=== PATIENT | male | born 1970 | race Caucasian/White ===

== ENCOUNTER 2017-12-20 15:08 | Emergency (ER) | payer OTHER, SELFPAY ==
[2017-12-20 15:09] VITALS: BP 147/68; PULSE 96; RESP 12; TEMP 36.8; O2SAT 95; BMI 27.4
--- NOTE | 2017-12-20 15:25 | ED.VISSUMM ---
- ER Visit Summary Date of Service: 12/20/17 Chief Complaint: I am too drunk History of Present Illness: The patient is a 47 M who was brought to the emergency room by friends. He is staying with these friends. He admits to drinking for many years. His beverage of choice is vodka. He is unable to tell me how much he drank other than I drank a lot. Patient had to be aroused several times during the history and physical because he would doze off. He has absolutely no complaints. History is limited secondary to acute intoxication. Physical Examination: Vital signs are remarkable and elevated blood pressure 147/68. He is not alert, but he is oriented. He has a strabismus. Pupils equal round reactive. Extra muscles are intact. Sclerae anicteric. Mucosa is moist. Nares patent without discharge. Neck is supple. Heart is regular without murmur, gallop or rub. S1 and S2 are normal. Lungs are clear to auscultation with good movement of air bilaterally. Abdomen is soft nontender with bowel sounds present. There is no hepatosplenomegaly. There are no bruises noted on the torso or extremities. There is no evidence of inguinal hernia. Motor is 5/5. Sensations intact. DTRs are 1-2+ symmetric with no clonus. Test Results: This is unremarkable. Platelet count is on 23,000. BMP is unremarkable. INR is normal. Alcohol is 362. Emergency Department Course and Treatment: IV was established she was made n.p.o. and placed on a monitor. Will obtain an alcohol level and in light of the fact that he drinks on a regular basis will obtain electronic panel to rule out hyponatremia, CBC to rule out anemia, thrombocytopenia and PT/INR to assess liver function. Treatment Plan: Since patient's POA is his mother and she was transferred to another facility he will be observed until he is sober and able to leave under his own power. Disposition: Discharge with significant other to [facility] where they are presently staying Impression: 1. Decreased level of consciousness secondary to acute alcohol intoxication 2. Thrombocytopenia This note was generated with [employer]ation software. It may contain incorrect words, spelling, and punctuation that were not noted in review of the chart prior to signing ED Disposition - Plan for ED Patient: Disposition: Home or Assisted Living Chief Complaint: ETOH Intox Instructions: ED Alcohol Intoxication Referrals: Dagoberto Mari MD [Primary Care Provider] - As Needed
--- NOTE | 2017-12-20 15:28 | ED.DCSUM_ITS ---
- ER Visit Summary Date of Service: 12/20/17 Chief Complaint: I am too drunk History of Present Illness: The patient is a 47 M who was brought to the emergency room by friends. He is staying with these friends. He admits to drinking for many years. His beverage of choice is vodka. He is unable to tell me how much he drank other than I drank a lot. Patient had to be aroused several times during the history and physical because he would doze off. He has absolutely no complaints. History is limited secondary to acute intoxication. Physical Examination: Vital signs are remarkable and elevated blood pressure 147 /68. He is not alert, but he is oriented. He has a strabismus. Pupils equal round reactive. Extra muscles are intact. Sclerae anicteric. Mucosa is moist. Nares patent without discharge. Neck is supple. Heart is regular without murmur, gallop or rub. S1 and S2 are normal. Lungs are clear to auscultation with good movement of air bilaterally. Abdomen is soft nontender with bowel sounds present. There is no hepatosplenomegaly. There are no bruises noted on the torso or extremities. There is no evidence of inguinal hernia. Motor is 5/5. Sensations intact. DTRs are 1-2+ symmetric with no clonus. Test Results: This is unremarkable. Platelet count is on 23,000. BMP is unremarkable. INR is normal. Alcohol is 362. Emergency Department Course and Treatment: IV was established she was made n.p.o. and placed on a monitor. Will obtain an alcohol level and in light of the fact that he drinks on a regular basis will obtain electronic panel to rule out hyponatremia, CBC to rule out anemia, thrombocytopenia and PT/INR to assess liver function. Treatment Plan: Since patient's POA is his mother and she was transferred to another facility he will be observed until he is sober and able to leave under his own power. Disposition: Discharge with significant other to [facility] where they are presently staying Impression: 1. Decreased level of consciousness secondary to acute alcohol intoxication 2. Thrombocytopenia This note was generated with [employer] software. It may contain incorrect words, spelling, and punctuation that were not noted in review of the chart prior to signing ED Disposition - Plan for ED Patient: Disposition: Home or Assisted Living Chief Complaint: ETOH Intox Instructions: ED Alcohol Intoxication Referrals: Dagoberto Mari MD [Primary Care Provider] - As Needed
[2017-12-20 15:43] LABS: Hematocrit 44.5 % (40-54); Hemoglobin 15.4 g/dl (13.0-16.5); Mean Corp Hgb Conc 34.6 g/gl (32-36); Mean Corpuscular Hgb 32.2 pg (27.0-32.0); Mean Corpuscular Volume 92.9 fL (80-94); Mean Platelet Vol. 9.4 fl (6.2-12.0); Platelet Count 123 K/mm3 (150-450); RBC Distribution Width CV 14.3 % (11.6-14.6); RBC Distribution Width SD 47.2 fl (35.1-43.9); Red Blood Count 4.79 M/mm3 (4.6-6.2); White Blood Count 4.7 K/mm3 (4.4-11.0)
[2017-12-20 15:50] LABS: Scan Indicated on CBC? Y/N NO
[2017-12-20 15:56] LABS: International Normalized Ratio 0.9; Prothrombin Time (Protime)PT. 12.5 SECONDS (11.7-14.9)
[2017-12-20 15:57] LABS: ALB/GLOB Ratio 1.1 RATIO (0.9-2.4); AST(SGOT) 17 U/L (15-37); Alanine Aminotransfer ALT/SGPT 18 U/L (16-61); Albumin, Serum 3.8 g/dL (3.2-5.0); Alkaline Phosphatase 94 U/L (45-117); Anion Gap 5 (5-15); BUN 15 mg/dL (7-18); BUN/Creat Ratio 17.5 RATIO (10-20); Chloride 109 mmol/L (98-107); Creatinine, Serum 0.86 mg/dL (0.70-1.30); EST Glomerular Filtration Rate 101 mL/min (>60); Est Glom Filt Rate - Afr Amer 122 mL/min (>60); Estimated Creatinine Clearance 108.46 ml/min; Globulin 3.5 g/dL (2.2-4.2); Glucose 90 mg/dL (74-106); Potassium 3.8 mmol/L (3.5-5.1); Protein, Total 7.3 g/dL (6.4-8.2); Sodium Level 145 mmol/L (136-145)
[2017-12-20 17:08] VITALS: PULSE 87; RESP 14; O2SAT 96
--- NOTE | 2017-12-20 18:30 | ED.RN ---
Pt called out asking for nurse, states he wants to leave and that we cant legally keep in here. Pt states he is going to call the commissary steward and report us for keeping him against his will. pt aware he is not pinked slipped. Advised we need to observe him until his alcohol level is low enough for him to safely go home. Dr. Seay aware
[2017-12-20 20:13] VITALS: RESP 14
[2017-12-20 21:34] VITALS: BP 132/102; PULSE 84; RESP 18; O2SAT 98
== END 2017-12-20 21:35 | disposition home or self-care (01) ==
PROVIDERS: Emergency Provider Emergency Medicine; Family Provider Family Medicine; PCP Family Medicine
DX: F10.129 Alcohol abuse with intoxication, unspecified (principal); R40.0 Somnolence; D69.6 Thrombocytopenia, unspecified; E66.9 Obesity, unspecified; Y90.8 Blood alcohol level of 240 mg/100 ml or more
CPT/HCPCS: 80053; 80320; 85027; 85610; 99284; A4216; G0480

== ENCOUNTER 2017-12-22 09:31 | Emergency (ER) | payer OTHER, SELFPAY ==
[2017-12-22 09:32] VITALS: BP 134/87; PULSE 86; PULSE 89; RESP 14; RESP 15; TEMP 36.9; O2SAT 92; O2SAT 93; BMI 29.0
[2017-12-22 11:07] VITALS: BP 136/85; PULSE 101; RESP 15; O2SAT 91
[2017-12-22 12:14] VITALS: BP 137/85; PULSE 122; RESP 14; O2SAT 95
--- NOTE | 2017-12-22 13:04 | ED.RN ---
PT AMBULATING IN ED, GAIT STEADY, COHERENT. REQUESTING TO GO HOME. DR BATISTA AWARE AND STS THAT IF PT CAN FIND A DC RIDE, PT CAN GO HOME. THIS NURSE CALLED SILVIO (GIRLFRIEND) AND DAVIE (STEP-DAD), AND BOTH PARTIES HAVE REFUSED TO OBTAIN PT FOR DC RIDE. BOTH HAVE EXPRESSED CONCERN THAT HE NEEDS HELP AND NEEDS TO SPEAK TO CRISIS COUNSELOR OR HE WILL LOSE HIS JOB DESPITE THAT THE PT DENIES NEED TO SPEAK TO CRISIS, SUICIDAL IDEATION, HOMICIDAL IDEATION, OR WANT TO SOBER UP. FAMILY ALSO STATED THAT PT DID NOT EXPRESS WANTING TO GET CLEAN. DR BATISTA AWARE OF THIS.
[2017-12-22 14:09] VITALS: BP 158/102; PULSE 104; RESP 16; O2SAT 94
--- NOTE | 2017-12-22 14:46 | ED.RN ---
LATE ENTRY, AT 1410 THIS NURSE CALL PT'S GIRLFRIEND SILVIO AT [phone]. PT HAS BEEN TALKING INTERMITTENTLY SINCE.
--- NOTE | 2017-12-22 14:54 | ED.DCSUM_ITS ---
- ER Visit Summary Date of Service: 12/22/17 Chief Complaint: Alcohol intoxication History of Present Illness: The patient is a 47 M who presents with acute alcohol intoxication. He was seen a couple of days ago for similar reasons. Apparently someone from where he is staying called EMS because he was acutely intoxicated this morning. The patient admits to heavy alcohol use. He currently has no complaints. He denies any recent illness. No fall or injury. I spoke to EMS. He was not belligerent. He was not suicidal. She states he is uncertain why he was brought but believes it was just sober up. Physical Examination: Afebrile vitals are unremarkable Moist because membranes Heart regular rate and rhythm Lungs are clear Abdomen soft Patient is easily arousable he does have slurred speech and appeared clinically intoxicated there are no focal or lateralizing neurological deficits Test Results: Not indicated Emergency Department Course and Treatment: Patient had screening 2 days ago for alcohol-related abnormality such as anemia, coagulopathy, hyponatremia. I do not believe there is an indication for any repeat lab testing at this time. He has no complaints. He was observed until clinically sober. He called a couple of family members. They would not pick him up. Apparently they wanted him to go to rehab. We explained that we cannot send somebody to rehab unless they themselves want this. The patient just wants to leave. He was able to get a hold of his girlfriend who he states will come pick him up. Has been reevaluated multiple times. At the time of most recent evaluation he has clear speech and is able to ambulate without difficulty and make phone calls for rides. Again he has no complaints. Patient was discharged. Treatment Plan: [] Disposition: Discharge Impression: Acute alcohol intoxication. This note was generated with [employer] dictation software. It may contain incorrect words, spelling, and punctuation that were not noted in review of the chart prior to signing ED Disposition - Plan for ED Patient: Chief Complaint: ETOH Intox Referrals: Dagoberto Mari MD [Primary Care Provider] -
--- NOTE | 2017-12-22 14:54 | ED.DEP ---
ED Disposition - Plan for ED Patient: Chief Complaint: ETOH Intox Instructions: ED Alcohol Intoxication Referrals: Dagoberto Mari MD [Primary Care Provider] -
--- NOTE | 2017-12-22 14:56 | ED.RN ---
THIS NURSE SPOKE WITH PT'S GIRLFRIEND, SILVIO, AND SILVIO WILL BE HERE AROUND [address] BATISTA AWARE OF SAME.
[2017-12-22 15:33] VITALS: BP 165/99; PULSE 103; RESP 16; O2SAT 95
--- NOTE | 2017-12-26 13:21 | ED.RN ---
Work note given for 12/22/17.
== END 2017-12-22 15:34 | disposition home or self-care (01) ==
PROVIDERS: Emergency Provider Emergency Medicine; Family Provider Family Medicine; PCP Family Medicine
DX: F10.129 Alcohol abuse with intoxication, unspecified (principal); I10 Essential (primary) hypertension; Z79.899 Other long term (current) drug therapy
CPT/HCPCS: 99283

== ENCOUNTER 2018-03-15 01:29 | Emergency (ER) | payer OTHER, SELFPAY ==
[2018-03-15] VITALS (11 sets, daily range): BP systolic 128–174; BP diastolic 72–92; PULSE 75–107; RESP 16–24; TEMP 36.8; O2SAT 95–100; BMI 29.5
--- NOTE | 2018-03-15 01:41 | EKG12_ITS ---
Test Reason : OVERDOSE/ETOH Blood Pressure : / mmHG Vent. Rate : 098 BPM Atrial Rate : 098 BPM P-R Int : 160 ms QRS Dur : 086 ms QT Int : 360 ms P-R-T Axes : 043 -07 028 degrees QTc Int : 459 ms Normal sinus rhythm Normal ECG Confirmed by DUONG LAKE, AVRIL ([id number]), editor farm journal ROSANNE SALAZAR ([id number]) on 03/17/2018 1:06:32 PM Referred By: KAREL Confirmed By:AVRIL WATTERS MD
--- NOTE | 2018-03-15 01:45 | ED.DCSUM_ITS ---
- ER Visit Summary Date of Service: 03/15/18 Chief Complaint: [Overdose] History of Present Illness: The patient is a 47 M [who presents the emergency department after overdosing on his girlfriend's medications. He is a daily drinker he drinks heavily. Tonight he took 9 2 mg Klonopin hoping that he would not wake up. He was pink slipped by police as he did tell his girlfriend that he would slice her throat and then his and also told her that he was going up by a gun so he could blow his brains out. When asked why he took this medication he states that he was not too happy with his . He denies any medical problems.] Physical Examination: [] Blood pressure 138/92 heart rate 104 respiratory rate 23 pulse ox 95% on room air Somnolent male in no acute distress Conjunctivae injected bilaterally with drooping eyelids bilaterally that are symmetric Slow slurred speech Regular tachycardic rhythm no murmurs Clear to auscultation bilaterally no respiratory distress Abdomen soft and nontender normal bowel sounds no masses Patient speech and actions are delayed slurred and ataxic but there are no focal deficits he is alert and oriented ?3 Test Results: [] Emergency Department Course and Treatment: [Patient was given 2 L of fluid. He was placed on a clinical research monitor. EKG was obtained. He took these medicines about 10 PM. Activated charcoal then was not indicated. Workup for overdose was pursued. Suicide precautions were maintained. Patient was evaluated by mental health. [place] slip was maintained by police as they stated he threatened to get a gun and shoot himself and also had threatened to kill himself and his girlfriend. Formal disposition is pending] Treatment Plan: [] Disposition: [Pending] Impression: [Suicidal ideation, intentional overdose] This note was generated with [employer] dictation software. It may contain incorrect words, spelling, and punctuation that were not noted in review of the chart prior to signing ED Disposition - Plan for ED Patient: Disposition: Home or Assisted Living Chief Complaint: ETOH Intox Referrals: Dagoberto Mari MD [Primary Care Provider] -
[2018-03-15] MEDS: 0.9% Normal Saline 1,000 ML 999 ML IV ×2 (01:53→02:51)
[2018-03-15 02:04] LABS: Absolute Neutrophil Count 2.9 X10^3/uL (2.0-7.7); Basophil# 0.02 X10^3/uL; Basophil% 0.3 % (0-1); Eosinophil# 0.08 X10^3/uL; Eosinophils% 1.3 % (0-5); Hematocrit 41.4 % (40-54); Lymphocyte % 39.4 % (19-41); Mean Corp Hgb Conc 36.2 g/gl (32-36); Mean Corpuscular Hgb 33.3 pg (27.0-32.0); Mean Corpuscular Volume 91.8 fL (80-94); Mean Platelet Vol. 9.3 fl (6.2-12.0); Monocyte# 0.64 X10^3/uL; Monocyte% 10.5 % (0-10); Neutrophil # 2.93 X10^3/uL (2.7-7.7); Neutrophil % 48.2 % (47-70); POSITIVE COUNT NO; POSITIVE DIFFERENTIAL NO; POSITIVE MORPHOLOGY NO; Platelet Count 181 K/mm3 (150-450); RBC Distribution Width CV 13.7 % (11.6-14.6); RBC Distribution Width SD 45.1 fl (35.1-43.9); Red Blood Count 4.51 M/mm3 (4.6-6.2); White Blood Count 6.1 K/mm3 (4.4-11.0)
[2018-03-15 02:23] LABS: Anion Gap 6 (5-15); BUN 22 mg/dL (7-18); BUN/Creat Ratio 21.2 RATIO (10-20); Calcium,Total 7.5 mg/dL (8.5-10.1); Chloride 103 mmol/L (98-107); Creatinine, Serum 1.04 mg/dL (0.70-1.30); EST Glomerular Filtration Rate 81 mL/min (>60); Est Glom Filt Rate - Afr Amer 98 mL/min (>60); Estimated Creatinine Clearance 89.69 ml/min; Glucose 112 mg/dL (74-106); Potassium 4.1 mmol/L (3.5-5.1); Sodium Level 139 mmol/L (136-145); Thyroid Stim Hormone (TSH) 1.81 uIU/mL (0.358-3.74)
[2018-03-15 03:33] LABS: Acetaminophen (Tylenol) Level < 10.0 ug/mL (10.0-30.0); Salicylate < 1.7 mg/dL (2.8-20.0)
[2018-03-15 03:57] LABS: Color, Urine Yellow (Yellow); Glucose, Dipstick Normal (Normal); Ketone-Dipstick 5 mg/dl (Negative); Leukocyte Esterase-Dipstick Negative /ul (Negative); Nitrite-Dipstick Negative (Negative); Occult Blood-Urine 50 /ul (Negative); Protein-Dipstick 30 mg/dl (Negative); Specific Gravity, Urine 1.025 (1.002-1.030); Urine Bilirubin Dipstick Negative (Negative); Urine Clarity Sl. Cloudy (Clear); Urine Urobilinogen Normal (Normal); White Blood Cells 0 SEEN /hpf (0-5)
[2018-03-15 04:17] LABS: Amphetamine Urine VISTA NEGATIVE (<1000 ng/mL); Barbiturate Urine VISTA NEGATIVE (< 200 ng/mL); Benzodiazepine Urine VISTA NEGATIVE (< 200 ng/mL); Cocaine Urine VISTA NEGATIVE (< 300 ng/mL); Ecstacy Urine VISTA POSITIVE (< 500 ng/mL); Methadone Urine VISTA NEGATIVE (< 300 ng/mL); PCP Urine VISTA NEGATIVE (< 25 ng/mL); THC Urine VISTA NEGATIVE (< 50 ng/mL); Vista UDS pH Range 6
[2018-03-15 04:20] LABS: Bacteria 1+ /hpf (None Seen); Mucous, Urine 1+ /hpf (<or=2+); Squamous Epithelial Cells - UA 0-5 SEEN /hpf (0-5)
[2018-03-15 04:21] LABS: Red Blood Cells-Urine 0-5 SEEN /hpf (0-5)
--- NOTE | 2018-03-15 06:21 | ED.RN ---
called crisis to see this pt, rosaline is summer sessions director
--- NOTE | 2018-03-15 06:54 | NURSING ---
CHEYENNE, CRISIS, HERE
--- NOTE | 2018-03-15 08:24 | ED.RN ---
Sasha Holden, Mother, is POA phone [phone] or [phone]
--- NOTE | 2018-03-15 10:09 | NURSING ---
LORENA KAT, CALLED WITH AN UPDATE. SHE HAS FAXED EVERYTHING TO [facility] AND WAITING TO HEAR BACK FROM THEM.
--- NOTE | 2018-03-15 11:11 | ED.RN ---
pt POA mother and removed pt's money from his wallet to secure it.
== END 2018-03-15 12:24 | disposition home or self-care (01) ==
PROVIDERS: Emergency Provider Emergency Medicine; Family Provider Family Medicine; PCP Family Medicine
DX: R45.851 Suicidal ideations (principal); F10.10 Alcohol abuse, uncomplicated; T42.4X2A Poisoning by benzodiazepines, intentional self-harm, initial encounter; Z79.899 Other long term (current) drug therapy; Y92.009 Unspecified place in unspecified non-institutional (private) residence as the place of occurrence of the external cause
CPT/HCPCS: 80048; 80307; 80320; 80329; 81001; 84443; 85025; 93005; 96360; 99284; J7030; A4216; G0480

== ENCOUNTER 2018-03-23 18:53 | Emergency (ER) | payer OTHER, SELFPAY ==
[2018-03-23 18:55] VITALS: BP 127/90; PULSE 98; RESP 16; TEMP 37.3; O2SAT 95; BMI 28.7
[2018-03-23 19:30] LABS: Absolute Lymphocyte Count 1.67 X10^3/ul (0.83-4.51); Absolute Neutrophil Count 2.2 X10^3/uL (2.0-7.7); Basophil# 0.03 X10^3/uL; Basophil% 0.7 % (0-1); Eosinophil# 0.06 X10^3/uL; Eosinophils% 1.3 % (0-5); Hematocrit 43.9 % (40-54); Lymphocyte # 1.67 X10^3/ul (4.0); Lymphocyte % 36.3 % (19-41); Mean Corp Hgb Conc 34.2 g/gl (32-36); Mean Corpuscular Hgb 32.3 pg (27.0-32.0); Mean Corpuscular Volume 94.4 fL (80-94); Mean Platelet Vol. 8.7 fl (6.2-12.0); Monocyte# 0.66 X10^3/uL; Monocyte% 14.3 % (0-10); Neutrophil # 2.17 X10^3/uL (2.7-7.7); Neutrophil % 47.2 % (47-70); Platelet Count 222 K/mm3 (150-450); RBC Distribution Width CV 14.4 % (11.6-14.6); RBC Distribution Width SD 49.1 fl (35.1-43.9); Red Blood Count 4.65 M/mm3 (4.6-6.2); White Blood Count 4.6 K/mm3 (4.4-11.0)
[2018-03-23 19:33] LABS: POSITIVE COUNT NO; POSITIVE DIFFERENTIAL NO; POSITIVE MORPHOLOGY NO
[2018-03-23 19:43] LABS: Anion Gap 6 (5-15); BUN 13 mg/dL (7-18); BUN/Creat Ratio 14.7 RATIO (10-20); Chloride 105 mmol/L (98-107); Creatinine, Serum 0.88 mg/dL (0.70-1.30); EST Glomerular Filtration Rate 98 mL/min (>60); Est Glom Filt Rate - Afr Amer 118 mL/min (>60); Glucose 83 mg/dL (74-106); Potassium 3.7 mmol/L (3.5-5.1); Sodium Level 141 mmol/L (136-145)
--- NOTE | 2018-03-23 19:55 | RAD_ITS ---
STUDY: X-RAY - LEFT FOOT CLINICAL: Male, 47 years old. Injury to the great toe. TECHNIQUE: 3 view(s) of the foot. COMPARISON: None. FINDINGS: Normal talus, calcaneus, and tarsal bones. Normal visualized subtalar, talonavicular, calcaneocuboid, tarsal and tarsometatarsal articulations. Normal metatarsi. Normal metatarsophalangeal joint of the great toe. Normal tibial and fibular sesamoid bones. Normal phalanges of the great toe. Normal second through fifth metatarsophalangeal joints. Mild arthrosis of the interphalangeal joints of the lesser toes. Normal phalanges of the lesser toes. The soft tissue structures are unremarkable. RAD/Foot min 3 Views IMPRESSION: Without degenerative changes of the forefoot. There is no acute fracture or dislocation. Electronically Signed: Michele Bond DO at 20:07 EDT Tel [phone], Service support ,
[2018-03-23 20:11] VITALS: RESP 18
[2018-03-23 20:13] LABS: Amphetamine Urine VISTA NEGATIVE (<1000 ng/mL); Barbiturate Urine VISTA POSITIVE (< 200 ng/mL); Benzodiazepine Urine VISTA POSITIVE (< 200 ng/mL); Cocaine Urine VISTA NEGATIVE (< 300 ng/mL); Ecstacy Urine VISTA NEGATIVE (< 500 ng/mL); Methadone Urine VISTA NEGATIVE (< 300 ng/mL); PCP Urine VISTA NEGATIVE (< 25 ng/mL); THC Urine VISTA NEGATIVE (< 50 ng/mL); Vista UDS pH Range 6
[2018-03-23 20:43] LABS: Acetaminophen (Tylenol) Level < 2.0 ug/mL (10.0-30.0); Salicylate < 1.7 mg/dL (2.8-20.0)
[2018-03-23 21:00] VITALS: RESP 16
[2018-03-23 22:04] VITALS: RESP 17
[2018-03-23 23:00] VITALS: RESP 18
[2018-03-23 23:42] VITALS: BP 136/76; PULSE 89; RESP 18; O2SAT 97
--- NOTE | 2018-03-23 23:42 | ED.DCSUM_ITS ---
- ER Visit Summary Date of Service: 03/23/18 Chief Complaint: Depression History of Present Illness: The patient is a 47 M presenting for evaluation secondary depression. Patient has an underlying history of depression and suicide attempts and actually was just recently released from a facility. Patient apparently last night took 9 Klonopin stating that he knew that it potentially could hurt him but he just wanted to sleep. Patient was drinking alcohol today and cut his arm. Patient states that he was trying to hurt himself but denies that he is being suicidal. Review of systems otherwise negative. Physical Examination: Vital signs within normal limits. Physical exam is notable for examination left upper extremity which shows some superficial abrasions in the left lower extremity which shows avulsion of the great toenail without any evidence of laceration to the nailbed. Patient has a flat affect and poor insight but denies being suicidal or homicidal Test Results: Screening workup was found to be unremarkable including x-ray of the foot Emergency Department Course and Treatment: Patient presented for evaluation secondary to suicidal type gestures. Patient's workup showed positive toxicology ethanol screens. His x-ray of the foot was negative. Patient was evaluated by crisis, who had a discussion with myself as well and while the patient has impulsivity and poor insight I do not believe that he is currently a risk to himself. Patient will be given a acute follow-up appointment in the outpatient setting. Disposition: Discharge Impression: 1. Depression 2. Left great toenail avulsion This note was generated with [employer] dictation software. It may contain incorrect words, spelling, and punctuation that were not noted in review of the chart prior to signing ED Disposition - Plan for ED Patient: Disposition: Home or Assisted Living Chief Complaint: Suicidal Diagnosis: Toenail avulsion, Depression Instructions: ED Depression Referrals: Dagoberto Mari MD [Primary Care Provider] - Additional Instructions: Followup with Crisis as scheduled
== END 2018-03-23 23:45 | disposition home or self-care (01) ==
PROVIDERS: Emergency Provider Emergency Medicine; Family Provider Family Medicine; PCP Family Medicine
DX: F32.9 Major depressive disorder, single episode, unspecified (principal); S91.202A Unspecified open wound of left great toe with damage to nail, initial encounter; Z79.899 Other long term (current) drug therapy; X58.XXXA Exposure to other specified factors, initial encounter; Y93.9 Activity, unspecified; Y92.9 Unspecified place or not applicable; Y99.9 Unspecified external cause status
CPT/HCPCS: 73630; 80048; 80307; 80320; 80329; 85025; 99285; G0480

== ENCOUNTER 2018-05-01 15:39 | Inpatient (IN) | payer MEDICAID, SELFPAY ==
[2018-05-01] VITALS (10 sets, daily range): BP systolic 131–160; BP diastolic 73–97; PULSE 114–156; RESP 15–24; TEMP 36.7; O2SAT 93–99; BMI 28.7; BMI 28.3
--- NOTE | 2018-05-01 16:01 | ED.DCSUM_ITS ---
- ER Visit Summary Date of Service: 05/01/18 Chief Complaint: Jaundice History of Present Illness: The patient is a [address] Dagoberto Mari in [facility]. He reports that he has been binge drinking for 1 month. He is a poor informant. When asked the amount he drinks he reports I do not know how much-a ton. When asked what he drinks he reports I drink everything. He states his last drink was at 4 AM and at that point he had vodka and orange juice. Patient reports that he has jaundice that began approximate 1 week ago and has been gradually increasing. He complains of subjective fever and chills. He has epigastric abdominal pain that is 7 out of 10 in severity. He has had nausea with multiple episodes of emesis. No blood in his emesis. He has diffuse myalgias and generalized weakness. Reports he has not eaten anything for approximately 5 days. Physical Examination: Vitals: 98.1, 139/73, 156, 22, 95% room air which is not hypoxic. General: Well-nourished and well-developed. Head: Normocephalic atraumatic. Neck: Supple, no lymphadenopathy. No JVD. Nontender. Cardiovascular: Regular rate and rhythm. No murmurs. Respiratory: No respiratory distress. Clear to auscultation bilaterally. Abdominal: Soft, moderate epigastric tenderness to palpation, nondistended, normal bowel sounds. No guarding, rebound, or peritoneal signs. Back: Nontender. Extremities: Nontender, no edema. Skin: Jaundiced. Neurologic: Alert and oriented ?3. Cranial nerves II through XII are intact. Normal strength and sensation. Psych: Depressed affect. Test Results: CBC is normal. Blood alcohol level is 0. Chem-7 is remarkable for a sodium 124, chloride of 86, glucose 135, calcium 7.9, creatinine 1.44. LFTs are marked for total bili of 12.1 and direct bili of 8.47. Alk phos of 604. ALT is 360, AST is 141. Lipase is normal. Emergency Department Course and Treatment: Patient had an IV placed. He was given Zofran and Ativan IV. He was given Librium p.o. he was given 2 L of normal saline. Treatment Plan: I left a message for [facility] the patient is clearly in alcohol withdrawal. He will be discussed with the hospitalist and admitted for further evaluation and treatment. Disposition: Admitted in serious condition. Impression: 1. Jaundice. 2. Alcohol withdrawal. 3. Elevated LFTs. 4. Hyponatremia. 5. Acute renal insufficiency. 6. Critical care time 30 minutes. This note was generated with [employer] software. It may contain incorrect words, spelling, and punctuation that were not noted in review of the chart prior to signing ED Disposition - Plan for ED Patient: Chief Complaint: Substance Abuse Referrals: Dagoberto Mari MD [Primary Care Provider] -
[2018-05-01] MEDS: 0.9% Normal Saline 1,000 ML 1000 ML IV ×2 (16:23→17:19)
[2018-05-01] MEDS: Ondansetron 4 MG/2 ML Vial IV (16:26)
[2018-05-01] MEDS: LORazepam 2 MG/ML Syringe IV (16:26)
[2018-05-01 16:39] LABS: Absolute Lymphocyte Count 1.43 X10^3/ul (0.83-4.51); Absolute Neutrophil Count 5.2 X10^3/uL (2.0-7.7); Basophil# 0.02 X10^3/uL; Basophil% 0.3 % (0-1); Hematocrit 40.2 % (40-54); Hemoglobin 13.8 g/dl (13.0-16.5); Lymphocyte # 1.43 X10^3/ul (4.0); Lymphocyte % 19.3 % (19-41); Mean Corp Hgb Conc 34.3 g/gl (32-36); Mean Corpuscular Hgb 33.7 pg (27.0-32.0); Mean Platelet Vol. 10.9 fl (6.2-12.0); Monocyte# 0.73 X10^3/uL; Monocyte% 9.9 % (0-10); Neutrophil # 5.19 X10^3/uL (2.7-7.7); Neutrophil % 70.1 % (47-70); Platelet Count 150 K/mm3 (150-450); RBC Distribution Width CV 16.7 % (11.6-14.6); RBC Distribution Width SD 57.8 fl (35.1-43.9); White Blood Count 7.4 K/mm3 (4.4-11.0)
[2018-05-01 16:42] LABS: POSITIVE COUNT NO; POSITIVE DIFFERENTIAL NO; POSITIVE MORPHOLOGY NO
[2018-05-01] MEDS: chlordiazePOXIDE 25 MG Capsule 50 MG PO (17:18)
--- NOTE | 2018-05-01 17:33 | ED.RN ---
AFTER FAMILY LEFT THE ROOM PT BEGAN TO ACCUSE STAFF OF TOUCHING HIS PENIS. DR AND STAFF INFORMED. TWO STAFF WILL ENTER PATIENTS ROOM AT ALL TIMES. ETHERNET NETWORK ARCHITECT MADE AWARE OF ISSUE AND INFORMED OF PLAN OF CARE. Chely BLUM RN
[2018-05-01 17:45] LABS: Alcohol, Blood (Medical)-Serum < 3.0 mg/dL
[2018-05-01 18:34] LABS: Albumin, Serum 2.4 g/dL (3.2-5.0); BUN 12 mg/dL (7-18); BUN/Creat Ratio 8.3 RATIO (10-20); Calcium,Total 7.9 mg/dL (8.5-10.1); Creatinine, Serum 1.44 mg/dL (0.70-1.30); EST Glomerular Filtration Rate 55 mL/min (>60); Est Glom Filt Rate - Afr Amer 67 mL/min (>60); Estimated Creatinine Clearance 64.07 ml/min; Globulin 3.4 g/dL (2.2-4.2); Glucose 135 mg/dL (74-106); Protein, Total 5.8 g/dL (6.4-8.2)
[2018-05-01 18:35] LABS: AST(SGOT) 360 U/L (15-37); Lipase 197 U/L (73-393)
[2018-05-01 18:36] LABS: Alanine Aminotransfer ALT/SGPT 141 U/L (16-61); Alkaline Phosphatase 604 U/L (45-117); Anion Gap 15 (5-15); Bilirubin, Direct 8.47 mg/dL (0.00-0.30); Chloride 86 mmol/L (98-107); Potassium 3.9 mmol/L (3.5-5.1); Sodium Level 124 mmol/L (136-145)
[2018-05-01 20:51] LABS: Amphetamine Urine VISTA NEGATIVE (<1000 ng/mL); Barbiturate Urine VISTA NEGATIVE (< 200 ng/mL); Benzodiazepine Urine VISTA NEGATIVE (< 200 ng/mL); Cocaine Urine VISTA NEGATIVE (< 300 ng/mL); Ecstacy Urine VISTA POSITIVE (< 500 ng/mL); Methadone Urine VISTA NEGATIVE (< 300 ng/mL); PCP Urine VISTA NEGATIVE (< 25 ng/mL); THC Urine VISTA NEGATIVE (< 50 ng/mL); Vista UDS pH Range 6
--- NOTE | 2018-05-01 21:01 | PCM.HP.STD ---
Problem List (1) ETOH abuse Status: Acute (2) Methamphetamine abuse Status: Acute (3) Transaminitis Status: Acute (4) DONTA (acute kidney injury) Status: Acute (5) Hyponatremia Status: Acute History of Present Illness Date of Admission: 05/01/18 Chief Complaint: EtOH withdrawal The patient is a 48 year old male w/ h/o EtOH abuse admitted for EtOH withdrawal. He has multiple admission for EtOH withdrawals. He also has been through multiple rehabs. He has been in rehab for the past few months and almost immediately when he finished rehab he went back to drinking. He wound spend most of his day drinking. He would drink several fifth a day. However, in the past 2 days, he has been having intractable n/v. Nothing made it better or worse. He also has persistent diarrhea. He does not want to stop drinking but the severity of his symptoms made him unable to drink so he went to the ED for workup. Past Medical History Allergies amoxicillin Adverse Reaction (Verified 05/01/18 20:01) Upset Stomach Home Medications: Ambulatory Orders Medication Instructions Recorded Fluvoxamine Maleate [Luvox Cr] 100 mg PO BID 10/16/15 Trazodone HCl 300 mg PO QHS PRN 10/16/15 Gabapentin [Neurontin] 300 mg PO TID 05/01/18 Smoking Status: Current some day smoker Tobacco Use: Cigarettes, Chew Alcohol: Heavy Drugs: - - Meth - *Family History Maternal History Items: No pertinent history Review of Systems Constitutional: Denies: Chills, Fever, Weight Change HEENT: Denies: Head Aches, Sinus Congestion, Sinus Drainage Cardiovascular: Denies: Chest Pain, Palpitations Respiratory: Denies: Cough, Shortness of breath at rest, Sputum production Gastrointestinal: Reports: Abdominal Pain, Diarrhea, Nausea, Vomiting Genitourinary: Denies: Dysuria Musculoskeletal: Denies: Joint Pain, Joint Tenderness Skin: Denies: Rash, Wounds Neurological: Denies: Numbness, Tingling, Focal weakness Psychiatric: Denies: Anxiety, Depression, Homicidal Ideations, Suicidal Ideations Hematologic/ Lymphatic: Denies: Easy Bruising, Easy Bleeding VTE Information - Inpt Only VTE Present on Admission: No VTE Mechan Device Prophylaxis: SCD's VTE Pharm Prophylaxis ordered?: Yes Patient Problems: Active and Suspected Problems ETOH abuse (Acute) Methamphetamine abuse (Acute) Transaminitis (Acute) DONTA (acute kidney injury) (Acute) Hyponatremia (Acute) - Physical Exam General: Alert, Oriented x3, Cooperative HEENT: Atraumatic, PERRLA, EOMI, Normocephalic Neck: Supple, No JVD, Negative Carotid Bruits Lungs: Clear to auscultation, Normal air movement Cardiovascular: Regular rate, No murmurs Abdomen: Bowel Sounds Present, Soft, Non Tender Extremities: No edema, Capillary Refill Less than 3 Seconds Skin: No rashes, No breakdown Musculoskeletal: No Tenderness to Palpation of Joints or Extremities Neurological: Cranial nerves II-XII grossly intact Psych/Mental Status: Normal Affect, Appropriate Vital Signs Temp Pulse Resp BP Pulse Ox 98.1 F 124 H 18 140/95 H 93 05/01/18 15:40 05/01/18 20:09 05/01/18 20:09 05/01/18 20:09 05/01/18 20:09 Oxygen Delivery Method Room Air Laboratory Tests Past 24 Hrs 05/01/18 20:00 Urine Opiates Screen NEGATIVE Urine Methadone Screen NEGATIVE Ur Barbiturates Screen NEGATIVE Ur Phencyclidine Scrn NEGATIVE Ur Amphetamines Screen NEGATIVE U Methamphetamin-MDMA POSITIVE H U Benzodiazepines Scrn NEGATIVE Urine Cocaine Screen NEGATIVE U Cannabinoids Screen NEGATIVE Ur Drug Screen Comment Assessment/Plan All Active Problems ETOH abuse (Acute) Methamphetamine abuse (Acute) Transaminitis (Acute) DONTA (acute kidney injury) (Acute) Hyponatremia (Acute) 48 year old male w/ h/o EtOH abuse admitted for EtOH withdrawal. 1) EtOH withdrawal: Will start CIWA protocol. C/w MVI. Monitor for DTs. Supportive care. 2) Polysubstance drug abuse: Utox positive for methamphetamine. Supportive care. 3) DONTA: Likely azotemia. Hydration. Supportive care. 4) Hyponatremia: Likely hypovolemia hyponatremia. Hydration. Monitor the rate of rise. 5) EtOH hepatitis: Serial labs. Will get hepatitis panel. Supportive care.
[2018-05-01] MEDS: 0.9% Normal Saline 1,000 ML 125 ML IV (22:43)
[2018-05-01] MEDS: Heparin Injection (Vial) 5,000 UNIT/ML VIAL 5000 UNIT SC (22:55)
[2018-05-01] MEDS: traZODone 50 MG Tablet PO (22:55)
[2018-05-01] MEDS: Mirtazapine 15 MG Tablet PO (22:55)
[2018-05-01] MEDS: busPIRone 5 MG Tablet 10 MG PO (23:04)
--- NOTE | 2018-05-01 23:49 | NURSING ---
MATT DONNELLY'S NUMBER- [phone]; CELL [phone] PER ED NURSE
[2018-05-02] VITALS (23 sets, daily range): BP systolic 128–163; BP diastolic 78–98; PULSE 93–136; RESP 16–29; TEMP 36.7–37.6; O2SAT 93–99
[2018-05-02] MEDS: traZODone 100 MG Tablet 300 MG PO ×2 (00:10→21:58)
[2018-05-02] MEDS: Gabapentin 300 MG Capsule PO ×4 (00:11→18:16)
[2018-05-02 00:22] LABS: Anion Gap 12 (5-15); BUN 11 mg/dL (7-18); BUN/Creat Ratio 8.3 RATIO (10-20); Calcium,Total 7.6 mg/dL (8.5-10.1); Chloride 93 mmol/L (98-107); Creatinine, Serum 1.33 mg/dL (0.70-1.30); EST Glomerular Filtration Rate 61 mL/min (>60); Est Glom Filt Rate - Afr Amer 74 mL/min (>60); Estimated Creatinine Clearance 69.37 ml/min; Glucose 108 mg/dL (74-106); Potassium 3.8 mmol/L (3.5-5.1); Sodium Level 129 mmol/L (136-145)
[2018-05-02] MEDS: diazePAM 5 MG Tablet PO ×4 (01:50→21:55)
[2018-05-02 05:01] LABS: Absolute Lymphocyte Count 1.56 X10^3/ul (0.83-4.51); Absolute Neutrophil Count 3.8 X10^3/uL (2.0-7.7); Basophil# 0.02 X10^3/uL; Basophil% 0.4 % (0-1); Eosinophil# 0.03 X10^3/uL; Eosinophils% 0.5 % (0-5); Hematocrit 35.4 % (40-54); Hemoglobin 11.1 g/dl (13.0-16.5); Lymphocyte # 1.56 X10^3/ul (4.0); Lymphocyte % 27.4 % (19-41); Mean Corp Hgb Conc 31.4 g/gl (32-36); Mean Corpuscular Hgb 31.5 pg (27.0-32.0); Mean Corpuscular Volume 100.6 fL (80-94); Mean Platelet Vol. 10.3 fl (6.2-12.0); Monocyte# 0.27 X10^3/uL; Monocyte% 4.7 % (0-10); Neutrophil # 3.79 X10^3/uL (2.7-7.7); Neutrophil % 66.6 % (47-70); Platelet Count 112 K/mm3 (150-450); RBC Distribution Width CV 17.3 % (11.6-14.6); RBC Distribution Width SD 62.6 fl (35.1-43.9); Red Blood Count 3.52 M/mm3 (4.6-6.2); White Blood Count 5.7 K/mm3 (4.4-11.0)
[2018-05-02 05:05] LABS: POSITIVE COUNT NO; POSITIVE DIFFERENTIAL NO; POSITIVE MORPHOLOGY NO
[2018-05-02] MEDS: Heparin Injection (Vial) 5,000 UNIT/ML VIAL 5000 UNIT SC ×3 (05:57→21:53)
[2018-05-02] MEDS: 0.9% Normal Saline 1,000 ML 125 ML IV ×2 (05:58→13:40)
[2018-05-02 06:55] LABS: ALB/GLOB Ratio 0.8 RATIO (0.9-2.4); AST(SGOT) 426 U/L (15-37); Alanine Aminotransfer ALT/SGPT 140 U/L (16-61); Albumin, Serum 2.1 g/dL (3.2-5.0); Alkaline Phosphatase 502 U/L (45-117); Anion Gap 11 (5-15); BUN 9 mg/dL (7-18); Calcium,Total 7.5 mg/dL (8.5-10.1); Chloride 97 mmol/L (98-107); Creatinine, Serum 1.29 mg/dL (0.70-1.30); EST Glomerular Filtration Rate 63 mL/min (>60); Est Glom Filt Rate - Afr Amer 76 mL/min (>60); Estimated Creatinine Clearance 71.52 ml/min; Globulin 2.7 g/dL (2.2-4.2); Glucose 108 mg/dL (74-106); Potassium 3.5 mmol/L (3.5-5.1); Protein, Total 4.8 g/dL (6.4-8.2); Sodium Level 134 mmol/L (136-145)
--- NOTE | 2018-05-02 06:58 | CON.PCM_ITS ---
Problem List (1) Jaundice due to hepatitis Status: Acute (2) ETOH abuse Status: Acute (3) Methamphetamine abuse Status: Acute (4) Transaminitis Status: Acute (5) DONTA (acute kidney injury) Status: Acute (6) Hyponatremia Status: Acute Reason for Consult Date of Consultation: 05/02/18 Reason for Consultation: Alcohol withdrawal History of Present Illness: The patient is a 48 year old M, with past medical history listed below, who presented to [facility] on 05/01/2018 secondary to alcohol withdrawal. Patient is a very poor historian, but reports that he drinks anything I can get a hold of. Patient states that he can drink wine, moonshine and vodka generally. Patient has been through withdrawal previously, but has never felt this bad. Patient does report a history of fever and chills subjectively, but is unclear if this is related to alcohol cessation. Patient has been reporting nausea and multiple episodes of emesis. Patient denies any hematemesis, coffee-ground emesis or melena. Patient has had diffuse myalgias and generalized weakness. Patient estimates that he has not eaten in the past 5 days. On presentation to the emergency room, patient was tachycardic at 156 bpm, but saturating well on room air. No fever was noted. Patient was significantly hyponatremic, hypochloremic with an elevated creatinine at 1.44. Total bilirubin was 12.1 with a direct bilirubin of 8.47. Patient was given Zofran, Ativan, Librium and 2 L of normal saline. Patient was then admitted to the intensive care unit for further monitoring of alcohol withdrawal. Patient is not able to provide a reliable review of systems at this time. Past Medical History Allergies amoxicillin Adverse Reaction (Verified 05/01/18 20:01) Upset Stomach Home Medications: Ambulatory Orders Medication Instructions Recorded Fluvoxamine Maleate [Luvox Cr] 100 mg PO BID 10/16/15 Trazodone HCl 300 mg PO QHS PRN 10/16/15 Gabapentin [Neurontin] 300 mg PO TID 05/01/18 Smoking Status: Current some day smoker Tobacco Use: Cigarettes, Chew Alcohol: Heavy Drugs: - - Meth - *Family History Maternal History Items: No pertinent history Review of Systems Unable to obtain accurate/complete ROS d/t: Poor historian, active withdrawal Patient Problems: Active and Suspected Problems ETOH abuse (Acute) Methamphetamine abuse (Acute) Transaminitis (Acute) DONTA (acute kidney injury) (Acute) Hyponatremia (Acute) Jaundice due to hepatitis (Acute) - Physical Exam General: Alert, Cooperative, - - Anxious with no clear answers. Appears older than stated age. Jaundice. HEENT: Atraumatic, PERRLA, EOMI, Normocephalic, - - Scleral injection with icterus Oral: No Gingival or Mucosal Lesions/ Ulcerations, Dry Mucosa Neck: Supple, No JVD, No Nodes, Trachea Midline Lungs: No rhonchi, No wheeze, No rales, Diminished, - - Fair effort. Symmetric expansion. Cardiovascular: Normal S1, Normal S2, No murmurs, No rub noted, No Gallop, Tachycardic Abdomen: Bowel Sounds Present, Soft, Tender - Right upper quadrant without rebound regarding. Extremities: No clubbing, No cyanosis, Capillary Refill Less than 3 Seconds, Edema - Trace Skin: No rashes, No breakdown Musculoskeletal: No Tenderness to Palpation of Joints or Extremities Lymphatic: No Cervical, Supraclavicular, or Inguinal Adenopathy Neurological: Cranial nerves II-XII grossly intact, Neuro grossly intact, - - Some tremor noted. Strength intact. Sensation intact. Spontaneous movement of all extremities. Psych/Mental Status: Anxious, Impulsive, Restless Vital Signs Temp Pulse Resp BP Pulse Ox 36.7 C 107 H 22 H 137/88 H 98 05/02/18 05:55 05/02/18 06:00 05/02/18 06:00 05/02/18 06:00 05/02/18 06:00 Oxygen Delivery Method Room Air Weight: 88.2 kg Body Mass Index (BMI) 28.3 Intake and Output for Last 24 Hours 04/30/18 05/01/18 05/02/18 23:59 23:59 23:59 Intake Total 533 / 533 Output Total 600 / 600 Balance -67 / -67 Laboratory Tests 05/01/18 05/01/18 05/01/18 16:16 16:16 16:16 WBC 7.4 RBC 4.10 L Hgb 13.8 Hct 40.2 MCV 98.0 H MCH 33.7 H MCHC 34.3 RDW 16.7 H RDW Differential 57.8 H Plt Count 150 MPV 10.9 Immature Gran % (Auto) 0.400 Neut % (Auto) 70.1 H Lymph % (Auto) 19.3 [place] % (Auto) 9.9 Eos % (Auto) 0.0 Baso % (Auto) 0.3 Absolute Neuts (auto) 5.2 Absolute Lymphs (auto) 1.43 Total Counted Not Reportable Sodium 124 L Potassium 3.9 Chloride 86 L Carbon Dioxide 23.0 Anion Gap 15 BUN 12 Creatinine 1.44 H Estim Creat Clear Calc 64.07 Est GFR (MDRD) Af Amer 67 Est GFR (MDRD) Non-Af 55 L BUN/Creatinine Ratio 8.3 L Glucose 135 H Calcium 7.9 L Total Bilirubin 12.10 H Direct Bilirubin 8.47 H AST 360 H ALT 141 H Alkaline Phosphatase 604 H Total Protein 5.8 L Albumin 2.4 L Globulin 3.4 Albumin/Globulin Ratio Lipase 197 Urine Opiates Screen Urine Methadone Screen Ur Barbiturates Screen Ur Phencyclidine Scrn Ur Amphetamines Screen U Methamphetamin-MDMA U Benzodiazepines Scrn Urine Cocaine Screen U Cannabinoids Screen Ur Drug Screen Comment Ethyl Alcohol < 3.0 05/01/18 05/01/18 05/02/18 20:00 20:00 04:50 WBC 5.7 RBC 3.52 L Hgb 11.1 L Hct 35.4 L MCV 100.6 H MCH 31.5 MCHC 31.4 L RDW 17.3 H RDW Differential 62.6 H Plt Count 112 L MPV 10.3 Immature Gran % (Auto) 0.400 Neut % (Auto) 66.6 Lymph % (Auto) 27.4 [place] % (Auto) 4.7 Eos % (Auto) 0.5 Baso % (Auto) 0.4 Absolute Neuts (auto) 3.8 Absolute Lymphs (auto) 1.56 Total Counted Not Reportable Sodium 129 L Potassium 3.8 Chloride 93 L Carbon Dioxide 24.0 Anion Gap 12 BUN 11 Creatinine 1.33 H Estim Creat Clear Calc 69.37 Est GFR (MDRD) Af Amer 74 Est GFR (MDRD) Non-Af 61 BUN/Creatinine Ratio 8.3 L Glucose 108 H Calcium 7.6 L Total Bilirubin Direct Bilirubin AST ALT Alkaline Phosphatase Total Protein Albumin Globulin Albumin/Globulin Ratio Lipase Urine Opiates Screen NEGATIVE Urine Methadone Screen NEGATIVE Ur Barbiturates Screen NEGATIVE Ur Phencyclidine Scrn NEGATIVE Ur Amphetamines Screen NEGATIVE U Methamphetamin-MDMA POSITIVE H U Benzodiazepines Scrn NEGATIVE Urine Cocaine Screen NEGATIVE U Cannabinoids Screen NEGATIVE Ur Drug Screen Comment Ethyl Alcohol 05/02/18 04:50 WBC RBC Hgb Hct MCV MCH MCHC RDW RDW Differential Plt Count MPV Immature Gran % (Auto) Neut % (Auto) Lymph % (Auto) [place] % (Auto) Eos % (Auto) Baso % (Auto) Absolute Neuts (auto) Absolute Lymphs (auto) Total Counted Sodium 134 L Potassium 3.5 Chloride 97 L Carbon Dioxide 26.0 Anion Gap 11 BUN 9 Creatinine 1.29 Estim Creat Clear Calc 71.52 Est GFR (MDRD) Af Amer 76 Est GFR (MDRD) Non-Af 63 BUN/Creatinine Ratio 7.0 L Glucose 108 H Calcium 7.5 L Total Bilirubin 11.20 H Direct Bilirubin AST 426 H ALT 140 H Alkaline Phosphatase 502 H Total Protein 4.8 L Albumin 2.1 L Globulin 2.7 Albumin/Globulin Ratio 0.8 L Lipase Urine Opiates Screen Urine Methadone Screen Ur Barbiturates Screen Ur Phencyclidine Scrn Ur Amphetamines Screen U Methamphetamin-MDMA U Benzodiazepines Scrn Urine Cocaine Screen U Cannabinoids Screen Ur Drug Screen Comment Ethyl Alcohol Assessment/Plan Active and Suspected Problems ETOH abuse (Acute) Methamphetamine abuse (Acute) Transaminitis (Acute) DONTA (acute kidney injury) (Acute) Hyponatremia (Acute) Jaundice due to hepatitis (Acute) RECOMMENDATIONS: 1. Continue CIWA protocol, monitor for DTs 2. Aggressive fluid rehydration 3. Monitor for refeeding syndrome 4. Monitor LFTs daily, await hepatitis panel 5. Obtain coagulation studies IMPRESSIONS: 1. Alcohol withdrawal Patient is a very poor historian and unable to provide much information at this time. Patient readily admits to drinking significant amounts, but is unclear if he has ever had seizures or other complications related to alcohol withdrawal in the past. Patient is positive for methamphetamines on tox screen , but really denies this. Patient is currently on the CIWA protocol. Will monitor for 24 hours in the intensive care unit to see if patient's status worsens to the point that he requires Precedex or intubation with propofol. Patient's alcohol level was negative on presentation. Will have to follow for refeeding syndrome. 2. Probable alcoholic hepatitis Patient does report to significant drinking. Patient does report moonshine, so toxicity with methanol or alcoholic hepatitis has to be considered. We will continue with supportive care. Patient's albumin is reduced, but this may be secondary to poor nutritional status. Hepatitis panel is currently pending. Will obtain coagulation studies. 3. Hypovolemic hyponatremia/acute kidney injury Patient is receiving appropriate rehydration. Continue to monitor. Anticipate normalization of sodium, chloride and renal function. Probable prerenal etiology. No indication for renal replacement therapy at this time. 4. Poor historian/methamphetamine use Complicates care, management, recovery and prognosis. Will attempt to touch base with family members at [facility] for additional information. Code Visit Inpatient E&M: 08733 Init Hosp L3
[2018-05-02] MEDS: Thiamine Hydrochloride 100 MG Tablet PO ×2 (08:28→18:17)
[2018-05-02] MEDS: fluvoxaMINE Maleate 50 MG Tablet 100 MG PO ×2 (08:30→21:54)
[2018-05-02] MEDS: Folic Acid 1 MG Tablet PO (08:31)
[2018-05-02] MEDS: Multivitamins,Ther W-Minerals Tablet 1 TABLET PO (08:31)
[2018-05-02 08:37] LABS: International Normalized Ratio 1.2
[2018-05-02 08:38] LABS: Partial Thromboplast Time 36.3 Seconds (24.1-36.2)
--- NOTE | 2018-05-02 14:46 | CASEMGMT ---
SW to follow up with patient on Friday. Linda [employer]
--- NOTE | 2018-05-02 16:34 | PCM.PN.HOSP ---
Patient Problems: Active and Suspected Problems ETOH abuse (Acute) Methamphetamine abuse (Acute) Transaminitis (Acute) DONTA (acute kidney injury) (Acute) Hyponatremia (Acute) Jaundice due to hepatitis (Acute) Subjective: Patient was seen and examined. He complains of generalized body aches. No acute events overnight. Denies any nausea or vomiting or fever or chills. Vitals/I&O's: Vital Signs Temp Pulse Resp BP Pulse Ox 98.1 F 110 H 22 H 137/78 H 95 05/02/18 14:00 05/02/18 14:00 05/02/18 14:00 05/02/18 14:00 05/02/18 10:00 Oxygen Delivery Method Room Air Weight: 88.2 kg Body Mass Index (BMI) 28.3 Intake and Output for Last 24 Hours 04/30/18 05/01/18 05/02/18 23:59 23:59 23:59 Intake Total 533 / 533 Output Total 600 / 600 Balance -67 / -67 General: Alert, Oriented x3, Cooperative, - - a HEENT: Atraumatic, PERRLA, EOMI, Normocephalic, - - Jaundiced Oral: Moist Mucosa Neck: Supple Lungs: Clear to auscultation, Normal air movement Cardiovascular: Regular rate, Regular Rhythm, Normal S1, Normal S2, No murmurs Abdomen: Bowel Sounds Present, Soft, Non Tender, Non-Distended Extremities: No edema Skin: No rashes, No breakdown Musculoskeletal: No Tenderness to Palpation of Joints or Extremities Lymphatic: No Cervical, Supraclavicular, or Inguinal Adenopathy Neurological: Cranial nerves II-XII grossly intact, Neuro grossly intact Psych/Mental Status: Normal Affect, Appropriate Laboratory Results 05/01/18 20:00: Urine Opiates Screen NEGATIVE, Urine Methadone Screen NEGATIVE, Ur Barbiturates Screen NEGATIVE, Ur Phencyclidine Scrn NEGATIVE, Ur Amphetamines Screen NEGATIVE, U Methamphetamin-MDMA POSITIVE H, U Benzodiazepines Scrn NEGATIVE, Urine Cocaine Screen NEGATIVE, U Cannabinoids Screen NEGATIVE, Ur Drug Screen Comment 05/01/18 20:00: Sodium 129 L, Potassium 3.8, Chloride 93 L, Carbon Dioxide 24.0, Anion Gap 12, BUN 11, Creatinine 1.33 H, Estim Creat Clear Calc 69.37, Est GFR (MDRD) Af Amer 74, Est GFR (MDRD) Non-Af 61, BUN/Creatinine Ratio 8.3 L, Glucose 108 H, Calcium 7.6 L 05/02/18 04:50: WBC 5.7, RBC 3.52 L, Hgb 11.1 L, Hct 35.4 L, MCV 100.6 H, MCH 31.5, MCHC 31.4 L, RDW 17.3 H, RDW Differential 62.6 H, Plt Count 112 L, MPV 10.3, Immature Gran % (Auto) 0.400, Neut % (Auto) 66.6, Lymph % (Auto) 27.4, [place] % (Auto) 4.7, Eos % (Auto) 0.5, Baso % (Auto) 0.4, Absolute Neuts (auto) 3.8, Absolute Lymphs (auto) 1.56, Total Counted Not Reportable 05/02/18 04:50: Sodium 134 L, Potassium 3.5, Chloride 97 L, Carbon Dioxide 26.0, Anion Gap 11, BUN 9, Creatinine 1.29, Estim Creat Clear Calc 71.52, Est GFR (MDRD) Af Amer 76, Est GFR (MDRD) Non-Af 63, BUN/Creatinine Ratio 7.0 L, Glucose 108 H, Calcium 7.5 L, Total Bilirubin 11.20 H, AST 426 H, ALT 140 H, Alkaline Phosphatase 502 H, Total Protein 4.8 L, Albumin 2.1 L, Globulin 2.7, Albumin/Globulin Ratio 0.8 L 05/02/18 06:30: Hepatitis A IgM Ab Pending, Hepatitis A Ab Total Pending, Hep Bs Antigen Pending, Hep B Core Total Ab Pending, Hep B Core IgM Ab Pending 05/02/18 08:15: PT 15.0 H, INR 1.2, APTT 36.3 H Current Medications Diazepam (Valium) 10 mg PO Q6H [facility] PRN Reason: Taper Stop: 05/06/18 20:14 Last Admin: 05/02/18 13:46 Dose: 10 mg Diazepam (Valium) 5 mg PO DAILY PRN PRN PRN Reason: Agitation Dicyclomine HCl (Bentyl) 20 mg PO Q6H PRN PRN PRN Reason: abdominal discomfort Fluvoxamine Maleate (Luvox) 100 mg PO BID [facility] Last Admin: 05/02/18 08:30 Dose: 100 mg Folic Acid (Folic Acid) 1 mg PO DAILY@0800 [facility] Stop: 05/04/18 08:01 Last Admin: 05/02/18 08:31 Dose: 1 mg Gabapentin (Neurontin) 300 mg PO TIDCM [facility] Last Admin: 05/02/18 08:29 Dose: 300 mg Heparin Sodium (Porcine) (Heparin Na) 5,000 unit SC Q8 [facility] Last Admin: 05/02/18 13:46 Dose: 5,000 unit Hydroxyzine Pamoate (Vistaril Pamoate Capsule) 50 mg PO Q6H PRN PRN PRN Reason: Mild Anxiety (score 1/3) Sodium Chloride () 1,000 mls @ 125 mls/hr IV .Q8H [facility] Last Admin: 05/02/18 13:40 Dose: 125 mls/hr Lorazepam (Ativan) 2 mg IV Q2H PRN PRN; Protocol PRN Reason: CIWA score > 8 but <15 Lorazepam (Ativan) 2 mg IV UD PRN; Protocol PRN Reason: CIWA score >/=15. Lorazepam (Ativan) 2 mg IV X1 PRN PRN Reason: Seizure Lorazepam (Ativan) 2 mg PO Q2H PRN PRN; Protocol PRN Reason: CIWA score > 8 but <15 Lorazepam (Ativan) 2 mg PO UD PRN; Protocol PRN Reason: CIWA score >/=15. Methocarbamol (Methocarbamol) 750 mg PO Q6H PRN PRN PRN Reason: Muscle Aches Mirtazapine (Remeron) 15 mg PO QHS [facility] Last Admin: 05/01/18 22:55 Dose: 15 mg Multivitamins/Minerals ([facility]) [facility] Admin: 05/02/18 08:31 Dose: 1 tablet Nutritional Formula (Lactose Free) (Ensure Enlive) 120 ml PO 4X/DAY [facility] Last Admin: 05/02/18 13:42 Dose: 120 ml Ondansetron HCl (Zofran Odt) 4 mg PO Q6H PRN PRN PRN Reason: NAUSEA [facility]) [facility] Stop: 05/04/18 17:01 Last Admin: 05/02/18 08:28 Dose: 100 mg Thiamine [facility]itamin B1) [facility] Trazodone HCl (Desyrel) 300 mg PO QHS [facility] Last Admin: 05/02/18 00:10 Dose: 250 mg Medical Necessity - Tobacco Use Smoking Status: Current some day smoker Tobacco Use: Cigarettes, Chew Assessment/Plan All Active Problems ETOH abuse (Acute) Methamphetamine abuse (Acute) Transaminitis (Acute) DONTA (acute kidney injury) (Acute) Hyponatremia (Acute) Jaundice due to hepatitis (Acute) 48-year-old male with past medical history of alcohol dependency comes in with complaints of alcohol withdrawal. 1. Acute alcohol withdrawal, CIWA scores are better, admitting alcohol level is 152, being managed on alcohol withdrawal protocol, thiamine, folic acid, multivitamin 2. Elevated liver enzymes, concerning for alcoholic hepatitis, discriminant factor is 38, will start on prednisone 40mg po daily, will monitor 3. Hyponatremia, hypovolemia, slowly improving, Na is 134, will continue on IVF, will continue to monitor. 4. DONTA on CKD, slowly improving, creatinine today is 1.29 from 1.44 5. Depression, on trazodone 6. DVT PPx- On Heparin SC Code Visit Inpatient E&M: 16633 Init Hosp L3
--- NOTE | 2018-05-02 16:37 | US_ITS ---
STUDY: ABDOMINAL ULTRASOUND - RIGHT UPPER QUADRANT REASON FOR VISIT: Male, 48 years old. Elevated liver enzymes. Jaundice following binge drinking. TECHNIQUE: Ultrasound evaluation of the right upper quadrant was performed with real-time and static peterson-scale imaging. TECHNICAL QUALITY: Adequate. COMPARISON: None. FINDINGS: Liver: The liver is enlarged and measures 19.9 cm. There is increased echogenicity consistent with fatty infiltration. The bile ducts are within normal limits. There is hepatic color flow. The direction of portal flow is hepatopetal. There is no demonstrated mass lesion. Gallbladder: There is a contracted gallbladder. The gallbladder wall measures 4.7 mm. There is a negative sonographic Jarquin's sign. There is no pericholecystic fluid. There are no gallstones. Common Bile Duct (C.B.D.): The common bile duct measures 3.5 mm. Pancreas: Normal size of the head, body and tail of the pancreas. There is increased echogenicity of the pancreas. There is no demonstrated pancreatic mass or cyst. Right Kidney: Normal size of the right kidney. The right kidney measures 10.6 cm x 5.6 x 5.9 cm. Normal renal cortex. The right cortex measures 1.2 cm. There is no demonstrated renal mass or cyst. There is no right hydronephrosis. US/Liver IMPRESSION: Hepatomegaly and fatty infiltration of the liver Contracted gallbladder with thickened wall. Electronically Signed: Perry Mckeon MD at 13:57 EDT Tel [phone], Service support ,
[2018-05-02 17:57] LABS: GGTP 5103 U/L (15-85)
[2018-05-02] MEDS: predniSONE 20 MG Tablet 40 MG PO (18:16)
[2018-05-02] MEDS: Dicyclomine 10 MG Capsule 20 MG PO (21:55)
[2018-05-02] MEDS: Mirtazapine 15 MG Tablet PO ×2 (21:56)
[2018-05-02] MEDS: 0.9% Normal Saline 1,000 ML 100 ML IV (22:33)
[2018-05-03] VITALS (15 sets, daily range): BP systolic 131–154; BP diastolic 74–91; PULSE 68–101; RESP 13–23; TEMP 36.6–37.2; O2SAT 92–98
[2018-05-03] MEDS: diazePAM 5 MG Tablet PO ×4 (01:51→20:34)
[2018-05-03] MEDS: 0.9% NaCl Peripheral Flush Adult/Peds IV (04:57)
[2018-05-03 05:13] LABS: Absolute Lymphocyte Count 0.67 X10^3/ul (0.83-4.51); Absolute Neutrophil Count 5.5 X10^3/uL (2.0-7.7); Basophil# 0.01 X10^3/uL; Basophil% 0.2 % (0-1); Hematocrit 34.3 % (40-54); Hemoglobin 10.8 g/dl (13.0-16.5); Lymphocyte # 0.67 X10^3/ul (4.0); Lymphocyte % 10.3 % (19-41); Mean Corp Hgb Conc 31.5 g/gl (32-36); Mean Corpuscular Hgb 31.9 pg (27.0-32.0); Mean Corpuscular Volume 101.2 fL (80-94); Mean Platelet Vol. 10.9 fl (6.2-12.0); Monocyte# 0.27 X10^3/uL; Monocyte% 4.2 % (0-10); Neutrophil # 5.51 X10^3/uL (2.7-7.7); Neutrophil % 84.7 % (47-70); POSITIVE COUNT NO; POSITIVE DIFFERENTIAL NO; POSITIVE MORPHOLOGY NO; Platelet Count 111 K/mm3 (150-450); RBC Distribution Width CV 17.4 % (11.6-14.6); RBC Distribution Width SD 64.4 fl (35.1-43.9); Red Blood Count 3.39 M/mm3 (4.6-6.2); White Blood Count 6.5 K/mm3 (4.4-11.0)
[2018-05-03] MEDS: Heparin Injection (Vial) 5,000 UNIT/ML VIAL 5000 UNIT SC ×3 (06:30→22:06)
--- NOTE | 2018-05-03 06:39 | PCM.PN.INT ---
Subjective: Patient did well overnight. No acute issues were reported. Patient has received minimal Ativan therapy. Patient tolerating room air without complications. Patient denies any bleeding complications such as coffee ground emesis, melena or hematochezia. General: Alert, Oriented x3, Cooperative, No apparent distress, - - Jaundice appears improved HEENT: Atraumatic, PERRLA, EOMI, Normocephalic, - - Significant scleral injection Oral: Moist Mucosa, No Gingival or Mucosal Lesions/ Ulcerations Neck: Supple, No JVD, No Nodes, Trachea Midline Lungs: No rhonchi, No wheeze, No rales, Diminished, - - Symmetric expansion. Poor effort. Cardiovascular: Normal S1, Normal S2, No murmurs, No rub noted, No Gallop, Tachycardic Abdomen: Bowel Sounds Present, Soft, Distended - Slightly, Tender - Right upper quadrant without guarding or rebound Extremities: No clubbing, No cyanosis, Capillary Refill Less than 3 Seconds, Edema Skin: - - No significant change compared to previous Musculoskeletal: No Tenderness to Palpation of Joints or Extremities Lymphatic: No Cervical, Supraclavicular, or Inguinal Adenopathy Neurological: Cranial nerves II-XII grossly intact, Neuro grossly intact, Motor Exam 5/5 strength throughout Psych/Mental Status: Alert and oriented to time, place, person, mood and affect Vital Signs Temp Pulse Resp BP Pulse Ox 36.7 C 86 23 H 142/84 H 93 05/03/18 04:00 05/03/18 04:00 05/03/18 04:00 05/03/18 04:00 05/03/18 04:00 Oxygen Delivery Method Room Air Weight: 88.2 kg Body Mass Index (BMI) 28.3 Intake and Output for Last 24 Hours 05/01/18 05/02/18 05/03/18 23:59 23:59 23:59 Intake Total 3169 / 3169 1016 / 1016 Output Total 1550 / 1550 3150 / 3150 Balance 1619 / 1619 -2134 / -2134 Labs (Last 48 Hours) 05/01/18 05/01/18 05/02/18 20:00 20:00 04:50 WBC 5.7 RBC 3.52 L Hgb 11.1 L Hct 35.4 L MCV 100.6 H MCH 31.5 MCHC 31.4 L RDW 17.3 H RDW Differential 62.6 H Plt Count 112 L MPV 10.3 Immature Gran % (Auto) 0.400 Neut % (Auto) 66.6 Lymph % (Auto) 27.4 [place] % (Auto) 4.7 Eos % (Auto) 0.5 Baso % (Auto) 0.4 Absolute Neuts (auto) 3.8 Absolute Lymphs (auto) 1.56 Total Counted Not Reportable PT INR APTT Sodium 129 L Potassium 3.8 Chloride 93 L Carbon Dioxide 24.0 Anion Gap 12 BUN 11 Creatinine 1.33 H Estim Creat Clear Calc 69.37 Est GFR (MDRD) Af Amer 74 Est GFR (MDRD) Non-Af 61 BUN/Creatinine Ratio 8.3 L Glucose 108 H Calcium 7.6 L Phosphorus Magnesium Total Bilirubin GGT AST ALT Alkaline Phosphatase Ammonia Total Protein Albumin Globulin Albumin/Globulin Ratio Urine Opiates Screen NEGATIVE Urine Methadone Screen NEGATIVE Ur Barbiturates Screen NEGATIVE Ur Phencyclidine Scrn NEGATIVE Ur Amphetamines Screen NEGATIVE U Methamphetamin-MDMA POSITIVE H U Benzodiazepines Scrn NEGATIVE Urine Cocaine Screen NEGATIVE U Cannabinoids Screen NEGATIVE Ur Drug Screen Comment Hepatitis A IgM Ab Hepatitis A Ab Total Hep Bs Antigen Hep B Core Total Ab Hep B Core IgM Ab 05/02/18 05/02/18 05/02/18 04:50 04:50 06:30 WBC RBC Hgb Hct MCV MCH MCHC RDW RDW Differential Plt Count MPV Immature Gran % (Auto) Neut % (Auto) Lymph % (Auto) [place] % (Auto) Eos % (Auto) Baso % (Auto) Absolute Neuts (auto) Absolute Lymphs (auto) Total Counted PT INR APTT Sodium 134 L Potassium 3.5 Chloride 97 L Carbon Dioxide 26.0 Anion Gap 11 BUN 9 Creatinine 1.29 Estim Creat Clear Calc 71.52 Est GFR (MDRD) Af Amer 76 Est GFR (MDRD) Non-Af 63 BUN/Creatinine Ratio 7.0 L Glucose 108 H Calcium 7.5 L Phosphorus Magnesium Total Bilirubin 11.20 H GGT 5103 H AST 426 H ALT 140 H Alkaline Phosphatase 502 H Ammonia Total Protein 4.8 L Albumin 2.1 L Globulin 2.7 Albumin/Globulin Ratio 0.8 L Urine Opiates Screen Urine Methadone Screen Ur Barbiturates Screen Ur Phencyclidine Scrn Ur Amphetamines Screen U Methamphetamin-MDMA U Benzodiazepines Scrn Urine Cocaine Screen U Cannabinoids Screen Ur Drug Screen Comment Hepatitis A IgM Ab Pending Hepatitis A Ab Total Pending Hep Bs Antigen Pending Hep B Core Total Ab Pending Hep B Core IgM Ab Pending 05/02/18 05/02/18 05/03/18 08:15 17:50 05:00 WBC 6.5 RBC 3.39 L Hgb 10.8 L Hct 34.3 L MCV 101.2 H MCH 31.9 MCHC 31.5 L RDW 17.4 H RDW Differential 64.4 H Plt Count 111 L MPV 10.9 Immature Gran % (Auto) 0.600 Neut % (Auto) 84.7 H Lymph % (Auto) 10.3 L [place] % (Auto) 4.2 Eos % (Auto) 0.0 Baso % (Auto) 0.2 Absolute Neuts (auto) 5.5 Absolute Lymphs (auto) 0.67 L Total Counted Not Reportable PT 15.0 H INR 1.2 APTT 36.3 H Sodium Potassium Chloride Carbon Dioxide Anion Gap BUN Creatinine Estim Creat Clear Calc Est GFR (MDRD) Af Amer Est GFR (MDRD) Non-Af BUN/Creatinine Ratio Glucose Calcium Phosphorus Magnesium Total Bilirubin GGT AST ALT Alkaline Phosphatase Ammonia 76.0 H Total Protein Albumin Globulin Albumin/Globulin Ratio Urine Opiates Screen Urine Methadone Screen Ur Barbiturates Screen Ur Phencyclidine Scrn Ur Amphetamines Screen U Methamphetamin-MDMA U Benzodiazepines Scrn Urine Cocaine Screen U Cannabinoids Screen Ur Drug Screen Comment Hepatitis A IgM Ab Hepatitis A Ab Total Hep Bs Antigen Hep B Core Total Ab Hep B Core IgM Ab 05/03/18 05:00 WBC RBC Hgb Hct MCV MCH MCHC RDW RDW Differential Plt Count MPV Immature Gran % (Auto) Neut % (Auto) Lymph % (Auto) [place] % (Auto) Eos % (Auto) Baso % (Auto) Absolute Neuts (auto) Absolute Lymphs (auto) Total Counted PT INR APTT Sodium Pending Potassium Pending Chloride Pending Carbon Dioxide Pending Anion Gap Pending BUN Pending Creatinine Pending Estim Creat Clear Calc Est GFR (MDRD) Af Amer Pending Est GFR (MDRD) Non-Af Pending BUN/Creatinine Ratio Pending Glucose Pending Calcium Pending Phosphorus Pending Magnesium Pending Total Bilirubin Pending GGT AST Pending ALT Pending Alkaline Phosphatase Pending Ammonia Total Protein Pending Albumin Pending Globulin Albumin/Globulin Ratio Urine Opiates Screen Urine Methadone Screen Ur Barbiturates Screen Ur Phencyclidine Scrn Ur Amphetamines Screen U Methamphetamin-MDMA U Benzodiazepines Scrn Urine Cocaine Screen U Cannabinoids Screen Ur Drug Screen Comment Hepatitis A IgM Ab Hepatitis A Ab Total Hep Bs Antigen Hep B Core Total Ab Hep B Core IgM Ab Medical Necessity - Tobacco Use Smoking Status: Current some day smoker Tobacco Use: Cigarettes, Chew Assessment/Plan All Active Problems ETOH abuse (Acute) Methamphetamine abuse (Acute) Transaminitis (Acute) DONTA (acute kidney injury) (Acute) Hyponatremia (Acute) Jaundice due to hepatitis (Acute) RECOMMENDATIONS: 1. Continue CIWA protocol, monitor for DTs 2. Aggressive fluid rehydration 3. Monitor for refeeding syndrome, electrolyte repletion as indicated 4. Monitor LFTs daily, await hepatitis panel 5. Hemodynamically stable on room air. Will sign off from a critical care perspective IMPRESSIONS: 1. Alcohol withdrawal Patient is a very poor historian and unable to provide much information at this time. Patient readily admits to drinking significant amounts, but is unclear if he has ever had seizures or other complications related to alcohol withdrawal in the past. Patient is positive for methamphetamines on tox screen, but really denies this. Patient is currently on the CIWA protocol. Patient with minimal Ativan requirements overnight. Continues to protect his airway. Patient's ammonia is elevated, but he is alert and oriented, so lactulose is likely not indicated. 2. Probable alcoholic hepatitis Patient does report to significant drinking. Patient does report moonshine, so toxicity with methanol or alcoholic hepatitis has to be considered. Patient does have significant scleral injection and this may indicate an acute viral hepatitis. This testing is currently pending. We will continue with supportive care. Patient's albumin is reduced, but this may be secondary to poor nutritional status. 3. Hypovolemic hyponatremia/acute kidney injury Patient is receiving appropriate rehydration. Continue to monitor. Anticipate normalization of sodium, chloride and renal function. Probable prerenal etiology. No indication for renal replacement therapy at this time. 4. Poor historian/methamphetamine use Complicates care, management, recovery and prognosis. Will attempt to touch base with family members at [facility] for additional information. Code Visit Inpatient E&M: 10096 Subs Hosp L2
[2018-05-03] MEDS: Folic Acid 1 MG Tablet PO (07:41)
[2018-05-03] MEDS: predniSONE 20 MG Tablet 40 MG PO (07:42)
[2018-05-03] MEDS: Thiamine Hydrochloride 100 MG Tablet PO ×2 (07:42→17:00)
[2018-05-03] MEDS: Multivitamins,Ther W-Minerals Tablet 1 TABLET PO (07:42)
[2018-05-03] MEDS: Gabapentin 300 MG Capsule PO ×3 (07:42→16:59)
[2018-05-03] MEDS: fluvoxaMINE Maleate 50 MG Tablet 100 MG PO ×2 (07:43→22:06)
[2018-05-03 08:00] LABS: ALB/GLOB Ratio 0.7 RATIO (0.9-2.4); AST(SGOT) 342 U/L (15-37); Alanine Aminotransfer ALT/SGPT 123 U/L (16-61); Albumin, Serum 2.1 g/dL (3.2-5.0); Alkaline Phosphatase 534 U/L (45-117); Anion Gap 9 (5-15); BUN 6 mg/dL (7-18); BUN/Creat Ratio 5.9 RATIO (10-20); Calcium,Total 7.4 mg/dL (8.5-10.1); Chloride 101 mmol/L (98-107); Creatinine, Serum 1.01 mg/dL (0.70-1.30); EST Glomerular Filtration Rate 83 mL/min (>60); Est Glom Filt Rate - Afr Amer 101 mL/min (>60); Estimated Creatinine Clearance 91.35 ml/min; Globulin 2.9 g/dL (2.2-4.2); Glucose 146 mg/dL (74-106); Magnesium 2.1 mg/dL (1.6-2.6); Phosphorus 1.6 mg/dL (2.5-4.9); Potassium 3.4 mmol/L (3.5-5.1); Sodium Level 138 mmol/L (136-145)
--- NOTE | 2018-05-03 08:30 | PCM.PN.HOSP ---
Patient Problems: Active and Suspected Problems ETOH abuse (Acute) Methamphetamine abuse (Acute) Transaminitis (Acute) DONTA (acute kidney injury) (Acute) Hyponatremia (Acute) Jaundice due to hepatitis (Acute) Subjective: Patient was seen and examined. No acute events overnight. Has remained stable. Objective: Physical exam: General: Alert, Oriented x3, Cooperative, ill-looking HEENT: Atraumatic, PERRLA, EOMI, Normocephalic, - - Jaundiced Oral: Moist Mucosa Neck: Supple Lungs: Clear to auscultation, Normal air movement Cardiovascular: Regular rate, Regular Rhythm, Normal S1, Normal S2, No murmurs Abdomen: Bowel Sounds Present, Soft, Non Tender, Non-Distended Extremities: No edema Skin: No rashes, No breakdown Musculoskeletal: No Tenderness to Palpation of Joints or Extremities Lymphatic: No Cervical, Supraclavicular, or Inguinal Adenopathy Neurological: Cranial nerves II-XII grossly intact, Neuro grossly intact Psych/Mental Status: Normal Affect, Appropriate Vitals/I&O's: Vital Signs Temp Pulse Resp BP Pulse Ox 98.5 F 85 23 H 131/75 H 92 05/03/18 07:35 05/03/18 07:35 05/03/18 07:35 05/03/18 07:35 05/03/18 07:35 Oxygen Delivery Method Room Air Weight: 89.3 kg Body Mass Index (BMI) 28.3 Intake and Output for Last 24 Hours 05/01/18 05/02/18 05/03/18 23:59 23:59 23:59 Intake Total 3169 / 3169 1723 / 1723 Output Total 1550 / 1550 4250 / 4250 Balance 1619 / 1619 -2527 / -2527 Laboratory Results 05/02/18 04:50: GGT 5103 H 05/02/18 08:15: PT 15.0 H, INR 1.2, APTT 36.3 H 05/02/18 17:50: Ammonia 76.0 H 05/03/18 05:00: WBC 6.5, RBC 3.39 L, Hgb 10.8 L, Hct 34.3 L, MCV 101.2 H, MCH 31.9, MCHC 31.5 L, RDW 17.4 H, RDW Differential 64.4 H, Plt Count 111 L, MPV 10.9, Immature Gran % (Auto) 0.600, Neut % (Auto) 84.7 H, Lymph % (Auto) 10.3 L, Bureau % (Auto) 4.2, Eos % (Auto) 0.0, Baso % (Auto) 0.2, Absolute Neuts (auto) 5.5, Absolute Lymphs (auto) 0.67 L, Total Counted Not Reportable 05/03/18 05:00: Sodium 138, Potassium 3.4 L, Chloride 101, Carbon Dioxide 28.0, Anion Gap 9, BUN 6 L, Creatinine 1.01, Estim Creat Clear Calc 91.35, Est GFR (MDRD) Af Amer 101, Est GFR (MDRD) Non-Af 83, BUN/Creatinine Ratio 5.9 L, Glucose 146 H, Calcium 7.4 L, Phosphorus 1.6 L, Magnesium 2.1, Total Bilirubin 12.70 H, AST 342 H, ALT 123 H, Alkaline Phosphatase 534 H, Total Protein 5.0 L, Albumin 2.1 L, Globulin 2.9, Albumin/Globulin Ratio 0.7 L Current Medications Diazepam (Valium) 5 mg PO Q6H [facility] PRN Reason: Taper Stop: 05/06/18 20:14 Last Admin: 05/03/18 07:53 Dose: 5 mg Diazepam (Valium) 5 mg PO DAILY PRN PRN PRN Reason: Agitation Dicyclomine HCl (Bentyl) 20 mg PO Q6H PRN PRN PRN Reason: abdominal discomfort Last Admin: 05/02/18 21:55 Dose: 20 mg Fluvoxamine Maleate (Luvox) 100 mg PO BID [facility] Last Admin: 05/03/18 07:43 Dose: 100 mg Folic Acid (Folic Acid) 1 mg PO DAILY@0800 [facility] Stop: 05/04/18 08:01 Last Admin: 05/03/18 07:41 Dose: 1 mg Gabapentin (Neurontin) 300 mg PO TIDCM [facility] Last Admin: 05/03/18 07:42 Dose: 300 mg Heparin Sodium (Porcine) (Heparin Na) 5,000 unit SC Q8 [facility] Last Admin: 05/03/18 06:30 Dose: 5,000 unit Hydroxyzine Pamoate (Vistaril Pamoate Capsule) 50 mg PO Q6H PRN PRN PRN Reason: Mild Anxiety (score 1/3) Sodium Chloride () 1,000 mls @ 100 mls/hr IV .Q10H [facility] Last Admin: 05/02/18 22:33 Dose: 100 mls/hr Lactulose (Chronulac, Cephulac) 20 gm PO BID [facility] Lorazepam (Ativan) 2 mg IV Q2H PRN PRN; Protocol PRN Reason: CIWA score > 8 but <15 Lorazepam (Ativan) 2 mg IV UD PRN; Protocol PRN Reason: CIWA score >/=15. Lorazepam (Ativan) 2 mg IV X1 PRN PRN Reason: Seizure Lorazepam (Ativan) 2 mg PO Q2H PRN PRN; Protocol PRN Reason: CIWA score > 8 but <15 Lorazepam (Ativan) 2 mg PO UD PRN; Protocol PRN Reason: CIWA score >/=15. Methocarbamol (Methocarbamol) 750 mg PO Q6H PRN PRN PRN Reason: Muscle Aches [facility] Last Admin: 05/02/18 22:06 Dose: Not Given Multivitamins/Minerals ([facility]ivitamin With Minerals) [facility] Last Admin: 05/03/18 07:42 Dose: 1 tablet Nutritional Formula (Lactose Free) (Ensure Enlive) 120 ml PO 4X/DAY [facility] Last Admin: 05/02/18 21:55 Dose: 120 ml Ondansetron HCl (Zofran Odt) 4 mg PO Q6H PRN PRN PRN Reason: NAUSEA Prednisone () 40 mg PO DAILY@0800 [facility] Last Admin: 05/03/18 07:42 Dose: 40 mg Thiamine HCl ([facility]itamin B1) [facility] Stop: 05/04/18 17:01 Last Admin: 05/03/18 07:42 Dose: 100 mg Thiamine HCl (Vitamin B1) [facility] Trazodone [facility] ([facility]yrel) [facility] Last Admin: 05/02/18 21:58 Dose: 300 mg Medical Necessity - Tobacco Use Smoking Status: Current some day smoker Tobacco Use: Cigarettes, Chew Assessment/Plan All Active Problems ETOH abuse (Acute) Methamphetamine abuse (Acute) Transaminitis (Acute) DONTA (acute kidney injury) (Acute) Hyponatremia (Acute) Jaundice due to hepatitis (Acute) 48-year-old male with past medical history of alcohol dependency comes in with complains of alcohol withdrawal. 1. Acute alcohol withdrawal, slowly improving, admitting alcohol level is 152, on alcohol withdrawal protocol, continue on thiamine, folic acid, multivitamin. 2. Elevated liver enzymes, concerning for alcoholic hepatitis, discriminant factor is 38, started on prednisone 40mg po daily, will continue to monitor. 3. Hyponatremia, hypovolemia, secondary to dehydration, resolved. 4. DONTA on CKD, resolved, will continue to trend blood work. 5. Depression, on trazodone 6. DVT PPx- On Heparin SC Code Visit Inpatient E&M: 79173 Subs Hosp L2
[2018-05-03] MEDS: 0.9% Normal Saline 1,000 ML 100 ML IV (11:20)
[2018-05-03] MEDS: Lactulose 20 GM/30 ML UDC PO ×2 (11:21→22:05)
--- NOTE | 2018-05-03 12:05 | NURSING ---
to MS [phone] per , element burner in attendance
[2018-05-03 12:06] LABS: HEPATITIS B SURFACE AG Negative (Negative); Hepatitis A AB, Total Positive (Negative); Hepatitis A IgM Antibody Negative (Negative); Hepatitis B Core AB IgM Negative (Negative); Hepatitis B Core Ab Total Negative (Negative); Hepatitis C Ab 0.1 s/co ratio (0.0-0.9)
[2018-05-03] MEDS: Na Biphos/Potassium Phosphate PACKET 1 PACKET PO ×3 (13:28→22:07)
[2018-05-03 13:32] LABS: Hep B Surface Antibodies Non Reactive (.)
[2018-05-03] MEDS: 0.9% Normal Saline 1,000 ML 75 ML IV (17:03)
[2018-05-03] MEDS: hydrOXYzine PAM 25 MG Capsule 50 MG PO (22:05)
[2018-05-03] MEDS: Pantoprazole Sodium 40 MG Tablet PO (22:05)
[2018-05-04] VITALS (16 sets, daily range): BP systolic 131–143; BP diastolic 76–90; PULSE 89–108; RESP 16–18; TEMP 36.8–38; O2SAT 94–96
--- NOTE | 2018-05-04 01:03 | NURSING ---
IV to left AC dc'd d/t constantly alarming because of positional location. Restarted IV in left hand.
[2018-05-04] MEDS: diazePAM 5 MG Tablet PO ×4 (01:27→21:30)
[2018-05-04] MEDS: traZODone 100 MG Tablet 300 MG PO (01:27)
[2018-05-04] MEDS: Heparin Injection (Vial) 5,000 UNIT/ML VIAL 5000 UNIT SC ×3 (05:16→21:31)
[2018-05-04 06:21] LABS: ALB/GLOB Ratio 0.7 RATIO (0.9-2.4); AST(SGOT) 246 U/L (15-37); Alanine Aminotransfer ALT/SGPT 115 U/L (16-61); Alkaline Phosphatase 555 U/L (45-117); Anion Gap 9 (5-15); BUN 8 mg/dL (7-18); BUN/Creat Ratio 8.4 RATIO (10-20); Calcium,Total 7.7 mg/dL (8.5-10.1); Chloride 99 mmol/L (98-107); Creatinine, Serum 0.95 mg/dL (0.70-1.30); EST Glomerular Filtration Rate 90 mL/min (>60); Est Glom Filt Rate - Afr Amer 109 mL/min (>60); Estimated Creatinine Clearance 97.12 ml/min; Globulin 2.9 g/dL (2.2-4.2); Glucose 82 mg/dL (74-106); Phosphorus 1.4 mg/dL (2.5-4.9); Potassium 3.5 mmol/L (3.5-5.1); Protein, Total 4.9 g/dL (6.4-8.2); Sodium Level 137 mmol/L (136-145)
[2018-05-04 06:31] LABS: Hematocrit 33.8 % (40-54); Hemoglobin 10.8 g/dl (13.0-16.5); Mean Corpuscular Hgb 32.8 pg (27.0-32.0); Mean Corpuscular Volume 102.7 fL (80-94); Mean Platelet Vol. 9.9 fl (6.2-12.0); Platelet Count 113 K/mm3 (150-450); RBC Distribution Width SD 64.5 fl (35.1-43.9); Red Blood Count 3.29 M/mm3 (4.6-6.2); White Blood Count 12.9 K/mm3 (4.4-11.0)
[2018-05-04 06:54] LABS: Differential Indicated MANUAL DIFF; POSITIVE COUNT YES; POSITIVE DIFFERENTIAL NO; POSITIVE MORPHOLOGY YES
[2018-05-04 07:19] LABS: Lymphocyte 22 % (19-41); Metamyelocyte 2 % (0-1); Monocyte 6 % (0-10); Neutrophil-Segmented 70 % (47-70); Total Cells Counted 100 (MANUAL DIFF)
[2018-05-04 07:20] LABS: Absolute Lymphocyte Count 2.84 X10^3/ul (0.83-4.51); Lymphocyte # 2.84 X10^3/ul (4.0); Neutrophil # 9.03 X10^3/uL (2.7-7.7); Platelet Estimate ADEQUATE (ADEQ); Red Cell Morphology NORM C+C NORMAL (NORM C&C)
[2018-05-04] MEDS: Folic Acid 1 MG Tablet PO (10:28)
[2018-05-04] MEDS: Gabapentin 300 MG Capsule PO ×3 (10:29→16:50)
[2018-05-04] MEDS: Multivitamins,Ther W-Minerals Tablet 1 TABLET PO (10:29)
[2018-05-04] MEDS: Thiamine Hydrochloride 100 MG Tablet PO ×2 (10:30→16:50)
[2018-05-04] MEDS: predniSONE 20 MG Tablet 40 MG PO (10:30)
[2018-05-04] MEDS: Pantoprazole Sodium 40 MG Tablet PO (10:31)
[2018-05-04] MEDS: Na Biphos/Potassium Phosphate PACKET 1 PACKET PO (10:31)
[2018-05-04] MEDS: Lactulose 20 GM/30 ML UDC PO ×2 (10:31→21:31)
[2018-05-04] MEDS: fluvoxaMINE Maleate 50 MG Tablet 100 MG PO ×2 (10:31→21:31)
[2018-05-04 14:02] LABS: Pathologist Review Reviewed
--- NOTE | 2018-05-04 15:13 | CASEMGMT ---
Social Work Note SW attempted to meet with pt as pt is listed as Self-Pay and is at [facility] for ETOH withdrawal. Pt soundly sleeping and SW attempted twice to wake pt without success. SW provided pt with HCAP application, [facility], [facility], [facility] clinic, prescription assistance, Medicaid Application, and counseling resources. Per PFS notes, pt doesn't qualify for Medicaid. Per H+P, pt has history of being in multiple rehabs for alcohol/drug use. SW available should needs arise. Lynn Orellana [employer] EDUCATION [employer] PROFESSIONAL, [employer]VEST WORKER
[2018-05-04] MEDS: Mirtazapine 15 MG Tablet PO (21:31)
--- NOTE | 2018-05-04 23:02 | NURSING ---
Fany RN, pt's nurse, had to leave the floor with another pt to go to CT scan. Checked with this pt to see if he wanted his Trazodone yet. He states he is watching TV and doesn't want it yet & will let us know. Visitor present in room.
[2018-05-05] VITALS (15 sets, daily range): BP systolic 117–143; BP diastolic 66–93; PULSE 85–109; RESP 16–18; TEMP 36.6–37.5; O2SAT 93–97
[2018-05-05] MEDS: traZODone 100 MG Tablet 300 MG PO (01:31)
--- NOTE | 2018-05-05 01:32 | NURSING ---
Patient requesting trazodone now.
[2018-05-05] MEDS: Heparin Injection (Vial) 5,000 UNIT/ML VIAL 5000 UNIT SC ×3 (06:08→22:11)
[2018-05-05 06:44] LABS: Phosphorus 1.8 mg/dL (2.5-4.9)
[2018-05-05 07:03] LABS: Hematocrit 35.9 % (40-54); Hemoglobin 11.1 g/dl (13.0-16.5); Mean Corp Hgb Conc 30.9 g/gl (32-36); Mean Corpuscular Hgb 31.6 pg (27.0-32.0); Mean Corpuscular Volume 102.3 fL (80-94); Mean Platelet Vol. 10.2 fl (6.2-12.0); Platelet Count 128 K/mm3 (150-450); RBC Distribution Width CV 18.9 % (11.6-14.6); RBC Distribution Width SD 69.8 fl (35.1-43.9); Red Blood Count 3.51 M/mm3 (4.6-6.2); White Blood Count 13.3 K/mm3 (4.4-11.0)
[2018-05-05 07:06] LABS: Differential Indicated MANUAL DIFF; POSITIVE COUNT YES; POSITIVE DIFFERENTIAL NO; POSITIVE MORPHOLOGY YES
[2018-05-05 07:31] LABS: Absolute Nucleated RBC Count 0.73 10^3/uL (0-5); NRBC Flagged by Analyzer 5.5 % (0-5)
[2018-05-05 07:34] LABS: Anisocytosis 1+; Hypochromasia 1+; Lymphocyte 23 % (19-41); Metamyelocyte 1 % (0-1); Microcytosis 1+; Monocyte 10 % (0-10); Myelocyte 3 (0-0); Neutrophil-Band 3 % (0-5); Neutrophil-Segmented 60 % (47-70); Polychromasia 1+; Total Cells Counted 100 (MANUAL DIFF)
[2018-05-05 07:35] LABS: Platelet Estimate SLT DEC (ADEQ)
[2018-05-05 07:36] LABS: Absolute Neutrophil Count 8.4 X10^3/uL (2.0-7.7)
[2018-05-05 07:37] LABS: Absolute Lymphocyte Count 3.06 X10^3/ul (0.83-4.51)
[2018-05-05] MEDS: Gabapentin 300 MG Capsule PO ×3 (08:48→17:55)
[2018-05-05] MEDS: predniSONE 20 MG Tablet 40 MG PO (08:48)
[2018-05-05] MEDS: Multivitamins,Ther W-Minerals Tablet 1 TABLET PO (08:49)
[2018-05-05] MEDS: Thiamine Hydrochloride 100 MG Tablet PO (08:50)
[2018-05-05] MEDS: diazePAM 5 MG Tablet PO ×2 (08:53→20:35)
[2018-05-05] MEDS: Methocarbamol 750 MG Tablet PO ×2 (08:55→18:00)
[2018-05-05] MEDS: fluvoxaMINE Maleate 50 MG Tablet 100 MG PO ×2 (11:11→22:11)
[2018-05-05] MEDS: Lactulose 20 GM/30 ML UDC PO ×2 (11:11→22:11)
[2018-05-05] MEDS: Pantoprazole Sodium 40 MG Tablet PO (11:12)
--- NOTE | 2018-05-05 11:12 | PCM.PN.HOSP ---
Patient Problems: Active and Suspected Problems ETOH abuse (Acute) Methamphetamine abuse (Acute) Transaminitis (Acute) DONTA (acute kidney injury) (Acute) Hyponatremia (Acute) Jaundice due to hepatitis (Acute) Subjective: Still feels anxious and shaky with some nausea Vitals/I&O's: Vital Signs Temp Pulse Resp BP Pulse Ox 99.1 F 108 H 18 132/72 H 93 05/05/18 08:43 05/05/18 08:43 05/05/18 08:43 05/05/18 08:43 05/05/18 08:43 Oxygen Delivery Method Room Air Weight: 196 lb 5 oz Body Mass Index (BMI) 28.3 Intake and Output for Last 24 Hours 05/03/18 05/04/18 05/05/18 23:59 23:59 23:59 Intake Total 3956 / 3956 2963 / 2963 400 / 400 Output Total 4250 / 4250 Balance -294 / -294 2963 / 2963 400 / 400 General: Alert, Cooperative, - - tremulous HEENT: Atraumatic, EOMI, Normocephalic, - - scleral icterus Oral: Dry Mucosa Neck: Supple, No JVD Lungs: Clear to auscultation, Normal air movement, No rhonchi, No wheeze, No rales Cardiovascular: Regular rate, Regular Rhythm, Normal S1, Normal S2, No murmurs Abdomen: Soft, Non Tender, Non-Distended, No Hepato-splenomegaly Skin: - - Jaundiced Neurological: Neuro grossly intact, Sensory exam intact to light touch and pain Psych/Mental Status: Normal Affect, Appropriate Laboratory Results 05/04/18 05:42: Diff Path Review Reviewed 05/05/18 06:04: WBC 13.3 H, RBC 3.51 L, Hgb 11.1 L, Hct 35.9 L, MCV 102.3 H, MCH 31.6, MCHC 30.9 L, RDW 18.9 H, RDW Differential 69.8 H, Plt Count 128 L, MPV 10.2, Neut % (Auto) Not Reportable, Absolute Neuts (auto) 8.4 H, Absolute Lymphs (auto) 3.06, Total Counted 100, Neutrophils % (Manual) 60, Band Neutrophils % 3, Lymphocytes % (Manual) 23, Monocytes % (Manual) 10, Metamyelocytes % 1, Myelocytes % 3 H, Nucleated RBC % 5.5 H, Diff Path Review May foll, Platelet Estimate SLT DEC, Polychromasia 1+, Hypochromasia 1+, Anisocytosis 1+, Microcytosis 1+, Absolute Retic 0.73 05/05/18 06:04: Ammonia 114.0 H 05/05/18 06:04: Phosphorus 1.8 L Current Medications Diazepam (Valium) 5 mg PO Q12H [facility] PRN Reason: Taper Stop: 05/06/18 20:14 Last Admin: 05/05/18 08:53 Dose: 5 mg Diazepam (Valium) 5 mg PO DAILY PRN PRN PRN Reason: Agitation Dicyclomine HCl (Bentyl) 20 mg PO Q6H PRN PRN PRN Reason: abdominal discomfort Last Admin: 05/02/18 21:55 Dose: 20 mg Fluvoxamine Maleate (Luvox) 100 mg PO BID [facility] Last Admin: 05/05/18 11:11 Dose: 100 mg Gabapentin (Neurontin) 300 mg PO TIDCM [facility] Last Admin: 05/05/18 11:12 Dose: 300 mg Heparin Sodium (Porcine) (Heparin Na) 5,000 unit SC Q8 [facility] Last Admin: 05/05/18 06:08 Dose: 5,000 unit Hydroxyzine Pamoate (Vistaril Pamoate Capsule) 50 mg PO Q6H PRN PRN PRN Reason: Mild Anxiety (score 1/3) Last Admin: 05/03/18 22:05 Dose: 50 mg Lactulose (Chronulac, Cephulac) 20 gm PO BID [facility] Last Admin: 05/05/18 11:11 Dose: 20 gm Lorazepam (Ativan) 2 mg IV Q2H PRN PRN; Protocol PRN Reason: CIWA score > 8 but <15 Lorazepam (Ativan) 2 mg IV UD PRN; Protocol PRN Reason: CIWA score >/=15. Lorazepam (Ativan) 2 mg IV X1 PRN PRN Reason: Seizure Lorazepam (Ativan) 2 mg PO Q2H PRN PRN; Protocol PRN Reason: CIWA score > 8 but <15 Lorazepam (Ativan) 2 mg PO UD PRN; Protocol PRN Reason: CIWA score >/=15. Methocarbamol (Methocarbamol) 750 mg PO Q6H PRN PRN PRN Reason: Muscle Aches Last Admin: 05/05/18 08:55 Dose: 750 mg Mirtazapine (Remeron) 15 mg PO QHS [facility] Last Admin: 05/04/18 21:31 Dose: 15 mg Multivitamins/Minerals ([facility]) [facility] Last Admin: 05/05/18 08:49 Dose: 1 tablet Nutritional Formula (Lactose Free) (Ensure Enlive) 120 ml PO 4X/DAY [facility] Last Admin: 05/05/18 11:11 Dose: 120 ml Ondansetron HCl (Zofran Odt) 4 mg PO Q6H PRN PRN PRN Reason: NAUSEA Pantoprazole Sodium (Protonix) 40 mg PO DAILY [facility] Last Admin: 05/05/18 11:12 Dose: 40 mg Prednisone () 40 mg PO DAILY@0800 [facility] Last Admin: 05/05/18 08:48 Dose: 40 mg Thiamine HCl (Vitamin B1) [facility] Last Admin: 05/05/18 08:50 Dose: 100 mg Trazodone HCl (Desyrel) 300 mg PO QHS [facility] Last Admin: 05/05/18 01:31 Dose: 300 mg Medical Necessity - Tobacco Use Smoking Status: Current some day smoker Tobacco Use: Cigarettes, Chew Assessment/Plan All Active Problems ETOH abuse (Acute) Methamphetamine abuse (Acute) Transaminitis (Acute) DONTA (acute kidney injury) (Acute) Hyponatremia (Acute) Jaundice due to hepatitis (Acute) 1. Acute alcohol withdrawal/Leukocytosis - CMP pending today with replace phos depending on Na and K levels - His discriminant factor was 38 for his alcoholic hepatits, will trend - C/w his prednisone, leukocytosis related to the steroids - c/w thiamine, folic acid - valium scheduled and PRN, may need to add librium - has gone to rehab previously without success - Ammonia is rising, will stop trending unless he is encephalopathic 2. Depression - on trazodone, may need further medications if he continues to drink DVT: Heparin Diet: regular Code Visit Inpatient E&M: 93569 Subs Hosp L2
--- NOTE | 2018-05-05 11:18 | PN_ITS ---
Patient Problems: Active and Suspected Problems ETOH abuse (Acute) Methamphetamine abuse (Acute) Transaminitis (Acute) DONTA (acute kidney injury) (Acute) Hyponatremia (Acute) Jaundice due to hepatitis (Acute) Subjective: Still feels anxious and shaky with some nausea Vitals/I&O's: Vital Signs Temp Pulse Resp BP Pulse Ox 99.1 F 108 H 18 132/72 H 93 05/05/18 08:43 05/05/18 08:43 05/05/18 08:43 05/05/18 08:43 05/05/18 08:43 Oxygen Delivery Method Room Air Weight: 196 lb 5 oz Body Mass Index (BMI) 28.3 Intake and Output for Last 24 Hours 05/03/18 05/04/18 05/05/18 23:59 23:59 23:59 Intake Total 3956 / 3956 2963 / 2963 400 / 400 Output Total 4250 / 4250 Balance -294 / -294 2963 / 2963 400 / 400 General: Alert, Cooperative, - - tremulous HEENT: Atraumatic, EOMI, Normocephalic, - - scleral icterus Oral: Dry Mucosa Neck: Supple, No JVD Lungs: Clear to auscultation, Normal air movement, No rhonchi, No wheeze, No rales Cardiovascular: Regular rate, Regular Rhythm, Normal S1, Normal S2, No murmurs Abdomen: Soft, Non Tender, Non-Distended, No Hepato-splenomegaly Skin: - - Jaundiced Neurological: Neuro grossly intact, Sensory exam intact to light touch and pain Psych/Mental Status: Normal Affect, Appropriate Laboratory Results 05/04/18 05:42: Diff Path Review Reviewed 05/05/18 06:04: WBC 13.3 H, RBC 3.51 L, Hgb 11.1 L, Hct 35.9 L, MCV 102.3 H, MCH 31.6, MCHC 30.9 L, RDW 18.9 H, RDW Differential 69.8 H, Plt Count 128 L, MPV 10.2, Neut % (Auto) Not Reportable, Absolute Neuts (auto) 8.4 H, Absolute Lymphs (auto) 3.06, Total Counted 100, Neutrophils % (Manual) 60, Band Neutrophils % 3, Lymphocytes % (Manual) 23, Monocytes % (Manual) 10, Metamyelocytes % 1, Myelocytes % 3 H, Nucleated RBC % 5.5 H, Diff Path Review May foll, Platelet Estimate SLT DEC, Polychromasia 1+, Hypochromasia 1+, Anisocytosis 1+, Microcytosis 1+, Absolute Retic 0.73 05/05/18 06:04: Ammonia 114.0 H 05/05/18 06:04: Phosphorus 1.8 L Current Medications Diazepam (Valium) 5 mg PO Q12H [facility] PRN Reason: Taper Stop: 05/06/18 20:14 Last Admin: 05/05/18 08:53 Dose: 5 mg Diazepam (Valium) 5 mg PO DAILY PRN PRN PRN Reason: Agitation Dicyclomine HCl (Bentyl) 20 mg PO Q6H PRN PRN PRN Reason: abdominal discomfort Last Admin: 05/02/18 21:55 Dose: 20 mg Fluvoxamine Maleate (Luvox) 100 mg PO BID [facility] Last Admin: 05/05/18 11:11 Dose: 100 mg Gabapentin (Neurontin) 300 mg PO TIDCM [facility] Last Admin: 05/05/18 11:12 Dose: 300 mg Heparin Sodium (Porcine) (Heparin Na) 5,000 unit SC Q8 [facility] Last Admin: 05/05/18 06:08 Dose: 5,000 unit Hydroxyzine Pamoate (Vistaril Pamoate Capsule) 50 mg PO Q6H PRN PRN PRN Reason: Mild Anxiety (score 1/3) Last Admin: 05/03/18 22:05 Dose: 50 mg Lactulose (Chronulac, Cephulac) 20 gm PO BID [facility] Last Admin: 05/05/18 11:11 Dose: 20 gm Lorazepam (Ativan) 2 mg IV Q2H PRN PRN; Protocol PRN Reason: CIWA score > 8 but <15 Lorazepam (Ativan) 2 mg IV UD PRN; Protocol PRN Reason: CIWA score >/=15. Lorazepam (Ativan) 2 mg IV X1 PRN PRN Reason: Seizure Lorazepam (Ativan) 2 mg PO Q2H PRN PRN; Protocol PRN Reason: CIWA score > 8 but <15 Lorazepam (Ativan) 2 mg PO UD PRN; Protocol PRN Reason: CIWA score >/=15. Methocarbamol (Methocarbamol) 750 mg PO Q6H PRN PRN PRN Reason: Muscle Aches Last Admin: 05/05/18 08:55 Dose: 750 mg Mirtazapine (Remeron) 15 mg PO QHS [facility] Last Admin: 05/04/18 21:31 Dose: 15 mg Multivitamins/Minerals ([facility]amin [facility]) [facility] Last Admin: 05/05/18 08:49 Dose: 1 tablet Nutritional Formula (Lactose Free) (Ensure Enlive) 120 ml PO 4X/DAY [facility] Last Admin: 05/05/18 11:11 Dose: 120 ml Ondansetron HCl (Zofran Odt) 4 mg PO Q6H PRN PRN PRN Reason: NAUSEA Pantoprazole Sodium (Protonix) 40 mg PO DAILY [facility] Last Admin: 05/05/18 11:12 Dose: 40 mg Prednisone () 40 mg PO DAILY@0800 [facility] Last Admin: 05/05/18 08:48 Dose: 40 mg Thiamine HCl ([facility]itamin B1) [facility] Last Admin: 05/05/18 08:50 Dose: 100 mg Trazodone HCl (Desyrel) 300 mg PO QHS [facility] Last Admin: 05/05/18 01:31 Dose: 300 mg Medical Necessity - Tobacco Use Smoking Status: Current some day smoker Tobacco Use: Cigarettes, Chew Assessment/Plan All Active Problems ETOH abuse (Acute) Methamphetamine abuse (Acute) Transaminitis (Acute) DONTA (acute kidney injury) (Acute) Hyponatremia (Acute) Jaundice due to hepatitis (Acute) 1. Acute alcohol withdrawal/Leukocytosis - CMP pending today with replace phos depending on Na and K levels - His discriminant factor was 38 for his alcoholic hepatits, will trend - C/w his prednisone, leukocytosis related to the steroids - c/w thiamine, folic acid - valium scheduled and PRN, may need to add librium - has gone to rehab previously without success - Ammonia is rising, will stop trending unless he is encephalopathic 2. Depression - on trazodone, may need further medications if he continues to drink DVT: Heparin Diet: regular Code Visit Inpatient E&M: 94383 Subs Hosp L2
--- NOTE | 2018-05-05 12:27 | CASEMGMT ---
Social Work Assessment Referral Date: 05/05/2018 Date of Assessment: 05/05/2018 Reason for consult: Self Pay, Substance Abuse Hx Informant: SW Personal Status SW met with pt to complete initial assessment. SW introduced self and role at [facility]. Pt is alert and orientated x4. Pt states that he lives alone and was previously independent with ADLs. Pt states that his step-father and step-mother and girlfriend are good supports for him. Pt states that he currently doesn't have any insurance as he lost his job about a month ago due to alcohol use and lack of attendance at work. Pt states he hasn't ever filled out a Medicaid application before but was willing to take application. Pt states that his step mom should be in today and should be able to help him fill out Medicaid Application. SW educated pt on [employer] application and his step mother should be able to assist pt with filling out HCAP application too. Pt states understanding. Pt states that his plan is to return home at discharge. Substance Abuse Hx: Pt states that he first started drinking alcohol when he was a little kid. Pt states that he will drink constantly and that his last time drinking was Friday morning before coming into [facility]. Pt states that he has been in and out of rehab facilities with the most recent being a month ago at [facility] [place]. Pt states that his family would like him to get back into rehab. Pt states that it would probably be a good idea in regards to getting back into rehab. Pt states that he doesn't want to go back to [facility] [place] but is willing to take list of rehab facilities in [place]. SW provided pt with list of rehab facilities in [place] and information on [facility]. SW provided pt with list of rehab facilities in [place]. SW provided support to pt and utilized active listening skills during conversation with pt. Plan: Pt to discharge home when medically cleared. Pt was provided self pay resources (see previous social work note), counseling services and rehab facility resources. Lynn Orellana REPEATER OPERATOR, HAND CANDY DIPPER
[2018-05-05 12:38] LABS: ALB/GLOB Ratio 0.6 RATIO (0.9-2.4); AST(SGOT) 243 U/L (15-37); Alanine Aminotransfer ALT/SGPT 125 U/L (16-61); Albumin, Serum 2.1 g/dL (3.2-5.0); Alkaline Phosphatase 614 U/L (45-117); Anion Gap 14 (5-15); BUN 10 mg/dL (7-18); Calcium,Total 8.2 mg/dL (8.5-10.1); Chloride 94 mmol/L (98-107); EST Glomerular Filtration Rate 84 mL/min (>60); Est Glom Filt Rate - Afr Amer 102 mL/min (>60); Estimated Creatinine Clearance 92.26 ml/min; Globulin 3.3 g/dL (2.2-4.2); Glucose 88 mg/dL (74-106); Potassium 3.6 mmol/L (3.5-5.1); Protein, Total 5.4 g/dL (6.4-8.2); Sodium Level 135 mmol/L (136-145)
[2018-05-05] MEDS: hydrOXYzine PAM 25 MG Capsule 50 MG PO (13:36)
--- NOTE | 2018-05-05 14:38 | CHAPLAIN ---
Type of Pastoral Visit _x__ Initial Visit ___ Follow-up Visit ___ On-call Visit ___ General Patient Visit ___ Spiritual Assessment ___ Family Conference ___ Bereavement ___ Rapid Response ___ Code Blue ___ Other (describe below) Pastoral Care Referral From _x__ Patient ___ Family ___ Nurse ___ Physician ___ Clarity Developer ___ Electrical Calibrator ___ Other (describe below) Sacrament/Intervention _x__ Active listening ___ Anointing ___ Confucianist ___ Bereavement ___ Communion ___ Radha exploration ___ ___ Life review _x__ Prayer ___ Reconciliation ___ Sacrament of Sick _x__ Supportive presence ___ Wedding ___ Other (describe below) Pastoral Comments entered room where RN, mother, and mother's aide were also in room; pt said that I am a little groggy; mother asked if she needed to leave the room and this veterinary physiologist responded no; pt was forth right in saying I was on a one month binge and came here on Friday and I have had an alcohol issue since early twenties; pt offered opportunity to talk and receive spiritual support; pt said that would be fine but maybe better later; mother asked for time to speak to son since she was limited an availability to see him; offered to return later
[2018-05-05] MEDS: Mirtazapine 15 MG Tablet PO (22:11)
[2018-05-06] VITALS (15 sets, daily range): BP systolic 116–142; BP diastolic 67–84; PULSE 89–109; RESP 16–18; TEMP 36.7–37.3; O2SAT 95–98
[2018-05-06] MEDS: traZODone 100 MG Tablet 300 MG PO (00:13)
[2018-05-06] MEDS: Heparin Injection (Vial) 5,000 UNIT/ML VIAL 5000 UNIT SC ×3 (05:16→22:06)
[2018-05-06 06:52] LABS: ALB/GLOB Ratio 0.6 RATIO (0.9-2.4); AST(SGOT) 238 U/L (15-37); Alanine Aminotransfer ALT/SGPT 139 U/L (16-61); Albumin, Serum 2.2 g/dL (3.2-5.0); Alkaline Phosphatase 655 U/L (45-117); Anion Gap 13 (5-15); BUN 12 mg/dL (7-18); BUN/Creat Ratio 11.1 RATIO (10-20); Calcium,Total 8.2 mg/dL (8.5-10.1); Chloride 94 mmol/L (98-107); Creatinine, Serum 1.08 mg/dL (0.70-1.30); EST Glomerular Filtration Rate 77 mL/min (>60); Est Glom Filt Rate - Afr Amer 93 mL/min (>60); Estimated Creatinine Clearance 85.43 ml/min; Globulin 3.5 g/dL (2.2-4.2); Glucose 107 mg/dL (74-106); Potassium 3.2 mmol/L (3.5-5.1); Protein, Total 5.7 g/dL (6.4-8.2); Sodium Level 133 mmol/L (136-145)
[2018-05-06] MEDS: predniSONE 20 MG Tablet 40 MG PO (08:16)
[2018-05-06] MEDS: Gabapentin 300 MG Capsule PO ×3 (08:16→17:22)
[2018-05-06] MEDS: Multivitamins,Ther W-Minerals Tablet 1 TABLET PO (08:16)
[2018-05-06] MEDS: Methocarbamol 750 MG Tablet PO (08:16)
[2018-05-06] MEDS: Thiamine Hydrochloride 100 MG Tablet PO (08:17)
[2018-05-06] MEDS: fluvoxaMINE Maleate 50 MG Tablet 100 MG PO ×2 (10:55→22:07)
[2018-05-06] MEDS: Lactulose 20 GM/30 ML UDC PO (10:55)
[2018-05-06] MEDS: Pantoprazole Sodium 40 MG Tablet PO (10:58)
[2018-05-06] MEDS: cloNIDine HCl 0.1 MG Tablet 0.2 MG PO (13:08)
[2018-05-06] MEDS: chlordiazePOXIDE 25 MG Capsule 50 MG PO ×2 (13:11→22:06)
--- NOTE | 2018-05-06 17:10 | CHAPLAIN ---
Type of Pastoral Visit ___ Initial Visit _x__ Follow-up Visit ___ On-call Visit ___ General Patient Visit ___ Spiritual Assessment ___ Family Conference ___ Bereavement ___ Rapid Response ___ Code Blue ___ Other (describe below) Pastoral Care Referral From _x__ Patient ___ Family ___ Nurse ___ Physician ___ Roof Slater ___ Patient Portal Concierge ___ Other (describe below) Sacrament/Intervention _x__ Active listening ___ Anointing ___ Protestant ___ Bereavement ___ Communion _x__ Rahda exploration ___ _x__ Life review _x__ Prayer ___ Reconciliation ___ Sacrament of Sick _x__ Supportive presence ___ Wedding ___ Other (describe below) Pastoral Comments patient says he is feeling some better today; pt says he is very concerned about his health now that he learned about liver damage; pt says he has had alcohol issues since teens but always thought I could handle it; pt reports having had sobriety periods and has had in-patient treatment and AA experience; pt says that he would prefer a Spiritism focus rehab but even then is unsure about effectiveness or willingness; pt speaks of shame and disappointment in self; pt admits to inability to cope well during recent job loss and previously the of his father; pt says he has restorationist background in Buddhist and [employer] churches but has not attended hinduism for many years; pt says that he believes God is with him but he does not feel close to God; pt welcomes prayer and asks for help to stay sober; at end of conversation pt reveals that he has OCD and asks about a previous meeting today with the notary and how he poked a hole in the paper; pt continued to ask if everything is good with him and states that I did not hurt her and she said I didn't hurt her; this field sales manager responded that everything is good with you as far as I know; this field sales manager went to talk with SW about this case; SW has seen pt and will return to see him tomorrow; SW states that she can look into a Spiritism rehab possibility and that will probably also do an evaluation tomorrow
[2018-05-06] MEDS: Na Biphos/Potassium Phosphate PACKET 1 PACKET PO ×2 (17:20→22:07)
--- NOTE | 2018-05-06 17:32 | PCM.PN.HOSP ---
Patient Problems: Active and Suspected Problems ETOH abuse (Acute) Methamphetamine abuse (Acute) Transaminitis (Acute) DONTA (acute kidney injury) (Acute) Hyponatremia (Acute) Jaundice due to hepatitis (Acute) Subjective: f/u for acute alcoholic hepatitis Patient seen and examined Feels unwell. States he feels sick Vitals/I&O's: Vital Signs Temp Pulse Resp BP Pulse Ox 98.1 F 94 18 136/80 H 98 05/06/18 14:08 05/06/18 16:38 05/06/18 14:08 05/06/18 14:08 05/06/18 14:06 Oxygen Delivery Method Room Air Weight: 89.046 kg Body Mass Index (BMI) 28.3 Intake and Output for Last 24 Hours 05/04/18 05/05/18 05/06/18 23:59 23:59 23:59 Intake Total 2963 / 2963 2250 / 2250 1400 / 1400 Output Total 1000 / 1000 1100 / 1100 Balance 2963 / 2963 1250 / 1250 300 / 300 General: Oriented x3, Cooperative, Lethargic, - - acutely and chronically ill looking, jaundice 3+++ HEENT: Atraumatic, - - jaundice Oral: Moist Mucosa Neck: Supple Abdomen: Obese, - - MWR Skin: - - jaundice Neurological: Cranial nerves II-XII grossly intact, Neuro grossly intact Psych/Mental Status: Depressed, Alert and oriented to time, place, person, mood and affect Laboratory Results 05/06/18 06:08: Sodium 133 L, Potassium 3.2 L, Chloride 94 L, Carbon Dioxide 26.0, Anion Gap 13, BUN 12, Creatinine 1.08, Estim Creat Clear Calc 85.43, Est GFR (MDRD) Af Amer 93, Est GFR (MDRD) Non-Af 77, BUN/Creatinine Ratio 11.1, Glucose 107 H, Calcium 8.2 L, Total Bilirubin 11.00 H, AST 238 H, ALT 139 H, Alkaline Phosphatase 655 H, Total Protein 5.7 L, Albumin 2.2 L, Globulin 3.5, Albumin/Globulin Ratio 0.6 L Current Medications Chlordiazepoxide (Librium) 50 mg PO TID [facility] Last Admin: 05/06/18 13:11 Dose: 50 mg Diazepam (Valium) 5 mg PO Q24H [facility] PRN Reason: Taper Stop: 05/06/18 20:14 Last Admin: 05/05/18 20:35 Dose: 5 mg Dicyclomine HCl (Bentyl) 20 mg PO Q6H PRN PRN PRN Reason: abdominal discomfort Last Admin: 05/02/18 21:55 Dose: 20 mg Fluvoxamine Maleate (Luvox) 100 mg PO BID [facility] Last Admin: 05/06/18 10:55 Dose: 100 mg Gabapentin (Neurontin) 300 mg PO TIDCM [facility] Last Admin: 05/06/18 17:22 Dose: 300 mg Heparin Sodium (Porcine) (Heparin Na) 5,000 unit SC Q8 [facility] Last Admin: 05/06/18 13:09 Dose: 5,000 unit Thiamine HCl 200 mg/ Sodium (Chloride) 52 mls @ 200 mls/hr IV DAILY [facility] Stop: 05/11/18 10:16 Lorazepam (Ativan) 2 mg IV Q2H PRN PRN; Protocol PRN Reason: CIWA score > 8 but <15 Lorazepam (Ativan) 2 mg IV UD PRN; Protocol PRN Reason: CIWA score >/=15. Lorazepam (Ativan) 2 mg IV X1 PRN PRN Reason: Seizure Lorazepam (Ativan) 2 mg PO Q2H PRN PRN; Protocol PRN Reason: CIWA score > 8 but <15 Lorazepam (Ativan) 2 mg PO UD PRN; Protocol PRN Reason: CIWA score >/=15. Mirtazapine (Remeron) 30 mg PO QHS [facility] Multivitamins/Minerals (Multivitamin With Minerals) [facility] Last Admin: 05/06/18 08:16 Dose: 1 tablet Nutritional Formula (Lactose Free) (Ensure Enlive) 120 ml PO 4X/DAY [facility] Last Admin: 05/06/18 17:26 Dose: 120 ml Ondansetron HCl (Zofran Odt) 4 mg PO Q6H PRN PRN PRN Reason: NAUSEA Potassium Chloride (K-Dur) 40 meq PO DAILYCM [facility] Stop: 05/08/18 08:01 Last Admin: 05/06/18 14:05 Dose: 40 meq Potassium Phos/Sodium Phos (Neutra-Phos Packet) 1 packet PO TID [facility] Stop: 05/08/18 06:01 Last Admin: 05/06/18 17:20 Dose: 1 packet Prednisolone Sodium Phosphate (Prelone Oral Solution (15 Mg/Ml)) 40 mg PO DAILY@0800 [facility] Trazodone HCl (Desyrel) 300 mg PO QHS [facility] Last Admin: 05/06/18 00:13 Dose: 300 mg Medical Necessity - Tobacco Use Smoking Status: Current some day smoker Tobacco Use: Cigarettes, Chew Assessment/Plan All Active Problems ETOH abuse (Acute) Methamphetamine abuse (Acute) Transaminitis (Acute) DONTA (acute kidney injury) (Acute) Hyponatremia (Acute) Jaundice due to hepatitis (Acute) 1. Acute alcoholic hepatitis in a patient who continues to drink. On prednisone. Will change to prednisolone Continue other supportive care 2. Alcohol withdrawal. On CIWA protocol. Stable 3. HTN. has tachycardia as well. may be secondary to alcohol excess or to withdrawal. Will start on Clonidine 4. Depression. Likely reason for continued etoh abuse. Will need to look into this further 5. Hypokalemia. Secondary to alcohol abuse. Will replete 6. Hypophosphatemia. Will replete as well. 7. Alcohol abuse. Will start on high dose thiamine to stave off Wernicke's encephalopathy in this patient who is definitely at risk Code Visit Inpatient E&M: 61875 Subs Hosp L3
--- NOTE | 2018-05-06 17:39 | PN_ITS ---
Patient Problems: Active and Suspected Problems ETOH abuse (Acute) Methamphetamine abuse (Acute) Transaminitis (Acute) DONTA (acute kidney injury) (Acute) Hyponatremia (Acute) Jaundice due to hepatitis (Acute) Subjective: f/u for acute alcoholic hepatitis Patient seen and examined Feels unwell. States he feels sick Vitals/I&O's: Vital Signs Temp Pulse Resp BP Pulse Ox 98.1 F 94 18 136/80 H 98 05/06/18 14:08 05/06/18 16:38 05/06/18 14:08 05/06/18 14:08 05/06/18 14:06 Oxygen Delivery Method Room Air Weight: 89.046 kg Body Mass Index (BMI) 28.3 Intake and Output for Last 24 Hours 05/04/18 05/05/18 05/06/18 23:59 23:59 23:59 Intake Total 2963 / 2963 2250 / 2250 1400 / 1400 Output Total 1000 / 1000 1100 / 1100 Balance 2963 / 2963 1250 / 1250 300 / 300 General: Oriented x3, Cooperative, Lethargic, - - acutely and chronically ill looking, jaundice 3+++ HEENT: Atraumatic, - - jaundice Oral: Moist Mucosa Neck: Supple Abdomen: Obese, - - MWR Skin: - - jaundice Neurological: Cranial nerves II-XII grossly intact, Neuro grossly intact Psych/Mental Status: Depressed, Alert and oriented to time, place, person, mood and affect Laboratory Results 05/06/18 06:08: Sodium 133 L, Potassium 3.2 L, Chloride 94 L, Carbon Dioxide 26.0, Anion Gap 13, BUN 12, Creatinine 1.08, Estim Creat Clear Calc 85.43, Est GFR (MDRD) Af Amer 93, Est GFR (MDRD) Non-Af 77, BUN/Creatinine Ratio 11.1, Glucose 107 H, Calcium 8.2 L, Total Bilirubin 11.00 H, AST 238 H, ALT 139 H, Alkaline Phosphatase 655 H, Total Protein 5.7 L, Albumin 2.2 L, Globulin 3.5, Albumin/Globulin Ratio 0.6 L Current Medications Chlordiazepoxide (Librium) 50 mg PO TID [facility] Last Admin: 05/06/18 13:11 Dose: 50 mg Diazepam (Valium) 5 mg PO Q24H [facility] PRN Reason: Taper Stop: 05/06/18 20:14 Last Admin: 05/05/18 20:35 Dose: 5 mg Dicyclomine HCl (Bentyl) 20 mg PO Q6H PRN PRN PRN Reason: abdominal discomfort Last Admin: 05/02/18 21:55 Dose: 20 mg Fluvoxamine Maleate (Luvox) 100 mg PO BID [facility] Last Admin: 05/06/18 10:55 Dose: 100 mg Gabapentin (Neurontin) 300 mg PO TIDCM [facility] Last Admin: 05/06/18 17:22 Dose: 300 mg Heparin Sodium (Porcine) (Heparin Na) 5,000 unit SC Q8 [facility] Last Admin: 05/06/18 13:09 Dose: 5,000 unit Thiamine HCl 200 mg/ Sodium (Chloride) 52 mls @ 200 mls/hr IV DAILY [facility] Stop: 05/11/18 10:16 Lorazepam (Ativan) 2 mg IV Q2H PRN PRN; Protocol PRN Reason: CIWA score > 8 but <15 Lorazepam (Ativan) 2 mg IV UD PRN; Protocol PRN Reason: CIWA score >/=15. Lorazepam (Ativan) 2 mg IV X1 PRN PRN Reason: Seizure Lorazepam (Ativan) 2 mg PO Q2H PRN PRN; Protocol PRN Reason: CIWA score > 8 but <15 Lorazepam (Ativan) 2 mg PO UD PRN; Protocol PRN Reason: CIWA score >/=15. Mirtazapine (Remeron) 30 mg PO QHS [facility] Multivitamins/Minerals (Multivitamin With Minerals) [facility] Last Admin: 05/06/18 08:16 Dose: 1 tablet Nutritional Formula (Lactose Free) (Ensure Enlive) 120 ml PO 4X/DAY [facility] Last Admin: 05/06/18 17:26 Dose: 120 ml Ondansetron HCl (Zofran Odt) 4 mg PO Q6H PRN PRN PRN Reason: NAUSEA Potassium Chloride (K-Dur) 40 meq PO DAILYCM [facility] Stop: 05/08/18 08:01 Last Admin: 05/06/18 14:05 Dose: 40 meq Potassium Phos/Sodium Phos (Neutra-Phos Packet) 1 packet PO TID [facility] Stop: 05/08/18 06:01 Last Admin: 05/06/18 17:20 Dose: 1 packet Prednisolone Sodium Phosphate (Prelone Oral Solution (15 Mg/Ml)) 40 mg PO DAILY @0800 [facility] Trazodone HCl (Desyrel) 300 mg PO QHS [facility] Last Admin: 05/06/18 00:13 Dose: 300 mg Medical Necessity - Tobacco Use Smoking Status: Current some day smoker Tobacco Use: Cigarettes, Chew Assessment/Plan All Active Problems ETOH abuse (Acute) Methamphetamine abuse (Acute) Transaminitis (Acute) DONTA (acute kidney injury) (Acute) Hyponatremia (Acute) Jaundice due to hepatitis (Acute) 1. Acute alcoholic hepatitis in a patient who continues to drink. On prednisone. Will change to prednisolone Continue other supportive care 2. Alcohol withdrawal. On CIWA protocol. Stable 3. HTN. has tachycardia as well. may be secondary to alcohol excess or to withdrawal. Will start on Clonidine 4. Depression. Likely reason for continued etoh abuse. Will need to look into this further 5. Hypokalemia. Secondary to alcohol abuse. Will replete 6. Hypophosphatemia. Will replete as well. 7. Alcohol abuse. Will start on high dose thiamine to stave off Wernicke's encephalopathy in this patient who is definitely at risk Code Visit Inpatient E&M: 13663 Subs Hosp L3
[2018-05-06] MEDS: Mirtazapine 30 MG Tablet PO (22:11)
[2018-05-06] MEDS: LORazepam 1 MG Tablet 2 MG PO (22:19)
[2018-05-07] VITALS (11 sets, daily range): BP systolic 117–122; BP diastolic 68–76; PULSE 86–99; RESP 16–18; TEMP 36.6–37.1; O2SAT 92–100
[2018-05-07] MEDS: traZODone 100 MG Tablet 300 MG PO (00:04)
[2018-05-07] MEDS: Heparin Injection (Vial) 5,000 UNIT/ML VIAL 5000 UNIT SC ×3 (06:02→21:01)
[2018-05-07] MEDS: chlordiazePOXIDE 25 MG Capsule 50 MG PO ×3 (06:02→21:00)
[2018-05-07] MEDS: Na Biphos/Potassium Phosphate PACKET 1 PACKET PO ×3 (06:02→21:01)
[2018-05-07] MEDS: Multivitamins,Ther W-Minerals Tablet 1 TABLET PO (10:37)
[2018-05-07] MEDS: Gabapentin 300 MG Capsule PO ×3 (10:37→18:13)
[2018-05-07] MEDS: fluvoxaMINE Maleate 50 MG Tablet 100 MG PO ×2 (10:38→21:01)
--- NOTE | 2018-05-07 13:36 | CHAPLAIN ---
Type of Pastoral Visit ___ Initial Visit _x__ Follow-up Visit ___ On-call Visit ___ General Patient Visit ___ Spiritual Assessment ___ Family Conference ___ Bereavement ___ Rapid Response ___ Code Blue ___ Other (describe below) Pastoral Care Referral From _x__ Patient ___ Family ___ Nurse ___ Physician ___ Passenger Car Inspector ___ Customer Account Administrator ___ Other (describe below) Sacrament/Intervention _x__ Active listening ___ Anointing ___ Pentecostal ___ Bereavement ___ Communion ___ Radha exploration ___ ___ Life review ___ Prayer ___ Reconciliation ___ Sacrament of Sick ___ Supportive presence ___ Wedding ___ Other (describe below) Pastoral Comments returned to patient to give him information about a [facility]; he had requested this information; [employer] member was leaving room when I entered; pt was asking [employer] employee if she had seen anything and referring to his hospital gown; pt was appropriately covered; [employer] employee assured pt that she had not seen anything; pt asked me if [employer] employee told me that she has not seen anything; this biztalk architect assured pt that he was fully covered and that indeed [employer] employee had answered that she did not see anything; pt seemed satisfied with the answer; gave pt the information and asked how pt was doing today; pt said that he was having some anxiety; brief discussion between us about what pt does for peace and calm; pt said that he likes watching sports; two of us talked about what was on [employer]
[2018-05-07 14:13] LABS: Pathologist Review Reviewed
--- NOTE | 2018-05-07 16:03 | PCM.PN.HOSP ---
Patient Problems: Active and Suspected Problems ETOH abuse (Acute) Methamphetamine abuse (Acute) Transaminitis (Acute) DONTA (acute kidney injury) (Acute) Hyponatremia (Acute) Jaundice due to hepatitis (Acute) Subjective: f/u for alcoholic hepatitis patient seen and examined Displaying some personality changes, some cognitive impairment Vitals/I&O's: Vital Signs Temp Pulse Resp BP Pulse Ox 98.1 F 92 18 117/68 93 05/07/18 10:00 05/07/18 14:00 05/07/18 10:00 05/07/18 10:00 05/07/18 10:00 Oxygen Delivery Method Room Air Weight: 89.046 kg Body Mass Index (BMI) 28.3 Intake and Output for Last 24 Hours 05/05/18 05/06/18 05/07/18 23:59 23:59 23:59 Intake Total 2250 / 2250 2850 / 2850 120 / 120 Output Total 1000 / 1000 1650 / 1650 Balance 1250 / 1250 1200 / 1200 120 / 120 General: Lethargic, - - ill looking and depressed looking as well HEENT: Atraumatic Oral: Moist Mucosa Neck: Supple Lungs: Clear to auscultation, Normal air movement Cardiovascular: Regular rate Abdomen: - - tenderness in the epigastrium Skin: No rashes Psych/Mental Status: Delusions, Flat Affect, Depressed, Irrational Behavior Laboratory Results 05/05/18 06:04: Diff Path Review Reviewed Current Medications Chlordiazepoxide (Librium) 50 mg PO TID [facility] Last Admin: 05/07/18 15:42 Dose: 50 mg Dicyclomine HCl (Bentyl) 20 mg PO Q6H PRN PRN PRN Reason: abdominal discomfort Last Admin: 05/02/18 21:55 Dose: 20 mg Fluvoxamine Maleate (Luvox) 100 mg PO BID [facility] Last Admin: 05/07/18 10:38 Dose: 100 mg Gabapentin (Neurontin) 300 mg PO TIDCM [facility] Last Admin: 05/07/18 13:00 Dose: 300 mg Heparin Sodium (Porcine) (Heparin Na) 5,000 unit SC Q8 [facility] Last Admin: 05/07/18 15:42 Dose: 5,000 unit Thiamine HCl 200 mg/ Sodium (Chloride) 52 mls @ 200 mls/hr IV DAILY [facility] Stop: 05/11/18 10:16 Last Admin: 05/07/18 12:20 Dose: 200 mls/hr Lorazepam (Ativan) 2 mg IV Q2H PRN PRN; Protocol PRN Reason: CIWA score > 8 but <15 Lorazepam (Ativan) 2 mg IV UD PRN; Protocol PRN Reason: CIWA score >/=15. Lorazepam (Ativan) 2 mg IV X1 PRN PRN Reason: Seizure Lorazepam (Ativan) 2 mg PO Q2H PRN PRN; Protocol PRN Reason: CIWA score > 8 but <15 Last Admin: 05/06/18 22:19 Dose: 2 mg Lorazepam (Ativan) 2 mg PO UD PRN; Protocol PRN Reason: CIWA score >/=15. Mirtazapine (Remeron) 30 mg PO QHS [facility] Last Admin: 05/06/18 22:11 Dose: 30 mg Multivitamins/Minerals (Multivitamin With Minerals) [facility] Last Admin: 05/07/18 10:37 Dose: 1 tablet Nutritional Formula (Lactose Free) (Ensure Enlive) 120 ml PO 4X/DAY [facility] Last Admin: 05/07/18 15:42 Dose: Not Given Ondansetron HCl (Zofran Odt) 4 mg PO Q6H PRN PRN PRN Reason: NAUSEA Potassium Chloride (K-Dur) 40 meq [facility] Stop: 05/08/18 08:01 Last Admin: 05/07/18 10:36 Dose: 40 meq Potassium Phos/Sodium Phos (Neutra-Phos Packet) 1 packet PO TID [facility] Stop: 05/08/18 06:01 Last Admin: 05/07/18 15:42 Dose: 1 packet Prednisolone Sodium Phosphate (Prelone Oral Solution (15 Mg/Ml)) 40 mg PO DAILY@0800 [facility] Last Admin: 05/07/18 10:37 Dose: 40 mg Trazodone HCl (Desyrel) 300 mg PO QHS [facility] Last Admin: 05/07/18 00:04 Dose: 300 mg Medical Necessity - Tobacco Use Smoking Status: Current some day smoker Tobacco Use: Cigarettes, Chew Assessment/Plan All Active Problems ETOH abuse (Acute) Methamphetamine abuse (Acute) Transaminitis (Acute) DONTA (acute kidney injury) (Acute) Hyponatremia (Acute) Jaundice due to hepatitis (Acute) 1. Acute alcoholic hepatitis in a patient who continues to drink. Was on prednisone and then changed to prednisolone Continue other supportive care 2. Alcohol withdrawal. On CIWA protocol. Stable 3. HTN. Better controlled on Clonidine 4. Depression. Likely reason for continued etoh abuse. Will need to look into this further 5. Hypokalemia. Secondary to alcohol abuse. Will replete 6. Hypophosphatemia. Will replete as well. 7. Alcohol abuse. 8. Possible early Wernicke's encephalopathy. Already on IV thiamine Code Visit Inpatient E&M: 59659 Subs Hosp L2
--- NOTE | 2018-05-07 16:15 | PN_ITS ---
Patient Problems: Active and Suspected Problems ETOH abuse (Acute) Methamphetamine abuse (Acute) Transaminitis (Acute) DONTA (acute kidney injury) (Acute) Hyponatremia (Acute) Jaundice due to hepatitis (Acute) Subjective: f/u for alcoholic hepatitis patient seen and examined Displaying some personality changes, some cognitive impairment Vitals/I&O's: Vital Signs Temp Pulse Resp BP Pulse Ox 98.1 F 92 18 117/68 93 05/07/18 10:00 05/07/18 14:00 05/07/18 10:00 05/07/18 10:00 05/07/18 10:00 Oxygen Delivery Method Room Air Weight: 89.046 kg Body Mass Index (BMI) 28.3 Intake and Output for Last 24 Hours 05/05/18 05/06/18 05/07/18 23:59 23:59 23:59 Intake Total 2250 / 2250 2850 / 2850 120 / 120 Output Total 1000 / 1000 1650 / 1650 Balance 1250 / 1250 1200 / 1200 120 / 120 General: Lethargic, - - ill looking and depressed looking as well HEENT: Atraumatic Oral: Moist Mucosa Neck: Supple Lungs: Clear to auscultation, Normal air movement Cardiovascular: Regular rate Abdomen: - - tenderness in the epigastrium Skin: No rashes Psych/Mental Status: Delusions, Flat Affect, Depressed, Irrational Behavior Laboratory Results 05/05/18 06:04: Diff Path Review Reviewed Current Medications Chlordiazepoxide (Librium) 50 mg PO TID [facility] Last Admin: 05/07/18 15:42 Dose: 50 mg Dicyclomine HCl (Bentyl) 20 mg PO Q6H PRN PRN PRN Reason: abdominal discomfort Last Admin: 05/02/18 21:55 Dose: 20 mg Fluvoxamine Maleate (Luvox) 100 mg PO BID [facility] Last Admin: 05/07/18 10:38 Dose: 100 mg Gabapentin (Neurontin) 300 mg PO TIDCM [facility] Last Admin: 05/07/18 13:00 Dose: 300 mg Heparin Sodium (Porcine) (Heparin Na) 5,000 unit SC Q8 [facility] Last Admin: 05/07/18 15:42 Dose: 5,000 unit Thiamine HCl 200 mg/ Sodium (Chloride) 52 mls @ 200 mls/hr IV DAILY [facility] Stop: 05/11/18 10:16 Last Admin: 05/07/18 12:20 Dose: 200 mls/hr Lorazepam (Ativan) 2 mg IV Q2H PRN PRN; Protocol PRN Reason: CIWA score > 8 but <15 Lorazepam (Ativan) 2 mg IV UD PRN; Protocol PRN Reason: CIWA score >/=15. Lorazepam (Ativan) 2 mg IV X1 PRN PRN Reason: Seizure Lorazepam (Ativan) 2 mg PO Q2H PRN PRN; Protocol PRN Reason: CIWA score > 8 but <15 Last Admin: 05/06/18 22:19 Dose: 2 mg Lorazepam (Ativan) 2 mg PO UD PRN; Protocol PRN Reason: CIWA score >/=15. Mirtazapine (Remeron) 30 mg PO QHS [facility] Last Admin: 05/06/18 22:11 Dose: 30 mg Multivitamins/Minerals ([facility]ivitamin With Minerals) [facility] Last Admin: 05/07/18 10:37 Dose: 1 tablet Nutritional Formula (Lactose Free) (Ensure Enlive) 120 ml PO 4X/DAY [facility] Last Admin: 05/07/18 15:42 Dose: Not Given Ondansetron HCl (Zofran Odt) 4 mg PO Q6H PRN PRN PRN Reason: NAUSEA Potassium Chloride (K-Dur) [facility] Stop: 05/08/18 08:01 Last Admin: 05/07/18 10:36 Dose: 40 meq Potassium Phos/Sodium Phos (Neutra-Phos Packet) 1 packet PO TID [facility] Stop: 05/08/18 06:01 Last Admin: 05/07/18 15:42 Dose: 1 packet Prednisolone Sodium Phosphate (Prelone Oral Solution (15 Mg/Ml)) 40 mg PO DAILY @0800 [facility] Last Admin: 05/07/18 10:37 Dose: 40 mg Trazodone HCl (Desyrel) 300 mg PO QHS [facility] Last Admin: 05/07/18 00:04 Dose: 300 mg Medical Necessity - Tobacco Use Smoking Status: Current some day smoker Tobacco Use: Cigarettes, Chew Assessment/Plan All Active Problems ETOH abuse (Acute) Methamphetamine abuse (Acute) Transaminitis (Acute) DONTA (acute kidney injury) (Acute) Hyponatremia (Acute) Jaundice due to hepatitis (Acute) 1. Acute alcoholic hepatitis in a patient who continues to drink. Was on prednisone and then changed to prednisolone Continue other supportive care 2. Alcohol withdrawal. On CIWA protocol. Stable 3. HTN. Better controlled on Clonidine 4. Depression. Likely reason for continued etoh abuse. Will need to look into this further 5. Hypokalemia. Secondary to alcohol abuse. Will replete 6. Hypophosphatemia. Will replete as well. 7. Alcohol abuse. 8. Possible early Wernicke's encephalopathy. Already on IV thiamine Code Visit Inpatient E&M: 79909 Subs Hosp L2
--- NOTE | 2018-05-07 16:25 | CASEMGMT ---
Social Work Met with pt in room and introduced self to pt. Inquired about Medicaid application and pt states his step mother took it home to complete. SW explained Medicaid process and that results are not immediate as application is processed. SW asked pt about d/c plan. Pt states he would like to go to rehab. SW explained to pt that he does not have insurance at this time and placement will be difficult due to this. Inquired about ability to private pay and pt states he does not have resources for this. Pt stating that if he cannot go to rehab he will go home. He lives in an apartment with his girlfriend. SW placed call to [facility] ([phone]) They do accept uninsured but will need to call this SW back to discuss. Phone call to [facility] but they do not take uninsured. SW will await return call from [facility]. AL Escalera
[2018-05-07] MEDS: Mirtazapine 30 MG Tablet PO (21:07)
[2018-05-08] VITALS (8 sets, daily range): BP systolic 117–126; BP diastolic 74; PULSE 74–101; RESP 16–18; TEMP 36.3–36.7; O2SAT 94–97
[2018-05-08] MEDS: traZODone 100 MG Tablet 300 MG PO (03:24)
[2018-05-08] MEDS: Na Biphos/Potassium Phosphate PACKET 1 PACKET PO (06:15)
[2018-05-08] MEDS: chlordiazePOXIDE 25 MG Capsule 50 MG PO ×3 (06:15→20:56)
[2018-05-08] MEDS: Heparin Injection (Vial) 5,000 UNIT/ML VIAL 5000 UNIT SC (06:15)
[2018-05-08] MEDS: Multivitamins,Ther W-Minerals Tablet 1 TABLET PO (10:26)
[2018-05-08] MEDS: fluvoxaMINE Maleate 50 MG Tablet 100 MG PO ×2 (10:27→20:57)
--- NOTE | 2018-05-08 10:55 | CASEMGMT ---
Addendum entered by Lynn Orellana 05/08/18 16:34: Leann at [facility] number [phone] ext. [phone]. Original Note: Social Work Note SW spoke with Leann at [facility]. Per Leann they are able to accept pt without insurance but they need pt to apply for Medicaid and to provide Medicaid card and if pt doesn't apply for Medicaid or doesn't get approved, cost would be 100% self-pay. SW placed a call to [facility], they accept pt without insurance but doesn't have residential program. SW looked up multiple rehab facilities and some accept Medicaid, commercial insurance only, clients have to be certain [facility], and at this time pt still doesn't have insurance. SW back to update pt on this. Per previous notes, pt's step mom Sasha took Medicaid application home and is completing application. Pt wanted this worker to talk to this step mom. SW spoke with step mom Sasha. Sasha confirms that she is working on Medicaid application and hopes to get it submitted either today or Friday. SW informed Sasha that once she completes application to submit it to [employer] and they will begin to process application. SW explained that most times the process takes some time and Sasha may have to submit additional paperwork. SW explained that this worker can continue to look for places that will accept pt that are uninsured but most likely it will be private pay for facilities until pt gets Medicaid approved. Sasha states understanding. Sasha has concerns for pt's safety. Sasha states that she thinks if pt goes home then pt is going to go back to drinking and pt needs to continue to get help for behavior health. GONZALEZ provided emotional support to Mitzi and explained through [facility] and if pt is agreeable then referral can be made. Sasha states understanding and thanked this SW. GONZALEZ spoke to pt about Behavior health. Pt agreeable to consult. GONZALEZ placed a call to and spoke with Tobin. Tobin states that he is familiar with pt and will be over to talk to pt. Plan: Pt to discharge home when medically cleared and follow up with rehab resources. Lynn Orellana SPOOLING MACHINE OPERATOR, [employer]
--- NOTE | 2018-05-08 12:26 | BH.NOTE ---
BH: Inpatient Note - Notes Behavioral Health Inpatient Note: 05/08/18 12:26 Referral to [facility] due to depression and substance abuse. Met with pt alone in his room. Alert and oriented. Cooperative. Denies any suicidal ideations, plan, or intent. Hx of numerous detox and residential admissions for alcohol dependence. Within the past two months completed substance abuse treatment at [facility] and [facility]. Pt reports that he relapsed as soon as I left both places. Reports that due to alcohol use he did not show for his job and ended up getting terminated. Binge drinking on a daily basis. Reports depression, anxiety, and guilt associated with use and his behaviors. Hx of OCD which he reports was managed effectively through mediations however recently stopped taking due to alcohol use. He could not recall the medications however believes it was Prozac. Informed pt's nurse and social work here at [facility] regarding past medications and suggested that we reach out to [facility] and PCP to clarify outpatient medications. He was followed by psychiatry at [facility] by Dr. Kenyon. Nursing staff had noted some obsessive and intrusive thoughts that he was accidently harming staff. Verbally contracts for safety stating I'm safe to go home if that is plan. Reports support through GF and step-mother which he reports are protective factors. Future-oriented. Requesting to be sent to substance abuse residential program however there are insurance obstacles. Pt was given resources to local MH and SA providers and encouraged to follow through. Spoke with GONZALEZ and suggested that she call [facility] to determine if they would be able to arrange residential treatment for pt w/o insurance who lives in the [facility]. Also recommended consult with [facility] for options and linkage with [facility] for psychiatry. [facility] GONZALEZ has already contacted [facility] regarding outpatient counseling and substance abuse IOP which is another option for pt upon discharge.
--- NOTE | 2018-05-08 17:02 | PCM.PN.HOSP ---
Patient Problems: Active and Suspected Problems ETOH abuse (Acute) Methamphetamine abuse (Acute) Transaminitis (Acute) DONTA (acute kidney injury) (Acute) Hyponatremia (Acute) Jaundice due to hepatitis (Acute) Subjective: f/u for acute alcoholic hepatitis Patient seen and examined Still feels weak. Appetite fair Vitals/I&O's: Vital Signs Temp Pulse Resp BP Pulse Ox 97.4 F L 100 18 120/74 94 05/08/18 13:50 05/08/18 13:50 05/08/18 13:50 05/08/18 13:50 05/08/18 13:50 Oxygen Delivery Method Room Air Weight: 89.046 kg Body Mass Index (BMI) 28.3 Intake and Output for Last 24 Hours 05/06/18 05/07/18 05/08/18 23:59 23:59 23:59 Intake Total 2850 / 2850 120 / 120 Output Total 1650 / 1650 Balance 1200 / 1200 120 / 120 General: Alert, Oriented x3, Cooperative, Lethargic HEENT: Atraumatic Oral: Moist Mucosa Neck: Supple Lungs: Clear to auscultation Skin: - - jaundice Neurological: Cranial nerves II-XII grossly intact Psych/Mental Status: Flat Affect, Depressed Current Medications Chlordiazepoxide (Librium) 50 mg PO TID [facility] Last Admin: 05/08/18 13:06 Dose: 50 mg Cyanocobalamin (Vitamin B12) 1,000 mcg PO DAILY@0800 [facility] Enoxaparin Sodium (Lovenox) 40 mg SC DAILY [facility] Fluvoxamine Maleate (Luvox) 100 mg PO BID [facility] Last Admin: 05/08/18 10:27 Dose: 100 mg Lorazepam (Ativan) 2 mg IV Q2H PRN PRN; Protocol PRN Reason: CIWA score > 8 but <15 Lorazepam (Ativan) 2 mg IV UD PRN; Protocol PRN Reason: CIWA score >/=15. Lorazepam (Ativan) 2 mg IV X1 PRN PRN Reason: Seizure Lorazepam (Ativan) 2 mg PO Q2H PRN PRN; Protocol PRN Reason: CIWA score > 8 but <15 Last Admin: 05/06/18 22:19 Dose: 2 mg Lorazepam (Ativan) 2 mg PO UD PRN; Protocol PRN Reason: CIWA score >/=15. Mirtazapine (Remeron) 30 mg PO QHS [facility] Last Admin: 05/07/18 21:07 Dose: 30 mg Multivitamins/Minerals (Multivitamin With Minerals) 1 tablet PO DAILYCM [facility] Last Admin: 05/08/18 10:26 Dose: 1 tablet Nutritional Formula (Lactose Free) (Ensure Enlive) 120 ml PO 4X/DAY [facility] Last Admin: 05/08/18 13:04 Dose: 120 ml Ondansetron HCl (Zofran Odt) 4 mg PO Q6H PRN PRN PRN Reason: NAUSEA Prednisolone Sodium Phosphate (Prelone Oral Solution (15 Mg/Ml)) 40 mg PO DAILY@0800 [facility] Last Admin: 05/08/18 10:26 Dose: 40 mg Trazodone HCl (Desyrel) 300 mg PO QHS [facility] Last Admin: 05/08/18 03:24 Dose: 300 mg Medical Necessity - Tobacco Use Smoking Status: Current some day smoker Tobacco Use: Cigarettes, Chew Assessment/Plan All Active Problems ETOH abuse (Acute) Methamphetamine abuse (Acute) Transaminitis (Acute) DONTA (acute kidney injury) (Acute) Hyponatremia (Acute) Jaundice due to hepatitis (Acute) 1. Acute alcoholic hepatitis in a patient who continues to drink. Was on prednisone and then changed to prednisolone Continue other supportive care 2. Alcohol withdrawal. On CIWA protocol. Stable 3. HTN. Better controlled on Clonidine 4. Depression. Likely reason for continued etoh abuse. Behavioral health consulted 5. Hypokalemia. Secondary to alcohol abuse. Repleted 6. Hypophosphatemia. Continue to replete. 7. Alcohol abuse. 8. Possible early Wernicke's encephalopathy. Already on IV thiamine Code Visit Inpatient E&M: 33748 Subs Hosp L2
--- NOTE | 2018-05-08 17:06 | PN_ITS ---
Patient Problems: Active and Suspected Problems ETOH abuse (Acute) Methamphetamine abuse (Acute) Transaminitis (Acute) DONTA (acute kidney injury) (Acute) Hyponatremia (Acute) Jaundice due to hepatitis (Acute) Subjective: f/u for acute alcoholic hepatitis Patient seen and examined Still feels weak. Appetite fair Vitals/I&O's: Vital Signs Temp Pulse Resp BP Pulse Ox 97.4 F L 100 18 120/74 94 05/08/18 13:50 05/08/18 13:50 05/08/18 13:50 05/08/18 13:50 05/08/18 13:50 Oxygen Delivery Method Room Air Weight: 89.046 kg Body Mass Index (BMI) 28.3 Intake and Output for Last 24 Hours 05/06/18 05/07/18 05/08/18 23:59 23:59 23:59 Intake Total 2850 / 2850 120 / 120 Output Total 1650 / 1650 Balance 1200 / 1200 120 / 120 General: Alert, Oriented x3, Cooperative, Lethargic HEENT: Atraumatic Oral: Moist Mucosa Neck: Supple Lungs: Clear to auscultation Skin: - - jaundice Neurological: Cranial nerves II-XII grossly intact Psych/Mental Status: Flat Affect, Depressed Current Medications Chlordiazepoxide (Librium) 50 mg PO TID [facility] Last Admin: 05/08/18 13:06 Dose: 50 mg Cyanocobalamin (Vitamin B12) 1,000 mcg PO DAILY@0800 [facility] Enoxaparin Sodium (Lovenox) 40 mg SC DAILY [facility] Fluvoxamine Maleate (Luvox) 100 mg PO BID [facility] Last Admin: 05/08/18 10:27 Dose: 100 mg Lorazepam (Ativan) 2 mg IV Q2H PRN PRN; Protocol PRN Reason: CIWA score > 8 but <15 Lorazepam (Ativan) 2 mg IV UD PRN; Protocol PRN Reason: CIWA score >/=15. Lorazepam (Ativan) 2 mg IV X1 PRN PRN Reason: Seizure Lorazepam (Ativan) 2 mg PO Q2H PRN PRN; Protocol PRN Reason: CIWA score > 8 but <15 Last Admin: 05/06/18 22:19 Dose: 2 mg Lorazepam (Ativan) 2 mg PO UD PRN; Protocol PRN Reason: CIWA score >/=15. Mirtazapine (Remeron) 30 mg PO QHS [facility] Last Admin: 05/07/18 21:07 Dose: 30 mg Multivitamins/Minerals (Multivitamin With Minerals) 1 tablet PO DAILYCM [facility] Last Admin: 05/08/18 10:26 Dose: 1 tablet Nutritional Formula (Lactose Free) (Ensure Enlive) 120 ml PO 4X/DAY [facility] Last Admin: 05/08/18 13:04 Dose: 120 ml Ondansetron HCl (Zofran Odt) 4 mg PO Q6H PRN PRN PRN Reason: NAUSEA Prednisolone Sodium Phosphate (Prelone Oral Solution (15 Mg/Ml)) 40 mg PO DAILY @0800 [facility] Last Admin: 05/08/18 10:26 Dose: 40 mg Trazodone HCl (Desyrel) 300 mg PO QHS [facility] Last Admin: 05/08/18 03:24 Dose: 300 mg Medical Necessity - Tobacco Use Smoking Status: Current some day smoker Tobacco Use: Cigarettes, Chew Assessment/Plan All Active Problems ETOH abuse (Acute) Methamphetamine abuse (Acute) Transaminitis (Acute) DONTA (acute kidney injury) (Acute) Hyponatremia (Acute) Jaundice due to hepatitis (Acute) 1. Acute alcoholic hepatitis in a patient who continues to drink. Was on prednisone and then changed to prednisolone Continue other supportive care 2. Alcohol withdrawal. On CIWA protocol. Stable 3. HTN. Better controlled on Clonidine 4. Depression. Likely reason for continued etoh abuse. Behavioral health consulted 5. Hypokalemia. Secondary to alcohol abuse. Repleted 6. Hypophosphatemia. Continue to replete. 7. Alcohol abuse. 8. Possible early Wernicke's encephalopathy. Already on IV thiamine Code Visit Inpatient E&M: 95322 Subs Hosp L2
[2018-05-08] MEDS: Mirtazapine 30 MG Tablet PO (20:57)
[2018-05-09] VITALS (12 sets, daily range): BP systolic 112–131; BP diastolic 64–73; PULSE 78–122; RESP 14–16; TEMP 36.9–37.3; O2SAT 94–96
[2018-05-09] MEDS: traZODone 100 MG Tablet 300 MG PO (00:20)
[2018-05-09] MEDS: chlordiazePOXIDE 25 MG Capsule 50 MG PO ×3 (05:39→22:39)
[2018-05-09] MEDS: Multivitamins,Ther W-Minerals Tablet 1 TABLET PO (08:31)
[2018-05-09] MEDS: Cyanocobalamin 500 MCG Tablet 1000 MCG PO (08:31)
[2018-05-09] MEDS: Enoxaparin 40 MG/0.4 ML Syringe SC (09:08)
[2018-05-09] MEDS: fluvoxaMINE Maleate 50 MG Tablet 100 MG PO ×2 (09:09→22:34)
--- NOTE | 2018-05-09 19:08 | PN_ITS ---
Patient Problems: Active and Suspected Problems ETOH abuse (Acute) Methamphetamine abuse (Acute) Transaminitis (Acute) DONTA (acute kidney injury) (Acute) Hyponatremia (Acute) Jaundice due to hepatitis (Acute) Subjective: f/u for alcoholic hepatitis Vitals/I&O's: Vital Signs Temp Pulse Resp BP Pulse Ox 98.4 F 122 H 16 116/64 94 05/09/18 13:51 05/09/18 16:41 05/09/18 13:51 05/09/18 13:51 05/09/18 13:51 Oxygen Delivery Method Room Air Weight: 89.046 kg Body Mass Index (BMI) 28.3 Intake and Output for Last 24 Hours 05/07/18 05/08/18 05/09/18 23:59 23:59 23:59 Intake Total 120 / 120 Balance 120 / 120 General: Alert, Oriented x3, Cooperative HEENT: Atraumatic Oral: Moist Mucosa Neck: Supple Lungs: Clear to auscultation Skin: - - jaundice Neurological: Cranial nerves II-XII grossly intact, Neuro grossly intact Psych/Mental Status: Flat Affect, Depressed Current Medications Chlordiazepoxide (Librium) 50 mg PO TID [facility] Last Admin: 05/09/18 13:55 Dose: 50 mg Cyanocobalamin (Vitamin B12) 1,000 mcg PO DAILY@0800 [facility] Last Admin: 05/09/18 08:31 Dose: 1,000 mcg Enoxaparin Sodium (Lovenox) 40 mg SC DAILY [facility] Last Admin: 05/09/18 09:08 Dose: 40 mg Fluvoxamine Maleate (Luvox) 100 mg PO BID [facility] Last Admin: 05/09/18 09:09 Dose: 100 mg Lorazepam (Ativan) 2 mg IV Q2H PRN PRN; Protocol PRN Reason: CIWA score > 8 but <15 Lorazepam (Ativan) 2 mg IV UD PRN; Protocol PRN Reason: CIWA score >/=15. Lorazepam (Ativan) 2 mg IV X1 PRN PRN Reason: Seizure Lorazepam (Ativan) 2 mg PO Q2H PRN PRN; Protocol PRN Reason: CIWA score > 8 but <15 Last Admin: 05/06/18 22:19 Dose: 2 mg Lorazepam (Ativan) 2 mg PO UD PRN; Protocol PRN Reason: CIWA score >/=15. Mirtazapine (Remeron) 30 mg PO QHS [facility] Last Admin: 05/08/18 20:57 Dose: 30 mg Multivitamins/Minerals ([facility]) [facility] Last Admin: 05/09/18 08:31 Dose: 1 tablet Nutritional Formula (Lactose Free) (Ensure Enlive) 120 ml PO 4X/DAY [facility] Last Admin: 05/09/18 17:42 Dose: 120 ml Ondansetron HCl (Zofran Odt) 4 mg PO Q6H PRN PRN PRN Reason: NAUSEA Prednisolone Sodium Phosphate (Prelone Oral Solution (15 Mg/Ml)) 40 mg PO DAILY @0800 [facility] Last Admin: 05/09/18 08:31 Dose: 40 mg Thiamine HCl ([facility]itamin B1) [facility] Trazodone HCl (Desyrel) 300 mg PO QHS [facility] Last Admin: 05/09/18 00:20 Dose: 300 mg Medical Necessity - Tobacco Use Smoking Status: Current some day smoker Tobacco Use: Cigarettes, Chew Assessment/Plan All Active Problems ETOH abuse (Acute) Methamphetamine abuse (Acute) Transaminitis (Acute) DONTA (acute kidney injury) (Acute) Hyponatremia (Acute) Jaundice due to hepatitis (Acute) 1. Acute alcoholic hepatitis in a patient who continues to drink. Was on prednisone and then changed to prednisolone Continue other supportive care 2. Alcohol withdrawal. On CIWA protocol. Stable 3. HTN. Better controlled on Clonidine 4. Depression. Likely reason for continued etoh abuse. Behavioral health consulted 5. Hypokalemia. Secondary to alcohol abuse. Repleted 6. Hypophosphatemia. Continue to replete. 7. Alcohol abuse. 8. Possible early Wernicke's encephalopathy. Already on IV thiamine Code Visit Inpatient E&M: 98389 Subs Hosp L2
[2018-05-09] MEDS: Mirtazapine 30 MG Tablet PO (22:34)
[2018-05-10] VITALS (8 sets, daily range): BP systolic 113–129; BP diastolic 69–75; PULSE 82–97; RESP 14–16; TEMP 36.4–37.1; O2SAT 94–97
[2018-05-10] MEDS: traZODone 100 MG Tablet 300 MG PO (00:08)
[2018-05-10] MEDS: chlordiazePOXIDE 25 MG Capsule 50 MG PO (05:24)
[2018-05-10 06:59] LABS: Hematocrit 31.5 % (40-54); Hemoglobin 9.7 g/dl (13.0-16.5); Mean Corp Hgb Conc 30.8 g/gl (32-36); Mean Corpuscular Hgb 33.2 pg (27.0-32.0); Mean Corpuscular Volume 107.9 fL (80-94); Platelet Count 318 K/mm3 (150-450); RBC Distribution Width CV 21.2 % (11.6-14.6); RBC Distribution Width SD 82.6 fl (35.1-43.9); Red Blood Count 2.92 M/mm3 (4.6-6.2); White Blood Count 12.3 K/mm3 (4.4-11.0)
[2018-05-10 07:00] LABS: Differential Indicated MANUAL DIFF; POSITIVE COUNT YES; POSITIVE DIFFERENTIAL NO; POSITIVE MORPHOLOGY YES
[2018-05-10 07:04] LABS: ALB/GLOB Ratio 0.6 RATIO (0.9-2.4); AST(SGOT) 164 U/L (15-37); Alanine Aminotransfer ALT/SGPT 173 U/L (16-61); Albumin, Serum 2.3 g/dL (3.2-5.0); Alkaline Phosphatase 494 U/L (45-117); Anion Gap 8 (5-15); BUN 16 mg/dL (7-18); BUN/Creat Ratio 17.5 RATIO (10-20); Calcium,Total 8.1 mg/dL (8.5-10.1); Chloride 100 mmol/L (98-107); Creatinine, Serum 0.91 mg/dL (0.70-1.30); EST Glomerular Filtration Rate 94 mL/min (>60); Est Glom Filt Rate - Afr Amer 113 mL/min (>60); Estimated Creatinine Clearance 101.39 ml/min; Globulin 3.6 g/dL (2.2-4.2); Glucose 80 mg/dL (74-106); Potassium 3.6 mmol/L (3.5-5.1); Protein, Total 5.9 g/dL (6.4-8.2); Sodium Level 135 mmol/L (136-145)
[2018-05-10 07:34] LABS: Anisocytosis 1+; Basophil 1 % (0-1); Hypochromasia 1+; Lymphocyte 36 % (19-41); Metamyelocyte 4 % (0-1); Microcytosis 1+; Monocyte 3 % (0-10); Neutrophil-Band 3 % (0-5); Neutrophil-Segmented 53 % (47-70); Platelet Estimate ADEQUATE (ADEQ); Platelet Morphology LARGE; Polychromasia 1+; Total Cells Counted 100 (MANUAL DIFF)
[2018-05-10 07:36] LABS: Absolute Lymphocyte Count 4.43 X10^3/ul (0.83-4.51); Absolute Neutrophil Count 6.9 X10^3/uL (2.0-7.7); Absolute Nucleated RBC Count 0.21 10^3/uL (0-5); NRBC Flagged by Analyzer 1.7 % (0-5)
[2018-05-10] MEDS: Thiamine Hydrochloride 100 MG Tablet 500 MG PO (08:08)
[2018-05-10] MEDS: Cyanocobalamin 500 MCG Tablet 1000 MCG PO (08:08)
[2018-05-10] MEDS: Multivitamins,Ther W-Minerals Tablet 1 TABLET PO (08:09)
[2018-05-10 09:46] LABS: Phosphorus 3.8 mg/dL (2.5-4.9)
[2018-05-10] MEDS: Enoxaparin 40 MG/0.4 ML Syringe SC (10:09)
[2018-05-10] MEDS: fluvoxaMINE Maleate 50 MG Tablet 100 MG PO ×2 (10:09→22:46)
[2018-05-10] MEDS: chlordiazePOXIDE 25 MG Capsule PO ×2 (14:26→22:45)
--- NOTE | 2018-05-10 15:58 | PCM.PN.HOSP ---
Patient Problems: Active and Suspected Problems ETOH abuse (Acute) Methamphetamine abuse (Acute) Transaminitis (Acute) DONTA (acute kidney injury) (Acute) Hyponatremia (Acute) Jaundice due to hepatitis (Acute) Subjective: f/u for alcoholic hepatitis Patient seen and examined Still complains of weakness. Informed him thta this will take some time to improve Patient encouraged generally Vitals/I&O's: Vital Signs Temp Pulse Resp BP Pulse Ox 98.7 F 97 16 115/72 96 05/10/18 14:19 05/10/18 14:19 05/10/18 14:19 05/10/18 14:05/10/18 14:19 Oxygen Delivery Method Room Air Weight: 89.046 kg Body Mass Index (BMI) 28.3 General: Alert, Oriented x3, Cooperative, Lethargic, - HEENT: - - less jaundice Oral: Moist Mucosa Neck: Supple Lungs: Clear to auscultation Abdomen: Obese Extremities: - - MWR Skin: - - less jaundice Neurological: Cranial nerves II-XII grossly intact, Neuro grossly intact Psych/Mental Status: Flat Affect, Depressed, Irrational Behavior Laboratory Results 05/10/18 05:50: WBC 12.3 H, RBC 2.92 L, Hgb 9.7 L, Hct 31.5 L, MCV 107.9 H, MCH 33.2 H, MCHC 30.8 L, RDW 21.2 H, RDW Differential 82.6 H, Plt Count 318, MPV 10.0, Neut % (Auto) Not Reportable, Absolute Neuts (auto) 6.9, Absolute Lymphs (auto) 4.43, Total Counted 100, Neutrophils % (Manual) 53, Band Neutrophils % 3, Lymphocytes % (Manual) 36, Monocytes % (Manual) 3, Basophils % (Manual) 1, Metamyelocytes % 4 H, Nucleated RBC % 1.7, Diff Path Review May foll, Platelet Estimate ADEQUATE, Plt Morphology Comment LARGE, Polychromasia 1+, Hypochromasia 1+, Anisocytosis 1+, Microcytosis 1+, Absolute Retic 0.21 05/10/18 05:50: Sodium 135 L, Potassium 3.6, Chloride 100, Carbon Dioxide 27.0, Anion Gap 8, BUN 16, Creatinine 0.91, Estim Creat Clear Calc 101.39, Est GFR (MDRD) Af Amer 113, Est GFR (MDRD) Non-Af 94, BUN/Creatinine Ratio 17.5, Glucose 80, Calcium 8.1 L, Total Bilirubin 4.90 H, AST 164 H, ALT 173 H, Alkaline Phosphatase 494 H, Total Protein 5.9 L, Albumin 2.3 L, Globulin 3.6, Albumin/Globulin Ratio 0.6 L 05/10/18 05:50: Phosphorus 3.8 Current Medications Chlordiazepoxide (Librium) 25 mg PO TID [facility] Last Admin: 05/10/18 14:26 Dose: 25 mg Cyanocobalamin (Vitamin B12) 1,000 mcg PO DAILY@0800 [facility] Last Admin: 05/10/18 08:08 Dose: 1,000 mcg Enoxaparin Sodium (Lovenox) 40 mg SC DAILY [facility] Last Admin: 05/10/18 10:09 Dose: 40 mg Fluvoxamine Maleate (Luvox) 100 mg PO BID [facility] Last Admin: 05/10/18 10:09 Dose: 100 mg Mirtazapine (Remeron) 30 mg PO QHS [facility] Last Admin: 05/09/18 22:34 Dose: 30 mg Multivitamins/Minerals ([facility]ivitamin With Minerals) [facility] Last Admin: 05/10/18 08:09 Dose: 1 tablet Nutritional Formula (Lactose Free) (Ensure Enlive) 120 ml PO 4X/DAY [facility] Last Admin: 05/10/18 14:26 Dose: 120 ml Ondansetron HCl (Zofran Odt) 4 mg PO Q6H PRN PRN PRN Reason: NAUSEA Prednisolone Sodium Phosphate (Prelone Oral Solution (15 Mg/Ml)) 40 mg PO DAILY@0800 [facility] Last Admin: 05/10/18 08:09 Dose: 40 mg Thiamine HCl ([facility]itamin B1) [facility] Last Admin: 05/10/18 08:08 Dose: 500 mg Trazodone HCl (Desyrel) 300 mg PO QHS [facility] Last Admin: 05/10/18 00:08 Dose: 300 mg Medical Necessity - Tobacco Use Smoking Status: Current some day smoker Tobacco Use: Cigarettes, Chew Assessment/Plan All Active Problems ETOH abuse (Acute) Methamphetamine abuse (Acute) Transaminitis (Acute) DONTA (acute kidney injury) (Acute) Hyponatremia (Acute) Jaundice due to hepatitis (Acute) 1. Acute alcoholic hepatitis in a patient who continues to drink. Was on prednisone and then changed to prednisolone. LFTs especially bilirubin improving Continue other supportive care 2. Alcohol withdrawal. On CIWA protocol. Stable 3. HTN. Better controlled on Clonidine 4. Depression. Likely reason for continued etoh abuse. Behavioral health consulted. Patient on antidepressants 5. Hypokalemia. Secondary to alcohol abuse. Repleted 6. Hypophosphatemia. Continue to replete. 7. Alcohol abuse. Today again I continued to encourage abstinence 8. Possible early Wernicke's encephalopathy. IV thiamine changed to oral Code Visit Inpatient E&M: 90230 Subs Hosp L2
--- NOTE | 2018-05-10 16:03 | PN_ITS ---
Patient Problems: Active and Suspected Problems ETOH abuse (Acute) Methamphetamine abuse (Acute) Transaminitis (Acute) DONTA (acute kidney injury) (Acute) Hyponatremia (Acute) Jaundice due to hepatitis (Acute) Subjective: f/u for alcoholic hepatitis Patient seen and examined Still complains of weakness. Informed him thta this will take some time to improve Patient encouraged generally Vitals/I&O's: Vital Signs Temp Pulse Resp BP Pulse Ox 98.7 F 97 16 115/72 96 05/10/18 14:19 05/10/18 14:19 05/10/18 14:19 05/10/18 14:05/10/18 14:19 Oxygen Delivery Method Room Air Weight: 89.046 kg Body Mass Index (BMI) 28.3 General: Alert, Oriented x3, Cooperative, Lethargic, - HEENT: - - less jaundice Oral: Moist Mucosa Neck: Supple Lungs: Clear to auscultation Abdomen: Obese Extremities: - - MWR Skin: - - less jaundice Neurological: Cranial nerves II-XII grossly intact, Neuro grossly intact Psych/Mental Status: Flat Affect, Depressed, Irrational Behavior Laboratory Results 05/10/18 05:50: WBC 12.3 H, RBC 2.92 L, Hgb 9.7 L, Hct 31.5 L, MCV 107.9 H, MCH 33.2 H, MCHC 30.8 L, RDW 21.2 H, RDW Differential 82.6 H, Plt Count 318, MPV 10.0, Neut % (Auto) Not Reportable, Absolute Neuts (auto) 6.9, Absolute Lymphs ( auto) 4.43, Total Counted 100, Neutrophils % (Manual) 53, Band Neutrophils % 3, Lymphocytes % (Manual) 36, Monocytes % (Manual) 3, Basophils % (Manual) 1, Metamyelocytes % 4 H, Nucleated RBC % 1.7, Diff Path Review May foll, Platelet Estimate ADEQUATE, Plt Morphology Comment LARGE, Polychromasia 1+, Hypochromasia 1+, Anisocytosis 1+, Microcytosis 1+, Absolute Retic 0.21 05/10/18 05:50: Sodium 135 L, Potassium 3.6, Chloride 100, Carbon Dioxide 27.0, Anion Gap 8, BUN 16, Creatinine 0.91, Estim Creat Clear Calc 101.39, Est GFR ( MDRD) Af Amer 113, Est GFR (MDRD) Non-Af 94, BUN/Creatinine Ratio 17.5, Glucose 80, Calcium 8.1 L, Total Bilirubin 4.90 H, AST 164 H, ALT 173 H, Alkaline Phosphatase 494 H, Total Protein 5.9 L, Albumin 2.3 L, Globulin 3.6, Albumin/ Globulin Ratio 0.6 L 05/10/18 05:50: Phosphorus 3.8 Current Medications Chlordiazepoxide (Librium) 25 mg PO TID [facility] Last Admin: 05/10/18 14:26 Dose: 25 mg Cyanocobalamin (Vitamin B12) 1,000 mcg PO DAILY@0800 [facility] Last Admin: 05/10/18 08:08 Dose: 1,000 mcg Enoxaparin Sodium (Lovenox) 40 mg SC DAILY [facility] Last Admin: 05/10/18 10:09 Dose: 40 mg Fluvoxamine Maleate (Luvox) 100 mg PO BID [facility] Last Admin: 05/10/18 10:09 Dose: 100 mg Mirtazapine (Remeron) 30 mg PO QHS [facility] Last Admin: 05/09/18 22:34 Dose: 30 mg Multivitamins/Minerals (Multivitamin With Minerals) [facility] Last Admin: 05/10/18 08:09 Dose: 1 tablet Nutritional Formula (Lactose Free) (Ensure Enlive) 120 ml PO 4X/DAY [facility] Last Admin: 05/10/18 14:26 Dose: 120 ml Ondansetron HCl (Zofran Odt) 4 mg PO Q6H PRN PRN PRN Reason: NAUSEA Prednisolone Sodium Phosphate (Prelone Oral Solution (15 Mg/Ml)) 40 mg PO DAILY @0800 [facility] Last Admin: 05/10/18 08:09 Dose: 40 mg Thiamine HCl (Vitamin B1) [facility] Last Admin: 05/10/18 08:08 Dose: 500 mg Trazodone HCl (Desyrel) 300 mg PO QHS [facility] Last Admin: 05/10/18 00:08 Dose: 300 mg Medical Necessity - Tobacco Use Smoking Status: Current some day smoker Tobacco Use: Cigarettes, Chew Assessment/Plan All Active Problems ETOH abuse (Acute) Methamphetamine abuse (Acute) Transaminitis (Acute) DONTA (acute kidney injury) (Acute) Hyponatremia (Acute) Jaundice due to hepatitis (Acute) 1. Acute alcoholic hepatitis in a patient who continues to drink. Was on prednisone and then changed to prednisolone. LFTs especially bilirubin improving Continue other supportive care 2. Alcohol withdrawal. On CIWA protocol. Stable 3. HTN. Better controlled on Clonidine 4. Depression. Likely reason for continued etoh abuse. Behavioral health consulted. Patient on antidepressants 5. Hypokalemia. Secondary to alcohol abuse. Repleted 6. Hypophosphatemia. Continue to replete. 7. Alcohol abuse. Today again I continued to encourage abstinence 8. Possible early Wernicke's encephalopathy. IV thiamine changed to oral Code Visit Inpatient E&M: 94998 Subs Hosp L2
[2018-05-10] MEDS: Propranolol LA 60 MG Capsule PO (18:25)
[2018-05-10] MEDS: Mirtazapine 30 MG Tablet PO (22:45)
[2018-05-11] MEDS: traZODone 100 MG Tablet 300 MG PO (00:12)
[2018-05-11 02:39] VITALS: BP 99/55; PULSE 90; RESP 16; TEMP 36.8; O2SAT 94
[2018-05-11] MEDS: Ibuprofen 400 MG Tablet PO (02:45)
[2018-05-11 03:48] VITALS: PULSE 87
[2018-05-11] MEDS: chlordiazePOXIDE 25 MG Capsule PO ×2 (06:00→14:35)
[2018-05-11 07:33] VITALS: PULSE 77
[2018-05-11 08:16] VITALS: BP 115/69; PULSE 79; RESP 16; TEMP 37.1; O2SAT 94
[2018-05-11] MEDS: Multivitamins,Ther W-Minerals Tablet 1 TABLET PO (08:19)
[2018-05-11] MEDS: Cyanocobalamin 500 MCG Tablet 1000 MCG PO (08:19)
[2018-05-11] MEDS: fluvoxaMINE Maleate 50 MG Tablet 100 MG PO (08:19)
[2018-05-11] MEDS: Thiamine Hydrochloride 100 MG Tablet 500 MG PO (08:19)
[2018-05-11] MEDS: Enoxaparin 40 MG/0.4 ML Syringe SC (08:20)
[2018-05-11] MEDS: Propranolol LA 60 MG Capsule PO (08:21)
--- NOTE | 2018-05-11 11:25 | CASEMGMT ---
Social Work Note Pt is being discharged today. GONZALEZ spoke with Physician and informed Physician that pt will need to follow up with rehab for Mental Health and substance abuse at discharge. GONZALEZ explained that pt currently doesn't have insurance and should wait to get insurance before going to rehab. GONZALEZ explained to physician that pt's step mom should have completed Medicaid Application. Pt's PCP is Dagoberto Mari. GONZALEZ spoke with Rhiannon Skinner who states that a referral to [facility] may be beneficial for pt. GONZALEZ placed a call to Juvenal at [facility] and referral was made. Juvenal states that she will have to review referral to determine if she is able to accept pt. Plan: Pt to discharge home Lynn Orellana PSYCHOLOGY PROFESSOR, [employer]
[2018-05-11 13:00] VITALS: PULSE 86
--- NOTE | 2018-05-11 14:06 | DCINST_ITS ---
- Discharge Diagnoses Current Active Problems: Current Active and Chronic Problems ETOH abuse (Acute) Methamphetamine abuse (Acute) Acute alcoholic hepatitis DONTA (acute kidney injury) (Acute) Hyponatremia (Acute) You will use the following diet at home:: No restrictions, Regular Your food should be the consistency of: Regular Your liquids should be the consistency of: Regular/Thin Discharge Activity: Return to Normal Activity, No Restrictions Allergies/Adverse Reactions: Allergies amoxicillin Adverse Reaction (Verified 05/01/18 20:01) Upset Stomach Medications to take at Discharge Fluvoxamine Maleate [Luvox Cr] 100 mg PO BID 10/16/15 Trazodone HCl 300 mg PO QHS PRN 10/16/15 Lisinopril 20 mg PO DAILY 05/03/18 Cyanocobalamin [Vitamin B12] 1,000 mcg PO DAILY@0800 30 Days #30 tab 05/11/18 Mirtazapine [Remeron] 30 mg PO QHS 30 Days #30 tab 05/11/18 Multivitamins,Ther W-Minerals [Multivitamin With Minerals] 1 tab PO DAILYCM 30 Days #30 tab 05/11/18 Thiamine Hydrochloride [Vitamin B1] 500 mg PO DAILYCM 30 Days #30 tab 05/11/18 prednisoLONE soln (15 mg/mL) [Prelone Oral Solution] 40 mg PO DAILY@0800 #14 ml 05/11/18 The following prescriptions were given: Cyanocobalamin [Vitamin B12] 1,000 mcg PO DAILY@0800 30 Days #30 tab Mirtazapine [Remeron] 30 mg PO QHS 30 Days #30 tab Multivitamins,Ther W-Minerals [Multivitamin With Minerals] 1 tab PO DAILYCM 30 Days #30 tab prednisoLONE soln (15 mg/mL) [Prelone Oral Solution] 40 mg PO DAILY@0800 #14 ml Thiamine Hydrochloride [Vitamin B1] 500 mg PO DAILYCM 30 Days #30 tab Primary Care Physician: Dagoberto Mari MD [Primary Care Provider] - Test Results: Test results from this visit will be discussed in further detail at your follow- up appointment, if applicable. Proposed Discharge Date: 05/11/18
--- NOTE | 2018-05-11 14:06 | PCM.DC.SUM ---
Discharge Date and Diagnosis - Problem List Patient Problems: Active and Suspected Problems ETOH abuse (Acute) Methamphetamine abuse (Acute) Transaminitis (Acute) DONTA (acute kidney injury) (Acute) Hyponatremia (Acute) Jaundice due to hepatitis (Acute) Depression (Acute) Date of Admission: 05/01/18 Date of Discharge: 05/11/18 - Primary Discharge Diagnosis Active and Suspected Problems ETOH abuse (Acute) Methamphetamine abuse (Acute) Transaminitis (Acute) DONTA (acute kidney injury) (Acute) Hyponatremia (Acute) Jaundice due to hepatitis (Acute) - Secondary Discharge Diagnosis Hypertension Depression Hospital Course and Treatment Operations: None Procedures: None Summary of Care Provided: The patient is a 48 year old M with h/o alcohol abuse and frequent and recurrent admissions for complications related to the same. Admitted on account of severe alcoholic hepatitis from continued alcohol abuse. Patient was managed conservatively and treated with steroids as well and has also undergone counselling and other emotional and spiritual support. Would have preferred inpatient rehab for alcohol abuse but patient has no insurance and so unable to be admitted anywhere. Medicaid is being applied for however at this time. For now have been given resources for outpatient counselling and support. Encouraged on abstinence. Today patient is stable for discharge home Thiamine for treatment of possible early Wernicke's encephalopathy Patient will also be going home on steroids for alcoholic hepatitis[] Discharge Activity: Return to Normal Activity, No Restrictions Home Medications: Medications to take at Discharge Fluvoxamine Maleate [Luvox Cr] 100 mg PO BID 10/16/15 Trazodone HCl 300 mg PO QHS PRN 10/16/15 Lisinopril 20 mg PO DAILY 05/03/18 Cyanocobalamin [Vitamin B12] 1,000 mcg PO DAILY@0800 30 Days #30 tab 05/11/18 Mirtazapine [Remeron] 30 mg PO QHS 30 Days #30 tab 05/11/18 Multivitamins,Ther W-Minerals [Multivitamin With Minerals] 1 tab PO DAILYCM 30 Days #30 tab 05/11/18 Thiamine Hydrochloride [Vitamin B1] 500 mg PO DAILYCM 30 Days #30 tab 05/11/18 prednisoLONE soln (15 mg/mL) [Prelone Oral Solution] 40 mg PO DAILY@0800 #14 ml 05/11/18 Following Prescrptions Were Given to Patient: Cyanocobalamin [Vitamin B12] 1,000 mcg PO DAILY@0800 30 Days #30 tab Mirtazapine [Remeron] 30 mg PO QHS 30 Days #30 tab Multivitamins,Ther W-Minerals [Multivitamin With Minerals] 1 tab PO DAILYCM 30 Days #30 tab prednisoLONE soln (15 mg/mL) [Prelone Oral Solution] 40 mg PO DAILY@0800 #14 ml Thiamine Hydrochloride [Vitamin B1] 500 mg PO DAILYCM 30 Days #30 tab Primary Care Physician: Dagoberto Mari MD [Primary Care Provider] - Medical Necessity - Tobacco Use Smoking Status: Current some day smoker Tobacco Use: Cigarettes, Chew Meaningful Use Info Meaningful Use Diagnoses (Choose all that apply): None applicable Code Visit Inpatient E&M: 45962 Disch Hosp
[2018-05-11 14:15] VITALS: BP 115/69; PULSE 88; RESP 18; TEMP 36.8; O2SAT 95
--- NOTE | 2018-05-11 14:32 | PCA ---
Made discharge appointments for patient for primary care
[2018-05-11 14:45] LABS: Pathologist Review Reviewed
--- NOTE | 2018-05-12 09:51 | CCN.REFER ---
PATIENT DOES NOT QUALIFY FOR [facility] AT THIS TIME. PATIENT DOES NOT HAVE THE PAST MEDICAL HISTORY FOR US TO WORK ON WITH HIM.
--- NOTE | 2018-05-29 15:19 | CASEMGMT ---
Addendum entered by Lynn Orellana 05/29/18 16:23: SW was able to talk to pt's step mom Sasha and informed her that the only number this worker has is the number online for [facility]. Sasha states that that is the number she has as well. Sasha thanked this SW for calling her back. Original Note: Social Work Note SW received messages from pt's step mom Sasha in regards to finding treatment for pt. SW attempted to call Sasha but didn't get an answer so a message was left. SW received another message from Sasha asking if this worker had additional number for [facility] in [place] as she has called and text facility but has been unable to get in contact with them. SW attempted to call Sasha back but Sasha was unable to speak to this worker at this time. Lynn Orellana IMPLEMENTATION LEAD, HOME HEALTH CARE PROVIDER
== END 2018-05-11 16:05 | disposition home or self-care (01) | DRG 433 ==
LOC: ED 20:19 → ICU 20:40 → MS3 05-03 12:23
PROVIDERS: Family Medicine; Internal Medicine; Internal Medicine Critical Care Medicine; Admitting Provider Internal Medicine; Emergency Provider Emergency Medicine; Family Provider Family Medicine; PCP Family Medicine; Visit Provider Internal Medicine
DX: K70.10 Alcoholic hepatitis without ascites (principal); N17.9 Acute kidney failure, unspecified; F10.239 Alcohol dependence with withdrawal, unspecified; E87.1 Hypo-osmolality and hyponatremia; F15.10 Other stimulant abuse, uncomplicated; F32.9 Major depressive disorder, single episode, unspecified; I10 Essential (primary) hypertension; F17.210 Nicotine dependence, cigarettes, uncomplicated; E83.39 Other disorders of phosphorus metabolism
CPT/HCPCS: 36415; 76705; 80048; 80053; 80076; 80307; 80320; 82140; 82977; 83690; 83735; 84100; 85025; 85610; 85730; 86704; 86705; 86706; 86708; 86709; 86803; 87340; 97116; 97162; 97165; 97530; 99283; 99406; J7030; J7040; A4216; G0480; J2405; J3490

== ENCOUNTER 2018-06-21 22:55 | Inpatient (IN) | payer MEDICAID, SELFPAY ==
[2018-06-21 22:57] VITALS: BP 159/85; PULSE 136; RESP 18; TEMP 36.9; O2SAT 99; BMI 29.7
--- NOTE | 2018-06-21 23:13 | ED.VISSUMM ---
- ER Visit Summary Date of Service: 06/21/18 Chief Complaint: Alcohol withdrawal symptoms History of Present Illness: The patient is a 48 M history of alcohol abuse, anemia and OCD. Patient states that he is trying to detox himself at home he has not had any alcohol for 3 days and is going through withdrawal symptoms. States he had nausea and vomiting. No diarrhea. No melena. No hematemesis. Mild epigastric and right upper quadrant abdominal pain. No fever. He has had similar symptoms like this before but is gone through withdrawal. States he was actually admitted to [facility] 1 month ago and he believes here at [facility] also for complications of alcoholism. His only prior abdominal surgery was for prior hernia repair. Physical Examination: Middle-aged male. Vital signs are stable he is tachycardic at 136. Afebrile. Pulse ox 99% on room air no signs of hypoxia. H EENT exam unremarkable. Palindromic is members. Neck nontender no lymphadenopathy. Lungs clear to auscultation bilaterally. Heart tachycardic rate about 130 no murmur. Abdomen is soft. Mild epigastric and right upper quadrant tenderness. No rebound. No guarding. No rigidity. Nondistended. Right lower quadrant unremarkable. No signs of obstruction. Positive bowel sounds. Moving all 4 extremities. He has bilateral hand tremors. No edema. Back nontender. Neurologically is awake and alert with no focal motor deficits. Test Results: White count of 5. Hemoglobin is now 14 was previously 9. Platelet count of 142,000. Electrolytes show sodium of 129. Anion gap is 16. Creatinine of 1.7 previously was 0.9. Liver enzymes are all elevated but better than what they were before. Lipase is normal. Emergency Department Course and Treatment: Patient will be treated with a liter of normal saline, Zofran for nausea and Ativan for his withdrawal symptoms. Patient is doing well repeat exam after his IV occasions and fluids. I discussed with both he and his significant other treatment options and they both preferred that he be admitted for his withdrawal symptoms. Treatment Plan: I spoke to the hospitalist and she will be coming down to evaluate the patient for admission. Disposition: [] Impression: Acute alcohol withdrawal. History of alcoholism Chronically elevated liver enzymes Mild hyponatremia This note was generated with Watch[employer]ox[employer] software. It may contain incorrect words, spelling, and punctuation that were not noted in review of the chart prior to signing ED Disposition - Plan for ED Patient: Chief Complaint: Substance Abuse Referrals: Dagoberto Mari MD [Primary Care Provider] -
--- NOTE | 2018-06-21 23:16 | ED.DCSUM_ITS ---
- ER Visit Summary Date of Service: 06/21/18 Chief Complaint: Alcohol withdrawal symptoms History of Present Illness: The patient is a 48 M history of alcohol abuse, anemia and OCD. Patient states that he is trying to detox himself at home he has not had any alcohol for 3 days and is going through withdrawal symptoms. States he had nausea and vomiting. No diarrhea. No melena. No hematemesis. Mild epigastric and right upper quadrant abdominal pain. No fever. He has had similar symptoms like this before but is gone through withdrawal. States [facility] and he believes here at [facility] also for complications of alcoholism. His only prior abdominal surgery was for prior hernia repair. Physical Examination: Middle-aged male. Vital signs are stable he is tachycardic at 136. Afebrile. Pulse ox 99% on room air no signs of hypoxia. H EENT exam unremarkable. Palindromic is members. Neck nontender no lymphadenopathy. Lungs clear to auscultation bilaterally. Heart tachycardic rate about 130 no murmur. Abdomen is soft. Mild epigastric and right upper quadrant tenderness. No rebound. No guarding. No rigidity. Nondistended. Right lower quadrant unremarkable. No signs of obstruction. Positive bowel sounds. Moving all 4 extremities. He has bilateral hand tremors. No edema. Back nontender. Neurologically is awake and alert with no focal motor deficits. Test Results: White count of 5. Hemoglobin is now 14 was previously 9. Platelet count of 142,000. Electrolytes show sodium of 129. Anion gap is 16. Creatinine of 1.7 previously was 0.9. Liver enzymes are all elevated but better than what they were before. Lipase is normal. Emergency Department Course and Treatment: Patient will be treated with a liter of normal saline, Zofran for nausea and Ativan for his withdrawal symptoms. Patient is doing well repeat exam after his IV occasions and fluids. I discussed with both he and his significant other treatment options and they both preferred that he be admitted for his withdrawal symptoms. Treatment Plan: I spoke to the hospitalist and she will be coming down to evaluate the patient for admission. Disposition: [] Impression: Acute alcohol withdrawal. History of alcoholism Chronically elevated liver enzymes Mild hyponatremia This note was generated with [employer]olan[employer] software. It may contain incorrect words, spelling, and punctuation that were not noted in review of the chart prior to signing ED Disposition - Plan for ED Patient: Chief Complaint: Substance Abuse Referrals: Daogberto Mari MD [Primary Care Provider] -
[2018-06-21] MEDS: 0.9% Normal Saline 1,000 ML 1000 ML IV (23:22)
[2018-06-21] MEDS: Ondansetron 4 MG/2 ML Vial IV (23:22)
[2018-06-21] MEDS: LORazepam 2 MG/ML Syringe 1 MG IV (23:24)
[2018-06-21 23:25] VITALS: BP 157/90; PULSE 116; RESP 20; O2SAT 93
[2018-06-21 23:42] LABS: Absolute Lymphocyte Count 1.19 X10^3/ul (0.83-4.51); Absolute Neutrophil Count 3.8 X10^3/uL (2.0-7.7); Basophil# 0.01 X10^3/uL; Basophil% 0.2 % (0-1); Hemoglobin 14.7 g/dl (13.0-16.5); Lymphocyte # 1.19 X10^3/ul (4.0); Lymphocyte % 20.6 % (19-41); Mean Corp Hgb Conc 34.2 g/gl (32-36); Mean Corpuscular Hgb 33.9 pg (27.0-32.0); Mean Corpuscular Volume 99.3 fL (80-94); Mean Platelet Vol. 10.8 fl (6.2-12.0); Monocyte# 0.78 X10^3/uL; Monocyte% 13.5 % (0-10); Neutrophil # 3.79 X10^3/uL (2.7-7.7); Neutrophil % 65.5 % (47-70); Platelet Count 142 K/mm3 (150-450); RBC Distribution Width CV 14.4 % (11.6-14.6); RBC Distribution Width SD 51.7 fl (35.1-43.9); Red Blood Count 4.33 M/mm3 (4.6-6.2); White Blood Count 5.8 K/mm3 (4.4-11.0)
[2018-06-21 23:54] LABS: POSITIVE COUNT NO; POSITIVE DIFFERENTIAL NO; POSITIVE MORPHOLOGY NO
[2018-06-21 23:55] LABS: AST(SGOT) 219 U/L (15-37); Alanine Aminotransfer ALT/SGPT 168 U/L (16-61); Albumin, Serum 3.4 g/dL (3.2-5.0); Alkaline Phosphatase 329 U/L (45-117); Anion Gap 16 (5-15); BUN 13 mg/dL (7-18); BUN/Creat Ratio 7.6 RATIO (10-20); Bilirubin, Direct 2.94 mg/dL (0.00-0.30); Calcium,Total 8.4 mg/dL (8.5-10.1); Chloride 93 mmol/L (98-107); Creatinine, Serum 1.71 mg/dL (0.70-1.30); EST Glomerular Filtration Rate 45 mL/min (>60); Est Glom Filt Rate - Afr Amer 55 mL/min (>60); Estimated Creatinine Clearance 55.66 ml/min; Globulin 3.9 g/dL (2.2-4.2); Glucose 239 mg/dL (74-106); Lipase 108 U/L (73-393); Potassium 3.9 mmol/L (3.5-5.1); Protein, Total 7.3 g/dL (6.4-8.2); Sodium Level 129 mmol/L (136-145)
[2018-06-22] VITALS (18 sets, daily range): BP systolic 113–149; BP diastolic 73–96; PULSE 71–116; RESP 16–22; TEMP 36.3–37; O2SAT 93–96; BMI 30.3
--- NOTE | 2018-06-22 00:58 | PCM.HP.STD ---
Problem List (1) ETOH abuse Status: Acute (2) Transaminitis Status: Acute (3) DONTA (acute kidney injury) Status: Acute (4) Hyponatremia Status: Acute (5) Methamphetamine abuse Status: Chronic (6) Depression Status: Chronic Qualifiers: Depression Type: unspecified Qualified Code(s): F32.9 - Major depressive disorder, single episode, unspecified (7) HTN (hypertension) Status: Chronic Qualifiers: Hypertension type: essential hypertension Qualified Code(s): I10 - Essential (primary) hypertension (8) Tobacco use Status: Chronic History of Present Illness Date of Admission: 06/22/18 Chief Complaint: Acute EtOH Withdrawal The patient is a 48 y/o M w/ PMHx: HTN, EtOH Abuse with serial ED presentations and noted admission for withdrawal, Tobacco use history, Methamphetamine use, Anxiety and Depression w/ prior suicidal ideation visits noted who presents to the [facility] ED on 06/22/18 w/ no EtOH intake x 3 days noted acute EtOH withdrawal, worsening over the last 24 hours, following last EtOH intake nearing 3 days prior with onset of nausea, tremors, agitation, tactile disturbances. Patient interested in attaining sober status. Patient and girlfriend noted he felt unable to complete safe alcohol withdrawal regimen offered per ED at home. She notes that she is a recovering alcoholic and they have been living separately secondary to his ongoing EtOH use. In the ED work-up included T 98.4, HR 136-->108, BP 159/85-->144/96, RR 19, 96% on RA, CBC w/ WBC 5.8, Hgb 14.7, Plts 142 without marked shift, CMP Na 129, Chl 93, CO2 20, AG 16, BUN/Cr 13/1.71, glucose 239, T bili 4, D bili 2.94, AST/ALT 219/168, Alk phos 329, lipase 108. In the ED patient administered NS, zofran, ativan with improvement. Past Medical History Past Medical History (Chronic Problems): Chronic Problems HTN (hypertension) (Chronic) Tobacco use (Chronic) Depression (Chronic) Methamphetamine abuse (Chronic) Allergies amoxicillin Adverse Reaction (Verified 06/21/18 22:56) Upset Stomach Home Medications: Ambulatory Orders Medication Instructions Recorded Fluvoxamine Maleate 100 mg PO BID 30 Days #60 tab 09/17/18 Gabapentin [Neurontin] 300 mg PO TIDCM 30 Days #90 cap 05/11/18 Trazodone HCl 300 mg PO QHS PRN 30 Days #60 tab 05/11/18 Amlodipine [Norvasc] 5 mg PO DAILY 06/21/18 Thiamine HCl [Vitamin B-1] 100 mg PO DAILY 06/21/18 Surgical History: - - T+A, umbilical hernia repair. Psychiatric History: Anxiety, Depression, Prior suicide attempt Lives: Alone - His girlfriend recently moved out secondary to his ongoing EtOH abuse. Smoking Status: Current every day smoker Tobacco Use: Cigarettes Alcohol: Heavy Drugs: Marijuana, - - Methamphetamine on prior UDS, denies currently upon admission. - *Family History Maternal History Items: - - Patient denies any marked maternal family history including HD, DM, CA. Paternal History Items: Hypertension Review of Systems Constitutional: Reports: Anorexia, Malaise, Weakness, Fatigue. Denies: Chills, Fever, Weight Change HEENT: Reports: Head Aches. Denies: Sinus Congestion, Sinus Drainage Cardiovascular: Denies: Chest Pain, Palpitations Respiratory: Denies: Cough, Shortness of breath at rest, Sputum production Gastrointestinal: Reports: Abdominal Pain, Nausea, Vomiting Genitourinary: Denies: Dysuria Musculoskeletal: Reports: Joint Pain. Denies: Joint Tenderness Skin: Denies: Rash, Wounds Neurological: Reports: Tremor. Denies: Focal weakness, Numbness, Tingling Psychiatric: Reports: Anxiety, Depression. Denies: Homicidal Ideations, Suicidal Ideations Hematologic/ Lymphatic: Denies: Easy Bruising, Easy Bleeding VTE Information - Inpt Only VTE Present on Admission: No VTE Mechan Device Prophylaxis: SCD's VTE Pharm Prophylaxis ordered?: Yes Subjective: Seated upright in the ED bed, fatigued appearing, tremors. Objective: Physical Examination: General: awake, alert, oriented x 3 and cooperative, seated upright in the ED bed, ongoing withdrawal symptoms, obvious tremors, fatigued appearing. Skin: normal color, turgor, no icterus, cyanosis. HEENT: AT/NC, EOMI, marked scleral injection BL, PERRLA, severely dry MM, no carotid bruits or JVD noted. Lungs: CTA bilaterally, moderate effort, mild decrease BL bases, no rales, ronchi or wheezing. Heart: Tachycardic with regular rhythm; no gallop, rub audible. Abdomen: soft, NTTP, moderately distended, hyperactive BS, + HM. Extremities: no cyanosis, clubbing, or edema. Neurological: patient awake, alert, oriented x 3; cognitive function intact; pupils equally reactive to light and accomodation; cranial nerves II-XII grossly normal, moving all 4 extremities, no focal deficits, strength severely globally decreased secondary to acute presentation, tremors present. Psychiatric: affect appears mildly agitated, no acute evidence of depressive or anxiety feelings. - Physical Exam Vital Signs Temp Pulse Resp BP Pulse Ox 98.4 F 108 H 19 H 144/96 H 96 06/21/18 22:57 06/22/18 00:10 06/22/18 00:10 06/22/18 00:10 06/22/18 00:10 Oxygen Delivery Method Room Air Weight: 213 lb 4.05 oz Body Mass Index (BMI) 29.7 Laboratory Tests Past 24 Hrs 06/21/18 06/21/18 23:24 23:24 WBC 5.8 RBC 4.33 L Hgb 14.7 Hct 43.0 MCV 99.3 H MCH 33.9 H MCHC 34.2 RDW 14.4 RDW Differential 51.7 H Plt Count 142 L MPV 10.8 Immature Gran % (Auto) 0.200 Neut % (Auto) 65.5 Lymph % (Auto) 20.6 [place] % (Auto) 13.5 H Eos % (Auto) 0.0 Baso % (Auto) 0.2 Absolute Neuts (auto) 3.8 Absolute Lymphs (auto) 1.19 Total Counted Not Reportable Sodium 129 L Potassium 3.9 Chloride 93 L Carbon Dioxide 20.0 L Anion Gap 16 H BUN 13 Creatinine 1.71 H Estim Creat Clear Calc 55.66 Est GFR (MDRD) Af Amer 55 L Est GFR (MDRD) Non-Af 45 L BUN/Creatinine Ratio 7.6 L Glucose 239 H Calcium 8.4 L Total Bilirubin 4.00 H Direct Bilirubin 2.94 H AST 219 H ALT 168 H Alkaline Phosphatase 329 H Total Protein 7.3 Albumin 3.4 Globulin 3.9 Lipase 108 Assessment/Plan All Active Problems ETOH abuse (Acute) Transaminitis (Acute) DONTA (acute kidney injury) (Acute) Hyponatremia (Acute) Jaundice due to hepatitis (Acute) The patient is a 48 y/o M w/ PMHx: HTN, EtOH Abuse with serial ED presentations and noted admission for withdrawal, Tobacco use history, Methamphetamine use, Anxiety and Depression w/ prior suicidal ideation visits noted who presents to the [facility] ED on 06/22/18 w/ no EtOH intake x 3 days noted acute EtOH withdrawal, worsening over the last 24 hours, following last EtOH intake nearing 3 days prior. (1) Acute EtOH Withdrawal: Will admit to [facility] on telemetry, initiate and continue on tapering course of librium, may need ICU transition if not tolerated as noted ICU requirements in the past, as needed Seroquel, Catapres, Bentyl, Vistaril, IV fluids, IV antiemetics, Tylenol as needed for pain. Once patient clinically improved and completion of taper nearing will request [facility] assistance for transition to next level of rehabilitation care. Mag, phos pending. Maintain on CIWA protocol. (2) Acute kidney injury: Secondary to acute presentation #1, poor intake and GI losses. Admission BUN/Cr 13/1.71, prior baseline creatinine noted to be 0.9-1. Will hydrate, hold nephrotoxic medications and repeat chemistry in AM. (3) Hyponatremia, Hypovolemic: Secondary to acute presentation w/ dehydration/GI losses, EtOH abuse, trend CMP, continue hydration. (4) Transaminitis, Acute, Suspected: Recent admission 04/2018 with Bilirubin and AST/ALT elevated worse, hepatitis panel at that time obtained, hepatitis A Ab total positive otherwise panel negative. (5) Polysubstance Abuse, Chronic: Prior noted history of methamphetamine usage, UDS requested in addition to EtOH level. (6) Tobacco Abuse History: Quit 01/2018, encourage continued cessation. (7) Hypertension: Continue home norvasc regimen, PRN hydralazine. (8) Anxiety and Depression: Continue home psychiatric regimen, CM consulted. (9) DVT Prophylaxis: SCDs, heparin. Code Visit Inpatient E&M: 06673 Init Hosp L3
[2018-06-22 02:33] LABS: Alcohol, Blood (Medical)-Serum < 3.0 mg/dL
[2018-06-22] MEDS: 0.9% Normal Saline 1,000 ML 999 ML IV (02:55)
[2018-06-22 03:01] LABS: Bedside Glucose 123 mg/dL (70-110)
[2018-06-22 03:04] LABS: Magnesium 1.8 mg/dL (1.6-2.6); Phosphorus 1.1 mg/dL (2.5-4.9)
[2018-06-22] MEDS: Dicyclomine 10 MG Capsule 20 MG PO (03:33)
[2018-06-22] MEDS: Methocarbamol 750 MG Tablet PO (03:33)
[2018-06-22] MEDS: LORazepam 2 MG/ML Syringe IV ×2 (03:34→06:15)
[2018-06-22] MEDS: 0.9% Normal Saline 1,000 ML 150 ML IV ×3 (04:02→19:56)
[2018-06-22] MEDS: 0.9% NaCl Peripheral Flush Adult/Peds IV ×3 (04:18→06:16)
[2018-06-22 05:37] LABS: Amphetamine Urine VISTA NEGATIVE (<1000 ng/mL); Barbiturate Urine VISTA NEGATIVE (< 200 ng/mL); Benzodiazepine Urine VISTA POSITIVE (< 200 ng/mL); Cocaine Urine VISTA NEGATIVE (< 300 ng/mL); Ecstacy Urine VISTA POSITIVE (< 500 ng/mL); Methadone Urine VISTA NEGATIVE (< 300 ng/mL); PCP Urine VISTA NEGATIVE (< 25 ng/mL); THC Urine VISTA NEGATIVE (< 50 ng/mL); Vista UDS pH Range 6
[2018-06-22] MEDS: Ondansetron 4 MG/2 ML Vial IV (06:15)
[2018-06-22 06:36] LABS: Absolute Lymphocyte Count 1.48 X10^3/ul (0.83-4.51); Absolute Neutrophil Count 2.6 X10^3/uL (2.0-7.7); Basophil# 0.01 X10^3/uL; Basophil% 0.2 % (0-1); Hematocrit 39.2 % (40-54); Hemoglobin 12.9 g/dl (13.0-16.5); Lymphocyte # 1.48 X10^3/ul (4.0); Lymphocyte % 30.8 % (19-41); Mean Corp Hgb Conc 32.9 g/gl (32-36); Mean Corpuscular Hgb 33.2 pg (27.0-32.0); Mean Platelet Vol. 10.8 fl (6.2-12.0); Monocyte# 0.74 X10^3/uL; Monocyte% 15.4 % (0-10); Neutrophil # 2.55 X10^3/uL (2.7-7.7); Neutrophil % 53.2 % (47-70); Platelet Count 112 K/mm3 (150-450); RBC Distribution Width CV 14.2 % (11.6-14.6); RBC Distribution Width SD 52.1 fl (35.1-43.9); Red Blood Count 3.88 M/mm3 (4.6-6.2); White Blood Count 4.8 K/mm3 (4.4-11.0)
[2018-06-22 06:40] LABS: POSITIVE COUNT NO; POSITIVE DIFFERENTIAL NO; POSITIVE MORPHOLOGY NO
[2018-06-22 06:53] LABS: ALB/GLOB Ratio 0.9 RATIO (0.9-2.4); AST(SGOT) 172 U/L (15-37); Alanine Aminotransfer ALT/SGPT 136 U/L (16-61); Albumin, Serum 2.9 g/dL (3.2-5.0); Alkaline Phosphatase 273 U/L (45-117); BUN 9 mg/dL (7-18); BUN/Creat Ratio 7.4 RATIO (10-20); Calcium,Total 7.5 mg/dL (8.5-10.1); Chloride 99 mmol/L (98-107); Creatinine, Serum 1.22 mg/dL (0.70-1.30); EST Glomerular Filtration Rate 67 mL/min (>60); Est Glom Filt Rate - Afr Amer 81 mL/min (>60); Estimated Creatinine Clearance 75.63 ml/min; Globulin 3.3 g/dL (2.2-4.2); Glucose 169 mg/dL (74-106); Potassium 3.7 mmol/L (3.5-5.1); Protein, Total 6.2 g/dL (6.4-8.2); Sodium Level 132 mmol/L (136-145)
[2018-06-22 06:54] LABS: Anion Gap 10 (5-15)
[2018-06-22] MEDS: Folic Acid 1 MG Tablet PO (07:53)
[2018-06-22] MEDS: Thiamine Hydrochloride 100 MG Tablet PO (07:53)
[2018-06-22] MEDS: chlordiazePOXIDE 25 MG Capsule PO ×3 (07:53→18:21)
[2018-06-22] MEDS: Multivitamins,Therapeutic Tablet 1 TABLET PO (07:53)
[2018-06-22] MEDS: Gabapentin 300 MG Capsule PO ×3 (07:53→16:38)
[2018-06-22] MEDS: amLODIPine 5 MG Tablet PO (10:01)
[2018-06-22] MEDS: Heparin Injection (Vial) 5,000 UNIT/ML VIAL 5000 UNIT SC ×2 (10:01→22:12)
[2018-06-22] MEDS: hydrOXYzine PAM 25 MG Capsule 50 MG PO (10:08)
--- NOTE | 2018-06-22 10:27 | PCM.PN.HOSP ---
Patient Problems: Active and Suspected Problems Alcohol withdrawal (Acute) Subjective: Feeling better but still tremulous at this time. Vitals/I&O's: Vital Signs Temp Pulse Resp BP Pulse Ox 36.5 C L 116 H 16 128/83 H 96 06/22/18 09:59 06/22/18 09:59 06/22/18 09:59 06/22/18 09:59 06/22/18 09:59 Oxygen Delivery Method Room Air Weight: 95.8 kg Body Mass Index (BMI) 30.3 Intake and Output for Last 24 Hours 06/20/18 06/21/18 06/22/18 23:59 23:59 23:59 Intake Total 1602 / 1602 Output Total 750 / 750 Balance 852 / 852 General: Alert, No apparent distress, - - Slightly groggy HEENT: Atraumatic, Normocephalic Oral: Moist Mucosa, No Gingival or Mucosal Lesions/ Ulcerations Neck: No Nodes, Thyroid Normal Size and Texture Lungs: Clear to auscultation, Normal air movement, No rhonchi, No wheeze Cardiovascular: Regular rate, Regular Rhythm, Normal S1, Normal S2, No murmurs Abdomen: Bowel Sounds Present, Soft, Non Tender, Non-Distended Extremities: No edema, No Calf Tenderness Skin: No rashes, No breakdown Psych/Mental Status: Normal Affect, Appropriate Laboratory Results 06/21/18 23:24: WBC 5.8, RBC 4.33 L, Hgb 14.7, Hct 43.0, MCV 99.3 H, MCH 33.9 H, MCHC 34.2, RDW 14.4, RDW Differential 51.7 H, Plt Count 142 L, MPV 10.8, Immature Gran % (Auto) 0.200, Neut % (Auto) 65.5, Lymph % (Auto) 20.6, [place] % (Auto) 13.5 H, Eos % (Auto) 0.0, Baso % (Auto) 0.2, Absolute Neuts (auto) 3.8, Absolute Lymphs (auto) 1.19, Total Counted Not Reportable 06/21/18 23:24: Sodium 129 L, Potassium 3.9, Chloride 93 L, Carbon Dioxide 20.0 L, Anion Gap 16 H, BUN 13, Creatinine 1.71 H, Estim Creat Clear Calc 55.66, Est GFR (MDRD) Af Amer 55 L, Est GFR (MDRD) Non-Af 45 L, BUN/Creatinine Ratio 7.6 L, Glucose 239 H, Calcium 8.4 L, Total Bilirubin 4.00 H, Direct Bilirubin 2.94 H, AST 219 H, ALT 168 H, Alkaline Phosphatase 329 H, Total Protein 7.3, Albumin 3.4, Globulin 3.9, Lipase 108 06/21/18 23:24: Phosphorus 1.1 L*, Magnesium 1.8 06/21/18 23:24: Ethyl Alcohol < 3.0 06/22/18 02:43: POC Glucose 123 H 06/22/18 05:10: Urine Opiates Screen NEGATIVE, Urine Methadone Screen NEGATIVE, Ur Barbiturates Screen NEGATIVE, Ur Phencyclidine Scrn NEGATIVE, Ur Amphetamines Screen NEGATIVE, U Methamphetamin-MDMA POSITIVE H, U Benzodiazepines Scrn POSITIVE H, Urine Cocaine Screen NEGATIVE, U Cannabinoids Screen NEGATIVE, Ur Drug Screen Comment 06/22/18 06:05: WBC 4.8, RBC 3.88 L, Hgb 12.9 L, Hct 39.2 L, MCV 101.0 H, MCH 33.2 H, MCHC 32.9, RDW 14.2, RDW Differential 52.1 H, Plt Count 112 L, MPV 10.8, Immature Gran % (Auto) 0.400, Neut % (Auto) 53.2, Lymph % (Auto) 30.8, [place] % (Auto) 15.4 H, Eos % (Auto) 0.0, Baso % (Auto) 0.2, Absolute Neuts (auto) 2.6, Absolute Lymphs (auto) 1.48, Total Counted Not Reportable 06/22/18 06:05: Sodium 132 L, Potassium 3.7, Chloride 99, Carbon Dioxide 23.0, Anion Gap 10, BUN 9, Creatinine 1.22, Estim Creat Clear Calc 75.63, Est GFR (MDRD) Af Amer 81, Est GFR (MDRD) Non-Af 67, BUN/Creatinine Ratio 7.4 L, Glucose 169 H, Calcium 7.5 L, Total Bilirubin 3.10 H, AST 172 H, ALT 136 H, Alkaline Phosphatase 273 H, Total Protein 6.2 L, Albumin 2.9 L, Globulin 3.3, Albumin/Globulin Ratio 0.9 Current Medications Acetaminophen (Tylenol) 500 mg PO Q4H PRN PRN PRN Reason: Temp > 100.4 F Al Hydroxide/Mg Hydroxide (Mylanta Ii) 30 ml PO Q6H PRN PRN PRN Reason: Gastric burning Amlodipine Besylate (Norvasc) 5 mg PO DAILY [facility] Last Admin: 06/22/18 10:01 Dose: 5 mg Bisacodyl (Dulcolax) 10 mg RECTAL DAILY PRN PRN PRN Reason: Constipation Chlordiazepoxide (Librium) 50 mg PO Q6H [facility]; Taper Stop: 06/25/18 03:29 Last Admin: 06/22/18 07:53 Dose: 50 mg Dicyclomine HCl (Bentyl) 20 mg PO Q6H PRN PRN PRN Reason: abdominal discomfort Last Admin: 06/22/18 03:33 Dose: 20 mg Fluvoxamine Maleate (Luvox) 100 mg PO BID [facility] Last Admin: 06/22/18 07:53 Dose: 1 mg Gabapentin (Neurontin) 300 mg PO TIDCM [facility] Last Admin: 06/22/18 07:53 Dose: 300 mg Heparin Sodium (Porcine) (Heparin Na) 5,000 unit SC Q12 [facility] Last Admin: 06/22/18 10:01 Dose: 5,000 unit Hydralazine HCl (Apresoline Iv) 10 mg IV Q4H PRN PRN PRN Reason: SBP > 160 Hydroxyzine Pamoate (Vistaril Pamoate Capsule) 50 mg PO Q6H PRN PRN PRN Reason: Mild Anxiety (score 1/3) Last Admin: 06/22/18 10:08 Dose: 50 mg Sodium Chloride () 1,000 mls @ 150 mls/hr IV .[id number] [facility] Last Admin: 06/22/18 04:02 Dose: 150 mls/hr Sodium Chloride () 250 mls @ 15 mls/hr IV .[id number] PRN PRN Reason: SALINE FLUSH Ibuprofen (Motrin) 600 mg PO Q8H PRN PRN PRN Reason: Mild-Moderate Pain (1-5/10) Loperamide HCl (Imodium) 2 - 4 mg PO UD PRN PRN Reason: LOOSE STOOLS Lorazepam (Ativan) 2 mg PO Q2H PRN PRN; Protocol PRN Reason: CIWA score > 8 but <15 Lorazepam (Ativan) 2 mg IV Q2H PRN PRN; Protocol PRN Reason: CIWA score > 8 but <15 Last Admin: 06/22/18 06:15 Dose: 2 mg Lorazepam (Ativan) 2 mg IV X1 PRN PRN Reason: Seizure Lorazepam (Ativan) 2 mg PO UD PRN; Protocol PRN Reason: CIWA score >/=15. Lorazepam (Ativan) 2 mg IV UD PRN; Protocol PRN Reason: CIWA score >/=15. Magnesium Hydroxide (Milk Of Magnesia) 30 ml PO DAILY PRN PRN PRN Reason: Constipation Methocarbamol (Methocarbamol) 750 mg PO Q6H PRN PRN PRN Reason: Muscle Aches Last Admin: 06/22/18 03:33 Dose: 750 mg Multivitamins ([facility]ivitamin) [facility] Last Admin: 06/22/18 07:53 Dose: 1 tablet Ondansetron HCl (Zofran) 4 mg IV Q8H PRN PRN PRN Reason: NAUSEA Last Admin: 06/22/18 06:15 Dose: 4 mg Promethazine HCl (Phenergan) 12.5 mg IV Q6H PRN PRN PRN Reason: NAUSEA/VOMITING Quetiapine Fumarate (Seroquel) 25 mg PO Q6H PRN PRN PRN Reason: agitation, anxiety Senna (Senokot) 1 tablet PO QHS PRN PRN Reason: Constipation Sodium Chloride () 5 - 30 ml IV UD PRN PRN Reason: SALINE FLUSH Last Admin: 06/22/18 06:16 Dose: 10 ml Thiamine HCl (Vitamin B1) [facility] Last Admin: 06/22/18 07:53 Dose: 100 mg Trazodone HCl (Desyrel) 300 mg PO QHS PRN PRN Medical Necessity - Tobacco Use Smoking Status: Former smoker Tobacco Use: Non-smoker Assessment/Plan All Active Problems Alcohol withdrawal (Acute) ETOH abuse (Acute) Transaminitis (Acute) DONTA (acute kidney injury) (Acute) Hyponatremia (Acute) Jaundice due to hepatitis (Acute) 1. Acute alcohol withdrawal Patient attempted to quit cold turkey and as outpatient but after about 3 days patient just became worse. Subjectively, patient is feeling better at this time. Patient is on Librium taper plus as needed Ativan. Continue with thiamine and folate was in the hospital. With transition that over to a multivitamin as outpatient. Try to address patient's issues in regards to him relapsing. 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 Discussed with patient that that accessibility is always can be an issue even if he does move but having support networks in place will certainly help whether that would be through an organization such as Alcoholics Anonymous or family. Patient expressing that he did not appreciate Alcoholics Anonymous as it really was not effective for him but try to emphasize the need for support if this that or some other way. 2. DVT prophylaxis with heparin Code Visit Inpatient E&M: 61971 Subs Hosp L2
--- NOTE | 2018-06-22 10:31 | PN_ITS ---
Patient Problems: Active and Suspected Problems Alcohol withdrawal (Acute) Subjective: Feeling better but still tremulous at this time. Vitals/I&O's: Vital Signs Temp Pulse Resp BP Pulse Ox 36.5 C L 116 H 16 128/83 H 96 06/22/18 09:59 06/22/18 09:59 06/22/18 09:59 06/22/18 09:59 06/22/18 09:59 Oxygen Delivery Method Room Air Weight: 95.8 kg Body Mass Index (BMI) 30.3 Intake and Output for Last 24 Hours 06/20/18 06/21/18 06/22/18 23:59 23:59 23:59 Intake Total 1602 / 1602 Output Total 750 / 750 Balance 852 / 852 General: Alert, No apparent distress, - - Slightly groggy HEENT: Atraumatic, Normocephalic Oral: Moist Mucosa, No Gingival or Mucosal Lesions/ Ulcerations Neck: No Nodes, Thyroid Normal Size and Texture Lungs: Clear to auscultation, Normal air movement, No rhonchi, No wheeze Cardiovascular: Regular rate, Regular Rhythm, Normal S1, Normal S2, No murmurs Abdomen: Bowel Sounds Present, Soft, Non Tender, Non-Distended Extremities: No edema, No Calf Tenderness Skin: No rashes, No breakdown Psych/Mental Status: Normal Affect, Appropriate Laboratory Results 06/21/18 23:24: WBC 5.8, RBC 4.33 L, Hgb 14.7, Hct 43.0, MCV 99.3 H, MCH 33.9 H, MCHC 34.2, RDW 14.4, RDW Differential 51.7 H, Plt Count 142 L, MPV 10.8, Immature Gran % (Auto) 0.200, Neut % (Auto) 65.5, Lymph % (Auto) 20.6, [place] % (Auto) 13.5 H, Eos % (Auto) 0.0, Baso % (Auto) 0.2, Absolute Neuts (auto) 3.8, Absolute Lymphs (auto) 1.19, Total Counted Not Reportable 06/21/18 23:24: Sodium 129 L, Potassium 3.9, Chloride 93 L, Carbon Dioxide 20.0 L, Anion Gap 16 H, BUN 13, Creatinine 1.71 H, Estim Creat Clear Calc 55.66, Est GFR (MDRD) Af Amer 55 L, Est GFR (MDRD) Non-Af 45 L, BUN/Creatinine Ratio 7.6 L, Glucose 239 H, Calcium 8.4 L, Total Bilirubin 4.00 H, Direct Bilirubin 2.94 H, AST 219 H, ALT 168 H, Alkaline Phosphatase 329 H, Total Protein 7.3, Albumin 3.4, Globulin 3.9, Lipase 108 06/21/18 23:24: Phosphorus 1.1 L*, Magnesium 1.8 06/21/18 23:24: Ethyl Alcohol < 3.0 06/22/18 02:43: POC Glucose 123 H 06/22/18 05:10: Urine Opiates Screen NEGATIVE, Urine Methadone Screen NEGATIVE, Ur Barbiturates Screen NEGATIVE, Ur Phencyclidine Scrn NEGATIVE, Ur Amphetamines Screen NEGATIVE, U Methamphetamin-MDMA POSITIVE H, U Benzodiazepines Scrn POSITIVE H, Urine Cocaine Screen NEGATIVE, U Cannabinoids Screen NEGATIVE, Ur Drug Screen Comment 06/22/18 06:05: WBC 4.8, RBC 3.88 L, Hgb 12.9 L, Hct 39.2 L, MCV 101.0 H, MCH 33.2 H, MCHC 32.9, RDW 14.2, RDW Differential 52.1 H, Plt Count 112 L, MPV 10.8, Immature Gran % (Auto) 0.400, Neut % (Auto) 53.2, Lymph % (Auto) 30.8, [place] % (Auto) 15.4 H, Eos % (Auto) 0.0, Baso % (Auto) 0.2, Absolute Neuts (auto) 2.6, Absolute Lymphs (auto) 1.48, Total Counted Not Reportable 06/22/18 06:05: Sodium 132 L, Potassium 3.7, Chloride 99, Carbon Dioxide 23.0, Anion Gap 10, BUN 9, Creatinine 1.22, Estim Creat Clear Calc 75.63, Est GFR (MDRD) Af Amer 81, Est GFR (MDRD) Non-Af 67, BUN/Creatinine Ratio 7.4 L, Glucose 169 H, Calcium 7.5 L, Total Bilirubin 3.10 H, AST 172 H, ALT 136 H, Alkaline Phosphatase 273 H, Total Protein 6.2 L, Albumin 2.9 L, Globulin 3.3, Albumin/Globulin Ratio 0.9 Current Medications Acetaminophen (Tylenol) 500 mg PO Q4H PRN PRN PRN Reason: Temp > 100.4 F Al Hydroxide/Mg Hydroxide (Mylanta Ii) 30 ml PO Q6H PRN PRN PRN Reason: Gastric burning Amlodipine Besylate (Norvasc) 5 mg PO DAILY [facility] Last Admin: 06/22/18 10:01 Dose: 5 mg Bisacodyl (Dulcolax) 10 mg RECTAL DAILY PRN PRN PRN Reason: Constipation Chlordiazepoxide (Librium) 50 mg PO Q6H [facility]; Taper Stop: 06/25/18 03:29 Last Admin: 06/22/18 07:53 Dose: 50 mg Dicyclomine HCl (Bentyl) 20 mg PO Q6H PRN PRN PRN Reason: abdominal discomfort Last Admin: 06/22/18 03:33 Dose: 20 mg Fluvoxamine Maleate (Luvox) 100 mg PO BID [facility] Last Admin: 06/22/18 07:53 Dose: 1 mg Gabapentin (Neurontin) 300 mg PO TIDCM [facility] Last Admin: 06/22/18 07:53 Dose: 300 mg Heparin Sodium (Porcine) (Heparin Na) 5,000 unit SC Q12 [facility] Last Admin: 06/22/18 10:01 Dose: 5,000 unit Hydralazine HCl (Apresoline Iv) 10 mg IV Q4H PRN PRN PRN Reason: SBP > 160 Hydroxyzine Pamoate (Vistaril Pamoate Capsule) 50 mg PO Q6H PRN PRN PRN Reason: Mild Anxiety (score 1/3) Last Admin: 06/22/18 10:08 Dose: 50 mg Sodium Chloride () 1,000 mls @ 150 mls/hr IV .Q6H40M [facility] Last Admin: 06/22/18 04:02 Dose: 150 mls/hr Sodium Chloride () 250 mls @ 15 mls/hr IV .[id number] PRN PRN Reason: SALINE FLUSH Ibuprofen (Motrin) 600 mg PO Q8H PRN PRN PRN Reason: Mild-Moderate Pain (1-5/10) Loperamide HCl (Imodium) 2 - 4 mg PO UD PRN PRN Reason: LOOSE STOOLS Lorazepam (Ativan) 2 mg PO Q2H PRN PRN; Protocol PRN Reason: CIWA score > 8 but <15 Lorazepam (Ativan) 2 mg IV Q2H PRN PRN; Protocol PRN Reason: CIWA score > 8 but <15 Last Admin: 06/22/18 06:15 Dose: 2 mg Lorazepam (Ativan) 2 mg IV X1 PRN PRN Reason: Seizure Lorazepam (Ativan) 2 mg PO UD PRN; Protocol PRN Reason: CIWA score >/=15. Lorazepam (Ativan) 2 mg IV UD PRN; Protocol PRN Reason: CIWA score >/=15. Magnesium Hydroxide (Milk Of Magnesia) 30 ml PO DAILY PRN PRN PRN Reason: Constipation Methocarbamol (Methocarbamol) 750 mg PO Q6H PRN PRN PRN Reason: Muscle Aches Last Admin: 06/22/18 03:33 Dose: 750 mg Multivitamins ([facility]ivitamin) [facility] Last Admin: 06/22/18 07:53 Dose: 1 tablet Ondansetron HCl (Zofran) 4 mg IV Q8H PRN PRN PRN Reason: NAUSEA Last Admin: 06/22/18 06:15 Dose: 4 mg Promethazine HCl (Phenergan) 12.5 mg IV Q6H PRN PRN PRN Reason: NAUSEA/VOMITING Quetiapine Fumarate (Seroquel) 25 mg PO Q6H PRN PRN PRN Reason: agitation, anxiety Senna (Senokot) 1 tablet PO QHS PRN PRN Reason: Constipation Sodium Chloride () 5 - 30 ml IV UD PRN PRN Reason: SALINE FLUSH Last Admin: 06/22/18 06:16 Dose: 10 ml Thiamine HCl (Vitamin B1) [facility] Last Admin: 06/22/18 07:53 Dose: 100 mg Trazodone HCl (Desyrel) 300 mg PO QHS PRN PRN Medical Necessity - Tobacco Use Smoking Status: Former smoker Tobacco Use: Non-smoker Assessment/Plan All Active Problems Alcohol withdrawal (Acute) ETOH abuse (Acute) Transaminitis (Acute) DONTA (acute kidney injury) (Acute) Hyponatremia (Acute) Jaundice due to hepatitis (Acute) 1. Acute alcohol withdrawal * Patient attempted to quit cold turkey and as outpatient but after about 3 days patient just became worse. * Subjectively, patient is feeling better at this time. Patient is on Librium taper plus as needed Ativan. * Continue with thiamine and folate was in the hospital. With transition that over to a multivitamin as outpatient. * Try to address patient's issues in regards to him relapsing. 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 Discussed with patient that that accessibility is always can be an issue even if he does move but having support networks in place will certainly help whether that would be through an organization such as Alcoholics Anonymous or family. Patient expressing that he did not appreciate Alcoholics Anonymous as it really was not effective for him but try to emphasize the need for support if this that or some other way. 2. DVT prophylaxis with heparin Code Visit Inpatient E&M: 10206 Subs Hosp L2
--- NOTE | 2018-06-22 12:12 | CASEMGMT ---
Addendum entered by Lynn Orellana 06/22/18 13:17: Roxanne Kaur from [place] spoke with this worker. Per Roxanne Kaur she provided pt with inpatient, outpatient, alcohol anonymous resources. Roxanne Kaur states LAURA will continue to work with pt and assist with discharge plans. Original Note: Social Work Note SW placed a call to Roxanne Kaur with [facility]. Per Roxanne, Rai met with pt and pt is interested in inpatient rehab at discharge. Rai provided pt with resources and [facility] was going to check with pt later today to review options for pt. Roxanne Kaur states she will update this worker when she is able to. Lynn Orellana GATEHOUSE ATTENDANT, SOA ENGINEER
[2018-06-22] MEDS: fluvoxaMINE Maleate 50 MG Tablet 100 MG PO ×2 (12:53→22:12)
--- NOTE | 2018-06-22 15:13 | NURSING ---
Received call from Sasha Holden, pt's HCPOA which is on file. Ms. Holden has questions regarding pt's plan for discharge. Nurse calls Roxanne Kaur at [phone] since she provided options of inpatient, outpatient, and alcohol anonymous and provided contact number for Ms. Holden . Roxanne Kaur agrees to call HCPOA even though pt. is not enrolled in the [facility] program.
[2018-06-22] MEDS: LORazepam 1 MG Tablet 2 MG PO ×2 (16:37→22:39)
[2018-06-22] MEDS: Acetaminophen 500 MG Tablet PO (16:38)
[2018-06-23] VITALS (11 sets, daily range): BP systolic 122–133; BP diastolic 63–86; PULSE 79–101; RESP 16–18; TEMP 36.6–36.9; O2SAT 96–98
[2018-06-23] MEDS: 0.9% Normal Saline 1,000 ML 150 ML IV ×4 (02:34→23:30)
[2018-06-23] MEDS: chlordiazePOXIDE 25 MG Capsule PO ×3 (02:35→19:40)
[2018-06-23] MEDS: Multivitamins,Therapeutic Tablet 1 TABLET PO (08:18)
[2018-06-23] MEDS: Gabapentin 300 MG Capsule PO ×3 (08:18→17:17)
[2018-06-23] MEDS: Thiamine Hydrochloride 100 MG Tablet PO (08:18)
[2018-06-23] MEDS: Folic Acid 1 MG Tablet PO (08:18)
[2018-06-23 08:32] LABS: Anion Gap 6 (5-15); BUN 5 mg/dL (7-18); Calcium,Total 7.6 mg/dL (8.5-10.1); Chloride 108 mmol/L (98-107); Creatinine, Serum 0.84 mg/dL (0.70-1.30); EST Glomerular Filtration Rate 103 mL/min (>60); Est Glom Filt Rate - Afr Amer 125 mL/min (>60); Estimated Creatinine Clearance 109.84 ml/min; Glucose 76 mg/dL (74-106); Potassium 3.9 mmol/L (3.5-5.1); Sodium Level 141 mmol/L (136-145)
--- NOTE | 2018-06-23 08:41 | PN_ITS ---
Patient Problems: Active and Suspected Problems Alcohol withdrawal (Acute) Subjective: Feeling better. No hallucinations. Less tremulousness. Vitals/I&O's: Vital Signs Temp Pulse Resp BP Pulse Ox 36.8 C 79 18 122/63 H 96 06/23/18 02:00 06/23/18 04:31 06/23/18 02:00 06/23/18 02:00 06/23/18 02:00 Oxygen Delivery Method Room Air Weight: 95.8 kg Body Mass Index (BMI) 30.3 Intake and Output for Last 24 Hours 06/21/18 06/22/18 06/23/18 23:59 23:59 23:59 Intake Total 5785 / 5785 2175 / 2175 Output Total 750 / 750 Balance 5035 / 5035 2175 / 2175 General: Alert, No apparent distress, - - Groggy. Afebrile. HEENT: Atraumatic, Normocephalic Oral: Moist Mucosa, No Gingival or Mucosal Lesions/ Ulcerations Neck: No Nodes, Thyroid Normal Size and Texture Lungs: Clear to auscultation, Normal air movement, No rhonchi, No wheeze Cardiovascular: Regular rate, Regular Rhythm, Normal S1, Normal S2, No murmurs Abdomen: Bowel Sounds Present, Soft, Non Tender, Non-Distended, No Hepato- splenomegaly Extremities: No edema, No Calf Tenderness Laboratory Results 06/23/18 07:36: Sodium 141, Potassium 3.9, Chloride 108 H, Carbon Dioxide 27.0, Anion Gap 6, BUN 5 L, Creatinine 0.84, Estim Creat Clear Calc 109.84, Est GFR (MDRD) Af Amer 125, Est GFR (MDRD) Non-Af 103, BUN/Creatinine Ratio 6.0 L, Glucose 76, Calcium 7.6 L, Phosphorus 2.0 L Current Medications Acetaminophen (Tylenol) 500 mg PO Q4H PRN PRN PRN Reason: Temp > 100.4 F Last Admin: 06/22/18 16:38 Dose: 500 mg Al Hydroxide/Mg Hydroxide (Mylanta Ii) 30 ml PO Q6H PRN PRN PRN Reason: Gastric burning Amlodipine Besylate (Norvasc) 5 mg PO DAILY [facility] Last Admin: 06/22/18 10:01 Dose: 5 mg Bisacodyl (Dulcolax) 10 mg RECTAL DAILY PRN PRN PRN Reason: Constipation Chlordiazepoxide (Librium) 50 mg PO Q8H [facility]; Taper Stop: 06/25/18 03:29 Last Admin: 06/23/18 02:35 Dose: 50 mg Dicyclomine HCl (Bentyl) 20 mg PO Q6H PRN PRN PRN Reason: abdominal discomfort Last Admin: 06/22/18 03:33 Dose: 20 mg Fluvoxamine Maleate (Luvox) 100 mg PO BID [facility] Last Admin: 06/22/18 22:12 Dose: 100 mg Folic Acid (Folic Acid) 1 mg PO DAILYCM [facility] Last Admin: 06/23/18 08:18 Dose: 1 mg Gabapentin (Neurontin) 300 mg PO TIDCM [facility] Last Admin: 06/23/18 08:18 Dose: 300 mg Heparin Sodium (Porcine) (Heparin Na) 5,000 unit SC Q12 [facility] Last Admin: 06/22/18 22:12 Dose: 5,000 unit Hydralazine HCl (Apresoline Iv) 10 mg IV Q4H PRN PRN PRN Reason: SBP > 160 Hydroxyzine Pamoate (Vistaril Pamoate Capsule) 50 mg PO Q6H PRN PRN PRN Reason: Mild Anxiety (score 1/3) Last Admin: 06/22/18 10:08 Dose: 50 mg Sodium Chloride () 1,000 mls @ 150 mls/hr IV .Q6H40M [facility] Last Admin: 06/23/18 02:34 Dose: 150 mls/hr Sodium Chloride () 250 mls @ 15 mls/hr IV .[id number] PRN PRN Reason: SALINE FLUSH Ibuprofen (Motrin) 600 mg PO Q8H PRN PRN PRN Reason: Mild-Moderate Pain (1-5/10) Loperamide HCl (Imodium) 2 - 4 mg PO UD PRN PRN Reason: LOOSE STOOLS Lorazepam (Ativan) 2 mg PO Q2H PRN PRN; Protocol PRN Reason: CIWA score > 8 but <15 Last Admin: 06/22/18 22:39 Dose: 2 mg Lorazepam (Ativan) 2 mg IV Q2H PRN PRN; Protocol PRN Reason: CIWA score > 8 but <15 Last Admin: 06/22/18 06:15 Dose: 2 mg Lorazepam (Ativan) 2 mg IV X1 PRN PRN Reason: Seizure Lorazepam (Ativan) 2 mg PO UD PRN; Protocol PRN Reason: CIWA score >/=15. Lorazepam (Ativan) 2 mg IV UD PRN; Protocol PRN Reason: CIWA score >/=15. Magnesium Hydroxide (Milk Of Magnesia) 30 ml PO DAILY PRN PRN PRN Reason: Constipation Methocarbamol (Methocarbamol) 750 mg PO Q6H PRN PRN PRN Reason: Muscle Aches Last Admin: 06/22/18 03:33 Dose: 750 mg [facility]) [facility] Last Admin: 06/23/18 08:18 Dose: 1 tablet Ondansetron HCl (Zofran) 4 mg IV Q8H PRN PRN PRN Reason: NAUSEA Last Admin: 06/22/18 06:15 Dose: 4 mg Promethazine HCl (Phenergan) 12.5 mg IV Q6H PRN PRN PRN Reason: NAUSEA/VOMITING Quetiapine Fumarate (Seroquel) 25 mg PO Q6H PRN PRN PRN Reason: agitation, anxiety Senna (Senokot) 1 tablet PO QHS PRN PRN Reason: Constipation Sodium Chloride () 5 - 30 ml IV UD PRN PRN Reason: SALINE FLUSH Last Admin: 06/22/18 06:16 Dose: 10 ml Thiamine HCl ([facility]itamin B1) [facility] Last Admin: 06/23/18 08:18 Dose: 100 mg Trazodone HCl (Desyrel) 300 mg PO QHS PRN PRN Medical Necessity - Tobacco Use Smoking Status: Former smoker Tobacco Use: Non-smoker Assessment/Plan All Active Problems Alcohol withdrawal (Acute) ETOH abuse (Acute) Transaminitis (Acute) DONTA (acute kidney injury) (Acute) Hyponatremia (Acute) Jaundice due to hepatitis (Acute) 1. Acute alcohol withdrawal * Patient attempted to quit cold turkey and as outpatient but after about 3 days patient just became worse. * Subjectively, patient is feeling better at this time. Patient is on Librium taper plus as needed Ativan. * Continue with thiamine and folate was in the hospital. With transition that over to a multivitamin as outpatient. * Try to address patient's issues in regards to him relapsing. 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 Discussed with patient that that accessibility is always can be an issue even if he does move but having support networks in place will certainly help whether that would be through an organization such as Alcoholics Anonymous or family. Patient expressing that he did not appreciate Alcoholics Anonymous as it really was not effective for him but try to emphasize the need for support if this that or some other way. * Dissipate discharge in next 24-48 hours. 2. Hypophosphatemia * Replace. 3. DVT prophylaxis with heparin Code Visit Inpatient E&M: 36562 Subs Hosp L2
[2018-06-23] MEDS: Na Biphos/Potassium Phosphate PACKET 1 PACKET PO ×3 (10:31→17:17)
[2018-06-23] MEDS: Heparin Injection (Vial) 5,000 UNIT/ML VIAL 5000 UNIT SC ×2 (10:31→21:58)
[2018-06-23] MEDS: amLODIPine 5 MG Tablet PO (10:31)
[2018-06-23] MEDS: fluvoxaMINE Maleate 50 MG Tablet 100 MG PO ×2 (10:32→21:58)
--- NOTE | 2018-06-23 11:27 | NURSING ---
PT IN ROOM RESTING HINDU VISITORS IN ROOM SEEING PT AND TRYING TO ASSIST WITH INPATIENT REHAB WITH MEDICATION ADMINISTRATION. PER STEP MOM PT HAS BEEN IN SEVERAL INPATIENT REHABS. PT HAS BEEN LIVING ON HIS OWN AND IS UNABLE TO FUNCTION. HE IS NON COMPLIANT WITH HIS MEDICATION ROUTINE. SHE ALSO STATES THAT PT OCD NEEDS ADDRESSING THAT HE TAKES MEDS BUT THEY ARE NOT WORKING. WOULD LIKE CASE MANAGEMENT TO LOOK INTO ASSIST WITH INPATIENT REHAB WHERE HE WILL TAKE HIS MEDICATIONS PRESCRIBED.
--- NOTE | 2018-06-23 15:12 | CASEMGMT ---
Social Work Note Pt's Throw Out Clerk met with this worker in the hallway. Pt's Throw Out Clerk states that she spent much time with pt today trying to help pt get into inpatient rehab at discharge. Pt's Throw Out Clerk states pt has called [facility] and they have a bed on hold for pt once he discharges. Pt's Throw Out Clerk states that pt will need transportation to [facility] at discharge and she may be able to provide transportation or pt's step mom Sasha would be able to provide transportation. SW met with pt. SW introduced self and role at [facility]. Pt is alert and orientated x4. Pt confirms that he has called [facility] and they will have a bed on hold for him when he discharges. Pt informed this worker that [facility] is a nine month program. Pt states that that is the longest he has been at a program. SW offered support to pt and explained that it might be what the pt needs right now to become sober and stay sober. Pt states understanding. Plan: Pt has arranged for himself to go to [facility] at discharge for inpatient rehab Lynn Orellana NEWSPAPER REPORTER, THEATER TECHNICIAN
[2018-06-23] MEDS: Ibuprofen 600 MG Tablet PO (21:57)
[2018-06-24] VITALS (11 sets, daily range): BP systolic 120–138; BP diastolic 77–88; PULSE 70–93; RESP 16–20; TEMP 36.3–37.1; O2SAT 96–99
[2018-06-24] MEDS: traZODone 100 MG Tablet 300 MG PO (00:57)
[2018-06-24] MEDS: chlordiazePOXIDE 25 MG Capsule PO ×2 (04:21→16:07)
[2018-06-24] MEDS: 0.9% NaCl Peripheral Flush Adult/Peds IV (06:05)
[2018-06-24] MEDS: 0.9% Normal Saline 1,000 ML 150 ML IV ×3 (06:05→20:49)
[2018-06-24 07:06] LABS: Anion Gap 8 (5-15); BUN 6 mg/dL (7-18); BUN/Creat Ratio 7.4 RATIO (10-20); Calcium,Total 8.1 mg/dL (8.5-10.1); Chloride 109 mmol/L (98-107); Creatinine, Serum 0.82 mg/dL (0.70-1.30); EST Glomerular Filtration Rate 107 mL/min (>60); Est Glom Filt Rate - Afr Amer 129 mL/min (>60); Estimated Creatinine Clearance 112.52 ml/min; Glucose 87 mg/dL (74-106); Phosphorus 3.1 mg/dL (2.5-4.9); Potassium 3.8 mmol/L (3.5-5.1); Sodium Level 143 mmol/L (136-145)
[2018-06-24] MEDS: Folic Acid 1 MG Tablet PO (08:16)
[2018-06-24] MEDS: Gabapentin 300 MG Capsule PO ×3 (08:16→16:07)
[2018-06-24] MEDS: Multivitamins,Therapeutic Tablet 1 TABLET PO (08:16)
[2018-06-24] MEDS: QUEtiapine 25 MG Tablet PO (08:16)
[2018-06-24] MEDS: Thiamine Hydrochloride 100 MG Tablet PO (08:17)
--- NOTE | 2018-06-24 08:54 | PCM.PN.HOSP ---
Patient Problems: Active and Suspected Problems Alcohol withdrawal (Acute) Subjective: Still tremulous. Anxious. No hallucinations. Vitals/I&O's: Vital Signs Temp Pulse Resp BP Pulse Ox 36.6 C 70 20 H 127/83 H 96 06/24/18 06:08 06/24/18 07:31 06/24/18 06:08 06/24/18 06:08 06/24/18 06:08 Oxygen Delivery Method Room Air Weight: 95.8 kg Body Mass Index (BMI) 30.3 Intake and Output for Last 24 Hours 06/22/18 06/23/18 06/24/18 23:59 23:59 23:59 Intake Total 5785 / 5785 7055 / 7055 893 / 893 Output Total 750 / 750 Balance 5035 / 5035 7055 / 7055 893 / 893 General: Alert, No apparent distress, - - slightly groggy. HEENT: Atraumatic, Normocephalic Oral: Moist Mucosa, No Gingival or Mucosal Lesions/ Ulcerations Neck: No Nodes, Thyroid Normal Size and Texture Lungs: Clear to auscultation, Normal air movement, No rhonchi, No wheeze, No rales Cardiovascular: Regular rate, Regular Rhythm, Normal S1, Normal S2, No murmurs Abdomen: Bowel Sounds Present, Soft, Non Tender, Non-Distended, No Hepato-splenomegaly Extremities: No edema, No Calf Tenderness Skin: No rashes, No breakdown Psych/Mental Status: Normal Affect, Appropriate Laboratory Results 06/24/18 06:28: Sodium 143, Potassium 3.8, Chloride 109 H, Carbon Dioxide 26.0, Anion Gap 8, BUN 6 L, Creatinine 0.82, Estim Creat Clear Calc 112.52, Est GFR (MDRD) Af Amer 129, Est GFR (MDRD) Non-Af 107, BUN/Creatinine Ratio 7.4 L, Glucose 87, Calcium 8.1 L, Phosphorus 3.1 Current Medications Acetaminophen (Tylenol) 500 mg PO Q4H PRN PRN PRN Reason: Temp > 100.4 F Last Admin: 06/22/18 16:38 Dose: 500 mg Al Hydroxide/Mg Hydroxide (Mylanta Ii) 30 ml PO Q6H PRN PRN PRN Reason: Gastric burning Amlodipine Besylate (Norvasc) 5 mg PO DAILY [facility] Last Admin: 06/23/18 10:31 Dose: 5 mg Bisacodyl (Dulcolax) 10 mg RECTAL DAILY PRN PRN PRN Reason: Constipation Chlordiazepoxide (Librium) 25 mg PO Q12H [facility]; Taper Stop: 06/25/18 03:29 Last Admin: 06/24/18 04:21 Dose: 25 mg Dicyclomine HCl (Bentyl) 20 mg PO Q6H PRN PRN PRN Reason: abdominal discomfort Last Admin: 06/22/18 03:33 Dose: 20 mg Fluvoxamine Maleate (Luvox) 100 mg PO BID [facility] Last Admin: 06/23/18 21:58 Dose: 100 mg Folic Acid (Folic Acid) 1 mg PO DAILYCM [facility] Last Admin: 06/24/18 08:16 Dose: 1 mg Gabapentin (Neurontin) 300 mg PO TIDCM [facility] Last Admin: 06/24/18 08:16 Dose: 300 mg Heparin Sodium (Porcine) (Heparin Na) 5,000 unit SC Q12 [facility] Last Admin: 06/23/18 21:58 Dose: 5,000 unit Hydralazine HCl (Apresoline Iv) 10 mg IV Q4H PRN PRN PRN Reason: SBP > 160 Hydroxyzine Pamoate (Vistaril Pamoate Capsule) 50 mg PO Q6H PRN PRN PRN Reason: Mild Anxiety (score 1/3) Last Admin: 06/22/18 10:08 Dose: 50 mg Sodium Chloride () 1,000 mls @ 150 mls/hr IV .Q6H40M [facility] Last Admin: 06/24/18 06:05 Dose: 150 mls/hr Sodium Chloride () 250 mls @ 15 mls/hr IV .[id number] PRN PRN Reason: SALINE FLUSH Ibuprofen (Motrin) 600 mg PO Q8H PRN PRN PRN Reason: Mild-Moderate Pain (1-5/10) Last Admin: 06/23/18 21:57 Dose: 600 mg Loperamide HCl (Imodium) 2 - 4 mg PO UD PRN PRN Reason: LOOSE STOOLS Lorazepam (Ativan) 2 mg PO Q2H PRN PRN; Protocol PRN Reason: CIWA score > 8 but <15 Last Admin: 06/22/18 22:39 Dose: 2 mg Lorazepam (Ativan) 2 mg IV Q2H PRN PRN; Protocol PRN Reason: CIWA score > 8 but <15 Last Admin: 06/22/18 06:15 Dose: 2 mg Lorazepam (Ativan) 2 mg IV X1 PRN PRN Reason: Seizure Lorazepam (Ativan) 2 mg PO UD PRN; Protocol PRN Reason: CIWA score >/=15. Lorazepam (Ativan) 2 mg IV UD PRN; Protocol PRN Reason: CIWA score >/=15. Magnesium Hydroxide (Milk Of Magnesia) 30 ml PO DAILY PRN PRN PRN Reason: Constipation Methocarbamol (Methocarbamol) 750 mg PO Q6H PRN PRN PRN Reason: Muscle Aches Last Admin: 06/22/18 03:33 Dose: 750 mg [facility]ivit[facility] ([facility]ivitamin) [facility] Last Admin: 06/24/18 08:16 Dose: 1 tablet Ondansetron HCl (Zofran) 4 mg IV Q8H PRN PRN PRN Reason: NAUSEA Last Admin: 06/22/18 06:15 Dose: 4 mg Promethazine HCl (Phenergan) 12.5 mg IV Q6H PRN PRN PRN Reason: NAUSEA/VOMITING Quetiapine Fumarate (Seroquel) 25 mg PO Q6H PRN PRN PRN Reason: agitation, anxiety Last Admin: 06/24/18 08:16 Dose: 25 mg Senna (Senokot) 1 tablet PO QHS PRN PRN Reason: Constipation Sodium Chloride () 5 - 30 ml IV UD PRN PRN Reason: SALINE FLUSH Last Admin: 06/24/18 06:05 Dose: 10 ml Thiamine HCl (Vitamin B1) [facility] Last Admin: 06/24/18 08:17 Dose: 100 mg Trazodone HCl (Desyrel) 300 mg PO QHS PRN PRN Last Admin: 06/24/18 00:57 Dose: 300 mg Medical Necessity - Tobacco Use Smoking Status: Former smoker Tobacco Use: Non-smoker Assessment/Plan All Active Problems Alcohol withdrawal (Acute) ETOH abuse (Acute) Transaminitis (Acute) DONTA (acute kidney injury) (Acute) Hyponatremia (Acute) Jaundice due to hepatitis (Acute) 1. Acute alcohol withdrawal improving, though still tremulous and anxious. Patient attempted to quit cold turkey and as outpatient but after about 3 days patient just became worse. Subjectively, patient is feeling better at this time. Patient is on Librium taper plus as needed Ativan. Continue with thiamine and folate was in the hospital. With transition that over to a multivitamin as outpatient. Try to address patient's issues in regards to him relapsing. 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 Discussed with patient that that accessibility is always can be an issue even if he does move but having support networks in place will certainly help whether that would be through an organization such as Alcoholics Anonymous or family. Patient expressing that he did not appreciate Alcoholics Anonymous as it really was not effective for him but try to emphasize the need for support if this that or some other way. Dissipate discharge 06/25 2. Hypophosphatemia resolved 3. DVT prophylaxis with heparin Code Visit Inpatient E&M: 60164 Subs Hosp L2
[2018-06-24] MEDS: Heparin Injection (Vial) 5,000 UNIT/ML VIAL 5000 UNIT SC ×2 (10:14→21:41)
[2018-06-24] MEDS: amLODIPine 5 MG Tablet PO (10:14)
--- NOTE | 2018-06-24 12:04 | CASEMGMT ---
Addendum entered by Palmira Beck 06/25/18 08:42: SW spoke w/pt, let pt know that we do not have POA/LW on file, and asked him to bring them in should he be in the hospital again. Pt states understanding. SMILEY Tavares, CARPET FINISHING SUPERVISOR Original Note: Pt reported to RN that copy of POA was on chart, pt reported did not have living will. SW checked e-chart and paper chart, there is no copy of POA form. SW attempted to speak w/pt, he is sleeping soundly. SW will attempt to speak w/pt again regarding POA. SMILEY Tavares, CARPET FINISHING SUPERVISOR
[2018-06-24] MEDS: fluvoxaMINE Maleate 50 MG Tablet 100 MG PO ×2 (13:11→21:40)
--- NOTE | 2018-06-24 15:30 | CHAPLAIN ---
Type of Pastoral Visit _x__ Initial Visit ___ Follow-up Visit ___ On-call Visit ___ General Patient Visit ___ Spiritual Assessment ___ Family Conference ___ Bereavement ___ Rapid Response ___ Code Blue ___ Other (describe below) Pastoral Care Referral From _x__ Patient ___ Family ___ Nurse ___ Physician ___ Resourcing Consultant ___ Hammer Runner ___ Other (describe below) Sacrament/Intervention _x__ Active listening ___ Anointing ___ Restorationist ___ Bereavement ___ Communion _x__ Radha exploration ___ ___ Life review _x__ Prayer ___ Reconciliation ___ Sacrament of Sick _x__ Supportive presence ___ Wedding ___ Other (describe below) Pastoral Comments patient recognized this health insurance sales agent from previous admission; pt was willing to give update on his condition and his plan for the next step in recovery; pt expresses hope in his rehab assignment but admits to some anxiety as well; pt welcomes prayer and presence
[2018-06-25 00:02] VITALS: PULSE 87
[2018-06-25] MEDS: Ibuprofen 600 MG Tablet PO (01:56)
[2018-06-25] MEDS: traZODone 100 MG Tablet 300 MG PO (01:56)
[2018-06-25] MEDS: 0.9% Normal Saline 1,000 ML 150 ML IV (03:39)
[2018-06-25 06:43] VITALS: BP 128/78; PULSE 77; RESP 18; TEMP 37.1; O2SAT 98
--- NOTE | 2018-06-25 06:58 | NURSING ---
pt's tele monitor was removed pt is refusing to wear it and kept unhooking the leads
--- NOTE | 2018-06-25 08:13 | PCM.DC ---
You will use the following diet at home:: No restrictions Your food should be the consistency of: Regular Allergies/Adverse Reactions: Allergies amoxicillin Adverse Reaction (Verified 06/21/18 22:56) Upset Stomach Medications to take at Discharge Fluvoxamine Maleate 100 mg PO BID 30 Days #60 tab 05/11/18 Gabapentin [Neurontin] 300 mg PO TIDCM 30 Days #90 cap 05/11/18 Trazodone HCl 300 mg PO QHS PRN 30 Days #60 tab 05/11/18 Amlodipine [Norvasc] 5 mg PO DAILY 06/21/18 Thiamine HCl [Vitamin B-1] 100 mg PO DAILY 06/21/18 Primary Care Physician: Dagoberto Mari MD [Primary Care Provider] - Within 1 Week Test Results: Test results from this visit will be discussed in further detail at your follow-up appointment, if applicable. Proposed Discharge Date: 06/25/18
--- NOTE | 2018-06-25 08:21 | DCINST_ITS ---
You will use the following diet at home:: No restrictions Your food should be the consistency of: Regular Allergies/Adverse Reactions: Allergies amoxicillin Adverse Reaction (Verified 06/21/18 22:56) Upset Stomach Medications to take at Discharge Fluvoxamine Maleate 100 mg PO BID 30 Days #60 tab 05/11/18 Gabapentin [Neurontin] 300 mg PO TIDCM 30 Days #90 cap 05/11/18 Trazodone HCl 300 mg PO QHS PRN 30 Days #60 tab 05/11/18 Amlodipine [Norvasc] 5 mg PO DAILY 06/21/18 Thiamine HCl [Vitamin B-1] 100 mg PO DAILY 06/21/18 Primary Care Physician: Dagoberto Mari MD [Primary Care Provider] - Within 1 Week Test Results: Test results from this visit will be discussed in further detail at your follow- up appointment, if applicable. Proposed Discharge Date: 06/25/18
--- NOTE | 2018-06-25 08:22 | PCM.DC.SUM ---
Discharge Date and Diagnosis - Problem List Patient Problems: Active and Suspected Problems Alcohol withdrawal (Acute) Date of Admission: 06/22/18 Date of Discharge: 06/25/18 - Secondary Discharge Diagnosis Chronic Problems HTN (hypertension) (Chronic) Tobacco use (Chronic) Depression (Chronic) Methamphetamine abuse (Chronic) Hospital Course and Treatment Operations: None Procedures: None Summary of Care Provided: The patient is a 48 year old M presents with alcohol withdrawal. Patient had quit drinking 3 days prior but start expressing nausea, tremors, agitation and tactile disturbances. Patient was admitted and started on Librium for alcohol withdrawal. In addition, patient was on thiamine and folate. Patient's course was uncomplicated but did take the patient few days till he was feeling much better. Today the patient has received his last dose of Librium and I will be discharged home. Patient has long-term addiction program that he is going to be enrolled in. [] Patient Problems: Active and Suspected Problems Alcohol withdrawal (Acute) - Physical Exam General: Alert, Cooperative, No apparent distress HEENT: Atraumatic, Normocephalic Psych/Mental Status: Normal Affect, Appropriate Vital Signs Temp Pulse Resp BP Pulse Ox 37.1 C 77 18 128/78 H 98 06/25/18 06:43 06/25/18 06:43 06/25/18 06:43 06/25/18 06:43 06/25/18 06:43 Oxygen Delivery Method Room Air Weight: 95.8 kg Body Mass Index (BMI) 30.3 Intake and Output for Last 24 Hours 06/23/18 06/24/18 06/25/18 23:59 23:59 23:59 Intake Total 7055 / 7055 893 / 893 2942 / 2942 Balance 7055 / 7055 893 / 893 2942 / 2942 Discharge Diet: No Restrictions Home Medications: Medications to take at Discharge Fluvoxamine Maleate 100 mg PO BID 30 Days #60 tab 05/11/18 Gabapentin [Neurontin] 300 mg PO TIDCM 30 Days #90 cap 05/11/18 Trazodone HCl 300 mg PO QHS PRN 30 Days #60 tab 05/11/18 Amlodipine [Norvasc] 5 mg PO DAILY 06/21/18 Thiamine HCl [Vitamin B-1] 100 mg PO DAILY 06/21/18 Primary Care Physician: Dagoberto Mari MD [Primary Care Provider] - Within 1 Week Disposition: Home Minutes spent on discharge:: 28 Patient Condition:: Good Medical Necessity - Tobacco Use Smoking Status: Former smoker Tobacco Use: Non-smoker Meaningful Use Info Meaningful Use Diagnoses (Choose all that apply): None applicable Code Visit Inpatient E&M: 98989 Disch Hosp
[2018-06-25] MEDS: Folic Acid 1 MG Tablet PO (09:43)
[2018-06-25] MEDS: fluvoxaMINE Maleate 50 MG Tablet 100 MG PO (09:43)
[2018-06-25] MEDS: Multivitamins,Therapeutic Tablet 1 TABLET PO (09:43)
[2018-06-25] MEDS: Gabapentin 300 MG Capsule PO (09:43)
[2018-06-25] MEDS: Thiamine Hydrochloride 100 MG Tablet PO (09:43)
[2018-06-25] MEDS: amLODIPine 5 MG Tablet PO (09:43)
[2018-06-25 09:45] VITALS: BP 139/88; PULSE 83; RESP 18; TEMP 36.4
[2018-06-25] MEDS: LORazepam 1 MG Tablet 2 MG PO (09:52)
== END 2018-06-25 10:56 | disposition home or self-care (01) | DRG 775 ==
LOC: ED 23:26 → MS2 06-22 01:12
PROVIDERS: Admitting Provider Family Medicine; Emergency Provider Emergency Medicine; Family Provider Family Medicine; PCP Family Medicine
DX: F10.239 Alcohol dependence with withdrawal, unspecified (principal); N17.9 Acute kidney failure, unspecified; E87.1 Hypo-osmolality and hyponatremia; F15.10 Other stimulant abuse, uncomplicated; I10 Essential (primary) hypertension; F17.210 Nicotine dependence, cigarettes, uncomplicated; E86.0 Dehydration; Y90.0 Blood alcohol level of less than 20 mg/100 ml; F32.9 Major depressive disorder, single episode, unspecified; E83.39 Other disorders of phosphorus metabolism
CPT/HCPCS: 36415; 80048; 80053; 80076; 80307; 80320; 82962; 83690; 83735; 84100; 85025; 99282; J7030; J7040; J7050; A4216; G0480; J2405

== ENCOUNTER → 2019-05-20 | Outpatient (CLI) | payer MEDICAID, SELFPAY ==
[2018-06-22 02:16] VITALS: BMI 30.3
[2019-05-20 17:38] LABS: Absolute Lymphocyte Count 1.81 X10^3/uL (0.83-4.51); Absolute Neutrophil Count 2.3 X10^3/uL (2.0-7.7); Basophil# 0.03 X10^3/uL; Basophil% 0.6 % (0-1); Eosinophil# 0.08 X10^3/uL; Eosinophils% 1.7 % (0-5); Hematocrit 47.8 % (40-54); Hemoglobin 16.4 g/dL (13.0-16.5); Lymphocyte # 1.81 X10^3/ul (4.0); Lymphocyte % 39.1 % (19-41); Mean Corp Hgb Conc 34.3 g/dL (32-36); Mean Corpuscular Hgb 31.5 pg (27.0-32.0); Mean Corpuscular Volume 91.7 fL (80-94); Monocyte# 0.38 X10^3/uL; Monocyte% 8.2 % (0-10); NRBC Flagged by Analyzer 0 % (0-5); Neutrophil # 2.31 X10^3/uL (2.7-7.7); Platelet Count 206 K/mm3 (150-450); RBC Distribution Width CV 13.2 % (11.6-14.6); RBC Distribution Width SD 44.3 fl (35.1-43.9); Red Blood Count 5.21 M/mm3 (4.6-6.2); White Blood Count 4.6 K/mm3 (4.4-11.0)
[2019-05-20 17:57] LABS: ALB/GLOB Ratio 1.2 RATIO (0.9-2.4); AST(SGOT) 17 U/L (15-37); Alanine Aminotransfer ALT/SGPT 24 U/L (16-61); Alkaline Phosphatase 91 U/L (45-117); Anion Gap 7 (5-15); BUN 16 mg/dL (7-18); BUN/Creat Ratio 12.5 RATIO (10-20); Calcium,Total 8.9 mg/dL (8.5-10.1); Chloride 108 mmol/L (98-107); Cholesterol 137 mg/dL (200); Creatinine, Serum 1.28 mg/dL (0.70-1.30); EST Glomerular Filtration Rate 63 mL/min (>60); Est Glom Filt Rate - Afr Amer 77 mL/min (>60); Globulin 3.2 g/dL (2.2-4.2); Glucose 95 mg/dL (74-106); High Density Lipoprotein 81 mg/dL; PSA,Total- Diagnostic 0.21 ng/mL (0.0-4.0); Potassium 4.2 mmol/L (3.5-5.1); Protein, Total 7.2 g/dL (6.4-8.2); Sodium Level 141 mmol/L (136-145); Thyroid Stim Hormone (TSH) 3.13 uIU/mL (0.358-3.74); Triglycerides 42 mg/dL; Very Low Density Lipoprotein 8 mg/dL (5-40)
== END | disposition home or self-care (01) ==
LOC: MFPLAB 15:17
PROVIDERS: Family Provider Family Medicine; PCP Family Medicine; Referring Provider Family Medicine; Visit Provider Family Medicine
DX: Z00.00 Encounter for general adult medical examination without abnormal findings (principal); F10.21 Alcohol dependence, in remission
CPT/HCPCS: 36415; 80053; 80061; 84153; 84443; 85025

== ENCOUNTER → 2021-06-26 11:50 | Outpatient (CLI) | payer OTHER, SELFPAY ==
[2021-06-26 17:01] LABS: Bacteria 0 SEEN /hpf (None Seen); Mucous, Urine 0 SEEN /hpf (<or=2+); Red Blood Cells-Urine 0 SEEN /hpf (0-5); Squamous Epithelial Cells - UA 0 SEEN /hpf (0-5); White Blood Cells 0 SEEN /hpf (0-5)
[2021-06-26 17:25] LABS: Color, Urine Yellow (Yellow); Glucose, Dipstick Normal (Normal); Ketone-Dipstick Negative (Negative); Leukocyte Esterase-Dipstick Negative /ul (Negative); Nitrite-Dipstick Negative (Negative); Occult Blood-Urine Negative /ul (Negative); Protein-Dipstick Negative (Negative); Specific Gravity, Urine 1.015 (1.002-1.030); Urine Bilirubin Dipstick Negative (Negative); Urine Clarity Clear (Clear); Urine Urobilinogen Normal (Normal)
[2021-06-26 22:30] LABS: Chlamydia Trachomatis by PCR Negative (Negative); Neisserai gonorrhoeae by PCR Negative (Negative); Probe Check PASS; Sample Adequacy Control PASS; Specimen Processing Control PASS
[2021-06-27 08:53] LABS: HIV - WCH Non-Reactive (Nonreactive); Syphilis Antibodies Non-reactive
== END ==
PROVIDERS: PCP Family Medicine; Referring Provider Family Medicine; Visit Provider Family Medicine
DX: N36.8 Other specified disorders of urethra (principal)
CPT/HCPCS: 36415; 81001; 86703; 86780; 87086; 87491; 87591

== ENCOUNTER → 2021-07-02 16:55 | Outpatient (CLI) | payer OTHER, SELFPAY ==
[2021-07-02 17:01] LABS: Bacteria 0 SEEN /hpf (None Seen); Mucous, Urine 0 SEEN /hpf (<or=2+); Red Blood Cells-Urine 0 SEEN /hpf (0-5); Squamous Epithelial Cells - UA 0 SEEN /hpf (0-5); White Blood Cells 0 SEEN /hpf (0-5)
[2021-07-02 17:47] LABS: Color, Urine Yellow (Yellow); Glucose, Dipstick Normal (Normal); Ketone-Dipstick Negative (Negative); Leukocyte Esterase-Dipstick Negative /ul (Negative); Nitrite-Dipstick Negative (Negative); Occult Blood-Urine Negative /ul (Negative); Protein-Dipstick Negative (Negative); Urine Bilirubin Dipstick Negative (Negative); Urine Clarity Clear (Clear); Urine Urobilinogen Normal (Normal)
== END ==
PROVIDERS: PCP Family Medicine; Visit Provider Family Medicine
DX: I10 Essential (primary) hypertension (principal)
CPT/HCPCS: 81001; 87086

== ENCOUNTER 2021-10-07 01:17 | Emergency (ER) | payer BC, SELFPAY ==
[2021-10-07 01:18] VITALS: BP 158/93; PULSE 91; RESP 22; TEMP 36.5; O2SAT 97; BMI 33.1
--- NOTE | 2021-10-07 01:28 | RAD_ITS ---
EXAM: XR Right Elbow Complete, 3 or More Views CLINICAL INDICATION: 51 years old, Male; trauma TECHNIQUE: Frontal, lateral and oblique views of the right elbow. This report was created using [employer] report generation technology. COMPARISON: None. FINDINGS: Bones/joints: Unremarkable. There is no displacement of the anterior or posterior fat pads. No acute fracture. No subluxation. Normal alignment. Preservation of the joint space. No destructive or sclerotic lesions. Soft tissues: Unremarkable. No soft tissue swelling or gas. No radiopaque foreign body. RAD/Elbow min 3 Views IMPRESSION: Negative right elbow. Electronically Signed: Anatoly Johnston MD at 2:47 EST ,
--- NOTE | 2021-10-07 01:29 | EDS_ITS ---
HPI History of Present Illness Chief Complaint: Upper Extremity Injury Informant: patient Narrative Narrative: Patient slipped on a wet area in a restaurant and fell directly on his right elbow. He has pain in the right elbow and nowhere else. A little more sore with motion and better with rest. He never hit his head. He has no numbness tingling weakness. No loss of consciousness. He is not on anticoagulants. [facility] Medical History Hypertension Home Medications fluvoxamine 100 mg PO BID 30 Days #60 tab 05/11/18 [Rx Last Taken Unknown] gabapentin 300 mg PO TIDCM 30 Days #90 cap 05/11/18 [Rx Last Taken Unknown] trazodone 300 mg PO QHS PRN 30 Days #60 tab 05/11/18 [Rx Last Taken Unknown] amlodipine 5 mg PO DAILY 06/21/18 [History Last Taken Unknown] thiamine HCl (vitamin B1) [Vitamin B-1] 100 mg PO DAILY 06/21/18 [History Last Taken Unknown] Allergy/AdvReac Type Severity Reaction Status Date / Time amoxicillin AdvReac Upset Verified 10/07/21 01:20 Stomach Surgical History no surgical history Social History Smoking Status: Current some day smoker tobacco type: cigarettes ROS ROS ED Cardiovascular Cardiovascular: Denies chest pain or palpitations Respiratory/Chest Respiratory/Chest: Denies dyspnea Gastrointestinal Gastrointestinal: Denies abdominal pain, nausea or vomiting Genitourinary Genitourinary ED: Denies hematuria Musculoskeletal Musculoskeletal: Reports other Details: Right elbow pain as in history of present illness. ; Denies back pain or neck pain Integumentary Denies abscess, Abrasions or rash Neurologic Neurologic: Denies headache(s), paresthesias or weakness Hematologic/Lymphatic Hematologic/Lymphatic: Denies easy bleeding or easy bruising EXAM Physical Exam Const Vital Signs: 10/07/21 01:18 Temperature 97.7 F L Temperature Source Temporal Pulse Rate 91 Respiratory Rate 22 H Blood Pressure 158/93 H Blood Pressure Mean 114 Pulse Ox 97 Oxygen Delivery Method Room Air Positive well nourished and well developed General Appearance ED: well developed and NAD HEENT normocephalic and atraumatic Chest Wall inspection of chest normal Resp normal respiratory effort Back/Spine no CVA tenderness Cervical Spine: Negative for cervical spine tenderness Thoracic Spine / Upper Back: Negative for thoracic spinal tenderness Lumbar Spine / Lower Back: Negative for lumbar spinal tenderness Extremity normal to inspection Extremity Narrative: No deformity. Range of motion was not initially assessed. He has diffuse tenderness around the elbow but none more proximally or up in the humerus or shoulder area. He has no forearm or wrist or hand tenderness. Neuro no focal motor deficits and no sensory deficits noted Sensorium / Orientation: alert Psych mental status grossly normal Skin Lesions: no lesions Rashes: no rashes Trauma: no lacerations or abrasions MDM MDM MDM Narrative Medical decision making narrative: Three-view x-ray of elbow looked at by me and read by radiology shows no sign of fracture. I recommend ice rest nonsteroidals for pain. I would like to avoid a sling as the sling may cause more stiffness and pain than improvement with no fracture seen. Discharge Plan Triage Chief Complaint: Upper Extremity Injury ED Provider: Saw Chase Dx/Rx/DC Orders Clinical Impression: Fall from slipping, Contusion of right elbow Instructions: ED Contusion, Elbow Prescriptions: No Action gabapentin 300 MG capsule 300 mg PO TIDCM 30 Days Qty: 90 RF: 3 trazodone 150 MG tablet 300 mg PO QHS PRN (Reason: Sleep) 30 Days Qty: 60 RF: 0 fluvoxamine 100 MG tablet 100 mg PO BID 30 Days Qty: 60 RF: 4 thiamine HCl (vitamin B1) [Vitamin B-1] 100 MG tablet 100 mg PO DAILY RF: 0 amlodipine 5 MG tablet 5 mg PO DAILY RF: 0 Primary Care Provider: Dagoberto Mari Referrals: Dagoberto Mari MD [Primary Care Provider] - 3-5 Days if not improving Activity Restrictions/Additional Instructions: Ice rest and [id number] medicine for discomfort. Disposition Disposition: Home, Self Care
[2021-10-07 02:57] VITALS: BP 118/78; PULSE 87; RESP 16; O2SAT 97
== END 2021-10-07 02:59 | disposition home or self-care (01) ==
PROVIDERS: Emergency Provider Emergency Medicine; PCP Family Medicine; Visit Provider Emergency Medicine
DX: S50.01XA Contusion of right elbow, initial encounter (principal); W01.0XXA Fall on same level from slipping, tripping and stumbling without subsequent striking against object, initial encounter; I10 Essential (primary) hypertension; Y92.511 Restaurant or cafe as the place of occurrence of the external cause; F17.210 Nicotine dependence, cigarettes, uncomplicated; Z79.899 Other long term (current) drug therapy
CPT/HCPCS: 73080; 99282; J7030

== ENCOUNTER 2021-12-01 10:30 | Inpatient (IN) | payer OTHER, SELFPAY ==
[2021-12-01] VITALS (22 sets, daily range): BP systolic 114–164; BP diastolic 69–101; PULSE 74–125; RESP 16–30; TEMP 36.3–37.8; O2SAT 91–98; BMI 32.3; BMI 32.5
--- NOTE | 2021-12-01 10:41 | EKG12_ITS ---
Test Reason : Blood Pressure : / mmHG Vent. Rate : 124 BPM Atrial Rate : 124 BPM P-R Int : 136 ms QRS Dur : 086 ms QT Int : 318 ms P-R-T Axes : 046 006 037 degrees QTc Int : 456 ms Sinus tachycardia Otherwise normal ECG Confirmed by DUONG LAKE, AVRIL ([id number]), deputy editor in chief ANATOLIY TREADWELL ([id number]) on 12/05/2021 11:14:00 AM Referred By: PL Confirmed By:AVRIL WATTERS MD
--- NOTE | 2021-12-01 10:43 | EX.ED.DYSGE1 ---
HPI History of Present Illness Chief Complaint: Substance Abuse Informant: patient Narrative Narrative: Patient presents by EMS requesting detox and feeling as though he is in alcohol withdrawal. Patient states he drinks about 1/5 of 80 proof vodka a day. If he does not drink he gets shakes and muscle aches and nausea and vomiting. He states he has been vomiting not uncommonly but it is increased over the last 2 to 3 days. However, he was able to keep drinking until he is yesterday. He is not sure what time he had his last drink but it was sometime yesterday. He may have vomited a small amount of blood once a few days ago but that has not continued. No blood in the stool. He is not having abdominal pain or chest pain. He does feel shaky and has myalgias. He has never had a seizure with withdrawal. He went through detox but it has been a long time ago. He is not sure when. He denies history of cirrhosis but has been told he has a fatty liver. Patient has OCD and sleep difficulties. He denies high blood pressure heart disease diabetes or pulmonary disease. Only surgery is a hernia [facility] Medical History Anxiety Hypertension Smoker Home Medications fluvoxamine 100 mg PO BID 30 Days #60 tab 05/11/18 [Rx Last Taken Unknown] gabapentin 300 mg PO TIDCM 30 Days #90 cap 05/11/18 [Rx Last Taken Unknown] trazodone 300 mg PO QHS PRN 30 Days #60 tab 05/11/18 [Rx Last Taken Unknown] Allergy/AdvReac Type Severity Reaction Status Date / Time amoxicillin AdvReac Upset Verified 12/01/21 10:33 Stomach Social History Smoking Status: Current some day smoker tobacco type: cigarettes ROS ROS ED Constitutional Constitutional ED: Reports chills; Denies fever(s) Eyes Eyes: Denies blurry vision ENT ENT ED: Denies rhinorrhea or sore throat Cardiovascular Cardiovascular: Denies chest pain or palpitations Respiratory/Chest Respiratory/Chest: Denies cough or dyspnea Gastrointestinal Gastrointestinal: Reports nausea and vomiting; Denies abdominal pain or diarrhea Genitourinary Genitourinary ED: Denies dysuria Musculoskeletal Musculoskeletal: Reports myalgias Integumentary Denies rash Neurologic Neurologic: Denies paresthesias or weakness Psychiatric Psychiatric: Reports anxiety Endocrine Endocrinology: Denies polydipsia or polyuria Allergic/Immunologic Allergic/Immunologic ED: Denies urticaria EXAM Physical Exam Const Vital Signs: 12/01/21 10:31 12/01/21 10:34 12/01/21 11:44 Temperature 97.3 F L 97.3 F L Temperature Source Temporal Temporal Pulse Rate 125 H 125 H 112 H Respiratory Rate 16 18 21 H Blood Pressure 154/101 H 164/97 H 158/91 H Blood Pressure Mean 118 119 113 Blood Pressure Source Monitor Blood Pressure Position Blood Pressure Location Pulse Ox 96 98 94 Oxygen Delivery Method Room Air Room Air Room Air 12/01/21 12:00 Temperature Temperature Source Pulse Rate 116 H Respiratory Rate 22 H Blood Pressure 151/99 H Blood Pressure Mean 116 Blood Pressure Source Monitor Blood Pressure Position Semi-Fowlers Blood Pressure Location Right Arm Pulse Ox 95 Oxygen Delivery Method Room Air Positive well nourished and well developed Constitutional Narrative: Patient is somewhat tremulous. However he is awake and alert. General Appearance ED: well developed; Negative for cyanotic or diaphoretic HEENT Reports dry mucous membranes HEENT Narrative: Mildly dry mucous membranes. Mouth ED: Yes dry mucous membranes Mouth: dry mucous membranes Eyes Eyes Narrative: Mildly injected conjunctiva. I do not see icterus. General Eye ED: Negative for scleral icterus Neck no JVD Resp normal respiratory effort and clear to auscultation bilaterally Effort and Inspection: Negative for pain with movement Auscultation: Negative for rales, rhonchi or wheezes Cardio regular rhythm; Negative for regular rate Rate: tachycardic GI normal to inspection, nondistended, normoactive bowel sounds and non-tender Palpation: soft Back/Spine no CVA tenderness Extremity normal to inspection General Extremety ED: Negative for edema or tenderness General Extremity: Negative for edema Neuro oriented x3 Neuro Narrative: No indication of hallucinations. He is cooperative. No focal deficit. Sensorium / Orientation: alert Psych Psych Narrative: Patient is mildly anxious Mood & Affect: anxious Skin no rashes or lesions noted General Skin Exam: Negative for jaundice MDM MDM MDM Narrative Medical decision making narrative: Patient's labs show relatively normal CBC. INR is normal. Liver function test are elevated but they are markedly reduced from some of his past ones. His electrolytes shows mild elevation in the creatinine. His anion gap is high. Bicarb is actually preserved. Sodium is just slightly low. Lactate was very high at 7.3. Alcohol level was 88 still. Acetone was negative. Patient was given Ativan that helped him. He is less tremulous and his heart rate is down. However we have noticed now that he was evidently talking to a family member who is . This does show signs of hallucinations and delirium tremens. With his high lactate, likely alcoholic ketoacidosis, DTs, he is put in the ICU. I discussed the case with the hospitalist who came down and saw the patient. He noted the hallucination and we both agree this patient would be best in the ICU so he can be watched closer. Further treatment with medications including possibility of phenobarbital Precedex will be managed upstairs. Lab Data Attestation: I reviewed the patient's lab results. Labs: Laboratory Results - last 24 hr 12/01/21 12/01/21 12/01/21 10:57 10:57 10:57 WBC 9.0 RBC 4.90 Hgb 16.4 Hct 45.7 MCV 93.3 MCH 33.5 H MCHC 35.9 RDW Std Deviation 51.8 H RDW Coeff of [place] 14.9 H Plt Count 111 L MPV 9.7 Immature Gran % (Auto) 0.400 Neut % (Auto) 76.9 H Lymph % (Auto) 10.2 L [place] % (Auto) 9.5 Eos % (Auto) 2.7 Baso % (Auto) 0.3 Absolute Neuts (auto) 7.0 Absolute Lymphs (auto) 0.92 Nucleated RBC % 0 PT 12.7 INR 1.0 Sodium 132 L Potassium 4.1 Chloride 93 L Carbon Dioxide 22.0 Anion Gap 17 H BUN 21 H Creatinine 1.39 H Estim Creat Clear Calc 64.19 Est GFR (MDRD) Af Amer 69 Est GFR (MDRD) Non-Af 57 L BUN/Creatinine Ratio 15.1 Glucose 164 H Lactic Acid Calcium 8.8 Phosphorus Magnesium Total Bilirubin 1.10 H AST 177 H ALT 122 H Alkaline Phosphatase 103 Total Protein 8.0 Albumin 4.2 Globulin 3.8 Albumin/Globulin Ratio 1.1 Lipase Ethyl Alcohol Acetone Level 12/01/21 12/01/21 12/01/21 10:57 10:57 10:57 WBC RBC Hgb Hct MCV MCH MCHC RDW Std Deviation RDW Coeff of [place] Plt Count MPV Immature Gran % (Auto) Neut % (Auto) Lymph % (Auto) [place] % (Auto) Eos % (Auto) Baso % (Auto) Absolute Neuts (auto) Absolute Lymphs (auto) Nucleated RBC % PT INR Sodium Potassium Chloride Carbon Dioxide Anion Gap BUN Creatinine Estim Creat Clear Calc Est GFR (MDRD) Af Amer Est GFR (MDRD) Non-Af BUN/Creatinine Ratio Glucose Lactic Acid 7.3 H* Calcium Phosphorus Magnesium Total Bilirubin AST ALT Alkaline Phosphatase Total Protein Albumin Globulin Albumin/Globulin Ratio Lipase Ethyl Alcohol 88.0 Acetone Level NEGATIVE 12/01/21 10:57 WBC RBC Hgb Hct MCV MCH MCHC RDW Std Deviation RDW Coeff of [place] Plt Count MPV Immature Gran % (Auto) Neut % (Auto) Lymph % (Auto) [place] % (Auto) Eos % (Auto) Baso % (Auto) Absolute Neuts (auto) Absolute Lymphs (auto) Nucleated RBC % PT INR Sodium Potassium Chloride Carbon Dioxide Anion Gap BUN Creatinine Estim Creat Clear Calc Est GFR (MDRD) Af Amer Est GFR (MDRD) Non-Af BUN/Creatinine Ratio Glucose Lactic Acid Calcium Phosphorus 3.6 Magnesium 1.9 Total Bilirubin AST ALT Alkaline Phosphatase Total Protein Albumin Globulin Albumin/Globulin Ratio Lipase 216 Ethyl Alcohol Acetone Level EKG Initial EKG: Comments: EKG done for tachycardia and alcohol withdrawal and read by me shows sinus rhythm with a tachycardic rate at 124. No ventricular ectopy. There is baseline variation but no evidence of acute ST elevation or depression. CA interval, QRS duration and QTc are normal. Critical Care Time Critical care time (excluding procedures): 30-74 minutes, Discussing w/Patient &/or Family/Pocket Machine Operator, Discussing w/Consultants, Arranging Admission or Transfer, Performing Direct Patient Care at Bedside and - (35 minutes. Revisits, repeat medications, discussion with consultants. See MDM.) Discharge Plan Dx/Rx/DC Orders Clinical Impression: Delirium tremens, ETOH abuse, Alcohol withdrawal, Desire for detoxification, Acidosis, lactic Disposition Disposition: [facility] Discharge Date/Time: 12/01/21 12:47
[2021-12-01] MEDS: LORazepam 2 MG/ML Syringe IV ×3 (10:51→16:35)
[2021-12-01] MEDS: 0.9% Normal Saline 1,000 ML 1000 ML IV (10:51)
[2021-12-01] MEDS: Ondansetron 4 MG/2 ML Vial IV (10:51)
[2021-12-01 11:14] LABS: Absolute Lymphocyte Count 0.92 X10^3/uL (0.83-4.51); Basophil# 0.03 X10^3/uL; Basophil% 0.3 % (0-1); Eosinophil# 0.24 X10^3/uL; Eosinophils% 2.7 % (0-5); Hematocrit 45.7 % (40-54); Hemoglobin 16.4 g/dL (13.0-16.5); Lymphocyte # 0.92 X10^3/ul (0.83-4.51); Lymphocyte % 10.2 % (19-41); Mean Corp Hgb Conc 35.9 g/dL (32-36); Mean Corpuscular Hgb 33.5 pg (27.0-32.0); Mean Corpuscular Volume 93.3 fL (80-94); Mean Platelet Vol. 9.7 fl (6.2-12.0); Monocyte# 0.86 X10^3/uL; Monocyte% 9.5 % (0-10); NRBC Flagged by Analyzer 0 % (0-5); Neutrophil # 6.95 X10^3/uL (2.7-7.7); Neutrophil % 76.9 % (47-70); Platelet Count 111 K/mm3 (150-450); RBC Distribution Width CV 14.9 % (11.6-14.6); RBC Distribution Width SD 51.8 fl (35.1-43.9)
[2021-12-01 11:18] LABS: Prothrombin Time (Protime)PT. 12.7 SECONDS (11.7-14.9)
[2021-12-01 11:25] LABS: ALB/GLOB Ratio 1.1 RATIO (0.9-2.4); AST(SGOT) 177 U/L (15-37); Alanine Aminotransfer ALT/SGPT 122 U/L (16-61); Albumin, Serum 4.2 g/dL (3.2-5.0); Alkaline Phosphatase 103 U/L (45-117); Anion Gap 17 (5-15); BUN 21 mg/dL (7-18); BUN/Creat Ratio 15.1 RATIO (10-20); Calcium,Total 8.8 mg/dL (8.5-10.1); Chloride 93 mmol/L (98-107); Creatinine, Serum 1.39 mg/dL (0.70-1.30); EST Glomerular Filtration Rate 57 mL/min (>60); Est Glom Filt Rate - Afr Amer 69 mL/min (>60); Estimated Creatinine Clearance 64.19 ml/min; Globulin 3.8 g/dL (2.2-4.2); Glucose 164 mg/dL (74-106); Potassium 4.1 mmol/L (3.5-5.1); Sodium Level 132 mmol/L (136-145)
[2021-12-01 11:37] LABS: Lactic Acid 7.3 mmol/L (0.4-1.9)
--- NOTE | 2021-12-01 11:44 | ED.RN ---
Let Dr. Chase know that pt notes ativan is working and that he is wondering when he would get more of that. Dr. Chase is aware of pt's question.
[2021-12-01] MEDS: LORazepam 2 MG/ML Syringe 1 MG IV (11:57)
--- NOTE | 2021-12-01 12:27 | PCM.HP.STD ---
HPI - General General Date of Admission: 12/01/21 Date of Service: 12/01/21 Chief Complaint: Acute alcohol withdrawal syndrome, nausea vomiting and delusional thoughts for 6 days HPI Narrative ALTHEA TIERNEY, is a 51 M with history of chronic alcohol use and previous admission in June 2018 for acute alcohol withdrawal syndrome was brought to ED by EMS as patient has been vomiting, shaking feeling weak for about 6 days. History taken from patient and her girlfriend present in the room. Patient having alcohol withdrawal symptoms for last 6 days with nausea vomiting, tremors and hallucinations. Few days ago patient had intrusive thoughts and he talks to his dad who has in 2005. Patient denies suicidal ideation/attempt or homicidal ideation. He denies any previous history of alcohol withdrawal seizure. Patient also smokes 2 to 3 cigarettes/day last smoking was 2 to 3 weeks ago. He also vomited a small amount of blood only 1 time, a few days ago but not consistent or continuous. It was not associated with any blood clots. No hematochezia or melena. He was told that he has a fatty liver. He was never admitted for upper GI/variceal bleed or ascites Patient has anxiety problem with OCD and sleeping difficulties. Denies coronary artery disease, chronic pulmonary disease, stroke or PAD. No history of diabetes. In the ER, patient was found hypertensive and tachycardic, heart rate 120s, blood pressure 164/97. Patient not able to sufficient oral intake either food or water and is very dehydrated. Patient further admitted in ICU [facility] Medical History Hypertension Home Medications fluvoxamine 100 mg PO BID 30 Days #60 tab 05/11/18 [Rx Last Taken Unknown] gabapentin 300 mg PO TIDCM 30 Days #90 cap 05/11/18 [Rx Last Taken Unknown] trazodone 300 mg PO QHS PRN 30 Days #60 tab 05/11/18 [Rx Last Taken Unknown] Allergy/AdvReac Type Severity Reaction Status Date / Time amoxicillin AdvReac Upset Verified 12/01/21 10:33 Stomach Social History Smoking Status: Current some day smoker tobacco type: cigarettes ROS ROS Narrative ROS obtained from patient and her girlfriend family at the bedside. Patient is shaking Constitutional: Reports fatigue and weakness HEENT: Dehydrated. Reports systems reviewed and no addt'l complaints, except as documented Respiratory/Chest: Denies chest pain, shortness of breath at rest or with exertion Gastrointestinal: As mentioned in HPI. Genitourinary: Denies burning urination or new urinary tract symptoms Musculoskeletal: Diffuse aches and pains. Muscle aches Neurologic: Denies seizure-like activity. Psychiatric: Hallucinations, intrusive thoughts, possible delusional thoughts skin: Dry skin Endocrinology: Reports systems reviewed and no addt'l complaints, except as documented Hematologic/Lymphatic: Reports systems reviewed and no addt'l complaints, except as documented Rest 14 ROS are negative except as mentioned in HPI Vital Signs Vital Signs Vital Signs: 12/01/21 10:31 12/01/21 10:34 12/01/21 11:44 Temperature 97.3 F L 97.3 F L Temperature Source Temporal Temporal Pulse Rate 125 H 125 H 112 H Respiratory Rate 16 18 21 H Blood Pressure 154/101 H 164/97 H 158/91 H Blood Pressure Mean 118 119 113 Blood Pressure Source Monitor Blood Pressure Position Blood Pressure Location Pulse Ox 96 98 94 Oxygen Delivery Method Room Air Room Air Room Air 12/01/21 12:00 Temperature Temperature Source Pulse Rate 116 H Respiratory Rate 22 H Blood Pressure 151/99 H Blood Pressure Mean 116 Blood Pressure Source Monitor Blood Pressure Position Semi-Fowlers Blood Pressure Location Right Arm Pulse Ox 95 Oxygen Delivery Method Room Air Weight Weight: 225 lb Body Mass Index (BMI) 32.3 Physical Exam Narrative General: Awake, intermittent confusion, lethargy. Oriented to time place and person. HEENT: Atraumatic, PERRLA, EOMI, Normocephalic Oral: Oral mucosa dry. No Gingival or Mucosal Lesions/ Ulcerations Neck: Supple, No JVD, Negative Carotid Bruits Lungs: Air entry diminished in bilateral lung bases. No crepitation/rhonchi Cardiovascular: Sinus tachycardia, Normal S1, Normal S2, No murmurs Abdomen: Mild tenderness over right upper quadrant. Liver not enlarged. Liver dullness starts at right sixth intercostal space mid axillary line. bowel Sounds Present, Soft, nondistended : No renal angle tenderness. No suprapubic tenderness. Extremities: No edema, Capillary Refill Less than 3 Seconds Skin: Flushed skin over the face. Dry skin. Musculoskeletal: No Tenderness to Palpation of Joints or Extremities Neurological: Cranial nerves II-XII grossly intact, DTR 2+/4 and Symmetrical Psych/Mental Status: Confused, hard time in recall and recollection/mild amnesia. Hallucinations, intrusive thoughts, disorganized behavior Results Lab / Micro Data Result Diagrams: 12/01/21 10:57 12/01/21 10:57 Labs: Laboratory Results - last 24 hr 12/01/21 10:57: WBC 9.0, RBC 4.90, Hgb 16.4, Hct 45.7, MCV 93.3, MCH 33.5 H, MCHC 35.9, RDW Std Deviation 51.8 H, RDW Coeff of Guicho 14.9 H, Plt Count 111 L, MPV 9.7, Immature Gran % (Auto) 0.400, Neut % (Auto) 76.9 H, Lymph % (Auto) 10.2 L, [place] % (Auto) 9.5, Eos % (Auto) 2.7, Baso % (Auto) 0.3, Absolute Neuts (auto) 7.0, Absolute Lymphs (auto) 0.92, Nucleated RBC % 0 12/01/21 10:57: PT 12.7, INR 1.0 12/01/21 10:57: Sodium 132 L, Potassium 4.1, Chloride 93 L, Carbon Dioxide 22.0, Anion Gap 17 H, BUN 21 H, Creatinine 1.39 H, Estim Creat Clear Calc 64.19, Est GFR (MDRD) Af Amer 69, Est GFR (MDRD) Non-Af 57 L, BUN/Creatinine Ratio 15.1, Glucose 164 H, Calcium 8.8, Total Bilirubin 1.10 H, AST 177 H, ALT 122 H, Alkaline Phosphatase 103, Total Protein 8.0, Albumin 4.2, Globulin 3.8, Albumin/Globulin Ratio 1.1 12/01/21 10:57: Ethyl Alcohol 88.0 12/01/21 10:57: Lactic Acid 7.3 H* 12/01/21 10:57: Acetone Level NEGATIVE Assessment & Plan Assessment/Plan (1) Alcohol withdrawal delirium, acute, hyperactive: PLAN: 1. Severe acute alcohol withdrawal syndrome with psychotic symptoms and delirium: Patient having intrusive thoughts, hallucinations, tachycardia, hypertension, tremors, nausea and vomiting and severe dehydration. Serum alcohol level 88. Patient is being admitted in ICU. IV fluid normal saline 1 L given in ED. Started on D5 half NS. Antiemetic as needed for symptomatic management. Started on Precedex drip. Ativan IV as needed for CIWA score to control symptoms. Consult 180 on next working day, probably on Friday. Request consult cigarette making machine hopper feeder. Patient also on gabapentin, hydroxyzine, Imodium, Bentyl for symptomatic management. On thiamine folic acid. Seizure precaution. One-time hematemesis, upper GI bleed. Monitor CBC 2. Hyponatremia, hypochloremia, increased high anion gap metabolic acidosis lactic acidosis: Started on D5 NS +20 M EQ IV KCl at 50 mill per hour. Monitor intake and output. Serum magnesium and phosphorus normal. Lactic acidosis 7.3. Hyperglycemia glucose 164. Patient does not have history of diabetes mellitus. Serum acetone negative. Lipase normal. 3. History of chronic alcohol use and dependence with multiple relapses: Patient was last admitted in 2017 but he still drinks. 4. Acute on chronic alcoholic hepatitis: Patient transaminases has been elevated since April 2018. AST 177, ALT 122, total bilirubin 1.1, A/G ratio 1.1. 5. Intermittent chronic smoking: Patient smoked 3 weeks ago. On nicotine patch. Patient denies other substance use including cocaine, opioids, Bath salt or other street drugs. U tox ordered. Patient has history of methamphetamine in the past. 6. Possible UTI/cystitis: UA and urine culture ordered: Patient is states he had stinging sensation in the urine unclear about burning micturition/dysuria. It is dark color due to dehydration. After urine is collected we will start empirically on IV ceftriaxone. No fever VTE prophylaxis, moderate risk. Patient has mild hematosis one-time 3 4 days ago therefore pharmacological prophylaxis contraindicated. Bilateral SCDs Living will/advanced directive/end of life care: Patient does not have living will or advanced directive. His girlfriend is next to kin who has been for last 4 years. After discussion of benefits/risks procedures involved with full code, DNR CC arrest and DNR CC, the patient and her girlfriend opted for full code Patient does want artificial life support including intubation, tube feed, ventilator and/chest compression, central venous catheter, vasopressor and DC shock if needed Total time spent in [id number] encounter in discussion of advanced directive 16 minutes. Charges/Coding Visit Charges Inpatient E&M: 12357 Init Hosp L3 Procedures Hospitalists Procedures: 40562 Advncd Care Plan 30 Min
[2021-12-01] MEDS: Dext 5%-0.45% NS 1,000 ML 200 ML IV (12:28)
--- NOTE | 2021-12-01 12:43 | CM.ED ---
Social Work Mary present in hospital. This social welfare administrator updated Mary, treatment navigator on patient admission to [facility]. Mary to follow up with patient on discharge planning. Osmar APPIAH, JOSE GUADALUPES
--- NOTE | 2021-12-01 12:47 | ED.RN ---
Report given to Jaylin in ICU. ok for floor.
[2021-12-01 12:52] LABS: Lipase 216 U/L (73-393); Magnesium 1.9 mg/dL (1.6-2.6); Phosphorus 3.6 mg/dL (2.5-4.9)
--- NOTE | 2021-12-01 14:00 | CASEMGMT ---
Social Work Consult: Self-Pay Referral source: RN GRADY Met with patient in room. Introduced self and older adult social work specialist role. Patient agreeable to speak with this older adult social work specialist. This older adult social work specialist approached topic of self-pay status. Patient states to have quite job three weeks ago and to now not have insurance or any form of income. Patient states to have some savings. Patient with questions about medicaid application process. This older adult social work specialist able to answer patient questions. This older adult social work specialist does not have medicaid application on hand and will follow up with patient later on completing application. Patient identifies step mother, Sasha Navin as main person to contact in regards to patient case and plan of care. Patient things that Sasha would be willing to be patient authorized hobbies and crafts sales representative for patient medicaid application. Patient agreeable to medical team speaking with Sasha. Patient aware that unable to have visitors or phone calls due to RAMP. Active support and listening provided. Social work to continue to follow. Osmar Chaudhry MSW, SMILEY
[2021-12-01 14:18] LABS: Bacteria 0 SEEN /hpf (None Seen); Mucous, Urine 0 SEEN /hpf (<or=2+); Red Blood Cells-Urine 0 SEEN /hpf (0-5)
[2021-12-01 14:27] LABS: Color, Urine Yellow (Yellow); Glucose, Dipstick Normal (Normal); Leukocyte Esterase-Dipstick 25 /ul (Negative); Nitrite-Dipstick Negative (Negative); Occult Blood-Urine Negative /ul (Negative); Protein-Dipstick 100 mg/dl (Negative); Specific Gravity, Urine 1.025 (1.002-1.030); Urine Bilirubin Dipstick Negative (Negative); Urine Clarity Clear (Clear); Urine Urobilinogen 1 mg/dl (Normal)
[2021-12-01 14:39] LABS: Amphetamine Urine VISTA NEGATIVE (<1000 ng/mL); Barbiturate Urine VISTA NEGATIVE (< 200 ng/mL); Benzodiazepine Urine VISTA NEGATIVE (< 200 ng/mL); Cocaine Urine VISTA NEGATIVE (< 300 ng/mL); Ecstacy Urine VISTA POSITIVE (< 500 ng/mL); Methadone Urine VISTA NEGATIVE (< 300 ng/mL); PCP Urine VISTA NEGATIVE (< 25 ng/mL); THC Urine VISTA NEGATIVE (< 50 ng/mL); Vista UDS pH Range 5
[2021-12-01 14:41] LABS: Ketone-Dipstick 150 mg/dl (Negative)
[2021-12-01 15:06] LABS: Reflex Lactate? Y
[2021-12-01 15:07] LABS: Amorphous Sediment 2+; White Blood Cells 0-5 SEEN /hpf (0-5)
[2021-12-01 15:08] LABS: Squamous Epithelial Cells - UA 0-5 SEEN /hpf (0-5)
--- NOTE | 2021-12-01 15:15 | CASEMGMT ---
Social Work Telephone call from patient step mother, Sasha Holden. Sasha with multiple concerns about patient being okay. Sasha reports that patient has gone through 7 rehabs and just cant get better. This social service agency director engaging in conversation with Sasha about addiction process and recovery. Sasha states that patient recently moved out from living with Sasha for the past 30 [address] has own [address]. Sasha request to be updated on patient care and plan. This social service agency director communicating that patient did identify Sasha as primary support person but can not guarantee that Sasha will received updates on plan of care but that message will be provided to team. Active support and listening provided. Osmar Chaudhry MSW, JASPREET-S
[2021-12-01] MEDS: Gabapentin 300 MG Capsule PO (16:34)
--- NOTE | 2021-12-01 18:07 | CASEMGMT ---
Social Work This professor of social work back to patient room to assist patient in completing [employer]OU[employer] application. Patient now sleeping and did not wake up upon this professor of social work entering the room and saying patient name. Social Work to continue to follow. Osmar APPIAH, SMILEY
[2021-12-01] MEDS: LORazepam 1 MG Tablet 2 MG PO (21:19)
[2021-12-01] MEDS: 0.9% Saline Lock 10 ML Syringe IV (23:04)
[2021-12-02] VITALS (28 sets, daily range): BP systolic 114–148; BP diastolic 73–97; PULSE 65–89; RESP 17–27; TEMP 36.3–36.6; O2SAT 91–99
[2021-12-02] MEDS: LORazepam 1 MG Tablet 2 MG PO ×5 (01:34→21:50)
[2021-12-02 04:21] LABS: Absolute Lymphocyte Count 0.77 X10^3/uL (0.83-4.51); Absolute Neutrophil Count 3.3 X10^3/uL (2.0-7.7); Basophil# 0.01 X10^3/uL; Basophil% 0.2 % (0-1); Eosinophil# 0.03 X10^3/uL; Eosinophils% 0.7 % (0-5); Hematocrit 36.1 % (40-54); Hemoglobin 12.8 g/dL (13.0-16.5); Lymphocyte # 0.77 X10^3/ul (0.83-4.51); Lymphocyte % 17.2 % (19-41); Mean Corp Hgb Conc 35.5 g/dL (32-36); Mean Corpuscular Hgb 33.7 pg (27.0-32.0); Mean Platelet Vol. 10.2 fl (6.2-12.0); Monocyte# 0.33 X10^3/uL; Monocyte% 7.4 % (0-10); NRBC Flagged by Analyzer 0 % (0-5); Neutrophil # 3.31 X10^3/uL (2.7-7.7); Neutrophil % 74.1 % (47-70); POSITIVE COUNT YES; Platelet Count 69 K/mm3 (150-450); RBC Distribution Width CV 14.6 % (11.6-14.6); RBC Distribution Width SD 50.6 fl (35.1-43.9); White Blood Count 4.5 K/mm3 (4.4-11.0)
[2021-12-02 04:22] LABS: Differential Indicated SCAN CRITERIA MET
[2021-12-02 05:02] LABS: AST(SGOT) 91 U/L (15-37); Alanine Aminotransfer ALT/SGPT 75 U/L (16-61); Albumin, Serum 2.9 g/dL (3.2-5.0); Alkaline Phosphatase 69 U/L (45-117); Anion Gap 3 (5-15); BUN 12 mg/dL (7-18); BUN/Creat Ratio 15.6 RATIO (10-20); Calcium,Total 7.8 mg/dL (8.5-10.1); Chloride 105 mmol/L (98-107); Creatinine, Serum 0.77 mg/dL (0.70-1.30); EST Glomerular Filtration Rate 113 mL/min (>60); Est Glom Filt Rate - Afr Amer 136 mL/min (>60); Estimated Creatinine Clearance 115.87 ml/min; Globulin 2.8 g/dL (2.2-4.2); Glucose 148 mg/dL (74-106); Potassium 3.6 mmol/L (3.5-5.1); Protein, Total 5.7 g/dL (6.4-8.2); Sodium Level 136 mmol/L (136-145)
[2021-12-02 05:08] LABS: Differential Comment SCANNED; Platelet Estimate SLT DEC (ADEQ)
[2021-12-02] MEDS: TITRATION PARAMETER CHANGE 1 EACH IV (05:15)
--- NOTE | 2021-12-02 05:35 | NURSING ---
12/02/21- During 399 CIWA assessment patient requested Ativan mid way through assessment. This nurse explained to him that his CIWA score would determine his need for Ativan. After completing his CIWA assessment it was determined that the patient did not score high enough for Ativan. See CIWA charting. After explaining this to patient he stated, then my answer is yes to all your questions then. This nurse then explained and reinforced the reason for the CIWA assessment and scoring and information on Ativan with respect to adverse effects. Explanation was given about frequent assessment of need for Ativan and current Precedex gtt therapy. Will continue to monitor for withdraw symptoms and medicate appropriately.
--- NOTE | 2021-12-02 05:48 | CON.PCM.CC_ITS ---
Assessment & Plan Assessment/Plan (1) Alcohol withdrawal: PLAN: RECOMMENDATIONS: 1. Continue Precedex for symptom control of delirium tremens. 2. Aggressive electrolyte repletion as needed. 3. Continue thiamine and folic acid. 4. Continue as needed Ativan for breakthrough symptoms. 5. Continue supplemental IV fluid hydration until diet can be advanced. 6. Encourage incentive spirometer use and mobilize patient as tolerated. IMPRESSIONS: 1. Acute alcohol withdrawal The patient's last alcohol ingestion was approximately 2 to 3 days ago. He will be continued on Precedex along with as needed Ativan for symptom control of his delirium tremens. Plan to continue thiamine and folic acid repletion. Supplemental IV fluids will be continued, until the patient's diet can be advanced. Continue aggressive electrolyte repletion, as needed. 2. Anemia/thrombocytopenia The patient has chronic anemia and thrombocytopenia. His interval worsening in his counts is secondary to dilution in the setting of volume resuscitation due to intravascular volume depletion. There are no overt signs of blood loss. No indication for transfusion at this time. Continue to monitor clinically. 3. Chronic tobacco dependency/obesity Complicates care, management, recovery and prognosis. I personally spent 3 minutes discussing the deleterious effects of continued tobacco use with the patient, including modalities which could utilize to achieve a smoke-free lifestyle. Nicotine replacement therapy can be utilized while the patient is admitted to the hospital. This note was generated with [employer] dictation software. It may contain incorrect words, spelling, and punctuation that were not noted in checking the note before signing. HPI Consult Data Date of Consult: 12/02/21 HPI Narrative Reason for Consultation: Acute alcohol withdrawal HPI Narrative: The patient is a 51-year-old male, with a history as outlined below, who presented to the emergency department via EMS on December 01 over concerns for acute alcohol withdrawal. The patient had noted some nausea, decreased p.o. intake and vomiting of several days duration. The patient reported that he typically drinks between 1/5 and a liter of vodka per day. His last drink was apparently 2 to 3 days ago. He has no history of prior alcohol withdrawal seizures. He does have a longstanding tobacco abuse history and continues to smoke 0.25 packs of cigarettes per day. Prior liver ultrasound from 2018 demonstrated hepatomegaly with fatty infiltration of the liver. On presentation to the emergency department, the patient was noted to be tachycardic but was otherwise hemodynamically stable on room air. Initial laboratory evaluation revealed no evidence of a leukocytosis. The patient was thrombocytopenic with a platelet count of 111,000. Chemistry profile was notable for a sodium of 132, chloride of 93, anion gap of 17, BUN of 21 and creatinine of 1.39. Initial lactate was elevated at 7.3. Total bili was increased at 1.1 with an AST of 177 and ALT of 122. Lipase was within normal limits. Alcohol level was noted to be 88. Acetone level was negative. The patient was ultimately placed on a Precedex infusion for symptom control of his delirium tremens and received supplemental IV fluid hydration. He was transferred to the medical intensive care unit for further management. [facility] Medical History Anxiety Hypertension Smoker Home Medications fluvoxamine 100 mg PO BID 30 Days #60 tab 05/11/18 [Rx Last Taken Unknown] gabapentin 300 mg PO TIDCM 30 Days #90 cap 05/11/18 [Rx Last Taken Unknown] trazodone 300 mg PO QHS PRN 30 Days #60 tab 05/11/18 [Rx Last Taken Unknown] Allergy/AdvReac Type Severity Reaction Status Date / Time amoxicillin AdvReac Upset Verified 12/01/21 10:33 Stomach Social History Smoking Status: Current some day smoker tobacco type: cigarettes ROS Constitutional Constitutional: Reports fatigue and weakness Eyes Eyes: Denies blurry vision or change in vision ENT HEENT: Denies dizziness, dysphagia, epistaxis or headache(s) Cardiovascular Cardiovascular: Denies chest pain, dizziness or dyspnea Respiratory/Chest Respiratory/Chest: Denies cough, dyspnea or hemoptysis Gastrointestinal Gastrointestinal: Reports nausea and vomiting Genitourinary Genitourinary: Denies difficulty urinating or dysuria Musculoskeletal Musculoskeletal: Denies arthralgias or back pain Integumentary Integumentary: Denies lesions, rash or skin ulcer Neurologic Neurologic: Denies abnormal gait or abnormal speech Psychiatric Psychiatric: Denies anxiety or depression Endocrine Endocrinology: Reports fatigue Hematologic/Lymphatic Hematologic/Lymphatic: Denies easy bleeding or easy bruising Physical Exam Const alert and no apparent distress General Appearance: cooperative Nutritional Appearance: obese HEENT normocephalic and head/scalp atraumatic Eyes PERRL and EOMs intact bilaterally Neck supple General: trachea midline Chest inspection of chest normal Resp Auscultation: diminished lung sounds; Negative for rales, rhonchi or wheezes Cardio regular rate and regular rhythm GI normal to inspection, nondistended, normoactive bowel sounds Extremity no clubbing, cyanosis or edema Skin no rashes or lesions noted Neuro CN's II-XII intact bilaterally and no focal motor deficits Psych Mood & Affect: flat affect Lab / Micro Data Result Diagrams: 12/02/21 03:50 12/02/21 03:50 Labs: Laboratory Results - last 24 hr 12/01/21 10:57: WBC 9.0, RBC 4.90, Hgb 16.4, Hct 45.7, MCV 93.3, MCH 33.5 H, MCHC 35.9, RDW Std Deviation 51.8 H, RDW Coeff of Guicho 14.9 H, Plt Count 111 L, MPV 9.7, Immature Gran % (Auto) 0.400, Neut % (Auto) 76.9 H, Lymph % (Auto) 10.2 L, [place] % (Auto) 9.5, Eos % (Auto) 2.7, Baso % (Auto) 0.3, Absolute Neuts (auto) 7.0, Absolute Lymphs (auto) 0.92, Nucleated RBC % 0 12/01/21 10:57: PT 12.7, INR 1.0 12/01/21 10:57: Sodium 132 L, Potassium 4.1, Chloride 93 L, Carbon Dioxide 22.0, Anion Gap 17 H, BUN 21 H, Creatinine 1.39 H, Estim Creat Clear Calc 64.19, Est GFR (MDRD) Af Amer 69, Est GFR (MDRD) Non-Af 57 L, BUN/Creatinine Ratio 15.1, Glucose 164 H, Calcium 8.8, Total Bilirubin 1.10 H, AST 177 H, ALT 122 H, Alkaline Phosphatase 103, Total Protein 8.0, Albumin 4.2, Globulin 3.8, Albumin/Globulin Ratio 1.1 12/01/21 10:57: Ethyl Alcohol 88.0 12/01/21 10:57: Lactic Acid 7.3 H* 12/01/21 10:57: Acetone Level NEGATIVE 12/01/21 10:57: Phosphorus 3.6, Magnesium 1.9, Lipase 216 12/01/21 13:10: Urine Opiates Screen NEGATIVE, Urine Methadone Screen NEGATIVE, Ur Barbiturates Screen NEGATIVE, Ur Phencyclidine Scrn NEGATIVE, Ur Amphetamines Screen NEGATIVE, MDMA (Ecstasy) Screen POSITIVE H, U Benzodiazepines Scrn NEGATIVE, Urine Cocaine Screen NEGATIVE, U Cannabinoids Screen NEGATIVE, Ur Drug Screen Comment 12/01/21 13:10: Urine Color Yellow, Urine Clarity Clear, Urine pH 5.0, Ur Specific Corder 1.025, Urine Protein 100 H, Urine Glucose (UA) Normal, Urine Ketones 150 A*, Urine Occult Blood Negative, Urine Nitrite Negative, Urine Bilirubin Negative, Urine Urobilinogen 1 H, Ur Leukocyte Esterase 25 H, Urine RBC 0 SEEN, Urine WBC 0-5 SEEN, Ur Squamous Epith Cells 0-5 SEEN, Amorphous Sediment 2+, Urine Bacteria 0 SEEN, Urine Mucus 0 SEEN 12/01/21 15:15: Lactic Acid 1.0 12/02/21 03:50: WBC 4.5, RBC 3.80 L, Hgb 12.8 L, Hct 36.1 L, MCV 95.0 H, MCH 33.7 H, MCHC 35.5, RDW Std Deviation 50.6 H, RDW Coeff of Guicho 14.6, Plt Count 69 L, MPV 10.2, Immature Gran % (Auto) 0.400, Neut % (Auto) 74.1 H, Lymph % (Auto) 17.2 L, [place] % (Auto) 7.4, Eos % (Auto) 0.7, Baso % (Auto) 0.2, Absolute Neuts (auto) 3.3, Absolute Lymphs (auto) 0.77 L, Nucleated RBC % 0, Differential Comment SCANNED, Platelet Estimate SLT 12/02/21 03:50: Sodium 136, Potassium 3.6, Chloride 105, Carbon Dioxide 28.0, Anion Gap 3 L, BUN 12, Creatinine 0.77, Estim Creat Clear Calc 115.87, Est GFR (MDRD) Af Amer 136, Est GFR (MDRD) Non-Af 113, BUN/Creatinine Ratio 15.6, Glucose 148 H, Calcium 7.8 L, Total Bilirubin 1.00, AST 91 H, ALT 75 H, Alkaline Phosphatase 69, Total Protein 5.7 L, Albumin 2.9 L, Globulin 2.8, Albumin/Globulin Ratio 1.0 Charges/Coding Visit Charges Inpatient E&M: 32730 Init Hosp L3 Behavior Interventions Behavior Intervention: 11219 Smoking Cessation 3-10 min
--- NOTE | 2021-12-02 05:55 | EKG12_ITS ---
Test Reason : AM EKG Blood Pressure : / mmHG Vent. Rate : 069 BPM Atrial Rate : 069 BPM P-R Int : 178 ms QRS Dur : 100 ms QT Int : 436 ms P-R-T Axes : 047 013 015 degrees QTc Int : 467 ms Poor data quality, interpretation may be adversely affected Normal sinus rhythm Normal ECG When compared with ECG of 01-DEC-2021 10:51, MANUAL COMPARISON REQUIRED, DATA IS UNCONFIRMED Confirmed by ANDRE LAKE, HARJINDER ([id number]), city editor ELVI MORA ([id number]) on 12/07/2021 1:31:21 PM Referred By: YANNA Confirmed By:JC POWELL MD
--- NOTE | 2021-12-02 07:09 | PCM.PN.HOSP ---
Subjective Subjective Follow-up for severe alcohol withdrawal syndrome on Precedex drip Patient still anxious, tremulous and shaking. Overnight the tachycardia and hypertension has resolved. Patient is still needs 2 people assistance to move from bed to commode, poor balance and incoordination. The urine is clear. Patient had loose liquid brown bowel movement. Objective Data Objective Data Vital Signs: Vital Signs Temp Pulse Resp BP Pulse Ox 97.7 F L 65 17 127/86 H 99 12/02/21 04:00 12/02/21 06:00 12/02/21 06:00 12/02/21 06:00 12/02/21 06:00 Oxygen Flow Rate (L/min) 2 Oxygen Delivery Method Nasal Cannula Weight: 235 lb 0.204 oz Body Mass Index (BMI) 32.5 Intake & Output: Intake and Output for Last 24 Hours 11/30/21 12/01/21 12/02/21 23:59 23:59 23:59 Intake Total 3385.51 / 4198.31 2919.55 / 2919.55 Output Total 400 / 975 575 / 575 Balance 2985.51 / 3223.31 2344.55 / 2344.55 Lab / Micro Data Result Diagrams: 12/02/21 03:50 12/02/21 03:50 Labs: Laboratory Results - last 24 hr 12/01/21 10:57: WBC 9.0, RBC 4.90, Hgb 16.4, Hct 45.7, MCV 93.3, MCH 33.5 H, MCHC 35.9, RDW Std Deviation 51.8 H, RDW Coeff of [place]icho 14.9 H, Plt Count 111 L, MPV 9.7, Immature Gran % (Auto) 0.400, Neut % (Auto) 76.9 H, Lymph % (Auto) 10.2 L, [place] % (Auto) 9.5, Eos % (Auto) 2.7, Baso % (Auto) 0.3, Absolute Neuts (auto) 7.0, Absolute Lymphs (auto) 0.92, Nucleated RBC % 0 12/01/21 10:57: PT 12.7, INR 1.0 12/01/21 10:57: Sodium 132 L, Potassium 4.1, Chloride 93 L, Carbon Dioxide 22.0, Anion Gap 17 H, BUN 21 H, Creatinine 1.39 H, Estim Creat Clear Calc 64.19, Est GFR (MDRD) Af Amer 69, Est GFR (MDRD) Non-Af 57 L, BUN/Creatinine Ratio 15.1, Glucose 164 H, Calcium 8.8, Total Bilirubin 1.10 H, AST 177 H, ALT 122 H, Alkaline Phosphatase 103, Total Protein 8.0, Albumin 4.2, Globulin 3.8, Albumin/Globulin Ratio 1.1 12/01/21 10:57: Ethyl Alcohol 88.0 12/01/21 10:57: Lactic Acid 7.3 H* 12/01/21 10:57: Acetone Level NEGATIVE 12/01/21 10:57: Phosphorus 3.6, Magnesium 1.9, Lipase 216 12/01/21 13:10: Urine Opiates Screen NEGATIVE, Urine Methadone Screen NEGATIVE, Ur Barbiturates Screen NEGATIVE, Ur Phencyclidine Scrn NEGATIVE, Ur Amphetamines Screen NEGATIVE, MDMA (Ecstasy) Screen POSITIVE H, U Benzodiazepines Scrn NEGATIVE, Urine Cocaine Screen NEGATIVE, U Cannabinoids Screen NEGATIVE, Ur Drug Screen Comment 12/01/21 13:10: Urine Color Yellow, Urine Clarity Clear, Urine pH 5.0, Ur Specific [place] 1.025, Urine Protein 100 H, Urine Glucose (UA) Normal, Urine Ketones 150 A*, Urine Occult Blood Negative, Urine Nitrite Negative, Urine Bilirubin Negative, Urine Urobilinogen 1 H, Ur Leukocyte Esterase 25 H, Urine RBC 0 SEEN, Urine WBC 0-5 SEEN, Ur Squamous Epith Cells 0-5 SEEN, Amorphous Sediment 2+, Urine Bacteria 0 SEEN, Urine Mucus 0 SEEN 12/01/21 15:15: Lactic Acid 1.0 12/02/21 03:50: WBC 4.5, RBC 3.80 L, Hgb 12.8 L, Hct 36.1 L, MCV 95.0 H, MCH 33.7 H, MCHC 35.5, RDW Std Deviation 50.6 H, RDW Coeff of [place]icho 14.6, Plt Count 69 L, MPV 10.2, Immature Gran % (Auto) 0.400, Neut % (Auto) 74.1 H, Lymph % (Auto) 17.2 L, [place] % (Auto) 7.4, Eos % (Auto) 0.7, Baso % (Auto) 0.2, Absolute Neuts (auto) 3.3, Absolute Lymphs (auto) 0.77 L, Nucleated RBC % 0, Differential Comment SCANNED, Platelet Estimate SLT 12/02/21 03:50: Sodium 136, Potassium 3.6, Chloride 105, Carbon Dioxide 28.0, Anion Gap 3 L, BUN 12, Creatinine 0.77, Estim Creat Clear Calc 115.87, Est GFR (MDRD) Af Amer 136, Est GFR (MDRD) Non-Af 113, BUN/Creatinine Ratio 15.6, Glucose 148 H, Calcium 7.8 L, Total Bilirubin 1.00, AST 91 H, ALT 75 H, Alkaline Phosphatase 69, Total Protein 5.7 L, Albumin 2.9 L, Globulin 2.8, Albumin/Globulin Ratio 1.0 Physical Exam Narrative General: Awake, alert oriented x3. Generalized flushing of the skin HEENT: Atraumatic, PERRLA, EOMI, Normocephalic Oral: Oral mucosa still dry. No Gingival or Mucosal Lesions/ Ulcerations Neck: Supple, No JVD, Negative Carotid Bruits Lungs: Air entry diminished in bilateral lung bases. No crepitation/rhonchi Cardiovascular: Sinus rhythm, Normal S1, Normal S2, No murmurs Abdomen: Mild tenderness over right upper quadrant. Liver not enlarged. Liver dullness starts at right sixth intercostal space mid axillary line. bowel Sounds Present, Soft, nondistended : No renal angle tenderness. No suprapubic tenderness. Extremities: No edema, Capillary Refill Less than 3 Seconds Skin: Flushed skin over the face. Dry skin. Musculoskeletal: No Tenderness to Palpation of Joints or Extremities Neurological: No seizure. Cranial nerves II-XII grossly intact, DTR 2+/4 and Symmetrical Psych/Mental Status: Intermittent hallucinations, flat affect Assessment & Plan Assessment/Plan (1) Alcohol withdrawal delirium, acute, hyperactive: PLAN: 1. Severe acute alcohol withdrawal syndrome with psychotic symptoms and delirium: Patient having intrusive thoughts, hallucinations, tachycardia, hypertension, tremors, nausea and vomiting and severe dehydration. Serum alcohol level 88. Patient is being admitted in ICU. IV fluid normal saline 1 L given in ED. Started on D5 half NS. Antiemetic as needed for symptomatic management. Started on Precedex drip. Ativan IV as needed for CIWA score to control symptoms. Consult 180 on Friday. Patient also on gabapentin, hydroxyzine, Imodium, Bentyl for symptomatic management. On thiamine folic acid. Seizure precaution. One-time hematemesis, upper GI bleed. Monitor CBC 12/02: Tachycardia hypotension has resolved. Blood pressure 136/22. Patient still dehydrated, severely tremulous, gait incoordination and shaking.CIWA score 9.Continue D5 half normal saline with With 20 mEq IV KCl. Patient still needs ICU care on Precedex drip. Anemia of chronic disease probably from a chronic alcohol use and thrombocytopenia: H&H dropped from from 16.4-12.8 gram percent, mainly due to vigorous IV fluid resuscitation. Platelet count decreased from 111-169K. Patient has chronic alcohol induced thrombocytopenia and in the past since 2017 his platelet has been around 1 20,000 intermittently. Monitor CBC daily. Discussed with nursing staff. Transit Bus Operator consult reviewed and appreciated. 2. Hyponatremia, hypochloremia, increased high anion gap metabolic acidosis lactic acidosis: Started on D5 NS +20 M EQ IV KCl at 50 mill per hour. Monitor intake and output. Serum magnesium and phosphorus normal. Lactic acidosis 7.3. Hyperglycemia glucose 164. Patient does not have history of diabetes mellitus. Serum acetone negative. Lipase normal. 12/02: Mild hypokalemia and hypophosphatemia: Potassium phosphate is getting replaced. Monitor BMP, magnesium and phosphorus. Aggressive electrolytes replacement. 3. History of chronic alcohol use and dependence with multiple relapses: Patient was last admitted in 2018 but he still drinks. 4. Acute on chronic alcoholic hepatitis: Patient transaminases has been elevated since April 2018. AST 177, ALT 122, total bilirubin 1.1, A/G ratio 1.1. 12/02: ALT and AST improving. Right upper quadrant sonogram tomorrow a.m. as per the he had fatty liver in the past which is more central alcoholic hepatitis. 5. Intermittent chronic smoking: Patient smoked 3 weeks ago. On nicotine patch. Patient denies other substance use including cocaine, opioids, Bath salt or other street drugs. U tox ordered. Patient has history of methamphetamine in the past. 6. Possible UTI/cystitis: UA and urine culture ordered: Patient is states he had stinging sensation in the urine unclear about burning micturition/dysuria. It is dark color due to dehydration. After urine is collected we will start empirically on IV ceftriaxone. No fever VTE prophylaxis, moderate risk. Patient has mild hematosis one-time 3 4 days ago therefore pharmacological prophylaxis contraindicated. Bilateral SCDs Total time of the visit including total time spent in counseling or coordination of care, (more than 50% of the total time, spent in obtaining medical information from nurses and other ancillary care providers,explaining to the patient about labs, imaging, diagnosis and management), discussion with intensive, review of labs and imaging is 40 minutes. Living will/advanced directive/end of life care: Patient does not have living will or advanced directive. His girlfriend is next to kin who has been for last 4 years. After discussion of benefits/risks procedures involved with full code, DNR CC arrest and DNR CC, the patient and her girlfriend opted for full code Patient does want artificial life support including intubation, tube feed, ventilator and/chest compression, central venous catheter, vasopressor and DC shock if needed Charges/Coding Visit Charges Inpatient E&M: 04069 Subs Hosp L3
[2021-12-02 07:29] LABS: Magnesium 1.8 mg/dL (1.6-2.6); Phosphorus 1.9 mg/dL (2.5-4.9)
[2021-12-02] MEDS: CHLORHEXIDINE GLUC 2% CLOTH 1 EACH TOWELETTE TOPICAL (07:39)
[2021-12-02] MEDS: hydrOXYzine PAM 25 MG Capsule PO ×2 (07:39→19:24)
[2021-12-02] MEDS: Thiamine Hydrochloride 100 MG Tablet PO (07:39)
[2021-12-02] MEDS: Folic Acid 1 MG Tablet PO (07:39)
[2021-12-02] MEDS: Gabapentin 300 MG Capsule PO ×3 (07:39→15:37)
[2021-12-02] MEDS: Potassium Chloride Oral Tablet 20 MEQ 40 MEQ PO (08:04)
[2021-12-02] MEDS: Loperamide 2 MG Capsule PO ×3 (11:32→21:49)
[2021-12-02] MEDS: Dicyclomine 10 MG Capsule 20 MG PO (19:23)
[2021-12-02] MEDS: 0.9% Saline Lock 10 ML Syringe IV (21:49)
[2021-12-02] MEDS: Acetaminophen 325 MG Tablet 650 MG PO (21:49)
[2021-12-03] VITALS (17 sets, daily range): BP systolic 115–156; BP diastolic 71–107; PULSE 67–125; RESP 17–26; TEMP 36.1–37.2; O2SAT 93–99
[2021-12-03] MEDS: hydrOXYzine PAM 25 MG Capsule PO ×3 (00:16→18:12)
[2021-12-03 03:49] LABS: Absolute Lymphocyte Count 1.14 X10^3/uL (0.83-4.51); Absolute Neutrophil Count 3.2 X10^3/uL (2.0-7.7); Basophil# 0.02 X10^3/uL; Basophil% 0.4 % (0-1); Eosinophil# 0.09 X10^3/uL; Eosinophils% 1.9 % (0-5); Hematocrit 41.3 % (40-54); Hemoglobin 14.6 g/dL (13.0-16.5); Lymphocyte # 1.14 X10^3/ul (0.83-4.51); Lymphocyte % 23.6 % (19-41); Mean Corp Hgb Conc 35.4 g/dL (32-36); Mean Corpuscular Hgb 33.7 pg (27.0-32.0); Mean Corpuscular Volume 95.4 fL (80-94); Mean Platelet Vol. 10.4 fl (6.2-12.0); Monocyte# 0.38 X10^3/uL; Monocyte% 7.9 % (0-10); NRBC Flagged by Analyzer 0 % (0-5); Neutrophil # 3.17 X10^3/uL (2.7-7.7); Neutrophil % 65.4 % (47-70); POSITIVE COUNT YES; Platelet Count 70 K/mm3 (150-450); RBC Distribution Width CV 14.6 % (11.6-14.6); RBC Distribution Width SD 50.6 fl (35.1-43.9); Red Blood Count 4.33 M/mm3 (4.6-6.2); White Blood Count 4.8 K/mm3 (4.4-11.0)
[2021-12-03 04:04] LABS: ALB/GLOB Ratio 0.9 RATIO (0.9-2.4); AST(SGOT) 113 U/L (15-37); Alanine Aminotransfer ALT/SGPT 91 U/L (16-61); Albumin, Serum 3.2 g/dL (3.2-5.0); Alkaline Phosphatase 92 U/L (45-117); Anion Gap 5 (5-15); BUN 6 mg/dL (7-18); BUN/Creat Ratio 7.5 RATIO (10-20); Calcium,Total 8.6 mg/dL (8.5-10.1); Chloride 105 mmol/L (98-107); EST Glomerular Filtration Rate 108 mL/min (>60); Est Glom Filt Rate - Afr Amer 130 mL/min (>60); Estimated Creatinine Clearance 111.53 ml/min; Globulin 3.4 g/dL (2.2-4.2); Glucose 112 mg/dL (74-106); Magnesium 1.7 mg/dL (1.6-2.6); Phosphorus 3.6 mg/dL (2.5-4.9); Potassium 4.2 mmol/L (3.5-5.1); Protein, Total 6.6 g/dL (6.4-8.2); Sodium Level 137 mmol/L (136-145)
[2021-12-03] MEDS: LORazepam 1 MG Tablet 2 MG PO ×2 (04:21→14:15)
[2021-12-03] MEDS: Dicyclomine 10 MG Capsule 20 MG PO (04:21)
--- NOTE | 2021-12-03 05:55 | US_ITS ---
STUDY: ABDOMINAL ULTRASOUND - RIGHT UPPER QUADRANT REASON FOR VISIT: Male, 51 years old Acute acute on chronic alcoholic hepatitis TECHNIQUE: Ultrasound evaluation of the right upper quadrant was performed with real-time and static peterson-scale imaging. TECHNICAL QUALITY: Adequate. COMPARISON: Comparison is made with prior examination dated 05/04/2018. FINDINGS: Liver: The liver is enlarged and measures 18.6 cm. There is increased echogenicity consistent with fatty infiltration. The bile ducts are within normal limits. There is hepatic color flow. The direction of portal flow is hepatopetal. There is no demonstrated mass lesion. Gallbladder: Normal distended gallbladder. The gallbladder wall measures 2 mm. There is a negative sonographic Jarquin''s sign. There is no pericholecystic fluid. There are no gallstones. Common Bile Duct (C.B.D.): The common bile duct measures 6 mm. Pancreas: Normal size of the head, body and tail of the pancreas. There is normal echogenicity of the pancreas. There is no demonstrated pancreatic mass or cyst. Right Kidney: Normal size of the right kidney. The right kidney measures 10.4 cm x 6.5 cm x 5.7 cm. Normal renal cortex. The right cortex measures 1.8 cm. There is no demonstrated renal mass or cyst. There is no right hydronephrosis. US/Abdomen Limited IMPRESSION: Mild hepatomegaly and fatty infiltration of the liver. Electronically Signed: Perry Mckeon MD at 10:00 EDT ,
[2021-12-03] MEDS: Phenobarbital 32.4 MG Tablet 64.8 MG PO ×5 (06:16→21:34)
--- NOTE | 2021-12-03 06:40 | PN.CC_ITS ---
Assessment & Plan Assessment/Plan (1) Alcohol withdrawal: PLAN: RECOMMENDATIONS: 1. Continue Precedex for symptom control of delirium tremens. 2. Aggressive electrolyte repletion as needed. 3. Continue thiamine and folic acid to complete 3 days. 4. Continue as needed Ativan for breakthrough symptoms. Add phenobarbital 5. Possibly discontinue IV fluids later today 6. Encourage incentive spirometer use and mobilize patient as tolerated. IMPRESSIONS: 1. Acute alcohol withdrawal The patient's last alcohol ingestion was approximately 2 to 3 days prior to admission. The patient will be continued on Precedex along with as needed Ativan for symptom control of his delirium tremens. We will add phenobarb to help with discontinuation of Precedex. Plan to continue thiamine and folic acid repletion. Possible discontinuation of IV fluids later today. Continue aggressive electrolyte repletion, as needed. 2. Anemia/thrombocytopenia The patient has chronic anemia and thrombocytopenia. His interval worsening in his counts is secondary to dilution in the setting of volume resuscitation due to intravascular volume depletion. There are no overt signs of blood loss. No indication for transfusion at this time. Continue to monitor clinically. 3. Chronic tobacco dependency/obesity Complicates care, management, recovery and prognosis. Okay to use israel gerard replacement therapy. Subjective Subjective Patient did okay overnight. No acute issues were reported. Patient did receive 2 doses of Ativan in addition to the Precedex secondary to high CIWA scores. Patient believes his symptoms are controlled at this time. Patient has had some loose bowel movements. Patient is reporting some abdominal discomfort, but does not grimace with deep palpation on exam. Objective Data Objective Data Vital Signs: Vital Signs Temp Pulse Resp BP Pulse Ox 36.8 C 67 20 H 138/93 H 95 12/03/21 04:00 12/03/21 06:00 12/03/21 06:00 12/03/21 06:00 12/03/21 06:00 Oxygen Flow Rate (L/min) 2 Oxygen Delivery Method Room Air Weight: 106.8 kg Body Mass Index (BMI) 32.5 Intake & Output: Intake and Output for Last 24 Hours 12/01/21 12/02/21 12/03/21 23:59 23:59 23:59 Intake Total 3385.51 / 4198.31 7617.86 / 7769.76 326.55 / 326.55 Output Total 400 / 975 2975 / 3475 1700 / 1700 Balance 2985.51 / 3223.31 4642.86 / 4294.76 -1373.45 / -1373.45 Lab / Micro Data Result Diagrams: 12/03/21 03:35 12/03/21 03:35 Labs: Laboratory Results - last 24 hr 12/02/21 03:50: Phosphorus 1.9 L, Magnesium 1.8 12/03/21 03:35: Sodium 137, Potassium 4.2, Chloride 105, Carbon Dioxide 27.0, Anion Gap 5, BUN 6 L, Creatinine 0.80, Estim Creat Clear Calc 111.53, Est GFR (MDRD) Af Amer 130, Est GFR (MDRD) Non-Af 108, BUN/Creatinine Ratio 7.5 L, Glucose 112 H, Calcium 8.6, Magnesium 1.7, Total Bilirubin 0.60, AST 113 H, ALT 91 H, Alkaline Phosphatase 92, Total Protein 6.6, Albumin 3.2, Globulin 3.4, Albumin/Globulin Ratio 0.9 12/03/21 03:35: WBC 4.8, RBC 4.33 L, Hgb 14.6, Hct 41.3, MCV 95.4 H, MCH 33.7 H, MCHC 35.4, RDW Std Deviation 50.6 H, RDW Coeff of Guicho 14.6, Plt Count 70 L, MPV 10.4, Immature Gran % (Auto) 0.800, Neut % (Auto) 65.4, Lymph % (Auto) 23.6, [place] % (Auto) 7.9, Eos % (Auto) 1.9, Baso % (Auto) 0.4, Absolute Neuts (auto) 3.2, Absolute Lymphs (auto) 1.14, Nucleated RBC % 0 12/03/21 03:35: Phosphorus 3.6 Micro: Microbiology 12/01/21 13:10 Urine, Clean Catch Urine Culture - Preliminary Culture exhibits no growth. Physical Exam Const alert and no apparent distress General Appearance: cooperative Nutritional Appearance: obese HEENT normocephalic and head/scalp atraumatic Eyes PERRL and EOMs intact bilaterally Neck supple General: trachea midline Chest inspection of chest normal Chest: symmetrical chest wall rise; Negative for crepitus Resp Auscultation: diminished lung sounds bilateral lower; Negative for rales, rhonchi or wheezes Cardio regular rate and regular rhythm GI soft to palpation and non-tender Inspection: central obesity Palpation: Negative for guarding or rigid Percussion: fluid wave Extremity no clubbing, cyanosis or edema Skin no rashes or lesions noted Neuro CN's II-XII intact bilaterally and no focal motor deficits Psych Mood & Affect: flat affect Charges/Coding Visit Charges Inpatient E&M: 43593 Subs Hosp L3
--- NOTE | 2021-12-03 07:51 | PN.HOSP_ITS ---
Subjective Subjective Follow-up on acute alcohol withdrawal: Patient was seen and examined. He remains in ICU on Precedex drip. Precedex drip being weaned off. No acute events overnight. He complains of feeling bloated. He has had multiple bowel movement. His most recent CIWA score is 2. Any dizziness or palpitations or tremors or auditory or visual hallucinations Objective Data Objective Data Vital Signs: Vital Signs Temp Pulse Resp BP Pulse Ox 98.2 F 69 24 H 134/91 H 96 12/03/21 04:00 12/03/21 07:00 12/03/21 07:00 12/03/21 07:00 12/03/21 07:00 Oxygen Flow Rate (L/min) 2 Oxygen Delivery Method Room Air Weight: 106.8 kg Body Mass Index (BMI) 32.5 Intake & Output: Intake and Output for Last 24 Hours 12/01/21 12/02/21 12/03/21 23:59 23:59 23:59 Intake Total 3385.51 / 4198.31 7617.86 / 7769.76 339.95 / 339.95 Output Total 400 / 975 2975 / 3475 1700 / 1700 Balance 2985.51 / 3223.31 4642.86 / 4294.76 -1360.05 / -1360.05 Lab / Micro Data Result Diagrams: 12/03/21 03:35 12/03/21 03:35 Labs: Laboratory Results - last 24 hr 12/03/21 03:35: Sodium 137, Potassium 4.2, Chloride 105, Carbon Dioxide 27.0, Anion Gap 5, BUN 6 L, Creatinine 0.80, Estim Creat Clear Calc 111.53, Est GFR (MDRD) Af Amer 130, Est GFR (MDRD) Non-Af 108, BUN/Creatinine Ratio 7.5 L, Glucose 112 H, Calcium 8.6, Magnesium 1.7, Total Bilirubin 0.60, AST 113 H, ALT 91 H, Alkaline Phosphatase 92, Total Protein 6.6, Albumin 3.2, Globulin 3.4, Albumin/Globulin Ratio 0.9 12/03/21 03:35: WBC 4.8, RBC 4.33 L, Hgb 14.6, Hct 41.3, MCV 95.4 H, MCH 33.7 H, MCHC 35.4, RDW Std Deviation 50.6 H, RDW Coeff of Guicho 14.6, Plt Count 70 L, MPV 10.4, Immature Gran % (Auto) 0.800, Neut % (Auto) 65.4, Lymph % (Auto) 23.6, [place] % (Auto) 7.9, Eos % (Auto) 1.9, Baso % (Auto) 0.4, Absolute Neuts (auto) 3.2, Absolute Lymphs (auto) 1.14, Nucleated RBC % 0 12/03/21 03:35: Phosphorus 3.6 Micro: Microbiology 12/01/21 13:10 Urine, Clean Catch Urine Culture - Preliminary Culture exhibits no growth. Physical Exam Narrative Physical exam: General: Alert, Oriented x3, Cooperative, No apparent distress, Well developed HEENT: Atraumatic Oral: Moist Mucosa Neck: Supple Lungs: Clear to auscultation Cardiovascular: HS I+II, regular, no murmurs Abdomen: Distended abdomen, bowel Sounds Present, Soft, Non Tender Extremities: No edema Assessment & Plan Assessment/Plan (1) Alcohol withdrawal delirium, acute, hyperactive: PLAN: 1. Acute severe acute alcohol withdrawal syndrome/DTs, appears to be improving History of chronic alcohol abuse Continues to be on Precedex drip; being weaned off Started on phenobarb taper Continue with alcohol withdrawal protocol 2. Hypomagnesemia, magnesium is 1.7, replaced, recheck in a.m. 3. Hyponatremia/high anion gap metabolic acidosis, resolved 4. Elevated LFTs, history of fatty liver, liver ultrasound pending 5. Nicotine dependence, on replacement 6. DVT PPx-early ambulation recommended Charges/Coding Visit Charges Inpatient E&M: 37312 Subs Hosp L2
[2021-12-03] MEDS: Folic Acid 1 MG Tablet PO (10:05)
[2021-12-03] MEDS: Thiamine Hydrochloride 100 MG Tablet PO (10:05)
[2021-12-03] MEDS: Gabapentin 300 MG Capsule PO ×3 (10:05→16:37)
[2021-12-03] MEDS: Potassium Chloride Oral Tablet 20 MEQ 40 MEQ PO (10:06)
[2021-12-03] MEDS: 0.9% Saline Lock 10 ML Syringe IV (19:53)
[2021-12-03] MEDS: LORazepam 2 MG/ML Syringe IV (19:53)
[2021-12-04] MEDS: traZODone 100 MG Tablet 300 MG PO ×2 (00:18→23:59)
[2021-12-04 02:34] VITALS: BP 160/102; PULSE 113; RESP 16; TEMP 36.6; O2SAT 98
[2021-12-04] MEDS: Phenobarbital 32.4 MG Tablet 64.8 MG PO ×6 (02:37→22:31)
[2021-12-04] MEDS: hydrOXYzine PAM 25 MG Capsule PO ×2 (02:37→22:34)
[2021-12-04 06:02] LABS: Absolute Lymphocyte Count 1.63 X10^3/uL (0.83-4.51); Absolute Neutrophil Count 3.2 X10^3/uL (2.0-7.7); Basophil# 0.04 X10^3/uL; Basophil% 0.7 % (0-1); Eosinophil# 0.08 X10^3/uL; Eosinophils% 1.4 % (0-5); Hematocrit 41.5 % (40-54); Hemoglobin 14.7 g/dL (13.0-16.5); Lymphocyte # 1.63 X10^3/ul (0.83-4.51); Lymphocyte % 29.2 % (19-41); Mean Corp Hgb Conc 35.4 g/dL (32-36); Mean Corpuscular Hgb 33.9 pg (27.0-32.0); Mean Corpuscular Volume 95.8 fL (80-94); Mean Platelet Vol. 10.4 fl (6.2-12.0); Monocyte# 0.54 X10^3/uL; Monocyte% 9.7 % (0-10); NRBC Flagged by Analyzer 0 % (0-5); Neutrophil # 3.24 X10^3/uL (2.7-7.7); Neutrophil % 57.9 % (47-70); POSITIVE COUNT YES; Platelet Count 87 K/mm3 (150-450); RBC Distribution Width CV 14.2 % (11.6-14.6); RBC Distribution Width SD 50.2 fl (35.1-43.9); Red Blood Count 4.33 M/mm3 (4.6-6.2); White Blood Count 5.6 K/mm3 (4.4-11.0)
[2021-12-04 06:16] VITALS: BP 129/90; PULSE 99; RESP 16; TEMP 37.2; O2SAT 95
[2021-12-04 06:35] LABS: ALB/GLOB Ratio 0.9 RATIO (0.9-2.4); AST(SGOT) 136 U/L (15-37); Alanine Aminotransfer ALT/SGPT 113 U/L (16-61); Albumin, Serum 3.1 g/dL (3.2-5.0); Alkaline Phosphatase 97 U/L (45-117); Anion Gap 5 (5-15); BUN 16 mg/dL (7-18); BUN/Creat Ratio 19.8 RATIO (10-20); Calcium,Total 8.9 mg/dL (8.5-10.1); Chloride 104 mmol/L (98-107); Creatinine, Serum 0.81 mg/dL (0.70-1.30); EST Glomerular Filtration Rate 106 mL/min (>60); Est Glom Filt Rate - Afr Amer 128 mL/min (>60); Estimated Creatinine Clearance 110.15 ml/min; Globulin 3.6 g/dL (2.2-4.2); Glucose 100 mg/dL (74-106); Potassium 3.7 mmol/L (3.5-5.1); Protein, Total 6.7 g/dL (6.4-8.2); Sodium Level 136 mmol/L (136-145)
[2021-12-04 07:20] VITALS: O2SAT 92
--- NOTE | 2021-12-04 08:23 | PCM.PN.INT ---
Assessment & Plan Assessment/Plan (1) Alcohol withdrawal: PLAN: RECOMMENDATIONS: 1. Continue phenobarbital for symptom control of delirium tremens. 2. Aggressive electrolyte repletion as needed. 3. Likely okay to discontinue thiamine and folate supplementation 4. Continue as needed Ativan for breakthrough symptoms. 5. Hemodynamically stable on room air. Will sign off from a critical care perspective IMPRESSIONS: 1. Acute alcohol withdrawal The patient's last alcohol ingestion was approximately 2 to 3 days prior to admission. Patient has responded well to phenobarbital. Okay to discontinue thiamine and folate from my perspective. Continue aggressive electrolyte repletion, as needed. Patient symptoms well controlled on phenobarb. Patient remains hemodynamically stable on room air. Will sign off from a critical care perspective 2. Anemia/thrombocytopenia The patient has chronic anemia and thrombocytopenia. His interval worsening in his counts is secondary to dilution in the setting of volume resuscitation due to intravascular volume depletion. There are no overt signs of blood loss. No indication for transfusion at this time. Continue to monitor clinically. 3. Chronic tobacco dependency/obesity Complicates care, management, recovery and prognosis. Okay to use nicotine replacement therapy. Subjective Subjective Patient did okay overnight. Patient did respond well to phenobarbital and was able to be taken off of Precedex drip. Patient subsequently transported to the floor and did well overnight. Patient is reporting vague abdominal pain this morning, but feels it is somewhat improved compared to yesterday. Objective Data Objective Data Vital Signs: Vital Signs Temp Pulse Resp BP Pulse Ox 37.2 C 99 16 129/90 H 95 12/04/21 06:16 12/04/21 06:16 12/04/21 06:16 12/04/21 06:16 12/04/21 06:16 Oxygen Flow Rate (L/min) 2 Oxygen Delivery Method Room Air Weight: 105 kg Body Mass Index (BMI) 32.5 Intake & Output: Intake and Output for Last 24 Hours 12/02/21 12/03/21 12/04/21 23:59 23:59 23:59 Intake Total 7617.86 / 7769.76 3401.52 / 3401.52 200 / 200 Output Total 2975 / 3475 2600 / 2600 Balance 4642.86 / 4294.76 801.52 / 801.52 200 / 200 Lab / Micro Data Result Diagrams: 12/04/21 05:47 12/04/21 05:47 Labs: Laboratory Results - last 24 hr 12/04/21 05:47: Sodium 136, Potassium 3.7, Chloride 104, Carbon Dioxide 27.0, Anion Gap 5, BUN 16, Creatinine 0.81, Estim Creat Clear Calc 110.15, Est GFR (MDRD) Af Amer 128, Est GFR (MDRD) Non-Af 106, BUN/Creatinine Ratio 19.8, Glucose 100, Calcium 8.9, Total Bilirubin 0.50, AST 136 H, ALT 113 H, Alkaline Phosphatase 97, Total Protein 6.7, Albumin 3.1 L, Globulin 3.6, Albumin/Globulin Ratio 0.9 12/04/21 05:47: WBC 5.6, RBC 4.33 L, Hgb 14.7, Hct 41.5, MCV 95.8 H, MCH 33.9 H, MCHC 35.4, RDW Std Deviation 50.2 H, RDW Coeff of Guicho 14.2, Plt Count 87 L, MPV 10.4, Immature Gran % (Auto) 1.100 H, Neut % (Auto) 57.9, Lymph % (Auto) 29.2, [place] % (Auto) 9.7, Eos % (Auto) 1.4, Baso % (Auto) 0.7, Absolute Neuts (auto) 3.2, Absolute Lymphs (auto) 1.63, Nucleated RBC % 0 Micro: Microbiology 12/01/21 13:10 Urine, Clean Catch Urine Culture - Preliminary Culture exhibits no growth. Radiography Diagnostic Testing: Radiology Impression Abdomen Ultrasound 12/03/21 05:55 IMPRESSION: Mild hepatomegaly and fatty infiltration of the liver. Electronically Signed: Perry Mckeon MD at 10:00 EDT , Physical Exam Const alert and no apparent distress General Appearance: cooperative Nutritional Appearance: obese HEENT normocephalic and head/scalp atraumatic Eyes PERRL and EOMs intact bilaterally Neck supple General: trachea midline Chest inspection of chest normal Chest: symmetrical chest wall rise; Negative for crepitus Resp Auscultation: diminished lung sounds bilateral lower; Negative for rales, rhonchi or wheezes Cardio regular rate and regular rhythm GI soft to palpation and non-tender Inspection: central obesity Palpation: Negative for guarding or rigid Extremity no clubbing, cyanosis or edema Skin no rashes or lesions noted Neuro CN's II-XII intact bilaterally and no focal motor deficits Psych Mood & Affect: flat affect Charges/Coding Visit Charges Inpatient E&M: 78780 Subs Hosp L2
[2021-12-04] MEDS: Folic Acid 1 MG Tablet PO (09:35)
[2021-12-04] MEDS: Thiamine Hydrochloride 100 MG Tablet PO (09:35)
[2021-12-04] MEDS: Potassium Chloride Oral Tablet 20 MEQ 40 MEQ PO (09:35)
[2021-12-04] MEDS: Gabapentin 300 MG Capsule PO ×3 (09:35→17:12)
[2021-12-04 09:40] VITALS: BP 128/84; PULSE 94; RESP 16; TEMP 36.9; O2SAT 96
--- NOTE | 2021-12-04 10:30 | CASEMGMT ---
Social Work Note GONZALEZ Hernandez, Addiction Therapist, that pt is self-pay. Lynn Orellana FACILITIES CLERK, AUTOMOBILE GLASS TECHNICIAN
--- NOTE | 2021-12-04 10:44 | ADDICTION ---
This telegraphic typewriter operator chief met with PT to conduct ASAM, MSE, AUDIT assessments and to plan for d/c. PT A+Ox4 and participated actively. All assessments completed and placed in PT's chart. This worker filled out a self-pay funding request and faxed to the [facility]. PT plans to meet with individual counselor for an assessment at [facility] for follow-up counseling services. PT did not indicate a need for transportation post d/c from [facility].
--- NOTE | 2021-12-04 13:51 | PCM.PN.HOSP ---
Subjective Subjective Follow-up on acute alcohol withdrawal: Patient was seen and examined. He denied any new complaint. His CIWA score today was 4. Off Precedex, transferred out of ICU yesterday Objective Data Objective Data Vital Signs: Vital Signs Temp Pulse Resp BP Pulse Ox 98.5 F 94 16 128/84 H 96 12/04/21 09:40 12/04/21 09:40 12/04/21 09:40 12/04/21 09:40 12/04/21 09:40 Oxygen Flow Rate (L/min) 2 Oxygen Delivery Method Room Air Weight: 105 kg Body Mass Index (BMI) 32.5 Intake & Output: Intake and Output for Last 24 Hours 12/02/21 12/03/21 12/04/21 23:59 23:59 23:59 Intake Total 7617.86 / 7769.76 3401.52 / 3401.52 200 / 200 Output Total 2975 / 3475 2600 / 2600 Balance 4642.86 / 4294.76 801.52 / 801.52 200 / 200 Lab / Micro Data Result Diagrams: 12/04/21 05:47 12/04/21 05:47 Labs: Laboratory Results - last 24 hr 12/04/21 05:47: Sodium 136, Potassium 3.7, Chloride 104, Carbon Dioxide 27.0, Anion Gap 5, BUN 16, Creatinine 0.81, Estim Creat Clear Calc 110.15, Est GFR (MDRD) Af Amer 128, Est GFR (MDRD) Non-Af 106, BUN/Creatinine Ratio 19.8, Glucose 100, Calcium 8.9, Total Bilirubin 0.50, AST 136 H, ALT 113 H, Alkaline Phosphatase 97, Total Protein 6.7, Albumin 3.1 L, Globulin 3.6, Albumin/Globulin Ratio 0.9 12/04/21 05:47: WBC 5.6, RBC 4.33 L, Hgb 14.7, Hct 41.5, MCV 95.8 H, MCH 33.9 H, MCHC 35.4, RDW Std Deviation 50.2 H, RDW Coeff of [place] 14.2, Plt Count 87 L, MPV 10.4, Immature Gran % (Auto) 1.100 H, Neut % (Auto) 57.9, Lymph % (Auto) 29.2, [place] % (Auto) 9.7, Eos % (Auto) 1.4, Baso % (Auto) 0.7, Absolute Neuts (auto) 3.2, Absolute Lymphs (auto) 1.63, Nucleated RBC % 0 Micro: Microbiology 12/01/21 13:10 Urine, Clean Catch Urine Culture - Final Culture exhibits no growth. Physical Exam Narrative Physical exam: General: Alert, Oriented x3, Cooperative, No apparent distress, Well developed HEENT: Atraumatic Oral: Moist Mucosa Neck: Supple Lungs: Clear to auscultation Cardiovascular: HS I+II, regular, no murmurs Abdomen: Distended abdomen, bowel Sounds Present, Soft, Non Tender Extremities: No edema Assessment & Plan Assessment/Plan (1) Alcohol withdrawal delirium, acute, hyperactive: PLAN: 1. Acute severe acute alcohol withdrawal syndrome/DTs, improved History of chronic alcohol abuse. Continue on phenobarb taper Continue with alcohol withdrawal protocol Addiction social work consulted 2. Hypomagnesemia, replaced 3. Hyponatremia/high anion gap metabolic acidosis, resolved 4. Elevated LFTs, history of fatty liver, liver ultrasound pending 5. Nicotine dependence, on replacement 6. DVT PPx-early ambulation recommended Charges/Coding Visit Charges Inpatient E&M: 70194 Subs Hosp L2
[2021-12-04 17:15] VITALS: BP 149/96; PULSE 118; RESP 18; TEMP 36.3; O2SAT 98
[2021-12-04 22:28] VITALS: BP 169/104; PULSE 105; RESP 16; TEMP 36.8; O2SAT 97
[2021-12-04] MEDS: Ibuprofen 400 MG Tablet PO (23:59)
[2021-12-05 02:37] VITALS: BP 136/73; PULSE 90; RESP 16; TEMP 36.6; O2SAT 95
[2021-12-05] MEDS: Phenobarbital 32.4 MG Tablet 64.8 MG PO ×3 (02:40→10:08)
[2021-12-05 06:01] LABS: Absolute Lymphocyte Count 1.89 X10^3/uL (0.83-4.51); Absolute Neutrophil Count 3.6 X10^3/uL (2.0-7.7); Basophil# 0.05 X10^3/uL; Basophil% 0.8 % (0-1); Eosinophil# 0.11 X10^3/uL; Eosinophils% 1.7 % (0-5); Hematocrit 40.8 % (40-54); Lymphocyte # 1.89 X10^3/ul (0.83-4.51); Mean Corp Hgb Conc 34.3 g/dL (32-36); Mean Corpuscular Volume 96.2 fL (80-94); Monocyte# 0.78 X10^3/uL; NRBC Flagged by Analyzer 0 % (0-5); Neutrophil # 3.58 X10^3/uL (2.7-7.7); Platelet Count 112 K/mm3 (150-450); RBC Distribution Width CV 14.5 % (11.6-14.6); Red Blood Count 4.24 M/mm3 (4.6-6.2); White Blood Count 6.5 K/mm3 (4.4-11.0)
[2021-12-05 06:18] VITALS: BP 115/72; PULSE 90; RESP 16; TEMP 36.6; O2SAT 96
[2021-12-05 06:23] LABS: ALB/GLOB Ratio 0.9 RATIO (0.9-2.4); AST(SGOT) 122 U/L (15-37); Alanine Aminotransfer ALT/SGPT 128 U/L (16-61); Albumin, Serum 3.2 g/dL (3.2-5.0); Alkaline Phosphatase 95 U/L (45-117); Anion Gap 5 (5-15); BUN 18 mg/dL (7-18); BUN/Creat Ratio 19.4 RATIO (10-20); Calcium,Total 8.3 mg/dL (8.5-10.1); Chloride 100 mmol/L (98-107); Creatinine, Serum 0.93 mg/dL (0.70-1.30); EST Glomerular Filtration Rate 91 mL/min (>60); Est Glom Filt Rate - Afr Amer 110 mL/min (>60); Estimated Creatinine Clearance 95.94 ml/min; Globulin 3.5 g/dL (2.2-4.2); Glucose 96 mg/dL (74-106); Magnesium 2.2 mg/dL (1.6-2.6); Potassium 3.7 mmol/L (3.5-5.1); Protein, Total 6.7 g/dL (6.4-8.2); Sodium Level 134 mmol/L (136-145)
--- NOTE | 2021-12-05 09:55 | DCINST_ITS ---
Discharge Instructions Diet Discharge Diet: Low fat / Low cholesterol and 2000 mg Sodium Diet Activity Discharge Activity: Return to Normal Activity Follow Up Care Test Results: Test results from this visit will be discussed in further detail at your follow-up appointment, if applicable. Discharge Plan Admission Admit Date/Time: 12/01/21 12:20 Primary Reason for Your Visit: Acute alcohol withdrawal Attending Provider: Arlin Felder Primary Care Provider: Dagoberto Mari Consulting Providers: Jc Alvarado ; Onesimo Erickson ; Ankita Patterson ENVIRONMENTAL PERMITTING SPECIALIST Instructions Additional Instructions / Restrictions: You are strongly advised to avoid alcohol or use of any illicit drug. Avoid smoking. Follow-up with your outpatient rehab program as scheduled. Discharge Orders/Prescriptions Prescriptions: Continued gabapentin 300 MG capsule 300 mg PO TIDCM 30 Days Qty: 90 RF: 3 trazodone 150 MG tablet 300 mg PO QHS PRN (Reason: Sleep) 30 Days Qty: 60 RF: 0 fluvoxamine 100 MG tablet 100 mg PO BID 30 Days Qty: 60 RF: 4 Referrals / Follow Up: Dagoberto Mari MD [Primary Care Provider] - Disposition Disposition (needs filled in before D/C Order can be placed): Home, Self Care
[2021-12-05] MEDS: Thiamine Hydrochloride 100 MG Tablet PO (10:08)
[2021-12-05] MEDS: Folic Acid 1 MG Tablet PO (10:08)
[2021-12-05] MEDS: Gabapentin 300 MG Capsule PO ×2 (10:08→12:20)
[2021-12-05 10:10] VITALS: BP 137/92; PULSE 112; RESP 18; TEMP 36.4; O2SAT 100
--- NOTE | 2021-12-05 10:15 | DS.PCM_ITS ---
Providers Date of Admission: 12/01/21 Date of Discharge: 12/05/21 Primary Care Physician: Dr. Dagoberto Mari MD Consultations 12/01/21 13:04 Consult: Collections Agent / Pulmonary Medicine Routine Consulting Provider: Pulmonary Medicine nimesh [place] Reason for Consult: Acute alcohol withdrawal syndrome EMERGENT Consult: No MD Notified: Yes Date Notified: 12/01/21 Time Notified: 13:04 Method of Notification: Text Reason For Visit: ACUTE ALCOHOL WITHDRAWAL SYNDROME Diagnosis Discharge Diagnosis (1) Alcohol withdrawal delirium, acute, hyperactive: Status: Resolved Code(s): F10.231 - Alcohol dependence with withdrawal delirium (2) Hypomagnesemia: Status: Resolved Code(s): E83.42 - Hypomagnesemia (3) ETOH abuse: Status: Chronic Code(s): F10.10 - Alcohol abuse, uncomplicated (4) Transaminitis: Status: Chronic Code(s): R74.0 - Nonspecific elevation of levels of transaminase and lactic acid dehydrogenase [LDH] (5) Hyponatremia: Status: Chronic Code(s): E87.1 - Hypo-osmolality and hyponatremia (6) Delirium tremens: Status: Resolved Code(s): F10.231 - Alcohol dependence with withdrawal delirium Medications at Discharge Home Medications fluvoxamine 100 mg PO BID 30 Days #60 tab 05/11/18 gabapentin 300 mg PO TIDCM 30 Days #90 cap 05/11/18 trazodone 300 mg PO QHS PRN 30 Days #60 tab 05/11/18 Hospital Course Operations None Procedures None Summary of Care Provided Minutes Spent on Discharge: 35 Hospital Course: 51-year-old male with past medical history of chronic alcohol abuse, who comes in with alcohol withdrawal symptoms of vomiting, shaking, fee ling weak ongoing for 6 days. Patient had also been hallucinating and was talking to his dad who was . In the ED, patient was found to be hypertensive, tachycardic. He was found to be going through delirium tremens. He was admitted to ICU and started on Precedex drip. Patient continued to improve, will start on phenobarb overlap. Precedex drip was weaned off. Patient was transferred to [facility] floor. He was seen by addiction medicine child protective services social worker. Outpatient follow-up recommended. On the day of discharge, patient was seen and examined. No acute events overnight. Physical Exam Narrative Physical exam: General: Alert, Oriented x3, Cooperative, No apparent distress, Well developed HEENT: Atraumatic Oral: Moist Mucosa Neck: Supple Lungs: Clear to auscultation Cardiovascular: HS I+II, regular, no murmurs Abdomen: Distended abdomen, bowel Sounds Present, Soft, Non Tender Extremities: No edema Weight / BMI Weight Weight: 106.3 kg Body Mass Index (BMI) 32.5 ABG / Lab / Microbiology Data Result Diagrams: 12/05/21 05:05 12/05/21 05:05 Laboratory: Laboratory Results - last 24 hr 12/05/21 05:05: WBC 6.5, RBC 4.24 L, Hgb 14.0, Hct 40.8, MCV 96.2 H, MCH 33.0 H, MCHC 34.3, RDW Std Deviation 51.0 H, RDW Coeff of [place] 14.5, Plt Count 112 L, MPV 10.0, Immature Gran % (Auto) 1.500 H, Neut % (Auto) 55.0, Lymph % (Auto) 29.0, [place] % (Auto) 12.0 H, Eos % (Auto) 1.7, Baso % (Auto) 0.8, Absolute Neuts (auto) 3.6, Absolute Lymphs (auto) 1.89, Nucleated RBC % 0 12/05/21 05:05: Sodium 134 L, Potassium 3.7, Chloride 100, Carbon Dioxide 29.0, Anion Gap 5, BUN 18, Creatinine 0.93, Estim Creat Clear Calc 95.94, Est GFR (MDRD) Af Amer 110, Est GFR (MDRD) Non-Af 91, BUN/Creatinine Ratio 19.4, Glucose 96, Calcium 8.3 L, Magnesium 2.2, Total Bilirubin 0.50, AST 122 H, ALT 128 H, Alkaline Phosphatase 95, Total Protein 6.7, Albumin 3.2, Globulin 3.5, Albumin/Globulin Ratio 0.9 Microbiology: Microbiology 12/01/21 13:10 Urine, Clean Catch Urine Culture - Final Culture exhibits no growth. D/C Instructions Discharge Diet: Low fat / Low cholesterol and 2000 mg Sodium Diet Meaningful Use Info Meaningful Use Diagnoses (Choose all that apply): None applicable Discharge Plan Admission Admit Date/Time: 12/01/21 12:20 Primary Reason for Your Visit: Acute alcohol withdrawal Attending Provider: Arlin Felder Primary Care Provider: Dagoberto Mari Consulting Providers: Jc Alvarado ; Onesimo Erickson ; Ankita Patterson FIELD UNDERWRITER Instructions Additional Instructions / Restrictions: You are strongly advised to avoid alcohol or use of any illicit drug. Avoid smoking. Follow-up with your outpatient rehab program as scheduled. Discharge Orders/Prescriptions Prescriptions: Continued gabapentin 300 MG capsule 300 mg PO TIDCM 30 Days Qty: 90 RF: 3 trazodone 150 MG tablet 300 mg PO QHS PRN (Reason: Sleep) 30 Days Qty: 60 RF: 0 fluvoxamine 100 MG tablet 100 mg PO BID 30 Days Qty: 60 RF: 4 Referrals / Follow Up: Dagoberto Mari MD [Primary Care Provider] - Disposition Disposition (needs filled in before D/C Order can be placed): Home, Self Care Charges/Coding Visit Charges Inpatient E&M: 18969 Disch Hosp
--- NOTE | 2021-12-05 10:49 | CASEMGMT ---
Addendum entered by Haydee Mejía 12/05/21 11:09: Social Work SW called back in to patient's room and pt requesting that Medicaid application not be processed due to personal reasons. SW explained that if pt qualifies for Medicaid, it will assist with bill for hospitalization. Pt states he will pay privately for hospital bill and continues to request application be stopped. Request for application to be rescinded faxed to [employer]. AL Escalera Original Note: Social Work SW met with pt and assisted in completing Medicaid application. Application faxed to [employer] and pt made aware that [employer] would be requesting followup documentation, Pt must follow steps laid out by [employer] in time frame requested or [employer] will close pt case. Pt expresses understanding and willingness to complete process. AL Escalera
[2021-12-05 11:28] VITALS: O2SAT 98
== END 2021-12-05 12:32 | disposition home or self-care (01) | DRG 897 ==
LOC: ED 12:22 → ICU 12:32 → MS3 12-03 13:06
PROVIDERS: Admitting Provider Internal Medicine; Emergency Provider Emergency Medicine; PCP Family Medicine; Visit Provider Internal Medicine
DX: F10.231 Alcohol dependence with withdrawal delirium (principal); E87.2 Acidosis; E87.1 Hypo-osmolality and hyponatremia; D69.6 Thrombocytopenia, unspecified; D63.8 Anemia in other chronic diseases classified elsewhere; E86.9 Volume depletion, unspecified; K70.10 Alcoholic hepatitis without ascites; I10 Essential (primary) hypertension; F17.210 Nicotine dependence, cigarettes, uncomplicated; K76.0 Fatty (change of) liver, not elsewhere classified; F41.9 Anxiety disorder, unspecified; E66.9 Obesity, unspecified; F42.9 Obsessive-compulsive disorder, unspecified; R74.01 Elevation of levels of liver transaminase levels; Z79.899 Other long term (current) drug therapy; Y90.4 Blood alcohol level of 80-99 mg/100 ml; Z68.33 Body mass index [BMI] 33.0-33.9, adult
CPT/HCPCS: 36415; 76705; 80053; 80307; 81001; 82009; 82077; 83605; 83690; 83735; 84100; 85025; 85610; 87086; 93005; 97161; 97166; 97530; 99251; 99285; J7030; J7050; A4216; G0463; J2405; J7799

== ENCOUNTER 2022-02-08 02:55 | Emergency (ER) | payer OTHER, SELFPAY ==
[2022-02-08 02:56] VITALS: BP 154/102; PULSE 109; RESP 18; TEMP 36.3; O2SAT 96; BMI 29.7
[2022-02-08 03:04] VITALS: PULSE 100
--- NOTE | 2022-02-08 03:41 | EDS_ITS ---
HPI History of Present Illness Chief Complaint: ETOH Intox Informant: patient and EMS Onset/Context/Timing Onset: Today Narrative Narrative: Patient is an alcoholic who has been drinking vodka heavily tonight, EMS states that called EMS because he had a decreased level of consciousness. Upon EMS arrival, patient was awake and alert, appearing intoxicated, he vomited once. He did not appear to aspirate, the patient denies feeling like he aspirated, nor is he having any trouble breathing and states that he feels fine, no longer feels nauseated. He admits to drinking lots of alcohol and doing no other substances/drugs. [facility] Medical History Anxiety Depression ETOH abuse HTN (hypertension) Jaundice due to hepatitis Methamphetamine abuse Smoker Home Medications fluvoxamine 100 mg tablet 100 mg PO BID 30 days #60 tabs 05/11/18 [Rx Last Taken Unknown] gabapentin 300 mg capsule 300 mg PO TIDCM 30 days #90 caps 05/11/18 [Rx Last Taken Unknown] trazodone 150 mg tablet 300 mg PO QHS PRN Sleep 30 days #60 tabs 05/11/18 [Rx Last Taken Unknown] Allergy/AdvReac Type Severity Reaction Status Date / Time amoxicillin AdvReac Upset Verified 02/08/22 03:02 Stomach Social History Smoking Status: Current some day smoker tobacco type: cigarettes ROS ROS ED Constitutional Constitutional ED: Denies chills or fever(s) Eyes Eyes: Denies change in vision or diplopia ENT ENT ED: Denies rhinorrhea or sore throat Cardiovascular Cardiovascular: Denies chest pain or palpitations Respiratory/Chest Respiratory/Chest: Denies cough or dyspnea Gastrointestinal Gastrointestinal: Reports vomiting; Denies abdominal pain, diarrhea or nausea Genitourinary Genitourinary ED: Denies dysuria or hematuria Musculoskeletal Musculoskeletal: Denies back pain or neck pain Integumentary Denies abscess or rash Neurologic Neurologic: Denies headache(s), paresthesias or weakness Psychiatric Psychiatric: Denies anxiety or suicidal thoughts EXAM Physical Exam Const Vital Signs: 02/08/22 02:56 02/08/22 03:04 Temperature 97.4 F L Temperature Source Temporal Pulse Rate 109 H 100 Respiratory Rate 18 Blood Pressure 154/102 H Blood Pressure Mean 119 Pulse Ox 96 Oxygen Delivery Method Room Air Positive well nourished and well developed Constitutional Narrative: Grossly intoxicated, slurring his speech, keenly alert General Appearance ED: well developed and NAD HEENT Reports moist mucous membranes normocephalic and atraumatic Eyes PERRL and EOMs intact bilaterally General Eye ED: Negative for scleral icterus Neck full ROM and supple Resp normal respiratory effort and clear to auscultation bilaterally Cardio regular rate, regular rhythm and no murmurs Rate: tachycardic GI non-tender and non-distended Auscultation: normoactive bowel sounds Palpation: soft Back/Spine no CVA tenderness General Back: other FROM Extremity normal to inspection General Extremety ED: Negative for edema, pulses abnormal or tenderness General Extremity: Negative for edema or pulses abnormal Neuro oriented x3, CN's II-XII intact bilaterally and no sensory deficits noted Neuro Narrative: Grossly intoxicated. GCS 15. Sensorium / Orientation: awake and alert Speech: speech abnormal Details: Positive for slurred; Negative for expressive aphasia or receptive aphasia Motor Exam: strength 5/5 throughout Skin no rashes or lesions noted and no wounds General Skin Exam: Negative for jaundice MDM MDM MDM Narrative Medical decision making narrative: Patient had a history of hyponatremia and other electrolyte disorders so I ran chemistries, they are unremarkable. He was given a liter of IV fluid and Zofran given the events prior to arrival. Patient kept getting out of bed and coming out of his room into the hallway multiple times, he was redirectable. He urinated. He is intoxicated but stable. His saturations remain 96-97% on room air, his tachycardia improved with IV fluids, and his lungs are clear. No suspicion at this time for aspiration, he will be discharged whenever he is able to secure a sober ride home. Until then he will be observed here. Lab Data Attestation: I reviewed the patient's lab results. Labs: Laboratory Results - last 24 hr 02/08/22 03:55 Sodium 143 Potassium 3.6 Chloride 108 H Carbon Dioxide 25.0 Anion Gap 10 BUN 13 Creatinine 0.90 Estim Creat Clear Calc 99.14 Est GFR (MDRD) Af Amer 114 Est GFR (MDRD) Non-Af 94 BUN/Creatinine Ratio 14.5 Glucose 100 Calcium 8.1 L Discharge Plan Triage Chief Complaint: ETOH Intox ED Provider: Yoni Galvan Dx/Rx/DC Orders Clinical Impression: Alcohol intoxication Instructions: ED Alcohol Intoxication Prescriptions: No Action gabapentin 300 MG capsule 300 mg PO TIDCM 30 Days Qty: 90 3RF trazodone 150 MG tablet 300 mg PO QHS PRN (Reason: Sleep) 30 Days Qty: 60 0RF fluvoxamine 100 MG tablet 100 mg PO BID 30 Days Qty: 60 4RF Primary Care Provider: Dagoberto Mari Referrals: Dagoberto Mari MD [Primary Care Provider] - As Needed Disposition Disposition: Home, Self Care
[2022-02-08] MEDS: 0.9% Normal Saline 1,000 ML 999 ML IV (03:59)
[2022-02-08] MEDS: Ondansetron 4 MG/2 ML Vial IV (03:59)
[2022-02-08 04:29] LABS: Anion Gap 10 (5-15); BUN 13 mg/dL (7-18); BUN/Creat Ratio 14.5 RATIO (10-20); Calcium,Total 8.1 mg/dL (8.5-10.1); Chloride 108 mmol/L (98-107); EST Glomerular Filtration Rate 94 mL/min (>60); Est Glom Filt Rate - Afr Amer 114 mL/min (>60); Estimated Creatinine Clearance 99.14 ml/min; Glucose 100 mg/dL (74-106); Potassium 3.6 mmol/L (3.5-5.1); Sodium Level 143 mmol/L (136-145)
--- NOTE | 2022-02-08 05:39 | ED.RN ---
CALLED [facility] (SO) & LEFT MESSAGE TO SEE IF ABLE TO COME AND [employer] PATIENT
--- NOTE | 2022-02-08 06:58 | ED.RN ---
PT TOOK OUT HIS OWN IV. PATIENT WALKING AROUND THE ROOM WITH BLOOD DRIPPING ALL OVER THE FLOOR AND ALL OVER PATIENT. PT GIVEN WIPES TO CLEAN SELF UP. EVS CALLED TO MOP FLOOR. UNABLE TO GET A HOLD OF PATIENTS SIGNIFICANT OTHER. PT CALLED [facility]. PER DR SPENCER PATIENT IS OK TO GO HOME IN A [facility]. PT AMBULATED SELF OUT TO [facility] WITH STEADY GAIT. PT DID NOT WANT TO WAIT FOR DISCHARGE PAPERWORK.
== END 2022-02-08 07:00 | disposition home or self-care (01) ==
PROVIDERS: Emergency Provider Emergency Medicine; PCP Family Medicine; Visit Provider Emergency Medicine
DX: F10.129 Alcohol abuse with intoxication, unspecified (principal); F17.210 Nicotine dependence, cigarettes, uncomplicated
CPT/HCPCS: 80048; 96361; 96374; 99284; J7030; A4216; J2405

== ENCOUNTER 2022-02-11 05:21 | Inpatient (IN) | payer OTHER, MEDICAID, SELFPAY ==
[2022-02-11] VITALS (12 sets, daily range): BP systolic 120–182; BP diastolic 63–105; PULSE 83–132; RESP 14–22; TEMP 35.9–36.8; O2SAT 92–98; BMI 32.5; BMI 29.2
--- NOTE | 2022-02-11 05:41 | EKG12_ITS ---
Test Reason : DYSRHYTHMIA Blood Pressure : / mmHG Vent. Rate : 126 BPM Atrial Rate : 126 BPM P-R Int : 136 ms QRS Dur : 090 ms QT Int : 324 ms P-R-T Axes : 047 006 037 degrees QTc Int : 469 ms Sinus tachycardia Low voltage QRS (Limb Leads) Poor R wave progression Confirmed by DUONG LAKE, AVRIL ([id number]), editor farm journal ELVI MORA ([id number]) on 02/12/2022 8:59:23 AM Referred By: KAITLYNN Confirmed By:AVRIL WATTERS MD
--- NOTE | 2022-02-11 05:42 | EDS_ITS ---
HPI History of Present Illness Chief Complaint: Substance Abuse Informant: patient and spouse/S.O. Narrative Narrative: Patient is a 51-year-old male with history of alcohol abuse presenting for detox. Patient quit drinking alcohol cold yesterday. He has a history of DTs and was actually hospitalized 12/01 through 12/05 for DTs. He states he is feeling about the same right now. He states his last drink was yesterday. He is drinking at least a liter of 80 proof vodka a day. He states he quit because he just feels that his body is breaking down. Over the past week he has had decreased oral intake, nausea, vomiting, epigastric pain, central chest pain and generalized malaise. He notes he has been bruising more frequently.Patient was seen in our ER 3 days ago where he was intoxicated and fell into a wall.Because of his history of hyponatremia BNP was obtained at that time which was normal at 143. Patient discharged home as he was hemodynamically stable. Patient states he started drinking again about a month ago. PFSH PFSH Medical History Anxiety Depression ETOH abuse HTN (hypertension) Jaundice due to hepatitis Methamphetamine abuse Smoker Home Medications fluvoxamine 100 mg tablet 100 mg PO BID 30 days #60 tabs 05/11/18 [Rx Last Taken Unknown] gabapentin 300 mg capsule 300 mg PO TIDCM 30 days #90 caps 05/11/18 [Rx Last Taken Unknown] trazodone 150 mg tablet 300 mg PO QHS PRN Sleep 30 days #60 tabs 05/11/18 [Rx Last Taken Unknown] Allergy/AdvReac Type Severity Reaction Status Date / Time amoxicillin AdvReac Upset Verified 02/11/22 05:25 Stomach Social History Smoking Status: Current some day smoker tobacco type: cigarettes ROS ROS ED Constitutional Constitutional ED: Denies chills, fever(s) or sweats Eyes Eyes: Denies change in vision ENT ENT ED: Denies ear pain or sore throat Cardiovascular Cardiovascular: Reports chest pain; Denies palpitations Respiratory/Chest Respiratory/Chest: Denies cough Gastrointestinal Gastrointestinal: Reports abdominal pain, nausea and vomiting; Denies diarrhea or melena Musculoskeletal Musculoskeletal: Denies arthralgias or myalgias Integumentary Denies Abrasions Neurologic Neurologic: Denies headache(s) Psychiatric Psychiatric: Denies anxiety Hematologic/Lymphatic Hematologic/Lymphatic: Reports easy bruising EXAM Physical Exam Const Vital Signs: 02/11/22 05:22 02/11/22 05:35 02/11/22 06:32 Temperature 97.5 F L 97.5 F L Temperature Source Temporal Oral Pulse Rate 132 H 129 H 113 H Respiratory Rate 18 18 Blood Pressure 182/99 H 182/99 H Blood Pressure Mean 126 126 Blood Pressure Source Monitor Blood Pressure Position Semi-Fowlers Blood Pressure Location Right Arm Pulse Ox 96 96 Oxygen Delivery Method Room Air Room Air Positive well nourished and well developed General Appearance ED: well developed and NAD HEENT Reports TM's clear and moist mucous membranes atraumatic Tympanic Membrane ED: Yes TM's clear Eyes PERRL and EOMs intact bilaterally Neck supple and no JVD Chest Wall inspection of chest normal and palpation of chest normal Resp normal respiratory effort and clear to auscultation bilaterally Cardio regular rate and no murmurs Rate: tachycardic GI soft to palpation, non-tender, non-distended and no masses Back/Spine no CVA tenderness Extremity Extremity Narrative: Normal gait General Extremety ED: Negative for edema or tenderness General Extremity: Negative for edema Neuro oriented x3 and no sensory deficits noted Neuro Narrative: Mild tremor on exam Motor Exam: strength 5/5 throughout Psych mental status grossly normal Skin Skin Narrative: Scattered ecchymosis of the lower extremities, right arm from recent IV and ecchymosis of the right shoulder associated with his recent fall General Skin Exam: Negative for jaundice MDM MDM MDM Narrative Medical decision making narrative: Evaluate for request of alcohol detox. Patient does have a history of DTs. Upon arrival he is hypertensive, tachycardic and mildly tremulous. He is given IV Ativan, IV Zofran and fluids. As he has been having nausea vomiting and chest pains I did add on lipase, troponin and EKG to the normal addiction m edicine/alcohol withdrawal orders. Patient require admission for alcohol detox suspect he has an early DTs. Patient's vital signs and symptoms improved with IV Ativan. Alcohol level is 5. His bicarb is 15 and anion gap is 20. Suspect patient has a component of alcoholic ketoacidosis. Ketones are 150. Patient will be admitted for further electrolyte management and for alcohol detox. Case is discussed with hospitalist. Lab Data Labs: Laboratory Results - last 24 hr 02/11/22 02/11/22 02/11/22 05:50 05:50 05:50 WBC 7.1 RBC 4.49 L Hgb 15.0 Hct 43.1 MCV 96.0 H MCH 33.4 H MCHC 34.8 RDW Std Deviation 49.7 H RDW Coeff of [place] 14.5 Plt Count 112 L MPV 8.7 Immature Gran % (Auto) 0.600 Neut % (Auto) 81.9 H Lymph % (Auto) 9.0 L [place] % (Auto) 8.2 Eos % (Auto) 0.0 Baso % (Auto) 0.3 Absolute Neuts (auto) 5.8 Absolute Lymphs (auto) 0.64 L Nucleated RBC % 0 PT 13.1 INR 1.0 Sodium 131 L Potassium 4.3 Chloride 96 L Carbon Dioxide 15.0 L Anion Gap 20 H BUN 14 Creatinine 1.01 Estim Creat Clear Calc 85.56 Est GFR (MDRD) Af Amer 99 Est GFR (MDRD) Non-Af 82 BUN/Creatinine Ratio 13.9 Glucose 142 H Calcium 8.6 Total Bilirubin 0.90 AST 157 H ALT 118 H Alkaline Phosphatase 91 Troponin I High Sens 6 Total Protein 7.6 Albumin 4.2 Globulin 3.4 Albumin/Globulin Ratio 1.2 Lipase 190 Urine Color Urine Clarity Urine pH Ur Specific [place] Urine Protein Urine Glucose (UA) Urine Ketones Urine Occult Blood Urine Nitrite Urine Bilirubin Urine Urobilinogen Ur Leukocyte Esterase Urine RBC Urine WBC Ur Squamous Epith Cells Urine Bacteria Hyaline Casts Urine Mucus Urine Opiates Screen Urine Methadone Screen Ur Barbiturates Screen Ur Phencyclidine Scrn Ur Amphetamines Screen MDMA (Ecstasy) Screen U Benzodiazepines Scrn Urine Cocaine Screen U Cannabinoids Screen Ur Drug Screen Comment Ethyl Alcohol 02/11/22 02/11/22 02/11/22 05:50 06:30 06:30 WBC RBC Hgb Hct MCV MCH MCHC RDW Std Deviation RDW Coeff of [place] Plt Count MPV Immature Gran % (Auto) Neut % (Auto) Lymph % (Auto) [place] % (Auto) Eos % (Auto) Baso % (Auto) Absolute Neuts (auto) Absolute Lymphs (auto) Nucleated RBC % PT INR Sodium Potassium Chloride Carbon Dioxide Anion Gap BUN Creatinine Estim Creat Clear Calc Est GFR (MDRD) Af Amer Est GFR (MDRD) Non-Af BUN/Creatinine Ratio Glucose Calcium Total Bilirubin AST ALT Alkaline Phosphatase Troponin I High Sens Total Protein Albumin Globulin Albumin/Globulin Ratio Lipase Urine Color Yellow Urine Clarity Clear Urine pH 5.0 Ur Specific [place] 1.030 Urine Protein 30 H Urine Glucose (UA) Normal Urine Ketones 150 A* Urine Occult Blood Negative Urine Nitrite Negative Urine Bilirubin Negative Urine Urobilinogen Normal Ur Leukocyte Esterase Negative Urine RBC 0 SEEN Urine WBC 0 SEEN Ur Squamous Epith Cells 0-5 SEEN Urine Bacteria RARE Hyaline Casts 0-5 SEEN Urine Mucus RARE Urine Opiates Screen NEGATIVE Urine Methadone Screen NEGATIVE Ur Barbiturates Screen NEGATIVE Ur Phencyclidine Scrn NEGATIVE Ur Amphetamines Screen NEGATIVE MDMA (Ecstasy) Screen POSITIVE H U Benzodiazepines Scrn NEGATIVE Urine Cocaine Screen NEGATIVE U Cannabinoids Screen NEGATIVE Ur Drug Screen Comment Ethyl Alcohol 5.0 Rhythm Strip Rhythm Strip: Sinus Tach Rate: 126 Ectopy: None EKG Initial EKG: Attestation: I personally reviewed and interpreted this EKG as follows: Interpretation: Sinus Tachycardia Comments: Sinus tachycardia rate of 126 Normal axis Normal intervals Normal ST segments Discharge Plan Dx/Rx/DC Orders Clinical Impression: Alcoholic ketoacidosis, Alcohol withdrawal Disposition Disposition: Acute Care [facility]
[2022-02-11] MEDS: LORazepam 2 MG/ML Syringe 1 MG IV ×2 (05:58→08:04)
[2022-02-11] MEDS: Ondansetron 4 MG/2 ML Vial IV (05:58)
[2022-02-11 06:00] LABS: Absolute Lymphocyte Count 0.64 X10^3/uL (0.83-4.51); Absolute Neutrophil Count 5.8 X10^3/uL (2.0-7.7); Basophil# 0.02 X10^3/uL; Basophil% 0.3 % (0-1); Hematocrit 43.1 % (40-54); Lymphocyte # 0.64 X10^3/ul (0.83-4.51); Mean Corp Hgb Conc 34.8 g/dL (32-36); Mean Corpuscular Hgb 33.4 pg (27.0-32.0); Mean Platelet Vol. 8.7 fl (6.2-12.0); Monocyte# 0.58 X10^3/uL; Monocyte% 8.2 % (0-10); NRBC Flagged by Analyzer 0 % (0-5); Neutrophil # 5.81 X10^3/uL (2.7-7.7); Neutrophil % 81.9 % (47-70); Platelet Count 112 K/mm3 (150-450); RBC Distribution Width CV 14.5 % (11.6-14.6); RBC Distribution Width SD 49.7 fl (35.1-43.9); Red Blood Count 4.49 M/mm3 (4.6-6.2); White Blood Count 7.1 K/mm3 (4.4-11.0)
[2022-02-11] MEDS: 0.9% Normal Saline 1,000 ML 150 ML IV (06:02)
[2022-02-11 06:08] LABS: Prothrombin Time (Protime)PT. 13.1 SECONDS (11.7-14.9)
[2022-02-11 06:19] LABS: ALB/GLOB Ratio 1.2 RATIO (0.9-2.4); AST(SGOT) 157 U/L (15-37); Alanine Aminotransfer ALT/SGPT 118 U/L (16-61); Albumin, Serum 4.2 g/dL (3.2-5.0); Alkaline Phosphatase 91 U/L (45-117); Anion Gap 20 (5-15); BUN 14 mg/dL (7-18); BUN/Creat Ratio 13.9 RATIO (10-20); Calcium,Total 8.6 mg/dL (8.5-10.1); Chloride 96 mmol/L (98-107); Creatinine, Serum 1.01 mg/dL (0.70-1.30); EST Glomerular Filtration Rate 82 mL/min (>60); Est Glom Filt Rate - Afr Amer 99 mL/min (>60); Estimated Creatinine Clearance 85.56 ml/min; Globulin 3.4 g/dL (2.2-4.2); Glucose 142 mg/dL (74-106); Lipase 190 U/L (73-393); Potassium 4.3 mmol/L (3.5-5.1); Protein, Total 7.6 g/dL (6.4-8.2); Sodium Level 131 mmol/L (136-145); Troponin-I HS 6 pg/mL (3.0-78.0)
[2022-02-11 06:43] LABS: Red Blood Cells-Urine 0 SEEN /hpf (0-5); White Blood Cells 0 SEEN /hpf (0-5)
[2022-02-11 06:48] LABS: Color, Urine Yellow (Yellow); Glucose, Dipstick Normal (Normal); Leukocyte Esterase-Dipstick Negative /ul (Negative); Nitrite-Dipstick Negative (Negative); Occult Blood-Urine Negative /ul (Negative); Protein-Dipstick 30 mg/dl (Negative); Urine Bilirubin Dipstick Negative (Negative); Urine Clarity Clear (Clear); Urine Urobilinogen Normal (Normal)
[2022-02-11 06:54] LABS: Ketone-Dipstick 150 mg/dl (Negative)
[2022-02-11 06:55] LABS: Bacteria RARE /hpf (None Seen); Hyaline Cast 0-5 SEEN /lpf (0-5); Mucous, Urine RARE /hpf (<or=2+); Squamous Epithelial Cells - UA 0-5 SEEN /hpf (0-5)
[2022-02-11 07:07] LABS: Amphetamine Urine VISTA NEGATIVE (<1000 ng/mL); Barbiturate Urine VISTA NEGATIVE (< 200 ng/mL); Benzodiazepine Urine VISTA NEGATIVE (< 200 ng/mL); Cocaine Urine VISTA NEGATIVE (< 300 ng/mL); Ecstacy Urine VISTA POSITIVE (< 500 ng/mL); Methadone Urine VISTA NEGATIVE (< 300 ng/mL); PCP Urine VISTA NEGATIVE (< 25 ng/mL); THC Urine VISTA NEGATIVE (< 50 ng/mL); Vista UDS pH Range 5
--- NOTE | 2022-02-11 07:26 | PCM.HP.STD ---
HPI - General General Date of Admission: 02/11/22 Date of Service: 02/11/22 Chief Complaint: Tremors, nausea, vomiting, hallucinations- 2 days HPI Narrative ALTHEA TIERNEY, is a 51 M who presents with above ongoing for almost 2 days. Patient has a history of chronic alcohol abuse with history of DTs in the last admission in November 2021 requiring ICU stay and Precedex. Patient stated that he was doing well until a month ago when he drank beer. He has since been drinking about a liter of vodka a day. Patient's stated that he stopped drinking alcohol about a day and half ago. He admits to nausea and vomiting and epigastric discomfort as well as central chest discomfort and generalized pain. He has been having unsteady gait and has been falling and bruising more often. His admitting blood pressure was 182/99, heart rate was 132, respiratory rate was 18, temperature 97.5 F, SPO2 is 96%. His admitting blood work showed a BC count of 7.1, Hb 5.0, platelet count 112, INR is 1.0, sodium 131, potassium 4.3, chloride 96, bicarbonate 15, anion gap 20, BUN 14, creatinine 1.01, glucose 142, AST 157, ALT 118, ALP 91. UA had ketones. Urine tox was unremarkable except for being positive for ecstasy. His serum alcohol level was 5.0. [facility] Medical History Anxiety Depression ETOH abuse History of foot fracture HTN (hypertension) Jaundice due to hepatitis Methamphetamine abuse Smoker Home Medications fluvoxamine 100 mg tablet 100 mg PO BID 30 days #60 tabs 05/11/18 [Rx Last Taken Unknown] gabapentin 300 mg capsule 300 mg PO TIDCM 30 days #90 caps 05/11/18 [Rx Last Taken Unknown] trazodone 150 mg tablet 300 mg PO QHS PRN Sleep 30 days #60 tabs 05/11/18 [Rx Last Taken Unknown] Allergy/AdvReac Type Severity Reaction Status Date / Time amoxicillin AdvReac Upset Verified 02/11/22 05:25 Stomach Family History (Updated 02/11/22 @ 12:[address] Arlin Felder MD) Mother No problems noted. Father CAD (coronary artery disease) Heart disease Myocardial infarction Surgical History (Updated 02/11/22 @ 12:[address] Arlin Felder MD) S/P herniorrhaphy Social History (Updated 02/11/22 @ 12:[address] Arlin Felder MD) household members: significant other housing: apartment Smoking Status: Current every day smoker alcohol intake: current substance use type: does not use ROS ROS Narrative Constitutional: Denies: Anorexia, Chills, Fever, Night Sweats, Weight Change Eyes: Denies: Blurred vision, Cataracts, Conjunctivae Inflammation, Pain, Redness, Vision Change HEENT: Denies: Difficulty Hearing, Difficulty Swallowing, Head Aches, Hearing Changes, Sinus Congestion, Sinus Drainage Cardiovascular: Denies: Chest Pain, Orthopnea, Palpitations Respiratory: Denies: Cough, Shortness of breath at rest, Sputum production Gastrointestinal: Denies: Abdominal Pain, Nausea, Vomiting Genitourinary: Denies: Dysuria Musculoskeletal: Denies: Joint Pain, Joint stiffness, Joint swelling, Joint Tenderness Skin: Denies: Rash, Wounds Neurological: Denies: Numbness, Tingling, Focal weakness Vital Signs Vital Signs Vital Signs: 02/11/22 05:22 02/11/22 05:35 02/11/22 06:32 Temperature 97.5 F L 97.5 F L Temperature Source Temporal Oral Pulse Rate 132 H 129 H 113 H Respiratory Rate 18 18 Blood Pressure 182/99 H 182/99 H Blood Pressure Mean 126 126 Blood Pressure Source Monitor Blood Pressure Position Semi-Fowlers Blood Pressure Location Right Arm Pulse Ox 96 96 Oxygen Delivery Method Room Air Room Air Weight Weight: 99.79 kg Body Mass Index (BMI) 32.5 Physical Exam Narrative Physical exam: General: Alert, Oriented x3, appears shaky, tremolous, appears restless HEENT: Atraumatic, erythema of conjunctiva Oral: Moist Mucosa Neck: Supple Lungs:Diminished to auscultation Cardiovascular: HS I+II, regular, no murmurs Abdomen: Bowel Sounds Present, Soft, Non Tender Extremities: No edema Skin: Bruises all over the legs Neurological: Alert, oriented x3, visible shakes, Psych/Mental Status: Appropriate Results Lab / Micro Data Result Diagrams: 02/11/22 05:50 02/11/22 12:45 Labs: Laboratory Results - last 24 hr 02/11/22 05:50: WBC 7.1, RBC 4.49 L, Hgb 15.0, Hct 43.1, MCV 96.0 H, MCH 33.4 H, MCHC 34.8, RDW Std Deviation 49.7 H, RDW Coeff of [place] 14.5, Plt Count 112 L, MPV 8.7, Immature Gran % (Auto) 0.600, Neut % (Auto) 81.9 H, Lymph % (Auto) 9.0 L, Ross % (Auto) 8.2, Eos % (Auto) 0.0, Baso % (Auto) 0.3, Absolute Neuts (auto) 5.8, Absolute Lymphs (auto) 0.64 L, Nucleated RBC % 0 02/11/22 05:50: PT 13.1, INR 1.0 02/11/22 05:50: Sodium 131 L, Potassium 4.3, Chloride 96 L, Carbon Dioxide 15.0 L, Anion Gap 20 H, BUN 14, Creatinine 1.01, Estim Creat Clear Calc 85.56, Est GFR (MDRD) Af Amer 99, Est GFR (MDRD) Non-Af 82, BUN/Creatinine Ratio 13.9, Glucose 142 H, Calcium 8.6, Total Bilirubin 0.90, AST 157 H, ALT 118 H, Alkaline Phosphatase 91, Troponin I High Sens 6, Total Protein 7.6, Albumin 4.2, Globulin 3.4, Albumin/Globulin Ratio 1.2, Lipase 190 02/11/22 05:50: Ethyl Alcohol 5.0 02/11/22 06:30: Urine Opiates Screen NEGATIVE, Urine Methadone Screen NEGATIVE, Ur Barbiturates Screen NEGATIVE, Ur Phencyclidine Scrn NEGATIVE, Ur Amphetamines Screen NEGATIVE, MDMA (Ecstasy) Screen POSITIVE H, U Benzodiazepines Scrn NEGATIVE, Urine Cocaine Screen NEGATIVE, U Cannabinoids Screen NEGATIVE, Ur Drug Screen Comment 02/11/22 06:30: Urine Color Yellow, Urine Clarity Clear, Urine pH 5.0, Ur Specific [place] 1.030, Urine Protein 30 H, Urine Glucose (UA) Normal, Urine Ketones 150 A*, Urine Occult Blood Negative, Urine Nitrite Negative, Urine Bilirubin Negative, Urine Urobilinogen Normal, Ur Leukocyte Esterase Negative, Urine RBC 0 SEEN, Urine WBC 0 SEEN, Ur Squamous Epith Cells 0-5 SEEN, Urine Bacteria RARE, Hyaline Casts 0-5 SEEN, Urine Mucus RARE Rhythm Strip Rhythm Strip: Sinus Tach Rate: 126 Ectopy: None Assessment & Plan Assessment/Plan (1) Alcohol withdrawal: (2) Accelerated hypertension: (3) Alcohol intoxication: (4) Alcoholic ketoacidosis: PLAN: Plan 1. Severe alcohol withdrawal, in the patient with history of chronic alcohol abuse with history of DTs Will admit to PCU, monitor on alcohol withdrawal protocol with phenobarb 2. Acute alcohol/starvation ketoacidosis, with anion gap, Started on D5 water, will trend BMP q4h 3. Accelerated hypertension, likely secondary to #1 We will put on hydralazine as needed 4. Hyponatremia, likely related to alcohol, will trend 5. Nicotine dependence, on replacement 6. Anxiety/depression, continue on fluvoxamine and trazodone 7. DVT PPx- Heparin SC Charges/Coding Visit Charges Inpatient E&M: 43507 Init Hosp L3
[2022-02-11] MEDS: Dext 5%-0.45% NS 1,000 ML 250 ML IV ×2 (08:04→12:32)
[2022-02-11] MEDS: 0.9% Normal Saline 1,000 ML 999 ML IV (08:04)
[2022-02-11 08:39] LABS: Magnesium 2.1 mg/dL (1.6-2.6)
[2022-02-11] MEDS: Gabapentin 300 MG Capsule PO ×3 (09:39→17:20)
[2022-02-11] MEDS: Folic Acid 1 MG Tablet PO (09:39)
[2022-02-11] MEDS: Heparin Injection (Vial) 5,000 UNIT/ML VIAL 5000 UNIT SC ×2 (09:39→21:41)
[2022-02-11] MEDS: Phenobarbital 32.4 MG Tablet 64.8 MG PO ×4 (09:39→21:41)
[2022-02-11 09:46] LABS: Anion Gap 13 (5-15); BUN 14 mg/dL (7-18); BUN/Creat Ratio 14.4 RATIO (10-20); Chloride 99 mmol/L (98-107); Creatinine, Serum 0.97 mg/dL (0.70-1.30); EST Glomerular Filtration Rate 86 mL/min (>60); Est Glom Filt Rate - Afr Amer 104 mL/min (>60); Estimated Creatinine Clearance 91.98 ml/min; Glucose 143 mg/dL (74-106); Potassium 4.2 mmol/L (3.5-5.1); Sodium Level 134 mmol/L (136-145)
[2022-02-11] MEDS: Dicyclomine 10 MG Capsule 20 MG PO (10:07)
[2022-02-11] MEDS: hydrOXYzine PAM 25 MG Capsule 50 MG PO ×3 (10:08→21:41)
[2022-02-11] MEDS: LORazepam 2 MG/ML Syringe IV (10:15)
[2022-02-11] MEDS: Thiamine Hydrochloride 100 MG Tablet PO (12:33)
[2022-02-11 13:17] LABS: Anion Gap 8 (5-15); BUN 13 mg/dL (7-18); BUN/Creat Ratio 11.8 RATIO (10-20); Calcium,Total 8.6 mg/dL (8.5-10.1); Chloride 101 mmol/L (98-107); EST Glomerular Filtration Rate 75 mL/min (>60); Est Glom Filt Rate - Afr Amer 90 mL/min (>60); Estimated Creatinine Clearance 81.11 ml/min; Glucose 245 mg/dL (74-106); Potassium 3.7 mmol/L (3.5-5.1); Sodium Level 134 mmol/L (136-145)
[2022-02-11] MEDS: fluvoxaMINE Maleate 50 MG Tablet 100 MG PO ×2 (14:09→21:40)
[2022-02-11] MEDS: traZODone 100 MG Tablet 300 MG PO (21:40)
[2022-02-11] MEDS: 0.9% Saline Lock 10 ML Syringe IV (21:41)
[2022-02-12] VITALS (7 sets, daily range): BP systolic 130–158; BP diastolic 76–89; PULSE 77–89; RESP 16–18; TEMP 36.4–36.7; O2SAT 95–98
[2022-02-12] MEDS: Phenobarbital 32.4 MG Tablet 64.8 MG PO ×6 (01:45→21:16)
[2022-02-12] MEDS: hydrOXYzine PAM 25 MG Capsule 50 MG PO ×2 (05:34→21:16)
[2022-02-12 06:41] LABS: Absolute Lymphocyte Count 0.74 X10^3/uL (0.83-4.51); Absolute Neutrophil Count 1.4 X10^3/uL (2.0-7.7); Basophil# 0.02 X10^3/uL; Basophil% 0.8 % (0-1); Eosinophil# 0.03 X10^3/uL; Eosinophils% 1.2 % (0-5); Hemoglobin 13.8 g/dL (13.0-16.5); Lymphocyte # 0.74 X10^3/ul (0.83-4.51); Lymphocyte % 29.8 % (19-41); Mean Corp Hgb Conc 35.4 g/dL (32-36); Mean Corpuscular Hgb 34.2 pg (27.0-32.0); Mean Corpuscular Volume 96.8 fL (80-94); Mean Platelet Vol. 9.8 fl (6.2-12.0); Monocyte# 0.29 X10^3/uL; Monocyte% 11.7 % (0-10); NRBC Flagged by Analyzer 0 % (0-5); Neutrophil # 1.38 X10^3/uL (2.7-7.7); Neutrophil % 55.7 % (47-70); POSITIVE COUNT YES; Platelet Count 86 K/mm3 (150-450); RBC Distribution Width CV 14.7 % (11.6-14.6); RBC Distribution Width SD 51.8 fl (35.1-43.9); Red Blood Count 4.03 M/mm3 (4.6-6.2); White Blood Count 2.5 K/mm3 (4.4-11.0)
[2022-02-12 07:08] LABS: ALB/GLOB Ratio 1.1 RATIO (0.9-2.4); AST(SGOT) 132 U/L (15-37); Alanine Aminotransfer ALT/SGPT 100 U/L (16-61); Albumin, Serum 3.3 g/dL (3.2-5.0); Alkaline Phosphatase 82 U/L (45-117); Anion Gap 7 (5-15); BUN 12 mg/dL (7-18); BUN/Creat Ratio 15.9 RATIO (10-20); Calcium,Total 8.5 mg/dL (8.5-10.1); Chloride 101 mmol/L (98-107); Creatinine, Serum 0.75 mg/dL (0.70-1.30); EST Glomerular Filtration Rate 115 mL/min (>60); Est Glom Filt Rate - Afr Amer 139 mL/min (>60); Estimated Creatinine Clearance 118.96 ml/min; Glucose 95 mg/dL (74-106); Potassium 3.6 mmol/L (3.5-5.1); Protein, Total 6.3 g/dL (6.4-8.2); Sodium Level 138 mmol/L (136-145)
[2022-02-12] MEDS: fluvoxaMINE Maleate 50 MG Tablet 100 MG PO ×2 (08:36→21:16)
[2022-02-12] MEDS: Gabapentin 300 MG Capsule PO ×3 (08:36→17:14)
[2022-02-12] MEDS: Folic Acid 1 MG Tablet PO (08:36)
[2022-02-12] MEDS: Thiamine Hydrochloride 100 MG Tablet PO (08:36)
[2022-02-12] MEDS: Na Biphos/Potassium Phosphate PACKET 1 PACKET PO ×4 (08:37→21:16)
[2022-02-12] MEDS: Heparin Injection (Vial) 5,000 UNIT/ML VIAL 5000 UNIT SC ×2 (08:37→21:16)
--- NOTE | 2022-02-12 13:09 | PN.HOSP_ITS ---
Subjective Subjective Follow-up on acute alcohol withdrawal: Patient was seen and examined. He feels improved. No acute events overnight. Objective Data Objective Data Vital Signs: Vital Signs Temp Pulse Resp BP Pulse Ox 98.0 F 79 18 144/89 H 98 02/12/22 08:40 02/12/22 08:40 02/12/22 08:40 02/12/22 08:40 02/12/22 08:40 Oxygen Delivery Method Room Air Weight: 92.5 kg Body Mass Index (BMI) 29.2 Intake & Output: Intake and Output for Last 24 Hours 02/10/22 02/11/22 02/12/22 23:59 23:59 23:59 Intake Total 3737.5 / 3737.5 Balance 3737.5 / 3737.5 Lab / Micro Data Result Diagrams: 02/12/22 05:45 02/12/22 05:45 Labs: Laboratory Results - last 24 hr 02/11/22 12:45: Sodium 134 L, Potassium 3.7, Chloride 101, Carbon Dioxide 25.0, Anion Gap 8, BUN 13, Creatinine 1.10, Estim Creat Clear Calc 81.11, Est GFR (MD RD) Af Amer 90, Est GFR (MDRD) Non-Af 75, BUN/Creatinine Ratio 11.8, Glucose 245 H, Calcium 8.6 02/12/22 05:45: WBC 2.5 L, RBC 4.03 L, Hgb 13.8, Hct 39.0 L, MCV 96.8 H, MCH 34.2 H, MCHC 35.4, RDW Std Deviation 51.8 H, RDW Coeff of [place] 14.7 H, Plt Count 86 L, MPV 9.8, Immature Gran % (Auto) 0.800, Neut % (Auto) 55.7, Lymph % (Auto) 29.8, [place] % (Auto) 11.7 H, Eos % (Auto) 1.2, Baso % (Auto) 0.8, Absolute Neuts (auto) 1.4 L, Absolute Lymphs (auto) 0.74 L, Nucleated RBC % 0 02/12/22 05:45: Sodium 138, Potassium 3.6, Chloride 101, Carbon Dioxide 30.0, Anion Gap 7, BUN 12, Creatinine 0.75, Estim Creat Clear Calc 118.96, Est GFR (MDRD) Af Amer 139, Est GFR (MDRD) Non-Af 115, BUN/Creatinine Ratio 15.9, Glucose 95, Calcium 8.5, Phosphorus 2.0 L, Magnesium 2.0, Total Bilirubin 1.00, AST 132 H, ALT 100 H, Alkaline Phosphatase 82, Total Protein 6.3 L, Albumin 3.3, Globulin 3.0, Albumin/Globulin Ratio 1.1 Rhythm Strip Rhythm Strip: Sinus Tach Rate: 126 Ectopy: None Physical Exam Narrative Physical exam: General: Alert, Oriented x3, calm, not pale HEENT: Atraumatic, erythema of conjunctiva Oral: Moist Mucosa Neck: Supple Lungs:Diminished to auscultation Cardiovascular: HS I+II, regular, no murmurs Abdomen: Bowel Sounds Present, Soft, Non Tender Extremities: No edema Skin: Bruises all over the legs Neurological: Alert, oriented x3, improved tremors Psych/Mental Status: Appropriate Assessment & Plan Assessment/Plan (1) Alcohol withdrawal: (2) Accelerated hypertension: (3) Alcohol intoxication: (4) Alcoholic ketoacidosis: PLAN: Plan 1. Severe alcohol withdrawal, in the patient with history of chronic alcohol abuse with history of DTs Patient appears improved, CIWA score is 1 Continue on a phenobarbital withdrawal protocol 2. Acute alcohol/starvation ketoacidosis, with anion gap, resolved Anion gap has been closed, off D5NS 3. Accelerated hypertension, blood pressure is better controlled Will start patient on amlodipine 5 mg daily as well as continue hydralazine as needed 4. Hyponatremia, likely related to alcohol, will trend 5. Nicotine dependence, on replacement 6. Anxiety/depression, continue on fluvoxamine and trazodone 7. DVT PPx- Heparin SC Charges/Coding Visit Charges Inpatient E&M: 26796 Subs Hosp L2
--- NOTE | 2022-02-12 14:00 | ADDICTION ---
This fiction writer met with PT to conduct ASAM, MSE, AUDIT assessments and to plan for d/c. PT A+Ox4 and participated actively. All assessments completed and placed in PT's chart. PT plans to f/u with [facility] for follow-up outpatient treatment services. PT did not indicate a need for transportation post d/c from [facility].
[2022-02-12] MEDS: Mag Hydrox/Al Hydrox/Simeth 30 ML UDC PO (14:59)
[2022-02-12] MEDS: amLODIPine 5 MG Tablet PO (16:10)
[2022-02-13] MEDS: Phenobarbital 32.4 MG Tablet 64.8 MG PO ×6 (01:39→23:44)
[2022-02-13 03:13] VITALS: BP 137/87; PULSE 71; RESP 16; TEMP 36.6; O2SAT 97
[2022-02-13 07:09] LABS: Absolute Lymphocyte Count 0.97 X10^3/uL (0.83-4.51); Absolute Neutrophil Count 1.6 X10^3/uL (2.0-7.7); Basophil# 0.03 X10^3/uL; Eosinophil# 0.08 X10^3/uL; Eosinophils% 2.7 % (0-5); Hematocrit 40.5 % (40-54); Hemoglobin 14.1 g/dL (13.0-16.5); Lymphocyte # 0.97 X10^3/ul (0.83-4.51); Lymphocyte % 33.1 % (19-41); Mean Corp Hgb Conc 34.8 g/dL (32-36); Mean Corpuscular Hgb 33.5 pg (27.0-32.0); Mean Corpuscular Volume 96.2 fL (80-94); Mean Platelet Vol. 10.5 fl (6.2-12.0); Monocyte# 0.23 X10^3/uL; Monocyte% 7.8 % (0-10); NRBC Flagged by Analyzer 0 % (0-5); Neutrophil % 54.7 % (47-70); POSITIVE COUNT YES; Platelet Count 92 K/mm3 (150-450); RBC Distribution Width CV 15.1 % (11.6-14.6); RBC Distribution Width SD 52.2 fl (35.1-43.9); Red Blood Count 4.21 M/mm3 (4.6-6.2); White Blood Count 2.9 K/mm3 (4.4-11.0)
[2022-02-13 07:40] LABS: AST(SGOT) 275 U/L (15-37); Alanine Aminotransfer ALT/SGPT 182 U/L (16-61); Albumin, Serum 3.3 g/dL (3.2-5.0); Alkaline Phosphatase 101 U/L (45-117); Anion Gap 6 (5-15); BUN 8 mg/dL (7-18); BUN/Creat Ratio 12.2 RATIO (10-20); Calcium,Total 8.9 mg/dL (8.5-10.1); Chloride 102 mmol/L (98-107); Creatinine, Serum 0.66 mg/dL (0.70-1.30); EST Glomerular Filtration Rate 135 mL/min (>60); Est Glom Filt Rate - Afr Amer 164 mL/min (>60); Estimated Creatinine Clearance 135.19 ml/min; Globulin 3.4 g/dL (2.2-4.2); Glucose 112 mg/dL (74-106); Potassium 3.6 mmol/L (3.5-5.1); Protein, Total 6.7 g/dL (6.4-8.2); Sodium Level 137 mmol/L (136-145)
[2022-02-13 09:55] VITALS: BP 132/78; PULSE 86; RESP 16; TEMP 37.1; O2SAT 98
[2022-02-13] MEDS: hydrOXYzine PAM 25 MG Capsule 50 MG PO (10:01)
[2022-02-13] MEDS: Thiamine Hydrochloride 100 MG Tablet PO (10:01)
[2022-02-13] MEDS: Folic Acid 1 MG Tablet PO (10:01)
[2022-02-13] MEDS: fluvoxaMINE Maleate 50 MG Tablet 100 MG PO ×2 (10:01→21:57)
[2022-02-13] MEDS: Gabapentin 300 MG Capsule PO ×3 (10:01→17:00)
[2022-02-13] MEDS: amLODIPine 5 MG Tablet PO (10:02)
[2022-02-13] MEDS: Heparin Injection (Vial) 5,000 UNIT/ML VIAL 5000 UNIT SC ×2 (10:02→21:55)
[2022-02-13 12:48] LABS: Bacteria 0 SEEN /hpf (None Seen); Mucous, Urine 0 SEEN /hpf (<or=2+); Red Blood Cells-Urine 0 SEEN /hpf (0-5); Squamous Epithelial Cells - UA 0 SEEN /hpf (0-5); White Blood Cells 0 SEEN /hpf (0-5)
[2022-02-13 12:53] LABS: Color, Urine Yellow (Yellow); Glucose, Dipstick Normal (Normal); Ketone-Dipstick Negative (Negative); Leukocyte Esterase-Dipstick Negative /ul (Negative); Nitrite-Dipstick Negative (Negative); Occult Blood-Urine Negative /ul (Negative); Protein-Dipstick Negative (Negative); Urine Bilirubin Dipstick Negative (Negative); Urine Clarity Clear (Clear); Urine Urobilinogen Normal (Normal)
[2022-02-13] MEDS: Ibuprofen 600 MG Tablet PO (13:47)
--- NOTE | 2022-02-13 14:45 | PCM.PN.HOSP ---
Subjective Subjective Follow-up on acute alcohol withdrawal: Patient was seen and examined.?No acute events overnight. He complains of lower abdominal discomfort. Dysuria or fever or chills. Objective Data Objective Data Vital Signs: Vital Signs Temp Pulse Resp BP Pulse Ox 98.8 F 86 16 132/78 H 98 02/13/22 09:55 02/13/22 09:55 02/13/22 09:55 02/13/22 09:55 02/13/22 09:55 Oxygen Delivery Method Room Air Weight: 92.5 kg Body Mass Index (BMI) 29.2 Intake & Output: Intake and Output for Last 24 Hours 02/11/22 02/12/22 02/13/22 23:59 23:59 23:59 Intake Total 3737.5 / 3737.5 840 / 840 720 / 720 Balance 3737.5 / 3737.5 840 / 840 720 / 720 Lab / Micro Data Result Diagrams: 02/13/22 06:25 02/13/22 06:25 Labs: Laboratory Results - last 24 hr 02/13/22 06:25: WBC 2.9 L, RBC 4.21 L, Hgb 14.1, Hct 40.5, MCV 96.2 H, MCH 33.5 H, MCHC 34.8, RDW Std Deviation 52.2 H, RDW Coeff of [place]ich[place] 15.1 H, Plt Count 92 L, MPV 10.5, Immature Gran % (Auto) 0.700, Neut % (Auto) 54.7, Lymph % (Auto) 33.1, [place] % (Auto) 7.8, Eos % (Auto) 2.7, Baso % (Auto) 1.0, Absolute Neuts (auto) 1.6 L, Absolute Lymphs (auto) 0.97, Nucleated RBC % 0 02/13/22 06:25: Sodium 137, Potassium 3.6, Chloride 102, Carbon Dioxide 29.0, Anion Gap 6, BUN 8, Creatinine 0.66 L, Estim Creat Clear Calc 135.19, Est GFR (MDRD) Af Amer 164, Est GFR (MDRD) Non-Af 135, BUN/Creatinine Ratio 12.2, Glucose 112 H, Calcium 8.9, Total Bilirubin 0.60, AST 275 H, ALT 182 H, Alkaline Phosphatase 101, Total Protein 6.7, Albumin 3.3, Globulin 3.4, Albumin/Globulin Ratio 1.0 02/13/22 12:32: Urine Color Yellow, Urine Clarity Clear, Urine pH 8.0, Ur Specific [place] 1.010, Urine Protein Negative, Urine Glucose (UA) Normal, Urine Ketones Negative, Urine Occult Blood Negative, Urine Nitrite Negative, Urine Bilirubin Negative, Urine Urobilinogen Normal, Ur Leukocyte Esterase Negative, Urine RBC 0 SEEN, Urine WBC 0 SEEN, Ur Squamous Epith Cells 0 SEEN, Urine Bacteria 0 SEEN, Urine Mucus 0 SEEN Rhythm Strip Rhythm Strip: Sinus Tach Rate: 126 Ectopy: None Physical Exam Narrative Physical exam: General: Alert, Oriented x3, calm, not pale HEENT: Atraumatic, erythema of conjunctiva Oral: Moist Mucosa Neck: Supple Lungs:Diminished to auscultation Cardiovascular: HS I+II, regular, no murmurs Abdomen: Bowel Sounds Present, Soft, Non Tender Extremities: No edema Skin: Bruises all over the legs Neurological: Alert, oriented x3, improved tremors Psych/Mental Status: Appropriate Assessment & Plan Assessment/Plan (1) Alcohol withdrawal: (2) Accelerated hypertension: (3) Alcohol intoxication: (4) Alcoholic ketoacidosis: PLAN: Plan 1. Severe alcohol withdrawal, in the patient with history of chronic alcohol abuse with history of DTs Patient appears improved, CIWA score is 1 Continue on a phenobarbital withdrawal protocol 2. Acute alcohol/starvation ketoacidosis, with anion gap, resolved Anion gap has been closed, off D5NS 3. Accelerated hypertension, controlled Continue on amlodipine 5 mg daily as well as continue hydralazine as needed 4. Hyponatremia, likely related to alcohol, resolved 5. Nicotine dependence, on replacement 6. Anxiety/depression, continue on fluvoxamine and trazodone 7. DVT PPx- Heparin SC Charges/Coding Visit Charges Inpatient E&M: 29544 Subs Hosp L2
--- NOTE | 2022-02-13 15:40 | CASEMGMT ---
Addendum entered by Haydee Mejía 02/13/22 16:25: SW spoke with Jessica in [employer]. Pt signed forms for [employer] and Medicaid and it was discussed in detail with pt. Medicaid application has been submitted to [employer]. SW met with pt and explained what documents were signed. SW spoke at length with pt about Medicaid and how it works. At this time pt states understanding and is agreeable to continuing the Medicaid process. AL Escalera Original Note: Social Work Pt approached SW requesting a copy of the documents he signed with [employer]. Pt asking if he signed up for Medicaid and states he does not want to do this. SW placed call to [employer] and left voicemail regarding pt concerns. Pt reassured that pt would be updated when GONZALEZ hears back from [employer]. AL Escalera
[2022-02-13 16:58] VITALS: BP 141/91; PULSE 83; RESP 18; TEMP 36.7; O2SAT 97
[2022-02-13 21:45] VITALS: BP 144/88; PULSE 80; RESP 18; TEMP 36.3; O2SAT 96
[2022-02-14] MEDS: Ibuprofen 600 MG Tablet PO (02:29)
[2022-02-14] MEDS: traZODone 100 MG Tablet 300 MG PO (02:44)
[2022-02-14 03:31] VITALS: BP 130/93; PULSE 63; RESP 18; TEMP 35.7; O2SAT 98
[2022-02-14 04:22] VITALS: BP 130/93; PULSE 63; RESP 18; TEMP 35.7; O2SAT 98
[2022-02-14] MEDS: Phenobarbital 32.4 MG Tablet 64.8 MG PO ×2 (05:41→11:14)
--- NOTE | 2022-02-14 07:41 | DCINST_ITS ---
Discharge Instructions Diet Discharge Diet: 2000 mg Sodium Diet Activity Discharge Activity: Return to Normal Activity Weight Bearing Status: Weight bearing as tolerated Follow Up Care Test Results: Test results from this visit will be discussed in further detail at your follow- up appointment, if applicable. Discharge Plan Admission Admit Date/Time: 02/11/22 07:22 Primary Reason for Your Visit: Severe alcohol withdrawal Attending Provider: Arlin Felder Primary Care Provider: Dagoberto Mari Instructions Additional Instructions / Restrictions: Take note of change to your medications. Follow-up with your outpatient plan as planned Discharge Orders/Prescriptions Prescriptions: New amlodipine 5 mg Tablet 5 mg PO DAILY 30 Days Qty: 30 0RF Continued gabapentin 300 MG capsule 300 mg PO TIDCM 30 Days Qty: 90 3RF trazodone 150 MG tablet 300 mg PO QHS PRN (Reason: Sleep) 30 Days Qty: 60 0RF fluvoxamine 100 MG tablet 100 mg PO BID 30 Days Qty: 60 4RF Referrals / Follow Up: Dagoberto Mari MD [Primary Care Provider] - Within 1 Week Disposition Disposition (needs filled in before D/C Order can be placed): Home, Self Care
--- NOTE | 2022-02-14 08:24 | DS.PCM_ITS ---
Providers Date of Admission: 02/11/22 Date of Discharge: 02/14/22 Primary Care Physician: Dr. Dagoberto Mari MD Reason For Visit: SEVERE ALCOHOL WITHDRAWAL Diagnosis Discharge Diagnosis (1) Alcohol withdrawal: Status: Acute Code(s): F10.239 - Alcohol dependence with withdrawal, unspecified (2) Accelerated hypertension: Status: Acute Code(s): I10 - Essential (primary) hypertension (3) Alcohol intoxication: Status: Acute Code(s): F10.929 - Alcohol use, unspecified with intoxication, unspecified (4) Alcoholic ketoacidosis: Status: Acute Code(s): E87.2 - Acidosis Medications at Discharge Home Medications fluvoxamine 100 mg tablet 100 mg PO BID 30 days #60 tabs 05/11/18 gabapentin 300 mg capsule 300 mg PO TIDCM 30 days #90 caps 05/11/18 trazodone 150 mg tablet 300 mg PO QHS PRN Sleep 30 days #60 tabs 05/11/18 amlodipine 5 mg tablet 5 mg PO DAILY 30 days #30 tabs 02/14/22 Hospital Course Operations None Procedures 2-D Echocardiogram Summary of Care Provided Minutes Spent on Discharge: 35 Hospital Course: 51-year-old male with past medical history of chronic alcohol abuse with history of DTs, hypertension who comes in requesting for medical stabilization. Patient admits to drinking a liter of vodka a day. He has stopped drinking a day and half before admission. He comes in with severe alcohol withdrawal with nausea and vomiting epigastric discomfort, generalized pain, tremors. His blood pressure on admission was 182/99. He was found to have alcoh olic/starvation ketoacidosis. He was admitted to the PCU and monitored on the phenobarbital withdrawal protocol as well as IV fluids. Patient did well. His anion gap was closed. He was started on medication for high blood pressure. His blood pressure is well controlled at time of discharge. Patient was seen by the structural steel worker helper and will follow up with [facility] for outpatient treatment services. Patient was prescribed amlodipine at discharge. He knows to follow-up with his primary care doctor within a week. Physical Exam Narrative Physical exam: General: Alert, Oriented x3, calm, not pale HEENT: Atraumatic, erythema of conjunctiva Oral: Moist Mucosa Neck: Supple Lungs:Diminished to auscultation Cardiovascular: HS I+II, regular, no murmurs Abdomen: Bowel Sounds Present, Soft, Non Tender Extremities: No edema Skin: Bruises all over the legs Neurological: Alert, oriented x3, improved tremors Psych/Mental Status: Appropriate Weight / BMI Weight Weight: 92.5 kg Body Mass Index (BMI) 29.2 ABG / Lab / Microbiology Data Result Diagrams: 02/13/22 06:25 02/13/22 06:25 Laboratory: Laboratory Results - last 24 hr 02/13/22 12:32: Urine Color Yellow, Urine Clarity Clear, Urine pH 8.0, Ur Specific [place] 1.010, Urine Protein Negative, Urine Glucose (UA) Normal, Urine Ketones Negative, Urine Occult Blood Negative, Urine Nitrite Negative, Urine Bilirubin Negative, Urine Urobilinogen Normal, Ur Leukocyte Esterase Negative, Urine RBC 0 SEEN, Urine WBC 0 SEEN, Ur Squamous Epith Cells 0 SEEN, Urine Bacteria 0 SEEN, Urine Mucus 0 SEEN D/C Instructions Discharge Diet: 2000 mg Sodium Diet Weight Bearing Status: Weight bearing as tolerated Meaningful Use Info Meaningful Use Diagnoses (Choose all that apply): None applicable Discharge Plan Admission Admit Date/Time: 02/11/22 07:22 Primary Reason for Your Visit: Severe alcohol withdrawal Attending Provider: Arlin Felder Primary Care Provider: Dagoberto Mari Instructions Additional Instructions / Restrictions: Take note of change to your medications. Follow-up with your outpatient plan as planned Discharge Orders/Prescriptions Prescriptions: New amlodipine 5 mg Tablet 5 mg PO DAILY 30 Days Qty: 30 0RF Continued gabapentin 300 MG capsule 300 mg PO TIDCM 30 Days Qty: 90 3RF trazodone 150 MG tablet 300 mg PO QHS PRN (Reason: Sleep) 30 Days Qty: 60 0RF fluvoxamine 100 MG tablet 100 mg PO BID 30 Days Qty: 60 4RF Referrals / Follow Up: Dagoberto Mari MD [Primary Care Provider] - Within 1 Week Disposition Disposition (needs filled in before D/C Order can be placed): Home, Self Care Charges/Coding Visit Charges Inpatient E&M: 02623 Disch Hosp
[2022-02-14] MEDS: Folic Acid 1 MG Tablet PO (08:51)
[2022-02-14] MEDS: Gabapentin 300 MG Capsule PO ×2 (08:51→11:14)
[2022-02-14] MEDS: Thiamine Hydrochloride 100 MG Tablet PO (08:51)
[2022-02-14] MEDS: fluvoxaMINE Maleate 50 MG Tablet 100 MG PO (08:52)
[2022-02-14 10:10] VITALS: BP 139/85; PULSE 86; RESP 16; TEMP 36.5; O2SAT 98
[2022-02-14] MEDS: Heparin Injection (Vial) 5,000 UNIT/ML VIAL 5000 UNIT SC (10:11)
[2022-02-14] MEDS: amLODIPine 5 MG Tablet PO (10:11)
--- NOTE | 2022-02-14 11:27 | CHAPLAIN ---
Type of Pastoral Visit _x__ Initial Visit ___ Follow-up Visit ___ On-call Visit ___ General Patient Visit ___ Spiritual Assessment ___ Family Conference ___ Bereavement ___ Rapid Response ___ Code Blue ___ Other (describe below) Pastoral Care Referral From _x__ Patient ___ Family ___ Nurse ___ Physician ___ Chicken Cutter ___ Bag Machine Operator Helper ___ Other (describe below) Sacrament/Intervention _x__ Active listening ___ Anointing ___ Scientologist ___ Bereavement ___ Communion ___ Radha exploration ___ ___ Life review ___ Prayer ___ Reconciliation ___ Sacrament of Sick ___ Supportive presence ___ Wedding ___ Other (describe below) Pastoral Comments door to patient room open and pt is sitting on bed; greeted patient and introduced role of director software development; offer of presence and support; pt is welcoming and states he is doing much better now; pt is expecting a ride soon to go home; pt goal is to get some more sleep and is hopeful for better days ahead; patient states he is not in need of anything at this time
--- NOTE | 2022-02-14 13:54 | CASEMGMT ---
Patient called in to [facility] and indicated he lost the outpatient information that Chai the disaster or damage control specialist gave him. After reviewing Chai's notes SW called patient back and gave him information on [facility] in [place]. Linda VOGEL
== END 2022-02-14 11:48 | disposition home or self-care (01) | DRG 897 ==
LOC: ED 07:12 → PCU 07:38
PROVIDERS: Admitting Provider Internal Medicine; Emergency Provider Emergency Medicine; PCP Family Medicine; Visit Provider Internal Medicine
DX: F10.231 Alcohol dependence with withdrawal delirium (principal); E87.2 Acidosis; I10 Essential (primary) hypertension; I16.0 Hypertensive urgency; F41.9 Anxiety disorder, unspecified; F17.210 Nicotine dependence, cigarettes, uncomplicated; S80.11XA Contusion of right lower leg, initial encounter; S80.12XA Contusion of left lower leg, initial encounter; S40.011A Contusion of right shoulder, initial encounter; W19.XXXA Unspecified fall, initial encounter; Z79.899 Other long term (current) drug therapy; F32.A Depression, unspecified
CPT/HCPCS: 36415; 80048; 80053; 80307; 81001; 82077; 83690; 83735; 84100; 84484; 85025; 85610; 87086; 93005; 97802; 99284; 99406; J7030; A4216; J2405; J3490; J7799

== ENCOUNTER 2022-03-13 00:18 | Emergency (ER) | payer MEDICAID, SELFPAY ==
--- NOTE | 2022-03-14 01:11 | EDS_ITS ---
HPI History of Present Illness Informant: patient Narrative Narrative: Patient presents complaining of bilateral conjunctivitis. This is been going on for about a week. He did have a URI with some nasal congestion or cough initially but those symptoms are gone. He was seen by somebody and placed on tobramycin drops starting about 4 days ago. He states it slightly improved but still has a lot of discharge. Its not painful. He has no fevers chills. He has no loss of vision. Of note he was also placed on azithromycin for his URI symptoms but those antibiotics are done. He has not developed any facial rash at any time. No trauma. No welding exposure. No new medications other than as above. No history of major ocular issues. He does have a history of some psychiatric illness as well as alcoholism. This chart is done in its entirety a day or more after the patient's visit. This is due to an extended computerized downtime that included computer, Internet, phones, radiology system and transient inability to obtain medications. There may be details that are missed due to the delayed documentation. There was also no ability to research old information that we may have on the patient. Also, this is done with [employer] software that may have errors. Minimizing these errors are attempted, but all may not be able to be found and corrected. PFSH PFS Medical History Anxiety Depression ETOH abuse History of foot fracture HTN (hypertension) Jaundice due to hepatitis Methamphetamine abuse Smoker Home Medications fluvoxamine 100 mg tablet 100 mg PO BID 30 days #60 tabs 05/11/18 [Rx Last Taken Unknown] gabapentin 300 mg capsule 300 mg PO TIDCM 30 days #90 caps 05/11/18 [Rx Last Taken Unknown] trazodone 150 mg tablet 300 mg PO QHS PRN Sleep 30 days #60 tabs 05/11/18 [Rx Last Taken Unknown] amlodipine 5 mg tablet 5 mg PO DAILY 30 days #30 tabs 02/14/22 [Rx Last Taken Unknown] Allergy/AdvReac Type Severity Reaction Status Date / Time amoxicillin AdvReac Upset Verified 02/11/22 05:25 Stomach Family History Mother No problems noted. Father CAD (coronary artery disease) Heart disease Myocardial infarction Surgical History S/P herniorrhaphy Social History household members: significant other housing: apartment Smoking Status: Current every day smoker alcohol intake: current substance use type: does not use ROS ROS ED Constitutional Constitutional ED: Denies fever(s), subjective or sweats Eyes Eyes: Reports other Details: Bilateral discharge and matting. ; Denies blurry vision, change in vision or diplopia ENT ENT ED: Reports rhinorrhea, sore throat and other Details: Rhinorrhea and sore throat improving. They are essentially gone at this time but started slightly before the eye symptoms. Cardiovascular Cardiovascular: Denies chest pain or palpitations Respiratory/Chest Respiratory/Chest: Reports cough and other Details: Patient had some cough symptoms but those are also gone now. ; Denies dyspnea, dyspnea on exertion or sputum Gastrointestinal Gastrointestinal: Denies nausea or vomiting Musculoskeletal Musculoskeletal: Denies arthralgias or myalgias Integumentary Denies Abrasions or rash Neurologic Neurologic: Denies headache(s) Endocrine Endocrinology: Denies polydipsia or polyuria Hematologic/Lymphatic Hematologic/Lymphatic: Denies lymphadenopathy Allergic/Immunologic Allergic/Immunologic ED: Denies urticaria EXAM Physical Exam Const Positive well nourished and well developed General Appearance ED: well developed and NAD; Negative for pallor HEENT Reports moist mucous membranes HEENT Narrative: No facial swelling. No rash. No sinus tenderness. No nasal discharge. Negative Krishnamurthy sign Eyes PERRL and EOMs intact bilaterally Eyes Narrative: Excellent range of motion. No lid swelling. But there is some bilateral discharge and mild injection of the conjunctive a. The discharge is whitish. No hyphema. No hypopyon. No photophobia. No limitation of range of motion. General Eye ED: Negative for pale conjunctiva or scleral icterus Neck no lymphadenopathy Resp normal respiratory effort Cardio regular rate and regular rhythm Neuro Sensorium / Orientation: alert Psych mental status grossly normal Skin no rashes or lesions noted General Skin Exam: Negative for jaundice or pallor Lesions: No lesion noted Rashes: No rashes noted Trauma: Negative for abrasion MDM MDM MDM Narrative Medical decision making narrative: Patient does have symptoms of conjunctivitis. This may all be viral as he had a URI that is now better. It is on both eyes equally. No sign of lid swelling. No pain with motion of the eyes. No sign of orbital cellulitis. He may just not be responding to tobramycin. We will change his prescription and have him follow-up with ophthalmology(Dr. Knowles). We discussed reasons to return including any loss or decrease in vision, pain with motion, headaches, vomiting, photophobia or other concerns. Discharge Plan Triage ED Provider: Saw Chase Dx/Rx/DC Orders Clinical Impression: Bilateral conjunctivitis Prescriptions: No Action gabapentin 300 MG capsule 300 mg PO TIDCM 30 Days Qty: 90 3RF trazodone 150 MG tablet 300 mg PO QHS PRN (Reason: Sleep) 30 Days Qty: 60 0RF fluvoxamine 100 MG tablet 100 mg PO BID 30 Days Qty: 60 4RF amlodipine 5 mg Tablet 5 mg PO DAILY 30 Days Qty: 30 0RF Primary Care Provider: Dagoberto Mari Disposition Disposition: Home, Self Care Discharge Date/Time: 03/13/22 08:04
== END 2022-03-13 08:04 | disposition home or self-care (01) ==
LOC: ED 05:42
PROVIDERS: Emergency Provider Emergency Medicine; PCP Family Medicine; Visit Provider Emergency Medicine
DX: H10.9 Unspecified conjunctivitis (principal); I10 Essential (primary) hypertension; F17.200 Nicotine dependence, unspecified, uncomplicated; F32.A Depression, unspecified; F41.9 Anxiety disorder, unspecified; Z79.899 Other long term (current) drug therapy
CPT/HCPCS: 99283

== ENCOUNTER 2022-05-22 13:39 | Inpatient (IN) | payer BC, SELFPAY ==
[2022-05-22] VITALS (16 sets, daily range): BP systolic 122–163; BP diastolic 67–93; PULSE 91–120; RESP 15–32; TEMP 36.4–37; O2SAT 87–97; BMI 27.5; BMI 27.1
--- NOTE | 2022-05-22 13:59 | EDS_ITS ---
HPI History of Present Illness Chief Complaint: ETOH Intox Informant: patient Onset/Context/Timing Onset: Today Timing: Continuous Quality: Aching Location: Generalized Worsened by: Nothing Relieved by: Nothing Associated Symptoms Associated Symptoms: Positive for palpatations; Negative for vomiting*, diarr hea*, fever*, rash*, seizure, tremor, change in mental status, suicidal ideation or homicidal ideation Narrative Narrative: Patient presents requesting detox from alcohol. Patient states he drinks 1/5 of alcohol per day. Patient states that he was through detox here couple months ago. Patient states he started drinking again recently due to increased stressors in his life. Patient states his last drink was approximately 5 hours ago. Patient admits to general myalgias. Patient also admits to some palpitations. Patient denies any fevers or chills. Patient does admit to a sore throat. PFSH PFSH Medical History Anxiety Depression ETOH abuse History of foot fracture HTN (hypertension) Jaundice due to hepatitis Methamphetamine abuse Smoker Home Medications fluvoxamine 100 mg tablet 100 mg PO BID 30 days #60 tabs 05/11/18 [Rx Last Taken Unknown] gabapentin 300 mg capsule 300 mg PO TIDCM 30 days #90 caps 05/11/18 [Rx Last Taken Unknown] trazodone 150 mg tablet 300 mg PO QHS PRN Sleep 30 days #60 tabs 05/11/18 [Rx Last Taken Unknown] amlodipine 5 mg tablet 5 mg PO DAILY 30 days #30 tabs 02/14/22 [Rx Last Taken Unknown] Allergy/AdvReac Type Severity Reaction Status Date / Time amoxicillin AdvReac Upset Verified 05/22/22 13:43 Stomach Family History Mother No problems noted. Father CAD (coronary artery disease) Heart disease Myocardial infarction Surgical History S/P herniorrhaphy Social History household members: significant other housing: apartment Smoking Status: Current every day smoker tobacco type: cigarettes alcohol intake: current substance use type: does not use ROS ROS ED Constitutional Constitutional ED: Denies chills or fever(s) Eyes Eyes: Denies blurry vision or change in vision ENT ENT ED: Reports sore throat; Denies rhinorrhea Cardiovascular Cardiovascular: Reports palpitations; Denies chest pain Respiratory/Chest Respiratory/Chest: Reports cough; Denies dyspnea Gastrointestinal Gastrointestinal: Denies nausea or vomiting Genitourinary Genitourinary ED: Reports hematuria; Denies dysuria Musculoskeletal Musculoskeletal: Reports myalgias; Denies back pain or neck pain Integumentary Denies abscess or rash Neurologic Neurologic: Denies headache(s) or weakness Allergic/Immunologic Allergic/Immunologic ED: Denies mouth swelling or urticaria EXAM Physical Exam Const Vital Signs: 05/22/22 13:40 Temperature 97.5 F L Temperature Source Temporal Pulse Rate 120 H Respiratory Rate 32 H Blood Pressure 158/93 H Blood Pressure Mean 114 Pulse Ox 96 Oxygen Delivery Method Room Air Positive well nourished and well developed General Appearance ED: well developed and NAD HEENT Reports moist mucous membranes Neck supple and no JVD Resp normal respiratory effort and clear to auscultation bilaterally Cardio regular rhythm Rate: tachycardic Neuro oriented x3, CN's II-XII intact bilaterally and no sensory deficits noted [place] Coma Scale: document GCS findings Spontaneous Obeys Commands Oriented 15 Sensorium / Orientation: alert Speech: speech normal Motor Exam: strength 5/5 throughout Psych mental status grossly normal Mood & Affect: anxious MDM MDM MDM Narrative Medical decision making narrative: Basic labs were obtained. Patient was given a dose of phenobarbital here. Case was discussed with the hospitalist. He will admit the patient for d etoxification. Patient understood and was agreeable with the plan. All questions were answered. Discharge Plan Triage Chief Complaint: ETOH Intox ED Provider: Dagoberto Restrepo Dx/Rx/DC Orders Clinical Impression: Alcohol withdrawal, Desire for detoxification Prescriptions: No Action gabapentin 300 MG capsule 300 mg PO TIDCM 30 Days Qty: 90 3RF trazodone 150 MG tablet 300 mg PO QHS PRN (Reason: Sleep) 30 Days Qty: 60 0RF fluvoxamine 100 MG tablet 100 mg PO BID 30 Days Qty: 60 4RF amlodipine 5 mg Tablet 5 mg PO DAILY 30 Days Qty: 30 0RF Primary Care Provider: Dagoberto Mari Referrals: Dagoberto Mari MD [Primary Care Provider] - Disposition Disposition: [facility]
[2022-05-22] MEDS: Phenobarbital 32.4 MG Tablet 97.2 MG PO (14:26)
--- NOTE | 2022-05-22 14:29 | CM.ED ---
GONZALEZ Note Referral Source: Case Find Referral Reason: EMILIANO ROTH met with patient and his girlfriend in ED room #6. Patient gave verbal consent to speak to him in the presence of his girlfriend. Patient voiced he last used alcohol 4-5 hours ago. He reports coming to the ED for alcohol withdrawal. Patient reports drinking 1/5 th a day. GONZALEZ reviewed rules of the [facility] program and patienb verbalized understanding. GONZALEZ called [facility] and updated her that patient is in the ED for admission to [facility] program. Plan: EMILIANO GOLD
--- NOTE | 2022-05-22 14:32 | HP.PCM.HOS_ITS ---
HPI - General General Date of Service: 05/22/22 Chief Complaint: Alcohol withdrawal HPI Narrative ALTHEA TIERNEY, is a 52 M who presents seeking alcohol withdrawal. Patient was noted simmered for alcohol withdrawal but then started drinking again. He drinks 1/5 of Nabil Beam daily. His last drink was about 5 hours ago and since then he is diaphoretic and tremulous. He feels very unwell and just has diffuse myalgias. [facility] Medical History Anxiety Depression ETOH abuse History of foot fracture HTN (hypertension) Jaundice due to hepatitis Methamphetamine abuse Smoker Home Medications fluvoxamine 100 mg tablet 100 mg PO BID 30 days #60 tabs 05/11/18 [Rx Last Taken Unknown] gabapentin 300 mg capsule 300 mg PO TIDCM 30 days #90 caps 05/11/18 [Rx Last Taken Unknown] trazodone 150 mg tablet 300 mg PO QHS PRN Sleep 30 days #60 tabs 05/11/18 [Rx Last Taken Unknown] amlodipine 5 mg tablet 5 mg PO DAILY 30 days #30 tabs 02/14/22 [Rx Last Taken Unknown] Allergy/AdvReac Type Severity Reaction Status Date / Time amoxicillin AdvReac Upset Verified 05/22/22 13:43 Stomach Family History Mother No problems noted. Father CAD (coronary artery disease) Heart disease Myocardial infarction Surgical History S/P herniorrhaphy Social History household members: significant other housing: apartment Smoking Status: Current every day smoker tobacco type: cigarettes alcohol intake: current substance use type: does not use ROS ROS Narrative All review of systems were negative except as mentioned above in the history of present illness and the other review of systems. Vital Signs Vital Signs Vital Signs: 05/22/22 13:40 Temperature 36.4 C L Temperature Source Temporal Pulse Rate 120 H Respiratory Rate 32 H Blood Pressure 158/93 H Blood Pressure Mean 114 Pulse Ox 96 Oxygen Delivery Method Room Air Weight Weight: 87 kg Body Mass Index (BMI) 27.5 Physical Exam Const alert Constitutional Narrative: Diaphoretic. Appears ill. Tremulous. HEENT normocephalic, head/scalp atraumatic, hearing grossly normal bilaterally and moist oral mucous membranes Eyes PERRL Resp normal respiratory effort, no retractions, no use of accessory muscles and clear to auscultation bilaterally Cardio regular rate, regular rhythm, S1 normal heart sound and S2 normal heart sound GI normal to inspection, nondistended, normoactive bowel sounds, soft to palpation, non-tender and non-distended Extremity normal to inspection Assessment & Plan Assessment/Plan (1) Alcohol withdrawal: PLAN: Acute alcohol withdrawal Last drink was on the Patient peers very unwell. Concern for worsening status including delirium tremens or potential withdrawal seizure. Initiate phenobarbital taper. If patient does decline, then would consider Precedex drip and ICU transfer. Explained the patient and his significant other, who is at bedside, that this is not a passive process, however, we will get him through his acute alcohol withdrawal but it be important for him to follow-up and engage with therapy upon discharge. Patient segment other states that she is undergoing therapy, I did not ask but I presume for alcohol issue was associating is in her treatment being similar. PLAN: Plan VTE prophylaxis: Low risk at this time. Discussed with the patient's significant other at bedside. Charges/Coding Visit Charges Inpatient E&M: 23177 Init Hosp L2
[2022-05-22] MEDS: 0.9% Normal Saline 1,000 ML 1000 ML IV (14:33)
[2022-05-22 14:38] LABS: Absolute Lymphocyte Count 2.17 X10^3/uL (0.83-4.51); Absolute Neutrophil Count 7.5 X10^3/uL (2.0-7.7); Basophil# 0.05 X10^3/uL; Basophil% 0.5 % (0-1); Hematocrit 50.9 % (40-54); Lymphocyte # 2.17 X10^3/ul (0.83-4.51); Lymphocyte % 20.6 % (19-41); Mean Corp Hgb Conc 35.8 g/dL (32-36); Mean Corpuscular Hgb 33.7 pg (27.0-32.0); Mean Corpuscular Volume 94.3 fL (80-94); Mean Platelet Vol. 9.6 fl (6.2-12.0); Monocyte# 0.77 X10^3/uL; Monocyte% 7.3 % (0-10); NRBC Flagged by Analyzer 0 % (0-5); Neutrophil % 71.2 % (47-70); Platelet Count 167 K/mm3 (150-450); RBC Distribution Width CV 14.2 % (11.6-14.6); RBC Distribution Width SD 49.1 fl (35.1-43.9); White Blood Count 10.5 K/mm3 (4.4-11.0)
[2022-05-22 14:53] LABS: ALB/GLOB Ratio 1.1 RATIO (0.9-2.4); AST(SGOT) 90 U/L (15-37); Alanine Aminotransfer ALT/SGPT 48 U/L (16-61); Alkaline Phosphatase 86 U/L (45-117); Anion Gap 20 (5-15); BUN 20 mg/dL (7-18); BUN/Creat Ratio 20.1 RATIO (10-20); Calcium,Total 8.6 mg/dL (8.5-10.1); Chloride 99 mmol/L (98-107); Creatinine, Serum 0.99 mg/dL (0.70-1.30); EST Glomerular Filtration Rate 84 mL/min (>60); Est Glom Filt Rate - Afr Amer 101 mL/min (>60); Globulin 3.7 g/dL (2.2-4.2); Glucose 101 mg/dL (74-106); Lipase 279 U/L (73-393); Potassium 4.2 mmol/L (3.5-5.1); Protein, Total 7.7 g/dL (6.4-8.2); Sodium Level 139 mmol/L (136-145)
[2022-05-22 15:06] LABS: Hemoglobin 18.2 g/dL (13.0-16.5)
[2022-05-22] MEDS: Ibuprofen 600 MG Tablet PO (15:44)
[2022-05-22] MEDS: hydrOXYzine PAM 25 MG Capsule 50 MG PO ×2 (15:44→21:31)
--- NOTE | 2022-05-22 15:45 | ED.RN ---
LAB CALLED CRITICAL OF ETOH OF 306. THIS RN CALLED PCU AND SPOKE WITH DARREL RELAYING INFORMATION
[2022-05-22] MEDS: Acetaminophen 500 MG Tablet PO ×2 (17:12→21:32)
[2022-05-22] MEDS: Gabapentin 300 MG Capsule PO (17:12)
[2022-05-22] MEDS: LORazepam 2 MG/ML Syringe IV (17:12)
--- NOTE | 2022-05-22 18:28 | NURSING ---
1800-report called MIROSLAVA Russell for ICU transfer
[2022-05-22] MEDS: 0.9% Normal Saline 1,000 ML 150 ML IV (19:38)
[2022-05-22] MEDS: 0.9% Saline Lock 10 ML Syringe IV (19:38)
[2022-05-22] MEDS: TITRATION PARAMETER CHANGE 1 EACH IV (19:45)
--- NOTE | 2022-05-22 19:51 | CON.PCM.CC_ITS ---
Assessment & Plan Assessment/Plan (1) Alcohol withdrawal: PLAN: Patient is on the [facility] CIWA protocol. Assessments are every 1 hour while patient is comfortable. Increase meds and shorten observations periods if he becomes agitated again. To start, use the CIWA scale q 15-60 min. assessments, and give additional medication when the CIWA score is 8 and above. Smaller doses, more frequently help prevent oversedation. Patient is on a phenobarb protocol, and is currently (8:39PM) comfortable and lightly sleeping, (Last dose ativan IV at 5 PM 2 mg) with HR 97 and SpO2 94% on room air. Precedex at 0.6 mcg drip just started running. May increase to max of 1.4 mcg. PRN Acute control of severe breakthrough withdrawal and agitation: give additional ativan (1-2 mg IV), valium (2-7 mg IV) or versed (3-8 mg IV) every 10-15 min. only until acute symptoms are controlled, then decrease to every 1-4 hours reass essments and med administration as clinically appropriate. If frequent IV benzos are needed for control in addition to the above, a benzodiazepine drip of your choice may be started in addition to the 2 meds above, and are titratable for smoother detox. -continue gabapentin po if it is safe (sedation and swallowing) for patient to take PO. (2) Acute alcohol intoxication delirium with moderate or severe use disorder: PLAN: as above (3) Desire for detoxification: PLAN: as above agree with need for mandatory counseling and follow up. (4) Methamphetamine abuse: PLAN: detox as above. (5) Transaminitis: PLAN: supportive care, avoid hepatotoxins (tylenol) (6) DONTA (acute kidney injury): PLAN: NS at 125/hr IV, decrease as BUN normalizes. (7) Tobacco use: PLAN: nicotine replacement therapy (patches) 21 mg daily, off at night. PLAN: Plan Thank you for consulting pulmonary critical care on your pleasant patient, please call if further input is needed, I will round on him again in the morning Critical care time spent with patient at bedside, review of documentation, lab results, radiology and other test results, discussion with colleagues and ancillary staff, clinical management of patient, and updating family if applicable, was 35 minutes. Critical care code today: 00259. HPI Consult Data Date of Consult: 05/22/22 HPI Narrative Reason for Consultation: EtOH withdrawal HPI Narrative: ALTHEA TIERNEY, is a 52 M who presents for elective EtOH detoxification. EtOH level is >350, similar to past presentations in 2018 and 2016. He is in ICU due to PO phenobarbital regimen being unable to control his tachycardia and tremors, therefore transferred for IV drips and respiratory support as needed. LFTs are abnormal. He also has a history of methamphetamine abuse. [facility] Medical History Anxiety Depression ETOH abuse History of foot fracture HTN (hypertension) Jaundice due to hepatitis Methamphetamine abuse Smoker Home Medications fluvoxamine 100 mg tablet 100 mg PO BID 30 days #60 tabs 05/11/18 [Rx Last Taken Unknown] trazodone 150 mg tablet 300 mg PO QHS PRN Sleep 30 days #60 tabs 05/11/18 [Rx Last Taken 3 Days Ago ~05/19/22] buspirone 15 mg tablet 15 mg PO TID 05/22/22 [History Last Taken Unknown] gabapentin 300 mg capsule 300 mg PO DAILY 05/22/22 [History Last Taken Unknown] ibuprofen 200 mg tablet 800 mg PO QHS PRN Pain 05/22/22 [History Last Taken 1 Day Ago ~05/21/22] naproxen sodium 220 mg tablet (Aleve) 440 mg PO DAILY 05/22/22 [History Last Taken 05/22/22] Allergy/AdvReac Type Severity Reaction Status Date / Time amoxicillin AdvReac Upset Verified 05/22/22 13:43 Stomach Family History Mother No problems noted. Father CAD (coronary artery disease) Heart disease Myocardial infarction Surgical History S/P herniorrhaphy Social History household members: significant other housing: apartment Smoking Status: Current every day smoker tobacco type: cigarettes alcohol intake: current substance use type: does not use Physical Exam Narrative Well-developed nourished man who is sleeping comfortably, supine, breathing comfortably with heart rate 97 and SPO2 94% on room air. He is on Precedex drip 0.6 mcg, received 97 mg of phenobarbital p.o. and 2 mg of Ativan IV at 5 PM. I did not wake the patient for an exam, so the exam is limited at this time. HEENT: Mucous membranes moist Chest: Unlabored respirations, no cough, no audible wheeze in the room, good and symmetrical expansion Heart: Normal sinus rhythm on the monitor at 97 Abdomen: Nondistended nonobese Extremities: No clubbing cyanosis or edema Neuro, no tremor at this time, no evidence of twitching or seizures. Limited exam in order to allow patient to sleep and detox. Medical Records Data Attestation: I reviewed the patient's medical records Lab / Micro Data Result Diagrams: 05/22/22 13:50 05/22/22 13:50 Labs: Laboratory Results - last 24 hr 05/22/22 13:50: WBC 10.5, RBC 5.40, Hgb 18.2 H*, Hct 50.9, MCV 94.3 H, MCH 33.7 H, MCHC 35.8, RDW Std Deviation 49.1 H, RDW Coeff of [place] 14.2, Plt Count 167, MPV 9.6, Immature Gran % (Auto) 0.400, Neut % (Auto) 71.2 H, Lymph % (Auto) 20.6, [place] % (Auto) 7.3, Eos % (Auto) 0.0, Baso % (Auto) 0.5, Absolute Neuts ( auto) 7.5, Absolute Lymphs (auto) 2.17, Nucleated RBC % 0, Diff Path Review December05/22/22 13:50: Sodium 139, Potassium 4.2, Chloride 99, Carbon Dioxide 20.0 L, Anion Gap 20 H, BUN 20 H, Creatinine 0.99, Estim Creat Clear Calc 89.10, Est GFR (MDRD) Af Amer 101, Est GFR (MDRD) Non-Af 84, BUN/Creatinine Ratio 20.1 H, Glucose 101, Calcium 8.6, Total Bilirubin 0.80, AST 90 H, ALT 48, Alkaline Phosphatase 86, Total Protein 7.7, Albumin 4.0, Globulin 3.7, Albumin/Globulin Ratio 1.1, Lipase 279 05/22/22 13:50: Ethyl Alcohol 306.0 H*
[2022-05-22] MEDS: fluvoxaMINE Maleate 50 MG Tablet 100 MG PO (21:25)
[2022-05-22] MEDS: busPIRone 15 MG TABLET PO (21:31)
[2022-05-22] MEDS: Phenobarbital 32.4 MG Tablet 64.8 MG PO (21:32)
[2022-05-23] VITALS (20 sets, daily range): BP systolic 114–143; BP diastolic 68–87; PULSE 70–107; RESP 16–22; TEMP 36.6–36.9; O2SAT 94–98
[2022-05-23] MEDS: Ibuprofen 600 MG Tablet PO ×2 (00:51→20:20)
[2022-05-23] MEDS: Gabapentin 300 MG Capsule PO ×2 (00:52→17:10)
[2022-05-23] MEDS: Phenobarbital 32.4 MG Tablet 64.8 MG PO ×6 (01:25→20:18)
[2022-05-23] MEDS: Dexmedetomidine 1,000 mcg in 0.9% NS 240 mL 15.5 MCG CONT INF (01:27)
[2022-05-23] MEDS: 0.9% Normal Saline 1,000 ML 150 ML IV (02:06)
[2022-05-23] MEDS: LORazepam 2 MG/ML Syringe IV (02:11)
[2022-05-23 03:36] LABS: Absolute Lymphocyte Count 1.12 X10^3/uL (0.83-4.51); Absolute Neutrophil Count 4.7 X10^3/uL (2.0-7.7); Basophil# 0.02 X10^3/uL; Basophil% 0.3 % (0-1); Eosinophil# 0.01 X10^3/uL; Eosinophils% 0.2 % (0-5); Hematocrit 38.6 % (40-54); Hemoglobin 13.4 g/dL (13.0-16.5); Lymphocyte # 1.12 X10^3/ul (0.83-4.51); Lymphocyte % 17.5 % (19-41); Mean Corp Hgb Conc 34.7 g/dL (32-36); Mean Corpuscular Hgb 33.2 pg (27.0-32.0); Mean Corpuscular Volume 95.5 fL (80-94); Mean Platelet Vol. 9.6 fl (6.2-12.0); Monocyte# 0.55 X10^3/uL; Monocyte% 8.6 % (0-10); NRBC Flagged by Analyzer 0 % (0-5); Neutrophil # 4.69 X10^3/uL (2.7-7.7); Neutrophil % 73.1 % (47-70); Platelet Count 104 K/mm3 (150-450); RBC Distribution Width CV 13.8 % (11.6-14.6); RBC Distribution Width SD 48.8 fl (35.1-43.9); Red Blood Count 4.04 M/mm3 (4.6-6.2); White Blood Count 6.4 K/mm3 (4.4-11.0)
[2022-05-23 03:49] LABS: Anion Gap 7 (5-15); BUN 17 mg/dL (7-18); BUN/Creat Ratio 17.1 RATIO (10-20); Chloride 101 mmol/L (98-107); EST Glomerular Filtration Rate 84 mL/min (>60); Est Glom Filt Rate - Afr Amer 101 mL/min (>60); Estimated Creatinine Clearance 88.21 ml/min; Glucose 111 mg/dL (74-106); Potassium 3.9 mmol/L (3.5-5.1); Sodium Level 138 mmol/L (136-145)
[2022-05-23] MEDS: TITRATION PARAMETER CHANGE 1 EACH IV (05:00)
[2022-05-23] MEDS: Enoxaparin 40 MG/0.4 ML Syringe SC (05:39)
[2022-05-23] MEDS: hydrOXYzine PAM 25 MG Capsule 50 MG PO (05:39)
[2022-05-23] MEDS: busPIRone 15 MG TABLET PO ×3 (05:39→20:21)
[2022-05-23] MEDS: Acetaminophen 500 MG Tablet PO ×2 (05:39→17:10)
[2022-05-23] MEDS: amLODIPine 5 MG Tablet PO (09:38)
[2022-05-23] MEDS: fluvoxaMINE Maleate 50 MG Tablet 100 MG PO ×2 (09:38→20:20)
[2022-05-23] MEDS: Folic Acid 1 MG Tablet PO (09:38)
[2022-05-23] MEDS: Thiamine Hydrochloride 100 MG Tablet PO (09:38)
--- NOTE | 2022-05-23 11:36 | PCM.PN.INT ---
Assessment & Plan Assessment/Plan (1) Alcohol withdrawal: PLAN: Tolerating CIWA well, good level of sedation and control of DT's this AM Safe for transfer to the floor. ICU team will sign off for now. (2) Acute alcohol intoxication delirium with moderate or severe use disorder: PLAN: as above (3) Desire for detoxification: PLAN: as above agree with need for mandatory counseling and follow up. (4) Methamphetamine abuse: PLAN: detox as above. (5) Transaminitis: PLAN: supportive care, avoid hepatotoxins (tylenol) (6) DONTA (acute kidney injury): PLAN: Resume PO intake as tolerated (7) Tobacco use: PLAN: nicotine replacement therapy (patches) 21 mg daily, off at night. PLAN: Plan Management per primary team. Please call if additional CCM input is needed. Clinical visit time: 35 minutes, [id number]. Subjective Subjective Patient is sedated and comfortable on AM interdisciplinary rounds. He has no complaints. No delerium. Ready to transfer to floor. ICU will sign off. Objective Data Objective Data Vital Signs: Vital Signs Temp Pulse Resp BP Pulse Ox O2 Del Method O2 Flow Rate 36.6 C 96 18 136/69 H 96 Room Air 2 05/23/22 08:00 05/23/22 11:00 05/23/22 11:00 05/23/22 11:00 05/23/22 11:00 05/23/22 11:00 05/23/22 08:00 Oxygen Flow Rate (L/min) 2 Oxygen Delivery Method Room Air Weight: 90.7 kg Body Mass Index (BMI) 27.1 Intake & Output: Intake and Output for Last 24 Hours 05/21/22 05/22/22 05/23/22 23:59 23:59 23:59 Intake Total 1047.16 / 2757.16 4015.26 / 4015.26 Output Total 850 / 850 Balance 1047.16 / 2757.16 3165.26 / 3165.26 Lab / Micro Data Result Diagrams: 05/23/22 03:20 05/23/22 03:20 Labs: Laboratory Results - last 24 hr 05/22/22 13:50: WBC 10.5, RBC 5.40, Hgb 18.2 H*, Hct 50.9, MCV 94.3 H, MCH 33.7 H, MCHC 35.8, RDW Std Deviation 49.1 H, RDW Coeff of Guicho 14.2, Plt Count 167, MPV 9.6, Immature Gran % (Auto) 0.400, Neut % (Auto) 71.2 H, Lymph % (Auto) 20.6, [place] % (Auto) 7.3, Eos % (Auto) 0.0, Baso % (Auto) 0.5, Absolute Neuts (auto) 7.5, Absolute Lymphs (auto) 2.17, Nucleated RBC % 0, Diff Path Review December foll 05/22/22 13:50: Sodium 139, Potassium 4.2, Chloride 99, Carbon Dioxide 20.0 L, Anion Gap 20 H, BUN 20 H, Creatinine 0.99, Estim Creat Clear Calc 89.10, Est GFR (MDRD) Af Amer 101, Est GFR (MDRD) Non-Af 84, BUN/Creatinine Ratio 20.1 H, Glucose 101, Calcium 8.6, Total Bilirubin 0.80, AST 90 H, ALT 48, Alkaline Phosphatase 86, Total Protein 7.7, Albumin 4.0, Globulin 3.7, Albumin/Globulin Ratio 1.1, Lipase 279 05/22/22 13:50: Ethyl Alcohol 306.0 H* 05/23/22 03:20: WBC 6.4, RBC 4.04 L, Hgb 13.4, Hct 38.6 L, MCV 95.5 H, MCH 33.2 H, MCHC 34.7, RDW Std Deviation 48.8 H, RDW Coeff of Guicho 13.8, Plt Count 104 L, MPV 9.6, Immature Gran % (Auto) 0.300, Neut % (Auto) 73.1 H, Lymph % (Auto) 17.5 L, [place] % (Auto) 8.6, Eos % (Auto) 0.2, Baso % (Auto) 0.3, Absolute Neuts (auto) 4.7, Absolute Lymphs (auto) 1.12, Nucleated RBC % 0 05/23/22 03:20: Sodium 138, Potassium 3.9, Chloride 101, Carbon Dioxide 30.0, Anion Gap 7, BUN 17, Creatinine 1.00, Estim Creat Clear Calc 88.21, Est GFR (MDRD) Af Amer 101, Est GFR (MDRD) Non-Af 84, BUN/Creatinine Ratio 17.1, Glucose 111 H, Calcium 8.0 L
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
[2022-05-23] MEDS: LORazepam 2 MG/ML Syringe 1 MG IV (12:53)
[2022-05-23 13:27] LABS: Pathologist Review Reviewed
[2022-05-23 13:56] LABS: Bacteria 0 SEEN /hpf (None Seen); Mucous, Urine 0 SEEN /hpf (<or=2+)
[2022-05-23 14:02] LABS: Color, Urine Yellow (Yellow); Glucose, Dipstick 250 mg/dl (Normal); Ketone-Dipstick 50 mg/dl (Negative); Leukocyte Esterase-Dipstick Negative /ul (Negative); Nitrite-Dipstick Negative (Negative); Occult Blood-Urine 10 /ul (Negative); Protein-Dipstick 15 mg/dl (Negative); Specific Gravity, Urine 1.015 (1.002-1.030); Urine Bilirubin Dipstick Negative (Negative); Urine Clarity Sl. Cloudy (Clear); Urine Urobilinogen Normal (Normal)
[2022-05-23 14:08] LABS: Red Blood Cells-Urine 0-5 SEEN /hpf (0-5); Squamous Epithelial Cells - UA 0-5 SEEN /hpf (0-5); White Blood Cells 0-5 SEEN /hpf (0-5)
[2022-05-23 14:10] LABS: Amphetamine Urine VISTA NEGATIVE (<1000 ng/mL); Barbiturate Urine VISTA POSITIVE (< 200 ng/mL); Benzodiazepine Urine VISTA NEGATIVE (< 200 ng/mL); Cocaine Urine VISTA NEGATIVE (< 300 ng/mL); Ecstacy Urine VISTA NEGATIVE (< 500 ng/mL); Methadone Urine VISTA NEGATIVE (< 300 ng/mL); PCP Urine VISTA NEGATIVE (< 25 ng/mL); THC Urine VISTA NEGATIVE (< 50 ng/mL); Vista UDS pH Range 5
--- NOTE | 2022-05-23 15:42 | PN.HOSP_ITS ---
Subjective Subjective Patient was seen and examined today, he appeared somnolent this morning, his Precedex was stopped and he became slightly agitated later on in the morning but improved after Ativan administration. I feel the patient is stable to be transferred to [place] [id number] for further care. Objective Data Objective Data Vital Signs: Vital Signs Temp Pulse Resp BP Pulse Ox O2 Del Method O2 Flow Rate 98.1 F 97 18 133/80 H 97 Room Air 2 05/23/22 15:00 05/23/22 15:00 05/23/22 15:00 05/23/22 15:00 05/23/22 15:00 05/23/22 15:00 05/23/22 08:00 Oxygen Flow Rate (L/min) 2 Oxygen Delivery Method Room Air Weight: 90.7 kg Body Mass Index (BMI) 27.1 Intake & Output: Intake and Output for Last 24 Hours 05/21/22 05/22/22 05/23/22 23:59 23:59 23:59 Intake Total 1047.16 / 2757.16 4615.26 / 4615.26 Output Total 850 / 850 Balance 1047.16 / 2757.16 3765.26 / 3765.26 Lab / Micro Data Result Diagrams: 05/23/22 03:20 05/23/22 03:20 Labs: Laboratory Results - last 24 hr 05/22/22 13:50: Diff Path Review Reviewed 05/22/22 13:50: Ethyl Alcohol 306.0 H* 05/23/22 03:20: WBC 6.4, RBC 4.04 L, Hgb 13.4, Hct 38.6 L, MCV 95.5 H, MCH 33.2 H, MCHC 34.7, RDW Std Deviation 48.8 H, RDW Coeff of [place] 13.8, Plt Count 104 L, MPV 9.6, Immature Gran % (Auto) 0.300, Neut % (Auto) 73.1 H, Lymph % (Auto) 17.5 L, [place] % (Auto) 8.6, Eos % (Auto) 0.2, Baso % (Auto) 0.3, Absolute Neuts (auto) 4.7, Absolute Lymphs (auto) 1.12, Nucleated RBC % 0 05/23/22 03:20: Sodium 138, Potassium 3.9, Chloride 101, Carbon Dioxide 30.0, Anion Gap 7, BUN 17, Creatinine 1.00, Estim Creat Clear Calc 88.21, Est GFR (MDRD) Af Amer 101, Est GFR (MDRD) Non-Af 84, BUN/Creatinine Ratio 17.1, Glucose 111 H, Calcium 8.0 L 05/23/22 13:45: Urine Color Yellow, Urine Clarity Sl. Cloudy, Urine pH 6.0, Ur Specific [place] 1.015, Urine Protein 15 H, Urine Glucose (UA) 250 H, Urine Ketones 50 H, Urine Occult Blood 10 H, Urine Nitrite Negative, Urine Bilirubin Negative, Urine Urobilinogen Normal, Ur Leukocyte Esterase Negative, Urine RBC 0-5 SEEN, Urine WBC 0-5 SEEN, Ur Squamous Epith Cells 0-5 SEEN, Urine Bacteria 0 SEEN, Urine Mucus 0 SEEN 05/23/22 13:45: Urine Opiates Screen NEGATIVE, Urine Methadone Screen NEGATIVE, Ur Barbiturates Screen POSITIVE H, Ur Phencyclidine Scrn NEGATIVE, Ur Amphetamines Screen NEGATIVE, MDMA (Ecstasy) Screen NEGATIVE, U Benzodiazepines Scrn NEGATIVE, Urine Cocaine Screen NEGATIVE, U Cannabinoids Screen NEGATIVE, Ur Drug Screen Comment Physical Exam Const alert, oriented x3 and no apparent distress Constitutional Narrative: Patient appears her stated age, he appears mildly somnolent at the time of my examination General Appearance: cooperative and well developed Orientation / Consciousness: awake, oriented to person, oriented to place and oriented to time HEENT normocephalic, head/scalp atraumatic and moist oral mucous membranes Eyes PERRL, EOMs intact bilaterally and conjunctivae normal Neck supple, no JVD, thyroid normal and no carotid bruits General: trachea midline Resp normal respiratory effort, no retractions, no use of accessory muscles and clear to auscultation bilaterally Auscultation: Negative for rales, rhonchi or wheezes Cardio regular rate, regular rhythm, S1 normal heart sound, S2 normal heart sound, no murmurs, no rub and no gallops GI normal to inspection, nondistended, normoactive bowel sounds, soft to palpation, non-tender and non-distended Extremity no clubbing, cyanosis or edema Skin no rashes or lesions noted General Skin Exam: no breakdown Neuro oriented x3, CN's II-XII intact bilaterally, moves all extremities, no focal motor deficits and no sensory deficits noted Sensorium / Orientation: awake and alert Speech: speech normal Psych affect normal Assessment & Plan Assessment/Plan (1) Acute alcohol intoxication delirium with moderate or severe use disorder: PLAN: Plan 1. Acute alcohol withdrawal with mild DTs-patient is stable at this time for tr ansfer to [facility], CIWA scores will be monitored, patient will be kept on oral phenobarbital per withdrawal protocol. Patient will be seen by addiction social media specialist #2 chronic alcoholism-complicates care, management, recovery, and prognosis #3 history of polysubstance abuse-complicates care, management, recovery, and prognosis #4 chronic depression-patient is currently on antidepressants here in the hospital Charges/Coding Visit Charges Inpatient E&M: 79948 Subs Hosp L2
[2022-05-23] MEDS: 0.9% Saline Lock 10 ML Syringe IV (20:17)
[2022-05-23] MEDS: LORazepam 1 MG Tablet 2 MG PO (20:19)
[2022-05-24 01:09] VITALS: BP 153/89; PULSE 108; RESP 18; TEMP 36.4; O2SAT 96
[2022-05-24] MEDS: Phenobarbital 32.4 MG Tablet 64.8 MG PO ×3 (01:11→09:31)
[2022-05-24] MEDS: LORazepam 1 MG Tablet 2 MG PO ×2 (01:13→09:44)
[2022-05-24] MEDS: traZODone 100 MG Tablet PO (01:13)
[2022-05-24] MEDS: busPIRone 15 MG TABLET PO (05:50)
[2022-05-24 05:52] VITALS: BP 131/89; PULSE 89; RESP 16; TEMP 36.3; O2SAT 98
[2022-05-24 09:27] VITALS: BP 167/96; PULSE 120; RESP 18; TEMP 37.1; O2SAT 97
[2022-05-24] MEDS: amLODIPine 5 MG Tablet PO (09:30)
[2022-05-24] MEDS: Folic Acid 1 MG Tablet PO (09:31)
[2022-05-24] MEDS: Thiamine Hydrochloride 100 MG Tablet PO (09:31)
[2022-05-24] MEDS: fluvoxaMINE Maleate 50 MG Tablet 100 MG PO (09:32)
[2022-05-24 09:45] VITALS: PULSE 120
--- NOTE | 2022-05-24 10:46 | NURSING ---
pt wanting to leave. pt signed ama papers. on floor and aware that pt leaving ama
--- NOTE | 2022-05-24 11:07 | ADDICTION ---
This worker met with pt to complete ASAM, MSE, AUDIT, DUTIT assessments. Pt participated in assessments, however he refused DC planning.
--- NOTE | 2022-05-24 11:09 | PCM.DC ---
Discharge Instructions Diet Discharge Diet: No restrictions Activity Discharge Activity: Return to Normal Activity Weight Bearing Status: Full weight bearing Follow Up Care Test Results: Test results from this visit will be discussed in further detail at your follow-up appointment, if applicable. Discharge Plan Admission Admit Date/Time: 05/22/22 14:28 Primary Reason for Your Visit: alcohol detox Attending Provider: Esvin Pinzon Primary Care Provider: Dagoberto Mari Consulting Providers: Dagoberto Garirson ; Jc Alvarado ; Onesimo Erickson ; Dariusz Jamison ; Travis Chan ; Ankita Patterson RADIATION PROTECTION ENGINEER Discharge Orders/Prescriptions Prescriptions: New amlodipine 5 mg Tablet 5 mg PO DAILY Qty: 30 0RF phenobarbital 32.4 mg tablet 32.4 mg PO TID Qty: 12 0RF Rx Instructions: do not drink alcohol while taking this medication Continued trazodone 150 MG tablet 300 mg PO QHS PRN (Reason: Sleep) 30 Days Qty: 60 0RF fluvoxamine 100 MG tablet 100 mg PO BID 30 Days Qty: 60 4RF naproxen sodium [Aleve] 220 mg Tablet 440 mg PO DAILY ibuprofen 200 mg Tablet 800 mg PO QHS PRN (Reason: Pain) buspirone 15 mg tablet 15 mg PO TID Label Comments: TAKE 1 TABLET BY MOUTH THREE TIMES DAILY gabapentin 300 MG capsule 300 mg PO QHS Referrals / Follow Up: Dagoberto Mari MD [Primary Care Provider] - Within 2 Weeks Disposition Disposition (needs filled in before D/C Order can be placed): Home, Self Care
--- NOTE | 2022-05-24 11:18 | DS.PCM_ITS ---
Providers Date of Admission: 05/22/22 Date of Discharge: 05/24/22 Primary Care Physician: Dr. Dagoberto Mari MD Consultations 05/22/22 18:33 Consult: Fruit Cutter / Pulmonary Medicine Routine Consulting Provider: [facility] Reason for Consult: alcohol withdrawal with severe agitation EMERGENT Consult: No MD Notified: Yes Date Notified: 05/22/22 Time Notified: 18:30 Method of Notification: Verbal Reason For Visit: ALCOHOL WITHDRAWAL Diagnosis Discharge Diagnosis (1) Acute alcohol intoxication delirium with moderate or severe use disorder: Status: Acute Code(s): F10.221 - Alcohol dependence with intoxication delirium Plan 1. Acute alcohol withdrawal with mild DTs-patient is stable at this time for transfer to [facility], CIWA scores will be monitored, patient will be kept on oral phenobarbital per withdrawal protocol. Patient will be seen by addiction social services assistant #2 chronic alcoholism-complicates care, management, recovery, and prognosis #3 history of polysubstance abuse-complicates care, management, recovery, and prognosis #4 chronic depression-patient is currently on antidepressants here in the hospital #5 essential hypertension Medications at Discharge Home Medications fluvoxamine 100 mg tablet 100 mg PO BID 30 days #60 tabs 05/11/18 trazodone 150 mg tablet 300 mg PO QHS PRN Sleep 30 days #60 tabs 05/11/18 buspirone 15 mg tablet 15 mg PO TID 05/22/22 gabapentin 300 mg capsule 300 mg PO QHS sleep 05/22/22 ibuprofen 200 mg tablet 800 mg PO QHS PRN Pain 05/22/22 naproxen sodium 220 mg tablet (Aleve) 440 mg PO DAILY 05/22/22 amlodipine 5 mg tablet 5 mg PO DAILY #30 tabs 05/24/22 phenobarbital 32.4 mg tablet 32.4 mg PO TID #12 tabs 05/24/22 Hospital Course Operations None Procedures None Summary of Care Provided Minutes Spent on Discharge: 32 Hospital Course: This 52-year-old white male was seen in the emergency room at [facility] requesting services for alcohol detox. Patient had been admitted to this facility many times for similar complaints. Labs obtained at the time of admission noted the patient have an elevated alcohol level, he was initially admitted to a [facility] floor for detox services using the alcohol detox order set, despite administration of phenobarbital however, patient became more agitated and diaphoretic with elevated blood pressure. He was transferred into the ICU overnight and placed on a Precedex drip, this was weaned off the patient the next day without incident. Patient was transferred back out to [place] [address] and seen in consultation by addiction social services assistant, patient refused any follow-up care and voiced his intent to sign out AMA. On 05/24/2022, patient was seen and examined: On examination he appeared alert and in no distress. Vital signs as documented. Skin warm and dry and without overt rashes. Neck without JVD, neck was supple, trachea midline, thyroid was normal. Lungs clear bilaterally, normal air movement was noted. Heart exam notable for regular rhythm, normal sounds and absence of murmurs, rubs or gallops. Abdomen unremarkable and without evidence of organomegaly, masses, or abdominal aortic enlargement. Bowel sounds are present, abdomen is not distended. Extremities nonedematous, no cyanosis was noted, no clubbing was noted. Neuro: Cranial nerves II through XII are grossly intact, no focal motor deficits were noted, sensation to light touch and pinprick intact, motor exam 5/5 throughout. Psych: Patient is alert and oriented x3, he does not appear anxious or depressed, he does not appear agitated. On 05/24/2022, patient was discharged AGAINST MEDICAL ADVICE, this examiner made the decision to call in to his pharmacy a prescription for phenobarbital for continued alcohol withdrawal, patient was urged to follow-up as an outpatient with detox services but again in talking with addiction social services assistant, patient refused any follow-up care. Weight / BMI Weight Weight: 90.7 kg Body Mass Index (BMI) 27.1 ABG / Lab / Microbiology Data Result Diagrams: 05/23/22 03:20 05/23/22 03:20 Laboratory: Laboratory Results - last 24 hr 05/22/22 13:50: Diff Path Review Reviewed 05/23/22 13:45: Urine Color Yellow, Urine Clarity Sl. Cloudy, Urine pH 6.0, Ur Specific [place] 1.015, Urine Protein 15 H, Urine Glucose (UA) 250 H, Urine Ketones 50 H, Urine Occult Blood 10 H, Urine Nitrite Negative, Urine Bilirubin Negative, Urine Urobilinogen Normal, Ur Leukocyte Esterase Negative, Urine RBC 0-5 SEEN, Urine WBC 0-5 SEEN, Ur Squamous Epith Cells 0-5 SEEN, Urine Bacteria 0 SEEN, Urine Mucus 0 SEEN 05/23/22 13:45: Urine Opiates Screen NEGATIVE, Urine Methadone Screen NEGATIVE, Ur Barbiturates Screen POSITIVE H, Ur Phencyclidine Scrn NEGATIVE, Ur Amphetamines Screen NEGATIVE, MDMA (Ecstasy) Screen NEGATIVE, U Benzodiazepines Scrn NEGATIVE, Urine Cocaine Screen NEGATIVE, U Cannabinoids Screen NEGATIVE, Ur Drug Screen Comment D/C Instructions Discharge Diet: No restrictions Weight Bearing Status: Full weight bearing Meaningful Use Info Meaningful Use Diagnoses (Choose all that apply): None applicable Discharge Plan Admission Admit Date/Time: 05/22/22 14:28 Primary Reason for Your Visit: alcohol detox Attending Provider: Esvin Pinzon Primary Care Provider: Dagoberto Mari Consulting Providers: Dagoberto Garrison ; Jc Alvarado ; Onesimo Erickson ; Dariusz Jamison ; Travis Chan ; Ankita Patterson ECHOCARDIOGRAPH TECHNICIAN Discharge Orders/Prescriptions Prescriptions: New amlodipine 5 mg Tablet 5 mg PO DAILY Qty: 30 0RF phenobarbital 32.4 mg tablet 32.4 mg PO TID Qty: 12 0RF Rx Instructions: do not drink alcohol while taking this medication Continued trazodone 150 MG tablet 300 mg PO QHS PRN (Reason: Sleep) 30 Days Qty: 60 0RF fluvoxamine 100 MG tablet 100 mg PO BID 30 Days Qty: 60 4RF naproxen sodium [Aleve] 220 mg Tablet 440 mg PO DAILY ibuprofen 200 mg Tablet 800 mg PO QHS PRN (Reason: Pain) buspirone 15 mg tablet 15 mg PO TID Label Comments: TAKE 1 TABLET BY MOUTH THREE TIMES DAILY gabapentin 300 MG capsule 300 mg PO QHS Referrals / Follow Up: Dagoberto Mari MD [Primary Care Provider] - Within 2 Weeks Disposition Disposition (needs filled in before D/C Order can be placed): Against Medical Advice Charges/Coding Visit Charges Inpatient E&M: 01070 Disch Hosp
== END 2022-05-24 13:35 | disposition left against medical advice (07) | DRG 894 ==
LOC: ED 14:11 → PCU 14:48 → ICU 18:34 → MS3 05-23 17:05
PROVIDERS: Internal Medicine; Emergency Provider Emergency Medicine; PCP Family Medicine; Visit Provider Internal Medicine
DX: F10.221 Alcohol dependence with intoxication delirium (principal); F15.10 Other stimulant abuse, uncomplicated; F10.231 Alcohol dependence with withdrawal delirium; I10 Essential (primary) hypertension; F17.210 Nicotine dependence, cigarettes, uncomplicated; F41.9 Anxiety disorder, unspecified; Z79.899 Other long term (current) drug therapy; Y90.8 Blood alcohol level of 240 mg/100 ml or more
CPT/HCPCS: 80048; 80053; 80307; 81001; 82077; 83690; 85025; 99285; 99406; J7030; J7050; A4216

== ENCOUNTER 2022-07-20 23:12 | Emergency (ER) | payer BC, SELFPAY ==
--- NOTE | 2022-07-20 23:37 | ED.RN ---
PT REFUSED TO BE SEEN AND ANNA Gonzalez CALLED PT'S S.O. TO PICK PT UP.
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
== END 2022-07-20 23:45 | disposition left against medical advice (07) ==
LOC: ED 23:57
PROVIDERS: PCP Family Medicine
DX: Z53.21 Procedure and treatment not carried out due to patient leaving prior to being seen by health care provider (principal)

== ENCOUNTER 2022-08-04 20:02 | Inpatient (IN) | payer SELFPAY ==
[2022-08-04 20:03] VITALS: BP 150/90; PULSE 99; RESP 22; TEMP 36.9; O2SAT 96; BMI 27.1
--- NOTE | 2022-08-04 20:21 | EKG12_ITS ---
Test Reason : ETOH Blood Pressure : / mmHG Vent. Rate : 083 BPM Atrial Rate : 083 BPM P-R Int : 132 ms QRS Dur : 094 ms QT Int : 378 ms P-R-T Axes : 022 -33 027 degrees QTc Int : 444 ms Normal sinus rhythm Left axis deviation Abnormal ECG Confirmed by DUONG LAKE, AVRIL ([id number]), copy editor ELVI MORA ([id number]) on 08/07/2022 11:02:39 AM Referred By: Confirmed By:AVRIL WATTERS MD
[2022-08-04] MEDS: LORazepam 2 MG/ML Syringe IV (20:33)
[2022-08-04] MEDS: 0.9% Normal Saline 1,000 ML 1000 ML IV (20:33)
[2022-08-04 20:35] LABS: Absolute Lymphocyte Count 1.41 X10^3/uL (0.83-4.51); Absolute Neutrophil Count 3.6 X10^3/uL (2.0-7.7); Basophil# 0.05 X10^3/uL; Basophil% 0.9 % (0-1); Eosinophil# 0.02 X10^3/uL; Eosinophils% 0.4 % (0-5); Hematocrit 45.6 % (40-54); Hemoglobin 16.4 g/dL (13.0-16.5); Lymphocyte # 1.41 X10^3/ul (0.83-4.51); Lymphocyte % 24.8 % (19-41); Mean Corpuscular Hgb 33.1 pg (27.0-32.0); Mean Corpuscular Volume 91.9 fL (80-94); Mean Platelet Vol. 8.9 fl (6.2-12.0); Monocyte# 0.56 X10^3/uL; Monocyte% 9.8 % (0-10); NRBC Flagged by Analyzer 0 % (0-5); Neutrophil # 3.62 X10^3/uL (2.7-7.7); Neutrophil % 63.6 % (47-70); Platelet Count 126 K/mm3 (150-450); RBC Distribution Width CV 13.1 % (11.6-14.6); Red Blood Count 4.96 M/mm3 (4.6-6.2); White Blood Count 5.7 K/mm3 (4.4-11.0)
[2022-08-04 20:47] LABS: AST(SGOT) 198 U/L (15-37); Alanine Aminotransfer ALT/SGPT 123 U/L (16-61); Alkaline Phosphatase 110 U/L (45-117); Anion Gap 11 (5-15); BUN 12 mg/dL (7-18); BUN/Creat Ratio 12.7 RATIO (10-20); Calcium,Total 8.3 mg/dL (8.5-10.1); Chloride 100 mmol/L (98-107); Creatinine, Serum 0.95 mg/dL (0.70-1.30); EST Glomerular Filtration Rate 88 mL/min (>60); Est Glom Filt Rate - Afr Amer 107 mL/min (>60); Estimated Creatinine Clearance 92.85 ml/min; Globulin 3.9 g/dL (2.2-4.2); Glucose 98 mg/dL (74-106); Potassium 3.7 mmol/L (3.5-5.1); Protein, Total 7.9 g/dL (6.4-8.2); Sodium Level 138 mmol/L (136-145)
[2022-08-04 20:57] LABS: International Normalized Ratio 0.9; Prothrombin Time (Protime)PT. 11.9 SECONDS (11.7-14.9)
--- NOTE | 2022-08-04 21:01 | HP.PCM.HOS_ITS ---
HPI - General General Date of Admission: 08/04/22 Date of Service: 08/04/22 Chief Complaint: Desire for detoxification HPI Narrative ALTHEA TIERNEY, is a 52 M with a significant history of anxiety, depression, tobacco abuse and ethanol abuse who presents to the emergency department with alcohol detoxification. Patient reports that he has been drinking since age 17. He drinks 1/5 of whiskey per day. He reported last time he drank was a night before presentation but he is unsure about it. Indeed he is unsure whether he drank alcohol on the day of presentation or not. She reports some tremulousness on day of presentation that was aborted with Ativan at the emergency department. [facility] Medical History (Updated 08/04/22 @ 22:01 by Beckie Reynolds) DONTA (acute kidney injury) Anxiety Depression Desire for detoxification ETOH abuse History of foot fracture HTN (hypertension) Jaundice due to hepatitis Methamphetamine abuse OCD (obsessive compulsive disorder) Smoker Tobacco use Transaminitis Home Medications trazodone 150 mg tablet 300 mg PO QHS PRN Sleep 30 days #60 tabs 05/11/18 [Rx Last Taken 3 Days Ago ~05/19/22] buspirone 15 mg tablet 15 mg PO TID depression 05/22/22 [History Last Taken Unknown] gabapentin 300 mg capsule 300 mg PO QHS sleep 05/22/22 [History Last Taken Unknown] fluvoxamine 100 mg tablet 150 mg PO BID OCD 08/04/22 [History Last Taken Unknown] Allergy/AdvReac Type Severity Reaction Status Date / Time amoxicillin AdvReac Upset Verified 08/04/22 21:52 Stomach Family History Mother No problems noted. Father CAD (coronary artery disease) Heart disease Myocardial infarction Surgical History S/P herniorrhaphy Social History household members: significant other housing: apartment Smoking Status: Current every day smoker tobacco type: cigarettes alcohol intake: current substance use type: does not use ROS ROS Narrative Pertinent positives and pertinent negatives as noted in HPI. All other systems were reviewed and are negative Vital Signs Vital Signs Vital Signs: 08/04/22 20:03 Temperature 98.5 F Temperature Source Temporal Pulse Rate 99 Respiratory Rate 22 H Blood Pressure 150/90 H Blood Pressure Mean 110 Pulse Ox 96 Oxygen Delivery Method Room Air Weight Weight: 86 kg Body Mass Index (BMI) 27.1 Physical Exam Narrative Physical exam: General: Well-nourished, well-developed. Head: Normocephalic, atraumatic, no tenderness Eyes: Vision is grossly intact. EOMI ENT, no trauma, moist mucous membranes, no rhinorrhea. Poor dentition. Neck: Nontender, No thyromegaly. CVS: Regular rate and rhythm. S1-S2 present. No murmur, gallop or rub. Respiratory : clear to auscultation bilaterally, chest wall nontender, no wheezing Abdomen: Soft, nontender, nondistended, normal bowel sounds, no masses : Deferred Back: Nontender, no CVA tenderness Extremities: Nontender full range of motion, no trauma Skin: Normal color, no trauma, abrasions Neuro: Alert, oriented, cranial nerves II through XII grossly intact. Psychiatry: Normal mood. Normal affect. Not depressed. Not anxious. Results Lab / Micro Data Result Diagrams: 08/04/22 20:27 08/04/22 20:27 Labs: Laboratory Results - last 24 hr 08/04/22 20:27: WBC 5.7, RBC 4.96, Hgb 16.4, Hct 45.6, MCV 91.9, MCH 33.1 H, MCHC 36.0, RDW Std Deviation 43.0, RDW Coeff of [place] 13.1, Plt Count 126 L, MPV 8.9, Immature Gran % (Auto) 0.500, Neut % (Auto) 63.6, Lymph % (Auto) 24.8, [place] % (Auto) 9.8, Eos % (Auto) 0.4, Baso % (Auto) 0.9, Absolute Neuts (auto) 3.6, Absolute Lymphs (auto) 1.41, Nucleated RBC % 0 08/04/22 20:: PT 11.9, INR 0.9 08/04/22 20:: Sodium 138, Potassium 3.7, Chloride 100, Carbon Dioxide 27.0, Anion Gap 11, BUN 12, Creatinine 0.95, Estim Creat Clear Calc 92.85, Est GFR (MDRD) Af Amer 107, Est GFR (MDRD) Non-Af 88, BUN/Creatinine Ratio 12.7, Glucose 98, Calcium 8.3 L, Total Bilirubin 0.70, AST 198 H, ALT 123 H, Alkaline Phos phatase 110, Total Protein 7.9, Albumin 4.0, Globulin 3.9, Albumin/Globulin Ratio 1.0 Assessment & Plan Assessment/Plan (1) Desire for detoxification: (2) Elevated blood pressure reading: PLAN: Plan Alcohol dependence and desire for detoxification Patient will be started on phenobarbital and other adjunctive medications: Gabapentin as needed; dicyclomine as needed; Vistaril as needed; Imodium as needed; Zofran as needed; scheduled thiamine; and schedule folic acid. Home trazodone continued Monitor CIWA score Records reviewed the patient was at hospital on 05/22/2022 and discharged on 05/24/2022. On that admission patient was initially admitted to [facility] but transferred to the intensive care unit for Precedex. Tobacco abuse Counseled Nicotine patch declined. Elevated blood pressure the diagnosis of hypertension Likely secondary to alcoholism. Trend blood pressures. Elevated liver enzymes AST on presentation was 198. ALT on presentation was 123 Chronic. Like secondary to alcoholism. DVT prophylaxis Low risk Encourage to ambulate Charges/Coding Visit Charges Inpatient E&M: 09985 Init Hosp L2
[2022-08-04 21:27] VITALS: BP 133/90; PULSE 98; RESP 18; TEMP 36.6; O2SAT 99
--- NOTE | 2022-08-04 21:35 | EX.ED.DYSGE1 ---
HPI History of Present Illness Chief Complaint: ETOH Intox Informant: patient Narrative Narrative: Patient presents requesting alcohol detox. He states he last drank a couple hours ago. He drinks quite heavily. He drinks approximately fifth of whiskey a day. This is 80 proof. If he does not drink he gets shakes. He has had seizures before. His last admission was back the end of April. He states occasionally he vomits but he is not doing any significant vomiting now. No blood in vomitus. No blood or black stool. He denies fevers or chills. He denies any injury but does state he falls not uncommonly. He is not having headache. [facility] Medical History DONTA (acute kidney injury) Anxiety Depression Desire for detoxification ETOH abuse History of foot fracture HTN (hypertension) Jaundice due to hepatitis Methamphetamine abuse Smoker Tobacco use Transaminitis Home Medications trazodone 150 mg tablet 300 mg PO QHS PRN Sleep 30 days #60 tabs 05/11/18 [Rx Last Taken 3 Days Ago ~05/19/22] buspirone 15 mg tablet 15 mg PO TID 05/22/22 [History Last Taken Unknown] gabapentin 300 mg capsule 300 mg PO QHS sleep 05/22/22 [History Last Taken Unknown] fluvoxamine 100 mg tablet 150 mg PO BID 08/04/22 [History Last Taken Unknown] Allergy/AdvReac Type Severity Reaction Status Date / Time amoxicillin AdvReac Upset Verified 05/22/22 13:43 Stomach Family History Mother No problems noted. Father CAD (coronary artery disease) Heart disease Myocardial infarction Surgical History S/P herniorrhaphy Social History household members: significant other housing: apartment Smoking Status: Current every day smoker tobacco type: cigarettes alcohol intake: current substance use type: does not use ROS ROS ED Constitutional Constitutional ED: Denies chills or fever(s) ENT ENT ED: Denies rhinorrhea or sore throat Cardiovascular Cardiovascular: Denies chest pain or palpitations Respiratory/Chest Respiratory/Chest: Denies cough or dyspnea Gastrointestinal Gastrointestinal: Reports vomiting and other Details: Patient states is not uncommon for him to vomit during the day or in the morning. But this is chronic and unchanged ; Denies abdominal pain, diarrhea, melena or nausea Genitourinary Genitourinary ED: Denies hematuria Musculoskeletal Musculoskeletal: Denies myalgias Integumentary Denies rash Neurologic Neurologic: Denies headache(s) Psychiatric Psychiatric: Reports anxiety; Denies suicidal ideation Endocrine Endocrinology: Denies polyuria Hematologic/Lymphatic Hematologic/Lymphatic: Denies anemia Allergic/Immunologic Allergic/Immunologic ED: Denies urticaria EXAM Physical Exam Const Vital Signs: 08/04/22 20:03 Temperature 98.5 F Temperature Source Temporal Pulse Rate 99 Respiratory Rate 22 H Blood Pressure 150/90 H Blood Pressure Mean 110 Pulse Ox 96 Oxygen Delivery Method Room Air Positive well nourished and well developed General Appearance ED: well developed and NAD; Negative for cyanotic or diaphoretic HEENT Reports moist mucous membranes Eyes General Eye ED: Negative for scleral icterus Neck no lymphadenopathy Chest Wall Chest Narrative: There is 1 small area contusion toward his left upper chest below the clavicle. But no bony tenderness. No subcu air. Resp normal respiratory effort and clear to auscultation bilaterally Cardio regular rate, regular rhythm and no murmurs GI normal to inspection, nondistended, normoactive bowel sounds and non-distended Back/Spine no CVA tenderness Extremity Extremity Narrative: Few small contusions. General Extremety ED: Negative for edema or tenderness General Extremity: Negative for edema Neuro oriented x3 Neuro Narrative: When I went in the room patient was just wearing a blanket. He he does look intoxicated. At first I was concerned that he might be confused. But he is able to tell me his medications and these match the med list. He knows he is in [facility] emergency department. He knows the year the month. He states he was not sure of the date but guessed it was the nin. He knew Sb Debbiejose was the president and all his answers very easily. No sign of acute delirium. Although I think he is at risk for this. Sensorium / Orientation: alert Psych mental status grossly normal Skin no rashes or lesions noted Skin Narrative: Few small contusions MDM MDM MDM Narrative Medical decision making narrative: Blood work showed normal CBC. He had minimally low platelets is likely due to chronic alcohol use. INR was normal. Electrolytes were normal. Liver function test showed mild elevations of AST and ALT consistent with his alcohol use. I did give the patient some fluids. I gave him some Ativan. I discussed case with hospitalist. It sounds like this patient got ill when he was last admitted and was even on a Precedex drip. But at this point he is alert and oriented x3. He will go to the floor to start. Certainly if he worsens, his level of care may need to be increased. Lab Data Attestation: I reviewed the patient's lab results. Labs: Laboratory Results - last 24 hr 08/04/22 08/04/22 08/04/22 20:27 20:27 20:27 WBC 5.7 RBC 4.96 Hgb 16.4 Hct 45.6 MCV 91.9 MCH 33.1 H MCHC 36.0 RDW Std Deviation 43.0 RDW Coeff of [place] 13.1 Plt Count 126 L MPV 8.9 Immature Gran % (Auto) 0.500 Neut % (Auto) 63.6 Lymph % (Auto) 24.8 [place] % (Auto) 9.8 Eos % (Auto) 0.4 Baso % (Auto) 0.9 Absolute Neuts (auto) 3.6 Absolute Lymphs (auto) 1.41 Nucleated RBC % 0 PT 11.9 INR 0.9 Sodium 138 Potassium 3.7 Chloride 100 Carbon Dioxide 27.0 Anion Gap 11 BUN 12 Creatinine 0.95 Estim Creat Clear Calc 92.85 Est GFR (MDRD) Af Amer 107 Est GFR (MDRD) Non-Af 88 BUN/Creatinine Ratio 12.7 Glucose 98 Calcium 8.3 L Total Bilirubin 0.70 AST 198 H ALT 123 H Alkaline Phosphatase 110 Total Protein 7.9 Albumin 4.0 Globulin 3.9 Albumin/Globulin Ratio 1.0 Discharge Plan Triage Chief Complaint: ETOH Intox ED Provider: Saw Chase Dx/Rx/DC Orders Clinical Impression: Alcohol withdrawal, Alcohol abuse, Admitted to alcohol detoxification center Primary Care Provider: Dagoberto Mari Disposition Disposition: Acute Care Hospital [facility]
[2022-08-04 21:50] VITALS: BP 142/83; PULSE 100; RESP 16; TEMP 36.5; O2SAT 100
[2022-08-04 21:55] VITALS: BMI 26.8
[2022-08-04] MEDS: busPIRone 15 MG TABLET PO (22:32)
[2022-08-04] MEDS: fluvoxaMINE Maleate 50 MG Tablet 150 MG PO (22:32)
[2022-08-04] MEDS: Gabapentin 300 MG Capsule PO (22:33)
[2022-08-04] MEDS: Phenobarbital 32.4 MG Tablet PO (22:33)
[2022-08-04 22:40] VITALS: PULSE 116; RESP 18; O2SAT 98
[2022-08-05] MEDS: 0.9% Saline Lock 10 ML Syringe IV (00:23)
[2022-08-05] MEDS: traZODone 100 MG Tablet 300 MG PO ×2 (00:23→23:11)
[2022-08-05] MEDS: hydrOXYzine PAM 25 MG Capsule 50 MG PO ×4 (00:23→22:06)
[2022-08-05 01:27] VITALS: BP 142/78; PULSE 125; RESP 18; TEMP 36.5; O2SAT 92
[2022-08-05] MEDS: Phenobarbital 32.4 MG Tablet PO ×6 (01:31→21:58)
[2022-08-05 06:03] VITALS: BP 126/57; PULSE 106; RESP 18; TEMP 36.9; O2SAT 96
[2022-08-05] MEDS: busPIRone 15 MG TABLET PO ×3 (06:07→21:59)
[2022-08-05 08:26] VITALS: BP 132/72; PULSE 102; RESP 16; TEMP 36.8; O2SAT 94
[2022-08-05] MEDS: Gabapentin 300 MG Capsule PO ×2 (08:40→21:59)
[2022-08-05] MEDS: Ensure Plus High Protein 120 ML LIQUID PO ×3 (08:40→17:55)
[2022-08-05] MEDS: Thiamine Hydrochloride 100 MG Tablet PO (08:41)
[2022-08-05] MEDS: Folic Acid 1 MG Tablet PO (08:41)
[2022-08-05] MEDS: fluvoxaMINE Maleate 50 MG Tablet 150 MG PO ×2 (10:13→21:59)
[2022-08-05] MEDS: Loperamide 2 MG Capsule PO (10:20)
--- NOTE | 2022-08-05 10:54 | CASEMGMT ---
Social Work SW informed by Donna Lovell, Stain Dipper, that pt believes pt has no medical insurance and needs Medicaid adelina. Pt is listed on bed roster to have [employer] insurance. SW attempted to verify info with patient financial services but there was no answer. SW took medicaid application to pt. Informed to fill out to the best of pt ability and return application to nurse when finished. SW to fax application to [employer] when pt returns form. Pt declined other licensed social worker needs/resources. AL Motley
--- NOTE | 2022-08-05 11:52 | ADDICTION ---
This flex o writer operator met with PT to conduct ASAM, MSE, AUDIT, DUDIT assessments and to plan for d/c. PT A+Ox4 and participated actively. All assessments completed and placed in PT's chart. PT plans to f/u with residential treatment services, however he currently does not have any insurance. This worker asked a child welfare caseworker to help patient fill out his medicaid form due to his shakiness from withdrawal. PT did not indicate a need for transportation post d/c from [facility].
[2022-08-05 14:04] VITALS: BP 125/57; PULSE 85; RESP 16; TEMP 36.9; O2SAT 98
--- NOTE | 2022-08-05 15:05 | PN.HOSP_ITS ---
Subjective Subjective Patient seen and examined. He asked for IVF. He denied any fever, chills, cough, chest pain, palpitations, dizziness, nausea, vomiting or diarrhea. He is still tremulous in his UEs. REview of systems is otherwise negative. Objective Data Objective Data Vital Signs: Vital Signs Temp Pulse Resp BP Pulse Ox O2 Del Method O2 Flow Rate 98.4 F 85 16 125/57 H 98 Room Air 2 08/05/22 14:04 08/05/22 14:04 08/05/22 14:04 08/05/22 14:04 08/05/22 14:04 08/05/22 14:04 08/04/22 21:50 Oxygen Flow Rate (L/min) 2 Oxygen Delivery Method Room Air Weight: 187 lb 2.759 oz Body Mass Index (BMI) 26.8 Intake & Output: Intake and Output for Last 24 Hours 08/03/22 08/04/22 08/05/22 23:59 23:59 23:59 Intake Total 1000 / 1800 1600 / 1600 Balance 1000 / 1800 1600 / 1600 Lab / Micro Data Result Diagrams: 08/04/22 20:27 08/04/22 20:27 Labs: Laboratory Results - last 24 hr 08/04/22 20:27: WBC 5.7, RBC 4.96, Hgb 16.4, Hct 45.6, MCV 91.9, MCH 33.1 H, MCHC 36.0, RDW Std Deviation 43.0, RDW Coeff of [place] 13.1, Plt Count 126 L, MPV 8.9, Immature Gran % (Auto) 0.500, Neut % (Auto) 63.6, Lymph % (Auto) 24.8, [place] % (Auto) 9.8, Eos % (Auto) 0.4, Baso % (Auto) 0.9, Absolute Neuts (auto) 3.6, Absolute Lymphs (auto) 1.41, Nucleated RBC % 0 08/04/22 20:27: PT 11.9, INR 0.9 08/04/22 20:27: Sodium 138, Potassium 3.7, Chloride 100, Carbon Dioxide 27.0, Anion Gap 11, BUN 12, Creatinine 0.95, Estim Creat Clear Calc 92.85, Est GFR (MDRD) Af Amer 107, Est GFR (MDRD) Non-Af 88, BUN/Creatinine Ratio 12.7, Glucose 98, Calcium 8.3 L, Total Bilirubin 0.70, AST 198 H, ALT 123 H, Alkaline Phosphatase 110, Total Protein 7.9, Albumin 4.0, Globulin 3.9, Albumin/Globulin Ratio 1.0 08/04/22 20:27: Ethyl Alcohol 352.0 H* Physical Exam Const alert and oriented x3 Constitutional Narrative: anxious HEENT head/scalp atraumatic, moist oral mucous membranes and oropharynx normal Head and Scalp: normocephalic Mouth: oral and palatal mucosa normal Eyes PERRL, EOMs intact bilaterally and conjunctivae normal Neck no lymphadenopathy and supple Resp normal respiratory effort, no retractions, no use of accessory muscles and clear to auscultation bilaterally Cardio regular rate, regular rhythm, S1 normal heart sound, S2 normal heart sound and no murmurs GI normal to inspection, nondistended, normoactive bowel sounds, soft to palpation, non-tender and non-distended Extremity normal to inspection, full ROM and no clubbing, cyanosis or edema Neuro oriented x3, CN's II-XII intact bilaterally, moves all extremities and no focal motor deficits Neuro Narrative: tremors of UEs. Sensorium / Orientation: awake and alert Motor Exam: strength 5/5 throughout Psych Psych Narrative: anxious Assessment & Plan Assessment/Plan (1) Alcohol withdrawal: PLAN: Plan #Acute alcohol withdrawal * on alcohol withdrawal with phenobarbital * monitor CIWA score * on supportive meds for symptomatic relief * on thiamine, folic acid and multivites * #Elevated blood pressure * likely due to alcohol abuse * BP has improved * #Elevated liver enzymes * likely due to chronic alcohol abuse * will trend #Thrombocytopenia * platelets are 126. Likely due to alcohol abuse * chronic. Will trend * DVT prophylaxis: low risk. Encourage to ambulate Charges/Coding Visit Charges Inpatient E&M: 54979 Subs Hosp L3
[2022-08-05 17:49] VITALS: BP 152/75; PULSE 104; RESP 16; TEMP 36.6; O2SAT 95
[2022-08-05 22:16] VITALS: BP 137/80; PULSE 84; RESP 18; TEMP 37.1; O2SAT 98
[2022-08-06] MEDS: Phenobarbital 32.4 MG Tablet PO ×6 (02:07→23:53)
[2022-08-06 03:14] VITALS: BP 123/63; PULSE 92; RESP 16; TEMP 37.3; O2SAT 97
[2022-08-06] MEDS: busPIRone 15 MG TABLET PO ×3 (05:45→23:54)
[2022-08-06 06:11] LABS: Absolute Lymphocyte Count 1.22 X10^3/uL (0.83-4.51); Absolute Neutrophil Count 3.3 X10^3/uL (2.0-7.7); Basophil# 0.02 X10^3/uL; Basophil% 0.4 % (0-1); Eosinophil# 0.06 X10^3/uL; Eosinophils% 1.2 % (0-5); Hematocrit 40.9 % (40-54); Hemoglobin 14.6 g/dL (13.0-16.5); Lymphocyte # 1.22 X10^3/ul (0.83-4.51); Lymphocyte % 23.5 % (19-41); Mean Corp Hgb Conc 35.7 g/dL (32-36); Mean Corpuscular Hgb 32.9 pg (27.0-32.0); Mean Corpuscular Volume 92.1 fL (80-94); Monocyte# 0.52 X10^3/uL; NRBC Flagged by Analyzer 0 % (0-5); Neutrophil # 3.34 X10^3/uL (2.7-7.7); Neutrophil % 64.1 % (47-70); Platelet Count 104 K/mm3 (150-450); RBC Distribution Width CV 13.1 % (11.6-14.6); RBC Distribution Width SD 42.4 fl (35.1-43.9); Red Blood Count 4.44 M/mm3 (4.6-6.2); White Blood Count 5.2 K/mm3 (4.4-11.0)
[2022-08-06 06:35] LABS: Anion Gap 5 (5-15); BUN 11 mg/dL (7-18); BUN/Creat Ratio 10.8 RATIO (10-20); Calcium,Total 8.9 mg/dL (8.5-10.1); Chloride 101 mmol/L (98-107); Creatinine, Serum 1.02 mg/dL (0.70-1.30); EST Glomerular Filtration Rate 81 mL/min (>60); Est Glom Filt Rate - Afr Amer 98 mL/min (>60); Estimated Creatinine Clearance 86.48 ml/min; Glucose 89 mg/dL (74-106); Potassium 3.8 mmol/L (3.5-5.1); Sodium Level 137 mmol/L (136-145)
[2022-08-06 07:47] VITALS: BP 130/80; PULSE 85; RESP 16; TEMP 36.9; O2SAT 97
[2022-08-06] MEDS: hydrOXYzine PAM 25 MG Capsule 50 MG PO ×2 (07:53→18:26)
[2022-08-06] MEDS: Thiamine Hydrochloride 100 MG Tablet PO (07:53)
[2022-08-06] MEDS: Gabapentin 300 MG Capsule PO ×2 (07:53→23:53)
[2022-08-06] MEDS: Folic Acid 1 MG Tablet PO (07:54)
[2022-08-06] MEDS: Ensure Plus High Protein 120 ML LIQUID PO ×2 (07:54→11:22)
[2022-08-06] MEDS: fluvoxaMINE Maleate 50 MG Tablet 150 MG PO ×2 (09:17→23:54)
[2022-08-06] MEDS: Acetaminophen 325 MG Tablet 650 MG PO (11:26)
--- NOTE | 2022-08-06 13:46 | PN.HOSP_ITS ---
Subjective Subjective Patient seen and examined. He still complained of tremors and requested ativan. He had no other complaints and review of systems was otherwise negative. He has remained hemodynamically stable. Objective Data Objective Data Vital Signs: Vital Signs Temp Pulse Resp BP Pulse Ox O2 Del Method O2 Flow Rate 98.5 F 85 16 130/80 H 97 Room Air 2 08/06/22 07:47 08/06/22 07:47 08/06/22 07:47 08/06/22 07:47 08/06/22 07:47 08/06/22 07:47 08/04/22 21:50 Oxygen Flow Rate (L/min) 2 Oxygen Delivery Method Room Air Weight: 187 lb 2.759 oz Body Mass Index (BMI) 26.8 Intake & Output: Intake and Output for Last 24 Hours 08/04/22 08/05/22 08/06/22 23:59 23:59 23:59 Intake Total 1000 / 1800 2200 / 2200 Balance 1000 / 1800 2200 / 2200 Lab / Micro Data Result Diagrams: 08/06/22 05:40 08/06/22 05:40 Labs: Laboratory Results - last 24 hr 08/06/22 05:40: WBC 5.2, RBC 4.44 L, Hgb 14.6, Hct 40.9, MCV 92.1, MCH 32.9 H, MCHC 35.7, RDW Std Deviation 42.4, RDW Coeff of [place]ich[place] 13.1, Plt Count 104 L, MPV 10.0, Immature Gran % (Auto) 0.800, Neut % (Auto) 64.1, Lymph % (Auto) 23.5, [place] % (Auto) 10.0, Eos % (Auto) 1.2, Baso % (Auto) 0.4, Absolute Neuts (auto) 3.3, Absolute Lymphs (auto) 1.22, Nucleated RBC % 0 08/06/22 05:40: Sodium 137, Potassium 3.8, Chloride 101, Carbon Dioxide 31.0, Anion Gap 5, BUN 11, Creatinine 1.02, Estim Creat Clear Calc 86.48, Est GFR (MDRD) Af Amer 98, Est GFR (MDRD) Non-Af 81, BUN/Creatinine Ratio 10.8, Glucose 89, Calcium 8.9 Physical Exam Const alert and oriented x3 Constitutional Narrative: still anxious looking HEENT head/scalp atraumatic, moist oral mucous membranes and oropharynx normal Head and Scalp: normocephalic Mouth: oral and palatal mucosa normal Eyes PERRL, EOMs intact bilaterally and conjunctivae normal Neck no lymphadenopathy and supple Resp normal respiratory effort, no retractions, no use of accessory muscles and clear to auscultation bilaterally Cardio regular rate, regular rhythm, S1 normal heart sound, S2 normal heart sound and no murmurs GI normal to inspection, nondistended, normoactive bowel sounds, soft to palpation, non-tender and non-distended Extremity normal to inspection, full ROM and no clubbing, cyanosis or edema Neuro oriented x3, CN's II-XII intact bilaterally, moves all extremities and no focal motor deficits Neuro Narrative: tremors of UEs. Sensorium / Orientation: awake and alert Motor Exam: strength 5/5 throughout Psych Psych Narrative: anxious Assessment & Plan Assessment/Plan (1) Alcohol withdrawal: PLAN: Plan #Acute alcohol withdrawal * on alcohol withdrawal with phenobarbital * monitor CIWA score * on supportive meds for symptomatic relief * on thiamine, folic acid and multivites * added on ativan prn per CIWA * #Elevated blood pressure * likely due to alcohol abuse * BP has improved * #Elevated liver enzymes * likely due to chronic alcohol abuse * will trend #Thrombocytopenia * platelets are down to 104 today. Chronic. Likely due to chronic alcohol abuse. Trending downwards. * chronic. Will trend * DVT prophylaxis: low risk. Encourage to ambulate Charges/Coding Visit Charges Inpatient E&M: 34148 Subs Hosp L2
[2022-08-06 13:49] VITALS: BP 138/86; PULSE 104; RESP 18; TEMP 36.6; O2SAT 97
[2022-08-06] MEDS: traZODone 100 MG Tablet 300 MG PO (23:54)
[2022-08-07] MEDS: Acetaminophen 325 MG Tablet 650 MG PO ×2 (00:05→15:34)
[2022-08-07 01:00] VITALS: BP 131/86; PULSE 88; RESP 18; TEMP 36.8; O2SAT 98
[2022-08-07] MEDS: busPIRone 15 MG TABLET PO ×3 (05:22→23:04)
[2022-08-07] MEDS: Phenobarbital 32.4 MG Tablet PO ×4 (05:22→23:04)
[2022-08-07 05:39] VITALS: BP 133/89; PULSE 88; RESP 16; TEMP 36.9; O2SAT 98
[2022-08-07 06:32] LABS: Absolute Lymphocyte Count 1.34 X10^3/uL (0.83-4.51); Absolute Neutrophil Count 3.5 X10^3/uL (2.0-7.7); Basophil# 0.02 X10^3/uL; Basophil% 0.4 % (0-1); Eosinophil# 0.08 X10^3/uL; Eosinophils% 1.5 % (0-5); Hematocrit 39.3 % (40-54); Hemoglobin 13.8 g/dL (13.0-16.5); Lymphocyte # 1.34 X10^3/ul (0.83-4.51); Lymphocyte % 24.5 % (19-41); Mean Corp Hgb Conc 35.1 g/dL (32-36); Mean Corpuscular Hgb 32.8 pg (27.0-32.0); Mean Corpuscular Volume 93.3 fL (80-94); Mean Platelet Vol. 10.4 fl (6.2-12.0); Monocyte# 0.51 X10^3/uL; Monocyte% 9.3 % (0-10); NRBC Flagged by Analyzer 0 % (0-5); Neutrophil # 3.46 X10^3/uL (2.7-7.7); Platelet Count 101 K/mm3 (150-450); RBC Distribution Width CV 13.4 % (11.6-14.6); RBC Distribution Width SD 43.9 fl (35.1-43.9); Red Blood Count 4.21 M/mm3 (4.6-6.2); White Blood Count 5.5 K/mm3 (4.4-11.0)
[2022-08-07 06:53] LABS: Anion Gap 4 (5-15); BUN 11 mg/dL (7-18); Calcium,Total 8.8 mg/dL (8.5-10.1); Chloride 101 mmol/L (98-107); Creatinine, Serum 0.92 mg/dL (0.70-1.30); EST Glomerular Filtration Rate 92 mL/min (>60); Est Glom Filt Rate - Afr Amer 111 mL/min (>60); Estimated Creatinine Clearance 95.88 ml/min; Glucose 89 mg/dL (74-106); Potassium 4.1 mmol/L (3.5-5.1); Sodium Level 136 mmol/L (136-145)
[2022-08-07 09:24] VITALS: BP 140/91; PULSE 109; RESP 18; TEMP 36.3; O2SAT 98
[2022-08-07] MEDS: Folic Acid 1 MG Tablet PO (09:29)
[2022-08-07] MEDS: Thiamine Hydrochloride 100 MG Tablet PO (09:29)
[2022-08-07] MEDS: hydrOXYzine PAM 25 MG Capsule 50 MG PO ×2 (09:29→13:56)
[2022-08-07] MEDS: Senna/Docusate Sodium 1 Tablet 2 TABLET PO (09:30)
[2022-08-07] MEDS: fluvoxaMINE Maleate 50 MG Tablet 150 MG PO ×2 (09:30→23:04)
--- NOTE | 2022-08-07 10:39 | PN.HOSP_ITS ---
Subjective Subjective Patient seen and examined. He complains of tremors; he says he is having inner tremors. He says he wants to stay one more day. Review of systems is otherwise negative. Objective Data Objective Data Vital Signs: Vital Signs Temp Pulse Resp BP Pulse Ox O2 Del Method O2 Flow Rate 97.4 F L 109 H 18 140/91 H 98 Room Air 2 08/07/22 09:24 08/07/22 09:24 08/07/22 09:24 08/07/22 09:24 08/07/22 09:24 08/07/22 09:24 08/04/22 21:50 Oxygen Flow Rate (L/min) 2 Oxygen Delivery Method Room Air Weight: 187 lb 2.759 oz Body Mass Index (BMI) 26.8 Intake & Output: Intake and Output for Last 24 Hours 08/05/22 08/06/22 08/07/22 23:59 23:59 23:59 Intake Total 2200 / 2200 1150 / 1150 Balance 2200 / 2200 1150 / 1150 Lab / Micro Data Result Diagrams: 08/07/22 06:00 08/07/22 06:00 Labs: Laboratory Results - last 24 hr 08/07/22 06:00: WBC 5.5, RBC 4.21 L, Hgb 13.8, Hct 39.3 L, MCV 93.3, MCH 32.8 H, MCHC 35.1, RDW Std Deviation 43.9, RDW Coeff of [place]ich[place] 13.4, Plt Count 101 L, MPV 10.4, Immature Gran % (Auto) 1.300 H, Neut % (Auto) 63.0, Lymph % (Auto) 24.5, [place] % (Auto) 9.3, Eos % (Auto) 1.5, Baso % (Auto) 0.4, Absolute Neuts (auto) 3.5, Absolute Lymphs (auto) 1.34, Nucleated RBC % 0 08/07/22 06:00: Sodium 136, Potassium 4.1, Chloride 101, Carbon Dioxide 31.0, Anion Gap 4 L, BUN 11, Creatinine 0.92, Estim Creat Clear Calc 95.88, Est GFR (MDRD) Af Amer 111, Est GFR (MDRD) Non-Af 92, BUN/Creatinine Ratio 12.0, Glucose 89, Calcium 8.8 Physical Exam Const alert and oriented x3 HEENT head/scalp atraumatic, moist oral mucous membranes and oropharynx normal Head and Scalp: normocephalic Mouth: oral and palatal mucosa normal Eyes PERRL, EOMs intact bilaterally and conjunctivae normal Neck no lymphadenopathy and supple Resp normal respiratory effort, no retractions, no use of accessory muscles and clear to auscultation bilaterally Cardio regular rate, regular rhythm, S1 normal heart sound, S2 normal heart sound and no murmurs GI normal to inspection, nondistended, normoactive bowel sounds, soft to palpation, non-tender and non-distended Extremity normal to inspection, full ROM and no clubbing, cyanosis or edema Neuro oriented x3, CN's II-XII intact bilaterally, moves all extremities and no focal motor deficits Neuro Narrative: tremors of UEs. Sensorium / Orientation: awake and alert Motor Exam: strength 5/5 throughout Psych Psych Narrative: flat affect Assessment & Plan Assessment/Plan (1) Alcohol withdrawal: PLAN: Plan #Acute alcohol withdrawal * on alcohol withdrawal with phenobarbital * monitor CIWA score * on supportive meds for symptomatic relief * on thiamine, folic acid and multivites * added on ativan prn per CIWA * #Elevated blood pressure * likely due to alcohol abuse * BP has improved * #Elevated liver enzymes * likely due to chronic alcohol abuse * will trend #Thrombocytopenia * platelets are down to 101 today. Chronic. Likely due to chronic alcohol abuse. Trending downwards. * chronic. Will trend * DVT prophylaxis: low risk. Encourage to ambulate Disposition: wants to stay one more day Charges/Coding Visit Charges Inpatient E&M: 92290 Subs Hosp L2
--- NOTE | 2022-08-07 15:29 | CASEMGMT ---
Social work SW was updated by [facility] instrumentation specialist, that GRADY Gallo, from [facility] came to assist pt with Medicaid application and will return the form to [facility]. AL Motley
[2022-08-07 15:30] VITALS: BP 136/91; PULSE 91; RESP 18; TEMP 37.1; O2SAT 96
[2022-08-07] MEDS: Ondansetron 8 MG Tablet PO (15:34)
[2022-08-07] MEDS: Dicyclomine 10 MG Capsule 20 MG PO (15:34)
[2022-08-07] MEDS: Gabapentin 300 MG Capsule PO ×2 (15:35→23:04)
[2022-08-07 21:30] VITALS: BP 135/87; PULSE 82; RESP 18; TEMP 36.8; O2SAT 98
[2022-08-08] MEDS: Acetaminophen 325 MG Tablet 650 MG PO ×2 (00:21→08:29)
[2022-08-08] MEDS: traZODone 100 MG Tablet 300 MG PO (00:21)
[2022-08-08] MEDS: hydrOXYzine PAM 25 MG Capsule 50 MG PO ×2 (00:36→08:26)
[2022-08-08] MEDS: Phenobarbital 32.4 MG Tablet PO ×2 (06:04→11:09)
[2022-08-08] MEDS: busPIRone 15 MG TABLET PO (06:04)
[2022-08-08 07:24] LABS: Absolute Lymphocyte Count 1.63 X10^3/uL (0.83-4.51); Absolute Neutrophil Count 3.7 X10^3/uL (2.0-7.7); Basophil# 0.04 X10^3/uL; Basophil% 0.7 % (0-1); Eosinophil# 0.06 X10^3/uL; Hemoglobin 14.3 g/dL (13.0-16.5); Lymphocyte # 1.63 X10^3/ul (0.83-4.51); Lymphocyte % 26.9 % (19-41); Mean Corp Hgb Conc 35.8 g/dL (32-36); Mean Corpuscular Hgb 33.7 pg (27.0-32.0); Mean Corpuscular Volume 94.3 fL (80-94); Mean Platelet Vol. 10.8 fl (6.2-12.0); Monocyte# 0.56 X10^3/uL; Monocyte% 9.3 % (0-10); NRBC Flagged by Analyzer 0 % (0-5); Neutrophil # 3.67 X10^3/uL (2.7-7.7); Neutrophil % 60.6 % (47-70); POSITIVE COUNT YES; Platelet Count 139 K/mm3 (150-450); RBC Distribution Width SD 45.6 fl (35.1-43.9); Red Blood Count 4.24 M/mm3 (4.6-6.2); White Blood Count 6.1 K/mm3 (4.4-11.0)
[2022-08-08 07:25] LABS: Differential Indicated SCAN CRITERIA MET
[2022-08-08 07:41] LABS: Anion Gap 6 (5-15); BUN 15 mg/dL (7-18); Calcium,Total 8.8 mg/dL (8.5-10.1); Chloride 103 mmol/L (98-107); Creatinine, Serum 1.07 mg/dL (0.70-1.30); EST Glomerular Filtration Rate 77 mL/min (>60); Est Glom Filt Rate - Afr Amer 93 mL/min (>60); Estimated Creatinine Clearance 82.44 ml/min; Glucose 100 mg/dL (74-106); Potassium 4.1 mmol/L (3.5-5.1); Sodium Level 135 mmol/L (136-145)
[2022-08-08 08:02] LABS: Platelet Estimate SLT DEC (ADEQ)
[2022-08-08] MEDS: Folic Acid 1 MG Tablet PO (08:27)
[2022-08-08] MEDS: Thiamine Hydrochloride 100 MG Tablet PO (08:27)
[2022-08-08 08:33] VITALS: BP 141/78; RESP 17; TEMP 36.7; O2SAT 93
--- NOTE | 2022-08-08 09:48 | DCINST_ITS ---
Discharge Instructions Diet Discharge Diet: Low fat / Low cholesterol Activity Discharge Activity: Return to Normal Activity Weight Bearing Status: Weight bearing as tolerated Dressing / Incision Call your doctor if you observe: Fever of 101 or Higher, Shortness of breath, Dizziness, Swelling in the ankles and Increased palpitations (irregular heartbeat) Follow Up Care Test Results: Test results from this visit will be discussed in further detail at your follow- up appointment, if applicable. Discharge Plan Admission Admit Date/Time: 08/04/22 20:57 Primary Reason for Your Visit: Acute alcohol withdrawal Attending Provider: Nicolette Ames Primary Care Provider: Dagoberto Mari Consulting Providers: Giovani Baker Instructions Patient Instructions: Alcohol Withdrawal: What to Expect Discharge Orders/Prescriptions Prescriptions: Continued trazodone 150 MG tablet 300 mg PO QHS PRN (Reason: Sleep) 30 Days Qty: 60 0RF buspirone 15 mg tablet 15 mg PO TID Label Comments: TAKE 1 TABLET BY MOUTH THREE TIMES DAILY gabapentin 300 MG capsule 300 mg PO QHS fluvoxamine 100 MG tablet 150 mg PO BID Referrals / Follow Up: Dagoberto Mari MD [Primary Care Provider] - Within 2 Weeks Disposition Disposition (needs filled in before D/C Order can be placed): Home, Self Care
--- NOTE | 2022-08-08 09:49 | DS.PCM_ITS ---
Providers Date of Admission: 08/04/22 Date of Discharge: 08/08/22 Primary Care Physician: Dr. Dagoberto Mari MD Reason For Visit: DESIRE FOR ALCOHOL DETOXIFICATION Diagnosis Discharge Diagnosis (1) Alcohol withdrawal: Status: Acute Code(s): F10.939 - Alcohol use, unspecified with withdrawal, unspecified Plan #Acute alcohol withdrawal * on alcohol withdrawal with phenobarbital * monitor CIWA score * on supportive meds for symptomatic relief * on thiamine, folic acid and multivites * added on ativan prn per CIWA * #Elevated blood pressure * likely due to alcohol abuse * BP has improved * #Elevated liver enzymes * likely due to chronic alcohol abuse * will trend #Thrombocytopenia * platelets are down to 101 today. Chronic. Likely due to chronic alcohol abuse. Trending downwards. * chronic. Will trend * DVT prophylaxis: low risk. Encourage to ambulate Disposition: wants to stay one more day Medications at Discharge Home Medications trazodone 150 mg tablet 300 mg PO QHS PRN Sleep 30 days #60 tabs 05/11/18 buspirone 15 mg tablet 15 mg PO TID depression 05/22/22 gabapentin 300 mg capsule 300 mg PO QHS sleep 05/22/22 fluvoxamine 100 mg tablet 150 mg PO BID OCD 08/04/22 Hospital Course Operations None Procedures None Summary of Care Provided Minutes Spent on Discharge: 50 Hospital Course: Patient is a 52-year-old male with past medical history as outlined was admitted through the ED on 08/04/2022 for acute alcohol withdrawal. Patient drank 1/5 of whiskey per day and he had been drinking since the age of 17. He drank the night before admission but was not sure exactly how much he drank. He also complained of some tremors which was likely due to alcohol withdrawal. He was admitted and managed for acute alcohol withdrawal. He was started on alcohol withdrawal protocol with phenobarbital. Liver enzymes were elevated and this was thought to be due to chronic alcohol abuse. Patient tolerated the detox process and after 3 days he requested 1 more day because he was having tremors inside. Patient therefore completed a 4-day detox process and did well. He was discharged home on 08/08/2022 and is to follow-up with outpatient rehab services with potential for in patient rehabilitation. Patient was seen and examined prior to discharge. He had no active complaints and had an uneventful night. Systems otherwise negative. Labs and vitals reviewed. Home medication reviewed and reconciled. Physical Exam Const alert, oriented x3 and no apparent distress General Appearance: cooperative and comfortable Orientation / Consciousness: awake Exam Limitations: no limitations HEENT normocephalic, head/scalp atraumatic, hearing grossly normal bilaterally, moist oral mucous membranes and oropharynx normal Mouth: oral and palatal mucosa normal Eyes PERRL, EOMs intact bilaterally and conjunctivae normal Neck no lymphadenopathy and supple Resp normal respiratory effort, no retractions, no use of accessory muscles and clear to auscultation bilaterally Cardio regular rate, regular rhythm, S1 normal heart sound, S2 normal heart sound and no murmurs GI normal to inspection, nondistended, normoactive bowel sounds, soft to palpation, non-tender and non-distended Extremity normal to inspection, full ROM and no clubbing, cyanosis or edema Skin no rashes or lesions noted Neuro oriented x3, CN's II-XII intact bilaterally, moves all extremities and no focal motor deficits Sensorium / Orientation: awake and alert Motor Exam: strength 5/5 throughout Psych Psych Narrative: flat affect Weight / BMI Weight Weight: 187 lb 2.759 oz Body Mass Index (BMI) 26.8 ABG / Lab / Microbiology Data Result Diagrams: 08/08/22 06:10 08/08/22 06:10 Laboratory: Laboratory Results - last 24 hr 08/08/22 06:10: WBC 6.1, RBC 4.24 L, Hgb 14.3, Hct 40.0, MCV 94.3 H, MCH 33.7 H, MCHC 35.8, RDW Std Deviation 45.6 H, RDW Coeff of [place]icho 14.0, Plt Count 139 L, MPV 10.8, Immature Gran % (Auto) 1.500 H, Neut % (Auto) 60.6, Lymph % (Auto) 26.9, Meigs % (Auto) 9.3, Eos % (Auto) 1.0, Baso % (Auto) 0.7, Absolute Neuts (auto) 3.7, Absolute Lymphs (auto) 1.63, Nucleated RBC % 0, Platelet Estimate SLT DEC 08/08/22 06:10: Sodium 135 L, Potassium 4.1, Chloride 103, Carbon Dioxide 26.0, Anion Gap 6, BUN 15, Creatinine 1.07, Estim Creat Clear Calc 82.44, Est GFR (MDRD) Af Amer 93, Est GFR (MDRD) Non-Af 77, BUN/Creatinine Ratio 14.0, Glucose 100, Calcium 8.8 D/C Instructions Discharge Diet: Low fat / Low cholesterol Discharge Activity: Return to Normal Activity Weight Bearing Status: Weight bearing as tolerated Call your doctor if you observe: Fever of 101 or Higher, Shortness of breath, Dizziness, Swelling in the ankles and Increased palpitations (irregular heartbeat) Meaningful Use Info Meaningful Use Diagnoses (Choose all that apply): None applicable Discharge Plan Admission Admit Date/Time: 08/04/22 20:57 Primary Reason for Your Visit: Acute alcohol withdrawal Attending Provider: Nicolette Ames Primary Care Provider: Dagoberto Mari Consulting Providers: Giovani Baker Instructions Forms: Work / School Excuse Patient Instructions: Alcohol Withdrawal: What to Expect Discharge Orders/Prescriptions Prescriptions: Continued trazodone 150 MG tablet 300 mg PO QHS PRN (Reason: Sleep) 30 Days Qty: 60 0RF buspirone 15 mg tablet 15 mg PO TID Label Comments: TAKE 1 TABLET BY MOUTH THREE TIMES DAILY gabapentin 300 MG capsule 300 mg PO QHS fluvoxamine 100 MG tablet 150 mg PO BID Referrals / Follow Up: Dagoberto Mari MD [Primary Care Provider] - 08/09/22 3:00 pm (phone call apt) Disposition Disposition (needs filled in before D/C Order can be placed): Home, Self Care Charges/Coding Visit Charges Inpatient E&M: 28375 Disch Hosp
[2022-08-08] MEDS: fluvoxaMINE Maleate 50 MG Tablet 150 MG PO (10:02)
[2022-08-08] MEDS: 0.9% Saline Lock 10 ML Syringe IV (10:04)
[2022-08-08 11:20] VITALS: BP 136/84; PULSE 103; TEMP 36.9; O2SAT 99
[2022-08-08] MEDS: Ondansetron 8 MG Tablet PO (12:39)
== END 2022-08-08 13:03 | disposition home or self-care (01) | DRG 897 ==
LOC: ED 20:24 → MS3 21:27
PROVIDERS: Admitting Provider Hospitalist; Emergency Provider Emergency Medicine; PCP Family Medicine; Visit Provider Student in an Organized Health Care Education/Training Program
DX: F10.239 Alcohol dependence with withdrawal, unspecified (principal); D69.6 Thrombocytopenia, unspecified; F17.210 Nicotine dependence, cigarettes, uncomplicated; R74.8 Abnormal levels of other serum enzymes; R03.0 Elevated blood-pressure reading, without diagnosis of hypertension; Y90.9 Presence of alcohol in blood, level not specified
CPT/HCPCS: 36415; 80048; 80053; 82077; 85025; 85610; 93005; 97802; 99285; J7030; A4216

== ENCOUNTER 2022-08-11 19:10 | Inpatient (IN) | payer SELFPAY ==
[2022-08-11 19:12] VITALS: BP 152/91; PULSE 119; RESP 20; TEMP 36.7; O2SAT 98; BMI 27.5
--- NOTE | 2022-08-11 19:26 | EX.ED.DYSGE1 ---
HPI History of Present Illness Chief Complaint: ETOH Intox Informant: patient Narrative Narrative: 52-year-old male presenting requesting detox from alcohol. Patient states he drinks approximately a liter of whiskey per day. He was recently in detox and left the hospital on . Girlfriend states he has been drinking since leaving the hospital. Denies any trauma. She called EMS today because he wants to go through detox again. Denies drug use. Patient states he feels shaky. His last drink was 1 hour ago. Prior similar symptoms: Yes Recent Illness/Hospitalization: Yes PFSH PFSH Medical History DONTA (acute kidney injury) Anxiety Depression Desire for detoxification ETOH abuse History of foot fracture HTN (hypertension) Jaundice due to hepatitis Methamphetamine abuse OCD (obsessive compulsive disorder) Smoker Tobacco use Transaminitis Home Medications trazodone 150 mg tablet 300 mg PO QHS PRN Sleep 30 days #60 tabs 05/11/18 [Rx Last Taken 3 Days Ago ~05/19/22] buspirone 15 mg tablet 15 mg PO TID depression 05/22/22 [History Last Taken Unknown] gabapentin 300 mg capsule 300 mg PO QHS sleep 05/22/22 [History Last Taken Unknown] fluvoxamine 100 mg tablet 150 mg PO BID OCD 08/04/22 [History Last Taken Unknown] Allergy/AdvReac Type Severity Reaction Status Date / Time amoxicillin AdvReac Upset Verified 08/11/22 19:16 Stomach Family History Mother No problems noted. Father CAD (coronary artery disease) Heart disease Myocardial infarction Surgical History S/P herniorrhaphy Social History household members: significant other housing: apartment Smoking Status: Current every day smoker tobacco type: cigarettes alcohol intake: current substance use type: does not use ROS ROS ED Constitutional Constitutional ED: Denies fever(s) Eyes Eyes: Denies change in vision ENT ENT ED: Denies rhinorrhea or sore throat Cardiovascular Cardiovascular: Denies chest pain or palpitations Respiratory/Chest Respiratory/Chest: Denies cough or dyspnea Gastrointestinal Gastrointestinal: Reports nausea; Denies abdominal pain, diarrhea or vomiting Genitourinary Genitourinary ED: Denies dysuria Musculoskeletal Musculoskeletal: Denies myalgias Integumentary Denies rash Neurologic Neurologic: Denies headache(s) Psychiatric Psychiatric: Denies suicidal thoughts EXAM Physical Exam Const Vital Signs: 08/11/22 19:12 Temperature 98.0 F Temperature Source Oral Pulse Rate 119 H Respiratory Rate 20 H Blood Pressure 152/91 H Blood Pressure Mean 111 Pulse Ox 98 Oxygen Delivery Method Room Air Positive well nourished and well developed General Appearance ED: well developed HEENT Reports normocephalic and head/scalp atraumatic Eyes PERRL and EOMs intact bilaterally Neck supple General: Negative for tenderness Chest Wall inspection of chest normal Resp normal respiratory effort and clear to auscultation bilaterally Cardio regular rhythm Rate: tachycardic GI non-tender and non-distended Palpation: soft; Negative for guarding or rebound tenderness present no CVA tenderness Extremity normal to inspection Neuro oriented x3 Neuro Narrative: Intoxicated, cooperative Sensorium / Orientation: alert Psych mental status grossly normal MDM MDM Lab Data Attestation: I reviewed the patient's lab results. Lab results narrative: Patient was given IV fluids, Ativan. CMP was obtained. Alcohol is pending. Discussed with hospitalist for admission. Labs: Laboratory Results - last 24 hr 08/11/22 19:30 Sodium 138 Potassium 4.0 Chloride 100 Carbon Dioxide 24.0 Anion Gap 14 BUN 18 Creatinine 1.15 Estim Creat Clear Calc 76.70 Est GFR (MDRD) Af Amer 85 Est GFR (MDRD) Non-Af 71 BUN/Creatinine Ratio 15.7 Glucose 75 Calcium 8.5 Total Bilirubin 0.40 AST 162 H ALT 170 H Alkaline Phosphatase 118 H Total Protein 8.1 Albumin 3.9 Globulin 4.2 Albumin/Globulin Ratio 0.9 Discharge Plan Triage Chief Complaint: ETOH Intox ED Provider: Adeline Alvarez Dx/Rx/DC Orders Clinical Impression: Admitted to alcohol detoxification center, Alcohol abuse Prescriptions: No Action trazodone 150 MG tablet 300 mg PO QHS PRN (Reason: Sleep) 30 Days Qty: 60 0RF buspirone 15 mg tablet 15 mg PO TID Label Comments: TAKE 1 TABLET BY MOUTH THREE TIMES DAILY gabapentin 300 MG capsule 300 mg PO QHS fluvoxamine 100 MG tablet 150 mg PO BID Primary Care Provider: Dagoberto Mari Referrals: Dagoberto Mari MD [Primary Care Provider] - Disposition Disposition: Acute Care Hospital [facility]
[2022-08-11] MEDS: 0.9% Normal Saline 1,000 ML 1000 ML IV (19:33)
[2022-08-11 19:54] LABS: ALB/GLOB Ratio 0.9 RATIO (0.9-2.4); AST(SGOT) 162 U/L (15-37); Alanine Aminotransfer ALT/SGPT 170 U/L (16-61); Albumin, Serum 3.9 g/dL (3.2-5.0); Alkaline Phosphatase 118 U/L (45-117); Anion Gap 14 (5-15); BUN 18 mg/dL (7-18); BUN/Creat Ratio 15.7 RATIO (10-20); Calcium,Total 8.5 mg/dL (8.5-10.1); Chloride 100 mmol/L (98-107); Creatinine, Serum 1.15 mg/dL (0.70-1.30); EST Glomerular Filtration Rate 71 mL/min (>60); Est Glom Filt Rate - Afr Amer 85 mL/min (>60); Globulin 4.2 g/dL (2.2-4.2); Glucose 75 mg/dL (74-106); Protein, Total 8.1 g/dL (6.4-8.2); Sodium Level 138 mmol/L (136-145)
--- NOTE | 2022-08-11 20:07 | HP.PCM.HOS_ITS ---
HPI - General General Date of Admission: 08/11/22 Date of Service: 08/11/22 Chief Complaint: Desire for alcohol detoxification HPI Narrative ALTHEA TIERNEY, is a 52 M with a significant history of anxiety, depression, tobacco abuse and ethanol abuse who presents to the emergency department with? alcohol detoxification. He has been drinking since age 17.? He drinks about a liter of whiskey per day. Last time he drank was about an hour before presentation. He was given Ativan at the emergency department to abort tremors. [facility] Medical History DONTA (acute kidney injury) Anxiety Depression Desire for detoxification ETOH abuse History of foot fracture HTN (hypertension) Jaundice due to hepatitis Methamphetamine abuse OCD (obsessive compulsive disorder) Smoker Tobacco use Transaminitis Home Medications trazodone 150 mg tablet 300 mg PO QHS PRN Sleep 30 days #60 tabs 05/11/18 [Rx Last Taken 3 Days Ago ~05/19/22] buspirone 15 mg tablet 15 mg PO TID depression 05/22/22 [History Last Taken Unknown] gabapentin 300 mg capsule 300 mg PO QHS sleep 05/22/22 [History Last Taken Unknown] fluvoxamine 100 mg tablet 150 mg PO BID OCD 08/04/22 [History Last Taken Unknown] Allergy/AdvReac Type Severity Reaction Status Date / Time amoxicillin AdvReac Upset Verified 08/11/22 19:16 Stomach Family History Mother No problems noted. Father CAD (coronary artery disease) Heart disease Myocardial infarction Surgical History S/P herniorrhaphy Social History (Updated 08/12/22 @ 00:[address] Giovani Baker MD) household members: significant other housing: apartment Smoking Status: Current some day smoker alcohol intake: current substance use type: does not use ROS ROS Narrative Pertinent positives and pertinent negatives as noted in HPI. All other systems were reviewed and are negative Vital Signs Vital Signs Vital Signs: 08/11/22 19:12 Temperature 98.0 F Temperature Source Oral Pulse Rate 119 H Respiratory Rate 20 H Blood Pressure 152/91 H Blood Pressure Mean 111 Pulse Ox 98 Oxygen Delivery Method Room Air Weight Weight: 86.999 kg Body Mass Index (BMI) 27.5 Physical Exam Narrative Physical exam: General: Well-nourished, well-developed. Head: Normocephalic, atraumatic, no tenderness Eyes: Vision is grossly intact. EOMI ENT, no trauma, moist mucous membranes, no rhinorrhea Neck: Nontender, No thyromegaly. CVS: Regular rate and rhythm. S1-S2 present. No murmur, gallop or rub. Respiratory : clear to auscultation bilaterally, chest wall nontender, no wheezing Abdomen: Soft, nontender, nondistended, normal bowel sounds, no masses : Deferred Back: Nontender, no CVA tenderness, no midline spinal tenderness, deformities, step-offs Extremities: Nontender full range of motion, no trauma Skin: Normal color, no trauma, abrasions Neuro: Alert, oriented, cranial nerves II through XII grossly intact. Psychiatry: Normal mood. Normal affect. Not depressed. Not anxious. Results Lab / Micro Data Result Diagrams: 08/11/22 19:30 Labs: Laboratory Results - last 24 hr 08/11/22 19:30: Sodium 138, Potassium 4.0, Chloride 100, Carbon Dioxide 24.0, Anion Gap 14, BUN 18, Creatinine 1.15, Estim Creat Clear Calc 76.70, Est GFR (MDRD) Af Amer 85, Est GFR (MDRD) Non-Af 71, BUN/Creatinine Ratio 15.7, Glucose 75, Calcium 8.5, Total Bilirubin 0.40, AST 162 H, ALT 170 H, Alkaline Phosphatase 118 H, Total Protein 8.1, Albumin 3.9, Globulin 4.2, Albumin/ Globulin Ratio 0.9 Assessment & Plan Assessment/Plan (1) Alcohol withdrawal: (2) Elevated blood pressure reading: PLAN: Plan Alcohol dependence and desire for detoxification Alcohol level on presentation 287. Urine barbiturates positive. Patient be started on phenobarbital and other adjunctive medications: Gabapentin as needed; dicyclomine as needed; Vistaril as needed; Imodium as needed; t razodone as needed; Zofran as needed; scheduled thiamine; and schedule folic acid. Monitor CIWA score Tobacco abuse Counseled Elevated blood pressure the diagnosis of hypertension Likely secondary to? alcoholism.? Trend blood pressures. Elevated liver enzymes AST on presentation was 162.? ALT on presentation was 170 Chronic.? Like secondary to alcoholism DVT prophylaxis Low risk Encourage to ambulate Charges/Coding Visit Charges Inpatient E&M: 34208 Init Hosp L2
[2022-08-11 20:42] VITALS: PULSE 97; RESP 18; TEMP 36.8; O2SAT 97
[2022-08-11] MEDS: LORazepam 2 MG/ML Syringe 1 MG IV (20:52)
[2022-08-11 20:55] LABS: Vista UDS pH Range 6
[2022-08-11 21:10] LABS: Amphetamine Urine VISTA NEGATIVE (<1000 ng/mL); Barbiturate Urine VISTA POSITIVE (< 200 ng/mL); Benzodiazepine Urine VISTA NEGATIVE (< 200 ng/mL); Cocaine Urine VISTA NEGATIVE (< 300 ng/mL); Ecstacy Urine VISTA NEGATIVE (< 500 ng/mL); Methadone Urine VISTA NEGATIVE (< 300 ng/mL); PCP Urine VISTA NEGATIVE (< 25 ng/mL); THC Urine VISTA NEGATIVE (< 50 ng/mL)
[2022-08-11 23:06] VITALS: PULSE 65; RESP 16; TEMP 37; O2SAT 96
[2022-08-11 23:21] VITALS: BP 150/74; PULSE 104; RESP 24; TEMP 36.9; O2SAT 96
[2022-08-12] VITALS (9 sets, daily range): BP systolic 130–154; BP diastolic 70–99; PULSE 90–131; RESP 18–22; TEMP 36.4–37; O2SAT 93–98; BMI 28.5
[2022-08-12] MEDS: Phenobarbital 32.4 MG Tablet 97.2 MG PO ×3 (01:08→08:33)
[2022-08-12] MEDS: Acetaminophen 325 MG Tablet 650 MG PO (01:08)
--- NOTE | 2022-08-12 01:14 | ED.RN ---
Pt wont stay in his room, patient keeps wandering in the hallways. pt has been redirected back to his room multiple times. Pt refuses to stay on campus monitor.
[2022-08-12] MEDS: LORazepam 2 MG/ML Syringe IV (01:48)
--- NOTE | 2022-08-12 01:55 | ED.RN ---
Pt continuing to come out of room and trying to roam hallways. This RN reorienting pt multiple times. Pt stating he is seeing bugs in his room and on his feet. Dr. Baker told this RN to give 2mg Ativan IVP for pt symptoms. Verbal order read back the same.
[2022-08-12] MEDS: Gabapentin 300 MG Capsule PO (09:06)
[2022-08-12] MEDS: Folic Acid 1 MG Tablet PO (09:09)
[2022-08-12] MEDS: Thiamine Hydrochloride 100 MG Tablet PO (09:09)
[2022-08-12] MEDS: LORazepam 1 MG Tablet 2 MG PO ×2 (09:30→12:39)
[2022-08-12] MEDS: Acetaminophen 500 MG Tablet 1000 MG PO (10:26)
[2022-08-12] MEDS: Phenobarbital 32.4 MG Tablet 64.8 MG PO ×4 (12:31→23:55)
--- NOTE | 2022-08-12 18:16 | PN.HOSP_ITS ---
Subjective Subjective Patient seen this morning. States he was discharged from here and was unable to get a residential treatment started drinking right away as he was alone at home in his apartment. Complaining of diffuse body pain and worried about his anxiety. Is already on BuSpar and fluvoxamine for OCD at home. Asking persistently about Ativan scheduled and why we detoxed with phenobarb. I explained why but he was persistent about Ativan being utilized on a regular basis as he states it works better. I again explained that were not going to use scheduled Ativan but we will use it as needed for acute symptoms. I did e xplain he has other medications available as well. Objective Data Objective Data Vital Signs: Vital Signs Temp Pulse Resp BP Pulse Ox O2 Del Method 98.0 F 90 18 142/99 H 97 Room Air 08/12/22 17:37 08/12/22 17:37 08/12/22 17:37 08/12/22 17:37 08/12/22 17:37 08/12/22 17:37 Oxygen Delivery Method Room Air Weight: 90.265 kg Body Mass Index (BMI) 28.5 Intake & Output: Intake and Output for Last 24 Hours 08/10/22 08/11/22 08/12/22 23:59 23:59 23:59 Intake Total 1000 / 1000 Balance 1000 / 1000 Lab / Micro Data Result Diagrams: 08/11/22 19:30 Labs: Laboratory Results - last 24 hr 08/11/22 19:30: Sodium 138, Potassium 4.0, Chloride 100, Carbon Dioxide 24.0, Anion Gap 14, BUN 18, Creatinine 1.15, Estim Creat Clear Calc 76.70, Est GFR (MDRD) Af Amer 85, Est GFR (MDRD) Non-Af 71, BUN/Creatinine Ratio 15.7, Glucose 75, Calcium 8.5, Total Bilirubin 0.40, AST 162 H, ALT 170 H, Alkaline Phosphatase 118 H, Total Protein 8.1, Albumin 3.9, Globulin 4.2, Albumin/Globulin Ratio 0.9 08/11/22 19:30: Ethyl Alcohol 287.0 08/11/22 20:39: Urine Opiates Screen NEGATIVE, Urine Methadone Screen NEGATIVE, Ur Barbiturates Screen POSITIVE H, Ur Phencyclidine Scrn NEGATIVE, Ur Amphetamines Screen NEGATIVE, MDMA (Ecstasy) Screen NEGATIVE, U Benzodiazepines Scrn NEGATIVE, Urine Cocaine Screen NEGATIVE, U Cannabinoids Screen NEGATIVE, Ur Drug Screen Comment Physical Exam Const alert, oriented x3, no apparent distress and well nourished Constitutional Narrative: Middle-aged white male sitting up in bed, nursing at bedside, patient has no signs of acute tremor and no signs of severe withdrawal at this time HEENT head/scalp atraumatic, moist oral mucous membranes and oropharynx normal HEENT Narrative: Dentition is fair for age, Mallampati is 2, no thrush Resp normal respiratory effort, no retractions, no use of accessory muscles and clear to auscultation bilaterally Resp Narrative: Diffusely diminished but clear Cardio regular rhythm, S1 normal heart sound, S2 normal heart sound, no murmurs, no rub, no gallops and no clicks Cardio Narrative: Mild tachycardia GI normal to inspection, nondistended, normoactive bowel sounds, soft to palpation and non-tender Extremity no clubbing, cyanosis or edema Extremity Narrative: Left pedal pulses Skin Skin Narrative: Rash noted on dorsum of bilateral feet with some excoriation Neuro oriented x3, moves all extremities and no focal motor deficits Speech: speech normal Psych affect normal Assessment & Plan Assessment/Plan (1) Rash: (2) Alcoholic hepatitis: (3) Alcohol withdrawal: (4) Alcohol abuse: (5) Admitted to alcohol detoxification center: PLAN: Plan Acute alcohol withdrawal -Continue phenobarbital taper -Thiamine and folate -CIWA with as needed Ativan -Continue supportive medications -Strongly recommend discharge to residential treatment if possible -180 consultation pending Acute alcoholic up hepatitis -Transaminitis related to alcohol use -Expected trend down with detox -Repeat C MP in a.m. Bilateral foot rash -Pruritic in nature -Start steroids -Patient denies any known allergens or contacts -Continue to monitor -No signs of infection Elevated blood pressure -Likely related to detox -We will continue to trend blood pressures and monitor for needs of antihypertensives at discharge Tobacco abuse -Recommend cessation -Nicotine patch if needed Depression/OCD -Continue home medications DVT prophylaxis -Low risk -Encourage ambulation Charges/Coding Visit Charges Inpatient E&M: 22191 Subs Hosp L2
--- NOTE | 2022-08-12 19:25 | NURSING ---
Under Emergency Charting
--- NOTE | 2022-08-12 19:56 | NURSING ---
During assessment, patient kept dozing off. After he got the phenobarb he requested Ativan.
[2022-08-13 02:38] VITALS: BP 129/80; PULSE 91; RESP 18; TEMP 36.7; O2SAT 97
[2022-08-13] MEDS: Acetaminophen 500 MG Tablet 1000 MG PO ×3 (03:02→17:17)
[2022-08-13] MEDS: Phenobarbital 32.4 MG Tablet 64.8 MG PO ×5 (03:59→20:11)
[2022-08-13] MEDS: hydrOXYzine PAM 25 MG Capsule 50 MG PO ×3 (04:44→17:16)
[2022-08-13 06:58] LABS: AST(SGOT) 69 U/L (15-37); Alanine Aminotransfer ALT/SGPT 94 U/L (16-61); Albumin, Serum 3.2 g/dL (3.2-5.0); Alkaline Phosphatase 87 U/L (45-117); Bilirubin, Direct 0.28 mg/dL (0.00-0.30); Globulin 3.4 g/dL (2.2-4.2); Protein, Total 6.6 g/dL (6.4-8.2)
[2022-08-13] MEDS: Thiamine Hydrochloride 100 MG Tablet PO (08:27)
[2022-08-13] MEDS: Folic Acid 1 MG Tablet PO (08:27)
[2022-08-13 08:40] VITALS: BP 147/88; PULSE 87; RESP 18; TEMP 36.6; O2SAT 98
[2022-08-13 09:28] VITALS: O2SAT 95
[2022-08-13] MEDS: tiZANidine HCl 2 MG Tablet PO (10:05)
--- NOTE | 2022-08-13 10:54 | ADDICTION ---
Addiction therapist met with patient. Pt reported that he has no interest in recovery unless he is forced. I asked pt why he was here, he reports that his gf Tameka made him come to the ER. Pt reported that he started drinking directly after his assessment at [facility] on 08/08. Patient reported that he drove himself to buy 3 gallons of liquor. Pt did not answer many of TW assessment questions, he was hyper focused on the nurses coming in more often, getting his keys from his girlfriend, and getting Ativan for his body aches. TW will contact his gf to locate his keys.
[2022-08-13] MEDS: Gabapentin 300 MG Capsule PO (11:17)
[2022-08-13 12:31] VITALS: BP 137/84; PULSE 95; RESP 18; TEMP 37.1; O2SAT 98
[2022-08-13] MEDS: LORazepam 1 MG Tablet 2 MG PO (12:32)
--- NOTE | 2022-08-13 15:47 | PCM.PN.HOSP ---
Subjective Subjective Patient continued along with body aches and wants Ativan for treatment. CIWA protocol is in place and he does not meet criteria for Ativan use at this time. I explained we continued as needed medications and phenobarbital. He did meet with addiction today and per discussion with his significant other there have been some psychiatric concerns at home with homicidal ideation as well as the patient reported to his girlfriend that he has been hearing voices. With this ongoing we will have crisis see him when he is medically stable prior to discharge. Objective Data Objective Data Vital Signs: Vital Signs Temp Pulse Resp BP Pulse Ox O2 Del Method 98.7 F 95 18 137/84 H 98 Room Air 08/13/22 12:31 08/13/22 12:31 08/13/22 12:31 08/13/22 12:31 08/13/22 12:31 08/13/22 12:31 Oxygen Delivery Method Room Air Weight: 90.265 kg Body Mass Index (BMI) 28.5 Intake & Output: Intake and Output for Last 24 Hours 08/11/22 08/12/22 08/13/22 23:59 23:59 23:59 Intake Total 1000 / 1000 1200 / 1200 Balance 1000 / 1000 1200 / 1200 Lab / Micro Data Result Diagrams: 08/11/22 19:30 Labs: Laboratory Results - last 24 hr 08/13/22 05:45: Total Bilirubin 0.80, Direct Bilirubin 0.28, AST 69 H, ALT 94 H, Alkaline Phosphatase 87, Total Protein 6.6, Albumin 3.2, Globulin 3.4 Physical Exam Const alert, oriented x3, no apparent distress and well nourished Constitutional Narrative: Middle-aged white male sitting up in bed, nursing at bedside, patient has no signs of acute tremor and no signs of severe withdrawal at this time HEENT head/scalp atraumatic, moist oral mucous membranes and oropharynx normal Resp normal respiratory effort, no retractions, no use of accessory muscles and clear to auscultation bilaterally Resp Narrative: Diffusely diminished but clear Cardio regular rate, regular rhythm, S1 normal heart sound, S2 normal heart sound, no murmurs, no rub, no gallops and no clicks GI normal to inspection, nondistended, normoactive bowel sounds, soft to palpation and non-tender Extremity no clubbing, cyanosis or edema Extremity Narrative: Left pedal pulses Neuro oriented x3, moves all extremities and no focal motor deficits Speech: speech normal Psych affect normal Assessment & Plan Assessment/Plan (1) Rash: (2) Alcoholic hepatitis: (3) Alcohol withdrawal: (4) Alcohol abuse: (5) Admitted to alcohol detoxification center: PLAN: Plan Acute alcohol withdrawal -Continue phenobarbital taper -Thiamine and folate -CIWA with as needed Ativan -Continue supportive medications -Strongly recommend discharge to residential treatment if possible -180 following -Will need psychiatric evaluation prior to discharge Acute alcoholic up hepatitis -Transaminitis related to alcohol use -Trending down -Repeat C MP in a.m. Bilateral foot rash -Pruritic in nature -Improving -Continue topical steroids -Patient denies any known allergens or contacts -Continue to monitor -No signs of infection Elevated blood pressure -Improving but still remains elevated at 137/84 today -Likely related to detox -We will continue to trend blood pressures and monitor for needs of antihypertensives at discharge Tobacco abuse -Recommend cessation -Nicotine patch if needed Depression/OCD -Continue home medications DVT prophylaxis -Low risk -Encourage ambulation Charges/Coding Visit Charges Inpatient E&M: 25468 Subs Hosp L2
[2022-08-13 17:20] VITALS: BP 135/84; PULSE 90; RESP 18; TEMP 36.9; O2SAT 98
--- NOTE | 2022-08-13 18:56 | NURSING ---
MIRIAN Holden called and wanted to let this nurse knows that pt has money , a good solid savings and that he should not play victim with no insurance or such. Nurse notifies MIRIAN that is not a nursing concern she needs to talk to case management on those affairs regarding payment and services he need to and can pay for.
[2022-08-13 20:00] VITALS: BP 127/80; PULSE 98; RESP 14; TEMP 36.9; O2SAT 97
[2022-08-13] MEDS: Hydrocortisone 2.5% Crm 1 APPLIC TOPICAL (20:11)
[2022-08-14] MEDS: Phenobarbital 32.4 MG Tablet 64.8 MG PO ×6 (00:38→21:57)
[2022-08-14] MEDS: traZODone 100 MG Tablet PO (00:38)
[2022-08-14] MEDS: Gabapentin 300 MG Capsule PO ×3 (00:39→16:37)
[2022-08-14] MEDS: 0.9% Saline Lock 10 ML Syringe IV ×2 (00:46→04:49)
[2022-08-14 04:33] VITALS: BP 126/87; PULSE 89; RESP 14; TEMP 36.9; O2SAT 99
[2022-08-14] MEDS: Acetaminophen 500 MG Tablet 1000 MG PO ×2 (04:48→15:41)
[2022-08-14] MEDS: hydrOXYzine PAM 25 MG Capsule 50 MG PO ×2 (04:48→12:22)
--- NOTE | 2022-08-14 07:24 | NURSING ---
Emergency documentation
[2022-08-14 07:43] VITALS: BP 147/86; PULSE 109; RESP 18; TEMP 37.6; O2SAT 97
[2022-08-14] MEDS: LORazepam 1 MG Tablet 2 MG PO (07:55)
[2022-08-14] MEDS: Thiamine Hydrochloride 100 MG Tablet PO (07:56)
[2022-08-14] MEDS: Folic Acid 1 MG Tablet PO (07:56)
[2022-08-14 09:02] VITALS: O2SAT 95
--- NOTE | 2022-08-14 09:58 | PCM.PN.HOSP ---
Subjective Subjective Resting comfortably on my evaluation. He does have a CIWA score of 11 this morning Objective Data Objective Data Vital Signs: Vital Signs Temp Pulse Resp BP Pulse Ox O2 Del Method 99.6 F H 109 H 18 147/86 H 95 Room Air 08/14/22 07:43 08/14/22 07:43 08/14/22 07:43 08/14/22 07:43 08/14/22 09:02 08/14/22 09:02 Oxygen Delivery Method Room Air Weight: 199 lb Body Mass Index (BMI) 28.5 Intake & Output: Intake and Output for Last 24 Hours 08/13/22 08/14/22 08/15/22 03:59 03:59 03:59 Intake Total 1999 Balance 1999 Lab / Micro Data Result Diagrams: 08/11/22 19:30 Physical Exam Narrative General: Alert, Oriented x3, Cooperative, No apparent distress HEENT: Atraumatic, PERRLA, EOMI, Normocephalic Oral: Moist Mucosa Neck: Supple, No JVD Lungs: Clear to auscultation, Normal air movement, No rhonchi, No wheeze, No rales Cardiovascular: Regular rate, Regular Rhythm, Normal S1, Normal S2, No murmurs Abdomen: Soft, Non Tender, Non-Distended, No Hepato-splenomegaly Extremities: No edema, Capillary Refill Less than 3 Seconds Skin: No rashes, No breakdown Musculoskeletal: No Tenderness to Palpation of Joints or Extremities Neurological: Cranial nerves II-XII grossly intact, Motor Exam 5/5 strength throughout, Sensory exam intact to light touch and pain Psych/Mental Status: Anxious, Appropriate Assessment & Plan Assessment/Plan (1) Rash: (2) Alcoholic hepatitis: (3) Alcohol withdrawal: (4) Alcohol abuse: (5) Admitted to alcohol detoxification center: PLAN: Plan 1. Acute alcohol withdrawal with alcoholic hepatitis/tobacco abuse/depression/OCD ? Continue with his alcohol withdrawal protocol, he is started day 3 of the taper in terms of number of doses he has received ? We will have crisis evaluate him for psychiatric illness that was recorded by his girlfriend, he is currently medically cleared for this evaluation ? Appreciate 180's assistance ? Transaminitis are trending down and was related to alcohol use ? Discussed tobacco cessation, nicotine patch if necessary ? Will continue with his home mental health medications 2. Bilateral foot rash?resolved DVT: Ambulation Charges/Coding Visit Charges Inpatient E&M: 44067 Subs Hosp L2
--- NOTE | 2022-08-14 11:19 | CASEMGMT ---
Social Work SW notified by that pt will need Crisis Evaluation. GONZALEZ informed Dr pt needs to be medically clear. confirmed pt is and will include this in progress note for today. GONZALEZ faxed clinicals to request crisis eval for pt today. Crisis to call [facility] floor to set up time for evaluation. AL Motley
[2022-08-14] MEDS: busPIRone 15 MG TABLET 10 MG PO ×2 (12:22→21:58)
--- NOTE | 2022-08-14 13:35 | NURSING ---
spoke with Crisis Center regarding when Crisis will be in to see pt, as pt out to nurses station and asking if i am going home today or tomorrow because I would really like to leave today. Crisis states she will be in shortly to see pt.
--- NOTE | 2022-08-14 14:20 | NURSING ---
Lora from Crisis here, updated and she is in now in room currently seeing the pt.
--- NOTE | 2022-08-14 15:28 | NURSING ---
Both Dr. mcdowell and [facility] specialist aware of per Crisis pt does not qualify for inpatient psych needs
[2022-08-14 15:33] VITALS: BP 134/83; PULSE 107; RESP 18; TEMP 36.7; O2SAT 99
[2022-08-14] MEDS: Hydrocortisone 2.5% Crm 1 APPLIC TOPICAL (15:36)
--- NOTE | 2022-08-14 16:38 | NURSING ---
pt states he is wanting to leave [facility] and requesting said nurse phone his girlfriend to see what time she can be here to pick him up. phoned girlfriend she states she WILL NOT come pick him up since he is wanting to leave AMA. pt informed of such. pt currently agreeable to stay
[2022-08-14 21:46] VITALS: BP 140/91; PULSE 103; RESP 18; TEMP 36.8; O2SAT 100
[2022-08-14] MEDS: fluvoxaMINE Maleate 50 MG Tablet 150 MG PO (21:57)
[2022-08-15] MEDS: Acetaminophen 500 MG Tablet 1000 MG PO ×2 (01:17→09:08)
[2022-08-15] MEDS: traZODone 100 MG Tablet PO (01:17)
[2022-08-15] MEDS: LORazepam 1 MG Tablet 2 MG PO (01:18)
[2022-08-15 03:33] VITALS: BP 110/66; PULSE 79; RESP 18; TEMP 36.6; O2SAT 96
[2022-08-15] MEDS: Phenobarbital 32.4 MG Tablet 64.8 MG PO (03:38)
[2022-08-15] MEDS: busPIRone 15 MG TABLET 10 MG PO (06:08)
--- NOTE | 2022-08-15 07:08 | DCINST_ITS ---
Discharge Instructions Diet Discharge Diet: No restrictions Activity Discharge Activity: Return to Normal Activity Dressing / Incision Call your doctor if you observe: Fever of 101 or Higher, Shortness of breath, Dizziness, Fainting spells, Swelling in the ankles, Chest pain and Increased palpitations (irregular heartbeat) Follow Up Care Test Results: Test results from this visit will be discussed in further detail at your follow- up appointment, if applicable. Discharge Plan Admission Admit Date/Time: 08/11/22 20:01 Attending Provider: Douglas Moran Primary Care Provider: Dagoberto Mari Consulting Providers: Giovani Baker ; Faith Arzola Discharge Orders/Prescriptions Prescriptions: Continued trazodone 150 MG tablet 300 mg PO QHS PRN (Reason: Sleep) 30 Days Qty: 60 0RF buspirone 15 mg tablet 10 mg PO TID Label Comments: TAKE 1 TABLET BY MOUTH THREE TIMES DAILY gabapentin 300 MG capsule 300 mg PO QHS fluvoxamine 100 MG tablet 150 mg PO BID Referrals / Follow Up: Dagoberto Mari MD [Primary Care Provider] - Within 1 Week Disposition Disposition (needs filled in before D/C Order can be placed): Home, Self Care
--- NOTE | 2022-08-15 07:09 | PCM.DC.SUM ---
Providers Date of Admission: 08/11/22 Primary Care Physician: Dr. Dagoberto Mari MD Reason For Visit: DESIRE FOR DETOXIFICATION Diagnosis Discharge Diagnosis (1) Rash: Status: Acute Code(s): R21 - Rash and other nonspecific skin eruption (2) Alcoholic hepatitis: Status: Acute Code(s): K70.10 - Alcoholic hepatitis without ascites (3) Alcohol withdrawal: Status: Acute Code(s): F10.939 - Alcohol use, unspecified with withdrawal, unspecified (4) Alcohol abuse: Status: Acute Code(s): F10.10 - Alcohol abuse, uncomplicated (5) Admitted to alcohol detoxification center: Status: Acute Plan 1. Acute alcohol withdrawal with alcoholic hepatitis/tobacco abuse/depression/OCD ? Continue with his alcohol withdrawal protocol, he is started day 3 of the taper in terms of number of doses he has received ? We will have crisis evaluate him for psychiatric illness that was recorded by his girlfriend, he is currently medically cleared for this evaluation ? Appreciate 180's assistance ? Transaminitis are trending down and was related to alcohol use ? Discussed tobacco cessation, nicotine patch if necessary ? Will continue with his home mental health medications 2. Bilateral foot rash?resolved DVT: Ambulation Medications at Discharge Home Medications trazodone 150 mg tablet 300 mg PO QHS PRN Sleep 30 days #60 tabs 05/11/18 buspirone 15 mg tablet 10 mg PO TID depression 05/22/22 gabapentin 300 mg capsule 300 mg PO QHS sleep 05/22/22 fluvoxamine 100 mg tablet 150 mg PO BID OCD 08/04/22 Hospital Course Operations None Procedures None Summary of Care Provided Minutes Spent on Discharge: 36 Hospital Course: Per HPI: ALTHEA TIERNEY, is a 52 M with a significant history of anxiety, depression, tobacco abuse and ethanol abuse who presents to the emergency department with? alcohol detoxification. He has been drinking since age 17.? He drinks about a liter of whiskey per day. Last time he drank was about an hour before presentation.? He was given Ativan at the emergency department to abort tremors. Hospital Course: 1. Acute alcohol withdrawal with alcoholic hepatitis/tobacco abuse/depression/OCD?52-year-old male presented to the hospital 3 days after his last discharge for alcohol abuse. He told the workers compensation claims specialist that he started drinking as soon as his intake was done on 08/08/2022. He has no intention of ever quitting drinking and he is only here because his girlfriend made him come. There was some concern for either suicidal or homicidal ideation which she is denying and he was evaluated by crisis who did not find a psychiatric need for placement at this time. He refuses to go to detox and so since his CIWA scores today were 1 plan was for discharge. I discussed this with him and he expressed understanding Fabianan of is going home and wants go home today. Physical Exam Narrative General: Alert, Oriented x3, Cooperative, No apparent distress HEENT: Atraumatic, PERRLA, EOMI, Normocephalic Oral: Moist Mucosa Neck: Supple, No JVD Lungs: Clear to auscultation, Normal air movement, No rhonchi, No wheeze, No rales Cardiovascular: Regular rate, Regular Rhythm, Normal S1, Normal S2, No murmurs Abdomen: Soft, Non Tender, Non-Distended, No Hepato-splenomegaly Extremities: No edema, Capillary Refill Less than 3 Seconds Skin: No rashes, No breakdown Musculoskeletal: No Tenderness to Palpation of Joints or Extremities Neurological: Cranial nerves II-XII grossly intact, Motor Exam 5/5 strength throughout, Sensory exam intact to light touch and pain Psych/Mental Status: Anxious, Appropriate Weight / BMI Weight Weight: 199 lb Body Mass Index (BMI) 28.5 ABG / Lab / Microbiology Data Result Diagrams: 08/11/22 19:30 D/C Instructions Discharge Diet: No restrictions Call your doctor if you observe: Fever of 101 or Higher, Shortness of breath, Dizziness, Fainting spells, Swelling in the ankles, Chest pain and Increased palpitations (irregular heartbeat) Meaningful Use Info Meaningful Use Diagnoses (Choose all that apply): None applicable Discharge Plan Admission Admit Date/Time: 08/11/22 20:01 Attending Provider: Douglas Moran Primary Care Provider: Dagoberto Mari Consulting Providers: Giovani Baker ; Faith Arzola Discharge Orders/Prescriptions Prescriptions: Continued trazodone 150 MG tablet 300 mg PO QHS PRN (Reason: Sleep) 30 Days Qty: 60 0RF buspirone 15 mg tablet 10 mg PO TID Label Comments: TAKE 1 TABLET BY MOUTH THREE TIMES DAILY gabapentin 300 MG capsule 300 mg PO QHS fluvoxamine 100 MG tablet 150 mg PO BID Referrals / Follow Up: Dagoberto Mari MD [Primary Care Provider] - Within 1 Week Disposition Disposition (needs filled in before D/C Order can be placed): Home, Self Care Charges/Coding Visit Charges Inpatient E&M: 07755 Disch Hosp
[2022-08-15 07:49] VITALS: O2SAT 96
[2022-08-15 09:04] VITALS: BP 133/91; PULSE 90; RESP 18; TEMP 36.8; O2SAT 95
[2022-08-15] MEDS: hydrOXYzine PAM 25 MG Capsule 50 MG PO (09:08)
[2022-08-15] MEDS: Thiamine Hydrochloride 100 MG Tablet PO (09:08)
[2022-08-15] MEDS: fluvoxaMINE Maleate 50 MG Tablet 150 MG PO (09:08)
[2022-08-15] MEDS: Folic Acid 1 MG Tablet PO (09:08)
--- NOTE | 2022-08-15 10:13 | NURSING ---
2 attempts to notify pt significant other (pt states that is who is picking him up) and no answer on cell phone. message left to call [facility].
--- NOTE | 2022-08-15 10:22 | NURSING ---
[facility] law specialist aware of unable to reach significant other. Attempting to arrange hospital transportation ride to home for pt.
== END 2022-08-15 12:12 | disposition home or self-care (01) | DRG 897 ==
LOC: ED 20:11 → MS3 08-12 07:36
PROVIDERS: Internal Medicine; Admitting Provider Hospitalist; Emergency Provider Emergency Medicine; PCP Family Medicine; Visit Provider Family Medicine
DX: F10.239 Alcohol dependence with withdrawal, unspecified (principal); F17.210 Nicotine dependence, cigarettes, uncomplicated; K70.10 Alcoholic hepatitis without ascites; Z82.49 Family history of ischemic heart disease and other diseases of the circulatory system; R03.0 Elevated blood-pressure reading, without diagnosis of hypertension; R21 Rash and other nonspecific skin eruption; F42.9 Obsessive-compulsive disorder, unspecified; F32.A Depression, unspecified; Y90.8 Blood alcohol level of 240 mg/100 ml or more
CPT/HCPCS: 36415; 80053; 80076; 80307; 82077; 99285; J7030; A4216

== ENCOUNTER 2022-08-21 04:14 | Inpatient (IN) | payer MEDICAID, SELFPAY ==
[2022-08-21] VITALS (13 sets, daily range): BP systolic 124–157; BP diastolic 64–117; PULSE 95–130; RESP 15–28; TEMP 35.9–37.2; O2SAT 93–99; BMI 28.0; BMI 21.2
--- NOTE | 2022-08-21 04:28 | CT_ITS ---
EXAM: CT CERVICAL SPINE WITHOUT INTRAVENOUS CONTRAST CLINICAL INDICATION: fall TECHNIQUE: Helically acquired images were obtained of the cervical spine without intravenous contrast. 2D reformatted images were reviewed. This CT exam was performed using one or more of the following dose reduction techniques: automated exposure control, adjustment of the mA and/or kV according to patient size, and/or use of iterative reconstruction technique. This report was created using [employer] report generation technology. RADIATION DOSE: Total DLP: 612.00 mGy-cm. COMPARISON: None. FINDINGS: VERTEBRAE: Slight reversal of the normal cervical lordosis due to patient positioning or muscle spasm. No compression fracture. No subluxation. No facet dislocation or posterior element fracture. DISCS/SPINAL CANAL/NEURAL FORAMINA: Mild/moderate degenerative narrowing of the mid to lower cervical disc spaces with mild endplate sclerosis, marginal osteophytes and uncinate hypertrophy. Cervical facet arthritis, right greater than left. Degenerative narrowing of the predentate distance. [id number] flattening of the ventral aspect of the thecal sac at the narrowed C4/5 level due to annular bulging and posterior osteophytes. Multilevel neural foraminal encroachment due to uncinate hypertrophy, greatest on the right at C4/5. No critical thecal sac stenosis. SOFT TISSUES: Unremarkable. No prevertebral soft tissue swelling. LUNG APICES: Unremarkable as visualized. Clear. Visualized upper ribs are intact. CT/Spine Cervical without Contras IMPRESSION: Cervical degenerative changes. Slight reversal of cervical lordosis due to positioning or muscle spasm. No acute fracture or subluxation. Electronically Signed: John Leonardo MD at 5:43 EST ,
--- NOTE | 2022-08-21 04:28 | CT_ITS ---
STUDY: CT BRAIN WITHOUT CONTRAST REASON FOR EXAM: Male, 52 years old. fall RADIATION DOSAGE (If Supplied By Facility): CTDIvol = ( 44.99 ) mGy, DLP = ( 812.98 ) mGycm TECHNIQUE: Transaxial CT imaging of the brain was performed without administration of intravenous contrast material. Individualized dose optimization techniques were used for this CT. COMPARISON: No relevant priors. FINDINGS: Normal soft tissue structures. Normal calvarium. Normal size ventricles and extra-axial spaces for the patient''s age. Normal white matter tracts of the cerebral hemispheres. Normal basal ganglia and thalami. Normal brainstem. Normal cerebellum. There is no intracranial hemorrhage. There are no findings of an acute ischemic infarction. Normal visualized paranasal sinuses. CT/Brain/Head without Contrast IMPRESSION: Normal unenhanced CT scan of the brain. Electronically Signed: Yuki Perez MD at 5:23 EST ,
--- NOTE | 2022-08-21 04:28 | CT_ITS ---
EXAM: CT MAXILLOFACIAL WITHOUT INTRAVENOUS CONTRAST CLINICAL INDICATION: fall TECHNIQUE: Helically acquired images were obtained of the face without intravenous contrast. This CT exam was performed using one or more of the following dose reduction techniques: automated exposure control, adjustment of the mA and/or kV according to patient size, and/or use of iterative reconstruction technique. This report was created using [employer] report generation technology. RADIATION DOSE: Total DLP: 635.61 mGy-cm. COMPARISON: Cranial CT of this date. FINDINGS: BONES/JOINTS: Flattening of the distal tip of the nasal bone, consistent with an old fracture. No acute facial bone fracture. No discrete lytic or blastic abnormalities. No TMJ dislocation. SOFT TISSUES: Mild facial soft tissue swelling. No discrete fluid collections. ORBITS: Unremarkable. Both globes are unremarkable. Extraocular muscles are normal. Retrobulbar fat appears unremarkable. SINUSES: Minimal mucosal thickening within the inferior left frontal sinus. No paranasal sinus air-fluid levels. Hypertrophy of the left middle and inferior nasal turbinates. MASTOID AIR CELLS: Unremarkable as visualized. Clear. DENTAL: No acute findings. No periodontal osseous erosion. CT/Sinus/Facial Bone IMPRESSION: No acute facial bone fracture identified. Electronically Signed: John Leonardo MD at 5:46 EST ,
--- NOTE | 2022-08-21 04:30 | CT_ITS ---
EXAM: CT ABDOMEN AND PELVIS WITHOUT INTRAVENOUS CONTRAST CLINICAL INDICATION: fall TECHNIQUE: Helically acquired images were obtained of the abdomen and pelvis without intravenous contrast. This CT exam was performed using one or more of the following dose reduction techniques: automated exposure control, adjustment of the mA and/or kV according to patient size, and/or use of iterative reconstruction technique. This report was created using [employer] report generation technology. RADIATION DOSE: Total DLP: 626.70 mGy-cm. COMPARISON: None. FINDINGS: LOWER THORAX: Minimal subpleural infiltrate within the right lower lobe postero-laterally, due to atelectasis or scarring. No pleural fluid collection. No coronary artery calcification is visualized. No significant pericardial effusion. ABDOMEN: LIVER: Liver is enlarged with the right hepatic lobe measuring 20.4 cm in cephalocaudal dimension. Diffuse fatty infiltration of liver. No focal hepatic abnormality. GALLBLADDER AND BILE DUCTS: Gallbladder is mildly enlarged measuring 10 x 4.7 cm in diameter. Slightly increased attenuation throughout the gallbladder consistent with sludge. No calcified gallstones, wall thickening or pericholecystic stranding. PANCREAS: Unremarkable. No focal cystic mass. SPLEEN: Unremarkable. Normal size without focal cystic or solid mass. ADRENALS: Unremarkable. No nodules. KIDNEYS AND URETERS: Normal size kidneys. Mild nonspecific perirenal stranding. 2 punctate nonobstructing stones within the right intrarenal collecting system. At least 3 small nonobstructing stones noted within the left intrarenal collecting system. No hydronephrosis or obstructing ureteral stone. STOMACH AND BOWEL: Unremarkable. No stomach or bowel distention. No focal inflammatory change. PELVIS: APPENDIX: No evidence of acute appendicitis. BLADDER: Unremarkable. REPRODUCTIVE: Unremarkable as visualized. No mass. ABDOMEN and PELVIS: INTRAPERITONEAL SPACE: Unremarkable. No ascites or other fluid collection. No free air. BONES/JOINTS: Large flowing osteophytes lower thoracic region. Degenerative spurring about the L3/4 disc space. No acute fracture. No suspicious lytic or blastic abnormality. SOFT TISSUES: Minimal asymmetric hazy density within the subcutaneous fat of the right flank, at the level of the right iliac wing, consistent with bruising. No focal hematoma. Small fat-filled inguinal hernias. VASCULATURE: Unremarkable. Abdominal aorta is non-dilated. LYMPH NODES: Unremarkable. No enlarged lymph nodes. CT/Abdomen/Pelvis without Cont IMPRESSION: Enlarged fatty liver. Nonobstructing bilateral renal calculi. No obstructing ureteral stone or hydronephrosis. Minimal bruising within the subcutaneous fat of the right flank. No acute fracture. No acute intra-abdominal abnormality. Electronically Signed: John Leonardo MD at 5:57 EST ,
--- NOTE | 2022-08-21 04:30 | RAD_ITS ---
EXAM: XR CHEST, 2 VIEWS CLINICAL INDICATION: fall TECHNIQUE: Frontal and lateral views of the chest. This report was created using [employer] report generation technology. COMPARISON: None. FINDINGS: LUNGS AND PLEURAL SPACES: Unremarkable. No consolidation or edema. No pneumothorax. No effusion. HEART: Unremarkable. Cardiac silhouette not enlarged. Normal pulmonary vasculature. MEDIASTINUM: Central airways and mediastinal contour are unremarkable. BONES/JOINTS: Lower thoracic degenerative spurring. No acute osseous abnormality. SOFT TISSUES: Unremarkable. RAD/Chest PA and Lateral IMPRESSION: No radiographic evidence of acute cardiopulmonary disease. Electronically Signed: John Leonardo MD at 5:31 EST ,
[2022-08-21] MEDS: Ketorolac 30 MG/ML Syringe IV (04:39)
[2022-08-21] MEDS: 0.9% Normal Saline 1,000 ML 1000 ML IV (04:39)
[2022-08-21 04:52] LABS: Absolute Lymphocyte Count 1.45 X10^3/uL (0.83-4.51); Absolute Neutrophil Count 4.2 X10^3/uL (2.0-7.7); Basophil# 0.05 X10^3/uL; Basophil% 0.7 % (0-1); Eosinophil# 0.15 X10^3/uL; Eosinophils% 2.2 % (0-5); Hematocrit 39.6 % (40-54); Hemoglobin 14.3 g/dL (13.0-16.5); Lymphocyte # 1.45 X10^3/ul (0.83-4.51); Lymphocyte % 20.9 % (19-41); Mean Corp Hgb Conc 36.1 g/dL (32-36); Mean Corpuscular Hgb 33.4 pg (27.0-32.0); Mean Corpuscular Volume 92.5 fL (80-94); Mean Platelet Vol. 8.8 fl (6.2-12.0); Monocyte# 1.07 X10^3/uL; Monocyte% 15.4 % (0-10); NRBC Flagged by Analyzer 0 % (0-5); Neutrophil # 4.15 X10^3/uL (2.7-7.7); Neutrophil % 59.9 % (47-70); Platelet Count 225 K/mm3 (150-450); RBC Distribution Width CV 15.1 % (11.6-14.6); RBC Distribution Width SD 50.6 fl (35.1-43.9); Red Blood Count 4.28 M/mm3 (4.6-6.2); White Blood Count 6.9 K/mm3 (4.4-11.0)
--- NOTE | 2022-08-21 05:00 | EX.ED.DYSGE1 ---
HPI History of Present Illness Chief Complaint: ETOH Intox Informant: patient Narrative Narrative: Patient brought in by EMS secondary to EtOH intoxication. Patient has a history of alcoholism and has been in the detox program here at [facility] twice this month. He was most recently discharged on the . He reported he drinks about 1/5 of whiskey daily. Somehow police were called tonight and patient was found stumbling around in his home. He had fallen. He has bruises and abrasions in various stages of healing. Patient does not know if he was knocked out. He does not remember when his last drink was. [facility] Medical History Admitted to alcohol detoxification center [facility] (acute kidney injury) Alcohol abuse Anxiety Depression Desire for detoxification ETOH abuse History of foot fracture HTN (hypertension) Jaundice due to hepatitis Methamphetamine abuse OCD (obsessive compulsive disorder) Smoker Tobacco use Transaminitis Home Medications trazodone 150 mg tablet 300 mg PO QHS PRN Sleep 30 days #60 tabs 05/11/18 [Rx Last Taken 3 Days Ago ~05/19/22] buspirone 15 mg tablet 10 mg PO TID depression 05/22/22 [History Last Taken Unknown] gabapentin 300 mg capsule 300 mg PO QHS sleep 05/22/22 [History Last Taken Unknown] fluvoxamine 100 mg tablet 150 mg PO BID OCD 08/04/22 [History Last Taken Unknown] amlodipine 5 mg tablet 5 mg PO DAILY 08/21/22 [History Last Taken Unknown] Allergy/AdvReac Type Severity Reaction Status Date / Time amoxicillin AdvReac Upset Verified 08/11/22 19:16 Stomach Family History Mother No problems noted. Father CAD (coronary artery disease) Heart disease Myocardial infarction Surgical History S/P herniorrhaphy Social History household members: significant other housing: apartment Smoking Status: Current some day smoker tobacco type: cigarettes alcohol intake: current substance use type: does not use ROS ROS ED Constitutional Constitutional ED: Denies chills or fever(s) Eyes Eyes: Denies change in vision or discharge from eye(s) ENT ENT ED: Denies discharge from eye(s), rhinorrhea or sore throat Cardiovascular Cardiovascular: Denies chest pain or palpitations Respiratory/Chest Respiratory/Chest: Denies cough or dyspnea Gastrointestinal Gastrointestinal: Denies abdominal pain, nausea or vomiting Genitourinary Genitourinary ED: Denies dysuria Musculoskeletal Musculoskeletal: Reports arthralgias and myalgias Integumentary Reports Abrasions and other Details: Ecchymoses ; Denies rash Neurologic Neurologic: Denies headache(s) or weakness Psychiatric Psychiatric: Denies anxiety or depression Allergic/Immunologic Allergic/Immunologic ED: Denies lip swelling or urticaria EXAM Physical Exam Const Vital Signs: 08/21/22 04:15 08/21/22 05:14 Temperature 96.7 F L 98.9 F Temperature Source Temporal Temporal Pulse Rate 124 H 108 H Respiratory Rate 18 15 Blood Pressure 153/93 H 156/89 H Blood Pressure Mean 113 111 Pulse Ox 97 95 Oxygen Delivery Method Room Air Room Air Positive well nourished and well developed General Appearance ED: well developed HEENT Reports moist mucous membranes HEENT Narrative: Facial abrasions noted. Dried blood noted across the patient's nose. Eyes PERRL and EOMs intact bilaterally Neck Neck Narrative: No focal C-spine tenderness. Chest Wall palpation of chest normal Chest Narrative: Scattered abrasions and ecchymosis in various stages of healing. Resp normal respiratory effort and clear to auscultation bilaterally Cardio Rate: tachycardic GI non-tender Palpation: soft Back/Spine Back/Spine Narrative: Abrasions and ecchymosis in various stages of healing noted on his back. No midline spinal tenderness. Neuro Neuro Narrative: Patient alert with no focal deficits. MDM MDM MDM Narrative Medical decision making narrative: Given the patient's injuries he was sent for chest x-ray along with CT scans of the head, C-spine, facial bones, abdomen, and pelvis. I did review of prior records and patient has had seizures with alcohol withdrawal in the past. He was given p.o. phenobarbital and IV Ativan. He was given Toradol for pain. Lab Data Attestation: I reviewed the patient's lab results. Labs: Laboratory Results - last 24 hr 08/21/22 08/21/22 08/21/22 04:40 04:40 04:40 WBC 6.9 RBC 4.28 L Hgb 14.3 Hct 39.6 L MCV 92.5 MCH 33.4 H MCHC 36.1 H RDW Std Deviation 50.6 H RDW Coeff of [place] 15.1 H Plt Count 225 MPV 8.8 Immature Gran % (Auto) 0.900 Neut % (Auto) 59.9 Lymph % (Auto) 20.9 [place] % (Auto) 15.4 H Eos % (Auto) 2.2 Baso % (Auto) 0.7 Absolute Neuts (auto) 4.2 Absolute Lymphs (auto) 1.45 Nucleated RBC % 0 PT 12.4 INR 1.0 APTT 27.8 Sodium 134 L Potassium 3.7 Chloride 95 L Carbon Dioxide 23.0 Anion Gap 16 H BUN 9 Creatinine 0.91 Estim Creat Clear Calc 96.93 Est GFR (MDRD) Af Amer 111 Est GFR (MDRD) Non-Af 92 BUN/Creatinine Ratio 9.8 L Glucose 120 H Calcium 8.3 L Total Bilirubin 0.90 Direct Bilirubin 0.34 H AST 371 H ALT 371 H Alkaline Phosphatase 135 H Total Protein 7.3 Albumin 4.0 Globulin 3.3 Ethyl Alcohol 08/21/22 04:40 WBC RBC Hgb Hct MCV MCH MCHC RDW Std Deviation RDW Coeff of [place] Plt Count MPV Immature Gran % (Auto) Neut % (Auto) Lymph % (Auto) [place] % (Auto) Eos % (Auto) Baso % (Auto) Absolute Neuts (auto) Absolute Lymphs (auto) Nucleated RBC % PT INR APTT Sodium Potassium Chloride Carbon Dioxide Anion Gap BUN Creatinine Estim Creat Clear Calc Est GFR (MDRD) Af Amer Est GFR (MDRD) Non-Af BUN/Creatinine Ratio Glucose Calcium Total Bilirubin Direct Bilirubin AST ALT Alkaline Phosphatase Total Protein Albumin Globulin Ethyl Alcohol 183.0 Radiography Chest X-Ray - ED: 2 View, Read by ED Physician, Normal, Heart, Lungs and Mediastinum Diagnostic Testing: Clinical Impression(s) from Imaging Studies Brain CT 08/21/22 04:28 IMPRESSION: Normal unenhanced CT scan of the brain. Electronically Signed: Yuki Perez MD at 5:23 EST , Cervical Spine CT 08/21/22 04:28 IMPRESSION: Cervical degenerative changes. Slight reversal of cervical lordosis due to positioning or muscle spasm. No acute fracture or subluxation. Electronically Signed: John Leonardo MD at 5:43 EST , Facial/Sinus 08/21/22 04:28 IMPRESSION: No acute facial bone fracture identified. Electronically Signed: John Leonardo MD at 5:46 EST , Abdomen/Pelvis CT 08/21/22 04:30 IMPRESSION: Enlarged fatty liver. Nonobstructing bilateral renal calculi. No obstructing ureteral stone or hydronephrosis. Minimal bruising within the subcutaneous fat of the right flank. No acute fracture. No acute intra-abdominal abnormality. Electronically Signed: John Leonardo MD at 5:57 EST , Chest X-Ray 08/21/22 04:30 IMPRESSION: No radiographic evidence of acute cardiopulmonary disease. Electronically Signed: John Leonardo MD at 5:31 EST , Treatment and Re-Evaluation Narrative: CBC reveals normal white count. Hemoglobin is normal at 14.3. Coags are unremarkable. Chemistry studies are normal. LFTs are significant for an AST of 371, ALT 371, alk phos 135. Glucose is 120. Alcohol level is 183. Two-view chest x-ray per my interpretation reveals no acute findings. Radiology interpretation is reviewed. CT scan of the head, C-spine, facial bones reveal no acute fracture. CT flank reveals minimal bruising in the right flank. Fatty enlarged liver is noted. I discussed the case with hospitalist as patient has been here twice recently for detox. Patient states that he does want help with detox and will need to go to a rehab facility from here. Hospitalist will see the patient for admission. Discharge Plan Triage Chief Complaint: ETOH Intox ED Provider: Barby Joshua Dx/Rx/DC Orders Clinical Impression: Desire for detoxification, Alcohol abuse Prescriptions: No Action trazodone 150 MG tablet 300 mg PO QHS PRN (Reason: Sleep) 30 Days Qty: 60 0RF buspirone 15 mg tablet 10 mg PO TID Label Comments: TAKE 1 TABLET BY MOUTH THREE TIMES DAILY gabapentin 300 MG capsule 300 mg PO QHS fluvoxamine 100 MG tablet 150 mg PO BID amlodipine 5 mg tablet 5 mg PO DAILY Label Comments: take 1 tablet by mouth once daily Primary Care Provider: Dagoberto Mari Referrals: Dagoberto Mari MD [Primary Care Provider] - Disposition Disposition: Acute Care Hospital [facility]
[2022-08-21] MEDS: Phenobarbital 32.4 MG Tablet 97.2 MG PO ×2 (05:19→07:50)
[2022-08-21] MEDS: LORazepam 2 MG/ML Syringe 1 MG IV ×2 (05:19→06:33)
[2022-08-21 05:20] LABS: AST(SGOT) 371 U/L (15-37); Alanine Aminotransfer ALT/SGPT 371 U/L (16-61); Alkaline Phosphatase 135 U/L (45-117); Anion Gap 16 (5-15); BUN 9 mg/dL (7-18); BUN/Creat Ratio 9.8 RATIO (10-20); Bilirubin, Direct 0.34 mg/dL (0.00-0.30); Calcium,Total 8.3 mg/dL (8.5-10.1); Chloride 95 mmol/L (98-107); Creatinine, Serum 0.91 mg/dL (0.70-1.30); EST Glomerular Filtration Rate 92 mL/min (>60); Est Glom Filt Rate - Afr Amer 111 mL/min (>60); Estimated Creatinine Clearance 96.93 ml/min; Globulin 3.3 g/dL (2.2-4.2); Glucose 120 mg/dL (74-106); Potassium 3.7 mmol/L (3.5-5.1); Protein, Total 7.3 g/dL (6.4-8.2); Sodium Level 134 mmol/L (136-145)
[2022-08-21 05:21] LABS: Partial Thromboplast Time 27.8 Seconds (24.1-36.2); Prothrombin Time (Protime)PT. 12.4 SECONDS (11.7-14.9)
--- NOTE | 2022-08-21 05:55 | PCM.HP.STD ---
HPI - General General Date of Admission: 08/21/22 Date of Service: 08/21/22 Chief Complaint: Alcohol withdrawal HPI Narrative The patient is a 52 y/o M w/ PMHx: HTN, Anxiety and Depression/OCD, Tobacco use, Hx prior Polysubstance abuse including methamphetamine, Hx EtOH associated transaminitis who presents to the [facility] ED on 08/21/22 with history of 2 admissions over the last month for alcohol treatment and unfortunately following sobriety immediate return to heavy alcohol intake reportedly found by police and is apartment with several abrasions and bloody apparently falling several times secondary to severe intoxication prompting transition to the ED for evaluation. Patient's brother eventually presented and strongly encourage patient to consider treatment. Patient at this point requesting repeat detoxification treatment. In the ED patient eventually with onset of tremors and alcohol withdrawal symptoms including nausea, significant tremors and agitation as well as tactile disturbances. He reports general aching and discomfort following his recent falls but cannot recall any of the events. He does not recall his last alcoholic intake. He reports normally drinking at least a half a gallon of whiskey 80 proof daily. Work-up in the ED included T98.9, heart rate 108, BP 156/89, respiratory rate 15, 95% on room air, CBC with WC 6.9, hemoglobin 14.3, platelet 225 without marked shift, unremarkable coags, CMP with sodium 134, chloride 95, anion gap 16, glucose 120, T bili 0.90, direct bilirubin 0.34, AST/ALT 371/371, alk phos 135, ethyl alcohol level 183, CT the brain with no acute intracranial finding, CT cervical spine with degenerative changes with slight reversal of cervical lordosis due to positioning or muscle spasm, CT maxillofacial with no acute facial bone fracture identified, chest x-ray with no acute cardiopulmonary findings, CT abdomen pelvis given concern for trauma obtained and final read is pending upon evaluation of patient. In the ED patient ministered normal saline bolus, Toradol 30 mg IV x1, Ativan 1 mg IV x1 as well as phenobarbital 97.2 mg p.o. x1. [facility] Medical History Admitted to alcohol detoxification center [facility] (acute kidney injury) Alcohol abuse Anxiety Depression Desire for detoxification ETOH abuse History of foot fracture HTN (hypertension) Jaundice due to hepatitis Methamphetamine abuse OCD (obsessive compulsive disorder) Smoker Tobacco use Transaminitis Home Medications trazodone 150 mg tablet 300 mg PO QHS PRN Sleep 30 days #60 tabs 05/11/18 [Rx Last Taken 3 Days Ago ~05/19/22] buspirone 15 mg tablet 10 mg PO TID depression 05/22/22 [History Last Taken Unknown] gabapentin 300 mg capsule 300 mg PO QHS sleep 05/22/22 [History Last Taken Unknown] fluvoxamine 100 mg tablet 150 mg PO BID OCD 08/04/22 [History Last Taken Unknown] amlodipine 5 mg tablet 5 mg PO DAILY 08/21/22 [History Last Taken Unknown] Allergy/AdvReac Type Severity Reaction Status Date / Time amoxicillin AdvReac Upset Verified 08/11/22 19:16 Stomach Family History Mother No problems noted. Father CAD (coronary artery disease) Heart disease Myocardial infarction Surgical History S/P herniorrhaphy Social History (Updated 08/21/22 @ 06:[address] Orly Rasmussen MD) household members: significant other housing: apartment Smoking Status: Former smoker how long ago did patient quit smoking: Notes quit tobacco use ~ 2 weeks prior to current presentation. alcohol intake: current details: 1/2 gallon whiskey 80 proof daily. substance use type: former substance user Date of last use: Prior history of use, methamphetamine noted prior. ROS ROS Narrative Admission Review of Systems: CONSTITUTIONAL: No weight loss, fever, chills, + weakness or fatigue. HEENT: Eyes: No visual loss, blurred vision, double vision or yellow sclerae. Ears, Nose, Throat: No hearing loss, sneezing, congestion, runny nose or sore throat. SKIN: + Abrasions and staged ecchymoses especially to the face. CARDIOVASCULAR: No chest pain, chest pressure or chest discomfort, palpitations, edema, orthopnea, syncopal events. RESPIRATORY: No shortness of breath, cough or sputum, wheezing, hemoptysis. GASTROINTESTINAL: + anorexia, nausea without vomiting, No diarrhea, abdominal pain, melena, BRBPR. GENITOURINARY: No dysuria, frequency, urgency or retention. NEUROLOGICAL: + headache, tremors, tactile disturbances, No dizziness, syncope, paralysis, numbness or tingling in the extremities, focal weakness, change in bowel or bladder control, seizure. MUSCULOSKELETAL: + muscle, back pain, joint pain or stiffness. HEMATOLOGIC: No anemia, bleeding or bruising. LYMPHATICS: No enlarged nodes. No history of splenectomy. PSYCHIATRIC:+ history of depression or anxiety. ENDOCRINOLOGIC: No reports of sweating, cold or heat intolerance. No polyuria or polydipsia. ALLERGIES: No history of asthma, hives, eczema or rhinitis. Vital Signs Vital Signs Vital Signs: 08/21/22 04:15 08/21/22 05:14 Temperature 96.7 F L 98.9 F Temperature Source Temporal Temporal Pulse Rate 124 H 108 H Respiratory Rate 18 15 Blood Pressure 153/93 H 156/89 H Blood Pressure Mean 113 111 Pulse Ox 97 95 Oxygen Delivery Method Room Air Room Air Weight Weight: 195 lb 12.328 oz Body Mass Index (BMI) 28.0 Physical Exam Narrative Physical Examination: General: Awake, alert, oriented to self, place and recent events, remains cooperative but is agitated and extremely tremulous with significant withdrawal onset now Skin: Normal color, normal turgor, no icterus, no cyanosis except for staged ecchymoses and abrasions especially the face. HEENT: Abrasions and ecchymoses to the face status post recent fall/NC, still some crusted dried blood to the face, EOMI, PERRLA, dry MM, no carotid bruits or JVD noted. Lungs: Mildly diminished, greater bases, appropriate effort, no rales, ronchi or wheezing. Heart: Tachycardic with regular rhythm; no gallop, rub audible. Abdomen: Soft, NTTP, ND, normal BS, positive HM. Extremities: No cyanosis, clubbing, or edema. Neurological: Patient awake, alert, oriented as noted, cognitive function likely baseline although beginning to significant withdrawal; pupils equally reactive to light and accommodation, cranial nerves grossly normal, moving all 4 extremities, no focal deficits, strength moderately globally decreased secondary to acute withdrawal, extremely tremulous, agitated. Psychiatric: Affect appears agitated, anxious, no acute evidence of depressive feelings but does have underlying history concurrently. Results Lab / Micro Data Result Diagrams: 08/21/22 04:40 08/21/22 04:40 Labs: Laboratory Results - last 24 hr 08/21/22 04:40: WBC 6.9, RBC 4.28 L, Hgb 14.3, Hct 39.6 L, MCV 92.5, MCH 33.4 H, MCHC 36.1 H, RDW Std Deviation 50.6 H, RDW Coeff of [place] 15.1 H, Plt Count 225, MPV 8.8, Immature Gran % (Auto) 0.900, Neut % (Auto) 59.9, Lymph % (Auto) 20.9, [place] % (Auto) 15.4 H, Eos % (Auto) 2.2, Baso % (Auto) 0.7, Absolute Neuts (auto) 4.2, Absolute Lymphs (auto) 1.45, Nucleated RBC % 0 08/21/22 04:40: PT 12.4, INR 1.0, APTT 27.8 08/21/22 04:40: Sodium 134 L, Potassium 3.7, Chloride 95 L, Carbon Dioxide 23.0, Anion Gap 16 H, BUN 9, Creatinine 0.91, Estim Creat Clear Calc 96.93, Est GFR (MDRD) Af Amer 111, Est GFR (MDRD) Non-Af 92, BUN/Creatinine Ratio 9.8 L, Glucose 120 H, Calcium 8.3 L, Total Bilirubin 0.90, Direct Bilirubin 0.34 H, AST 371 H, ALT 371 H, Alkaline Phosphatase 135 H, Total Protein 7.3, Albumin 4.0, Globulin 3.3 08/21/22 04:40: Ethyl Alcohol 183.[address] 08/21/22 04:28 IMPRESSION: Normal unenhanced CT scan of the brain. Electronically Signed: Yuki Perez MD at 5:23 EST , Cervical Spine CT 08/21/22 04:28 IMPRESSION: Cervical degenerative changes. Slight reversal of cervical lordosis due to positioning or muscle spasm. No acute fracture or subluxation. Electronically Signed: John Leonardo MD at 5:43 EST , Facial/Sinus 08/21/22 04:28 IMPRESSION: No acute facial bone fracture identified. Electronically Signed: John Leonardo MD at 5:46 EST , Chest X-Ray 08/21/22 04:30 IMPRESSION: No radiographic evidence of acute cardiopulmonary disease. Electronically Signed: John Leonardo MD at 5:31 EST , Assessment & Plan Assessment/Plan (1) Alcohol withdrawal: PLAN: Plan The patient is a 52 y/o M w/ PMHx: HTN, Anxiety and Depression/OCD, Tobacco use, Polysubstance abuse including methamphetamine, Hx EtOH associated transaminitis who presents to the [facility] ED on 08/21/22 with history of 2 admissions over the last month for alcohol treatment and unfortunately following sobriety immediate return to heavy alcohol intake reportedly found by police and is apartment with several abrasions and bloody apparently falling several times secondary to severe intoxication prompting transition to the ED for evaluation. #1. Acute EtOH Withdrawal with associated acute alcoholic transaminitis/hepatitis: Will admit to [place], routine labs obtained in the ED with elevated LFTs similar to prior presentations. Given current ongoing interest in sobriety, will initiate and continue on protocol with taper course of Phenobarbital, scheduled gabapentin for seizure prophylaxis, as needed Catapres, Bentyl, Vistaril, IV fluids, IV antiemetics, Tylenol as needed for pain. Will consult Case management for assistance for transition to next level of rehabilitation care. Mag, phos pending. Maintain on CIWA protocol concurrently. #2. Mechanical falls, no obvious current acute trauma: Given concerns for unclear trauma significant imaging obtained per ED including CT of the brain, cervical spine, maxillofacial all without acute findings however CT abdomen pelvis is pending upon requested evaluation of patient. If any acute intra-abdominal findings result patient instead may need to be evaluated by surgery or transferred. Will maintain on fall precautions. #3. Anxiety and depression/OCD: We will continue patient home buspirone, fluvoxamine as well as trazodone regimen. #4. Hypertension: Previously had been prescribed amlodipine, will resume given BP above goal, as needed IV hydralazine. #5. Polysubstance abuse: Patient with history of noted methamphetamine abuse, UDS requested and pending, will obtain HIV and hepatitis panel to be cautious. #6. Tobacco Abuse: Encouraged cessation, inpatient consultation per RT, NR if desired. #7. DVT prophylaxis: Low risk given current presentation, encourage ambulation once withdrawal symptoms are improved and patient can ambulate safely. Charges/Coding Visit Charges Inpatient E&M: 11591 Init Hosp L3
--- NOTE | 2022-08-21 06:56 | NURSING ---
med surg white alcohol detox
[2022-08-21] MEDS: LORazepam 2 MG/ML Syringe IV ×3 (07:47→20:12)
[2022-08-21 08:27] LABS: CPK Total, Creatine Kinase 693 U/L (39-308); Magnesium 1.8 mg/dL (1.6-2.6); Phosphorus 2.3 mg/dL (2.5-4.9)
[2022-08-21 09:05] LABS: HIV - WCH Non-Reactive (Nonreactive)
--- NOTE | 2022-08-21 09:56 | CM.ED ---
SW Note SW was advised patient is being admitted for [facility]AMP program. GONZALEZ spoke to Chai, Addiction Therapist. Updated that patient is in the ED for detox. Chai provided history. Due to patient's current withdrawl symptoms outreach and education social worker unable to meet with him at the time. Addiction Therapist to follow up with patient. Kym VOGEL
[2022-08-21] MEDS: Lactated Ringers 1,000 ML 125 ML IV (13:18)
[2022-08-21] MEDS: amLODIPine 5 MG Tablet PO (13:26)
[2022-08-21] MEDS: Folic Acid 1 MG Tablet PO (13:26)
[2022-08-21] MEDS: Phenobarbital 32.4 MG Tablet PO ×3 (13:27→22:10)
[2022-08-21] MEDS: Gabapentin 300 MG Capsule PO ×2 (13:27→22:12)
[2022-08-21] MEDS: Famotidine 20 MG Tablet PO ×2 (13:27→22:12)
[2022-08-21 13:28] LABS: Hepatitis B Surface Antibody Non-Reactive; Hepatitis B Surface Antigen Non-Reactive (Nonreactive); Hepatitis C Antibody Non-Reactive (Nonreactive)
[2022-08-21] MEDS: Methocarbamol 750 MG Tablet PO ×2 (13:28→22:13)
[2022-08-21] MEDS: Acetaminophen 325 MG Tablet 650 MG PO (13:28)
[2022-08-21] MEDS: Ibuprofen 600 MG Tablet PO (13:28)
[2022-08-21] MEDS: hydrOXYzine PAM 25 MG Capsule 50 MG PO (13:29)
[2022-08-21] MEDS: LORazepam 1 MG Tablet 2 MG PO ×2 (13:30→16:23)
--- NOTE | 2022-08-21 13:50 | PCM.PN.HOSP ---
Subjective Subjective Patient was admitted early this morning for alcohol detox. This is his third admission this month. He has had admissions from 07/06/2022 through 07/09/2022 and then 08/11/2022 through 08/15/2022. He was evidently brought in by the squad for alcohol intoxication. He started drinking right when he left the hospital. The police were called on the night of admission and he was found stumbling around in his home. He had fallen and had bruises and abrasions in various stages of healing. Patient does not remember when his last drink was. Patient indicated he want help with detox and was told he will need admitted to an inpatient rehab facility after discharge. Was admitted early this morning. Objective Data Objective Data Vital Signs: Vital Signs Temp Pulse Resp BP Pulse Ox O2 Del Method 98.6 F 115 H 18 124/81 H 96 Room Air 08/21/22 13:04 08/21/22 13:04 08/21/22 13:04 08/21/22 13:04 08/21/22 13:04 08/21/22 13:04 Oxygen Delivery Method Room Air Weight: 67.2 kg Body Mass Index (BMI) 21.2 Intake & Output: Intake and Output for Last 24 Hours 08/19/22 08/20/22 08/21/22 23:59 23:59 23:59 Intake Total 1000 / 1000 Balance 1000 / 1000 Lab / Micro Data Result Diagrams: 08/21/22 04:40 08/21/22 04:40 Labs: Laboratory Results - last 24 hr 08/21/22 04:40: WBC 6.9, RBC 4.28 L, Hgb 14.3, Hct 39.6 L, MCV 92.5, MCH 33.4 H, MCHC 36.1 H, RDW Std Deviation 50.6 H, RDW Coeff of [place] 15.1 H, Plt Count 225, MPV 8.8, Immature Gran % (Auto) 0.900, Neut % (Auto) 59.9, Lymph % (Auto) 20.9, [place] % (Auto) 15.4 H, Eos % (Auto) 2.2, Baso % (Auto) 0.7, Absolute Neuts (auto) 4.2, Absolute Lymphs (auto) 1.45, Nucleated RBC % 0 08/21/22 04:40: PT 12.4, INR 1.0, APTT 27.8 08/21/22 04:40: Sodium 134 L, Potassium 3.7, Chloride 95 L, Carbon Dioxide 23.0, Anion Gap 16 H, BUN 9, Creatinine 0.91, Estim Creat Clear Calc 96.93, Est GFR (MDRD) Af Amer 111, Est GFR (MDRD) Non-Af 92, BUN/Creatinine Ratio 9.8 L, Glucose 120 H, Calcium 8.3 L, Total Bilirubin 0.90, Direct Bilirubin 0.34 H, AST 371 H, ALT 371 H, Alkaline Phosphatase 135 H, Total Protein 7.3, Albumin 4.0, Globulin 3.3 08/21/22 04:40: Ethyl Alcohol 183.0 08/21/22 07:55: Phosphorus 2.3 L, Magnesium 1.8, Total Creatine Kinase 693 H 08/21/22 07:55: HIV 1&2 Antibody Non-Reactive 08/21/22 07:55: Hep Bs Antigen Non-Reactive, Hep Bs Antibody Non-Reactive, Hepatitis C Antibody Non-Reactive Radiography Diagnostic Testing: Radiology Impression Brain CT 08/21/22 04:28 IMPRESSION: Normal unenhanced CT scan of the brain. Electronically Signed: Yuki Perez MD at 5:23 EST , Cervical Spine CT 08/21/22 04:28 IMPRESSION: Cervical degenerative changes. Slight reversal of cervical lordosis due to positioning or muscle spasm. No acute fracture or subluxation. Electronically Signed: John Leonardo MD at 5:43 EST , Facial/Sinus 08/21/22 04:28 IMPRESSION: No acute facial bone fracture identified. Electronically Signed: John Leonardo MD at 5:46 EST , Abdomen/Pelvis CT 08/21/22 04:30 IMPRESSION: Enlarged fatty liver. Nonobstructing bilateral renal calculi. No obstructing ureteral stone or hydronephrosis. Minimal bruising within the subcutaneous fat of the right flank. No acute fracture. No acute intra-abdominal abnormality. Electronically Signed: John Leonardo MD at 5:57 EST , Chest X-Ray 08/21/22 04:30 IMPRESSION: No radiographic evidence of acute cardiopulmonary disease. Electronically Signed: John Leonardo MD at 5:31 EST , Assessment & Plan Assessment/Plan (1) Alcohol withdrawal: (2) Desire for detoxification: (3) Alcoholic hepatitis: (4) Alcohol abuse: PLAN: Plan Acute alcohol withdrawal -Continue phenobarbital taper -Call level [phone] on admission -Thiamine and folate -CIWA with as needed Ativan -Continue supportive medications -Strongly recommend discharge to residential treatment if possible -180 pending Acute alcoholic hepatitis -Transaminitis related to alcohol use -Had improved after last admission but up again with resumption of drinking Mechanical falls -Likely secondary to intoxication -All imaging was unremarkable -We will reassess when patient is sober Polysubstance abuse -History of methamphetamine abuse as well -HIV and hepatitis panels ordered on admission and all are nonreactive -Does not appear that he is vaccinated against hepatitis B as his antibody is negative Hypertension -Continue amlodipine Tobacco abuse -Recommend cessation -Nicotine patch if needed Anxiety/depression/OCD -Continue home medications DVT prophylaxis -Low risk -Encourage ambulation CODE STATUS -Full code is verified on presentation
[2022-08-21] MEDS: fluvoxaMINE Maleate 50 MG Tablet 150 MG PO ×2 (16:15→22:11)
[2022-08-21] MEDS: busPIRone 15 MG TABLET 10 MG PO ×2 (16:16→22:09)
[2022-08-21] MEDS: Thiamine Hydrochloride 100 MG Tablet PO (16:16)
[2022-08-21] MEDS: 0.9% Saline Lock 10 ML Syringe IV (20:13)
[2022-08-21] MEDS: traZODone 100 MG Tablet 300 MG PO (22:13)
[2022-08-22] VITALS (8 sets, daily range): BP systolic 108–144; BP diastolic 59–85; PULSE 90–109; RESP 16; TEMP 36.3–37.2; O2SAT 94–98
--- NOTE | 2022-08-22 02:00 | NURSING ---
Report given to KAHLIL Blanton at this time. Relinquished care of pt at this time.
[2022-08-22] MEDS: Phenobarbital 32.4 MG Tablet PO ×6 (02:25→20:31)
[2022-08-22] MEDS: busPIRone 15 MG TABLET 10 MG PO ×3 (05:56→21:58)
[2022-08-22 09:15] LABS: CPK Total, Creatine Kinase 250 U/L (39-308)
[2022-08-22] MEDS: amLODIPine 5 MG Tablet PO (09:36)
[2022-08-22] MEDS: Famotidine 20 MG Tablet PO ×2 (09:36→21:58)
[2022-08-22] MEDS: Folic Acid 1 MG Tablet PO (09:37)
[2022-08-22] MEDS: Na Biphos/Potassium Phosphate PACKET 1 PACKET PO ×2 (09:37→21:58)
[2022-08-22] MEDS: Thiamine Hydrochloride 100 MG Tablet PO (09:37)
[2022-08-22] MEDS: fluvoxaMINE Maleate 50 MG Tablet 150 MG PO ×2 (09:37→21:58)
[2022-08-22] MEDS: Ibuprofen 600 MG Tablet PO ×2 (09:43→20:32)
[2022-08-22] MEDS: Methocarbamol 750 MG Tablet PO ×2 (09:43→16:34)
--- NOTE | 2022-08-22 11:23 | ADDICTION ---
TW met with patient to complete addiction assessments. PT currently is not reporting that he wants any type of treatment. He reports that he knows he needs to stop but has ambivalence on making changes. TW informed pt that she would be back tomorrow to discuss treatment options.
--- NOTE | 2022-08-22 12:15 | CHAPLAIN ---
Type of Pastoral Visit _x__ Initial Visit ___ Follow-up Visit ___ On-call Visit ___ General Patient Visit ___ Spiritual Assessment ___ Family Conference ___ Bereavement ___ Rapid Response ___ Code Blue ___ Other (describe below) Pastoral Care Referral From _x__ Patient ___ Family ___ Nurse ___ Physician ___ [employer] Engineer Sergeant ___ Field Installation Technician ___ Other (describe below) Sacrament/Intervention _x__ Active listening ___ Anointing ___ Latter Day ___ Bereavement ___ Communion _x__ Radha exploration ___ _x__ Life review _x__ Prayer ___ Reconciliation ___ Sacrament of Sick _x__ Supportive presence ___ Wedding ___ Other (describe below) Pastoral Comments patient is awake and sitting up in bed at this time; pt states that he is really struggling with his alcohol problem; affirmed pt that he is here to get the help needed; pt states he is hoping to have residential treatment; pt identifies himself as a Denominational but not following the Lord very well; pt states that his girlfriend is supportive; pt says that he is better when he works every day but now he has lost his job; pt says he enjoys fishing and working out; pt open to supportive presence and prayer
[2022-08-22] MEDS: Acetaminophen 325 MG Tablet 650 MG PO (13:08)
--- NOTE | 2022-08-22 15:37 | PN.HOSP_ITS ---
Subjective Subjective Patient complains of diffuse body pain. No other significant plaints. States he is agreeable to residential treatment. We talked about how he had 3 failures this month where he immediately leaves and starts drinking once he leaves the hospital and that residential treatment would be optimal. He voiced jamesan alejandra and seemed to be agreeable. Objective Data Objective Data Vital Signs: Vital Signs Temp Pulse Resp BP Pulse Ox O2 Del Method 97.6 F L 92 16 123/76 H 94 Room Air 08/22/22 13:11 08/22/22 13:11 08/22/22 13:11 08/22/22 13:11 08/22/22 13:11 08/22/22 13:11 Oxygen Delivery Method Room Air Weight: 68.2 kg Body Mass Index (BMI) 21.2 Intake & Output: Intake and Output for Last 24 Hours 08/20/22 08/21/22 08/22/22 23:59 23:59 23:59 Intake Total 1391.67 / 1391.67 Balance 1391.67 / 1391.67 Lab / Micro Data Result Diagrams: 08/21/22 04:40 08/21/22 04:40 Labs: Laboratory Results - last 24 hr 08/22/22 08:25: Total Creatine Kinase 250 Physical Exam Narrative Physical Examination: General: Awake, alert, oriented to self, place and recent events, remains cooperative but is agitated and extremely tremulous with significant withdrawal onset now Skin: Normal color, normal turgor, no icterus, no cyanosis except for staged ecchymoses and abrasions especially the face. HEENT: Abrasions and ecchymoses to the face status post recent fall/NC, still some crusted dried blood to the face, EOMI, PERRLA, dry MM, no carotid bruits or JVD noted. Lungs: Mildly diminished, greater bases, appropriate effort, no rales, ronchi or wheezing. Heart: Tachycardic with regular rhythm; no gallop, rub audible. Abdomen: Soft, NTTP, ND, normal BS, positive HM. Extremities: No cyanosis, clubbing, or edema. Neurological: Patient awake, alert, oriented as noted, cognitive function likely baseline although beginning to significant withdrawal; pupils equally reactive to light and accommodation, cranial nerves grossly normal, moving all 4 e xtremities, no focal deficits, strength moderately globally decreased secondary to acute withdrawal, extremely tremulous, agitated. Psychiatric: Affect appears agitated, anxious, no acute evidence of depressive feelings but does have underlying history concurrently. Const alert, oriented x3 and no apparent distress Constitutional Narrative: Middle-aged white male lying in bed, appears older than stated age, sleeping at the time my arrival however complains of diffuse body pain after I awaken him, nontoxic HEENT moist oral mucous membranes HEENT Narrative: Abrasions on face Head and Scalp: normocephalic Resp normal respiratory effort, no retractions and no use of accessory muscles Resp Narrative: Diminished but clear Auscultation: Negative for crackles, rhonchi or wheezes Cardio regular rate, regular rhythm, S1 normal heart sound, S2 normal heart sound, no murmurs, no rub, no gallops, no clicks and no JVD GI normal to inspection, nondistended, normoactive bowel sounds, soft to palpation and non-tender Extremity no clubbing, cyanosis or edema Extremity Narrative: Multiple scattered abrasions and ecchymosis Neuro oriented x3, moves all extremities and no focal motor deficits Speech: speech normal Assessment & Plan Assessment/Plan (1) Alcohol withdrawal: (2) Desire for detoxification: (3) Alcohol abuse: (4) Alcoholic hepatitis: (5) Rhabdomyolysis: PLAN: Plan Acute alcohol withdrawal -Continue phenobarbital taper -Alcohol level 183 on admission -Thiamine and folate -CIWA with as needed Ativan -Continue supportive medications -Strongly recommend discharge to residential treatment if possible -180 has evaluated and will reevaluate tomorrow Acute alcoholic hepatitis -Transaminitis related to alcohol use -Had improved after last admission but up again with resumption of drinking Mild rhabdomyolysis -CK elevated at approximately 600 on admission -Resolved Mechanical falls -Likely secondary to intoxication -All imaging was unremarkable Polysubstance abuse -History of methamphetamine abuse as well -HIV and hepatitis panels ordered on admission and all are nonreactive -Does not appear that he is vaccinated against hepatitis B as his antibody is negative Hypertension -Continue amlodipine -Pressures are stable Tobacco abuse -Recommend cessation -Nicotine patch if needed Anxiety/depression/OCD -Continue home medications DVT prophylaxis -Low risk -Encourage ambulation CODE STATUS -Full code is verified on presentation Charges/Coding Visit Charges Inpatient E&M: 34898 Subs Hosp L2
[2022-08-22] MEDS: LORazepam 1 MG Tablet 2 MG PO (20:55)
[2022-08-22] MEDS: NYSTATIN 500,000 UNIT/5 ML UDC 500000 UNIT PO (21:59)
[2022-08-22] MEDS: traZODone 100 MG Tablet 300 MG PO (22:05)
[2022-08-22] MEDS: Gabapentin 300 MG Capsule PO (22:05)
[2022-08-22] MEDS: Loperamide 2 MG Capsule PO (23:34)
[2022-08-23] VITALS (8 sets, daily range): BP systolic 123–144; BP diastolic 79–95; PULSE 76–106; RESP 16–18; TEMP 36.6–37; O2SAT 94–98
[2022-08-23] MEDS: Phenobarbital 32.4 MG Tablet PO ×6 (01:04→20:00)
[2022-08-23] MEDS: Methocarbamol 750 MG Tablet PO ×3 (01:04→17:42)
[2022-08-23] MEDS: busPIRone 15 MG TABLET 10 MG PO ×3 (05:11→21:56)
[2022-08-23] MEDS: Thiamine Hydrochloride 100 MG Tablet PO (10:38)
[2022-08-23] MEDS: fluvoxaMINE Maleate 50 MG Tablet 150 MG PO ×2 (10:38→21:56)
[2022-08-23] MEDS: Folic Acid 1 MG Tablet PO (10:38)
[2022-08-23] MEDS: amLODIPine 5 MG Tablet PO (10:38)
[2022-08-23] MEDS: Famotidine 20 MG Tablet PO ×2 (10:38→21:57)
[2022-08-23] MEDS: NYSTATIN 500,000 UNIT/5 ML UDC 500000 UNIT PO ×4 (10:39→21:56)
[2022-08-23] MEDS: Na Biphos/Potassium Phosphate PACKET 1 PACKET PO (10:39)
[2022-08-23] MEDS: Ibuprofen 600 MG Tablet PO ×2 (10:47→19:59)
--- NOTE | 2022-08-23 16:31 | PCM.PN.HOSP ---
Subjective Subjective Patient only complains of diffuse body pain. No significant diarrhea, tremor, nausea or vomiting. Appears comfortable. Objective Data Objective Data Vital Signs: Vital Signs Temp Pulse Resp BP Pulse Ox O2 Del Method 98.6 F 99 16 130/79 H 98 Room Air 08/23/22 14:14 08/23/22 14:14 08/23/22 14:14 08/23/22 14:14 08/23/22 14:14 08/23/22 14:14 Oxygen Delivery Method Room Air Weight: 69.1 kg Body Mass Index (BMI) 21.2 Intake & Output: Intake and Output for Last 24 Hours 08/21/22 08/22/22 08/23/22 23:59 23:59 23:59 Intake Total 1391.67 / 1391.67 500 / 500 Balance 1391.67 / 1391.67 500 / 500 Lab / Micro Data Result Diagrams: 08/21/22 04:40 08/21/22 04:40 Physical Exam Const alert, oriented x3 and no apparent distress Constitutional Narrative: Middle-aged white male lying in bed, appears older than stated age, sleeping at the time my arrival but awakens easily, nontoxic HEENT moist oral mucous membranes HEENT Narrative: Abrasions noted on nose and forehead-no drainage or signs of infection Head and Scalp: normocephalic Resp normal respiratory effort, no retractions and no use of accessory muscles Resp Narrative: Diminished but clear Auscultation: Negative for crackles, rhonchi or wheezes Cardio regular rate, regular rhythm, S1 normal heart sound, S2 normal heart sound, no murmurs, no rub, no gallops, no clicks and no JVD GI normal to inspection, nondistended, normoactive bowel sounds, soft to palpation and non-tender Extremity no clubbing, cyanosis or edema Extremity Narrative: Multiple scattered abrasions and ecchymosis Neuro oriented x3, moves all extremities and no focal motor deficits Speech: speech normal Psych Psych Narrative: Affect is flat Assessment & Plan Assessment/Plan (1) Alcohol withdrawal: (2) Desire for detoxification: (3) Alcohol abuse: (4) Alcoholic hepatitis: (5) Rhabdomyolysis: PLAN: Plan Acute alcohol withdrawal -Continue phenobarbital taper -Alcohol level 183 on admission -Thiamine and folate -CIWA with as needed Ativan -Continue supportive medications -Strongly recommend discharge to residential treatment if possible -180 has evaluated and patient is somewhat indifferent on his discharge planning however he still not insured under Medicaid which is pending and therefore is unable to be admitted to a residential program. Once he stabilized the plan will be for discharge home and follow-up at 180--> I highly suspect he will go back to drinking however to get him placed we need to have him ensured and he delayed the process unfortunately Acute alcoholic hepatitis -Resolving Mild rhabdomyolysis -Resolved Mechanical falls -Likely secondary to intoxication -All imaging was unremarkable Polysubstance abuse -History of methamphetamine abuse as well -HIV and hepatitis panels ordered on admission and all are nonreactive -Does not appear that he is vaccinated against hepatitis B as his antibody is negative Hypertension -Continue amlodipine -Pressures are stable Tobacco abuse -Recommend cessation -Nicotine patch if needed Anxiety/depression/OCD -Continue home medications DVT prophylaxis -Low risk -Encourage ambulation CODE STATUS -Full code is verified on presentation Charges/Coding Visit Charges Inpatient E&M: 76251 Subs Hosp L2
[2022-08-23] MEDS: hydrOXYzine PAM 25 MG Capsule 50 MG PO (17:42)
[2022-08-23] MEDS: Gabapentin 300 MG Capsule PO (22:00)
[2022-08-23] MEDS: Loperamide 2 MG Capsule PO (22:27)
[2022-08-24 01:05] VITALS: BP 149/88; PULSE 99; RESP 18; O2SAT 94
[2022-08-24] MEDS: traZODone 100 MG Tablet 300 MG PO (01:07)
[2022-08-24] MEDS: Methocarbamol 750 MG Tablet PO ×2 (01:07→10:09)
[2022-08-24] MEDS: hydrOXYzine PAM 25 MG Capsule 50 MG PO ×2 (01:07→10:09)
[2022-08-24] MEDS: Acetaminophen 325 MG Tablet 650 MG PO (01:11)
[2022-08-24] MEDS: Phenobarbital 32.4 MG Tablet PO ×4 (03:15→20:57)
[2022-08-24] MEDS: busPIRone 15 MG TABLET 10 MG PO ×3 (06:00→20:58)
[2022-08-24 06:06] VITALS: BP 113/70; PULSE 75; RESP 14; TEMP 36.7; O2SAT 95
[2022-08-24 07:16] VITALS: O2SAT 95
[2022-08-24] MEDS: Folic Acid 1 MG Tablet PO (09:16)
[2022-08-24] MEDS: fluvoxaMINE Maleate 50 MG Tablet 150 MG PO ×2 (09:17→20:59)
[2022-08-24] MEDS: Thiamine Hydrochloride 100 MG Tablet PO (09:18)
[2022-08-24 09:37] VITALS: BP 147/68; PULSE 87; RESP 18; TEMP 37.1; O2SAT 97
[2022-08-24] MEDS: NYSTATIN 500,000 UNIT/5 ML UDC 500000 UNIT PO ×4 (09:43→20:59)
[2022-08-24] MEDS: Famotidine 20 MG Tablet PO ×2 (09:44→20:59)
[2022-08-24] MEDS: amLODIPine 5 MG Tablet PO (09:44)
[2022-08-24] MEDS: Ibuprofen 600 MG Tablet PO ×2 (10:09→21:00)
[2022-08-24] MEDS: LORazepam 1 MG Tablet 2 MG PO (10:09)
--- NOTE | 2022-08-24 15:18 | PCM.PN.HOSP ---
Subjective Subjective Patient states he still aches. We discussed that this is likely from his fall is related to his intoxication. He still having some internal tremor. We will monitor and likely discharge home tomorrow. He is unable to be admitted to residential treatment at this time as he has no insurance and as a Medicaid pending application. Once he has Medicaid he will be able to admitted to residential treatment which is recommended. Addiction medicine recommended outpatient follow-up at 180 so that when he does have coverage he will be able to be admitted to residential treatment. Objective Data Objective Data Vital Signs: Vital Signs Temp Pulse Resp BP Pulse Ox O2 Del Method 98.8 F 87 18 147/68 H 97 Room Air 08/24/22 09:37 08/24/22 09:37 08/24/22 09:37 08/24/22 09:37 08/24/22 09:37 08/24/22 09:37 Oxygen Delivery Method Room Air Weight: 70.2 kg Body Mass Index (BMI) 21.2 Intake & Output: Intake and Output for Last 24 Hours 08/22/22 08/23/22 08/24/22 23:59 23:59 23:59 Intake Total 900 / 900 2049 Balance 900 / 900 2049 Lab / Micro Data Result Diagrams: 08/21/22 04:40 08/21/22 04:40 Physical Exam Const alert, oriented x3 and no apparent distress Constitutional Narrative: Middle-aged white male lying in bed, appears older than stated age, sleeping at the time my arrival but awakens easily, nontoxic HEENT moist oral mucous membranes HEENT Narrative: Multiple abrasions on forehead and [id number] and no signs of infection Head and Scalp: normocephalic Resp normal respiratory effort, no retractions and no use of accessory muscles Resp Narrative: Diminished but clear Auscultation: Negative for crackles, rhonchi or wheezes Cardio regular rate, regular rhythm, S1 normal heart sound, S2 normal heart sound, no murmurs, no rub, no gallops, no clicks and no JVD GI normal to inspection, nondistended, normoactive bowel sounds, soft to palpation and non-tender Extremity no clubbing, cyanosis or edema Extremity Narrative: Multiple scattered abrasions and ecchymosis Neuro oriented x3, moves all extremities and no focal motor deficits Speech: speech normal Psych Psych Narrative: Affect is flat Assessment & Plan Assessment/Plan (1) Alcohol withdrawal: (2) Desire for detoxification: (3) Alcohol abuse: (4) Alcoholic hepatitis: (5) Rhabdomyolysis: PLAN: Plan Acute alcohol withdrawal -Continue phenobarbital taper -Alcohol level 183 on admission -Thiamine and folate -CIWA with as needed Ativan -Continue supportive medications -Strongly recommend discharge to residential treatment if possible -180 has evaluated and patient is somewhat indifferent on his discharge planning however he still not insured under Medicaid which is pending and therefore is unable to be admitted to a residential program. Once he stabilized the plan will be for discharge home and follow-up at 180--> I highly suspect he will go back to drinking however to get him placed we need to have him ensured and he delayed the process unfortunately Acute alcoholic hepatitis -Resolved Mild rhabdomyolysis -Resolved Mechanical falls -Likely secondary to intoxication -All imaging was unremarkable Polysubstance abuse -History of methamphetamine abuse as well -HIV and hepatitis panels ordered on admission and all are nonreactive -Does not appear that he is vaccinated against hepatitis B as his antibody is negative Hypertension -Continue amlodipine -Pressures are stable Tobacco abuse -Recommend cessation -Nicotine patch if needed Anxiety/depression/OCD -Continue home medications DVT prophylaxis -Low risk -Encourage ambulation CODE STATUS -Full code is verified on presentation Charges/Coding Visit Charges Inpatient E&M: 65685 Subs Hosp L2
[2022-08-24 15:44] VITALS: BP 118/73; PULSE 84; RESP 18; TEMP 36.6; O2SAT 98
[2022-08-24 19:42] VITALS: BP 137/78; PULSE 98; RESP 16; TEMP 37; O2SAT 97
[2022-08-24 19:53] LABS: Amphetamine Urine VISTA NEGATIVE (<1000 ng/mL); Barbiturate Urine VISTA POSITIVE (< 200 ng/mL); Benzodiazepine Urine VISTA NEGATIVE (< 200 ng/mL); Cocaine Urine VISTA NEGATIVE (< 300 ng/mL); Ecstacy Urine VISTA NEGATIVE (< 500 ng/mL); Methadone Urine VISTA NEGATIVE (< 300 ng/mL); PCP Urine VISTA NEGATIVE (< 25 ng/mL); THC Urine VISTA NEGATIVE (< 50 ng/mL); Vista UDS pH Range 7
[2022-08-24] MEDS: Gabapentin 300 MG Capsule PO (20:59)
[2022-08-25] MEDS: traZODone 100 MG Tablet 300 MG PO (00:33)
[2022-08-25] MEDS: Acetaminophen 325 MG Tablet 650 MG PO ×2 (00:33→11:52)
[2022-08-25] MEDS: Methocarbamol 750 MG Tablet PO ×2 (00:37→08:17)
[2022-08-25] MEDS: Phenobarbital 32.4 MG Tablet PO ×2 (02:21→08:15)
[2022-08-25 02:29] VITALS: BP 113/67; PULSE 75; RESP 16; TEMP 36.4; O2SAT 94
[2022-08-25 02:31] VITALS: BP 113/67; PULSE 75; RESP 16; TEMP 36.4; O2SAT 94
[2022-08-25] MEDS: busPIRone 15 MG TABLET 10 MG PO ×2 (05:14→12:49)
[2022-08-25] MEDS: Folic Acid 1 MG Tablet PO (08:02)
[2022-08-25] MEDS: Thiamine Hydrochloride 100 MG Tablet PO (08:02)
[2022-08-25] MEDS: fluvoxaMINE Maleate 50 MG Tablet 150 MG PO (08:16)
[2022-08-25] MEDS: NYSTATIN 500,000 UNIT/5 ML UDC 500000 UNIT PO (08:16)
[2022-08-25] MEDS: Famotidine 20 MG Tablet PO (08:16)
[2022-08-25] MEDS: amLODIPine 5 MG Tablet PO (08:16)
[2022-08-25] MEDS: Ibuprofen 600 MG Tablet PO (08:16)
[2022-08-25 08:30] VITALS: BP 126/76; PULSE 71; RESP 16; TEMP 36.4; O2SAT 97
[2022-08-25 08:43] VITALS: O2SAT 95
[2022-08-25] MEDS: hydrOXYzine PAM 25 MG Capsule 50 MG PO (11:52)
--- NOTE | 2022-08-25 12:11 | PCM.DC.SUM ---
Providers Date of Admission: 08/21/22 Date of Discharge: 08/25/22 Primary Care Physician: Dr. Dagoberto Mari MD Reason For Visit: ALCOHOL WITHDRAWAL Diagnosis Discharge Diagnosis (1) Alcohol withdrawal: Status: Acute Code(s): F10.939 - Alcohol use, unspecified with withdrawal, unspecified (2) Desire for detoxification: Status: Acute (3) Alcohol abuse: Status: Acute Code(s): F10.10 - Alcohol abuse, uncomplicated (4) Alcoholic hepatitis: Status: Acute Code(s): K70.10 - Alcoholic hepatitis without ascites (5) Rhabdomyolysis: Status: Acute Code(s): M62.82 - Rhabdomyolysis Medications at Discharge Home Medications trazodone 150 mg tablet 300 mg PO QHS PRN Sleep 30 days #60 tabs 05/11/18 buspirone 15 mg tablet 10 mg PO TID depression 05/22/22 gabapentin 300 mg capsule 300 mg PO QHS sleep 05/22/22 fluvoxamine 100 mg tablet 150 mg PO BID OCD 08/04/22 amlodipine 5 mg tablet 5 mg PO DAILY 08/21/22 Hospital Course Operations None Procedures None Summary of Care Provided Minutes Spent on Discharge: 25 Hospital Course: Mr. Gutierrez is a 52-year-old white male who presented to the emergency department at [facility] on 08/21/2022 after being found by the police in his apartment with several abrasions and bleeding. It had appeared that he had fallen several times secondary to severe intoxication which prompted presentation to the emergency department. Patient's brother eventually presented and strongly encouraged the patient to consider inpatient treatment. The patient has had 2 admissions since July 25 for the same with his last discharge being on 08/15/2022. He reports that each time he is discharged she goes home to drink immediately. At these last 2 hospitalizations would strongly encourage inpatient treatment and try to get Medicaid set up for him however he has not followed through with any of this. At the time of admission he did not recall his last alcohol intake and reported that he was drinking at least a half a gallon of whiskey that 80 prove on a daily basis. Work-up in the ED included T98.9, heart rate 108, BP 156/89, respiratory rate 15, 95% on room air, CBC with WC 6.9, hemoglobin 14.3, platelet 225 without marked shift, unremarkable coags, CMP with sodium 134, chloride 95, anion gap 16, glucose 120, T bili 0.90, direct bilirubin 0.34, AST/ALT 371/371, alk phos 135, ethyl alcohol level 183, CT the brain with no acute intracranial finding, CT cervical spine with degenerative changes with slight reversal of cervical lordosis due to positioning or muscle spasm, CT maxillofacial with no acute facial bone fracture identified, chest x-ray with no acute cardiopulmonary findings, CT abdomen pelvis given concern for trauma obtained and final read is pending upon evaluation of patient.? He was admitted to the medical floor and placed on a phenobarbital taper with a [facility] protocol utilizing as needed Ativan. He was also given several as needed medications for symptomatic treatment. Throughout his stay he complained of generalized pain related to his falls however all imaging done on presentation including a chest x-ray, CT scan of the head, C-spine, facial bones, abdomen, and pelvis were all negative for any signs of acute fracture or injury. He was stable throughout his hospital course and met with addiction medicine. As noted above he still has not obtained his Medicaid and will unfortunately not be able to be admitted to an inpatient facility at this point. Addiction medicine has instructed him to closely follow-up in the next week with 180 so they can continue to work on his Medicaid paperwork and once this has been approved he can be admitted for inpatient rehab. This was thoroughly discussed with the patient and we did discuss the importance of prompt follow-up as an outpatient to avoid relapse. He voiced understanding. He was discharged home in stable condition out of withdrawal on 08/25/2022. Discharge diagnoses: Acute alcohol withdrawal Acute alcoholic hepatitis-resolved Rhabdomyolysis-resolved Mechanical falls secondary to intoxication Polysubstance abuse Hypertension Tobacco abuse OCD Anxiety Depression Physical Exam Narrative Patient without any nausea vomiting, diarrhea, tremor. Only complains of aching all over and this seems to be related to his falls he has multiple ecchymosis and healing abrasions Const alert, oriented x3, no apparent distress and average body habitus Constitutional Narrative: Middle-aged white male lying in bed, appears older than stated age, lying in bed but awake and watching television, nontoxic General Appearance: cooperative, comfortable and well kempt Orientation / Consciousness: awake, oriented to person, oriented to place and oriented to time Exam Limitations: no limitations HEENT normocephalic and moist oral mucous membranes HEENT Narrative: Abrasions noted on nose and forehead Resp normal respiratory effort, no retractions and no use of accessory muscles Resp Narrative: Diminished but clear Auscultation: Negative for crackles, rhonchi or wheezes Cardio regular rate, regular rhythm, S1 normal heart sound, S2 normal heart sound, no murmurs, no rub, no gallops, no clicks and no JVD GI normal to inspection, nondistended, normoactive bowel sounds, soft to palpation and non-tender Extremity no clubbing, cyanosis or edema Extremity Narrative: Multiple scattered abrasions and ecchymosis Neuro oriented x3, moves all extremities and no focal motor deficits Speech: speech normal Psych Psych Narrative: Affect is flat Weight / BMI Weight Weight: 68.492 kg Body Mass Index (BMI) 21.2 ABG / Lab / Microbiology Data Result Diagrams: 08/21/22 04:40 08/21/22 04:40 Laboratory: Laboratory Results - last 24 hr 08/24/22 : Urine Opiates Screen NEGATIVE, Urine Methadone Screen NEGATIVE, Ur Barbiturates Screen POSITIVE H, Ur Phencyclidine Scrn NEGATIVE, Ur Amphetamines Screen NEGATIVE, MDMA (Ecstasy) Screen NEGATIVE, U Benzodiazepines Scrn NEGATIVE, Urine Cocaine Screen NEGATIVE, U Cannabinoids Screen NEGATIVE, Ur Drug Screen Comment D/C Instructions Discharge Diet: No restrictions Discharge Activity: Return to Normal Activity Meaningful Use Info Meaningful Use Diagnoses (Choose all that apply): None applicable Discharge Plan Admission Admit Date/Time: 08/21/22 06:00 Primary Reason for Your Visit: Alcohol detox Attending Provider: Faith Arzola Primary Care Provider: Dagoberto Mari Consulting Providers: Orly Rasmussen Instructions Additional Instructions / Restrictions: 1. Please follow-up with 180 this week to get started on an outpatient program and for inpatient placement once insurance situation has been clarified Discharge Orders/Prescriptions Prescriptions: Continued trazodone 150 MG tablet 300 mg PO QHS PRN (Reason: Sleep) 30 Days Qty: 60 0RF buspirone 15 mg tablet 10 mg PO TID Label Comments: TAKE 1 TABLET BY MOUTH THREE TIMES DAILY gabapentin 300 MG capsule 300 mg PO QHS fluvoxamine 100 MG tablet 150 mg PO BID amlodipine 5 mg tablet 5 mg PO DAILY Label Comments: take 1 tablet by mouth once daily Referrals / Follow Up: Dagoberto Mari MD [Primary Care Provider] - Within 1 Week Disposition Disposition (needs filled in before D/C Order can be placed): Home, Self Care Charges/Coding Visit Charges Inpatient E&M: 42130 Disch Hosp
== END 2022-08-25 13:04 | disposition home or self-care (01) | DRG 897 ==
LOC: ED 06:02 → MS2 10:02
PROVIDERS: Admitting Provider Family Medicine; Emergency Provider Emergency Medicine; PCP Family Medicine; Visit Provider Internal Medicine
DX: F10.239 Alcohol dependence with withdrawal, unspecified (principal); M62.82 Rhabdomyolysis; K70.10 Alcoholic hepatitis without ascites; F15.10 Other stimulant abuse, uncomplicated; F17.210 Nicotine dependence, cigarettes, uncomplicated; I10 Essential (primary) hypertension; F41.9 Anxiety disorder, unspecified; Y90.6 Blood alcohol level of 120-199 mg/100 ml; F42.9 Obsessive-compulsive disorder, unspecified; F32.A Depression, unspecified; R29.6 Repeated falls; Z79.899 Other long term (current) drug therapy
CPT/HCPCS: 36415; 70450; 70486; 71046; 72125; 74176; 80048; 80076; 80307; 82077; 82550; 83735; 84100; 85025; 85610; 85730; 86703; 86706; 86803; 87340; 99285; J7030; J7120; A4216

== ENCOUNTER 2022-08-26 19:37 | Observation (INO) | payer MEDICAID, SELFPAY ==
[2022-08-26 19:38] VITALS: PULSE 100; RESP 20; TEMP 36.8; O2SAT 97; BMI 30.7
--- NOTE | 2022-08-26 19:44 | CT_ITS ---
INDICATION: trauma EXAMINATION: CT CERVICAL SPINE - CT Spine Cervical W/O Contrast Injection TECHNIQUE: Helically acquired images were obtained of the cervical spine. 2D reformatted images were reviewed. A radiation dose optimization technique was used for this scan. IV Contrast dosage and agent: None. Radiation Dose (provided by facility) CTDIvol (NA ) mGy, DLP ( NA) mGy-cm COMPARISON: None. FINDINGS: VERTEBRAE: No fracture or traumatic subluxation. No discrete lytic or blastic abnormality. There is a straightening of cervical lordosis. Normal craniocervical junction and cervicothoracic junction. Normal appearance of the odontoid process. DISCS and SPINAL CANAL: Disc spaces are maintained, no disc herniation or canal stenosis. Anterior marginal osteophyte formation at multiple levels. Additional foraminal narrowing due to uncovertebral joint and facet hypertrophic changes greater on the RIGHT than LEFT at C4-5. No critical canal stenosis. NECK SOFT TISSUES: No prevertebral soft tissue swelling. There is no cervical adenopathy. LUNG APICES: Clear. CT/Spine Cervical without Contras IMPRESSION: 1. No evidence of acute cervical spinal fracture or spondylolisthesis. No acutely acquired canal stenosis. 2. Mild cervical spondylosis and chronic foraminal narrowing particularly in the RIGHT at. Electronically Signed: Parrish Huitron MD at 20:48 EST ,
--- NOTE | 2022-08-26 19:44 | CT_ITS ---
INDICATION: AMS EXAMINATION: CT BRAIN - CT Head or Brain W/O Contrast Injection TECHNIQUE: Multiple axial images were obtained of the head without intravenous contrast. A radiation dose optimization technique was used for this scan. IV Contrast dosage and agent: None. RADIATION DOSAGE (If Supplied By Facility): CTDIvol = ( 44.99 ) mGy, DLP = ( 914.22 ) mGycm COMPARISON: 08/21/2022 FINDINGS: HEMISPHERES: 1. The cerebral parenchyma, ventricular system, subarachnoid spaces have normal configuration and density. There is a normal gyral pattern. There is normal peterson/white differentiation. No midline shift.. 2. Minimal microvascular deep white matter changes. 3. No intraparenchymal mass, hemorrhage, or acute territorial infarct. CEREBELLUM - BRAINSTEM: The cerebellum, brainstem, basilar and suprasellar cisterns have normal appearance. No Chiari malformation. PITUITARY: Infundibulum and pituitary have normal configuration. Midline structures appear normal. CSF SPACES: Appropriate for age. No hydrocephalus. Basal cisterns are patent. VESSELS: 1. No significant vascular calcifications in the cavernous carotid vessels. 2. No hyperdense vascular signs noted.. ORBITS AND PARANASAL SINUSES: 1. Normal appearance of the bony orbits. Normal appearance of the globes and retrobulbar soft tissues.. 2. Paranasal sinuses are clear. BONY ELEMENTS: Bony elements of the cranial vault, facial skeleton and skull base have normal appearance. SCALP AND SOFT TISSUES: Normal appearance of the soft tissues of the scalp and the visualized face OTHER: None ASPECTS Score for Acute Strokes: 10 CT/Brain/Head without Contrast IMPRESSION: 1. Stable exam 2. Minimal chronic microvascular deep white matter changes. 3. No intracranial mass, hemorrhage or acute territorial infarct. 4. No radiographically significant sinus disease.. Electronically Signed: Parrish Huitron MD at 20:45 EST ,
--- NOTE | 2022-08-26 19:44 | CT_ITS ---
INDICATION: trauma EXAMINATION: CT ABDOMEN AND PELVIS WITH CONTRAST - CT Chest Abdomen And Pelvis W/ Contrast Injection TECHNIQUE: Helically acquired images were obtained of the abdomen and pelvis following IV contrast. A radiation dose optimization technique was used for this scan. IV Contrast dosage and agent: 100 mL [id number] Oral contrast: None. Radiation Dose (provided by facility) CTDIvol (31.66 ) mGy, DLP ( 2300.98) mGy-cm COMPARISON: 08/21/2022 FINDINGS: CT CHEST: LUNGS: [Minimal dependent basilar atelectasis. Subtle area of interstitial versus groundglass infiltrate in the superior segment of the RIGHT lower lobe. Remaining lung zones clear. No contusion, consolidation or effusion or pneumothorax. PLEURAL SPACES: Unremarkable, no effusion or pneumothorax noted.. HEART: Unremarkable. No pericardial effusion. VASCULATURE: Unremarkable. No aortic aneurysm. MEDIASTINUM AND LYMPH NODES: Unremarkable. No significant adenopathy. CERVICAL THORACIC JUNCTION: There is normal appearance of the visualized airway. No masses or abnormal fluid collections. Visualized thyroid is within normal limits. CT ABDOMEN PELVIS: HEPATOBILIARY: Liver: The liver is homogeneous and shows no evidence of focal lesion. Diffuse fatty infiltration noted. No evidence of hepatic laceration or hemorrhage. Gallbladder: Gallbladder is mildly distended, no calcifications or ductal dilatation. Pancreas: Pancreas is normal size configuration and density. No mass is noted. Spleen: The spleen is homogeneous and normal in size. . No evidence of parenchymal laceration or hemorrhage BOWEL: 1. Stomach: The stomach is normal in size configuration, no evidence of focal masses, abnormal calcifications. No hiatal hernia noted. 2. Bowel: Small and large have normal configuration, no masses or bowel obstruction noted. 3. Appendix: The appendix is not adequately visualized.: GENITOURINARY: Adrenals: Both adrenal glands are normal in size. Kidneys: Kidneys have normal configuration, no evidence of obstructive uropathy. Small nonobstructing LEFT renal calcification is present measuring approximately 3 mm.. Bladder: Normal Pelvic organs: The visualized pelvic organs are normal in size and configuration. No masses or adenopathy noted. RETROPERITONEUM: There is normal appearance of the abdominal aorta and inferior vena cava. No evidence of retroperitoneal or para-aortic masses fluid collections or adenopathy. ANTERIOR ABDOMINAL WALL: Normal, no hernia identified. 1. CHEST ABDOMEN PELVIS - BONES AND BODY WALL SOFT TISSUES: 2. No fractures identified involving the visualized shoulders, clavicles, or sternum. 3. There is mild deformity of anterior RIGHT eighth rib at the level of costochondral junction suspicious of a occult nondisplaced fracture. No other rib deformities identified bilaterally. 4. No fractures identified involving the thoracic spine or lumbar spine 5. No canal stenosis. 6. Normal appearance the sacrum, sacroiliac joints, pelvic ring and hips bilaterally. OTHER: Subtle soft tissue bruising in the subcutaneous soft tissues of the RIGHT flank. No hematoma noted. CT/CT Chest, Abd, Pel w/Contrast IMPRESSION: 1. Mild dependent atelectasis at the lung bases, and subtle interstitial patchy groundglass infiltrate in the superior segment of the RIGHT lower lobe. 2. No consolidation, effusion or pneumothorax. 3. No CT evidence of acute traumatic injury to the great vessels the chest. 4. No evidence of acute traumatic injury to the solid organs of the abdomen and pelvis. 5. No masses bowel obstruction abscess free fluid or free air. 6. Nonobstructing LEFT renal calcification. 7. Subtle deformity of the anterior RIGHT eighth rib, suspicious of occult nondisplaced fracture. No other evidence of bony fractures involving the chest abdomen or pelvis. 8. Subtle soft tissue subcutaneous bruising in the RIGHT flank. No hematoma noted. Electronically Signed: Parrish Huitron MD at 20:58 EST ,
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
[2022-08-26 19:58] LABS: Absolute Lymphocyte Count 2.14 X10^3/uL (0.83-4.51); Absolute Neutrophil Count 2.1 X10^3/uL (2.0-7.7); Basophil# 0.06 X10^3/uL; Basophil% 1.2 % (0-1); Eosinophil# 0.05 X10^3/uL; Hematocrit 44.2 % (40-54); Hemoglobin 15.2 g/dL (13.0-16.5); Lymphocyte # 2.14 X10^3/ul (0.83-4.51); Lymphocyte % 42.3 % (19-41); Mean Corp Hgb Conc 34.4 g/dL (32-36); Mean Corpuscular Hgb 33.3 pg (27.0-32.0); Mean Corpuscular Volume 96.9 fL (80-94); Mean Platelet Vol. 9.2 fl (6.2-12.0); Monocyte# 0.49 X10^3/uL; Monocyte% 9.7 % (0-10); NRBC Flagged by Analyzer 0 % (0-5); Neutrophil # 2.14 X10^3/uL (2.7-7.7); Neutrophil % 42.2 % (47-70); Platelet Count 210 K/mm3 (150-450); RBC Distribution Width CV 16.1 % (11.6-14.6); RBC Distribution Width SD 57.1 fl (35.1-43.9); Red Blood Count 4.56 M/mm3 (4.6-6.2); White Blood Count 5.1 K/mm3 (4.4-11.0)
[2022-08-26 20:01] LABS: Allen Test Positive; Base Excess 2 mmol/L (-2 to +2); Bicarbonate 26.5 mmol/L (22-26); Blood Gas Specimen Type ART; FI02 21; PO2 83 mmHG (75-100); SITE R Radial; SO2 96 % (95-99); Total Carbon Dioxide 28 mmol/L; pCO2 40.4 mmHg (35-45); pH 7.43 (7.35-7.45)
--- NOTE | 2022-08-26 20:05 | RAD_ITS ---
INDICATION: AMS EXAMINATION/TECHNIQUE: X-RAY - XR Chest 1 View COMPARISON: No previous relevant examinations available for comparison.. FINDINGS: Notation: Backboard in place. LIFE-SUPPORT AND LINES: 1. None HEART AND VESSELS: The cardiac silhouette, pulmonary vasculature have normal appearance. No evidence of congestive failure. LUNGS AND PLEURAL SPACES: Shallow inspiration bibasilar atelectasis, no consolidation, no effusion. No pneumothorax. No pulmonary mass is noted. MEDIASTINUM AND HILAR REGIONS: No masses adenopathy noted. No areas of calcification. Visualized upper airway is normal in position. BONY ELEMENTS: No acute bony changes noted. RAD/Chest 1 View (Portable) IMPRESSION: 1. Shallow inspiration basilar atelectasis, no consolidation or effusion. 2. No evidence congestive failure. 3. No acute bony changes. Electronically Signed: Parrish Huitron MD at 20:23 EST ,
[2022-08-26 20:08] LABS: Prothrombin Time (Protime)PT. 13.1 SECONDS (11.7-14.9)
[2022-08-26] MEDS: 0.9% Normal Saline 1,000 ML 1000 ML IV (20:15)
[2022-08-26 20:27] LABS: Lactic Acid 2.1 mmol/L (0.4-1.9)
[2022-08-26 20:30] LABS: Bacteria 0 SEEN /hpf (None Seen); Mucous, Urine 0 SEEN /hpf (<or=2+); Red Blood Cells-Urine 0 SEEN /hpf (0-5); White Blood Cells 0 SEEN /hpf (0-5)
[2022-08-26 20:32] LABS: ALB/GLOB Ratio 0.9 RATIO (0.9-2.4); AST(SGOT) 66 U/L (15-37); Alanine Aminotransfer ALT/SGPT 126 U/L (16-61); Albumin, Serum 3.6 g/dL (3.2-5.0); Alkaline Phosphatase 120 U/L (45-117); Anion Gap 5 (5-15); BUN 7 mg/dL (7-18); BUN/Creat Ratio 7.7 RATIO (10-20); CPK Total, Creatine Kinase 268 U/L (39-308); Chloride 108 mmol/L (98-107); EST Glomerular Filtration Rate 93 mL/min (>60); Est Glom Filt Rate - Afr Amer 113 mL/min (>60); Estimated Creatinine Clearance 98.01 ml/min; Globulin 4.1 g/dL (2.2-4.2); Glucose 97 mg/dL (74-106); Lipase 194 U/L (73-393); Protein, Total 7.7 g/dL (6.4-8.2); Sodium Level 144 mmol/L (136-145); Troponin-I HS 4 pg/mL (3.0-78.0)
[2022-08-26 20:33] LABS: Color, Urine Yellow (Yellow); Glucose, Dipstick Normal (Normal); Ketone-Dipstick Negative (Negative); Leukocyte Esterase-Dipstick Negative /ul (Negative); Nitrite-Dipstick Negative (Negative); Occult Blood-Urine Negative /ul (Negative); Protein-Dipstick Negative (Negative); Urine Bilirubin Dipstick Negative (Negative); Urine Clarity Clear (Clear); Urine Urobilinogen Normal (Normal)
[2022-08-26 20:46] LABS: Squamous Epithelial Cells - UA 0-5 SEEN /hpf (0-5)
[2022-08-26 21:18] LABS: Amphetamine Urine VISTA NEGATIVE (<1000 ng/mL); Barbiturate Urine VISTA POSITIVE (< 200 ng/mL); Benzodiazepine Urine VISTA NEGATIVE (< 200 ng/mL); Cocaine Urine VISTA NEGATIVE (< 300 ng/mL); Ecstacy Urine VISTA NEGATIVE (< 500 ng/mL); Methadone Urine VISTA NEGATIVE (< 300 ng/mL); PCP Urine VISTA NEGATIVE (< 25 ng/mL); THC Urine VISTA NEGATIVE (< 50 ng/mL); Vista UDS pH Range 5
[2022-08-26 21:22] VITALS: BP 105/76; PULSE 96; RESP 20; O2SAT 97
[2022-08-26 22:00] VITALS: BP 141/92; PULSE 102; RESP 22; O2SAT 95
[2022-08-26 23:00] VITALS: BP 134/93; PULSE 111; RESP 20; O2SAT 98
[2022-08-26] MEDS: Ketorolac 15 MG/ML Vial IV (23:24)
[2022-08-26 23:47] LABS: Reflex Lactate? Y
[2022-08-27] VITALS (15 sets, daily range): BP systolic 116–146; BP diastolic 80–98; PULSE 90–115; RESP 16–25; TEMP 36.4–37.3; O2SAT 96–100; BMI 28.0
[2022-08-27 00:53] LABS: Lactic Acid 2.4 mmol/L (0.4-1.9)
--- NOTE | 2022-08-27 01:57 | HP.PCM_ITS ---
HPI - General General Date of Admission: 08/27/22 Date of Service: 08/27/22 Chief Complaint: Alcohol detox/altered level of consciousness HPI Narrative ALTHEA TIERNEY, is a 52 M who presents to the emergency room by squad after being found unresponsive. Patient has a significant history of alcoholism and was found with several empty bottles of liquor around him. He states his last alcohol intake was last evening and he has previously gone through DTs when his alcohol level is in the 200 level. Patient currently denies any chest pain or shortness of breath but remains sluggish to respond appropriately due to his alcohol intoxication. After his previous detoxification he was to be sent to a rehab facility but was discharged to home prior to making that transfer. [facility] Medical History Admitted to alcohol detoxification center [facility] (acute kidney injury) Alcohol abuse Anxiety Depression Desire for detoxification ETOH abuse History of foot fracture HTN (hypertension) Jaundice due to hepatitis Methamphetamine abuse OCD (obsessive compulsive disorder) Smoker Tobacco use Transaminitis Home Medications trazodone 150 mg tablet 300 mg PO QHS PRN Sleep 30 days #60 tabs 05/11/18 [Rx Last Taken 3 Days Ago ~05/19/22] buspirone 15 mg tablet 10 mg PO TID depression 05/22/22 [History Last Taken Unknown] gabapentin 300 mg capsule 300 mg PO QHS sleep 05/22/22 [History Last Taken Unknown] fluvoxamine 100 mg tablet 150 mg PO BID OCD 08/04/22 [History Last Taken Unknown] Allergy/AdvReac Type Severity Reaction Status Date / Time amoxicillin AdvReac Upset Verified 08/26/22 20:08 Stomach Family History Mother No problems noted. Father CAD (coronary artery disease) Heart disease Myocardial infarction Surgical History S/P herniorrhaphy Social History household members: significant other housing: apartment Smoking Status: Current some day smoker tobacco type: cigarettes how long ago did patient quit smoking: Notes quit tobacco use ~ 2 weeks prior t o current presentation. alcohol intake: current details: 08/26 gallon whiskey 80 proof daily. substance use type: former substance user Date of last use: Prior history of use, methamphetamine noted prior. ROS Constitutional Constitutional: Denies chills or fever(s) Eyes Eyes: Denies blurry vision ENT HEENT: Denies abnormal hearing Cardiovascular Cardiovascular: Denies chest pain Respiratory/Chest Respiratory/Chest: Denies cough Gastrointestinal Gastrointestinal: Denies abdominal pain Genitourinary Genitourinary: Denies dysuria Musculoskeletal Musculoskeletal: Denies back pain Integumentary Integumentary: Denies dry skin Neurologic Neurologic: Reports abnormal speech Psychiatric Psychiatric: Denies anxiety Vital Signs Vital Signs Vital Signs: 08/26/22 19:38 08/26/22 19:41 08/26/22 21:22 Temperature 98.2 F Temperature Source Temporal Pulse Rate 100 96 Respiratory Rate 20 H 20 H Respiratory Effort Normal Respiratory Depth Normal Respiratory Pattern Normal Blood Pressure 105/76 Blood Pressure Mean 85 Blood Pressure Source Blood Pressure Position Blood Pressure Location Pulse Ox 97 97 Oxygen Delivery Method Room Air Room Air Room Air 08/26/22 22:00 08/26/22 23:00 08/27/22 00:55 Temperature 97.6 F L Temperature Source Temporal Pulse Rate 102 H 111 H 110 H Respiratory Rate 22 H 20 H 20 H Respiratory Effort Respiratory Depth Respiratory Pattern Blood Pressure 141/92 H 134/93 H 127/84 H Blood Pressure Mean 108 106 98 Blood Pressure Source Monitor Blood Pressure Position Semi-Fowlers Blood Pressure Location Left Arm Pulse Ox 95 98 98 Oxygen Delivery Method Room Air Room Air Room Air 08/27/22 00:00 08/27/22 01:00 Temperature Temperature Source Pulse Rate 110 H 113 H Respiratory Rate 25 H 25 H Respiratory Effort Respiratory Depth Respiratory Pattern Blood Pressure 138/98 H 135/89 H Blood Pressure Mean 111 104 Blood Pressure Source Blood Pressure Position Blood Pressure Location Pulse Ox 100 96 Oxygen Delivery Method Room Air Room Air Weight Weight: 214 lb 4.629 oz Body Mass Index (BMI) 30.7 Physical Exam Const alert Orientation / Consciousness: confused and lethargic HEENT normocephalic and head/scalp atraumatic Eyes PERRL Neck no lymphadenopathy Lymph Lymphatic: no lymphadenopathy noted Resp normal respiratory effort Cardio regular rate, regular rhythm, S1 normal heart sound and S2 normal heart sound GI normal to inspection, nondistended, normoactive bowel sounds and soft to palpation Extremity normal capillary refill Skin General Skin Exam: no breakdown Neuro no focal motor deficits and no sensory deficits noted Psych Attitude: agitated Mood & Affect: anxious Results Lab / Micro Data Result Diagrams: 08/26/22 19:12 08/26/22 19:12 Labs: Laboratory Results - last 24 hr 08/26/22 19:12: WBC 5.1, RBC 4.56 L, Hgb 15.2, Hct 44.2, MCV 96.9 H, MCH 33.3 H, MCHC 34.4, RDW Std Deviation 57.1 H, RDW Coeff of [place] 16.1 H, Plt Count 210, MPV 9.2, Immature Gran % (Auto) 3.600 H, Neut % (Auto) 42.2 L, Lymph % (Auto) 42.3 H , [place] % (Auto) 9.7, Eos % (Auto) 1.0, Baso % (Auto) 1.2 H, Absolute Neuts (auto) 2.1, Absolute Lymphs (auto) 2.14, Nucleated RBC % 0 08/26/22 19:12: Sodium 144, Potassium 4.0, Chloride 108 H, Carbon Dioxide 31.0, Anion Gap 5, BUN 7, Creatinine 0.90, Estim Creat Clear Calc 98.01, Est GFR (MDRD) Af Amer 113, Est GFR (MDRD) Non-Af 93, BUN/Creatinine Ratio 7.7 L, Glucose 97, Calcium 8.0 L, Total Bilirubin 0.20, AST 66 H, ALT 126 H, Alkaline Phosphatase 120 H, Total Creatine Kinase 268, Troponin I High Sens 4, Total Protein 7.7, Albumin 3.6, Globulin 4.1, Albumin/Globulin Ratio 0.9, Lipase 194 08/26/22 19:12: Ethyl Alcohol 423.0 H* 08/26/22 19:12: PT 13.1, INR 1.0, APTT 26.0 08/26/22 19:42: Ammonia 46.0 H 08/26/22 19:42: Lactic Acid 2.1 H* 08/26/22 20:25: Urine Opiates Screen NEGATIVE, Urine Methadone Screen NEGATIVE, Ur Barbiturates Screen POSITIVE H, Ur Phencyclidine Scrn NEGATIVE, Ur Amphetamines Screen NEGATIVE, MDMA (Ecstasy) Screen NEGATIVE, U Benzodiazepines Scrn NEGATIVE, Urine Cocaine Screen NEGATIVE, U Cannabinoids Screen NEGATIVE, Ur Drug Screen Comment 08/26/22 20:25: Urine Color Yellow, Urine Clarity Clear, Urine pH 6.0, Ur Specific [place] 1.010, Urine Protein Negative, Urine Glucose (UA) Normal, Urine Ketones Negative, Urine Occult Blood Negative, Urine Nitrite Negative, Urine Bilirubin Negative, Urine Urobilinogen Normal, Ur Leukocyte Esterase Negative, Urine RBC 0 SEEN, Urine WBC 0 SEEN, Ur Squamous Epith Cells 0-5 SEEN, Urine Bacteria 0 SEEN, Urine Mucus 0 SEEN 08/27/22 00:09: Lactic Acid 2.4 H* ABG Data ABG results: ABG 08/26/22 19:55 Specimen Type ART Sample Site R Radial pH 7.43 Bicarbonate Actual 26.5 H Total CO2 28 Base Excess 2 O2 Saturation 96 O2 % 21 ABG pCO2 40.4 ABG pO2 83 Josh Test Positive Radiology Impression Brain CT 08/26/22 19:44 IMPRESSION: 1. Stable exam 2. Minimal chronic microvascular deep white matter changes. 3. No intracranial mass, hemorrhage or acute territorial infarct. 4. No radiographically significant sinus disease.. Electronically Signed: Parrish Huitron MD at 20:45 EST , Cervical Spine CT 08/26/22 19:44 IMPRESSION: 1. No evidence of acute cervical spinal fracture or spondylolisthesis. No acutely acquired canal stenosis. 2. Mild cervical spondylosis and chronic foraminal narrowing particularly in the RIGHT at. Electronically Signed: Parrish Huitron MD at 20:48 EST , Chest/Abdomen/Pelvis CT 08/26/22 19:44 IMPRESSION: 1. Mild dependent atelectasis at the lung bases, and subtle interstitial patchy groundglass infiltrate in the superior segment of the RIGHT lower lobe. 2. No consolidation, effusion or pneumothorax. 3. No CT evidence of acute traumatic injury to the great vessels the chest. 4. No evidence of acute traumatic injury to the solid organs of the abdomen and pelvis. 5. No masses bowel obstruction abscess free fluid or free air. 6. Nonobstructing LEFT renal calcification. 7. Subtle deformity of the anterior RIGHT eighth rib, suspicious of occult nondisplaced fracture. No other evidence of bony fractures involving the chest abdomen or pelvis. 8. Subtle soft tissue subcutaneous bruising in the RIGHT flank. No hematoma noted. Electronically Signed: Parrish Huitron MD at 20:58 EST , Chest X-Ray 08/26/22 20:05 IMPRESSION: 1. Shallow inspiration basilar atelectasis, no consolidation or effusion. 2. No evidence congestive failure. 3. No acute bony changes. Electronically Signed: Parrish Huitron MD at 20:23 EST , Assessment & Plan Assessment/Plan (1) Alcohol withdrawal: (2) Alcoholic hepatitis: PLAN: Plan Alcohol abuse requesting withdrawal support?admit patient to general medical floor Place patient on CIWA protocol, consult lining caser for discharge planning Charges/Coding Visit Charges Inpatient E&M: 52096 Init Hosp L2
[2022-08-27] MEDS: Acetaminophen 325 MG Tablet 650 MG PO (02:03)
[2022-08-27] MEDS: Thiamine Hydrochloride 100 MG Tablet PO (06:34)
[2022-08-27] MEDS: Folic Acid 1 MG Tablet PO (06:34)
[2022-08-27] MEDS: Phenobarbital 32.4 MG Tablet 97.2 MG PO ×5 (06:34→23:01)
[2022-08-27] MEDS: 0.9% Normal Saline 1,000 ML 75 ML IV ×2 (06:47→19:42)
[2022-08-27] MEDS: hydrOXYzine PAM 25 MG Capsule 50 MG PO ×3 (06:48→19:42)
[2022-08-27] MEDS: Gabapentin 300 MG Capsule PO ×2 (06:48→16:11)
[2022-08-27] MEDS: fluvoxaMINE Maleate 50 MG Tablet 150 MG PO ×2 (10:06→23:00)
[2022-08-27] MEDS: busPIRone 5 MG Tablet 10 MG PO ×3 (10:06→23:01)
--- NOTE | 2022-08-27 11:44 | ADDICTION ---
This grant writer met with PT to conduct ASAM, MSE, AUDIT, DUDIT assessments and to plan for d/c. PT A+Ox4 and participated actively. All assessments completed and placed in PT's chart. This is PT's 5th time in detox with a 6 week period. Pt was informed that clinicians recommendations are inpatient treatment. PT agreed. PT will f/u with [facility] in [facility] for follow-up inpatient treatment services. A pile driver operator helper from this facility will arrive tomorrow between 12-2pm. They will call the floor to inform of arrival. Pt can then be walked down to main lobby for transport.
[2022-08-27] MEDS: Ibuprofen 600 MG Tablet PO (12:47)
--- NOTE | 2022-08-27 16:49 | CHAPLAIN ---
Type of Pastoral Visit _x__ Initial Visit ___ Follow-up Visit ___ On-call Visit ___ General Patient Visit ___ Spiritual Assessment ___ Family Conference ___ Bereavement ___ Rapid Response ___ Code Blue ___ Other (describe below) Pastoral Care Referral From _x__ Patient ___ Family ___ Nurse ___ Physician ___ Soaking Tank Worker ___ Health Commissioner ___ Other (describe below) Sacrament/Intervention _x__ Active listening ___ Anointing ___ Sikhism ___ Bereavement ___ Communion ___ Radha exploration ___ ___ Life review _x__ Prayer ___ Reconciliation ___ Sacrament of Sick _x__ Supportive presence ___ Wedding ___ Other (describe below) Pastoral Comments patient has been seen before in previous admissions; pt is walking the hallways; this hand reamer offered to walk with the patient; pt agreed and he actively engaged in conversation of his need for help, support, and intervention; pt admits to lack of will to fight the addiction by himself; pt states that he is losing hope for his future; listening to pt opened up recognition of need for finding hope again; pt also admits that he desires spiritual help to make a new life; pt states he will be going to an inpatient rehab facility; pt welcomed a prayer and the opportunity to talk;
[2022-08-27] MEDS: Loperamide 2 MG Capsule PO (18:33)
[2022-08-28] MEDS: Ibuprofen 600 MG Tablet PO ×2 (00:25→08:41)
[2022-08-28] MEDS: traZODone 100 MG Tablet PO (00:25)
[2022-08-28] MEDS: Gabapentin 300 MG Capsule PO (00:25)
[2022-08-28] MEDS: hydrOXYzine PAM 25 MG Capsule 50 MG PO ×2 (00:25→08:40)
[2022-08-28 02:36] VITALS: BP 142/99; PULSE 97; RESP 18; TEMP 37.3; O2SAT 98
[2022-08-28] MEDS: Phenobarbital 32.4 MG Tablet 97.2 MG PO ×3 (02:38→10:45)
[2022-08-28 05:44] LABS: AST(SGOT) 57 U/L (15-37); Alanine Aminotransfer ALT/SGPT 90 U/L (16-61); Albumin, Serum 2.9 g/dL (3.2-5.0); Alkaline Phosphatase 92 U/L (45-117); Anion Gap 6 (5-15); BUN 11 mg/dL (7-18); BUN/Creat Ratio 12.4 RATIO (10-20); Calcium,Total 8.1 mg/dL (8.5-10.1); Chloride 106 mmol/L (98-107); Creatinine, Serum 0.89 mg/dL (0.70-1.30); EST Glomerular Filtration Rate 95 mL/min (>60); Est Glom Filt Rate - Afr Amer 115 mL/min (>60); Estimated Creatinine Clearance 99.11 ml/min; Globulin 2.9 g/dL (2.2-4.2); Glucose 90 mg/dL (74-106); Potassium 3.1 mmol/L (3.5-5.1); Protein, Total 5.8 g/dL (6.4-8.2); Sodium Level 141 mmol/L (136-145)
[2022-08-28] MEDS: busPIRone 5 MG Tablet 10 MG PO ×2 (06:15→14:04)
[2022-08-28 07:12] VITALS: O2SAT 95
[2022-08-28 08:34] VITALS: BP 137/87; PULSE 73; RESP 18; TEMP 36.9; O2SAT 98
[2022-08-28] MEDS: Thiamine Hydrochloride 100 MG Tablet PO (08:40)
[2022-08-28] MEDS: Folic Acid 1 MG Tablet PO (08:40)
[2022-08-28] MEDS: 0.9% Normal Saline 1,000 ML 75 ML IV (08:41)
[2022-08-28] MEDS: fluvoxaMINE Maleate 50 MG Tablet 150 MG PO (08:41)
--- NOTE | 2022-08-28 11:46 | DCINST_ITS ---
Discharge Instructions Diet Discharge Diet: No restrictions Activity Discharge Activity: Return to Normal Activity Weight Bearing Status: Full weight bearing Follow Up Care Test Results: Test results from this visit will be discussed in further detail at your follow- up appointment, if applicable. Discharge Plan Admission Admit Date/Time: 08/27/22 02:04 Primary Reason for Your Visit: alcohol intoxication, alcoholism Attending Provider: Esvin Pinzon Primary Care Provider: Dagoberto Mari Consulting Providers: Jemal Yin Discharge Orders/Prescriptions Prescriptions: Continued trazodone 150 MG tablet 300 mg PO QHS PRN (Reason: Sleep) 30 Days Qty: 60 0RF buspirone 15 mg tablet 10 mg PO TID Label Comments: TAKE 1 TABLET BY MOUTH THREE TIMES DAILY gabapentin 300 MG capsule 300 mg PO QHS fluvoxamine 100 MG tablet 150 mg PO BID Referrals / Follow Up: Dagoberto Mari MD [Primary Care Provider] - Disposition Disposition (needs filled in before D/C Order can be placed): DC/Tx to Another Type of HCF
--- NOTE | 2022-08-28 11:48 | PCM.DC.SUM ---
Providers Date of Admission: 08/27/22 Date of Discharge: 08/28/22 Primary Care Physician: Dr. Dagoberto Mari MD Reason For Visit: ALCOHOL WITHDRAWAL Diagnosis Discharge Diagnosis (1) Alcohol withdrawal: Status: Acute Code(s): F10.939 - Alcohol use, unspecified with withdrawal, unspecified (2) Alcoholic hepatitis: Status: Acute Code(s): K70.10 - Alcoholic hepatitis without ascites Plan 1. Acute alcohol intoxication #2 debility secondary to #1 #3 chronic alcoholism Alcohol withdrawal was ruled out Medications at Discharge Home Medications trazodone 150 mg tablet 300 mg PO QHS PRN Sleep 30 days #60 tabs 05/11/18 buspirone 15 mg tablet 10 mg PO TID depression 05/22/22 gabapentin 300 mg capsule 300 mg PO QHS sleep 05/22/22 fluvoxamine 100 mg tablet 150 mg PO BID OCD 08/04/22 Hospital Course Operations None Procedures None Summary of Care Provided Minutes Spent on Discharge: 31 Hospital Course: This 52-year-old white male was seen in the emergency room at [facility] after being brought in by squad, he was found on the floor of his residence with liquor bottles surrounding him, patient had been discharge after undergoing alcohol detox at this hospital the day before. Patient's alcohol level was elevated indicating intoxication, he was admitted to [place] [address], he was seen by addiction clinical social work therapist, he had no signs of alcohol withdrawal during his hospitalization. On 08/28/2022, patient was seen and examined: On examination he appeared in good health and spirits. Vital signs as documented. Skin warm and dry and without overt rashes. Neck without JVD, neck was supple, trachea midline, thyroid was normal. Lungs clear bilaterally, normal air movement was noted. Heart exam notable for regular rhythm, normal sounds and absence of murmurs, rubs or gallops. Abdomen unremarkable and without evidence of organomegaly, masses, or abdominal aortic enlargement. Bowel sounds are present, abdomen is not distended. Extremities nonedematous, no cyanosis was noted, no clubbing was noted. Neuro: Cranial nerves II through XII are grossly intact, no focal motor deficits were noted, sensation to light touch and pinprick intact, motor exam 5/5 throughout. Psych: Patient is alert and oriented x3, he does not appear anxious or depressed, he does not appear agitated. Patient appears stable for transfer to an inpatient detox facility on 08/28/2022. Weight / BMI Weight Weight: 88.496 kg Body Mass Index (BMI) 28.0 ABG / Lab / Microbiology Data Result Diagrams: 08/26/22 19:12 08/28/22 04:00 Laboratory: Laboratory Results - last 24 hr 08/28/22 04:00: Sodium 141, Potassium 3.1 L, Chloride 106, Carbon Dioxide 29.0, Anion Gap 6, BUN 11, Creatinine 0.89, Estim Creat Clear Calc 99.11, Est GFR (MDRD) Af Amer 115, Est GFR (MDRD) Non-Af 95, BUN/Creatinine Ratio 12.4, Glucose 90, Calcium 8.1 L, Magnesium 2.0, Total Bilirubin 0.50, AST 57 H, ALT 90 H, Alkaline Phosphatase 92, Total Protein 5.8 L, Albumin 2.9 L, Globulin 2.9, Albumin/Globulin Ratio 1.0 D/C Instructions Discharge Diet: No restrictions Weight Bearing Status: Full weight bearing Meaningful Use Info Meaningful Use Diagnoses (Choose all that apply): None applicable Discharge Plan Admission Admit Date/Time: 08/27/22 02:04 Primary Reason for Your Visit: alcohol intoxication, alcoholism Attending Provider: Esvin Pinzon Primary Care Provider: Dagoberto Mari Consulting Providers: Jemal Yin Discharge Orders/Prescriptions Prescriptions: Continued trazodone 150 MG tablet 300 mg PO QHS PRN (Reason: Sleep) 30 Days Qty: 60 0RF buspirone 15 mg tablet 10 mg PO TID Label Comments: TAKE 1 TABLET BY MOUTH THREE TIMES DAILY gabapentin 300 MG capsule 300 mg PO QHS fluvoxamine 100 MG tablet 150 mg PO BID Referrals / Follow Up: Dagoberto Mari MD [Primary Care Provider] - Disposition Disposition (needs filled in before D/C Order can be placed): DC/Tx to Another Type of HCF Charges/Coding Visit Charges Inpatient E&M: 14018 Disch Hosp >30min
--- NOTE | 2022-08-28 12:48 | NURSING ---
1230 pt out ambulating in hallway per self. pt passes a visitor who is holding a toddler- Pt up to nurses station and looks directly at said nurse and states did i just show my penis to the baby. informed pt that said nurse hoped he did not and that if he is concerned that he may have that behavior, he needs to go back to his room. pt then makes two more laps around the hallway and again asks nurse the same question- nurse informed pt that if he is afraid that may occur that he needs to go back to his room. pt then goes back to his room.
--- NOTE | 2022-08-28 13:38 | PHA.DC.MR ---
Pharmacy Service has performed discharge medication reconciliation for this patient. The patient's discharge medication list was reviewed for discrepancies and discrepancies were resolved. Home Medications trazodone 150 mg tablet 300 mg PO QHS PRN Sleep 30 days #60 tabs 05/11/18 buspirone 15 mg tablet 10 mg PO TID depression 05/22/22 gabapentin 300 mg capsule 300 mg PO QHS sleep 05/22/22 fluvoxamine 100 mg tablet 150 mg PO BID OCD 08/04/22
--- NOTE | 2022-08-28 14:05 | NURSING ---
while giving pt his medications- pt looks squarely at nurse and states i'm not a pedophile informed pt that he needs to take his med and pt cooperates.
[2022-08-28 14:06] VITALS: BP 147/95; PULSE 87; RESP 18; TEMP 36.5; O2SAT 97
== END 2022-08-28 14:17 | disposition other institution (70) | DRG 896 ==
LOC: ED 19:53 → MS3 08-27 07:25
PROVIDERS: Admitting Provider Family Medicine; Emergency Provider Emergency Medicine; PCP Family Medicine; Visit Provider Internal Medicine
DX: F10.229 Alcohol dependence with intoxication, unspecified (principal); J69.0 Pneumonitis due to inhalation of food and vomit; K70.10 Alcoholic hepatitis without ascites; I10 Essential (primary) hypertension; F17.210 Nicotine dependence, cigarettes, uncomplicated; Y90.8 Blood alcohol level of 240 mg/100 ml or more; Z79.899 Other long term (current) drug therapy; S00.83XD Contusion of other part of head, subsequent encounter; W22.09XD Striking against other stationary object, subsequent encounter
CPT/HCPCS: 36415; 36600; 70450; 71045; 71260; 72125; 74177; 80053; 80307; 81001; 82077; 82140; 82550; 82803; 83605; 83690; 83735; 84484; 85025; 85610; 85730; 96361; 96365; 96375; 99221; 99285; 99406; J7030; J7050; Q9967; A4216; G0378; J0295

== ENCOUNTER 2023-04-14 04:57 | Inpatient (IN) | payer SELFPAY ==
[2023-04-14] VITALS (7 sets, daily range): BP systolic 144–154; BP diastolic 86–100; PULSE 107–140; RESP 18–24; TEMP 36.4–37.1; O2SAT 92–97; BMI 29.0; BMI 29.5
--- NOTE | 2023-04-14 05:05 | RAD_ITS ---
EXAM: XR CHEST, 1 VIEW CLINICAL INDICATION: CP TECHNIQUE: Frontal view of the chest. COMPARISON: Previous chest radiographs of 08/26/2022 and 08/21/2022. FINDINGS: LUNGS AND PLEURAL SPACES: Limited degree of inspiration No consolidation or edema. No pneumothorax. No effusion. HEART: Normal heart size with normal vasculature. MEDIASTINUM: Minimal elongation of the thoracic aorta. Trachea is midline. No mediastinal widening. BONES/JOINTS: Thoracic degenerative spurring. SOFT TISSUES: Unremarkable. RAD/Chest 1 View (Portable) IMPRESSION: No significant interval change. No radiographic evidence of acute cardiopulmonary disease. Electronically Signed: John Leonardo MD at 5:55 EDT ,
--- NOTE | 2023-04-14 05:09 | EX.ED.DYSGE1 ---
HPI History of Present Illness Chief Complaint: ETOH Intox Informant: patient and EMS Narrative Narrative: Patient presents via EMS secondary to alcohol intoxication. Call initially when out patient was going through alcohol withdrawal. He states he is been drinking excessively and his last drink was an hour ago. He states overall he feels sick and he further describes this as his body feeling achy. Patient has an history of alcoholism but states he had been doing quite well this year, but slipped up and started drinking again about a month ago. [facility] Medical History (Updated 04/14/23 @ 05:[address] Barby Joshua MD) DONTA (acute kidney injury) Alcohol abuse Anxiety Depression ETOH abuse History of foot fracture HTN (hypertension) Jaundice due to hepatitis Methamphetamine abuse OCD (obsessive compulsive disorder) Smoker Tobacco use Transaminitis Home Medications trazodone 150 mg tablet 300 mg (2 x 150 mg) PO QHS PRN Sleep 30 days #60 tabs 05/11/18 [Rx Last Taken 3 Days Ago ~05/19/22] buspirone 15 mg tablet 10 mg PO TID depression 05/22/22 [History Last Taken Unknown] gabapentin 300 mg capsule 300 mg PO QHS sleep 05/22/22 [History Last Taken Unknown] fluvoxamine 100 mg tablet 150 mg PO BID OCD 08/04/22 [History Last Taken Unknown] Allergy/AdvReac Type Severity Reaction Status Date / Time amoxicillin AdvReac Upset Verified 08/26/22 20:08 Stomach Family History Mother No problems noted. Father CAD (coronary artery disease) Heart disease Myocardial infarction Surgical History S/P herniorrhaphy Social History household members: significant other housing: apartment Smoking Status: Current some day smoker tobacco type: cigarettes how long ago did patient quit smoking: Notes quit tobacco use ~ 2 weeks prior to current presentation. alcohol intake: current details: 1/2 gallon whiskey 80 proof daily. substance use type: former substance user Date of last use: Prior history of use, methamphetamine noted prior. ROS ROS ED Constitutional Constitutional ED: Denies chills or fever(s) Eyes Eyes: Denies change in vision ENT ENT ED: Denies rhinorrhea or sore throat Cardiovascular Cardiovascular: Reports palpitations; Denies chest pain Respiratory/Chest Respiratory/Chest: Denies cough or dyspnea Gastrointestinal Gastrointestinal: Denies abdominal pain, nausea or vomiting Genitourinary Genitourinary ED: Denies dysuria Musculoskeletal Musculoskeletal: Denies back pain or extremity pain Integumentary Denies Abrasions or rash Neurologic Neurologic: Denies headache(s) or weakness Psychiatric Psychiatric: Reports anxiety Allergic/Immunologic Allergic/Immunologic ED: Denies lip swelling or urticaria EXAM Physical Exam Const Vital Signs: 04/14/23 04:59 Temperature 97.6 F L Temperature Source Temporal Pulse Rate 128 H Respiratory Rate 24 H Blood Pressure 153/98 H Blood Pressure Mean 116 Pulse Ox 92 Oxygen Delivery Method Room Air Positive well nourished and well developed General Appearance ED: well developed HEENT Reports normocephalic and head/scalp atraumatic Eyes PERRL and EOMs intact bilaterally Neck supple Chest Wall inspection of chest normal and palpation of chest normal Resp normal respiratory effort and clear to auscultation bilaterally Cardio regular rhythm Rate: tachycardic GI non-tender Palpation: soft Extremity normal to inspection Neuro Neuro Narrative: Patient alert with no focal neurologic deficits. Patient has slightly slurred speech when speaking in smells heavily of alcoholic beverage. Sensorium / Orientation: alert Psych mental status grossly normal Skin no rashes or lesions noted MDM MDM MDM Narrative Medical decision making narrative: Patient is placed on hospital monitor. EKG obtained to evaluate for cardiac arrhythmia/ischemia. Chest x-ray obtained to evaluate for acute lung pathology, cardiac size, or mediastinal abnormality. Labwork obtained to evaluate for leukocytosis, anemia, and electrolyte derangement. Patient given IV fluids as well as Toradol for myalgias. History & Record Review Discussion w/independent historian: EMS personnel and Patient Additional record(s) reviewed:: Prior inpatient record, Prior ED visit and Prior labs Lab Data Attestation: I reviewed the patient's lab results. Labs: Laboratory Results - last 24 hr 04/14/23 05:16 WBC 12.8 H RBC 5.51 Hgb 17.8 H Hct 50.5 MCV 91.7 MCH 32.3 H MCHC 35.2 RDW Std Deviation 47.5 H RDW Coeff of [place]ich[place] 14.0 Plt Count 187 MPV 9.5 Immature Gran % (Auto) 0.200 Neut % (Auto) 70.6 H Lymph % (Auto) 20.5 [place] % (Auto) 8.0 Eos % (Auto) 0.2 Baso % (Auto) 0.5 Absolute Neuts (auto) 9.0 H Absolute Lymphs (auto) 2.62 Nucleated RBC % 0 Sodium 136 Potassium 3.9 Chloride 100 Carbon Dioxide 24.0 Anion Gap 12 BUN 17 Creatinine 1.07 Estim Creat Clear Calc 81.49 Est GFR (MDRD) Af Amer 93 Est GFR (MDRD) Non-Af 77 BUN/Creatinine Ratio 15.9 Glucose 115 H Calcium 8.5 Total Bilirubin 0.70 Direct Bilirubin 0.28 AST 43 H ALT 39 Alkaline Phosphatase 100 Total Protein 8.0 Albumin 4.0 Globulin 4.0 Ethyl Alcohol 338.0 H* Radiography Chest X-Ray - ED: 1 View, Read by ED Physician, Normal, Heart, Lungs and Mediastinum Diagnostic Testing: Clinical Impression(s) from Imaging Studies Chest X-Ray 04/14/23 05:05 IMPRESSION: No significant interval change. No radiographic evidence of acute cardiopulmonary disease. Electronically Signed: John Leonardo MD at 5:55 EDT , EKG Initial EKG: Attestation: I personally reviewed and interpreted this EKG as follows: Interpretation: Sinus Tachycardia (Sinus tachycardia at 120. No acute ischemia.) Treatment and Re-Evaluation :: CBC reveals a white count of 12.8 with 70% neutrophils. Chemistry studies remarkable only for glucose of 115. LFTs significant for an AST of 43, otherwise values normal. EtOH is 338. EKG is sinus tachycardia with no acute ischemia. On repeat evaluation he still complains of some mild body aches. He will be given p.o. Tylenol. I advised him I did would not give him anything narcotic given his elevated alcohol level. He is requesting admission to the detox program again as he had been doing quite well earlier this year. Discharge Plan Dx/Rx/DC Orders Clinical Impression: Alcohol intoxication, Desire for detoxification, Alcohol abuse Disposition Disposition: [facility]
[2023-04-14 05:23] LABS: Absolute Lymphocyte Count 2.62 X10^3/uL (0.83-4.51); Basophil# 0.06 X10^3/uL; Basophil% 0.5 % (0-1); Eosinophil# 0.02 X10^3/uL; Eosinophils% 0.2 % (0-5); Hematocrit 50.5 % (40-54); Hemoglobin 17.8 g/dL (13.0-16.5); Lymphocyte # 2.62 X10^3/ul (0.83-4.51); Lymphocyte % 20.5 % (19-41); Mean Corp Hgb Conc 35.2 g/dL (32-36); Mean Corpuscular Hgb 32.3 pg (27.0-32.0); Mean Corpuscular Volume 91.7 fL (80-94); Mean Platelet Vol. 9.5 fl (6.2-12.0); Monocyte# 1.02 X10^3/uL; NRBC Flagged by Analyzer 0 % (0-5); Neutrophil # 9.03 X10^3/uL (2.7-7.7); Neutrophil % 70.6 % (47-70); Platelet Count 187 K/mm3 (150-450); RBC Distribution Width SD 47.5 fl (35.1-43.9); Red Blood Count 5.51 M/mm3 (4.6-6.2); White Blood Count 12.8 K/mm3 (4.4-11.0)
[2023-04-14] MEDS: Ketorolac 30 MG/ML Syringe IV (05:24)
[2023-04-14] MEDS: 0.9% Normal Saline 1,000 ML 1000 ML IV (05:24)
[2023-04-14] MEDS: 0.9% Normal Saline 1,000 ML 150 ML IV ×2 (05:26→20:37)
[2023-04-14 05:41] LABS: AST(SGOT) 43 U/L (15-37); Alanine Aminotransfer ALT/SGPT 39 U/L (16-61); Alkaline Phosphatase 100 U/L (45-117); Anion Gap 12 (5-15); BUN 17 mg/dL (7-18); BUN/Creat Ratio 15.9 RATIO (10-20); Bilirubin, Direct 0.28 mg/dL (0.00-0.30); Calcium,Total 8.5 mg/dL (8.5-10.1); Chloride 100 mmol/L (98-107); Creatinine, Serum 1.07 mg/dL (0.70-1.30); EST Glomerular Filtration Rate 77 mL/min (>60); Est Glom Filt Rate - Afr Amer 93 mL/min (>60); Estimated Creatinine Clearance 81.49 ml/min; Glucose 115 mg/dL (74-106); Potassium 3.9 mmol/L (3.5-5.1); Sodium Level 136 mmol/L (136-145)
[2023-04-14] MEDS: Acetaminophen 500 MG Tablet 1000 MG PO (06:07)
--- NOTE | 2023-04-14 06:22 | HP.PCM.HOS_ITS ---
HPI - General General Date of Admission: 04/14/23 Date of Service: 04/14/23 Chief Complaint: Desire for detoxification HPI Narrative ALTHEA TIERNEY, is a 53 M with a significant history of alcoholism who has been to our drug rehabilitation program multiple times presenting to the emergency department with alcoholism. On the day of presentation patient had been drinking a lot. Last time he drank was about an hour before presentation. Be cause of body aches he thought that he was withdrawing so he called 911 and he was brought to the emergency department. He reports drinking for about 35 years. He was sober recently. However, about 2 months ago he began drinking again. He drinks ever a variety of alcoholic beverages including vodka whiskey etc.. He does not drink a fixed amount each day. [facility] Medical History (Updated 04/14/23 @ 06:[address] Giovani Baker MD) DONTA (acute kidney injury) Alcohol abuse Anxiety Depression ETOH abuse History of foot fracture HTN (hypertension) Jaundice due to hepatitis Methamphetamine abuse OCD (obsessive compulsive disorder) Smoker Tobacco use Transaminitis Home Medications trazodone 150 mg tablet 300 mg (2 x 150 mg) PO QHS PRN Sleep 30 days #60 tabs 05/11/18 [Rx Last Taken 3 Days Ago ~05/19/22] buspirone 15 mg tablet 10 mg PO TID depression 05/22/22 [History Last Taken Unknown] gabapentin 300 mg capsule 300 mg PO QHS sleep 05/22/22 [History Last Taken Unknown] fluvoxamine 100 mg tablet 150 mg PO BID OCD 08/04/22 [History Last Taken Unknown] Allergy/AdvReac Type Severity Reaction Status Date / Time amoxicillin AdvReac Upset Verified 08/26/22 20:08 Stomach Family History Mother No problems noted. Father CAD (coronary artery disease) Heart disease Myocardial infarction Surgical History S/P herniorrhaphy Social History household members: significant other housing: apartment Smoking Status: Current some day smoker tobacco type: cigarettes how long ago did patient quit smoking: Notes quit tobacco use ~ 2 weeks prior to current presentation. alcohol intake: current details: 1/2 gallon whiskey 80 proof daily. substance use type: former substance user Date of last use: Prior history of use, methamphetamine noted prior. ROS ROS Narrative Pertinent positives and pertinent negatives as noted in HPI. All other systems were reviewed and are negative Vital Signs Vital Signs Vital Signs: 04/14/23 04:59 04/14/23 06:08 Temperature 97.6 F L Temperature Source Temporal Pulse Rate 128 H 126 H Respiratory Rate 24 H 20 H Blood Pressure 153/98 H 154/92 H Blood Pressure Mean 116 112 Pulse Ox 92 93 Oxygen Delivery Method Room Air Room Air Weight Weight: 91.8 kg Body Mass Index (BMI) 29.0 Physical Exam Narrative Physical exam: General: Well-nourished, well-developed. Head: Normocephalic, atraumatic, no tenderness Eyes: Vision is grossly intact. EOMI ENT, no trauma, moist mucous membranes, no rhinorrhea Neck: Nontender, No thyromegaly. CVS: Regular rate and rhythm. S1-S2 present. No murmur, gallop or rub. Respiratory : clear to auscultation bilaterally, chest wall nontender Abdomen: Soft, nontender, nondistended, normal bowel sounds, no masses : Deferred Back: Nontender, no CVA tenderness, no midline spinal tenderness, deformities, step-offs Extremities: Nontender full range of motion, no trauma Skin: Normal color, no trauma, abrasions Neuro: Hypoalert, oriented, cranial nerves II through XII grossly intact. Psychiatry: Normal mood. Normal affect. Not depressed. Not anxious. Results Lab / Micro Data 04/14/23 05:16 04/14/23 05:16 Labs: Laboratory Results - last 24 hr 04/14/23 05:16: WBC 12.8 H, RBC 5.51, Hgb 17.8 H, Hct 50.5, MCV 91.7, MCH 32.3 H , MCHC 35.2, RDW Std Deviation 47.5 H, RDW Coeff of Guicho 14.0, Plt Count 187, MPV 9.5, Immature Gran % (Auto) 0.200, Neut % (Auto) 70.6 H, Lymph % (Auto) 20.5, [place] % (Auto) 8.0, Eos % (Auto) 0.2, Baso % (Auto) 0.5, Absolute Neuts (auto) 9.0 H, Absolute Lymphs (auto) 2.62, Nucleated RBC % 0, Sodium 136, Potassium 3.9, Chloride 100, Carbon Dioxide 24.0, Anion Gap 12, BUN 17, Creatinine 1.07, Estim Creat Clear Calc 81.49, Est GFR (MDRD) Af Amer 93, Est GFR (MDRD) Non-Af 77, BUN/Creatinine Ratio 15.9, Glucose 115 H, Calcium 8.5, Total Bilirubin 0.70, Direct Bilirubin 0.28, AST 43 H, ALT 39, Alkaline Phosphatase 100, Total Protein 8.0, Albumin 4.0, Globulin 4.0, Ethyl Alcohol 338.0 H* Radiology Impression Chest X-Ray 04/14/23 05:05 IMPRESSION: No significant interval change. No radiographic evidence of acute cardiopulmonary disease. Electronically Signed: John Leonardo MD at 5:55 EDT , Assessment & Plan Assessment/Plan (1) Alcohol abuse: (2) Alcohol intoxication: QUALIFIERS: Complication of substance-induced condition: uncomplicated Qualified Code(s): F10.920 - Alcohol use, unspecified with intoxication, uncomplicated (3) Desire for detoxification: PLAN: Plan Alcohol dependence and desire for detoxification Patient be started on phenobarbital and other adjunctive medications: Gabapentin as needed; dicyclomine as needed; Vistaril as needed; Imodium as needed; trazodone as needed; Zofran as needed; scheduled thiamine; and schedule folic acid. Monitor CIWA score Depression/anxiety disorder Persistent Home antidepressants and gabapentin continued. DVT prophylaxis Low risk Encourage to ambulate. Time spent in the patient's overall evaluation,decision-making process, review of diagnostic data, adjustment of management, discussion with other providers, nursing nursing and ancillary staff involved in patient's care documentation, 45 minutes. Charges/Coding Visit Charges Inpatient E&M: 42294 Init Hosp L2
--- NOTE | 2023-04-14 06:49 | NURSING ---
MED SURG AGYEPONG ETOH DETOX
--- NOTE | 2023-04-14 08:12 | PCM.PN.HOSP ---
Reason for Visit Reason for Visit: Diagnoses Alcohol abuse, uncomplicated (04/14/23) Alcohol use, unspecified with intoxication, uncomplicated (04/14/23) Subjective Subjective Patient is a 53-year-old gentleman with history of alcohol dependence presenting with acute alcohol withdrawal Objective Data Objective Data Vital Signs: Vital Signs Temp Pulse Resp BP Pulse Ox O2 Del Method 97.6 F L 126 H 20 H 154/92 H 93 Room Air 04/14/23 04:59 04/14/23 06:08 04/14/23 06:08 04/14/23 06:08 04/14/23 06:08 04/14/23 06:08 Oxygen Delivery Method Room Air Weight: 91.8 kg Body Mass Index (BMI) 29.0 Lab / Micro Data 04/14/23 05:16 04/14/23 05:16 Labs: Laboratory Results - last 24 hr 04/14/23 05:16: WBC 12.8 H, RBC 5.51, Hgb 17.8 H, Hct 50.5, MCV 91.7, MCH 32.3 H, MCHC 35.2, RDW Std Deviation 47.5 H, RDW Coeff of Guicho 14.0, Plt Count 187, MPV 9.5, Immature Gran % (Auto) 0.200, Neut % (Auto) 70.6 H, Lymph % (Auto) 20.5, [place] % (Auto) 8.0, Eos % (Auto) 0.2, Baso % (Auto) 0.5, Absolute Neuts (auto) 9.0 H, Absolute Lymphs (auto) 2.62, Nucleated RBC % 0, Sodium 136, Potassium 3.9, Chloride 100, Carbon Dioxide 24.0, Anion Gap 12, BUN 17, Creatinine 1.07, Estim Creat Clear Calc 81.49, Est GFR (MDRD) Af Amer 93, Est GFR (MDRD) Non-Af 77, BUN/Creatinine Ratio 15.9, Glucose 115 H, Calcium 8.5, Total Bilirubin 0.70, Direct Bilirubin 0.28, AST 43 H, ALT 39, Alkaline Phosphatase 100, Total Protein 8.0, Albumin 4.0, Globulin 4.0, Ethyl Alcohol 338.0 H* Radiography Diagnostic Testing: Radiology Impression Chest X-Ray 04/14/23 05:05 IMPRESSION: No significant interval change. No radiographic evidence of acute cardiopulmonary disease. Electronically Signed: John Leonardo MD at 5:55 EDT , Physical Exam Narrative GENERAL: Restless HEENT: Atraumatic; normocephalic EYES; Anicteric, Normal Conjunctiva NECK; supple, normal thyroid, RESPIRATORY: Diminished to auscultation CARDIOVASCULAR: Regular S1 S2, GI: soft, normoactive bowel sounds, : No Renal angle tenderness; EXTREMITIES: No edema, no clubbing, MUSCULOSKELETAL: no muscle wasting NEURO: Awake; no lateralizing signs. SKIN: No Rash PSYCH; restless Assessment & Plan Assessment/Plan (1) Alcohol abuse: (2) Alcohol intoxication: QUALIFIERS: Complication of substance-induced condition: uncomplicated Qualified Code(s): F10.920 - Alcohol use, unspecified with intoxication, uncomplicated (3) Desire for detoxification: PLAN: Plan 53-year-old gentleman presenting with acute alcohol withdrawal 1. Acute alcohol withdrawal ? In a patient with chronic alcohol dependence admitted to regular nursing floor managed with phenobarb taper in addition to adjuvant medications for his symptoms 2. Depression with anxiety ? Patient is on buspirone as well as clovoxamine did continue 3. Tobacco dependence - Counseled on cessation, offered nicotine patch for tobacco cravings 4. DVT prophylaxis Low risk, did encourage early ambulation Time spent in the patient's overall evaluation,decision-making process, review of diagnostic data, adjustment of management, discussion with other providers, nursing nursing and ancillary staff involved in patient's care documentation, 35 minutes Charges/Coding Visit Charges Inpatient E&M: 17734 Subs Hosp L2
[2023-04-14] MEDS: Phenobarbital 32.4 MG Tablet 64.8 MG PO ×4 (08:33→20:33)
[2023-04-14] MEDS: Folic Acid 1 MG Tablet PO (10:10)
[2023-04-14] MEDS: fluvoxaMINE Maleate 50 MG Tablet 150 MG PO (10:10)
[2023-04-14] MEDS: Thiamine Hydrochloride 100 MG Tablet PO (10:10)
--- NOTE | 2023-04-14 10:18 | ADDICTION ---
Pt. is a 53 year old male admitted through the ER, he was transported by ambulance from his home. He reports he tried to detox from ETOH at home, but was not able to manage the withdrawal symptoms. Pt. he has been drinking for over 20 years, feels his ETOH became a problem around 16-17 years old. He lives alone, currently unemployed-he recently quit working d/t ETOH use. Denies current legal history, reports h/o DUI's. Reports he has 3 adult children, identifies his step-mom, mom, and step-dad as sober supports. Treatment options reviewed with pt. he refuses residential d/t the need to find a job (reports he has to pay rent). Education provided re: housing assistance. Client has agreed to complete assessment at [facility], peer support, and [facility].
[2023-04-14] MEDS: Acetaminophen 325 MG Tablet 650 MG PO ×2 (11:07→18:21)
[2023-04-14] MEDS: LORazepam 0.5 MG Tablet PO ×2 (11:59→18:23)
--- NOTE | 2023-04-14 12:03 | CASEMGMT ---
Social Work SW met with patient and introduced self and role as [facility] SW. Patient pacing room and agreeable to speak with SW. SW inquired about patient's current insurance and other needs. Patient confirms no current insurance, however, patient states he plans to return to work after he addressed his current addiction needs. SW reviewed [facility] resource list, reviewing [facility] [employer], [facility], [facility] as well as [facility]. Patient declines referral for [facility] to assist with Medicaid application. SW encouraged patient to schedule with CM at [facility] if patient decides to complete application and needs assistance. Patient reports understanding and voices no other needs. Denisse Donahue DRY COLOR MIXER, JASPREET
[2023-04-14] MEDS: Ondansetron 8 MG Tablet PO (12:42)
[2023-04-14] MEDS: busPIRone 5 MG Tablet 10 MG PO (13:39)
[2023-04-14] MEDS: Dicyclomine 10 MG Capsule 20 MG PO ×2 (13:39→20:33)
--- NOTE | 2023-04-14 14:14 | CASEMGMT ---
Social Work SW performed chart review, documents not on file. SW met with patient and inquired about completion of AD. Patient reports AD are not completed and denied information or assistance with AD. SW informed patient [facility] social insurance specialist can assist in the future if needs arise. Patient voiced understanding, no other needs voiced. Denisse Donahue MSW, JASPREET
--- NOTE | 2023-04-14 16:34 | CHAPLAIN ---
Type of Pastoral Visit _x__ Initial Visit ___ Follow-up Visit ___ On-call Visit ___ General Patient Visit ___ Spiritual Assessment ___ Family Conference ___ Bereavement ___ Rapid Response ___ Code Blue ___ Other (describe below) Pastoral Care Referral From _x__ Patient ___ Family ___ Nurse ___ Physician ___ Dealer Sales Rep ___ Granulating Blender ___ Other (describe below) Sacrament/Intervention _x__ Active listening ___ Anointing ___ Bahai ___ Bereavement ___ Communion ___ Radha exploration ___ ___ Life review _x__ Prayer ___ Reconciliation ___ Sacrament of Sick _x__ Supportive presence ___ Wedding ___ Other (describe below) Pastoral Comments patient has been seen before and he remembers this customer solutions teammate; pt is pacing at the doorway and ERP PM is attempting to keep him inside the room; offer of presence and support to pt; pt admits to anxiety and not sure he can have a conversation; however pt is anxious about finances and wants to talk to someone that met him earlier about Medicaid; this customer solutions teammate went to desk and made inquiries for pt and returned with answers and assurances for him; pt asked about starting the TV for him and found him some sports to watch; diversion talking and watching sports to help calm pt; offered of ongoing support; pt speaks of desire to get sober again and his frustrations at ongoing relapses; pt admits that he needs the spiritual help; pt welcomes a prayer spoken for him and the presence of this customer solutions teammate to give kindness and hope
[2023-04-14] MEDS: 0.9% Saline Lock 10 ML Syringe IV (20:50)
[2023-04-15] MEDS: LORazepam 0.5 MG Tablet PO (00:40)
[2023-04-15] MEDS: traZODone 100 MG Tablet 300 MG PO (00:40)
[2023-04-15] MEDS: busPIRone 5 MG Tablet 10 MG PO ×4 (00:41→21:04)
[2023-04-15] MEDS: fluvoxaMINE Maleate 50 MG Tablet 150 MG PO ×3 (00:42→21:05)
[2023-04-15] MEDS: Phenobarbital 32.4 MG Tablet 64.8 MG PO ×6 (00:47→21:04)
[2023-04-15] MEDS: Gabapentin 300 MG Capsule PO ×2 (00:47→21:04)
[2023-04-15 00:50] VITALS: BP 136/76; PULSE 102; RESP 18; TEMP 36.4; O2SAT 97
[2023-04-15] MEDS: 0.9% Normal Saline 1,000 ML 150 ML IV (03:31)
[2023-04-15 05:26] LABS: Absolute Lymphocyte Count 1.46 X10^3/uL (0.83-4.51); Absolute Neutrophil Count 4.5 X10^3/uL (2.0-7.7); Basophil# 0.03 X10^3/uL; Basophil% 0.5 % (0-1); Eosinophil# 0.01 X10^3/uL; Eosinophils% 0.2 % (0-5); Hematocrit 37.9 % (40-54); Hemoglobin 13.1 g/dL (13.0-16.5); Lymphocyte # 1.46 X10^3/ul (0.83-4.51); Lymphocyte % 22.1 % (19-41); Mean Corp Hgb Conc 34.6 g/dL (32-36); Mean Corpuscular Hgb 32.3 pg (27.0-32.0); Mean Corpuscular Volume 93.3 fL (80-94); Mean Platelet Vol. 10.3 fl (6.2-12.0); Monocyte# 0.63 X10^3/uL; Monocyte% 9.5 % (0-10); NRBC Flagged by Analyzer 0 % (0-5); Neutrophil # 4.47 X10^3/uL (2.7-7.7); Neutrophil % 67.4 % (47-70); Platelet Count 106 K/mm3 (150-450); RBC Distribution Width CV 14.2 % (11.6-14.6); RBC Distribution Width SD 49.1 fl (35.1-43.9); Red Blood Count 4.06 M/mm3 (4.6-6.2); White Blood Count 6.6 K/mm3 (4.4-11.0)
[2023-04-15 05:30] VITALS: BP 145/75; PULSE 101; RESP 18; TEMP 36.4; O2SAT 97
[2023-04-15 05:51] LABS: Anion Gap 4 (5-15); BUN 16 mg/dL (7-18); BUN/Creat Ratio 18.1 RATIO (10-20); Calcium,Total 8.6 mg/dL (8.5-10.1); Chloride 103 mmol/L (98-107); Creatinine, Serum 0.88 mg/dL (0.70-1.30); EST Glomerular Filtration Rate 95 mL/min (>60); Est Glom Filt Rate - Afr Amer 115 mL/min (>60); Estimated Creatinine Clearance 99.08 ml/min; Glucose 107 mg/dL (74-106); Magnesium 1.9 mg/dL (1.6-2.6); Phosphorus 2.9 mg/dL (2.5-4.9); Potassium 3.8 mmol/L (3.5-5.1); Sodium Level 137 mmol/L (136-145)
--- NOTE | 2023-04-15 07:53 | PN.HOSP_ITS ---
Reason for Visit Reason for Visit: Diagnoses Alcohol abuse, uncomplicated (04/14/23) Alcohol use, unspecified with intoxication, uncomplicated (04/14/23) Subjective Subjective Patient seen still remains tremulous Objective Data Objective Data Vital Signs: Vital Signs Temp Pulse Resp BP Pulse Ox O2 Del Method 97.5 F L 101 H 18 145/75 H 97 Room Air 04/15/23 05:30 04/15/23 05:30 04/15/23 05:30 04/15/23 05:30 04/15/23 05:30 04/15/23 05:30 Oxygen Delivery Method Room Air Weight: 93.2 kg Body Mass Index (BMI) 29.5 Intake & Output: Intake and Output for Last 24 Hours 04/13/23 04/14/23 04/15/23 23:59 23:59 23:59 Intake Total 3040 / 3040 1000 / 1000 Balance 3040 / 3040 1000 / 1000 Lab / Micro Data 04/15/23 04:40 04/15/23 04:40 Labs: Laboratory Results - last 24 hr 04/15/23 04:40: WBC 6.6, RBC 4.06 L, Hgb 13.1, Hct 37.9 L, MCV 93.3, MCH 32.3 H, MCHC 34.6, RDW Std Deviation 49.1 H, RDW Coeff of Guicho 14.2, Plt Count 106 L, MPV 10.3, Immature Gran % (Auto) 0.300, Neut % (Auto) 67.4, Lymph % (Auto) 22.1, [place] % (Auto) 9.5, Eos % (Auto) 0.2, Baso % (Auto) 0.5, Absolute Neuts (auto) 4.5, Absolute Lymphs (auto) 1.46, Nucleated RBC % 0, Sodium 137, Potassium 3.8, Chloride 103, Carbon Dioxide 30.0, Anion Gap 4 L, BUN 16, Creatinine 0.88, Estim Creat Clear Calc 99.08, Est GFR (MDRD) Af Amer 115, Est GFR (MDRD) Non-Af 95, BUN/Creatinine Ratio 18.1, Glucose 107 H, Calcium 8.6, Phosphorus 2.9, Magnesium 1.9 Physical Exam Narrative GENERAL: Restless HEENT: Atraumatic; normocephalic EYES; Anicteric, Normal Conjunctiva NECK; supple, normal thyroid, RESPIRATORY: Diminished to auscultation CARDIOVASCULAR: Regular S1 S2, GI: soft, normoactive bowel sounds, : No Renal angle tenderness; EXTREMITIES: No edema, no clubbing, MUSCULOSKELETAL: no muscle wasting NEURO: Awake; no lateralizing signs. SKIN: No Rash PSYCH; restless Assessment & Plan Assessment/Plan (1) Alcohol abuse: (2) Alcohol intoxication: QUALIFIERS: Complication of substance-induced condition: uncomplicated Qualified Code(s): F10.920 - Alcohol use, unspecified with intoxication, uncomplicated (3) Desire for detoxification: PLAN: Plan 53-year-old gentleman presenting with acute alcohol withdrawal 1. Acute alcohol withdrawal ? In a patient with chronic alcohol dependence admitted to regular nursing floor managed with phenobarb taper in addition to adjuvant medications for his symptoms ? Patient is on a phenobarb taper 2. Depression with anxiety ? Patient is on buspirone as well as clovoxamine did continue 3. Tobacco dependence - Counseled on cessation, offered nicotine patch for tobacco cravings 4. DVT prophylaxis Low risk, did encourage early ambulation Time spent in the patient's overall evaluation,decision-making process, review of diagnostic data, adjustment of management, discussion with other providers, nursing nursing and ancillary staff involved in patient's care documentation, 35 minutes Charges/Coding Visit Charges Inpatient E&M: 77099 Subs Hosp L2
[2023-04-15 09:00] VITALS: BP 141/92; PULSE 105; RESP 16; TEMP 36.6; O2SAT 95
[2023-04-15 09:17] VITALS: O2SAT 95
[2023-04-15] MEDS: Folic Acid 1 MG Tablet PO (09:44)
[2023-04-15] MEDS: Thiamine Hydrochloride 100 MG Tablet PO (09:45)
--- NOTE | 2023-04-15 11:54 | CHAPLAIN ---
Type of Pastoral Visit ___ Initial Visit _x__ Follow-up Visit ___ On-call Visit ___ General Patient Visit ___ Spiritual Assessment ___ Family Conference ___ Bereavement ___ Rapid Response ___ Code Blue ___ Other (describe below) Pastoral Care Referral From _x__ Patient ___ Family ___ Nurse ___ Physician ___ Maintenance Planner ___ Divorce Lawyer ___ Other (describe below) Sacrament/Intervention _x__ Active listening ___ Anointing ___ Anabaptist ___ Bereavement ___ Communion _x__ Radha exploration ___ ___ Life review _x__ Prayer ___ Reconciliation ___ Sacrament of Sick _x__ Supportive presence ___ Wedding ___ Other (describe below) Pastoral Comments patient is sitting in the recliner and reading the newspaper today; pt more relaxed today and admits that he is feeling better and able to eat well; pt states his goal to go home and start looking for a new job next week; pt also indicates desire to reach out to his children again as he has become disconnected recently; pt is also thinking about inquiring about a radha based counseling center for help; pt is offered time to talk, supportive presence, and prayer
[2023-04-15 16:00] VITALS: BP 136/74; PULSE 109; RESP 19; TEMP 36.6; O2SAT 96
[2023-04-15 21:00] VITALS: BP 136/75; PULSE 86; RESP 16; TEMP 36.6; O2SAT 98
[2023-04-16 00:24] VITALS: BP 119/69; PULSE 75; RESP 18; TEMP 36.4; O2SAT 97
[2023-04-16] MEDS: LORazepam 0.5 MG Tablet PO (00:26)
[2023-04-16] MEDS: traZODone 100 MG Tablet 300 MG PO (00:26)
[2023-04-16] MEDS: Phenobarbital 32.4 MG Tablet 64.8 MG PO ×3 (00:26→08:24)
[2023-04-16] MEDS: Acetaminophen 325 MG Tablet 650 MG PO (00:31)
[2023-04-16 04:00] VITALS: BP 133/90; PULSE 72; RESP 18; TEMP 36.6; O2SAT 97
[2023-04-16 05:29] LABS: Absolute Lymphocyte Count 1.37 X10^3/uL (0.83-4.51); Absolute Neutrophil Count 2.3 X10^3/uL (2.0-7.7); Basophil# 0.02 X10^3/uL; Basophil% 0.5 % (0-1); Eosinophil# 0.13 X10^3/uL; Eosinophils% 3.1 % (0-5); Hematocrit 37.5 % (40-54); Hemoglobin 12.8 g/dL (13.0-16.5); Lymphocyte # 1.37 X10^3/ul (0.83-4.51); Lymphocyte % 32.3 % (19-41); Mean Corp Hgb Conc 34.1 g/dL (32-36); Mean Corpuscular Hgb 31.9 pg (27.0-32.0); Mean Corpuscular Volume 93.5 fL (80-94); Mean Platelet Vol. 10.5 fl (6.2-12.0); Monocyte# 0.38 X10^3/uL; NRBC Flagged by Analyzer 0 % (0-5); Neutrophil # 2.32 X10^3/uL (2.7-7.7); Neutrophil % 54.6 % (47-70); POSITIVE COUNT YES; Platelet Count 88 K/mm3 (150-450); RBC Distribution Width CV 13.8 % (11.6-14.6); RBC Distribution Width SD 46.7 fl (35.1-43.9); Red Blood Count 4.01 M/mm3 (4.6-6.2); White Blood Count 4.2 K/mm3 (4.4-11.0)
[2023-04-16 05:30] LABS: Differential Indicated SCAN CRITERIA MET
[2023-04-16] MEDS: busPIRone 5 MG Tablet 10 MG PO (05:33)
[2023-04-16 05:54] LABS: Anion Gap 4 (5-15); BUN 11 mg/dL (7-18); BUN/Creat Ratio 13.2 RATIO (10-20); Calcium,Total 8.5 mg/dL (8.5-10.1); Chloride 105 mmol/L (98-107); Creatinine, Serum 0.84 mg/dL (0.70-1.30); EST Glomerular Filtration Rate 102 mL/min (>60); Est Glom Filt Rate - Afr Amer 123 mL/min (>60); Glucose 97 mg/dL (74-106); Potassium 3.9 mmol/L (3.5-5.1); Sodium Level 140 mmol/L (136-145)
[2023-04-16 06:12] LABS: Platelet Estimate MOD DEC (ADEQ)
--- NOTE | 2023-04-16 08:06 | PCM.PN.HOSP ---
Reason for Visit Reason for Visit: Diagnoses Alcohol abuse, uncomplicated (04/14/23) Alcohol use, unspecified with intoxication, uncomplicated (04/14/23) Subjective Subjective Patient seen demanding to be discharged Objective Data Objective Data Vital Signs: Vital Signs Temp Pulse Resp BP Pulse Ox O2 Del Method 97.8 F 72 18 133/90 H 97 Room Air 04/16/23 04:00 04/16/23 04:00 04/16/23 04:00 04/16/23 04:00 04/16/23 04:00 04/16/23 04:00 Oxygen Delivery Method Room Air Weight: 93.2 kg Body Mass Index (BMI) 29.5 Intake & Output: Intake and Output for Last 24 Hours 04/14/23 04/15/23 04/16/23 23:59 23:59 23:59 Intake Total 3040 / 3040 2960 / 2960 Balance 3040 / 3040 2960 / 2960 Lab / Micro Data 04/16/23 05:05 04/16/23 05:05 Labs: Laboratory Results - last 24 hr 04/16/23 05:05: WBC 4.2 L, RBC 4.01 L, Hgb 12.8 L, Hct 37.5 L, MCV 93.5, MCH 31.9, MCHC 34.1, RDW Std Deviation 46.7 H, RDW Coeff of [place] 13.8, Plt Count 88 L, MPV 10.5, Immature Gran % (Auto) 0.500, Neut % (Auto) 54.6, Lymph % (Auto) 32.3, [place] % (Auto) 9.0, Eos % (Auto) 3.1, Baso % (Auto) 0.5, Absolute Neuts (auto) 2.3, Absolute Lymphs (auto) 1.37, Nucleated RBC % 0, Platelet Estimate MOD DEC, Sodium 140, Potassium 3.9, Chloride 105, Carbon Dioxide 31.0, Anion Gap 4 L, BUN 11, Creatinine 0.84, Estim Creat Clear Calc 103.80, Est GFR (MDRD) Af Amer 123, Est GFR (MDRD) Non-Af 102, BUN/Creatinine Ratio 13.2, Glucose 97, Calcium 8.5 Physical Exam Narrative GENERAL: Restless HEENT: Atraumatic; normocephalic EYES; Anicteric, Normal Conjunctiva NECK; supple, normal thyroid, RESPIRATORY: Diminished to auscultation CARDIOVASCULAR: Regular S1 S2, GI: soft, normoactive bowel sounds, : No Renal angle tenderness; EXTREMITIES: No edema, no clubbing, MUSCULOSKELETAL: no muscle wasting NEURO: Awake; no lateralizing signs. SKIN: No Rash PSYCH; restless Assessment & Plan Assessment/Plan (1) Alcohol abuse: (2) Alcohol intoxication: QUALIFIERS: Complication of substance-induced condition: uncomplicated Qualified Code(s): F10.920 - Alcohol use, unspecified with intoxication, uncomplicated (3) Desire for detoxification: PLAN: Plan 53-year-old gentleman presenting with acute alcohol withdrawal 1. Acute alcohol withdrawal ? In a patient with chronic alcohol dependence admitted to regular nursing floor managed with phenobarb taper in addition to adjuvant medications for his symptoms ? Patient is on a phenobarb taper 2. Depression with anxiety ? Patient is on buspirone as well as clovoxamine did continue 3. Tobacco dependence - Counseled on cessation, offered nicotine patch for tobacco cravings 4. DVT prophylaxis Low risk, did encourage early ambulation Time spent in the patient's overall evaluation,decision-making process, review of diagnostic data, adjustment of management, discussion with other providers, nursing nursing and ancillary staff involved in patient's care documentation, 35 minutes Charges/Coding Visit Charges Inpatient E&M: 49144 Subs Hosp L2
[2023-04-16] MEDS: fluvoxaMINE Maleate 50 MG Tablet 150 MG PO (08:25)
[2023-04-16] MEDS: Folic Acid 1 MG Tablet PO (08:25)
[2023-04-16] MEDS: Thiamine Hydrochloride 100 MG Tablet PO (08:25)
[2023-04-16 09:34] VITALS: BP 123/77; PULSE 82; RESP 16; TEMP 36.3; O2SAT 97
--- NOTE | 2023-04-16 10:21 | PCM.DC.SUM ---
Providers Date of Admission: 04/14/23 Date of Discharge: 04/16/23 Primary Care Physician: Dr. Dagoberto Mari MD Reason For Visit: DESIRE FOR ALCOHOL DETOXIFICATION Diagnosis Discharge Diagnosis (1) Alcohol abuse: Status: Acute Code(s): F10.10 - Alcohol abuse, uncomplicated (2) Alcohol intoxication: Status: Acute Code(s): F10.929 - Alcohol use, unspecified with intoxication, unspecified Qualifiers: Complication of substance-induced condition: uncomplicated Qualified Code(s): F10.920 - Alcohol use, unspecified with intoxication, uncomplicated (3) Desire for detoxification: Status: Acute Plan 53-year-old gentleman presenting with acute alcohol withdrawal 1. Acute alcohol withdrawal ? In a patient with chronic alcohol dependence admitted to regular nursing floor managed with phenobarb taper in addition to adjuvant medications for his symptoms ? Patient is on a phenobarb taper 2. Depression with anxiety ? Patient is on buspirone as well as clovoxamine did continue 3. Tobacco dependence - Counseled on cessation, offered nicotine patch for tobacco cravings 4. DVT prophylaxis Low risk, did encourage early ambulation Time spent in the patient's overall evaluation,decision-making process, review of diagnostic data, adjustment of management, discussion with other providers, nursing nursing and ancillary staff involved in patient's care documentation, 35 minutes Medications at Discharge Home Medications trazodone 150 mg tablet 300 mg (2 x 150 mg) PO QHS PRN Sleep 30 days #60 tabs 05/11/18 buspirone 15 mg tablet 10 mg PO TID depression 05/22/22 gabapentin 300 mg capsule 300 mg PO QHS sleep 05/22/22 fluvoxamine 100 mg tablet 150 mg PO BID OCD 08/04/22 Hospital Course Summary of Care Provided Minutes Spent on Discharge: 35 Physical Exam Narrative GENERAL: Restless HEENT: Atraumatic; normocephalic EYES; Anicteric, Normal Conjunctiva NECK; supple, normal thyroid, RESPIRATORY: Diminished to auscultation CARDIOVASCULAR: Regular S1 S2, GI: soft, normoactive bowel sounds, : No Renal angle tenderness; EXTREMITIES: No edema, no clubbing, MUSCULOSKELETAL: no muscle wasting NEURO: Awake; no lateralizing signs. SKIN: No Rash PSYCH; restless Weight / BMI Weight Weight: 93.2 kg Body Mass Index (BMI) 29.5 ABG / Lab / Microbiology Data 04/16/23 05:05 04/16/23 05:05 Laboratory: Laboratory Results - last 24 hr 04/16/23 05:05: WBC 4.2 L, RBC 4.01 L, Hgb 12.8 L, Hct 37.5 L, MCV 93.5, MCH 31.9, MCHC 34.1, RDW Std Deviation 46.7 H, RDW Coeff of [place] 13.8, Plt Count 88 L, MPV 10.5, Immature Gran % (Auto) 0.500, Neut % (Auto) 54.6, Lymph % (Auto) 32.3, [place] % (Auto) 9.0, Eos % (Auto) 3.1, Baso % (Auto) 0.5, Absolute Neuts (auto) 2.3, Absolute Lymphs (auto) 1.37, Nucleated RBC % 0, Platelet Estimate MOD DEC, Sodium 140, Potassium 3.9, Chloride 105, Carbon Dioxide 31.0, Anion Gap 4 L, BUN 11, Creatinine 0.84, Estim Creat Clear Calc 103.80, Est GFR (MDRD) Af Amer 123, Est GFR (MDRD) Non-Af 102, BUN/Creatinine Ratio 13.2, Glucose 97, Calcium 8.5 D/C Instructions Discharge Diet: No restrictions Discharge Activity: Return to Normal Activity Call your doctor if you observe: Fever of 101 or Higher, Shortness of breath, Fainting spells and Chest pain Meaningful Use Info Meaningful Use Diagnoses (Choose all that apply): None applicable Discharge Plan Admission Admit Date/Time: 04/14/23 06:23 Attending Provider: Matthew Ulrich Primary Care Provider: Dagoberto Mari Discharge Orders/Prescriptions Prescriptions: Continued trazodone 150 MG tablet 300 mg PO QHS PRN (Reason: Sleep) 30 Days Qty: 60 0RF buspirone 15 mg tablet 10 mg PO TID Patient Comments: TAKE 1 TABLET BY MOUTH THREE TIMES DAILY gabapentin 300 MG capsule 300 mg PO QHS fluvoxamine 100 MG tablet 150 mg PO BID Referrals / Follow Up: Dagoberto Mari MD [Primary Care Provider] - In 1 Week Disposition Disposition (needs filled in before D/C Order can be placed): Home, Self Care Charges/Coding Visit Charges Inpatient E&M: 20948 Disch Hosp >30min
== END 2023-04-16 11:12 | disposition home or self-care (01) | DRG 897 ==
LOC: ED 06:46 → PCU 06:56
PROVIDERS: Admitting Provider Hospitalist; Emergency Provider Emergency Medicine; PCP Family Medicine; Visit Provider Internal Medicine
DX: F10.229 Alcohol dependence with intoxication, unspecified (principal); F10.239 Alcohol dependence with withdrawal, unspecified; I10 Essential (primary) hypertension; F32.A Depression, unspecified; F41.9 Anxiety disorder, unspecified; F17.210 Nicotine dependence, cigarettes, uncomplicated; Y90.8 Blood alcohol level of 240 mg/100 ml or more; Z79.899 Other long term (current) drug therapy
CPT/HCPCS: 36415; 71045; 80048; 80076; 82077; 83735; 84100; 85025; 93005; 99285; J7030; A4216

== ENCOUNTER 2023-06-25 19:35 | Inpatient (IN) | payer MEDICAID, SELFPAY ==
[2023-06-25 19:36] VITALS: BP 182/96; PULSE 134; RESP 18; TEMP 36.7; O2SAT 95; BMI 31.2
[2023-06-25 19:57] LABS: Absolute Lymphocyte Count 1.04 X10^3/uL (0.83-4.51); Absolute Neutrophil Count 8.1 X10^3/uL (2.0-7.7); Basophil# 0.04 X10^3/uL; Basophil% 0.3 % (0-1); Eosinophil# 1.93 X10^3/uL; Eosinophils% 16.2 % (0-5); Hematocrit 44.8 % (40-54); Hemoglobin 16.1 g/dL (13.0-16.5); Lymphocyte # 1.04 X10^3/ul (0.83-4.51); Lymphocyte % 8.7 % (19-41); Mean Corp Hgb Conc 35.9 g/dL (32-36); Mean Corpuscular Hgb 31.7 pg (27.0-32.0); Mean Corpuscular Volume 88.2 fL (80-94); Mean Platelet Vol. 10.1 fl (6.2-12.0); Monocyte# 0.84 X10^3/uL; NRBC Flagged by Analyzer 0 % (0-5); Neutrophil # 8.07 X10^3/uL (2.7-7.7); Neutrophil % 67.5 % (47-70); POSITIVE MORPHOLOGY YES; Platelet Count 143 K/mm3 (150-450); RBC Distribution Width CV 12.2 % (11.6-14.6); RBC Distribution Width SD 39.3 fl (35.1-43.9); Red Blood Count 5.08 M/mm3 (4.6-6.2)
--- NOTE | 2023-06-25 19:59 | EKG12_ITS ---
Test Reason : DYSRHYTHMIA Blood Pressure : / mmHG Vent. Rate : 119 BPM Atrial Rate : 119 BPM P-R Int : 140 ms QRS Dur : 082 ms QT Int : 324 ms P-R-T Axes : 037 -07 045 degrees QTc Int : 455 ms Sinus tachycardia Possible Inferior infarct , age undetermined Abnormal ECG Confirmed by ANDRE LAKE, HARJINDER ([id number]), dictionary editor ARMIDA TOMLINSON ([id number]) on 07/07/2023 8:01:37 AM Referred By: Confirmed By:JC POWELL MD
[2023-06-25 20:08] LABS: Differential Indicated SCAN CRITERIA MET
[2023-06-25] MEDS: 0.9% Normal Saline (1000mL) 1,000 ML 999 ML IV ×2 (20:10→23:51)
[2023-06-25 20:18] VITALS: BP 156/81; PULSE 115
[2023-06-25 20:20] VITALS: TEMP 36.8
[2023-06-25 20:21] LABS: Differential Comment SCANNED
--- NOTE | 2023-06-25 20:26 | EDS_ITS ---
HPI History of Present Illness Chief Complaint: Substance Abuse Narrative Narrative: 53-year-old male with history of alcohol abuse presenting for detox. Patient states he has been on a york for the last week. He states he drinks a large bottle of vodka indicating a 1.75 L daily. He states he drinks 20 passes out. Today he started vomiting and has epigastric/abdominal pain. He states he vomited up blood. Initially he told me he coughed this up, but now feels its more likely he vomited blood. He denies any black or bloody stools. He is on any blood thinners. He is never had a GI bleed in the past. No history of ulcers or esophageal varices. Patient does feel like he is in withdrawal and his last drink was this evening. [facility] Medical History DONTA (acute kidney injury) Alcohol abuse Anxiety Depression ETOH abuse History of foot fracture HTN (hypertension) Jaundice due to hepatitis Methamphetamine abuse OCD (obsessive compulsive disorder) Smoker Tobacco use Transaminitis Home Medications trazodone 150 mg tablet 300 mg (2 x 150 mg) PO QHS PRN Sleep 30 days #60 tabs 05/11/18 [Rx Last Taken 3 Days Ago ~05/19/22] buspirone 15 mg tablet 10 mg PO TID depression 05/22/22 [History Last Taken Unknown] gabapentin 300 mg capsule 300 mg PO QHS sleep 05/22/22 [History Last Taken Unkn own] fluvoxamine 100 mg tablet 150 mg PO BID OCD 08/04/22 [History Last Taken Unknown] Allergy/AdvReac Type Severity Reaction Status Date / Time amoxicillin AdvReac Upset Verified 06/25/23 19:39 Stomach Family History Mother No problems noted. Father CAD (coronary artery disease) Heart disease Myocardial infarction Surgical History S/P herniorrhaphy Social History household members: significant other housing: apartment Smoking Status: Current some day smoker tobacco type: cigarettes how long ago did patient quit smoking: Notes quit tobacco use ~ 2 weeks prior to current presentation. alcohol intake: current details: 1/2 gallon whiskey 80 proof daily. substance use type: former substance user Date of last use: Prior history of use, methamphetamine noted prior. ROS ROS ED Constitutional Constitutional ED: Denies chills, fever(s) or sweats Eyes Eyes: Denies blurry vision or change in vision ENT ENT ED: Denies ear pain or sore throat Cardiovascular Cardiovascular: Denies chest pain, palpitations or racing heartbeat Respiratory/Chest Respiratory/Chest: Denies cough, dyspnea or sputum Gastrointestinal Gastrointestinal: Reports abdominal pain, nausea, vomiting and other Details: Hematemesis ; Denies constipation or diarrhea Genitourinary Genitourinary ED: Denies dysuria, hematuria or urinary frequency Musculoskeletal Musculoskeletal: Denies arthralgias, myalgias or neck pain Integumentary Denies abscess, Abrasions or rash Neurologic Neurologic: Denies headache(s), paresthesias or weakness Psychiatric Psychiatric: Reports anxiety; Denies depression, suicidal ideation or suicidal thoughts Endocrine Endocrinology: Denies polydipsia or polyuria EXAM Physical Exam Const Vital Signs: 06/25/23 19:36 06/25/23 20:18 06/25/23 20:20 Temperature 98.1 F 98.3 F Temperature Source Temporal Oral Pulse Rate 134 H 115 H Respiratory Rate 18 Blood Pressure 182/96 H 156/81 H Blood Pressure Mean 124 106 Pulse Ox 95 Oxygen Delivery Method Room Air 06/25/23 21:00 Temperature Temperature Source Pulse Rate 116 H Respiratory Rate 18 Blood Pressure 149/69 H Blood Pressure Mean 95 Pulse Ox 97 Oxygen Delivery Method Room Air Positive well nourished and unkempt General Appearance ED: unkempt HEENT Reports moist mucous membranes atraumatic Eyes PERRL and EOMs intact bilaterally General Eye ED: Negative for pale conjunctiva or scleral icterus Neck no lymphadenopathy Chest Wall inspection of chest normal Resp normal respiratory effort and clear to auscultation bilaterally Auscultation: Negative for rales, rhonchi or wheezes Cardio regular rhythm Rate: tachycardic GI Palpation: tender epigastric Neuro oriented x3 and CN's II-XII intact bilaterally Sensorium / Orientation: alert Psych mental status grossly normal Appearance: unkempt MDM MDM MDM Narrative Medical decision making narrative: Patient presenting with epigastric pain, nausea, vomiting with what appears to be hematemesis based on his history although he did initially state that he coughed it up. Sb includes acute coronary syndrome, pneumonia, Boerhaave's, gastritis, gastric ulcer, PE, dissection, EtOH withdrawal, EtOH intoxication. CBC was obtained to assess white blood cell count, hemoglobin, platelets. INR to assess for coagulopathy. CMP to assess liver function, renal function, electrolytes, glucose. D-dimer to assess for PE. High-sensitivity troponin and EKG will be obtained to assess for ischemia/dysrhythmia. Chest x-ray to rule out pneumonia. Patient was typed and screened. Magnesium level was obtained as the patient has a history of low potassium and magnesium. CBC shows slight leukocytosis 12.0. Hemoglobin 16.1. Platelets 143. INR normal. D-dimer was elevated 1.05 however his troponin was normal. His total bilirubin is 1.2. AST 66 otherwise liver function is unremarkable. EKG normal sinus rhythm with a ventricular rate of 119 bpm without sign of ischemic change or ectopy on my interpretation. Chest x-ray showed no acute process on my interpretation and radiologist services and agrees. D-dimer was elevated so I did obtain a CTA of the chest and since he still having abdominal pain I did do a CTA of the chest abdomen pelvis which was normal. Patient was given 80 mg bolus of Protonix and placed on a drip. He is given Zofran for nausea and Ativan for withdrawal. On reevaluation at 1025 the patient is feeling much better. He has not vomited. There has been no more hematemesis. Discussed with hospitalist for admission. Impression: 1. Abdominal pain 2. Hematemesis 3. Nausea/vomiting 4. EtOH withdrawal 5. Upper GI bleed Lab Data Attestation: I reviewed the patient's lab results. Labs: Laboratory Results - last 24 hr 06/25/23 06/25/23 06/25/23 19:47 20:35 22:07 WBC 12.0 H RBC 5.08 Hgb 16.1 Hct 44.8 MCV 88.2 MCH 31.7 MCHC 35.9 RDW Std Deviation 39.3 RDW Coeff of [place]ich[place] 12.2 Plt Count 143 L MPV 10.1 Immature Gran % (Auto) 0.300 Neut % (Auto) 67.5 Lymph % (Auto) 8.7 L [place] % (Auto) 7.0 Eos % (Auto) 16.2 H Baso % (Auto) 0.3 Absolute Neuts (auto) 8.1 H Absolute Lymphs (auto) 1.04 Nucleated RBC % 0 Differential Comment SCANNED PT 12.5 INR 0.9 D-Dimer Quant (PE/DVT) 1.05 H* Sodium 131 L Potassium 4.5 Chloride 93 L Carbon Dioxide 25.0 Anion Gap 13 BUN 25 H Creatinine 1.24 Estim Creat Clear Calc 70.32 Est GFR (MDRD) Af Amer 78 Est GFR (MDRD) Non-Af 65 BUN/Creatinine Ratio 20.2 H Glucose 195 H Calcium 9.6 Magnesium 1.7 Total Bilirubin 1.20 H Direct Bilirubin 0.26 AST 66 H ALT 40 Alkaline Phosphatase 87 Troponin I High Sens 9 Total Protein 8.1 Albumin 4.1 Globulin 4.0 Lipase 48 Urine Opiates Screen NEGATIVE Urine Methadone Screen NEGATIVE Ur Barbiturates Screen NEGATIVE Ur Phencyclidine Scrn NEGATIVE Ur Amphetamines Screen NEGATIVE MDMA (Ecstasy) Screen NEGATIVE U Benzodiazepines Scrn NEGATIVE Urine Cocaine Screen NEGATIVE U Cannabinoids Screen NEGATIVE Ur Drug Screen Comment Ethyl Alcohol < 3.0 Blood Type O POSITIVE Antibody Screen NEGATIVE Radiography Diagnostic Testing: Clinical Impression(s) from Imaging Studies Chest X-Ray 06/25/23 20:39 IMPRESSION: Normal x-ray examination of the chest. Electronically Signed: Randell Nassar MD at 21:22 EDT , Chest/Abdomen/Pelvis CTA 06/25/23 20:47 IMPRESSION: No significant abnormalities of the contrast-enhanced CT of the chest. Fatty liver. Bilateral nonobstructing renal stones. No other definite acute or significant abnormality seen. Electronically Signed: Randell Nassar MD at 21:42 EDT , Discharge Plan Triage Chief Complaint: Substance Abuse ED Provider: Brady Correia Dx/Rx/DC Orders Prescriptions: No Action trazodone 150 MG tablet 300 mg PO QHS PRN (Reason: Sleep) 30 Days Qty: 60 0RF buspirone 15 mg tablet 10 mg PO TID Patient Comments: TAKE 1 TABLET BY MOUTH THREE TIMES DAILY gabapentin 300 MG capsule 300 mg PO QHS fluvoxamine 100 MG tablet 150 mg PO BID Primary Care Provider: Dagoberto Mari Referrals: Dagoberto Mari MD [Primary Care Provider] -
[2023-06-25 20:28] LABS: Alcohol, Blood (Medical)-Serum < 3.0 mg/dL; Anion Gap 13 (5-15); BUN 25 mg/dL (7-18); BUN/Creat Ratio 20.2 RATIO (10-20); Calcium,Total 9.6 mg/dL (8.5-10.1); Chloride 93 mmol/L (98-107); Creatinine, Serum 1.24 mg/dL (0.70-1.30); EST Glomerular Filtration Rate 65 mL/min (>60); Est Glom Filt Rate - Afr Amer 78 mL/min (>60); Estimated Creatinine Clearance 70.32 ml/min; Glucose 195 mg/dL (74-106); Potassium 4.5 mmol/L (3.5-5.1); Sodium Level 131 mmol/L (136-145)
[2023-06-25 20:32] LABS: D-Dimer Quantitative (DVT/PE) 1.05 FEU/ug/m (0.27-0.49)
[2023-06-25] MEDS: Ondansetron 4 MG/2 ML Vial IV (20:33)
[2023-06-25] MEDS: LORazepam 2 MG/ML Syringe IV (20:33)
--- NOTE | 2023-06-25 20:39 | RAD_ITS ---
STUDY: X-RAY CHEST REASON FOR EXAM: Male, 53 years old. cough TECHNIQUE: Single AP portable view of the chest. COMPARISON: 04/14/2023. FINDINGS: The lungs are clear and expanded. There is no demonstrated pleural abnormality. Normal size heart. Normal mediastinum and erik. Normal visualized pulmonary arteries. Normal visualized aortic arch and descending thoracic aorta. Normal visualized thoracic spine. Normal visualized ribs, clavicles, and shoulders. There is no demonstrated abnormality of the visualized soft tissue structures of the upper abdomen. RAD/Chest 1 View (Portable) IMPRESSION: Normal x-ray examination of the chest. Electronically Signed: Randell Nassar MD at 21:22 EDT ,
[2023-06-25 20:42] LABS: Lipase 48 U/L (13-75)
[2023-06-25 20:44] LABS: International Normalized Ratio 0.9; Prothrombin Time (Protime)PT. 12.5 SECONDS (11.7-14.9)
[2023-06-25 20:45] LABS: AST(SGOT) 66 U/L (15-37); Alanine Aminotransfer ALT/SGPT 40 U/L (16-61); Albumin, Serum 4.1 g/dL (3.2-5.0); Alkaline Phosphatase 87 U/L (45-117); Bilirubin, Direct 0.26 mg/dL (0.00-0.30); Magnesium 1.7 mg/dL (1.6-2.6); Protein, Total 8.1 g/dL (6.4-8.2); Troponin-I HS 9 pg/mL (3.0-78.0)
[2023-06-25] MEDS: Pantoprazole Sodium 80 MG in 0.9% Normal Saline (50mL Bag) 15 ML 420 MG IV BOLUS (20:45)
--- NOTE | 2023-06-25 20:47 | CT_ITS ---
INDICATION: abdominal pain EXAMINATION: CTA CHEST, ABDOMEN AND PELVIS WITH CONTRAST - TECHNIQUE: A CTA of the chest, abdomen, and pelvis is obtained with sagittal and coronal reconstructed MIP views. Three-dimensional surface rendered sequence of the thoracic and abdominal aorta was obtained. A radiation dose optimization technique was used for this scan. mL of [id number]. Oral contrast: None. COMPARISON: None. FINDINGS: CT CHEST: THORACIC AORTA: No atheromatous disease, no aneurysmal changes or dissection. ABDOMINAL AORTA: No aneurysm or dissection. No significant atheromatous disease. The iliac arteries are unremarkable. LUNGS: The lungs are well-expanded without acute or chronic changes. No effusions or pneumothorax. MEDIASTINUM: The thyroid gland is normal. No mediastinal or hilar adenopathy. HEART: Heart is normal size. No pericardial effusion. No CAD. CT ABDOMEN AND PELVIS: LIVER: Normal shape and size of the liver. Marked fatty infiltration. No masses identified. GALLBLADDER: The CBD is normal. Normal gallbladder. SPLEEN: Normal. PANCREAS: No masses or inflammation. ADRENAL GLANDS: Normal. KIDNEYS AND URETERS: The kidneys both enhance appropriately. There are normal size and shape. No hydronephrosis. 3 mm nonobstructing lower pole stone of the right kidney. 2 or 3 small nonobstructing stones of the left kidney. No renal masses or cysts. STOMACH: Normal. SMALL BOWEL: No abnormal distention of the small bowel. MESENTERY: No mesenteric inflammation. No ascites. COLON: No significant diverticulosis, masses or inflammation. The colon otherwise is normal. There is a large fatty ileocecal valve. APPENDIX: The appendix is visualized and normal. IVC: Normal. RETROPERITONEUM: No retroperitoneal lymphadenopathy. PELVIC STRUCTURES: Normal bladder. SOFT TISSUES ABDOMEN: The anterior abdominal wall is normal. SOFT TISSUE CHEST: The extrathoracic soft tissues are normal. BONES: Degenerative changes. No acute abnormality. CT/CTA Chst, Abd, Pel W and/or WO IMPRESSION: No significant abnormalities of the contrast-enhanced CT of the chest. Fatty liver. Bilateral nonobstructing renal stones. No other definite acute or significant abnormality seen. Electronically Signed: Randell Nassar MD at 21:42 EDT ,
[2023-06-25 21:00] VITALS: BP 149/69; PULSE 116; RESP 18; O2SAT 97
[2023-06-25] MEDS: Pantoprazole Sodium 80 MG in 0.9% Normal Saline (100mL Bag) 80 ML 10 MG CONT INF (21:49)
--- NOTE | 2023-06-25 22:16 | PCM.HP.STD ---
HPI - General General Date of Admission: 06/25/23 Date of Service: 06/25/23 Chief Complaint: Alcohol withdrawal, bout of nausea and hematemesis. HPI Narrative The patient is a 53 y/o M w/ PMHx: Obesity, Anxiety and Depression/OCD, Hx Polysubstance abuse (Methamphetamines), EtOH abuse w/ chronic transaminitis, Tobacco use who presents to the [facility] ED on 06/25/23 with history of an alcohol york for the last week drinking at least a large bottle of vodka approximately 1.75 L daily reporting that he did pass out eventually during 1 of these episodes and recently started having epigastric and abdominal discomfort with emesis which was blood-tinged with no recent black or bloody appearing stools and not on any blood thinners with no history of previous GI bleed or any history of known ulcers or esophageal varices with last drink the day prior with onset of alcohol withdrawal symptoms including nausea, emesis, tremulous, mild agitation, tactile disturbances prompting ED evaluation. He notes only one episode of this happening and this has not occurred prior. Patient has been through alcohol withdrawal treatment several times and unfortunately following discharge immediately starts drinking again. Work-up in the ED included T98.1, heart rate initially 134 with most recent repeat 115, BP initially 182/96 with most recent repeat 156/81, respiratory rate 18, 95% on room air, CBC with WBC 12, hemoglobin 16.1, platelets 143 with left shift, coags with PT 12.5, INR 0.9, D-dimer 1.05, CMP with sodium 131, chloride 93, BUN/creatinine 25/1.24, glucose 195, magnesium 1.7, total bilirubin 1.20, direct bilirubin 0.26, AST/ALT 6 6/40, alk phos 87, troponin 9, lipase 48, ethyl alcohol less than 3, chest x-ray with no acute cardiopulmonary findings, CTA chest/abdomen/pelvis with no significant abnormality, fatty liver, bilaterally nonobstructing renal stones with no other definitive acute abnormality EKG with sinus tachycardia with no acute evidence of ischemia. In the ED patient ministered 1 L normal saline, pantoprazole bolus and drip, lorazepam 2 mg IV x1, Zofran 4 mg IV x1. [facility] Medical History (Updated 06/25/23 @ 22:[address] Orly Rasmussen MD) Alcohol abuse Anxiety Depression ETOH abuse History of foot fracture HTN (hypertension) Methamphetamine abuse OCD (obsessive compulsive disorder) Tobacco use Transaminitis Home Medications trazodone 150 mg tablet 300 mg (2 x 150 mg) PO QHS PRN Sleep 30 days #60 tabs 05/11/18 [Rx Last Taken 3 Days Ago ~05/19/22] buspirone 15 mg tablet 10 mg PO TID depression 05/22/22 [History Last Taken Unknown] gabapentin 300 mg capsule 300 mg PO QHS sleep 05/22/22 [History Last Taken Unknown] fluvoxamine 100 mg tablet 150 mg PO BID OCD 08/04/22 [History Last Taken Unknown] Allergy/AdvReac Type Severity Reaction Status Date / Time amoxicillin AdvReac Upset Verified 06/25/23 19:39 Stomach Family History Mother No problems noted. Father CAD (coronary artery disease) Heart disease Myocardial infarction Surgical History S/P herniorrhaphy Social History (Updated 06/25/23 @ 22:[address] Orly Rasmussen MD) household members: significant other housing: apartment Smoking Status: Current some day smoker tobacco type: cigarettes Smoking packs per day: 3 Smoking cigarettes per day: 60.0 alcohol intake: current details: Prior 1/2 gallon whiskey 80 proof daily->currently drinking heavy Vodka. substance use type: former substance user Date of last use: Prior history of use, methamphetamine noted prior. and methamphetamine ROS ROS Narrative Admission Review of Systems: CONSTITUTIONAL: No weight loss, fever, chills, + weakness or fatigue. HEENT: Eyes: No visual loss, blurred vision, double vision or yellow sclerae. Ears, Nose, Throat: No hearing loss, sneezing, congestion, runny nose or sore throat. SKIN: + Varios abrasions and staged ecchymoses. CARDIOVASCULAR: No chest pain, chest pressure or chest discomfort, palpitations, edema, orthopnea, syncopal events. RESPIRATORY: No shortness of breath, cough or sputum, wheezing, hemoptysis. GASTROINTESTINAL: + anorexia, nausea with emesis, hemoptysis with emesis noted to be blood-tinged, epigastric abdominal discomfort. No diarrhea, melena, BRBPR. GENITOURINARY: No dysuria, frequency, urgency or retention. NEUROLOGICAL: + headache, tremors, tactile disturbances, No dizziness, syncope, paralysis, numbness or tingling in the extremities, focal weakness, change in bowel or bladder control, seizure. MUSCULOSKELETAL: + muscle, back pain, joint pain or stiffness. HEMATOLOGIC: No anemia, + bleeding and bruising. LYMPHATICS: No enlarged nodes. No history of splenectomy. PSYCHIATRIC:+ history of depression or anxiety. ENDOCRINOLOGIC: No reports of sweating, cold or heat intolerance. No polyuria or polydipsia. ALLERGIES: No history of asthma, hives, eczema or rhinitis. Vital Signs Vital Signs Vital Signs: 06/25/23 19:36 06/25/23 20:18 06/25/23 20:20 Temperature 98.1 F 98.3 F Temperature Source Temporal Oral Pulse Rate 134 H 115 H Respiratory Rate 18 Blood Pressure 182/96 H 156/81 H Blood Pressure Mean 124 106 Pulse Ox 95 Oxygen Delivery Method Room Air 06/25/23 21:00 Temperature Temperature Source Pulse Rate 116 H Respiratory Rate 18 Blood Pressure 149/69 H Blood Pressure Mean 95 Pulse Ox 97 Oxygen Delivery Method Room Air Weight Weight: 218 lb 0.595 oz Body Mass Index (BMI) 31.2 Physical Exam Narrative Physical Examination: General: Awake, alert, oriented to self, place and recent events, cooperative but mildly tremulous, restless. Skin: Normal color, normal turgor, no icterus, no cyanosis except for staged ecchymoses and abrasions. HEENT: AT/NC, EOMI, PERRLA, dry MM, no carotid bruits or JVD noted. Lungs: Mildly diminished, greater bases, appropriate effort, no rales, ronchi or wheezing. Heart: Tachycardic with regular rhythm; no gallop, rub audible. Abdomen: Soft, discomfort to palpitation primarily epigastric region with no rebound or guarding, no obvious distention, hyperactive BS, + HM. Extremities: No cyanosis, clubbing, or edema. Neurological: Patient awake, alert, oriented as noted, cognitive function suspect mildly decreased from baseline given withdrawal acute presentation, restless, mildly tremulous, pupils equally reactive to light and accommodation, cranial nerves grossly normal, moving all 4 extremities, no focal deficits, strength moderately globally decreased secondary to acute withdrawal. Psychiatric: Affect mildly anxious, no acute evidence of depressive feelings but does have underlying history concurrently. Results Lab / Micro Data 06/25/23 19:47 06/25/23 19:47 Labs: Laboratory Results - last 24 hr 06/25/23 19:47: WBC 12.0 H, RBC 5.08, Hgb 16.1, Hct 44.8, MCV 88.2, MCH 31.7, MCHC 35.9, RDW Std Deviation 39.3, RDW Coeff of [place] 12.2, Plt Count 143 L, MPV 10.1, Immature Gran % (Auto) 0.300, Neut % (Auto) 67.5, Lymph % (Auto) 8.7 L, [place] % (Auto) 7.0, Eos % (Auto) 16.2 H, Baso % (Auto) 0.3, Absolute Neuts (auto) 8.1 H, Absolute Lymphs (auto) 1.04, Nucleated RBC % 0, Differential Comment SCANNED, PT 12.5, INR 0.9, D-Dimer Quant (PE/DVT) 1.05 H*, Sodium 131 L, Potassium 4.5, Chloride 93 L, Carbon Dioxide 25.0, Anion Gap 13, BUN 25 H, Creatinine 1.24, Estim Creat Clear Calc 70.32, Est GFR (MDRD) Af Amer 78, Est GFR (MDRD) Non-Af 65, BUN/Creatinine Ratio 20.2 H, Glucose 195 H, Calcium 9.6, Magnesium 1.7, Total Bilirubin 1.20 H, Direct Bilirubin 0.26, AST 66 H, ALT 40, Alkaline Phosphatase 87, Troponin I High Sens 9, Total Protein 8.1, Albumin 4.1, Globulin 4.0, Lipase 48, Ethyl Alcohol < 3.0 06/25/23 20:35: Blood Type O POSITIVE, Antibody Screen NEGATIVE 06/25/23 22:07: Ur Drug Screen Comment Radiology Impression Chest X-Ray 06/25/23 20:39 IMPRESSION: Normal x-ray examination of the chest. Electronically Signed: Randell Nassar MD at 21:22 EDT , Chest/Abdomen/Pelvis CTA 06/25/23 20:47 IMPRESSION: No significant abnormalities of the contrast-enhanced CT of the chest. Fatty liver. Bilateral nonobstructing renal stones. No other definite acute or significant abnormality seen. Electronically Signed: Randell Nassar MD at 21:42 EDT , Assessment & Plan Assessment/Plan (1) Alcohol withdrawal: PLAN: Plan The patient is a 53 y/o M w/ PMHx: Obesity, Anxiety and Depression/OCD, Hx Polysubstance abuse (Methamphetamines), EtOH abuse w/ chronic transaminitis, Tobacco use who presents to the [facility] ED on 06/25/23 with history of an alcohol york for the last week drinking at least a large bottle of vodka approximately 1.75 L daily reporting that he did pass out eventually during 1 of these episodes and recently started having epigastric and abdominal discomfort with emesis which was blood-tinged with no recent black or bloody appearing stools and not on any blood thinners with no history of previous GI bleed or any history of known ulcers or esophageal varices with last drink the day prior with onset of alcohol withdrawal symptoms including nausea, emesis, tremulous, mild agitation, tactile disturbances prompting ED evaluation. #1. Acute EtOH Withdrawal with chronic transaminitis and mild hyperbilirubinemia, mild complicated by #2: Will admit to [facility] telemetry given concurrent presentation #2 however vital signs stable. Given interest in sobriety, will initiate and continue on protocol with taper course of ativan as discussed with patient notable sedation/lightheadedness and dizziness with phenobarbital prior, as needed gabapentin, Catapres, Bentyl, Vistaril, IV fluids, IV antiemetics, Tylenol as needed for pain. Will consult Case management for assistance for transition to next level of rehabilitation care. Mag level already obtained per ED and noted to be 1.7, phos level requested and pending. Maintain on CIWA protocol concurrently. #2. Concern Acute Upper GI bleed with EtOH abuse as noted #1: CT imaging with no acute finding. Patient w/ hematemesis, admission Hgb 16.1, will maintain on IVFs, continue to cycle H+Hs, ED already initiated type and screen, will maintain on continuous IV PPI drip, given alcohol abuse history we will also initiate octreotide and placed on prophylaxis with IV Rocephin given unclear cirrhotic history with GI consulted and evaluation pending. #3. Hyperglycemia: Possibly stress response, admission glucose 195, hemoglobin A1c requested. #4. Anxiety and depression/OCD: We will continue patient home fluvoxamine, gabapentin, BuSpar and trazodone regimen. Case management/social human services assistants consulted given likely contributes to his substance abuse. #5. History polysubstance abuse: Patient with history of previous methamphetamine usage, urine drug screen requested and is pending. #6. Tobacco Abuse: Encouraged cessation, inpatient consultation per RT, NR if desired. #7. Obesity: Weight loss and lifestyle changes encouraged. #8. DVT Prophylaxis: SCDs. Charges/Coding Visit Charges Inpatient E&M: 24182 Init Hosp L3
[2023-06-25 22:32] LABS: Amphetamine Urine VISTA NEGATIVE (<1000 ng/mL); Barbiturate Urine VISTA NEGATIVE (< 200 ng/mL); Benzodiazepine Urine VISTA NEGATIVE (< 200 ng/mL); Cocaine Urine VISTA NEGATIVE (< 300 ng/mL); Ecstacy Urine VISTA NEGATIVE (< 500 ng/mL); Methadone Urine VISTA NEGATIVE (< 300 ng/mL); PCP Urine VISTA NEGATIVE (< 25 ng/mL); THC Urine VISTA NEGATIVE (< 50 ng/mL); Vista UDS pH Range 6
[2023-06-25 22:40] LABS: Phosphorus 3.7 mg/dL (2.5-4.9)
--- NOTE | 2023-06-25 23:00 | CON.PCM.GI_ITS ---
HPI Consult Data Date of Consult: 06/25/23 HPI Narrative Reason for Consultation: Hematemesis HPI Narrative: ALTHEA TIERNEY, is a 53 M who presents after vomiting multiple episodes of coffee-ground emesis. He has a past medical history of Polysubstance abuse (Methamphetamines), EtOH abuse w/ chronic transaminitis, Tobacco use . He presents to the [facility] ED on 06/25/23 with history of an alcohol york for the last week drinking at least a large bottle of vodka approximately 1.75 L daily reporting that he did pass out eventually during 1 of these episodes and recently started having epigastric and abdominal discomfort with emesis which w as blood-tinge. His last drink the day prior with onset of alcohol withdrawal symptoms including nausea, emesis, tremulous, mild agitation, tactile disturbances prompting ED evaluation. He notes only one episode of this happening and this has not occurred prior. Patient has been through alcohol withdrawal treatment several times and unfortunately following discharge immediately starts drinking again. Work-up in the ED included T98.1, heart rate initially 134 with most recent repeat 115, BP initially 182/96 with most recent repeat 156/81, respiratory rate 18, 95% on room air, CBC with WBC 12, hemoglobin 16.1, platelets 143 with left shift, coags with PT 12.5, INR 0.9, D-dimer 1.05, CMP with sodium 131, chloride 93, BUN/creatinine 25/1.24, glucose 195, magnesium 1.7, total bilirubin 1.20, direct bilirubin 0.26, AST/ALT 6 6/40, alk phos 87, troponin 9, lipase 48, ethyl alcohol less than 3, chest x-ray with no acute cardiopulmonary findings, CTA chest/abdomen/pelvis with no significant abnormality, fatty liver, bilaterally nonobstructing renal stones with no other definitive acute abnormality EKG with sinus tachycardia with no acute evidence of ischemia. In the ED patient ministered 1 L normal saline, pantoprazole bolus and drip, lorazepam 2 mg IV x1, Zofran 4 mg IV x1. [facility] Medical History (Updated 07/04/23 @ 18:[address] Rebollar Friend, DO) Alcohol abuse Anxiety Depression ETOH abuse History of foot fracture HTN (hypertension) Methamphetamine abuse OCD (obsessive compulsive disorder) Tobacco use Transaminitis Home Medications trazodone 150 mg tablet 300 mg (2 x 150 mg) PO QHS PRN Sleep 30 days #60 tabs 05/11/18 [Rx Last Taken 3 Days Ago ~05/19/22] buspirone 15 mg tablet 10 mg PO TID depression 05/22/22 [History Last Taken 06/25/23] gabapentin 300 mg capsule 300 mg PO QHS sleep 05/22/22 [History Last Taken 06/25/23] fluvoxamine 100 mg tablet 150 mg PO BID OCD 08/04/22 [History Last Taken 06/25/23] Allergy/AdvReac Type Severity Reaction Status Date / Time amoxicillin AdvReac Upset Verified 06/25/23 19:39 Stomach Family History Mother No problems noted. Father CAD (coronary artery disease) Heart disease Myocardial infarction Surgical History S/P herniorrhaphy Social History (Updated 06/25/23 @ 22:[address] Orly Rasmussen MD) household members: significant other housing: apartment Smoking Status: Current some day smoker tobacco type: cigarettes alcohol intake: current details: Prior 1/2 gallon whiskey 80 proof daily->currently drinking heavy Vodka. substance use type: former substance user Date of last use: Prior history of use, methamphetamine noted prior. and methamphetamine ROS ROS Narrative Admission Review of Systems: CONSTITUTIONAL: No weight loss, fever, chills, + weakness or fatigue. HEENT: Eyes: No visual loss, blurred vision, double vision or yellow sclerae. Ears, Nose, Throat: No hearing loss, sneezing, congestion, runny nose or sore throat. SKIN: + Varios abrasions and staged ecchymoses. CARDIOVASCULAR: No chest pain, chest pressure or chest discomfort, palpitations, edema, orthopnea, syncopal events. RESPIRATORY: No shortness of breath, cough or sputum, wheezing, hemoptysis. GASTROINTESTINAL: + anorexia, nausea with emesis, hemoptysis with emesis noted to be blood-tinged, epigastric abdominal discomfort. No diarrhea, melena, BRBPR. GENITOURINARY: No dysuria, frequency, urgency or retention. NEUROLOGICAL: + headache, tremors, tactile disturbances, No dizziness, syncope, paralysis, numbness or tingling in the extremities, focal weakness, change in bowel or bladder control, seizure. MUSCULOSKELETAL: + muscle, back pain, joint pain or stiffness. HEMATOLOGIC: No anemia, + bleeding and bruising. LYMPHATICS: No enlarged nodes. No history of splenectomy. PSYCHIATRIC:+ history of depression or anxiety. ENDOCRINOLOGIC: No reports of sweating, cold or heat intolerance. No polyuria or polydipsia. ALLERGIES: No history of asthma, hives, eczema or rhinitis. Physical Exam Narrative Seen and examined. Overall, feels good. No nausea vomiting or hematemesis. Patient on soft diet. Patient pulled out IV line last night. On IV ceftriaxone. Physical exam General: Alert, Oriented x3, Cooperative HEENT: Atraumatic, PERRLA, EOMI, Normocephalic Oral: Oral mucosa moist. No Gingival or Mucosal Lesions/ Ulcerations Neck: Supple, No JVD, Negative Carotid Bruits Lungs: Air entry diminished in bilateral lung bases. No crepitation/rhonchi Cardiovascular: Regular rate, Regular Rhythm, Normal S1, Normal S2, No murmurs Abdomen: Bowel Sounds Present, Soft, Non Tender, Non-Distended : No renal angle tenderness. No suprapubic tenderness. Extremities: No edema, Capillary Refill Less than 3 Seconds Skin: No rashes, No breakdown Musculoskeletal: No Tenderness to Palpation of Joints or Extremities. No tremors. ROM full and intact. Neurological: Cranial nerves II-XII grossly intact, DTR 2+/4. No acute focal neurological deficit. Psych/Mental Status: Flat affect. Lab / Micro Data 06/26/23 03:57 06/26/23 03:57 Assessment & Plan Assessment/Plan (1) Alcohol withdrawal: QUALIFIERS: Complication of substance-induced condition: with unspecified complication Qualified Code(s): F10.939 - Alcohol use, unspecified with withdrawal, unspecified PLAN: Plan The patient is a 53 y/o M with Hx Polysubstance abuse (Methamphetamines), EtOH abuse w/ chronic transaminitis, Tobacco use who presents to the [facility] ED on 06/25/23 with history of an alcohol york for the last week drinking at least a large bottle of vodka approximately 1.75 L daily. He is reporting that he did pass out eventually during 1 of these episodes and recently started having epigastric and abdominal discomfort with emesis which was blood-tinged. Acute EtOH Withdrawal with chronic transaminitis and mild hyperbilirubinemia, he likely has alcoholic hepatitis. He does not need steroids at this time. His Madrey score is 30. Continue to monitor mental status and check an ammonia. Concern Acute Upper GI bleed with EtOH abuse as noted #1: CT imaging with no acute finding. Patient w/ hematemesis, admission Hgb 16.1, will maintain on IVFs, continue to cycle H+Hs, ED already initiated type and screen, will maintain on continuous IV PPI drip, given alcohol abuse history we will also initiate octreotide and placed on prophylaxis with IV Rocephin. Also recommend an upper endoscopy to evaluate his upper GI tract. Charges/Coding Visit Charges Inpatient E&M: 21973 Init Hosp L3
[2023-06-25 23:24] VITALS: BMI 31.0
[2023-06-25 23:33] VITALS: BP 160/86; PULSE 110; RESP 18; TEMP 37.7; O2SAT 94
[2023-06-26] VITALS (12 sets, daily range): BP systolic 121–154; BP diastolic 64–98; PULSE 74–107; RESP 16–18; TEMP 36.6–37.3; O2SAT 94–98; BMI 31.6
[2023-06-26 00:15] LABS: Hemoglobin 14.3 g/dL (13.0-16.5)
[2023-06-26] MEDS: 0.9% Normal Saline (250mL Bag) 250 ML 15 ML IV ×2 (00:15→00:16)
[2023-06-26] MEDS: Octreotide 0.5 MG in Dextrose 5%-Water (250mL Bag) 250 ML 12.5 MG CONT INF (00:15)
[2023-06-26] MEDS: 0.9% Saline Lock 10 ML Syringe IV (00:18)
[2023-06-26] MEDS: LORazepam 1 MG Tablet 2 MG PO ×4 (00:22→13:16)
[2023-06-26] MEDS: 0.9% Normal Saline (1000mL) 1,000 ML 150 ML IV ×3 (00:44→16:59)
[2023-06-26] MEDS: traZODone 100 MG Tablet 300 MG PO (03:04)
[2023-06-26 04:14] LABS: Absolute Lymphocyte Count 1.06 X10^3/uL (0.83-4.51); Absolute Neutrophil Count 4.1 X10^3/uL (2.0-7.7); Basophil# 0.03 X10^3/uL; Basophil% 0.5 % (0-1); Hematocrit 37.3 % (40-54); Hemoglobin 13.1 g/dL (13.0-16.5); Lymphocyte # 1.06 X10^3/ul (0.83-4.51); Mean Corp Hgb Conc 35.1 g/dL (32-36); Mean Corpuscular Hgb 31.8 pg (27.0-32.0); Mean Corpuscular Volume 90.5 fL (80-94); Mean Platelet Vol. 9.5 fl (6.2-12.0); Monocyte# 0.65 X10^3/uL; NRBC Flagged by Analyzer 0 % (0-5); Neutrophil # 4.13 X10^3/uL (2.7-7.7); Neutrophil % 70.2 % (47-70); POSITIVE COUNT YES; Platelet Count 98 K/mm3 (150-450); RBC Distribution Width CV 12.4 % (11.6-14.6); RBC Distribution Width SD 40.6 fl (35.1-43.9); Red Blood Count 4.12 M/mm3 (4.6-6.2); White Blood Count 5.9 K/mm3 (4.4-11.0)
[2023-06-26 04:49] LABS: AST(SGOT) 41 U/L (15-37); Alanine Aminotransfer ALT/SGPT 30 U/L (16-61); Albumin, Serum 3.2 g/dL (3.2-5.0); Alkaline Phosphatase 69 U/L (45-117); Anion Gap 5 (5-15); BUN 18 mg/dL (7-18); Calcium,Total 8.1 mg/dL (8.5-10.1); Chloride 101 mmol/L (98-107); Creatinine, Serum 0.86 mg/dL (0.70-1.30); EST Glomerular Filtration Rate 99 mL/min (>60); Est Glom Filt Rate - Afr Amer 120 mL/min (>60); Estimated Creatinine Clearance 101.39 ml/min; Globulin 3.2 g/dL (2.2-4.2); Glucose 127 mg/dL (74-106); Potassium 3.8 mmol/L (3.5-5.1); Protein, Total 6.4 g/dL (6.4-8.2); Sodium Level 136 mmol/L (136-145)
[2023-06-26] MEDS: busPIRone 5 MG Tablet 10 MG PO ×3 (06:00→21:06)
--- NOTE | 2023-06-26 08:14 | PCM.PN.HOSP ---
Reason for Visit Reason for Visit: Diagnoses Alcohol dependence with withdrawal, unspecified (06/25/23) Objective Data Objective Data Vital Signs: Vital Signs Temp Pulse Resp BP Pulse Ox O2 Del Method 98.4 F 89 18 121/64 H 94 Room Air 06/26/23 02:56 06/26/23 02:56 06/26/23 02:56 06/26/23 02:56 06/26/23 02:56 06/26/23 02:56 Oxygen Delivery Method Room Air Weight: 220 lb 0.341 oz Body Mass Index (BMI) 31.6 Intake & Output: Intake and Output for Last 24 Hours 06/24/23 06/25/23 06/26/23 23:59 23:59 23:59 Intake Total 1035 / 1035 1946.25 / 194.25 Balance 1035 / 1035 1946.25 / 1945.25 Lab / Micro Data 06/26/23 03:57 06/26/23 03:57 Labs: Laboratory Results - last 24 hr 06/25/23 19:47: WBC 12.0 H, RBC 5.08, Hgb 16.1, Hct 44.8, MCV 88.2, MCH 31.7, MCHC 35.9, RDW Std Deviation 39.3, RDW Coeff of Guicho 12.2, Plt Count 143 L, MPV 10.1, Immature Gran % (Auto) 0.300, Neut % (Auto) 67.5, Lymph % (Auto) 8.7 L, [place] % (Auto) 7.0, Eos % (Auto) 16.2 H, Baso % (Auto) 0.3, Absolute Neuts (auto) 8.1 H, Absolute Lymphs (auto) 1.04, Nucleated RBC % 0, Differential Comment SCANNED, PT 12.5, INR 0.9, D-Dimer Quant (PE/DVT) 1.05 H*, Sodium 131 L, Potassium 4.5, Chloride 93 L, Carbon Dioxide 25.0, Anion Gap 13, BUN 25 H, Creatinine 1.24, Estim Creat Clear Calc 70.32, Est GFR (MDRD) Af Amer 78, Est GFR (MDRD) Non-Af 65, BUN/Creatinine Ratio 20.2 H, Glucose 195 H, Calcium 9.6, Phosphorus 3.7, Magnesium 1.7, Total Bilirubin 1.20 H, Direct Bilirubin 0.26, AST 66 H, ALT 40, Alkaline Phosphatase 87, Troponin I High Sens 9, Total Protein 8.1, Albumin 4.1, Globulin 4.0, Lipase 48, Ethyl Alcohol < 3.0 06/25/23 20:35: Blood Type O POSITIVE, Antibody Screen NEGATIVE 06/25/23 22:07: Urine Opiates Screen NEGATIVE, Urine Methadone Screen NEGATIVE, Ur Barbiturates Screen NEGATIVE, Ur Phencyclidine Scrn NEGATIVE, Ur Amphetamines Screen NEGATIVE, MDMA (Ecstasy) Screen NEGATIVE, U Benzodiazepines Scrn NEGATIVE, Urine Cocaine Screen NEGATIVE, U Cannabinoids Screen NEGATIVE, Ur Drug Screen Comment 06/26/23 00:08: Hgb 14.3, Hct 40.0 06/26/23 03:57: WBC 5.9, RBC 4.12 L, Hgb 13.1, Hct 37.3 L, MCV 90.5, MCH 31.8, MCHC 35.1, RDW Std Deviation 40.6, RDW Coeff of [place]icho 12.4, Plt Count 98 L, MPV 9.5, Immature Gran % (Auto) 0.300, Neut % (Auto) 70.2 H, Lymph % (Auto) 18.0 L, [place] % (Auto) 11.0 H, Eos % (Auto) 0.0, Baso % (Auto) 0.5, Absolute Neuts (auto) 4.1, Absolute Lymphs (auto) 1.06, Nucleated RBC % 0, Sodium 136, Potassium 3.8, Chloride 101, Carbon Dioxide 30.0, Anion Gap 5, BUN 18, Creatinine 0.86, Estim Creat Clear Calc 101.39, Est GFR (MDRD) Af Amer 120, Est GFR (MDRD) Non-Af 99, BUN/Creatinine Ratio 21.0 H, Glucose 127 H, Calcium 8.1 L, Total Bilirubin 1.10 H, AST 41 H, ALT 30, Alkaline Phosphatase 69, Total Protein 6.4, Albumin 3.2, Globulin 3.2, Albumin/Globulin Ratio 1.0 Radiography Diagnostic Testing: Radiology Impression Chest X-Ray 06/25/23 20:39 IMPRESSION: Normal x-ray examination of the chest. Electronically Signed: Randell Nassar MD at 21:22 EDT , Chest/Abdomen/Pelvis CTA 06/25/23 20:47 IMPRESSION: No significant abnormalities of the contrast-enhanced CT of the chest. Fatty liver. Bilateral nonobstructing renal stones. No other definite acute or significant abnormality seen. Electronically Signed: Randell Nassar MD at 21:42 EDT , Assessment & Plan Assessment/Plan (1) Alcohol withdrawal: PLAN: Plan The patient is a 53 y/o M with history of chronic alcohol use came to ED for for acute alcohol withdrawal. Patient has been on drinking spree for last 1 week, drinks a large bottle of vodka about 1.75 L daily. He states he drinks very heavily and at one instance he passed out.. Patient also had vomiting epigastric abdominal pain. He vomited blood before coming to ED. Not on anticoagulant or antiplatelet agent #1. Acute alcohol withdrawal syndrome with history of chronic alcohol use, dependence and multiple relapse and admissions: Patient is being admitted to floor on telemetry. Patient is being [facility] floor. Patient on phenobarbital based order set along with other adjunctive medications gabapentin, Bentyl, Vistaril, clonidine, Klonopin as needed for alcohol withdrawal symptom control. Patient is on thiamine and folate acid. CIWA monitor. Patient also on CIWA protocol and Ativan as needed if withdrawal symptoms are not controlled with phenobarbital. Patient's baseline hemoglobin runs around 14 g. Patient admitted with 16.1 hemoglobin/hematocrit 44.8. Today 13.1/37.3. I think hematocrit was concentrated due to hypovolemia but drop in hematocrit does not merit for acute blood loss anemia. She is #2. Acute on chronic alcoholic hepatitis: AST is elevated more than ALT. Patient has sometimes right upper quadrant pain. Quit alcohol advised. Follow-up in GI/hepatology clinic. 3. Acute upper GI bleed due to Malissa-Huang tear from chronic alcohol use: CT imaging with no acute finding. Patient w/ hematemesis, admission Hgb 16.1, on IV fluid. Patient had EGD which shows Malissa-Huang tear. Injected and treated with heater probe. Acute gastritis biopsied. Normal duodenal bulb. Full liquid diet advised. Patient pressing hard for solid food but advised to continue liquid diet. Discussed with the nursing staff. Continue IV ceftriaxone for now. Hyperglycemia: Possibly stress response, admission glucose 195, hemoglobin A1c 4.9. Prediabetes or diabetes mellitus ruled out. #4. Anxiety and depression/OCD: continue patient home fluvoxamine, gabapentin, BuSpar and trazodone regimen. Case management/director of social services consulted given likely contributes to his substance abuse. #5. History polysubstance abuse: Patient with history of previous methamphetamine usage, urine drug screen requested and is pending. #6. Tobacco Abuse: Encouraged cessation, inpatient consultation per RT, NR if desired. #7. Obesity: Weight loss and lifestyle changes encouraged. #8. DVT Prophylaxis: SCDs. Charges/Coding Visit Charges Inpatient E&M: 36840 Subs Hosp L2
[2023-06-26] MEDS: Pantoprazole Sodium 80 MG in 0.9% Normal Saline (100mL Bag) 80 ML 10 MG CONT INF (08:17)
[2023-06-26 08:48] LABS: Hemoglobin A1c 4.9 % (3.8-5.6)
--- NOTE | 2023-06-26 09:22 | NURSING ---
spoke w/hannah rn in ac and updated on pt report
[2023-06-26] MEDS: Ceftriaxone 1 GM/50 ML BAG IV (09:49)
--- NOTE | 2023-06-26 10:56 | NURSING ---
@ 0950, pt off unit in procedure/AC area
--- NOTE | 2023-06-26 11:00 | IMM_PTH ---
PATIENT: ALTHEA TIERNEY LOC: MS3 U#:[id number] AGE/SX: 53/M [place] [facility] [place]: Dr. Ervin Montgomery MD : 1970 BED: 1 DIS: 06/29/2023 SPEC #: [id number] RECD: 06/27/23 13:41 STATUS: SOUAmrik REQ #: [id number] AMEYA: 06/26/23 11:[address]: Smooth Sanches DEPT: IMMUNOHISTOCHEMISTRY RECD BY: Deann Senior ENTERED: 06/27/23 13:42 SP TYPE: IMMUNO OTHR DR: MD Dr. Dagoberto Hilario MD Dr. Prakash Chand, MD Tissues: Stomach, NOS Procedures: H Pylori (initial) PHYSICIAN & INSTITUTION [place] [id number] SPECIMEN INFORMATION: Tissue Source: Gastric body Clinical Info: Acute upper GI bleed Specimen Number: [id number] CPT code: 76820 METHODOLOGY: Deparaffinized sections of prefer/formalin-fixed tissue or PAP/DQ stained slides are incubated with monoclonal/polyclonal antibodies/oligonucleotide probes. Localization is made via biotin free immunoperoxidase method. Appropriate controls are performed and reacted as expected. Results on target cell population are indicated in the following table: RESULTS: ANTIBODY / CLONE RESULT H Pylori (polyclonal) negative These tests were developed and their performance characteristics determined by [facility]. They may not have been cleared or approved by the U.S. Food and Drug Administration. The FDA has determined that such clearance or approval is not necessary. The above immunohistochemical/dualISH markers are ordered and reviewed by the Pathologist. INTERPRETATION: Gastric body, biopsy: Negative for Helicobacter pylori organisms. SJ:yesenia 06/30/2023
--- NOTE | 2023-06-26 11:00 | EGD_PTH ---
PATIENT: ALTHEA TIERNEY LOC: MS3 U#:[id number] AGE/SX: 53/M [place] [facility] [place]: Dr. Ervin Montgomery MD : 1970 BED: 1 DIS: 06/29/2023 SPEC #: [id number] RECD: 06/26/23 14:10 STATUS: GRAYSON REQ #: [id number] AMEYA: 06/26/23 11:[address]: Smooth Sanches DEPT: SURGICAL PATHOLOGY RECD BY: Mary Ellen Cavanaugh ENTERED: 06/27/23 08:19 SP TYPE: EGD BIOPSY OTHR DR: MD Dr. Dagoberto Hilario MD Dr. Prakash Chand, MD Tissues: Gastric mucous membrane Procedures: Surgery Specimen Level IV Comments: @ Ordering doctor for SUIV edited from to @ by RGOOD at 06/27/23 1340 @ Submitting doctor edited from to @ by RGOOD at 06/27/23 1340 HEADER OPERATION: EGD with biopsy PRE-OP DIAGNOSIS: Acute upper GI bleed TISSUE SUBMITTED: Gastric body biopsy MICROSCOPIC DIAGNOSIS Gastric body, biopsy: Mild gastritis. See microscopic description and comment. SJ: 06/30/2023 COMMENT The results of immunohistochemistry for Helicobacter pylori will be reported separately ([id number]). MICROSCOPIC DESCRIPTION Slides are reviewed. The specimen shows fragments of gastric mucosa with chronic inflammatory cell infiltrates in the lamina propria consisting of lymphocytes and plasma cells, consistent with mild chronic gastritis. GROSS DESCRIPTION Received in fixative is one container labeled with the patient's name and designated gastric body biopsy. The specimen consists of two irregular fragments of light overton soft tissue that in aggregate measure 0.6 x 0.5 x 0.1 cm. The specimen is totally submitted in one cassette. / STEPHIE:brandi 06/27/2023 TC:3 [facility]: [id number]
--- NOTE | 2023-06-26 12:27 | OP.CCLET_ITS ---
06/26/2023 Dagoberto Mari [address] [place] [address] Re : Upper GI endoscopy procedure for Jake Gutierrez Dear Dr. Mari This procedure was performed on June. My impressions and recommendations are as follows: Impressions : - Malissa-Huang tear. Injected. Treated with a heater probe. - Acute gastritis. Biopsied. - Normal duodenal bulb. Recommendations : - [facility]. - Full liquid diet. - Continue present medications. - Await pathology results. My findings are described in the full procedure note, which is enclosed. If I can be of further assistance, please feel free to contact me at . Sincerely, Smooth Sanches, 06/26/2023 12:26:31 PM This report has been signed electronically.
--- NOTE | 2023-06-26 12:27 | OP.EGD_ITS ---
Patient Name: Jake Gutierrez Procedure Date: 06/26/2023 12:00 PM Date of : 1970 Age: 53 Procedure: Upper GI endoscopy Indications: Hematemesis Providers: Smooth Sanches DO Medicines: Monitored Anesthesia Care Patient Profile: This is a 53 year old male. Refer to note in patient chart for documentation of history and physical. Patient has symptoms of acute vomiting. Complications: No immediate complications. Procedure: Pre-Anesthesia Assessment: - Prior to the procedure, a History and Physical was performed, and patient medications and allergies were reviewed. The patient is competent. The risks and benefits of the procedure and the sedation options and risks were discussed with the patient. All questions were answered and informed consent was obtained. Patient identification and proposed procedure were verified by the physician in the pre-procedure area. Mental Status Examination: normal. Airway Examination: normal oropharyngeal airway and neck mobility. Respiratory Examination: clear to auscultation. Prophylactic Antibiotics: The patient does not require prophylactic antibiotics. Prior Anticoagulants: The patient has taken no anticoagulant or antiplatelet agents. After reviewing the risks and benefits, the patient was deemed in satisfactory condition to undergo the procedure. The anesthesia plan was to use monitored anesthesia care (MAC). Immediately prior to administration of medications, the patient was re-assessed for adequacy to receive sedatives. The heart rate, respiratory rate, oxygen saturations, blood pressure, adequacy of pulmonary ventilation, and response to care were monitored throughout the procedure. The physical status of the patient was re-assessed after the procedure. After obtaining informed consent, the endoscope was passed under direct vision. Throughout the procedure, the patient's blood pressure, pulse, and oxygen saturations were monitored continuously. The Endoscope was introduced through the mouth, and advanced to the second part of duodenum. The upper GI endoscopy was accomplished without difficulty. The patient tolerated the procedure well. Scope In: 12:15:25 PM Scope Out: 12:16:47 PM Total Procedure Duration Time 0 hours 1 minute 22 seconds Findings: A 5 mm bleeding Malissa-Huang tear with stigmata of recent bleeding was found. Area was successfully injected with 5 mL of a 0.1 mg/mL solution of epinephrine for drug delivery. Coagulation for hemostasis using heater probe was successful. Estimated blood loss was minimal. Diffuse severe inflammation characterized by erythema and friability was found in the gastric body. Biopsies were taken with a cold forceps for histology. Verification of patient identification for the specimen was done. Estimated blood loss was minimal. The duodenal bulb was normal. Impression: - Malissa-Huang tear. Injected. Treated with a heater probe. - Acute gastritis. Biopsied. - Normal duodenal bulb. Recommendation: - [facility] to [facility]. - Full liquid diet. - Continue present medications. - Await pathology results. Procedure Code(s): --- Professional --- 95712, 59, Esophagogastroduodenoscopy, flexible, transoral; with control of bleeding, any method 57613, 51, Esophagogastroduodenoscopy, flexible, transoral; with biopsy, single or multiple 76708, 59, Esophagogastroduodenoscopy, flexible, transoral; with directed submucosal injection(s), any substance CPT copyright 2021 [employer]. All rights reserved. The codes documented in this report are preliminary and upon line driver review may be revised to meet current compliance requirements. Smooth Sanches DO 06/26/2023 12:26:31 PM This report has been signed electronically. Number of Addenda: 0 Note Initiated On: 06/26/2023 12:00 PM
--- NOTE | 2023-06-26 16:04 | CASEMGMT ---
Social Work SW met with pt and introduced self and role of SW. Pt is currently uninsured. SW spoke with pt regarding this. Pt states he has had Medicaid in the past but not currently. SW spoke with pt regarding reapplying for Medicaid. Pt states I will need to get pay stubs and bank statements, that's a lot of hassle. SW provided pt with a Medicaid application and information sheet on how to apply for Medicaid (online, by phone or on paper) in the event pt would decide he wants insurance. AL Escalera
[2023-06-26] MEDS: Phenobarbital 32.4 MG Tablet 64.8 MG PO ×2 (18:05→21:09)
[2023-06-26] MEDS: fluvoxaMINE Maleate 50 MG Tablet 150 MG PO (21:06)
[2023-06-26] MEDS: Pantoprazole Sodium 40 MG in 0.9% Normal Saline (100mL MB+) 100 ML 330 MG IV (21:10)
[2023-06-27] MEDS: Phenobarbital 32.4 MG Tablet 64.8 MG PO ×6 (00:57→21:19)
[2023-06-27] MEDS: Gabapentin 300 MG Capsule PO (00:57)
[2023-06-27] MEDS: traZODone 100 MG Tablet 300 MG PO (00:58)
[2023-06-27] MEDS: Acetaminophen 325 MG Tablet 650 MG PO ×3 (01:05→21:19)
[2023-06-27 03:00] VITALS: BP 141/79; PULSE 81; RESP 18; TEMP 36.4; O2SAT 97
[2023-06-27] MEDS: 0.9% Normal Saline (1000mL) 1,000 ML 150 ML IV ×3 (03:36→17:07)
[2023-06-27] MEDS: busPIRone 5 MG Tablet 10 MG PO ×2 (05:31→15:41)
[2023-06-27 05:40] VITALS: BMI 32.1
[2023-06-27 08:00] VITALS: BP 138/89; PULSE 82; RESP 16; TEMP 36.4; O2SAT 96
[2023-06-27] MEDS: Folic Acid 1 MG Tablet PO (08:26)
[2023-06-27] MEDS: Multivitamins,Ther W-Minerals Tablet 1 TABLET PO (08:26)
[2023-06-27] MEDS: Thiamine Hydrochloride 100 MG Tablet PO (08:30)
[2023-06-27] MEDS: fluvoxaMINE Maleate 50 MG Tablet 150 MG PO (08:30)
[2023-06-27] MEDS: Ceftriaxone 1 GM/50 ML BAG IV (09:38)
[2023-06-27] MEDS: Pantoprazole Sodium 40 MG in 0.9% Normal Saline (100mL MB+) 100 ML 330 MG IV (10:46)
--- NOTE | 2023-06-27 12:56 | ADDICTION ---
This global technical writer met with PT to conduct ASAM, MSE, AUDIT assessments and to plan for d/c. PT A+Ox4 and participated actively. All assessments completed and placed in PT's chart. Pt completed residential treatment at [facility] and had 7 months of sobriety. PT plans to f/u with [facility] for follow-up treatment services. PT did not indicate a need for transportation post d/c from [facility].
--- NOTE | 2023-06-27 13:52 | PN.HOSP_ITS ---
Reason for Visit Reason for Visit: Diagnoses Alcohol dependence with withdrawal, unspecified (06/25/23) Subjective Subjective Follow-up for acute alcohol withdrawal syndrome. Objective Data Objective Data Vital Signs: Vital Signs Temp Pulse Resp BP Pulse Ox O2 Del Method 97.6 F L 82 16 138/89 H 96 Room Air 06/27/23 08:00 06/27/23 08:00 06/27/23 08:00 06/27/23 08:00 06/27/23 08:00 06/27/23 08:00 Oxygen Delivery Method Room Air Weight: 224 lb 3.362 oz Body Mass Index (BMI) 32.1 Intake & Output: Intake and Output for Last 24 Hours 06/25/23 06/26/23 06/27/23 23:59 23:59 23:59 Intake Total 1035 / 1035 5737.00 / 6737.00 2842.25 / 2842.25 Balance 1035 / 1035 5737.00 / 6737.00 2842.25 / 2842.25 Lab / Micro Data 06/26/23 03:57 06/26/23 03:57 Physical Exam Narrative Seen and examined. Patient walking in the hallway around the nursing station. Feels good. No nausea vomiting or hematemesis. Patient on soft diet. Physical exam General: Alert, Oriented x3, Cooperative HEENT: Atraumatic, PERRLA, EOMI, Normocephalic Oral: No Gingival or Mucosal Lesions/ Ulcerations Neck: Supple, No JVD, Negative Carotid Bruits Lungs: Air entry diminished in bilateral lung bases. No crepitation/rhonchi Cardiovascular: Regular rate, Regular Rhythm, Normal S1, Normal S2, No murmurs Abdomen: Bowel Sounds Present, Soft, Non Tender, Non-Distended : No renal angle tenderness. No suprapubic tenderness. Extremities: No edema, Capillary Refill Less than 3 Seconds Skin: No rashes, No breakdown Musculoskeletal: No Tenderness to Palpation of Joints or Extremities. No tremors. ROM full and intact. Neurological: Cranial nerves II-XII grossly intact, DTR 2+/4. No acute focal neurological deficit. Psych/Mental Status: Flat affect. Assessment & Plan Assessment/Plan (1) Alcohol withdrawal: PLAN: Plan The patient is a 53 y/o M with history of chronic alcohol use came to ED for for acute alcohol withdrawal. Patient has been on drinking spree for last 1 week, drinks a large bottle of vodka about 1.75 L daily. He states he drinks very heavily and at one instance he passed out.. Patient also had vomiting epigastric abdominal pain. He vomited blood before coming to ED. Not on anticoagulant or antiplatelet agent #1. Acute alcohol withdrawal syndrome with history of chronic alcohol use, dependence and multiple relapse and admissions: Patient is being admitted to floor on telemetry. Patient is being admitted to [facility] floor. Patient on phenobarbital based order set along with other adjunctive medications gabapentin, Bentyl, Vistaril, clonidine, Klonopin as needed for alcohol withdrawal symptom control. Patient is on thiamine and folate acid. CIWA monitor. Patient also on CIWA protocol and Ativan as needed if withdrawal symptoms are not controlled with phenobarbital. Patient's baseline hemoglobin runs around 14 g. Patient admitted with 16.1 hemoglobin/hematocrit 44.8. Today 13.1/37.3. I think hematocrit was concentrated due to hypovolemia but drop in hematocrit does not merit for acute blood loss anemia. She is #2. Acute on chronic alcoholic hepatitis: AST is elevated more than ALT. Patient has sometimes right upper quadrant pain. Quit alcohol advised. Follow- up in GI/hepatology clinic. 3. Acute upper GI bleed due to Malissa-Huang tear from chronic alcohol use: CT imaging with no acute finding. Patient w/ hematemesis, admission Hgb 16.1, on IV fluid. Patient had EGD which shows Malissa-Huang tear. Injected and treated with heater probe. Acute gastritis biopsied. Normal duodenal bulb. Full liquid diet advised. Patient pressing hard for solid food but advised to continue liquid diet. Discussed with the nursing staff. Continue IV ceftriaxone for now. Hyperglycemia: Possibly stress response, admission glucose 195, hemoglobin A1c 4.9. Prediabetes or diabetes mellitus ruled out. #4. Anxiety and depression/OCD: continue patient home fluvoxamine, gabapentin, BuSpar and trazodone regimen. Case management/social science research assistant consulted given likely contributes to his substance abuse. #5. History polysubstance abuse: Patient with history of previous methamphetamine usage, urine drug screen requested and is pending. #6. Tobacco Abuse: Encouraged cessation, inpatient consultation per RT, NR if desired. #7. Obesity: Weight loss and lifestyle changes encouraged. #8. DVT Prophylaxis: SCDs. Charges/Coding Visit Charges Inpatient E&M: 60604 Subs Hosp L2
[2023-06-27 13:53] VITALS: BP 146/82; PULSE 76; RESP 18; TEMP 36.6; TEMP 36.7; O2SAT 96
[2023-06-27 19:28] VITALS: PULSE 101
[2023-06-27 19:48] VITALS: PULSE 104
[2023-06-27 20:00] VITALS: BP 148/81; PULSE 96; RESP 16; TEMP 36.6; O2SAT 97
[2023-06-27] MEDS: Loperamide 2 MG Capsule PO (21:19)
--- NOTE | 2023-06-27 21:30 | NURSING ---
pt pulled out both iv's and doesnt want restarted, states he is tolerating fluids po fine, has had multiple pitchers of water and juice. pt also refusing telemetry. nurse charge rn aware. will notify dr when she calls. pt states he may be ready to go home tomorrow. encouraged him to talk with dr on dayshift tomorrow regarding his plan.
--- NOTE | 2023-06-27 21:56 | PCM.HOSP.N ---
Hospitalist Note Patient tore out another IV access. He refuses to have another placed. Will change from IV PPI to oral PPI.
[2023-06-28] MEDS: Pantoprazole Sodium 40 MG Tablet PO ×2 (01:56→09:13)
[2023-06-28] MEDS: fluvoxaMINE Maleate 50 MG Tablet 150 MG PO ×2 (01:56→09:12)
[2023-06-28] MEDS: busPIRone 5 MG Tablet 10 MG PO ×3 (01:57→13:52)
[2023-06-28 02:00] VITALS: BP 152/86; PULSE 94; RESP 16; TEMP 36.6; O2SAT 98
[2023-06-28] MEDS: Acetaminophen 325 MG Tablet 650 MG PO ×3 (02:00→21:38)
[2023-06-28] MEDS: Gabapentin 300 MG Capsule PO (02:00)
[2023-06-28] MEDS: Phenobarbital 32.4 MG Tablet 64.8 MG PO ×6 (02:03→21:39)
[2023-06-28] MEDS: traZODone 100 MG Tablet 300 MG PO (02:05)
[2023-06-28 02:20] VITALS: BMI 32.1
[2023-06-28 07:07] VITALS: O2SAT 94
[2023-06-28 08:55] VITALS: BP 139/85; PULSE 85; RESP 16; TEMP 36.7; O2SAT 97
[2023-06-28] MEDS: Folic Acid 1 MG Tablet PO (09:12)
[2023-06-28] MEDS: Thiamine Hydrochloride 100 MG Tablet PO (09:13)
[2023-06-28] MEDS: Multivitamins,Ther W-Minerals Tablet 1 TABLET PO (09:13)
--- NOTE | 2023-06-28 10:51 | ADDICTION ---
This mortgage underwriter briefly met with pt for follow-up. Client plans to seek treatment at [facility]. This mortgage underwriter introduced self, inquired if pt. needs further referrals, questions/concerns. Pt. denies, verbalizes he will be going home and plans to follow-up with outpatient treatment. Charge nurse notified.
--- NOTE | 2023-06-28 11:23 | PN.HOSP_ITS ---
Reason for Visit Reason for Visit: Diagnoses Alcohol dependence with withdrawal, unspecified (06/25/23) Subjective Subjective Follow-up for alcohol withdrawal along with upper GI bleed. No further bleeding Objective Data Objective Data Vital Signs: Vital Signs Temp Pulse Resp BP Pulse Ox O2 Del Method 98.1 F 85 16 139/85 H 97 Room Air 06/28/23 08:55 06/28/23 08:55 06/28/23 08:55 06/28/23 08:55 06/28/23 08:55 06/28/23 08:55 Oxygen Delivery Method Room Air Weight: 224 lb 3.362 oz Body Mass Index (BMI) 32.1 Intake & Output: Intake and Output for Last 24 Hours 06/26/23 06/27/23 06/28/23 23:59 23:59 23:59 Intake Total 5737.00 / 6737.00 4714.75 / 4714.75 Balance 5737.00 / 6737.00 4714.75 / 4714.75 Lab / Micro Data 06/26/23 03:57 06/26/23 03:57 Physical Exam Narrative Seen and examined. Overall, feels good. No nausea vomiting or hematemesis. Patient on soft diet. Patient pulled out IV line last night. On IV ceftriaxone. Physical exam General: Alert, Oriented x3, Cooperative HEENT: Atraumatic, PERRLA, EOMI, Normocephalic Oral: Oral mucosa moist. No Gingival or Mucosal Lesions/ Ulcerations Neck: Supple, No JVD, Negative Carotid Bruits Lungs: Air entry diminished in bilateral lung bases. No crepitation/rhonchi Cardiovascular: Regular rate, Regular Rhythm, Normal S1, Normal S2, No murmurs Abdomen: Bowel Sounds Present, Soft, Non Tender, Non-Distended : No renal angle tenderness. No suprapubic tenderness. Extremities: No edema, Capillary Refill Less than 3 Seconds Skin: No rashes, No breakdown Musculoskeletal: No Tenderness to Palpation of Joints or Extremities. No tremors. ROM full and intact. Neurological: Cranial nerves II-XII grossly intact, DTR 2+/4. No acute focal neurological deficit. Psych/Mental Status: Flat affect. Assessment & Plan Assessment/Plan (1) Alcohol withdrawal: PLAN: Plan The patient is a 53 y/o M with history of chronic alcohol use came to ED for for acute alcohol withdrawal. Patient has been on drinking spree for last 1 week, drinks a large bottle of vodka about 1.75 L daily. He states he drinks very heavily and at one instance he passed out.. Patient also had vomiting epigastric abdominal pain. He vomited blood before coming to ED. Not on anticoagulant or antiplatelet agent #1. Acute alcohol withdrawal syndrome with history of chronic alcohol use, dependence and multiple relapse and admissions: Patient is being admitted to floor on telemetry. Patient is being admitted to [facility] floor. Patient on phenobarbital based order set along with other adjunctive medications gabapentin, Bentyl, Vistaril, clonidine, Klonopin as needed for alcohol withdrawal symptom control. Patient is on thiamine and folate acid. CIWA monitor. Patient also on CIWA protocol and Ativan as needed if withdrawal symptoms are not controlled with phenobarbital. Patient's baseline hemoglobin runs around 14 g. Patient admitted with 16.1 hemoglobin/hematocrit 44.8. Today 13.1/37.3. I think hematocrit was idris ntrated due to hypovolemia but drop in hematocrit does not merit for acute blood loss anemia. 06/28: Hemoglobin and hematocrit stable. No further bleeding. Monitor CBC. #2. Acute on chronic alcoholic hepatitis: AST is elevated more than ALT. Patient has sometimes right upper quadrant pain. Quit alcohol advised. Follow- up in GI/hepatology clinic. There was concern for portal hypertensive bleed from alcoholic hepatitis therefore it was recommended to continue IV ceftriaxone for 5 days. Patient completed octreotide drip. We will change Protonix 40 mg p.o. twice daily. Ceftriaxone changed to IM. 3. Acute upper GI bleed due to Malissa-Huang tear from chronic alcohol use: CT imaging with no acute finding. Patient w/ hematemesis, admission Hgb 16.1, on IV fluid. Patient had EGD which shows Malissa-Huang tear. Injected and treated with heater probe. Acute gastritis biopsied. Normal duodenal bulb. Full liquid diet advised. Patient pressing hard for solid food but advised to continue liquid diet. Discussed with the nursing staff. Hyperglycemia: Possibly stress response, admission glucose 195, hemoglobin A1c 4.9. Prediabetes or diabetes mellitus ruled out. #4. Anxiety and depression/OCD: continue patient home fluvoxamine, gabapentin, BuSpar and trazodone regimen. Case management/delinquency prevention social worker consulted given likely contributes to his substance abuse. #5. History polysubstance abuse: Patient with history of previous methamphetamine usage, urine drug screen requested and is pending. #6. Tobacco Abuse: Encouraged cessation, inpatient consultation per RT, NR if desired. #7. Obesity: Weight loss and lifestyle changes encouraged. #8. DVT Prophylaxis: SCDs. Charges/Coding Visit Charges Inpatient E&M: 47321 Subs Hosp L2
[2023-06-28] MEDS: Ferrous Sulfate 325 MG Tablet PO (13:06)
[2023-06-28 13:38] VITALS: BP 147/84; PULSE 90; RESP 16; TEMP 36.6; O2SAT 96
[2023-06-28] MEDS: Cephalexin 500 MG Capsule PO ×3 (13:53→21:38)
[2023-06-28] MEDS: Ascorbic Acid 500 MG Tablet PO (17:47)
[2023-06-28 20:00] VITALS: BP 141/93; PULSE 90; RESP 16; TEMP 37; O2SAT 98
--- NOTE | 2023-06-29 00:06 | NURSING ---
Patient doesnt want his night time 2200 medications until 0130.
--- NOTE | 2023-06-29 01:02 | NURSING ---
nutrition intern called for pts ride. Security up here to take pt to car. Pt signed papers and gathered belongings.
--- NOTE | 2023-06-29 01:08 | PCM.HOSP.N ---
Hospitalist Note Patient left AMA 06/29/23 01:05.
--- NOTE | 2023-06-29 01:59 | NURSING ---
Went in to give patient his meds per his request. Patient upset Dr. Montgomery changed trazodone order from 300mg to 100mg. Wants to leave AMA. Explained if he would be willing to wait a few minutes this nurse could talk to Dr. Rasmussen and see if she would order the 300mg trazodone. Pt agreeable. Then walked out to desk and told ore charger he is leaving AMA.
== END 2023-06-29 01:05 | disposition left against medical advice (07) | DRG 894 ==
LOC: ED 20:39 → MS3 22:50
PROVIDERS: Internal Medicine Gastroenterology; Admitting Provider Family Medicine; Emergency Provider Student in an Organized Health Care Education/Training Program; PCP Family Medicine; Visit Provider Internal Medicine
PROC: 0DJ08ZZ Inspection of Upper Intestinal Tract, Via Natural or Artificial Opening Endoscopic (ICD-10-PCS; CPT 43235; principal; 2023-06-26 10:55)
DX: F10.239 Alcohol dependence with withdrawal, unspecified (principal); K22.6 Gastro-esophageal laceration-hemorrhage syndrome; K70.10 Alcoholic hepatitis without ascites; F19.11 Other psychoactive substance abuse, in remission; I10 Essential (primary) hypertension; F32.A Depression, unspecified; E86.1 Hypovolemia; K29.00 Acute gastritis without bleeding; F17.210 Nicotine dependence, cigarettes, uncomplicated; E66.9 Obesity, unspecified; F42.9 Obsessive-compulsive disorder, unspecified; R73.9 Hyperglycemia, unspecified; Z68.31 Body mass index [BMI] 31.0-31.9, adult
CPT/HCPCS: 36415; 71045; 71275; 74174; 80048; 80053; 80076; 80307; 82077; 83036; 83690; 83735; 84100; 84484; 85014; 85018; 85025; 85379; 85610; 86850; 86900; 86901; 88305; 88342; 93005; 94668; 99252; 99284; 99406; J7030; J7050; Q9967; A4216; G0463; J2405; J3490

== ENCOUNTER 2023-10-04 04:39 | Inpatient (IN) | payer MEDICAID, SELFPAY ==
[2023-10-04] VITALS (7 sets, daily range): BP systolic 129–187; BP diastolic 70–111; PULSE 90–133; RESP 16–20; TEMP 36.4–37; O2SAT 94–98; BMI 32.3
--- NOTE | 2023-10-04 04:51 | EDS_ITS ---
HPI History of Present Illness Chief Complaint: Substance Abuse Narrative Narrative: 53-year-old male past medical history of alcoholism, has been through rehab/detox multiple times. He presents with symptoms of alcohol withdrawal. States his last drink was yesterday evening around 8 PM, almost 9 hours ago. Said nausea and vomiting, feeling shaky. He states the last time he was admitted he received Ativan and that is what he would like because he is allergic to phenobarbital. He usually drinks up to 2 bottles of liquor per day. He states it was not that long ago that he went through detox, a few months ago, but fell off the wagon . [facility] Medical History Alcohol abuse Anxiety Depression ETOH abuse History of foot fracture HTN (hypertension) Methamphetamine abuse OCD (obsessive compulsive disorder) Tobacco use Transaminitis Home Medications trazodone 150 mg tablet 300 mg (2 x 150 mg) PO QHS PRN Sleep 30 days #60 tabs 05/11/18 [Rx Last Taken 3 Days Ago ~05/19/22] buspirone 15 mg tablet 10 mg PO TID depression 05/22/22 [History Last Taken 06/25/23] gabapentin 300 mg capsule 300 mg PO QHS sleep 05/22/22 [History Last Taken 06/25/23] fluvoxamine 100 mg tablet 150 mg PO BID OCD 08/04/22 [History Last Taken 06/25/23] Allergy/AdvReac Type Severity Reaction Status Date / Time amoxicillin AdvReac Upset Verified 06/25/23 19:39 Stomach Family History Mother No problems noted. Father CAD (coronary artery disease) Heart disease Myocardial infarction Surgical History S/P herniorrhaphy Social History household members: significant other housing: apartment Smoking Status: Former smoker alcohol intake: current details: Prior 1/2 gallon whiskey 80 proof daily->currently drinking heavy Vodka. substance use type: former substance user Date of last use: Prior history of use, methamphetamine noted prior. and methamphetamine ROS ROS ED ROS Narrative Constitutional: No fever, no chills. HEENT: No sore throat. No neck pain. No loss of vision. No rhinorrhea. Cardiovascular: No chest pain. No palpitations. No pedal edema. Respiratory: No cough, no shortness of breath. Abdominal: No abdominal pain. Positive nausea and vomiting. Genitourinary: No dysuria. No hematuria. Musculoskeletal: No myalgias. No arthralgias. Neurologic: No headaches. No dizziness. No lightheadedness. Positive shakiness. Skin: No rash. No change in color. Psychiatric: No depression. Positive anxiety. EXAM Physical Exam Narrative Exam Narrative: Afebrile. Vital signs noted. Dried vomit on face. HEENT: Normocephalic. Atraumatic. PERRL, EOMI. Neck soft and supple. No point tenderness or step off. Bilateral conjunctivitis. Cardiovascular: Tachycardia.. No murmurs, rubs, or gallops appreciated. Respiratory: No tachypnea. Lungs clear to auscultation bilaterally. Gastrointestinal: Abdomen soft, nontender, with normoactive bowel sounds. No rebound or guarding. Neurological: Awake. Alert. Nonfocal, nonlateralizing. Skin: No rash. Normal color. No pallor. Musculoskeletal: No pedal edema. Full range of motion extremities. Const Vital Signs: 10/04/23 04:40 Temperature 97.6 F L Temperature Source Temporal Pulse Rate 133 H Respiratory Rate 20 H Blood Pressure 158/111 H Blood Pressure Mean 126 Pulse Ox 96 Oxygen Delivery Method Room Air MDM MDM MDM Narrative Medical decision making narrative: I reviewed his prior records. He was admitted in March of last year and demanded discharge. Additionally, he was admitted for GI bleeding and alcohol withdrawal and detox back in June of last year, almost 3 months ago. However, at that time he signed out AGAINST MEDICAL ADVICE. He has had history of hypomagnesemia and hypokalemia. As he is tachycardic and he has elevated blood pressure of 158/111, I do feel that he is in active withdrawal. He was administered Ativan 1 mg intravenously, but I did see that he was on a phenobarbital taper previously, it is not listed as an allergy currently. Screening labs will be obtained. I do feel that he will require admission for alcohol withdrawal and detox. EKG was obtained and interpreted by myself independently as sinus tachycardia 126 bpm without ectopy or acute ST changes. No STEMI. I reviewed his laboratory work and he does have elevated white count of 12.1 which I think is nonspecific, hemoglobin normal at 14.8, hematocrit 42.0, platelet count slightly low at 121. This is a chronic thrombocytopenia. Sodium is low 135 with chloride also low at 93 consistent with dehydration. This makes his anion gap slightly elevated at 20, BUN of 19 and creatinine normal at 1.10. AST is elevated at 76 consistent with his alcohol abuse/consumption. His alcohol level is low at 79. Given his hypertension and tachycardia I do feel that he is in active withdrawal from alcohol. In review of his other laboratory work, he has had alcohol levels in the 300s. At this point in time, he was administered Zofran because of nausea and vomiting. His lipase is normal so I do not think he has an acute pancreatitis. He may have more of a gastritis. I discussed patient with Dr. Montgomery. He would like an additional dose of Zofran and States that the patient is acceptable to taking phenobarbital. Given his elevated CIWA score, he would like him on the PCU, full admit. Patient is in stable c ondition. History & Record Review Discussion w/independent historian: Patient Lab Data Attestation: I reviewed the patient's lab results. Labs: Laboratory Results - last 24 hr 10/04/23 10/04/23 04:40 05:35 WBC 12.1 H RBC 4.77 Hgb 14.8 Hct 42.0 MCV 88.1 MCH 31.0 MCHC 35.2 RDW Std Deviation 41.5 RDW Coeff of [place] 13.0 Plt Count 121 L MPV 9.8 Immature Gran % (Auto) 0.600 Neut % (Auto) 82.3 H Lymph % (Auto) 9.9 L [place] % (Auto) 7.0 Eos % (Auto) 0.0 Baso % (Auto) 0.2 Absolute Neuts (auto) 9.9 H Absolute Lymphs (auto) 1.19 Nucleated RBC % 0 Sodium 135 L Potassium 3.8 Chloride 93 L Carbon Dioxide 22.0 Anion Gap 20 H BUN 19 H Creatinine 1.10 Est GFR (MDRD) Af Amer 90 Est GFR (MDRD) Non-Af 74 BUN/Creatinine Ratio 17.3 Glucose 125 H Calcium 9.0 Magnesium 1.7 Total Bilirubin 1.10 H AST 76 H ALT 58 Alkaline Phosphatase 93 Total Protein 7.2 Albumin 4.0 Globulin 3.2 Albumin/Globulin Ratio 1.2 Lipase 48 Ur Drug Screen Comment Ethyl Alcohol 79.0 Discharge Plan Dx/Rx/DC Orders Clinical Impression: Desire for detoxification, Alcohol withdrawal, Bilateral conjunctivitis, Nausea and vomiting Disposition Disposition: Acute Care Hospital [facility]
--- OUTSIDE RECORDS SUMMARY | 2023-10-04 04:56 | XMS RPT_ITS | CCD ---
Author Name Unknown Address [address] [place] [address] Organization [facility] Care Team Providers Care Event Specialist Name Role Phone OCTAVIO KT Unavailable Unavailable Mari, Wilmer Unavailable Unavailable Mari, Wilmer Unavailable Unavailable Anthony Torres Unavailable Unavailable Mari, Wilmer Unavailable Unavailable Mari, Wilmer Unavailable Unavailable Kuzdeirdre, Lisa Unavailable Unavailable Mari, Wilmer Unavailable Unavailable Mari, Wilmer Unavailable Unavailable SHANTELL COKER Unavailable Unavailable [place], [facility] Primary Care Unava ilWilmer Lovelace Primary Care Provider Allergies Allergy Classification Reported Allergen(s) Allergy Type Date of Onset Reaction(s) Facility (1 source) Amoxicillin Drug Allergy 12-24-2017 Diarrhea [facility] Medications Current Medications Medication Drug Class(es) Dates Sig (Normalized) Sig (Original) acetaminophen 325 mg / oxyCODONE hydrochloride 5 mg oral tablet (1 source) Opioid Agonist Start: 08-29-2022 End: 08-29-2022 oxyCODONE-acetamin ophen (PERCOCET) 5-325 MG per tablet 1 tablet Completed/Discontinued Medications Medication Drug Class(es) Dates Sig (Normalized) Sig (Original) acetaminophen 500 mg oral tablet (1 source) Start: 08-29-2022 End: 08-29-2022 acetaminophen (TYLENOL) tablet 1,000 mg Problems Active Problems Problem Classification Problem Date Documented Date Episodic/Chronic Alcohol-related disorders (11 sources) Alcohol abuse, uncomplicated; Translations: [Alcoholic liver disease, unspecified] Onset: 12-24-2017 Resolved: 12-27-2017 05-27-2018 Chronic Allergic reactions (2 sources) Allergy status to penicillin; Translations: [Allergy status to penicillin] Onset: 07-18-2018 Episodic Anxiety disorders (4 sources) Obsessive-compulsive disorder, unspecified; Translations: [Obsessive-compulsive disorder, unspecified] Onset: 05-27-2018 Essential hypertension (5 sources) Essential (primary) hypertension; Translations: [Essential hypertension] Onset: 05-27-2018 05-27-2018 Chronic External Injury - Unspecified (2 sources) Blood alcohol level of 60-79 mg/100 ml; Translations: [Blood alcohol level of 60-79 mg/100 ml] Onset: 05-27-2018 Inflammation; infection of eye (except that caused by tuberculosis or sexually transmitteddisease) (4 sources) Unspecified acute conjunctivitis, bilateral; Translations: [Other mucopurulent conjunctivitis, bilateral] Onset: 07-18-2018 Episodic Mood disorders (4 sources) Major depressive disorder, single episode, unspecified; Translations: [Major depressive disorder, single episode, unspecified] Onset: 05-27-2018 Other non-traumatic joint disorders (1 source) Shoulder pain; Translations: [Pain in right shoulder] Episodic Other skin disorders (2 sources) Rash and other nonspecific skin eruption; Translations: [Rash and other nonspecific skin eruption] Onset: 05-27-2018 Episodic Residual codes; unclassified (1 source) Admitted to substance misuse detoxification center; Translations: [Other specified health status] 05-27-2018 Episodic Screening or history of mental health and substance abuse (4 sources) Personal history of nicotine dependence; Translations: [Personal history of nicotine dependence] Onset: 05-27-2018 Episodic Past or Other Problems Problem Classification Problem Date Documented Da te Episodic/Chronic Other connective tissue disease (1 source) Pain in right foot; Translations: [Pain in right foot] Onset: 01-23-2016 Resolved: 05-27-2018 05-27-2018 Episodic Other liver diseases (1 source) Enzyme level - finding; Translations: [Transaminitis] Onset: 05-27-2018 05-27-2018 Episodic Results Test Name Value Interpretation Reference Range Facil ity Vital Signs Date Time Vital Sign Value Performing Clinician Gladys keating 08-29-2022 00:42-0500 Body height 177.8 cm Karen Meyer MD Work Phone: [facility] 08-29-2022 00:42-0500 Body mass index (BMI) [Ratio] 28.7 kg/m2 Karen Meyer MD Work Phone: [facility] [address] [employer] 08-29-2022 00:42-0500 Body temperature 98.29 [degF] Karen Meyer MD Work Phone: [facility] [employer] 08-29-2022 00:42-0500 Body weight 90.72 kg Karen Meyer MD Work Phone: [facility] [employer] 08-29-2022 00:42-0500 Diastolic blood pressure 80 mm[Hg] Karen Meyer MD Work Phone: [facility] [employer] 08-29-2022 00:42-0500 Heart rate 71 /min Karen Meyer MD Work Phone: [facility] [employer] 08-29-2022 00:42-0500 Respiratory rate 16 /min Karen Meyer MD Work Phone: [facility] [employer] 08-29-2022 00:42-0500 SaO2% (BldA) [Mass fraction] 100 % Karen Meyer MD Work Phone: [facility] [address] [employer] 08-29-2022 00:42-0500 Systolic blood pressure 138 mm[Hg] Karen Meyer MD Work Phone: [facility] Encounters Encounter Date Encounter Type Care Provider Facility Start: 08-29-2022 End: 08-29-2022 Emergency department patient visit Karen Meyer MD Work Phone: [facility] Emergency Department Procedures Date Procedure Procedure Detail Performing Clinician Start: 08-29-2022 Radex shoulder compl ete minimum 2 views Karen Meyer MD Work Phone: Plan of Treatment Date Care Activity Detail Author Start: 12-09-2026 DTaP/Tdap/Td vaccine (2 - Td or Tdap) DTaP/Tdap/Td vaccine (2 - Td or Tdap) [facility] Start: 03-25-2022 Influenza vaccination Flu vaccine (# 1) [facility] Start: 2019 Shingles vaccine (1 of 2) Shingles vaccine (1 of 2) [facility] [employer] Start: 2014 Screening for malign ant neoplasm of colon [facility] [employer] Start: 2009 Lipid panel Lipids [facility] [employer] Start: 2004 Diabetes screen Diabetes screen [facility] [employer] Start: 1984 HIV screening HIV screen [facility] [employer] Start: 1981 Depression Screen Depression Screen [facility] [employer] Start: 1970 COVID-19 Vaccine (#1) COVID-19 Vacci ne (#1) [facility] [address] [employer] Payers Date Payer Category Payer Unknown [id number] 1970 Unknown [id number] 1970 Unknown [id number] Medicaid Unknown Social History Date Type Detail Facility Start: 05-26-2018 [facility] [email or web address] Phone: History of tobacco use Current smoker [employer] Phone: History of tobacco use Cigarette Smoker [employer] Phone: Start: 05-26-2018 Tobacco use and exposure Smokeless tobacco non-user [employer] [facility] [employer] Phone: Start: 08-29-2022 Alcohol intake Current drinke r of alcohol (finding) [employer] Phone: Start: 12-24-2017 Alcohol Comment ~1 L vodka rei ly or Cinnamon whisky amount varies usually a bottle. [employer] Phone: Start: 1970 Sex Assigned At Not on file [employer] Phone: Start: 08-19-2022 End: 08-29-2022 Exposure to SARS-CoV-2 (event) Not sure [employer] Phone: Hospital Discharge instructions 08-29-2022 Discharge InstructionsAttachments Note Date & Type Note Facility 08-29-2022 Hospital Discharg e instructions Karen Meyer MD - 08/29/2022 2:29 AM EST Your shoulder x-ray is normal. You were given a dose of pain medicine in the ER. Take Tylenol and Motrin at home. You have been referred to follow-up with an orthopedist. You have been given a sling to wear for comfort. The following attachments cannot be sent through Care Everywhere.Shoulder Pain ([place])documented in this encounter [employer] Phone: Evaluation note Note Date & Type Note Facility documented in this encounter [employer] Phone: Summary Purpose Family History No Family History Records FoundNo Family History Records FoundNo Family History Records FoundNo Family History Records FoundNo Family History Records FoundNo Family History Records FoundNo Family History Records Found Advance Directives Latest Code Status on File Code Status Date Activated Date Inactivated Comments Full Code 05/27/2018 1:40 AM 05/29/2018 9:03 PM Full Code 12/24/2017 6:33 AM 12/27/2017 10:28 PM Hospital Course Note Internal Medicine: Med TeamD ischarge Summary and Transition Jossy Gutierrez : 1970 DATE: 05/27/2018 DIS[facility] DATE: [facility] WILMER CHARLTON STATUS: AdmissionCODE STATUS: Full CodeDISCHARGE DIAGNOSES:Active Problems: Alcohol abuse Transaminitis Essential hypertensionResolved Problems: * No resolved hospital problems. *HOSPITAL COURSE:Pt is a 48 y/o male with a PMH of chronic EtOH abuse, depression/previous SI,HTN who presented on 10/3/18 for detox. [facility]. Last drink was 05/27/18. Pt was started onlibrium 50 mg q6, tapered to 25 the following day. Pt denied suicidal ideationor homicidal ideation. He noted persisting OCD symptoms but per ADM he wasinsistent upon quitting drinking and seeking inpatient rehab for ethanol abuse.He was tapered off librium and felt to be medically stable. He was dischargedhome with instructions to follow up with his home psychiatrist and his PC (more content not included)... Additional Source Comments (unrecognized sect ion and content) No Status Records FoundNo Status Records FoundNo Status Records FoundNo Status Records FoundNo Status Records FoundNo Status Records FoundNo Status Records Found INFORMATION SOURCE (unrecogn ized section and content) DATE CREATED AUTHOR AUTHOR'S ORGANIZ ATION 06/26/2018 [facility] DATE CREATED AUTHOR AUTHOR'S ORGANIZ ATION 06/27/2018 [facility] DATE CREATED AUTHOR AUTHOR'S ORGANIZ ATION 08/03/2018 [facility] DATE CREATED AUTHOR AUTHOR'S ORGANIZ ATION 09/10/2019 [facility] DATE CREATED AUTHOR AUTHOR'S ORGANIZ ATION 04/19/2020 [facility] DATE CREATED AUTHOR AUTHOR'S ORGANIZ ATION 05/31/2021 [facility] Reason for Visit (unrecogniz ed section and content) Scheduled Active and Recently Administ ered Medications (unrecognized section and content) Care Teams (unrecognized sec tion and content) FOR RECORDS PERTAINING TO PATIENTS WHO ARE OR HAVE BEEN ENROLLED IN A CHEMICAL DEPENDENCY/SUBSTANCEABUSE PROGRAM, SOME INFORMATION MAY BE OMITTED. This clinical summary was aggregated from multiple sources. Caution should be exercised in using it in the provision of clinical care. This summary normalizes information from multiple sources, and as a consequence, information in this document may materially change the coding, format and clinical context of patient data. In addition, data may be omitted in some cases. CLINICAL DECISIONS SHOULD BE BASED ON THE PRIMARY CLINICAL RECORDS. [employer] provides no warranty or guarantee of the accuracy or completeness of information in this document.
[2023-10-04] MEDS: Lorazepam 2 MG/ML WCH Syringe 1 MG IV (04:59)
[2023-10-04 05:07] LABS: Absolute Lymphocyte Count 1.19 X10^3/uL (0.83-4.51); Absolute Neutrophil Count 9.9 X10^3/uL (2.0-7.7); Basophil# 0.03 X10^3/uL; Basophil% 0.2 % (0-1); Hemoglobin 14.8 g/dL (13.0-16.5); Lymphocyte # 1.19 X10^3/ul (0.83-4.51); Lymphocyte % 9.9 % (19-41); Mean Corp Hgb Conc 35.2 g/dL (32-36); Mean Corpuscular Volume 88.1 fL (80-94); Mean Platelet Vol. 9.8 fl (6.2-12.0); Monocyte# 0.85 X10^3/uL; NRBC Flagged by Analyzer 0 % (0-5); Neutrophil # 9.93 X10^3/uL (2.7-7.7); Neutrophil % 82.3 % (47-70); Platelet Count 121 K/mm3 (150-450); RBC Distribution Width SD 41.5 fl (35.1-43.9); Red Blood Count 4.77 M/mm3 (4.6-6.2); White Blood Count 12.1 K/mm3 (4.4-11.0)
[2023-10-04] MEDS: Ondansetron 4 MG/2 ML Vial IV ×2 (05:26→06:54)
[2023-10-04 05:27] LABS: ALB/GLOB Ratio 1.2 RATIO (0.9-2.4); AST(SGOT) 76 U/L (15-37); Alanine Aminotransfer ALT/SGPT 58 U/L (16-61); Alkaline Phosphatase 93 U/L (45-117); Anion Gap 20 (5-15); BUN 19 mg/dL (7-18); BUN/Creat Ratio 17.3 RATIO (10-20); Chloride 93 mmol/L (98-107); EST Glomerular Filtration Rate 74 mL/min (>60); Est Glom Filt Rate - Afr Amer 90 mL/min (>60); Globulin 3.2 g/dL (2.2-4.2); Glucose 125 mg/dL (74-106); Lipase 48 U/L (13-75); Magnesium 1.7 mg/dL (1.6-2.6); Potassium 3.8 mmol/L (3.5-5.1); Protein, Total 7.2 g/dL (6.4-8.2); Sodium Level 135 mmol/L (136-145)
[2023-10-04] MEDS: Metoclopramide 10 MG/2 ML Vial 5 MG IV (05:49)
[2023-10-04 05:56] LABS: Amphetamine Urine VISTA NEGATIVE (<1000 ng/mL); Barbiturate Urine VISTA NEGATIVE (< 200 ng/mL); Benzodiazepine Urine VISTA NEGATIVE (< 200 ng/mL); Cocaine Urine VISTA NEGATIVE (< 300 ng/mL); Ecstacy Urine VISTA POSITIVE (< 500 ng/mL); Methadone Urine VISTA NEGATIVE (< 300 ng/mL); PCP Urine VISTA NEGATIVE (< 25 ng/mL); THC Urine VISTA NEGATIVE (< 50 ng/mL); Vista UDS pH Range 8
--- NOTE | 2023-10-04 05:58 | HP.PCM.HOS_ITS ---
HPI - General General Date of Admission: 10/04/23 Date of Service: 10/04/23 Chief Complaint: Acute alcohol withdrawal symptoms. HPI Narrative ALTHEA TIERNEY, is a 53 M with history of chronic alcohol use and multiple admissions last 1 in June 2023 when he signed AMA came to ED with nausea vomiting feeling shaking/tremors. Patient is very tremulous, restless, could not lay down on the bed. Patient has his girlfriend near the bedside. Patient is awake but tachycardic and high blood pressure, disorganized and incoherent therefore history mainly taken from his girlfriend. Patient had coffee-ground vomiting for last 2 days intermittently and also had black stool. Exact quantity and frequency cannot be ascertained. As per girlfriend his vomiting was forceful with retching. Patient also vomited in ED with coffee-ground stain on the towel. During previous hospital stay had EGD which shows Malissa-Huang tear. Patient was given lorazepam, Zofran but is still symptomatic and vomiting therefore Reglan given. Patient drinks 2 full bottles of hard liquor every day. He also complained of upper abdominal pain, constant 3-4/10 intensity. Exact characteristics, aggravating left character cannot be ascertained, history is limited. [facility] Medical History Alcohol abuse Anxiety Depression ETOH abuse History of foot fracture HTN (hypertension) Methamphetamine abuse OCD (obsessive compulsive disorder) Tobacco use Transaminitis Home Medications trazodone 150 mg tablet 300 mg (2 x 150 mg) PO QHS PRN Sleep 30 days #60 tabs 05/11/18 [Rx Last Taken 3 Days Ago ~05/19/22] buspirone 15 mg tablet 10 mg PO TID depression 05/22/22 [History Last Taken 06/25/23] gabapentin 300 mg capsule 300 mg PO QHS sleep 05/22/22 [History Last Taken 06/25/23] fluvoxamine 100 mg tablet 150 mg PO BID OCD 08/04/22 [History Last Taken 06/25/23] Allergy/AdvReac Type Severity Reaction Status Date / Time amoxicillin AdvReac Upset Verified 06/25/23 19:39 Stomach Family History Mother No problems noted. Father CAD (coronary artery disease) Heart disease Myocardial infarction Surgical History S/P herniorrhaphy Social History household members: significant other housing: apartment Smoking Status: Former smoker alcohol intake: current details: Prior 1/2 gallon whiskey 80 proof daily->currently drinking heavy Vodka. substance use type: former substance user Date of last use: Prior history of use, methamphetamine noted prior. and methamphetamine ROS ROS Narrative 14 system was could not be assessed as patient is in acute alcohol withdrawal symptoms, delirium encephalopathy Review of Systems ROS Unobtainable: due to encephalopathy Vital Signs Vital Signs Vital Signs: 10/04/23 04:40 Temperature 97.6 F L Temperature Source Temporal Pulse Rate 133 H Respiratory Rate 20 H Blood Pressure 158/111 H Blood Pressure Mean 126 Pulse Ox 96 Oxygen Delivery Method Room Air Physical Exam Narrative General: Awake, confused, disoriented, HEENT: Yellowish crusting/purulent discharge of upper and lower eyelids of bilateral eyes with conjunctival injection and redness. Conjunctivitis. Atraumatic, PERRLA, EOMI, Normocephalic Oral: Oral mucosa dry. No Gingival or Mucosal Lesions/ Ulcerations Neck: Supple, No JVD, Negative Carotid Bruits Chest wall/Lungs: Air entry diminished in bilateral lung bases. No crepitation/rhonchi Cardiovascular: Sinus tachycardia, Normal S1, Normal S2, No M/G/R Abdomen: Bowel Sounds Present, Soft, mild tenderness in the epigastrium, Non-Dis tended : No dysuria. No renal angle tenderness. No suprapubic tenderness. Extremities: No edema, Capillary Refill Less than 3 Seconds Skin: No rashes, No breakdown Musculoskeletal: No Tenderness to Palpation of Joints or Extremities Neurological: Cranial nerves II-XII grossly intact, DTR 2+/4. No acute focal neurological deficit. Psych/Mental Status: Hyperactive, delirium, restless Results Lab / Micro Data 10/04/23 04:40 10/04/23 04:40 Labs: Laboratory Results - last 24 hr 10/04/23 04:40: WBC 12.1 H, RBC 4.77, Hgb 14.8, Hct 42.0, MCV 88.1, MCH 31.0, MCHC 35.2, RDW Std Deviation 41.5, RDW Coeff of Guicho 13.0, Plt Count 121 L, MPV 9.8, Immature Gran % (Auto) 0.600, Neut % (Auto) 82.3 H, Lymph % (Auto) 9.9 L, Jenkins % (Auto) 7.0, Eos % (Auto) 0.0, Baso % (Auto) 0.2, Absolute Neuts (auto) 9.9 H, Absolute Lymphs (auto) 1.19, Nucleated RBC % 0, Sodium 135 L, Potassium 3.8, Chloride 93 L, Carbon Dioxide 22.0, Anion Gap 20 H, BUN 19 H, Creatinine 1.10, Est GFR (MDRD) Af Amer 90, Est GFR (MDRD) Non-Af 74, BUN/Creatinine Ratio 17.3, Glucose 125 H, Calcium 9.0, Magnesium 1.7, Total Bilirubin 1.10 H, AST 76 H, ALT 58, Alkaline Phosphatase 93, Total Protein 7.2, Albumin 4.0, Globulin 3.2, Albumin/Globulin Ratio 1.2, Lipase 48, Ethyl Alcohol 79.0 10/04/23 05:35: Urine Opiates Screen NEGATIVE, Urine Methadone Screen NEGATIVE, Ur Barbiturates Screen NEGATIVE, Ur Phencyclidine Scrn NEGATIVE, Ur Amphetamines Screen NEGATIVE, MDMA (Ecstasy) Screen POSITIVE H, U Benzodiazepines Scrn NEGATIVE, Urine Cocaine Screen NEGATIVE, U Cannabinoids Screen NEGATIVE, Ur Drug Screen Comment Assessment & Plan Assessment/Plan (1) Acute hyperactive alcohol withdrawal delirium: (2) Bilateral conjunctivitis: (3) Upper GI bleed: PLAN: Plan This is 53-year-old gentleman with history of chronic alcohol use disorder and dependence came with acute alcohol withdrawal symptoms and upper GI bleed. 1. Acute upper GI bleed, exact etiology unclear but suspected Malissa-Huang tear, patient is being admitted in PCU. IV fluid Ringer lactate, total of 2 bags. IV pantoprazole 40 mg every 12 hourly. GI consulted. H&H every 6 hourly. H&H 14.8/42%. Platelet count 121,000. During previous hospital stay, CT chest abdomen/pelvis did not show acute finding but fatty liver and bilateral nonobstructing renal stones.Patient had EGD which shows Malissa-Huang tear. Injected and treated with heater probe. Normal duodenal bulb. Clear liquid diet. 2. Acute encephalopathy most likely toxic encephalopathy from alcohol and acute alcohol withdrawal syndrome with history of chronic alcohol use, dependence and multiple relapse and readmissions/AMA: Patient on phenobarbital based order set along with other adjunctive medications gabapentin, Bentyl, Vistaril, clonidine, Klonopin as needed for alcohol withdrawal symptom control. Patient is on thiamine and folate acid. CIWA monitor. embedded software manager consulted. Patient states that he is allergic to phenobarbital but actually is not. Ethyl alcohol 79. 3. Acute on chronic alcoholic hepatitis: AST is elevated more than ALT.the patient has epigastric pain and sometimes p right upper quadrant pain. Quit alcohol advised. 4. Anxiety and depression/OCD: Hold patient's home medications including BuSpar and trazodone as it will be duplicate. Patient already on phenobarbital. 5. History polysubstance abuse: Patient with history of previous methamp hetamine usage. U tox negative for opioid methadone, barbiturates amphetamine but positive for ecstasy. Benzodiazepines and crack cocaine negative. #6. Tobacco Abuse: Encouraged cessation, inpatient consultation per RT, NR if desired. #7. Obesity: Weight loss and lifestyle changes encouraged. #8. Hyperglycemia probably due to chronic alcohol use: Glucose is 125. During previous admission, hemoglobin A1c 4.9. Prediabetes or diabetes mellitus ruled out. DVT Prophylaxis: SCDs. Pharmacological prophylaxis contraindicated. Living will/advanced directive/end of life care: Patient does not have living will or advanced directive. He has: Next of kin near the bedside. After discussion of benefits/risks procedures involved with full code, DNR CC arrest and DNR CC, the patient patient is disorganized and incoherent but girlfriend opted for full code. Patient does want artificial life support including intubation, tube feed, ventilator and/chest compression, central venous catheter, vasopressor and DC shock if needed Total time spent in [id number] encounter in discussion of advanced directive 17 minutes. Laboratory Results 10/04/23 04:40: WBC 12.1 H, RBC 4.77, Hgb 14.8, Hct 42.0, MCV 88.1, MCH 31.0, MCHC 35.2, RDW Std Deviation 41.5, RDW Coeff of Guicho 13.0, Plt Count 121 L, MPV 9.8, Immature Gran % (Auto) 0.600, Neut % (Auto) 82.3 H, Lymph % (Auto) 9.9 L, Jenkins % (Auto) 7.0, Eos % (Auto) 0.0, Baso % (Auto) 0.2, Absolute Neuts (auto) 9.9 H, Absolute Lymphs (auto) 1.19, Nucleated RBC % 0, Sodium 135 L, Potassium 3.8, Chloride 93 L, Carbon Dioxide 22.0, Anion Gap 20 H, BUN 19 H, Creatinine 1.10, Est GFR (MDRD) Af Amer 90, Est GFR (MDRD) Non-Af 74, BUN/Creatinine Ratio 17.3, Glucose 125 H, Calcium 9.0, Magnesium 1.7, Total Bilirubin 1.10 H, AST 76 H, ALT 58, Alkaline Phosphatase 93, Total Protein 7.2, Albumin 4.0, Globulin 3.2, Albumin/Globulin Ratio 1.2, Lipase 48, Ethyl Alcohol 79.0 10/04/23 05:35: Urine Opiates Screen NEGATIVE, Urine Methadone Screen NEGATIVE, Ur Barbiturates Screen NEGATIVE, Ur Phencyclidine Scrn NEGATIVE, Ur Amphetamines Screen NEGATIVE, MDMA (Ecstasy) Screen POSITIVE H, U Benzodiazepines Scrn NEGATIVE, Urine Cocaine Screen NEGATIVE, U Cannabinoids Screen NEGATIVE, Ur Drug Screen Comment
--- OUTSIDE RECORDS SUMMARY | 2023-10-04 06:15 | XMS RPT_ITS | CCD ---
Author Name Unknown Address [address] [place] [address] Organization [facility] Care Team Providers Care Proof Technician Name Role Phone OCTAVIO KT Unavailable Unavailable Mari, Wilmer Unavailable Unavailable Mari, Wilmer Unavailable Unavailable Anthony Torres Unavailable Unavailable Mari, Wilmer Unavailable Unavailable Mari, Wilmer Unavailable Unavailable Kuzdeirdre, Lisa Unavailable Unavailable Mari, Wilmer Unavailable Unavailable Mari, Wilmer Unavailable Unavailable SHANTELL COKER Unavailable Unavailable THOUSAND PALMS, [facility] Primary Care Unava ilWilmer Lovelace Primary Care Provider Allergies Allergy Classification Reported Allergen(s) Allergy Type Date of Onset Reaction(s) Facility (1 source) Amoxicillin Drug Allergy 12-24-2017 Diarrhea [facility] Medications Current Medications Medication Drug Class(es) Dates [...] 177.8 cm Karen Meyer MD Work Phone: [facility] 08-29-2022 00:42-0500 Body mass index (BMI) [Ratio] 28.7 kg/m2 Karen Meyer MD Work Phone: [facility] [employer] 08-29-2022 00:42-0500 Body temperature 98.29 [degF] Karen Meyer MD Work Phone: [facility] [employer] 08-29-2022 00:42-0500 Body weight 90.72 kg Karen Meyer MD Work Phone: [facility] [employer] 08-29-2022 00:42-0500 Diastolic blood pressure 80 mm[Hg] Karen Meyer MD Work Phone: [facility] [employer] 08-29-2022 00:42-0500 Heart rate 71 /min Karen Meyer MD Work Phone: [facility] [employer] 08-29-2022 00:42-0500 Respiratory rate 16 /min Karen Meyer MD Work Phone: [facility] [employer] 08-29-2022 00:42-0500 SaO2% (BldA) [Mass fraction] 100 % Karen Meyer MD Work Phone: [facility] [employer] 08-29-2022 00:42-0500 Systolic blood pressure 138 mm[Hg] Karen Meyer MD Work Phone: [facility] Encounters Encounter Date Encounter Type Care Provider Facility Start: 08-29-2022 End: 08-29-2022 Emergency department patient visit Karen Meyer MD Work Phone: [facility] Emergency Department Procedures Date Procedure Procedure Detail Performing Clinician Start: 08-29-2022 Radex shoulder compl ete minimum 2 views Karen Meyer MD Work Phone: Plan of Treatment Date Care Activity Detail Author Start: 12-09-2026 DTaP/Tdap/Td vaccine (2 - Td or Tdap) DTaP/Tdap/Td vaccine (2 - Td or Tdap) [facility] Start: 03-25-2022 Influenza vaccination Flu vaccine (# 1) [facility] Start: 2019 Shingles vaccine (1 of 2) Shingles vaccine (1 of 2) [facility] [employer] Start: 2014 Screening for malign ant neoplasm of colon [facility] [employer] Start: 2009 Lipid panel Lipids [facility] [employer] Start: 2004 Diabetes screen Diabetes screen [facility] [employer] Start: 1984 HIV screening HIV screen [facility] HERNANDEZ [employer] Start: 1981 Depression Screen Depression Screen [facility] [employer] Start: 1970 COVID-19 Vaccine (#1) COVID-19 Vacci ne (#1) [facility] [employer] Payers Date Payer Category Payer Unknown [id number] 1970 Unknown [id number] 1970 Unknown [id number] Medicaid Unknown Social History Date Type Detail Facility Start: 05-26-2018 [facility] [employer] Phone: History of tobacco use Current smoker [employer] Phone: History of tobacco use Cigarette Smoker [employer] Phone: Start: 05-26-2018 Tobacco use and exposure Smokeless tobacco non-user [employer] [facility] Phone: Start: 08-29-2022 Alcohol intake Current drinke r of alcohol (finding) [employer] Phone: Start: 12-24-2017 Alcohol Comment ~1 L vodka rei ly or Cinnamon whisky amount varies usually a bottle. [employer] Phone: Start: 1970 Sex Assigned At Not on file [employer] Phone: Start: 08-19-2022 End: 08-29-2022 Exposure to SARS-CoV-2 (event) Not sure [employer] Phone: Hospital Discharge instructions 08-29-2022 Discharge InstructionsAttachments [...] cannot be sent through Care Everywhere.Shoulder Pain (Cambodian)documented in this encounter [employer] Phone: Evaluation note Note Date & Type Note Facility documented in this encounter [employer] Phone: Summary Purpose Family History No Family [...] Gutierrez : 1970 DATE: 05/27/2018 [facility]: [facility] WILMER CHARLTON STATUS: AdmissionCODE STATUS: Full CodeDISCHARGE DIAGNOSES:Active Problems: Alcohol abuse Transaminitis Essential hypertensionResolved Problems: * No resolved hospital problems. *HOSPITAL COURSE:Pt is a 48 y/o male with a PMH of chronic EtOH abuse, depression/previous SI,HTN who presented on 10/3/18 for detox. [facility] Last drink was [...] DATE CREATED AUTHOR AUTHOR'S ORGANIZ ATION 06/26/2018 [facility] DATE CREATED AUTHOR AUTHOR'S ORGANIZ ATION 06/27/2018 [facility] DATE CREATED AUTHOR AUTHOR'S ORGANIZ ATION 08/03/2018 [facility] DATE CREATED AUTHOR AUTHOR'S ORGANIZ ATION 09/10/2019 [facility] DATE CREATED AUTHOR AUTHOR'S ORGANIZ ATION 04/19/[address] [facility] DATE CREATED AUTHOR AUTHOR'S ORGANIZ ATION 05/31/2021 [facility] (formerly [facility]) Reason for Visit (unrecogniz ed section and [...] BE BASED ON THE PRIMARY CLINICAL RECORDS. [employer] provides no warranty or guarantee of the accuracy or completeness of information in this document.
[2023-10-04 06:39] LABS: Phosphorus 3.4 mg/dL (2.5-4.9)
[2023-10-04] MEDS: Phenobarbital 32.4 MG Tablet 97.2000000000000028 MG PO (06:53)
[2023-10-04] MEDS: Pantoprazole Sodium 40 MG in 0.9% Normal Saline (100mL MB+) 100 ML 330 MG IV ×3 (06:53→22:12)
[2023-10-04 07:53] LABS: Hematocrit 37.1 % (40-54); Hemoglobin 13.6 g/dL (13.0-16.5)
[2023-10-04] MEDS: Folic Acid 1 MG Tablet PO (08:44)
[2023-10-04] MEDS: Thiamine Hydrochloride 100 MG Tablet PO (08:44)
[2023-10-04] MEDS: 0.9% Saline Lock 10 ML Syringe IV (08:44)
[2023-10-04] MEDS: Sulfacetamide Sodium 15ML OPTH.BTL 2 DRP EACH EYE ×4 (08:45→22:20)
[2023-10-04] MEDS: Magnesium Sulfate 2 GM in Dextrose 5%-Water (100mL Bag) 100 ML IV (08:46)
--- NOTE | 2023-10-04 09:39 | PCM.PN.HOSP ---
Reason for Visit Reason for Visit: Diagnoses Alcohol use, unspecified with withdrawal delirium (10/04/23) Unspecified conjunctivitis (10/04/23) Gastrointestinal hemorrhage, unspecified (10/04/23) Subjective Subjective Patient is a 53-year-old with history of chronic alcohol dependence who presented with restlessness as well as nausea and vomiting with coffee-ground emesis Objective Data Objective Data Vital Signs: Vital Signs Temp Pulse Resp BP Pulse Ox O2 Del Method 98 F 131 H 18 137/102 H 94 Room Air 10/04/23 07:53 10/04/23 07:53 10/04/23 07:53 10/04/23 07:53 10/04/23 07:53 10/04/23 08:05 Oxygen Delivery Method Room Air Weight: 102.4 kg Body Mass Index (BMI) 32.3 Intake & Output: Intake and Output for Last 24 Hours 10/02/23 10/03/23 10/04/23 23:59 23:59 23:59 Intake Total 115.2 / 115.2 Balance 115.2 / 115.2 Lab / Micro Data 10/04/23 07:45 10/04/23 04:40 Labs: Laboratory Results - last 24 hr 10/04/23 04:40: WBC 12.1 H, RBC 4.77, Hgb 14.8, Hct 42.0, MCV 88.1, MCH 31.0, MCHC 35.2, RDW Std Deviation 41.5, RDW Coeff of Guicho 13.0, Plt Count 121 L, MPV 9.8, Immature Gran % (Auto) 0.600, Neut % (Auto) 82.3 H, Lymph % (Auto) 9.9 L, [place] % (Auto) 7.0, Eos % (Auto) 0.0, Baso % (Auto) 0.2, Absolute Neuts (auto) 9.9 H, Absolute Lymphs (auto) 1.19, Nucleated RBC % 0, Sodium 135 L, Potassium 3.8, Chloride 93 L, Carbon Dioxide 22.0, Anion Gap 20 H, BUN 19 H, Creatinine 1.10, Est GFR (MDRD) Af Amer 90, Est GFR (MDRD) Non-Af 74, BUN/Creatinine Ratio 17.3, Glucose 125 H, Calcium 9.0, Phosphorus 3.4, Magnesium 1.7 10/04/23 04:40: Magnesium Cancelled, Total Bilirubin 1.10 H, AST 76 H, ALT 58, Alkaline Phosphatase 93, Total Protein 7.2, Albumin 4.0, Globulin 3.2, Albumin/Globulin Ratio 1.2, Lipase 48, Ethyl Alcohol 79.0 10/04/23 05:35: Urine Opiates Screen NEGATIVE, Urine Methadone Screen NEGATIVE, Ur Barbiturates Screen NEGATIVE, Ur Phencyclidine Scrn NEGATIVE, Ur Amphetamines Screen NEGATIVE, MDMA (Ecstasy) Screen POSITIVE H, U Benzodiazepines Scrn NEGATIVE, Urine Cocaine Screen NEGATIVE, U Cannabinoids Screen NEGATIVE, Ur Drug Screen Comment 10/04/23 06:30: PT 13.0, INR 1.0 10/04/23 07:45: Hgb 13.6, Hct 37.1 L Physical Exam Narrative GENERAL: Restless HEENT: Atraumatic; normocephalic EYES; Anicteric, dry crusty discharge involving both eyes NECK; supple, normal thyroid, RESPIRATORY: Diminished to auscultation CARDIOVASCULAR: Regular S1 S2, GI: soft, normoactive bowel sounds, : No Renal angle tenderness; EXTREMITIES: No edema, no clubbing, MUSCULOSKELETAL: no muscle wasting NEURO: Awake; no lateralizing signs. SKIN: No Rash PSYCH; restless Assessment & Plan Assessment/Plan (1) Acute hyperactive alcohol withdrawal delirium: (2) Bilateral conjunctivitis: (3) Upper GI bleed: PLAN: Plan Patient is a 53-year-old with history of chronic alcohol dependence who presented with restlessness as well as nausea and vomiting with coffee-ground emesis 1. Acute GI bleed ? Suspected to be secondary to Malissa-Huang tear from intractable nausea vomiting. Patient admitted to a monitored bed managed with IV fluids, IV Protonix with every 6 H&H ordered. Consult placed to GI. Patient apparently had an upper EGD on 06/26/2023 which demonstrated Malissa-Huang tear injected and treated with a heater probe as well as acute gastritis 2. Acute toxic encephalopathy secondary to acute alcohol withdrawal ? In a patient with chronic alcohol dependence with multiple admissions for alcohol withdrawal. Admitted to monitored bed managed with phenobarb taper in addition to adjuvant medications for his withdrawal symptoms 3. Bilateral conjunctivitis ? Topical treatment initiated 4. Depression with anxiety ? Patient is on buspirone as well as Fluvoxamine did continue 5. Tobacco dependence - Counseled on cessation, offered nicotine patch for tobacco cravings 6. Class II obesity with BMI of 32.4 ? Weight loss advised 7. OCD ? Home medications continued 8. DVT prophylaxis Low risk, did encourage early ambulation Time spent in the patient's overall evaluation,decision-making process, review of diagnostic data, adjustment of management, discussion with other providers, nursing nursing and ancillary staff involved in patient's care documentation, 35 minutes Charges/Coding Visit Charges Inpatient E&M: 49311 Subs Hosp L2
[2023-10-04] MEDS: Phenobarbital 32.4 MG Tablet 64.7999999999999972 MG PO ×4 (10:29→22:21)
[2023-10-04] MEDS: Lactated Ringers 1,000 ML 125 ML IV ×2 (13:17→22:11)
--- NOTE | 2023-10-04 13:57 | CON.PCM.GI_ITS ---
HPI Consult Data Date of Consult: 10/04/23 HPI Narrative Reason for Consultation: GI bleed HPI Narrative: ALTHEA TIERNEY, is a 53 M who presents after having multiple episodes of hematemesis. He has a history of chronic alcohol use and multiple admissions last 1 in June 2023 when he signed AMA came to ED with nausea vomiting feeling shaking/tremors. Patient is very tremulous, restless, could not lay down on the bed. Patient has his girlfriend near the bedside. Patient is awake but tachycardic and high blood pressure, disorganized and incoherent therefore history mainly taken from his girlfriend. Patient had coffee-ground vomiting for last 2 days intermittently and also had black stool. Exact quantity and frequency cannot be ascertained. As per girlfriend his vomiting was forceful with retching. Patient also vomited in ED with coffee-ground stain on the towel. During previous hospital stay had EGD which shows Malissa-Huang tear. I performed a procedure on him. In the ED patient was given lorazepam, Zofran but is still symptomatic and vomiting therefore Reglan given. Patient drinks 2 full bottles of hard liquor every day. He also complained of upper abdominal pain, constant 3-4/10 intensity. Exact characteristics, aggravating left character cannot be ascertained, history is limited. Work-up in the ED included T98.1, heart rate initially 134 with most recent repeat 115, BP initially 182/96 with most recent repeat 156/81, respiratory rate 18, 95% on room air, CBC with WBC 12, hemoglobin 16.1, platelets 143 with left shift, coags with PT 12.5, INR 0.9, D-dimer 1.05, CMP with sodium 131, chloride 93, BUN/creatinine 25/1.24, glucose 195, magnesium 1.7, total bilirubin 1.20, direct bilirubin 0.26, AST/ALT 6 6/40, alk phos 87, troponin 9, lipase 48, ethyl alcohol less than 3, chest x-ray with no acute cardiopulmonary findings, CTA chest/abdomen/pelvis with no significant abnormality, fatty liver, bilaterally nonobstructing renal stones with no other definitive acute abnormality EKG with sinus tachycardia with no acute evidence of ischemia. In the ED patient ministered 1 L normal saline, pantoprazole bolus and drip, lorazepam 2 mg IV x1, Zofran 4 mg IV x1. PFSH Medical History Alcohol abuse Anxiety Depression ETOH abuse History of foot fracture HTN (hypertension) Methamphetamine abuse OCD (obsessive compulsive disorder) Tobacco use Transaminitis Home Medications trazodone 150 mg tablet 300 mg (2 x 150 mg) PO QHS PRN Sleep 30 days #60 tabs 05/11/18 [Rx Last Taken 3 Days Ago ~05/19/22] buspirone 15 mg tablet 10 mg PO TID depression 05/22/22 [History Last Taken 06/25/23] gabapentin 300 mg capsule 300 mg PO QHS sleep 05/22/22 [History Last Taken 06/25/23] fluvoxamine 100 mg tablet 150 mg PO BID OCD 08/04/22 [History Last Taken 06/25/23] Allergy/AdvReac Type Severity Reaction Status Date / Time amoxicillin AdvReac Upset Verified 06/25/23 19:39 Stomach Family History Mother No problems noted. Father CAD (coronary artery disease) Heart disease Myocardial infarction Surgical History S/P herniorrhaphy Social History household members: significant other housing: apartment Smoking Status: Former smoker alcohol intake: current details: Prior 1/2 gallon whiskey 80 proof daily->currently drinking heavy Vodka. substance use type: former substance user Date of last use: Prior history of use, methamphetamine noted prior. and methamphetamine ROS ROS Narrative 14 system was could not be assessed as patient is in acute alcohol withdrawal symptoms, delirium encephalopathy Review of Systems ROS Unobtainable: due to encephalopathy Physical Exam Narrative GENERAL: Restless HEENT: Atraumatic; normocephalic EYES; Anicteric, dry crusty discharge involving both eyes NECK; supple, normal thyroid, RESPIRATORY: Diminished to auscultation CARDIOVASCULAR: Regular S1 S2, GI: soft, normoactive bowel sounds, : No Renal angle tenderness; EXTREMITIES: No edema, no clubbing, MUSCULOSKELETAL: no muscle wasting NEURO: Awake; no lateralizing signs. SKIN: No Rash PSYCH; restless Lab / Micro Data 10/04/23 07:45 10/04/23 04:40 Labs: Laboratory Results - last 24 hr 10/04/23 04:40: WBC 12.1 H, RBC 4.77, Hgb 14.8, Hct 42.0, MCV 88.1, MCH 31.0, MCHC 35.2, RDW Std Deviation 41.5, RDW Coeff of [place]icho 13.0, Plt Count 121 L, MPV 9.8, Immature Gran % (Auto) 0.600, Neut % (Auto) 82.3 H, Lymph % (Auto) 9.9 L, [place] % (Auto) 7.0, Eos % (Auto) 0.0, Baso % (Auto) 0.2, Absolute Neuts (auto) 9 .9 H, Absolute Lymphs (auto) 1.19, Nucleated RBC % 0, Sodium 135 L, Potassium 3.8, Chloride 93 L, Carbon Dioxide 22.0, Anion Gap 20 H, BUN 19 H, Creatinine 1.10, Est GFR (MDRD) Af Amer 90, Est GFR (MDRD) Non-Af 74, BUN/Creatinine Ratio 17.3, Glucose 125 H, Calcium 9.0, Phosphorus 3.4, Magnesium 1.7 10/04/23 04:40: Magnesium Cancelled, Total Bilirubin 1.10 H, AST 76 H, ALT 58, Alkaline Phosphatase 93, Total Protein 7.2, Albumin 4.0, Globulin 3.2, Albumin/Globulin Ratio 1.2, Lipase 48, Ethyl Alcohol 79.0 10/04/23 05:35: Urine Opiates Screen NEGATIVE, Urine Methadone Screen NEGATIVE, Ur Barbiturates Screen NEGATIVE, Ur Phencyclidine Scrn NEGATIVE, Ur Amphetamines Screen NEGATIVE, MDMA (Ecstasy) Screen POSITIVE H, U Benzodiazepines Scrn NEGATIVE, Urine Cocaine Screen NEGATIVE, U Cannabinoids Screen NEGATIVE, Ur Drug Screen Comment 10/04/23 06:30: PT 13.0, INR 1.0 10/04/23 07:45: Hgb 13.6, Hct 37.1 L Assessment & Plan Assessment/Plan (1) Acute hyperactive alcohol withdrawal delirium: (2) Bilateral conjunctivitis: (3) Upper GI bleed: PLAN: Plan This is 53-year-old gentleman with history of chronic alcohol use disorder and upper GI bleed. Acute upper GI bleed, exact etiology unclear but suspected Malissa-Huang tear, alcoholic gastritis, peptic ulcer disease, erosive esophagitis. IV fluid Ringer lactate, total of 2 bags. IV pantoprazole 40 mg every 12 hourly. H&H every 6 hourly. H&H 14.8/42%. Platelet count 121,000. During previous hospital stay, CT chest abdomen/pelvis did not show acute finding but fatty liver and bilateral nonobstructing renal stones.his previous EGD which shows Malissa-Huang tear. Injected and treated with heater probe. Normal duodenal bulb. I would have performed endoscopy today but he is on a regular diet. Recommend n.p.o. past midnight on 10/05/2023 for EGD on Friday morning 10/06/2023. Acute on chronic alcoholic hepatitis: AST is elevated more than ALT.the patient has epigastric pain and sometimes p right upper quadrant pain. His Madrey score is 24 and he has no signs of encephalopathy. Therefore steroids not indicated at this time. Charges/Coding Visit Charges Inpatient E&M: 71407 Init Hosp L3
[2023-10-04 14:29] LABS: Hematocrit 35.5 % (40-54); Hemoglobin 12.5 g/dL (13.0-16.5)
--- NOTE | 2023-10-04 16:55 | CASEMGMT ---
Social Work SW introduced self and role to patient. SW explained SDOH and patient agreed to answer questions. Pt indicates transportation will be an issue because he got a DUI and will not be able to drive. Pt reports concern for utilities, denies a shutoff notice. SW provided patient with resources for transportation and utilities. Pt denies any further needs at this time. Rasheeda Cisse VACUUM WORKER, SPREAD CUTTER
[2023-10-04] MEDS: traZODone 100 MG Tablet PO (22:21)
[2023-10-04] MEDS: Gabapentin 300 MG Capsule PO (22:21)
[2023-10-04 23:02] LABS: Mucous, Urine 0 SEEN /hpf (<or=2+); Red Blood Cells-Urine 0 SEEN /hpf (0-5); Squamous Epithelial Cells - UA 0 SEEN /hpf (0-5); White Blood Cells 0 SEEN /hpf (0-5)
[2023-10-04 23:03] LABS: Color, Urine Yellow (Yellow); Glucose, Dipstick Normal (Normal); Leukocyte Esterase-Dipstick Negative /ul (Negative); Nitrite-Dipstick Negative (Negative); Occult Blood-Urine 25 /ul (Negative); Protein-Dipstick 30 mg/dl (Negative); Urine Bilirubin Dipstick Negative (Negative); Urine Clarity Turbid (Clear); Urine Urobilinogen Normal (Normal)
[2023-10-04 23:07] LABS: Ketone-Dipstick 150 mg/dl (Negative)
[2023-10-04 23:14] LABS: Bacteria 4+ /hpf (None Seen); Fine Granular Cast- Urine 25-50 SEEN /lpf (0-5); Hyaline Cast 0-5 SEEN /lpf (0-5)
[2023-10-05 04:00] VITALS: BP 144/87; PULSE 89; RESP 16; TEMP 36.4; O2SAT 98
[2023-10-05] MEDS: Sulfacetamide Sodium 15ML OPTH.BTL 2 DRP EACH EYE ×6 (04:29→21:44)
[2023-10-05] MEDS: Phenobarbital 32.4 MG Tablet 64.7999999999999972 MG PO ×6 (04:30→21:45)
[2023-10-05] MEDS: Acetaminophen 500 MG Tablet PO (04:43)
[2023-10-05 05:53] LABS: Absolute Lymphocyte Count 1.13 X10^3/uL (0.83-4.51); Absolute Neutrophil Count 2.9 X10^3/uL (2.0-7.7); Basophil# 0.01 X10^3/uL; Basophil% 0.2 % (0-1); Eosinophil# 0.04 X10^3/uL; Eosinophils% 0.9 % (0-5); Hematocrit 37.5 % (40-54); Hemoglobin 12.9 g/dL (13.0-16.5); Lymphocyte # 1.13 X10^3/ul (0.83-4.51); Lymphocyte % 25.1 % (19-41); Mean Corp Hgb Conc 34.4 g/dL (32-36); Mean Corpuscular Hgb 31.7 pg (27.0-32.0); Mean Corpuscular Volume 92.1 fL (80-94); Monocyte# 0.43 X10^3/uL; Monocyte% 9.5 % (0-10); NRBC Flagged by Analyzer 0 % (0-5); Neutrophil # 2.87 X10^3/uL (2.7-7.7); Neutrophil % 63.6 % (47-70); POSITIVE COUNT YES; Platelet Count 84 K/mm3 (150-450); RBC Distribution Width CV 13.1 % (11.6-14.6); RBC Distribution Width SD 43.2 fl (35.1-43.9); Red Blood Count 4.07 M/mm3 (4.6-6.2); White Blood Count 4.5 K/mm3 (4.4-11.0)
[2023-10-05 05:56] LABS: Bacteria 0 SEEN /hpf (None Seen); Mucous, Urine 0 SEEN /hpf (<or=2+); Red Blood Cells-Urine 0 SEEN /hpf (0-5)
[2023-10-05 06:04] LABS: Glucose, Dipstick Normal (Normal); Ketone-Dipstick 5 mg/dl (Negative); Leukocyte Esterase-Dipstick 25 /ul (Negative); Nitrite-Dipstick Negative (Negative); Occult Blood-Urine 10 /ul (Negative); Protein-Dipstick Negative (Negative); Urine Bilirubin Dipstick Negative (Negative); Urine Urobilinogen 1 mg/dl (Normal)
[2023-10-05 06:12] LABS: Anion Gap 6 (5-15); BUN 12 mg/dL (7-18); BUN/Creat Ratio 12.4 RATIO (10-20); Calcium,Total 8.5 mg/dL (8.5-10.1); Chloride 102 mmol/L (98-107); Creatinine, Serum 0.97 mg/dL (0.70-1.30); EST Glomerular Filtration Rate 86 mL/min (>60); Est Glom Filt Rate - Afr Amer 104 mL/min (>60); Estimated Creatinine Clearance 104.37 ml/min; Glucose 100 mg/dL (74-106); Magnesium 2.3 mg/dL (1.6-2.6); Phosphorus 2.4 mg/dL (2.5-4.9); Potassium 3.7 mmol/L (3.5-5.1); Sodium Level 138 mmol/L (136-145)
[2023-10-05 06:14] LABS: Differential Indicated SCAN CRITERIA MET
[2023-10-05 06:50] LABS: Color, Urine Yellow (Yellow); Urine Clarity Clear (Clear)
[2023-10-05 06:52] LABS: Squamous Epithelial Cells - UA 5-10 SEEN /hpf (0-5); White Blood Cells 5-10 SEEN /hpf (0-5)
[2023-10-05 07:21] LABS: Anisocytosis 2+; Differential Comment SCANNED
--- NOTE | 2023-10-05 08:00 | PCM.PN.HOSP ---
Reason for Visit Reason for Visit: Diagnoses Alcohol use, unspecified with withdrawal delirium (10/04/23) Unspecified conjunctivitis (10/04/23) Gastrointestinal hemorrhage, unspecified (10/04/23) Subjective Subjective Patient seen remains restless. Seen in consultation by Dr. Sanches plan is for patient to undergo endoscopic evaluation on 10/06/2023 Objective Data Objective Data Vital Signs: Vital Signs Temp Pulse Resp BP Pulse Ox O2 Del Method 97.6 F L 89 16 144/87 H 98 Room Air 10/05/23 04:00 10/05/23 04:00 10/05/23 04:00 10/05/23 04:00 10/05/23 04:00 10/05/23 04:00 Oxygen Delivery Method Room Air Weight: 102.4 kg Body Mass Index (BMI) 32.3 Intake & Output: Intake and Output for Last 24 Hours 10/03/23 10/04/23 10/05/23 23:59 23:59 23:59 Intake Total 2284.0 / 2504.0 1440 / 1440 Balance 2284.0 / 2504.0 1440 / 1440 Lab / Micro Data 10/05/23 05:27 10/05/23 05:27 Labs: Laboratory Results - last 24 hr 10/04/23 05:35: Urine Color Yellow, Urine Clarity Turbid, Urine pH 5.0, Ur Specific [place] 1.030, Urine Protein 30 H, Urine Glucose (UA) Normal, Urine Ketones 150 A*, Urine Occult Blood 25 H, Urine Nitrite Negative, Urine Bilirubin Negative, Urine Urobilinogen Normal, Ur Leukocyte Esterase Negative, Urine RBC 0 SEEN, Urine WBC 0 SEEN, Ur Squamous Epith Cells 0 SEEN, Urine Bacteria 4+, Hyaline Casts 0-5 SEEN, Fine Granular Casts 25-50 SEEN, Urine Mucus 0 SEEN 10/04/23 14:13: Hgb 12.5 L, Hct 35.5 L 10/05/23 05:27: WBC 4.5, RBC 4.07 L, Hgb 12.9 L, Hct 37.5 L, MCV 92.1, MCH 31.7, MCHC 34.4, RDW Std Deviation 43.2, RDW Coeff of Guicho 13.1, Plt Count 84 L, MPV 10.0, Immature Gran % (Auto) 0.700, Neut % (Auto) 63.6, Lymph % (Auto) 25.1, [place] % (Auto) 9.5, Eos % (Auto) 0.9, Baso % (Auto) 0.2, Absolute Neuts (auto) 2.9, Absolute Lymphs (auto) 1.13, Nucleated RBC % 0, Differential Comment SCANNED, Anisocytosis 2+, Sodium 138, Potassium 3.7, Chloride 102, Carbon Dioxide 30.0, Anion Gap 6, BUN 12, Creatinine 0.97, Estim Creat Clear Calc 104.37, Est GFR (MDRD) Af Amer 104, Est GFR (MDRD) Non-Af 86, BUN/Creatinine Ratio 12.4, Glucose 100, Calcium 8.5, Phosphorus 2.4 L, Magnesium 2.3 10/05/23 05:40: Urine Color Yellow, Urine Clarity Clear, Urine pH 8.0, Ur Specific [place] 1.010, Urine Protein Negative, Urine Glucose (UA) Normal, Urine Ketones 5 H, Urine Occult Blood 10 H, Urine Nitrite Negative, Urine Bilirubin Negative, Urine Urobilinogen 1 H, Ur Leukocyte Esterase 25 H, Urine RBC 0 SEEN, Urine WBC 5-10 SEEN, Ur Squamous Epith Cells 5-10 SEEN, Urine Bacteria 0 SEEN, Urine Mucus 0 SEEN Physical Exam Narrative GENERAL: Restless HEENT: Atraumatic; normocephalic EYES; Anicteric, dry crusty discharge involving both eyes NECK; supple, normal thyroid, RESPIRATORY: Diminished to auscultation CARDIOVASCULAR: Regular S1 S2, GI: soft, normoactive bowel sounds, : No Renal angle tenderness; EXTREMITIES: No edema, no clubbing, MUSCULOSKELETAL: no muscle wasting NEURO: Awake; no lateralizing signs. SKIN: No Rash PSYCH; restless Assessment & Plan Assessment/Plan (1) Acute hyperactive alcohol withdrawal delirium: (2) Bilateral conjunctivitis: (3) Upper GI bleed: PLAN: Plan Patient is a 53-year-old with history of chronic alcohol dependence who presented with restlessness as well as nausea and vomiting with coffee-ground emesis 1. Acute GI bleed ? Suspected to be secondary to Malissa-Huang tear from intractable nausea vomiting. Patient admitted to a monitored bed managed with IV fluids, IV Protonix with every 6 H&H ordered. Consult placed to GI. Patient apparently had an upper EGD on 06/26/2023 which demonstrated Malissa-Huang tear injected and treated with a heater probe as well as acute gastritis ? 10/05/2023 upper EGD planned for 10/06/2023 2. Acute toxic encephalopathy secondary to acute alcohol withdrawal ? In a patient with chronic alcohol dependence with multiple admissions for alcohol withdrawal. Admitted to monitored bed managed with phenobarb taper in addition to adjuvant medications for his withdrawal symptoms ? 10/05/2023; patient remains on phenobarb taper however still significantly symptomatic 3. Bilateral conjunctivitis ? Topical treatment initiated 4. Depression with anxiety ? Patient is on buspirone as well as Fluvoxamine did continue 5. Tobacco dependence - Counseled on cessation, offered nicotine patch for tobacco cravings 6. Class II obesity with BMI of 32.4 ? Weight loss advised 7. OCD ? Home medications continued 8. DVT prophylaxis Low risk, did encourage early ambulation Time spent in the patient's overall evaluation,decision-making process, review of diagnostic data, adjustment of management, discussion with other providers, nursing nursing and ancillary staff involved in patient's care documentation, 35 minutes Charges/Coding Visit Charges Inpatient E&M: 92531 Subs Hosp L2
[2023-10-05 09:45] VITALS: BP 139/94; PULSE 103; RESP 18; TEMP 36.6; O2SAT 95
[2023-10-05] MEDS: Folic Acid 1 MG Tablet PO (09:50)
[2023-10-05] MEDS: Thiamine Hydrochloride 100 MG Tablet PO (09:50)
[2023-10-05] MEDS: Pantoprazole Sodium 40 MG in 0.9% Normal Saline (100mL MB+) 100 ML 330 MG IV ×2 (09:51→21:56)
[2023-10-05] MEDS: 0.9% Saline Lock 10 ML Syringe IV (09:51)
[2023-10-05] MEDS: hydrOXYzine PAM 25 MG Capsule 50 MG PO ×2 (10:05→16:10)
[2023-10-05 15:45] VITALS: BP 154/89; PULSE 112; RESP 18; TEMP 36.6; O2SAT 98
[2023-10-05 21:50] VITALS: BP 158/60; PULSE 101; RESP 18; TEMP 36.7; O2SAT 99
[2023-10-05] MEDS: traZODone 100 MG Tablet PO (22:04)
[2023-10-06] MEDS: Ciprofloxacin 0.3% 2.5ml Bottle 2 DRP EACH EYE ×3 (01:00→09:58)
[2023-10-06 01:30] VITALS: BP 157/90; PULSE 82; RESP 16; TEMP 36.7; O2SAT 97
[2023-10-06] MEDS: Phenobarbital 32.4 MG Tablet 64.7999999999999972 MG PO ×3 (01:39→09:57)
[2023-10-06] MEDS: hydrOXYzine PAM 25 MG Capsule 50 MG PO ×2 (01:40→10:04)
[2023-10-06] MEDS: Acetaminophen 500 MG Tablet PO ×2 (01:40→10:03)
[2023-10-06 04:20] VITALS: BMI 32.3
[2023-10-06 05:40] VITALS: BP 158/94; PULSE 89; RESP 16; TEMP 36.7; O2SAT 97
--- NOTE | 2023-10-06 05:55 | EKG12_ITS ---
Test Reason : AM EKG Blood Pressure : / mmHG Vent. Rate : 085 BPM Atrial Rate : 085 BPM P-R Int : 142 ms QRS Dur : 094 ms QT Int : 394 ms P-R-T Axes : 020 -04 017 degrees QTc Int : 468 ms Normal sinus rhythm Normal ECG Confirmed by Too Pavon ([id number]), food expeditor ELVI MORA ([id number]) on 10/07/2023 9:36:22 AM Referred By: Confirmed By:Too Pavon
[2023-10-06 06:12] LABS: Absolute Lymphocyte Count 1.29 X10^3/uL (0.83-4.51); Absolute Neutrophil Count 2.6 X10^3/uL (2.0-7.7); Basophil# 0.02 X10^3/uL; Basophil% 0.4 % (0-1); Eosinophil# 0.11 X10^3/uL; Eosinophils% 2.4 % (0-5); Hematocrit 36.6 % (40-54); Hemoglobin 12.9 g/dL (13.0-16.5); Lymphocyte # 1.29 X10^3/ul (0.83-4.51); Lymphocyte % 28.3 % (19-41); Mean Corp Hgb Conc 35.2 g/dL (32-36); Mean Corpuscular Hgb 32.2 pg (27.0-32.0); Mean Corpuscular Volume 91.3 fL (80-94); Mean Platelet Vol. 10.2 fl (6.2-12.0); Monocyte# 0.52 X10^3/uL; Monocyte% 11.4 % (0-10); NRBC Flagged by Analyzer 0 % (0-5); Neutrophil # 2.59 X10^3/uL (2.7-7.7); Neutrophil % 56.8 % (47-70); POSITIVE COUNT YES; Platelet Count 87 K/mm3 (150-450); RBC Distribution Width CV 13.2 % (11.6-14.6); RBC Distribution Width SD 43.2 fl (35.1-43.9); Red Blood Count 4.01 M/mm3 (4.6-6.2); White Blood Count 4.6 K/mm3 (4.4-11.0)
--- NOTE | 2023-10-06 06:30 | EGD_PTH ---
PATHOLOGY RESULTS PATIENT: ALTHEA TIERNEY LOC: [facility] U#:[id number] AGE/SX: 53/M ROOM: [facility] RE10/04/[address]: Dr. Dagoberto Garrison DO : 1970 BED: 1 DIS: 10/06/2023 SPEC #: [id number] RECD: 10/06/23 11:26 STATUS: GRAYSON BARAJAS #: [id number] AMEYA: 10/06/23 06:[address]: Smooth Sanches DEPT: SURGICAL PATHOLOGY RECD BY: Mary Ellen Cavanaugh ENTERED: 10/06/23 11:26 SP TYPE: EGD BIOPSY OTHR DR: MD Dr. Dagoberto Ruiz DO Dr. Eric Smith, MD Dr. Prakash Chand, MD Tissues: Gastric mucous membrane Procedures: Surgery Specimen Level IV Comments: @ Ordering doctor for SUIV edited from to @ daniel BELLO at 10/06/23 1447 @ Submitting doctor edited from to @ by CATHERINEOD at 10/06/23 1447 HEADER OPERATION: EGD, biopsy PRE-OP DIAGNOSIS: Upper GI bleed TISSUE SUBMITTED: Gastric biopsy MICROSCOPIC DIAGNOSIS Gastric mucosa, biopsy: Mild chronic gastritis. See comment. AM:brandi 10/07/2023 COMMENT The results of immunohistochemistry for Helicobacter pylori will be reported separately ([id number]). MICROSCOPIC DESCRIPTION Slides are reviewed. GROSS DESCRIPTION Received in fixative is one container labeled with the patient's name and designated gastric biopsy. The specimen consists of multiple irregular fragments of light [place]ton soft tissue that in aggregate measure 1.0 x 0.5 x 0.1 cm. The specimen is totally submitted in one cassette. / STEPHIE:bradni 10/06/2023 TC:3 CPT: 28565
--- NOTE | 2023-10-06 06:30 | IMM_PTH ---
PATHOLOGY RESULTS PATIENT: ALTHEA TIERNEY LOC: [facility] U#:[id number] AGE/SX: 53/M ROOM: [facility] RE10/04/[address]: Dr. Dagoberto Garrison DO : 1970 BED: 1 DIS: 10/06/2023 SPEC #: [id number] RECD: 10/06/23 14:49 STATUS: GRAYSON REQ #: [id number] AMEYA: 10/06/23 06:[address]: Smooth Sanches DEPT: IMMUNOHISTOCHEMISTRY RECD BY: Deann Senior ENTERED: 10/06/23 14:50 SP TYPE: IMMUNO OTHR DR: MD Dr. Dagoberto Ruiz DO Dr. Eric Smith, MD Dr. Prakash Chand, MD Tissues: Stomach, NOS Procedures: H Pylori (initial) PHYSICIAN & INSTITUTION [place] [id number] SPECIMEN INFORMATION: Tissue Source: Gastric biopsy Clinical Info: Upper GI bleed Specimen Number: [id number] CPT code: 57418 METHODOLOGY: Deparaffinized sections of prefer/formalin-fixed tissue or PAP/DQ stained slides are incubated with monoclonal/polyclonal antibodies/oligonucleotide probes. Localization is made via biotin free immunoperoxidase method. Appropriate controls are performed and reacted as expected. Results on target cell population are indicated in the following table: RESULTS: ANTIBODY / CLONE RESULT H Pylori (polyclonal) negative These tests were developed and their performance characteristics determined by [facility]. They may not have been cleared or approved by the U.S. Food and Drug Administration. The FDA has determined that such clearance or approval is not necessary. The above immunohistochemical/dualISH markers are ordered and reviewed by the Pathologist. INTERPRETATION: Gastric biopsy: Negative for Helicobacter pylori organisms. AM:brandi 10/07/2023
[2023-10-06 06:52] LABS: Anion Gap 6 (5-15); BUN 5 mg/dL (7-18); BUN/Creat Ratio 5.6 RATIO (10-20); Calcium,Total 8.6 mg/dL (8.5-10.1); Chloride 103 mmol/L (98-107); Creatinine, Serum 0.89 mg/dL (0.70-1.30); EST Glomerular Filtration Rate 94 mL/min (>60); Est Glom Filt Rate - Afr Amer 114 mL/min (>60); Estimated Creatinine Clearance 113.75 ml/min; Glucose 91 mg/dL (74-106); Potassium 3.6 mmol/L (3.5-5.1); Sodium Level 138 mmol/L (136-145)
[2023-10-06] MEDS: Lactated Ringers 1,000 ML 15 ML IV (07:04)
--- NOTE | 2023-10-06 07:24 | OP.EGD_ITS ---
Patient Name: Jake Gutierrez Procedure Date: 10/06/2023 7:02 AM Date of : 1970 Age: 53 Procedure: Upper GI endoscopy Indications: Coffee-ground emesis Providers: Smooth Sanches DO Medicines: Monitored Anesthesia Care Patient Profile: This is a 53 year old male. Refer to note in patient chart for documentation of history and physical. Patient has symptoms of acute vomiting. Complications: No immediate complications. Procedure: Pre-Anesthesia Assessment: - Prior to the procedure, a History and Physical was performed, and patient medications and allergies were reviewed. The patient is competent. The risks and benefits of the procedure and the sedation options and risks were discussed with the patient. All questions were answered and informed consent was obtained. Patient identification and proposed procedure were verified by the physician in the pre-procedure area. Mental Status Examination: alert and oriented. Airway Examination: normal oropharyngeal airway and neck mobility. Respiratory Examination: clear to auscultation. CV Examination: normal. Prophylactic Antibiotics: The patient does not require prophylactic antibiotics. Prior Anticoagulants: The patient has taken no anticoagulant or antiplatelet agents. ASA Grade Assessment: II - A patient with mild systemic disease. After reviewing the risks and benefits, the patient was deemed in satisfactory condition to undergo the procedure. The anesthesia plan was to use monitored anesthesia care (MAC). Immediately prior to administration of medications, the patient was re-assessed for adequacy to receive sedatives. The heart rate, respiratory rate, oxygen saturations, blood pressure, adequacy of pulmonary ventilation, and response to care were monitored throughout the procedure. The physical status of the patient was re-assessed after the procedure. After obtaining informed consent, the endoscope was passed under direct vision. Throughout the procedure, the patient's blood pressure, pulse, and oxygen saturations were monitored continuously. The Endoscope was introduced through the mouth, and advanced to the second part of duodenum. The upper GI endoscopy was accomplished without difficulty. The patient tolerated the procedure well. Scope In: 7:13:56 AM Scope Out: 7:16:05 AM Total Procedure Duration Time 0 hours 2 minutes 9 seconds Findings: LA Grade C (one or more mucosal breaks continuous between tops of 2 or more mucosal folds, less than 75% circumference) esophagitis with no bleeding was found 35 to 39 cm from the incisors. Diffuse severe inflammation characterized by erosions, erythema, friability and granularity was found in the entire examined stomach. Biopsies were taken with a cold forceps for histology. Verification of patient identification for the specimen was done. Estimated blood loss was minimal. Biopsies were taken with a cold forceps for Helicobacter pylori testing. Verification of patient identification for the specimen was done. Estimated blood loss was minimal. No gross lesions were noted in the second portion of the duodenum. Impression: - LA Grade C erosive esophagitis with no bleeding. - Acute alcoholic gastritis. Biopsied. - No gross lesions in the second portion of the duodenum. Recommendation: - Return patient to [facility] for [facility] care. - Resume previous diet. - Continue present medications. - Await pathology results. Procedure Code(s): --- Professional --- 80297, Esophagogastroduodenoscopy, flexible, transoral; with biopsy, single or multiple CPT copyright 2021 [employer]. All rights reserved. The codes documented in this report are preliminary and upon linen controller review may be revised to meet current compliance requirements. Smooth Sanches DO 10/06/2023 7:22:58 AM This report has been signed electronically. Number of Addenda: 0 Note Initiated On: 10/06/2023 7:02 AM
--- NOTE | 2023-10-06 07:24 | OP.CCLET_ITS ---
10/06/2023 Dagoberto Mari [address] [place] [address] Re : Upper GI endoscopy procedure for Jake Gutierrez Dear Dr. Mari This procedure was performed on Friday, October 06, 2023. My impressions and recommendations are as follows: Impressions : - LA Grade C erosive esophagitis with no bleeding. - Acute alcoholic gastritis. Biopsied. - No gross lesions in the second portion of the duodenum. Recommendations : - Return patient to [facility] for ongoing care. - Resume previous diet. - Continue present medications. - Await pathology results. My findings are described in the full procedure note, which is enclosed. If I can be of further assistance, please feel free to contact me at . Sincerely, Smooth Sanches, 10/06/2023 7:22:58 AM This report has been signed electronically.
[2023-10-06 07:25] VITALS: BP 133/84; BP 158/94; PULSE 90; RESP 16; TEMP 36.6; O2SAT 95
[2023-10-06 07:30] VITALS: BP 129/83; BP 158/94; PULSE 83; RESP 16; O2SAT 96
[2023-10-06 07:35] VITALS: BP 130/88; BP 158/94; PULSE 84; RESP 16; TEMP 36.6; O2SAT 96
[2023-10-06 08:01] VITALS: BP 146/81; PULSE 80; RESP 18; TEMP 36.6; O2SAT 97
--- NOTE | 2023-10-06 08:07 | NURSING ---
pt refuses/declines to have telemetry monitoring placed back on. aware of purpose/risks/ramifications
[2023-10-06 08:36] LABS: Partial Thromboplast Time 26.9 Seconds (24.1-36.2)
[2023-10-06 08:42] LABS: Prothrombin Time (Protime)PT. 13.3 SECONDS (11.7-14.9)
--- NOTE | 2023-10-06 09:51 | PN.HOSP_ITS ---
Reason for Visit Reason for Visit: Diagnoses Alcohol use, unspecified with withdrawal delirium (10/04/23) Unspecified conjunctivitis (10/04/23) Gastrointestinal hemorrhage, unspecified (10/04/23) Subjective Subjective Feels well. Has been up ambulating in the hallways stating that he is bored . Objective Data Objective Data Vital Signs: Vital Signs Temp Pulse Resp BP Pulse Ox O2 Del Method 36.6 C 80 18 146/81 H 97 Room Air 10/06/23 08:01 10/06/23 08:01 10/06/23 08:01 10/06/23 08:01 10/06/23 08:01 10/06/23 08:01 Oxygen Delivery Method Room Air Weight: 102.4 kg Body Mass Index (BMI) 32.3 Intake & Output: Intake and Output for Last 24 Hours 10/04/23 10/05/23 10/06/23 23:59 23:59 23:59 Intake Total 2284.0 / 2504.0 3910 / 3910 Balance 2284.0 / 2504.0 3910 / 3910 Lab / Micro Data 10/06/23 05:05 10/06/23 05:05 Labs: Laboratory Results - last 24 hr 10/06/23 05:05: WBC 4.6, RBC 4.01 L, Hgb 12.9 L, Hct 36.6 L, MCV 91.3, MCH 32.2 H, MCHC 35.2, RDW Std Deviation 43.2, RDW Coeff of [place]icho 13.2, Plt Count 87 L, MPV 10.2, Immature Gran % (Auto) 0.700, Neut % (Auto) 56.8, Lymph % (Auto) 28.3, [place] % (Auto) 11.4 H, Eos % (Auto) 2.4, Baso % (Auto) 0.4, Absolute Neuts (auto) 2.6, Absolute Lymphs (auto) 1.29, Nucleated RBC % 0, PT 13.3, INR 1.0, APTT 26.9, Sodium 138, Potassium 3.6, Chloride 103, Carbon Dioxide 29.0, Anion Gap 6, BUN 5 L, Creatinine 0.89, Estim Creat Clear Calc 113.75, Est GFR (MDRD) Af Amer 114, Est GFR (MDRD) Non-Af 94, BUN/Creatinine Ratio 5.6 L, Glucose 91, Calcium 8.6 Physical Exam Const alert and no apparent distress Resp normal respiratory effort Cardio regular rate and regular rhythm Neuro Sensorium / Orientation: awake and alert Assessment & Plan Assessment/Plan (1) Acute hyperactive alcohol withdrawal delirium: (2) Bilateral conjunctivitis: (3) Upper GI bleed: PLAN: Plan Acute GI bleed * EGD shoed gastritis, erosive esophagitis w/o bleeding. * Continue with Protonix twice daily. * Follow-up gastroenterology in 3 months. Acute toxic encephalopathy secondary to acute alcohol withdrawal * In a patient with chronic alcohol dependence with multiple admissions for alcohol withdrawal. Admitted to monitored bed managed with phenobarb taper in addition to adjuvant medications for his withdrawal symptoms * Patient doing well. Little groggy with the phenobarbital. Asked about what his plans are after discharge, he did not answer in the affirmative. Told him that we have provided resources for him to follow-up with. I am concerned the patient will not follow-up and resume drinking. Bilateral conjunctivitis * Topical treatment initiated Chronic conditions: * Depression with anxiety? Patient is on buspirone as well as Fluvoxamine did continue * Tobacco dependence - Counseled on cessation, offered nicotine patch for tobacco cravings * Class II obesity with BMI of 32.4? Weight loss advised * OCD? Home medications continued DVT prophylaxis Low risk, did encourage early ambulation Discharge home Charges/Coding Visit Charges Inpatient E&M: 47104 Subs Hosp L2
[2023-10-06] MEDS: Thiamine Hydrochloride 100 MG Tablet PO (09:57)
[2023-10-06] MEDS: Pantoprazole Sodium 40 MG in 0.9% Normal Saline (100mL MB+) 100 ML 330 MG IV (09:57)
[2023-10-06] MEDS: Folic Acid 1 MG Tablet PO (09:57)
[2023-10-06] MEDS: 0.9% Saline Lock 10 ML Syringe IV (10:53)
--- NOTE | 2023-10-06 14:25 | DS.PCM_ITS ---
Providers Date of Admission: 10/04/23 Primary Care Physician: Dr. Dagoberto Mari MD Consultations 10/04/23 05:50 Consult: Gastroenterology Routine Consulting Provider: [facility] Reason for Consult: GI bleed, alocholic EMERGENT Consult: Yes MD Notified: Yes Date Notified: 10/04/23 Time Notified: 05:50 Method of Notification: Verbal Reason For Visit: ACUTE ALCOHOL WITHDRAWAL, UPPER GI BLEED Diagnosis Discharge Diagnosis (1) Acute hyperactive alcohol withdrawal delirium: Status: Acute Code(s): F10.931 - Alcohol use, unspecified with withdrawal delirium (2) Bilateral conjunctivitis: Status: Acute Code(s): H10.9 - Unspecified conjunctivitis (3) Upper GI bleed: Status: Acute Code(s): K92.2 - Gastrointestinal hemorrhage, unspecified Plan Acute GI bleed * EGD shoed gastritis, erosive esophagitis w/o bleeding. * Continue with Protonix twice daily. * Follow-up gastroenterology in 3 months. Acute toxic encephalopathy secondary to acute alcohol withdrawal * In a patient with chronic alcohol dependence with multiple admissions for alcohol withdrawal. Admitted to monitored bed managed with phenobarb taper in addition to adjuvant medications for his withdrawal symptoms * Patient doing well. Little groggy with the phenobarbital. Asked about what his plans are after discharge, he did not answer in the affirmative. Told him that we have provided resources for him to follow-up with. I am concerned the patient will not follow-up and resume drinking. Bilateral conjunctivitis * Topical treatment initiated Chronic conditions: * Depression with anxiety? Patient is on buspirone as well as Fluvoxamine did continue * Tobacco dependence - Counseled on cessation, offered nicotine patch for to bacco cravings * Class II obesity with BMI of 32.4? Weight loss advised * OCD? Home medications continued DVT prophylaxis Low risk, did encourage early ambulation Discharge home Medications at Discharge Home Medications trazodone 150 mg tablet 300 mg (2 x 150 mg) PO QHS PRN Sleep 30 days #60 tabs 05/11/18 buspirone 15 mg tablet 10 mg PO TID depression 05/22/22 gabapentin 300 mg capsule 300 mg PO QHS sleep 05/22/22 fluvoxamine 100 mg tablet 150 mg PO BID OCD 08/04/22 acetaminophen 500 mg tablet 500 mg PO Q4H PRN PRN Pain 1-10 or Temp > 100.4 F #0 tabs 10/06/23 ciprofloxacin HCl 0.3 % eye drops 2 drp EACH EYE Q4 #2.5 mL 10/06/23 multivitamin 1 tab PO DAILY #30 tabs 10/06/23 pantoprazole 40 mg tablet,delayed release (Protonix) 40 mg PO BID #60 tabs 10/06/23 Hospital Course Operations None Procedures EGD Summary of Care Provided Minutes Spent on Discharge: 32 Weight / BMI Weight Weight: 102.4 kg Body Mass Index (BMI) 32.3 ABG / Lab / Microbiology Data 10/06/23 05:05 10/06/23 05:05 Laboratory: Laboratory Results - last 24 hr 10/06/23 05:05: WBC 4.6, RBC 4.01 L, Hgb 12.9 L, Hct 36.6 L, MCV 91.3, MCH 32.2 H, MCHC 35.2, RDW Std Deviation 43.2, RDW Coeff of [place] 13.2, Plt Count 87 L, MPV 10.2, Immature Gran % (Auto) 0.700, Neut % (Auto) 56.8, Lymph % (Auto) 28.3, [place] % (Auto) 11.4 H, Eos % (Auto) 2.4, Baso % (Auto) 0.4, Absolute Neuts (auto) 2.6, Absolute Lymphs (auto) 1.29, Nucleated RBC % 0, PT 13.3, INR 1.0, APTT 26.9, Sodium 138, Potassium 3.6, Chloride 103, Carbon Dioxide 29.0, Anion Gap 6, BUN 5 L, Creatinine 0.89, Estim Creat Clear Calc 113.75, Est GFR (MDRD) Af Amer 114, Est GFR (MDRD) Non-Af 94, BUN/Creatinine Ratio 5.6 L, Glucose 91, Calcium 8.6 D/C Instructions Discharge Diet: No restrictions Meaningful Use Info Meaningful Use Diagnoses (Choose all that apply): None applicable Discharge Plan Admission Admit Date/Time: 10/04/23 05:49 Primary Reason for Your Visit: Gastrointestinal bleed Attending Provider: Dagoberto Garrison Primary Care Provider: Dagoberto Mari Consulting Providers: Ervin Montgomery; Matthew Ulrich Instructions Additional Instructions / Restrictions: You had a gastrointestinal bleed. The scope you had into your stomach did not show any obvious source of bleeding but he did have a raw esophagus and stomach which the bleeding could have been from there. It is recommend that you take Protonix, AKA pantoprazole, twice daily. Do recommend he follow-up with gastroenterology. He also went through some alcohol withdrawal and were started on phenobarbital. I do recommend that you follow-up with [facility] or [facility] as outpatient. Discharge Orders/Prescriptions Prescriptions: New acetaminophen 500 mg Tablet 500 mg PO Q4H PRN PRN (Reason: Pain 1-10 or Temp > 100.4 F) Qty: 0 0RF ciprofloxacin HCl 0.3 % Drops 2 drp EACH EYE Q4 Qty: 2.5 0RF multivitamin Tablet 1 tab PO DAILY Qty: 30 0RF pantoprazole [Protonix] 40 mg tablet,delayed release (DR/EC) 40 mg PO BID Qty: 60 0RF Continued trazodone 150 MG tablet 300 mg PO QHS PRN (Reason: Sleep) 30 Days Qty: 60 0RF buspirone 15 mg tablet 10 mg PO TID Patient Comments: TAKE 1 TABLET BY MOUTH THREE TIMES DAILY gabapentin 300 MG capsule 300 mg PO QHS fluvoxamine 100 MG tablet 150 mg PO BID Referrals / Follow Up: Dagoberto Mari MD [Primary Care Provider] - Within 2 Weeks Smooth Sanches DO [Med Staff - Active Staff] - Within 3 Months Disposition Disposition (needs filled in before D/C Order can be placed): Home, Self Care Charges/Coding Visit Charges Inpatient E&M: 99838 Disch Hosp >30min
--- NOTE | 2023-10-06 14:47 | PHA.DC.MC.R ---
Pharmacy [facility] has performed discharge medication reconciliation and counseling for this patient. 1. CIPROFLOXACIN 0.3% EYE DROPS 2GTT OU Q4H 2. MULTIVITAMIN 1T PO DAILY 3. PANTOPRAZOLE 40MG PO BID The patient's discharge medication list was reviewed for discrepancies and discrepancies were resolved. The patient was counseled on the following discharge medications and changes in medications for homegoing were reviewed. The Reason for Use, instructions for use, and potential side effects were reviewed for all new medications. The patient's questions regarding all of their medications were answered. The patient was able to verbally demonstrate an understanding of their discharge medications. Patient counseled by pharmacy informatics manager, Richard. Medications at Discharge Home Medications trazodone 150 mg tablet 300 mg (2 x 150 mg) PO QHS PRN Sleep 30 days #60 tabs 05/11/18 buspirone 15 mg tablet 10 mg PO TID depression 05/22/22 gabapentin 300 mg capsule 300 mg PO QHS sleep 05/22/22 fluvoxamine 100 mg tablet 150 mg PO BID OCD 08/04/22 acetaminophen 500 mg tablet 500 mg PO Q4H PRN PRN Pain 1-10 or Temp > 100.4 F #0 tabs 10/06/23 ciprofloxacin HCl 0.3 % eye drops 2 drp EACH EYE Q4 #2.5 mL 10/06/23 multivitamin 1 tab PO DAILY #30 tabs 10/06/23 pantoprazole 40 mg tablet,delayed release (Protonix) 40 mg PO BID #60 tabs 10/06/23
== END 2023-10-06 16:42 | disposition home or self-care (01) | DRG 772 ==
LOC: ED 05:39 → PCU 06:13
PROVIDERS: Internal Medicine; Internal Medicine Gastroenterology; Admitting Provider Internal Medicine; Emergency Provider Emergency Medicine; PCP Family Medicine
PROC: 0DJ08ZZ Inspection of Upper Intestinal Tract, Via Natural or Artificial Opening Endoscopic (ICD-10-PCS; CPT 43235; principal; 2023-10-06 06:40)
DX: F10.231 Alcohol dependence with withdrawal delirium (principal); G92.9 Unspecified toxic encephalopathy; D69.6 Thrombocytopenia, unspecified; K92.0 Hematemesis; K22.10 Ulcer of esophagus without bleeding; K70.10 Alcoholic hepatitis without ascites; I10 Essential (primary) hypertension; F32.A Depression, unspecified; K29.20 Alcoholic gastritis without bleeding; H10.9 Unspecified conjunctivitis; F41.9 Anxiety disorder, unspecified; Z68.32 Body mass index [BMI] 32.0-32.9, adult; Y90.3 Blood alcohol level of 60-79 mg/100 ml; T51.91XA Toxic effect of unspecified alcohol, accidental (unintentional), initial encounter; E66.9 Obesity, unspecified; F42.9 Obsessive-compulsive disorder, unspecified; R73.9 Hyperglycemia, unspecified; Z79.899 Other long term (current) drug therapy; Z87.891 Personal history of nicotine dependence
CPT/HCPCS: 36415; 80048; 80053; 80307; 80320; 81001; 83690; 83735; 84100; 85014; 85018; 85025; 85610; 85730; 88305; 88342; 93005; 97110; 97165; 99284; 99406; J7040; J7120; A4216; G0480; J2405

== ENCOUNTER 2023-11-15 01:43 | Emergency (ER) | payer MEDICAID, SELFPAY ==
[2023-11-15 01:45] VITALS: BP 168/101; PULSE 72; RESP 16; TEMP 37.2; O2SAT 97; BMI 32.7
[2023-11-15 01:52] VITALS: BP 168/101; PULSE 72; RESP 18; TEMP 37.2; O2SAT 97
--- NOTE | 2023-11-15 01:58 | EDS_ITS ---
HPI HPI - Psych History of Present Illness Chief Complaint: Mental Health Detail of Chief Complaint: Depression and racing thoughts Informant: patient Narrative Narrative: Patient presents to the emergency department with complaint of feeling depressed and having thoughts of self-harm. Thoughts of possibly overdosing on his medications are standing in front of a train. Patient's had some legal troubles of late. Does admit to occasional fleeting thoughts of harming others such as his girlfriend but has never acted on these. Patient having frequent thoughts of self-harm. Patient also had some chest discomfort earlier this evening and states he gets that sometimes when he gets really anxious. Denies recent travel or surgery. No heart history. Patient was an alcoholic but has not been drinking recently. He was part of the ramp program here at the hospital. Does admit to occasional marijuana use. Denies other illicit drugs. [facility] Medical History Alcohol abuse Anxiety Depression ETOH abuse History of foot fracture HTN (hypertension) Methamphetamine abuse OCD (obsessive compulsive disorder) Tobacco use Transaminitis Home Medications buspirone 15 mg tablet 10 mg PO BID depression 05/22/22 [History Last Taken 10/03/23 21:00] gabapentin 300 mg capsule 600 mg PO QHS sleep 05/22/22 [History Last Taken 10/03/23 21:00] fluvoxamine 100 mg tablet 150 mg PO BID OCD 08/04/22 [History Last Taken 10/03/23 21:00] multivitamin 1 tab PO DAILY #30 tabs 10/06/23 [Rx Last Taken Unknown] propranolol 120 mg capsule,24 hr,extended release 120 mg PO DAILY 11/15/23 [History Last Taken Unknown] trazodone 150 mg tablet 150 mg PO QHS PRN Sleep 11/15/23 [History Last Taken Unknown] Allergy/AdvReac Type Severity Reaction Status Date / Time amoxicillin AdvReac Upset Verified 11/15/23 01:44 Stomach Family History Mother No problems noted. Father CAD (coronary artery disease) Heart disease Myocardial infarction Surgical History S/P herniorrhaphy Social History household members: significant other housing: apartment Smoking Status: Current some day smoker tobacco type: cigarettes alcohol intake: current details: Prior 1/2 gallon whiskey 80 proof daily->currently drinking heavy Vodka. substance use type: former substance user Date of last use: Prior history of use, methamphetamine noted prior. and methamphetamine ROS ROS ED Review of Systems ROS Unobtainable: other Constitutional Constitutional ED: Reports lethargy; Denies chills, fever(s), sweats or weight loss Eyes Eyes: Denies blurry vision, change in vision or diplopia ENT ENT ED: Denies rhinorrhea or sore throat Cardiovascular Cardiovascular: Reports chest pain; Denies orthopnea or racing heartbeat Respiratory/Chest Respiratory/Chest: Denies cough, dyspnea, dyspnea on exertion, orthopnea or sputum Gastrointestinal Gastrointestinal: Denies abdominal pain, diarrhea, nausea or vomiting Genitourinary Genitourinary ED: Denies dysuria, hematuria or urinary frequency Musculoskeletal Musculoskeletal: Denies arthralgias, back pain, myalgias or neck pain Integumentary Denies abscess, Abrasions or rash Neurologic Neurologic: Denies headache(s) or weakness Psychiatric Psychiatric: Reports anxiety, depression and suicidal thoughts Endocrine Endocrinology: Denies polydipsia, polyphagia or polyuria Hematologic/Lymphatic Hematologic/Lymphatic: Denies easy bleeding, easy bruising or lymphadenopathy Allergic/Immunologic Allergic/Immunologic ED: Denies mouth swelling, tongue swelling or urticaria EXAM Physical Exam Const Vital Signs: 11/15/23 01:45 11/15/23 01:52 11/15/23 02:01 Temperature 99.0 F 99.0 F Temperature Source Temporal Temporal Pulse Rate 72 72 70 Respiratory Rate 16 18 16 Blood Pressure 168/101 H 168/101 H 171/99 H Blood Pressure Mean 123 123 123 Pulse Ox 97 97 99 Oxygen Delivery Method Room Air Room Air Room Air 11/15/23 03:44 Temperature Temperature Source Pulse Rate 89 Respiratory Rate 16 Blood Pressure 156/98 H Blood Pressure Mean 117 Pulse Ox 97 Oxygen Delivery Method Room Air Positive well nourished and well developed General Appearance ED: well developed and NAD HEENT Reports TM's clear and moist mucous membranes normocephalic and atraumatic; Negative for trauma or tenderness Tympanic Membrane ED: Yes TM's clear Eyes PERRL and EOMs intact bilaterally General Eye ED: Negative for pale conjunctiva or scleral icterus Neck no lymphadenopathy, supple and no JVD General: Negative for tenderness Chest Wall inspection of chest normal and palpation of chest normal Chest: Negative for tenderness Resp normal respiratory effort and clear to auscultation bilaterally Effort and Inspection: Negative for respiratory distress or pain with movement Auscultation: Negative for rhonchi, wheezes or diminished lung sounds Cardio regular rate, regular rhythm, S1 normal heart sound, S2 normal heart sound and no murmurs Peripheral Pulses: pulses 2+ throughout GI normal to inspection, nondistended, normoactive bowel sounds, soft to palpation, non-tender, non-distended and no masses Back/Spine no CVA tenderness and no thoracic nor lumbar tenderness Extremity normal to inspection General Extremety ED: Negative for edema General Extremity: Negative for edema Neuro oriented x3, CN's II-XII intact bilaterally, no sensory deficits noted and gait normal Sensorium / Orientation: awake, alert, oriented to person, oriented to place and oriented to time Motor Exam: strength 5/5 throughout and strength abnormal Psych mental status grossly normal Activity / Motor Behavior: appropriate eye contact Mood & Affect: depressed and apathetic Thought Content: suicidality Skin no rashes or lesions noted and no wounds MDM MDM MDM Narrative Medical decision making narrative: Patient was seen by crisis after he was medically cleared. He continues to feel suicidal. Crisis felt he would benefit from inpatient hospitalization and patient is willing. CBC with differential was unremarkable. Chemistries unremarkable. Toxicology screen was negative. Alcohol was normal at 4.0. Lab Data Attestation: I reviewed the patient's lab results. Labs: Laboratory Results - last 24 hr 11/15/23 11/15/23 02:27 02:35 WBC 8.6 RBC 4.96 Hgb 15.4 Hct 45.0 MCV 90.7 MCH 31.0 MCHC 34.2 RDW Std Deviation 44.4 H RDW Coeff of [place] 13.4 Plt Count 168 MPV 9.6 Immature Gran % (Auto) 0.300 Neut % (Auto) 64.9 Lymph % (Auto) 22.8 [place] % (Auto) 6.6 Eos % (Auto) 4.7 Baso % (Auto) 0.7 Absolute Neuts (auto) 5.6 Absolute Lymphs (auto) 1.96 Nucleated RBC % 0 Differential Comment SCANNED Platelet Estimate ADEQUATE Plt Morphology Comment CLUMPED Sodium 142 Potassium 4.4 Chloride 108 H Carbon Dioxide 28.0 Anion Gap 6 BUN 13 Creatinine 1.11 Estim Creat Clear Calc 91.65 Est GFR (MDRD) Af Amer 89 Est GFR (MDRD) Non-Af 73 BUN/Creatinine Ratio 11.7 Glucose 87 Calcium 9.1 Troponin I High Sens 10 Urine Opiates Screen NEGATIVE Urine Methadone Screen NEGATIVE Ur Barbiturates Screen NEGATIVE Ur Phencyclidine Scrn NEGATIVE Ur Amphetamines Screen NEGATIVE MDMA (Ecstasy) Screen NEGATIVE U Benzodiazepines Scrn NEGATIVE Urine Cocaine Screen NEGATIVE U Cannabinoids Screen NEGATIVE Ur Drug Screen Comment Ethyl Alcohol 4.0 EKG Initial EKG: Attestation: I personally reviewed and interpreted this EKG as follows: Comments: Sinus rhythm with rate of 65 bpm with no acute ST segment changes Discharge Plan Triage Chief Complaint: Mental Health ED Provider: Earnest Kilgore Dx/Rx/DC Orders Clinical Impression: Suicidal ideation, Anxiety, Depression Prescriptions: No Action buspirone 15 mg tablet 10 mg PO BID gabapentin 300 MG capsule 600 mg PO QHS fluvoxamine 100 MG tablet 150 mg PO BID multivitamin Tablet 1 tab PO DAILY Qty: 30 0RF propranolol 120 mg capsule,extended release 24 hr 120 mg PO DAILY trazodone 150 MG tablet 150 mg PO QHS PRN (Reason: Sleep) Primary Care Provider: Dagoberto Mari Referrals: Dagoberto Mari MD [Primary Care Provider] - Disposition Disposition: Psychiatric Hospital or Unit
--- NOTE | 2023-11-15 01:58 | EKG12_ITS ---
Test Reason : MHC Blood Pressure : / mmHG Vent. Rate : 065 BPM Atrial Rate : 065 BPM P-R Int : 170 ms QRS Dur : 088 ms QT Int : 416 ms P-R-T Axes : 034 -07 000 degrees QTc Int : 432 ms Poor data quality, interpretation may be adversely affected Normal sinus rhythm Normal ECG Confirmed by Too Pavon ([id number]), online content editor ARMIDA TOMLINSON ([id number]) on 11/18/2023 8:57:45 AM Referred By: NATALIA Confirmed By:Too Pavon
[2023-11-15 02:01] VITALS: BP 171/99; PULSE 70; RESP 16; O2SAT 99
--- NOTE | 2023-11-15 02:32 | ED.RN ---
No sitter per Dr. Kilgore
[2023-11-15 02:41] LABS: Absolute Lymphocyte Count 1.96 X10^3/uL (0.83-4.51); Absolute Neutrophil Count 5.6 X10^3/uL (2.0-7.7); Basophil# 0.06 X10^3/uL; Basophil% 0.7 % (0-1); Eosinophils% 4.7 % (0-5); Hemoglobin 15.4 g/dL (13.0-16.5); Lymphocyte # 1.96 X10^3/ul (0.83-4.51); Lymphocyte % 22.8 % (19-41); Mean Corp Hgb Conc 34.2 g/dL (32-36); Mean Corpuscular Volume 90.7 fL (80-94); Mean Platelet Vol. 9.6 fl (6.2-12.0); Monocyte# 0.57 X10^3/uL; Monocyte% 6.6 % (0-10); NRBC Flagged by Analyzer 0 % (0-5); Neutrophil # 5.56 X10^3/uL (2.7-7.7); Neutrophil % 64.9 % (47-70); POSITIVE COUNT YES; Platelet Count 168 K/mm3 (150-450); RBC Distribution Width CV 13.4 % (11.6-14.6); RBC Distribution Width SD 44.4 fl (35.1-43.9); Red Blood Count 4.96 M/mm3 (4.6-6.2); White Blood Count 8.6 K/mm3 (4.4-11.0)
[2023-11-15 02:55] LABS: Amphetamine Urine VISTA NEGATIVE (<1000 ng/mL); Barbiturate Urine VISTA NEGATIVE (< 200 ng/mL); Benzodiazepine Urine VISTA NEGATIVE (< 200 ng/mL); Cocaine Urine VISTA NEGATIVE (< 300 ng/mL); Ecstacy Urine VISTA NEGATIVE (< 500 ng/mL); Methadone Urine VISTA NEGATIVE (< 300 ng/mL); PCP Urine VISTA NEGATIVE (< 25 ng/mL); THC Urine VISTA NEGATIVE (< 50 ng/mL); Vista UDS pH Range 8
[2023-11-15 03:17] LABS: Anion Gap 6 (5-15); BUN 13 mg/dL (7-18); BUN/Creat Ratio 11.7 RATIO (10-20); Calcium,Total 9.1 mg/dL (8.5-10.1); Chloride 108 mmol/L (98-107); Creatinine, Serum 1.11 mg/dL (0.70-1.30); EST Glomerular Filtration Rate 73 mL/min (>60); Est Glom Filt Rate - Afr Amer 89 mL/min (>60); Estimated Creatinine Clearance 91.65 ml/min; Glucose 87 mg/dL (74-106); Potassium 4.4 mmol/L (3.5-5.1); Sodium Level 142 mmol/L (136-145); Troponin-I HS 10 pg/mL (3.0-78.0)
[2023-11-15 03:44] VITALS: BP 156/98; PULSE 89; RESP 16; O2SAT 97
[2023-11-15 03:56] LABS: Differential Comment SCANNED; Differential Indicated SCAN CRITERIA MET
[2023-11-15 03:57] LABS: Platelet Estimate ADEQUATE (ADEQ); Platelet Morphology CLUMPED
[2023-11-15] MEDS: LORazepam 1 MG Tablet PO (04:45)
[2023-11-15 07:41] VITALS: BP 142/87; PULSE 74; RESP 16; TEMP 36.8; O2SAT 97
[2023-11-15 09:28] VITALS: BP 125/88; PULSE 69; RESP 14; TEMP 36.4; O2SAT 97
== END 2023-11-15 09:30 ==
PROVIDERS: Emergency Provider Emergency Medicine; PCP Family Medicine; Visit Provider Emergency Medicine
DX: R45.851 Suicidal ideations (principal); F41.9 Anxiety disorder, unspecified; F32.A Depression, unspecified; F17.210 Nicotine dependence, cigarettes, uncomplicated; Z65.3 Problems related to other legal circumstances; I10 Essential (primary) hypertension; Z79.899 Other long term (current) drug therapy; R07.9 Chest pain, unspecified
CPT/HCPCS: 80048; 80307; 80320; 84484; 85025; 93005; 99283; G0480

== ENCOUNTER 2023-12-30 20:18 | Emergency (ER) | payer MEDICAID, SELFPAY ==
[2023-12-30 20:19] VITALS: BP 159/94; PULSE 107; RESP 16; TEMP 36.7; O2SAT 96; BMI 33.0
--- NOTE | 2023-12-30 20:47 | EX.ED.DYSGE1 ---
HPI History of Present Illness Chief Complaint: Depression [facility] Medical History Alcohol abuse Anxiety Depression ETOH abuse History of foot fracture HTN (hypertension) Methamphetamine abuse OCD (obsessive compulsive disorder) Tobacco use Transaminitis Home Medications multivitamin 1 tab PO DAILY #30 tabs 10/06/23 [Rx Last Taken Unknown] propranolol 120 mg capsule,24 hr,extended release 120 mg PO DAILY 11/15/23 [History Last Taken Unknown] trazodone 150 mg tablet 150 mg PO QHS PRN Sleep 11/15/23 [History Last Taken Unknown] divalproex 500 mg tablet,extended release 24 hr 500 mg PO BID 12/30/23 [History Last Taken Unknown] fluoxetine 20 mg tablet 20 mg PO DAILY 12/30/23 [History Last Taken Unknown] olanzapine 15 mg tablet 15 mg PO QHS 12/30/23 [History Last Taken Unknown] olanzapine 5 mg tablet 5 mg PO DAILY 12/30/23 [History Last Taken Unknown] Allergy/AdvReac Type Severity Reaction Status Date / Time amoxicillin AdvReac Upset Verified 12/30/23 20:27 Stomach Family History Mother No problems noted. Father CAD (coronary artery disease) Heart disease Myocardial infarction Surgical History S/P herniorrhaphy Social History household members: significant other housing: apartment Smoking Status: Current some day smoker tobacco type: cigarettes and smokeless tobacco alcohol intake: current details: Prior 1/2 gallon whiskey 80 proof daily->currently drinking heavy Vodka. substance use type: former substance user Date of last use: Prior history of use, methamphetamine noted prior. and methamphetamine EXAM Physical Exam Const Vital Signs: 12/30/23 20:19 12/30/23 21:18 12/30/23 22:00 Temperature 98.1 F Temperature Source Temporal Pulse Rate 107 H 99 101 H Respiratory Rate 16 18 16 Blood Pressure 159/94 H 147/89 H 148/89 H Blood Pressure Mean 115 108 108 Pulse Ox 96 98 98 Oxygen Delivery Method Room Air Room Air Room Air MDM MDM MDM Narrative Medical decision making narrative: HISTORY OF PRESENT ILLNESS: 53-year-old male presents with concern for depression. Thinks may need to be admitted. He states I think I need to go somewhere. He further states he would kill himself by taking pills. States he has no attempts at suicide. Notes he thinks about hurting significant other sometimes but denies any homicidal ideation. Denies any auditory visual hallucinations REVIEW OF SYSTEMS: Pertinent positives: Depression Pertinent negatives: Headache, chest pain, shortness of breath, vomiting, fever PHYSICAL EXAM: Nursing triage notes reviewed, Vital signs reviewed Constitutional: please see mdm HENT: MMM Eyes: Pupils equal round and reactive to light, Extraocular muscles intact Neck: No stridor, no JVD, full neck ROM Lungs: Clear to auscultation, No wheezing or rales. No increased work of breathing, no conversational dyspnea, no accessory muscle use, no nasal flaring. No respiratory distress noted Heart: Regular rate and rhythm, No murmurs, No rubs and No gallops, 2+ distal pulses (radial, femoral, posterior tibial) in all extremities Abdomen: Soft, there is no tenderness, rigidity, rebound or guarding, no obvious peritoneal signs, no palpable pulsatile abdominal masses, no auscultated abdominal bruit : No CVAT Extremities: No edema Neuro: No focal neurological deficits, cranial nerves II through XII intact, 5/5 strength in all extremities. Intact sensation to light touch in all extremities, 2+ reflexes bilateral patella tendons. Normal gait. No ataxia. Skin: No rash or lesions noted Psych: Depressed mood, goal-directed thought process, no response to internal stimuli MEDICAL DECISION MAKING: Chief Complaint: Depression External records reviewed: No recent ED visits or evaluations for psychiatric emergencies Factors affecting care: alcohol abuse, anxiety, hypertension Social determinants of health: History of alcohol use, alcohol withdrawal History obtained from others: The patient's family member Consults: Behavioral health Specialist [facility] Narrative: Patient was initially mildly tachycardic otherwise afebrile nontoxic-appearing. Patient appeared depressed. Given report of stress ideation with plan patient was pink slipped. I considered the following differential diagnosis: Depression, anxiety, suicidal ideation, homicidal nation, auditory visualizations, psychosis I obtained labs or medical clearance ALL IMAGES (IF OBTAINED) HAVE BEEN PERSONALLY REVIEWED AND INTERPRETED BY MYSELF. CBC without leukocytosis, severe anemia, no thrombocytopenia. BMP without evidence of significant electrolyte abnormalities, no anion gap, no acute kidney injury. Urine drug screen negative Serum alcohol negative Patient was medically cleared. He is awaiting crisis evaluation and possible placement. Signed out to p.m. physician pending crisis evaluation and final disposition The patient and/or family, caregivers express understanding. The patient and/or family, caregivers agrees with the plan. Shared decision making: I will have a discussion with the patient and or visitors regarding risk/benefits of further testing or admission. They will be made aware of of the risk/benefits inherent in this decision they will be given the opportunity to voice understanding. Total critical care time today provided was at least 0 minutes. This excludes separately billable procedures. Critical care time (if documented) is secondary to the patient having high probability of clinically significant/life threatening deterioration in the patient's condition which required my urgent intervention. Impression: 1. Depression 2. Suicide ideation Dispo: Pending behavioral health assessment This note was generated with [employer] dictation software. It may contain incorrect words, spelling, and punctuation that were not noted in review of the chart prior to signing. Lab Data Labs: Laboratory Results - last 24 hr 12/30/23 12/30/23 21:20 22:10 WBC 5.6 RBC 4.71 Hgb 14.7 Hct 42.7 MCV 90.7 MCH 31.2 MCHC 34.4 RDW Std Deviation 43.2 RDW Coeff of [place] 13.1 Plt Count 169 MPV 9.5 Immature Gran % (Auto) 0.400 Neut % (Auto) 75.9 H Lymph % (Auto) 14.0 L [place] % (Auto) 7.7 Eos % (Auto) 1.3 Baso % (Auto) 0.7 Absolute Neuts (auto) 4.2 Absolute Lymphs (auto) 0.78 L Nucleated RBC % 0 Sodium 139 Potassium 3.8 Chloride 106 Carbon Dioxide 28.0 Anion Gap 5 BUN 12 Creatinine 1.09 Estim Creat Clear Calc 93.73 Est GFR (MDRD) Af Amer 90 Est GFR (MDRD) Non-Af 75 BUN/Creatinine Ratio 11.0 Glucose 125 H Calcium 9.0 Urine Opiates Screen NEGATIVE Urine Methadone Screen NEGATIVE Ur Barbiturates Screen NEGATIVE Ur Phencyclidine Scrn NEGATIVE Ur Amphetamines Screen NEGATIVE MDMA (Ecstasy) Screen NEGATIVE U Benzodiazepines Scrn NEGATIVE Urine Cocaine Screen NEGATIVE U Cannabinoids Screen NEGATIVE Ur Drug Screen Comment Ethyl Alcohol 6.0 Discharge Plan Triage Chief Complaint: Depression ED Provider: Higinio Ugarte Dx/Rx/DC Orders Prescriptions: No Action multivitamin Tablet 1 tab PO DAILY Qty: 30 0RF olanzapine 5 mg tablet 5 mg PO DAILY divalproex 500 mg tablet extended release 24 hr 500 mg PO BID olanzapine 15 mg tablet 15 mg PO QHS fluoxetine 20 mg tablet 20 mg PO DAILY propranolol 120 mg capsule,extended release 24 hr 120 mg PO DAILY trazodone 150 MG tablet 150 mg PO QHS PRN (Reason: Sleep) Primary Care Provider: Dagoberto Mari Referrals: Dagoberto Mari MD [Primary Care Provider] -
--- NOTE | 2023-12-30 20:47 | ED.RN ---
spoke with Dr. farris and informed him that the pt stated sometimes i dont want to wake up, i worry that i might hurt darien. pt denies plans just concerned it could happen.
--- NOTE | 2023-12-30 21:08 | ED.RN ---
Per Dr. Ugarte, no sitter needed. Patient does not have plan and is here voluntarily.
[2023-12-30 21:18] VITALS: BP 147/89; PULSE 99; RESP 18; O2SAT 98
[2023-12-30 21:26] LABS: Absolute Lymphocyte Count 0.78 X10^3/uL (0.83-4.51); Absolute Neutrophil Count 4.2 X10^3/uL (2.0-7.7); Basophil# 0.04 X10^3/uL; Basophil% 0.7 % (0-1); Eosinophil# 0.07 X10^3/uL; Eosinophils% 1.3 % (0-5); Hematocrit 42.7 % (40-54); Hemoglobin 14.7 g/dL (13.0-16.5); Lymphocyte # 0.78 X10^3/ul (0.83-4.51); Mean Corp Hgb Conc 34.4 g/dL (32-36); Mean Corpuscular Hgb 31.2 pg (27.0-32.0); Mean Corpuscular Volume 90.7 fL (80-94); Mean Platelet Vol. 9.5 fl (6.2-12.0); Monocyte# 0.43 X10^3/uL; Monocyte% 7.7 % (0-10); NRBC Flagged by Analyzer 0 % (0-5); Neutrophil # 4.24 X10^3/uL (2.7-7.7); Neutrophil % 75.9 % (47-70); Platelet Count 169 K/mm3 (150-450); RBC Distribution Width CV 13.1 % (11.6-14.6); RBC Distribution Width SD 43.2 fl (35.1-43.9); Red Blood Count 4.71 M/mm3 (4.6-6.2); White Blood Count 5.6 K/mm3 (4.4-11.0)
[2023-12-30 21:46] LABS: Anion Gap 5 (5-15); BUN 12 mg/dL (7-18); Chloride 106 mmol/L (98-107); Creatinine, Serum 1.09 mg/dL (0.70-1.30); EST Glomerular Filtration Rate 75 mL/min (>60); Est Glom Filt Rate - Afr Amer 90 mL/min (>60); Estimated Creatinine Clearance 93.73 ml/min; Glucose 125 mg/dL (74-106); Potassium 3.8 mmol/L (3.5-5.1); Sodium Level 139 mmol/L (136-145)
[2023-12-30 22:00] VITALS: BP 148/89; PULSE 101; RESP 16; O2SAT 98
[2023-12-30 22:43] LABS: Amphetamine Urine VISTA NEGATIVE (<1000 ng/mL); Barbiturate Urine VISTA NEGATIVE (< 200 ng/mL); Benzodiazepine Urine VISTA NEGATIVE (< 200 ng/mL); Cocaine Urine VISTA NEGATIVE (< 300 ng/mL); Ecstacy Urine VISTA NEGATIVE (< 500 ng/mL); Methadone Urine VISTA NEGATIVE (< 300 ng/mL); PCP Urine VISTA NEGATIVE (< 25 ng/mL); THC Urine VISTA NEGATIVE (< 50 ng/mL); Vista UDS pH Range 5
[2023-12-30] MEDS: LORazepam 1 MG Tablet 2 MG PO (23:02)
--- NOTE | 2023-12-30 23:42 | NURSING ---
CALLED [facility]ISIS AT [id number] AND FAXED CHART
[2023-12-31] MEDS: Divalproex (ER) 500 MG Tablet PO (04:55)
[2023-12-31] MEDS: OLANZapine 5 MG/TAB TAB.RAPDIS 15 MG PO (04:55)
[2023-12-31] MEDS: traZODone 100 MG Tablet 150 MG PO (04:57)
[2023-12-31 06:00] VITALS: BP 136/76; PULSE 69; RESP 16; O2SAT 94
[2023-12-31] MEDS: Acetaminophen 500 MG Tablet 1000 MG PO (06:20)
[2023-12-31] MEDS: Propranolol LA 60 MG Capsule 120 MG PO (06:22)
[2023-12-31 06:59] VITALS: BP 136/76; PULSE 69; RESP 16; TEMP 36.7; O2SAT 94
--- NOTE | 2023-12-31 07:17 | ED.RN ---
Attempted to call report twice to [place], no answer.
== END 2023-12-31 07:08 ==
PROVIDERS: Emergency Provider Emergency Medicine; PCP Family Medicine; Visit Provider Emergency Medicine
DX: F32.A Depression, unspecified (principal); R45.851 Suicidal ideations; F41.9 Anxiety disorder, unspecified; F10.10 Alcohol abuse, uncomplicated; I10 Essential (primary) hypertension; F17.210 Nicotine dependence, cigarettes, uncomplicated; F17.220 Nicotine dependence, chewing tobacco, uncomplicated; Z79.899 Other long term (current) drug therapy
CPT/HCPCS: 80048; 80307; 80320; 85025; 99283; G0480

== ENCOUNTER 2024-01-18 14:59 | Emergency (ER) | payer MEDICAID, SELFPAY ==
[2024-01-18 15:00] VITALS: BP 144/90; PULSE 67; RESP 19; TEMP 35.9; O2SAT 95; BMI 32.3
--- NOTE | 2024-01-18 15:34 | EX.ED.VIS.PS ---
HPI HPI - Psych History of Present Illness Chief Complaint: Suicidal Informant: patient Narrative Narrative: Presents with continued suicidal ideations plans been going on for months. History anxiety and depression. He states plans of standing from [place]. Also states has thoughts of hurting his girlfriend, he states he has never hurt in the past. She just hospitalized at [facility] discharged a little over a week ago states symptoms returned. There was medication changes for which she gave a list. He states he only missed yesterday's dose. He denies any recent alcohol use. History of alcohol abuse. He is currently has an ankle monitor because of this. Denies recreational drug use. Denies any medical complaints of cough vomiting diarrhea or any urinary symptoms. Prior similar symptoms: Yes PFSH PFSH Medical History Alcohol abuse Alcohol abuse OCD (obsessive compulsive disorder) History of foot fracture Anxiety Tobacco use HTN (hypertension) Depression Transaminitis Methamphetamine abuse ETOH abuse Home Medications ?Medication ?Instructions ?Recorded ?Last Taken ?Type multivitamin 1 tab PO DAILY #30 tabs 10/06/23 Unknown Rx trazodone 150 mg tablet 150 mg PO QHS PRN Sleep 11/15/23 Unknown History fluoxetine 20 mg tablet 20 mg PO DAILY 12/30/23 Unknown History olanzapine 15 mg tablet 10 mg PO QHS 12/30/23 Unknown History olanzapine 5 mg tablet 7.5 mg PO DAILY 12/30/23 Unknown History benztropine 0.5 mg tablet 0.5 mg PO BID 01/18/24 Unknown History oxcarbazepine 150 mg tablet 150 mg PO BID 01/18/24 Unknown History Allergy/AdvReac Type Severity Reaction Status Date / Time amoxicillin AdvReac Upset Verified 12/30/23 20:27 Stomach Family History Mother No problems noted. Father CAD (coronary artery disease) Heart disease Myocardial infarction Surgical History S/P herniorrhaphy Social History household members: significant other housing: apartment Smoking Status: Current some day smoker tobacco type: cigarettes and smokeless tobacco alcohol intake: current details: Prior 1/2 gallon whiskey 80 proof daily->currently drinking heavy Vodka. substance use type: former substance user Date of last use: Prior history of use, methamphetamine noted prior. and methamphetamine ROS ROS ED Constitutional Constitutional ED: Denies chills, fever(s) or sweats Eyes Eyes: Denies change in vision ENT ENT ED: Denies dysphagia or sore throat Cardiovascular Cardiovascular: Denies chest pain, leg edema, palpitations or racing heartbeat Respiratory/Chest Respiratory/Chest: Denies cough, dyspnea or dyspnea on exertion Gastrointestinal Gastrointestinal: Denies abdominal pain, diarrhea, nausea or vomiting Genitourinary Genitourinary ED: Denies dysuria, hematuria or urinary frequency Musculoskeletal Musculoskeletal: Denies back pain, extremity pain or neck pain Integumentary Denies rash or wounds Neurologic Neurologic: Denies headache(s), paresthesias or weakness Psychiatric Psychiatric: Reports suicidal ideation and suicidal thoughts EXAM Physical Exam Const Vital Signs: 01/18/24 15:00 01/18/24 20:04 01/18/24 20:04 Temperature 96.7 F L 96.7 F L Temperature Source Temporal Pulse Rate 67 71 71 Respiratory Rate 19 H 14 14 Blood Pressure 144/90 H 126/70 H 126/70 H Blood Pressure Mean 108 88 88 Pulse Ox 95 97 97 Oxygen Delivery Method Room Air Positive well nourished and well developed General Appearance ED: well developed and NAD HEENT Reports moist mucous membranes normocephalic and atraumatic Eyes EOMs intact bilaterally and conjunctivae normal General Eye ED: Yes normal appearance of both eyes Neck no lymphadenopathy and supple General: Negative for tenderness Chest Wall Chest: Negative for tenderness Resp normal respiratory effort and normal air movement Effort and Inspection: symmetric chest movement; Negative for respiratory distress Cardio regular rate, regular rhythm and no murmurs Peripheral Pulses: pulses 2+ throughout GI normal to inspection, nondistended, normoactive bowel sounds and non-tender Palpation: Negative for guarding or rebound tenderness present Back/Spine no CVA tenderness and no thoracic nor lumbar tenderness Extremity normal to inspection General Extremety ED: Negative for edema or tenderness General Extremity: Negative for edema Neuro oriented x3 and no sensory deficits noted Sensorium / Orientation: awake and alert Psych Psych Narrative: Flat affect, however cooperative. He admits to suicidal ideations with a plan. He admits to thoughts of hurting second other with no specific plans or history of this. Skin no rashes or lesions noted and no wounds MDM MDM MDM Narrative Medical decision making narrative: Interventions / MDM: Differential diagnosis: Suicidal ideation with a plan, history of anxiety and depression Diagnosis considered but do not suspect: N/A My EKG interpretation: N/A Imaging independently reviewed and interpreted by myself: N/A External documents reviewed: N/A Test considered but not ordered:N/A ED course: Patient cooperative flat affect. Presents with recurrent continued suicidal ideations. Will obtain medical clearance labs. Will plan to have evaluation by crisis. 1653: Patient request anxiety medicines for which hydroxyzine was ordered. Medical workup negative. He is medically cleared. Will await crisis evaluation. 1944: Patient evaluated by crisis, agree with concerns. Patient has been accepted to [facility] under Dr. Herrera. Awaiting transport. Re-evaluation: stable Disposition discussed with patient/family/significant other: Case discussed with consulting clinician: Mobile crisis This note was generated with [employer] dictation software. It may contain incorrect words, spelling, and punctuation that were not noted in checking the note before signing. Lab Data Attestation: I reviewed the patient's lab results. Labs: Laboratory Results - last 24 hr 01/18/24 01/18/24 15:39 16:17 WBC 6.9 RBC 4.51 L Hgb 14.1 Hct 40.7 MCV 90.2 MCH 31.3 MCHC 34.6 RDW Std Deviation 42.7 RDW Coeff of [place] 13.1 Plt Count 194 MPV 9.6 Immature Gran % (Auto) 0.400 Neut % (Auto) 68.8 Lymph % (Auto) 20.1 [place] % (Auto) 6.6 Eos % (Auto) 3.2 Baso % (Auto) 0.9 Absolute Neuts (auto) 4.8 Absolute Lymphs (auto) 1.39 Nucleated RBC % 0 Sodium 137 Potassium 3.9 Chloride 108 H Carbon Dioxide 22.0 Anion Gap 7 BUN 12 Creatinine 1.19 Estim Creat Clear Calc 84.94 Est GFR (MDRD) Af Amer 82 Est GFR (MDRD) Non-Af 68 BUN/Creatinine Ratio 10.1 Glucose 128 H Calcium 8.7 Urine Opiates Screen NEGATIVE Urine Methadone Screen NEGATIVE Ur Barbiturates Screen NEGATIVE Ur Phencyclidine Scrn NEGATIVE Ur Amphetamines Screen NEGATIVE MDMA (Ecstasy) Screen NEGATIVE U Benzodiazepines Scrn NEGATIVE Urine Cocaine Screen NEGATIVE U Cannabinoids Screen NEGATIVE Ur Drug Screen Comment Ethyl Alcohol < 3.0 Discharge Plan Triage Chief Complaint: Suicidal ED Provider: Lalit Albarran Dx/Rx/DC Orders Clinical Impression: Depression with suicidal ideation, History of anxiety Prescriptions: No Action multivitamin Tablet 1 tab PO DAILY Qty: 30 0RF olanzapine 5 mg tablet 7.5 mg PO DAILY olanzapine 15 mg tablet 10 mg PO QHS fluoxetine 20 mg tablet 20 mg PO DAILY oxcarbazepine 150 mg tablet 150 mg PO BID benztropine 0.5 mg tablet 0.5 mg PO BID trazodone 150 MG tablet 150 mg PO QHS PRN (Reason: Sleep) Primary Care Provider: Dagoberto Mari Referrals: Dagoberto Mari MD [Primary Care Provider] - Print Language: Kazakh Disposition Disposition: Psychiatric Hospital or Unit Discharge Location: [facility] Discharge Date/Time: 01/18/24 20:25
[2024-01-18 16:09] LABS: Absolute Lymphocyte Count 1.39 X10^3/uL (0.83-4.51); Absolute Neutrophil Count 4.8 X10^3/uL (2.0-7.7); Basophil# 0.06 X10^3/uL; Basophil% 0.9 % (0-1); Eosinophil# 0.22 X10^3/uL; Eosinophils% 3.2 % (0-5); Hematocrit 40.7 % (40-54); Hemoglobin 14.1 g/dL (13.0-16.5); Lymphocyte # 1.39 X10^3/ul (0.83-4.51); Lymphocyte % 20.1 % (19-41); Mean Corp Hgb Conc 34.6 g/dL (32-36); Mean Corpuscular Hgb 31.3 pg (27.0-32.0); Mean Corpuscular Volume 90.2 fL (80-94); Mean Platelet Vol. 9.6 fl (6.2-12.0); Monocyte# 0.46 X10^3/uL; Monocyte% 6.6 % (0-10); NRBC Flagged by Analyzer 0 % (0-5); Neutrophil # 4.77 X10^3/uL (2.7-7.7); Neutrophil % 68.8 % (47-70); Platelet Count 194 K/mm3 (150-450); RBC Distribution Width CV 13.1 % (11.6-14.6); RBC Distribution Width SD 42.7 fl (35.1-43.9); Red Blood Count 4.51 M/mm3 (4.6-6.2); White Blood Count 6.9 K/mm3 (4.4-11.0)
[2024-01-18 16:20] LABS: Alcohol, Blood (Medical)-Serum < 3.0 mg/dL
[2024-01-18 16:22] LABS: Anion Gap 7 (5-15); BUN 12 mg/dL (7-18); BUN/Creat Ratio 10.1 RATIO (10-20); Calcium,Total 8.7 mg/dL (8.5-10.1); Chloride 108 mmol/L (98-107); Creatinine, Serum 1.19 mg/dL (0.70-1.30); EST Glomerular Filtration Rate 68 mL/min (>60); Est Glom Filt Rate - Afr Amer 82 mL/min (>60); Estimated Creatinine Clearance 84.94 ml/min; Glucose 128 mg/dL (74-106); Potassium 3.9 mmol/L (3.5-5.1); Sodium Level 137 mmol/L (136-145)
[2024-01-18 16:45] LABS: Amphetamine Urine VISTA NEGATIVE (<1000 ng/mL); Barbiturate Urine VISTA NEGATIVE (< 200 ng/mL); Benzodiazepine Urine VISTA NEGATIVE (< 200 ng/mL); Cocaine Urine VISTA NEGATIVE (< 300 ng/mL); Ecstacy Urine VISTA NEGATIVE (< 500 ng/mL); Methadone Urine VISTA NEGATIVE (< 300 ng/mL); PCP Urine VISTA NEGATIVE (< 25 ng/mL); THC Urine VISTA NEGATIVE (< 50 ng/mL); Vista UDS pH Range 6
[2024-01-18] MEDS: hydrOXYzine PAM 25 MG Capsule 50 MG PO (16:45)
--- NOTE | 2024-01-18 16:48 | NURSING ---
CALLED CRISIS AT [phone] AND FAXED CHART
[2024-01-18 20:04] VITALS: BP 126/70; PULSE 71; RESP 14; TEMP 35.9; O2SAT 97
--- NOTE | 2024-01-18 20:27 | ED.RN ---
This attempted to call report to [facility]. The staff asked this nurse to call back in 45 minutes to an hour. I gave the facility our phone number to call back for when they were ready for report.
== END 2024-01-18 20:25 ==
LOC: ED 15:23
PROVIDERS: Emergency Provider Emergency Medicine; PCP Family Medicine; Visit Provider Emergency Medicine
DX: R45.851 Suicidal ideations (principal); F32.A Depression, unspecified; F41.9 Anxiety disorder, unspecified; F17.210 Nicotine dependence, cigarettes, uncomplicated; Z79.899 Other long term (current) drug therapy; I10 Essential (primary) hypertension; F42.9 Obsessive-compulsive disorder, unspecified; F17.220 Nicotine dependence, chewing tobacco, uncomplicated
CPT/HCPCS: 36415; 80048; 80307; 80320; 85025; 87635; 99284; J7030; G0480

== ENCOUNTER → 2024-01-29 | Outpatient (CLI) | payer MEDICAID, SELFPAY ==
[2024-01-29 17:50] LABS: Absolute Lymphocyte Count 1.49 X10^3/uL (0.83-4.51); Absolute Neutrophil Count 2.7 X10^3/uL (2.0-7.7); Basophil# 0.06 X10^3/uL; Basophil% 1.2 % (0-1); Eosinophil# 0.16 X10^3/uL; Eosinophils% 3.2 % (0-5); Hematocrit 44.4 % (40-54); Hemoglobin 15.1 g/dL (13.0-16.5); Lymphocyte # 1.49 X10^3/ul (0.83-4.51); Mean Corpuscular Hgb 31.5 pg (27.0-32.0); Mean Corpuscular Volume 92.5 fL (80-94); Mean Platelet Vol. 9.7 fl (6.2-12.0); Monocyte# 0.47 X10^3/uL; Monocyte% 9.5 % (0-10); NRBC Flagged by Analyzer 0 % (0-5); Neutrophil # 2.73 X10^3/uL (2.7-7.7); Neutrophil % 55.1 % (47-70); Platelet Count 197 K/mm3 (150-450); RBC Distribution Width CV 13.2 % (11.6-14.6)
[2024-01-29 18:26] LABS: ALB/GLOB Ratio 1.2 RATIO (0.9-2.4); AST(SGOT) 17 U/L (15-37); Alanine Aminotransfer ALT/SGPT 26 U/L (16-61); Alkaline Phosphatase 63 U/L (45-117); Anion Gap 6 (5-15); BUN 9 mg/dL (7-18); BUN/Creat Ratio 8.7 RATIO (10-20); Calcium,Total 9.2 mg/dL (8.5-10.1); Chloride 106 mmol/L (98-107); Creatinine, Serum 1.03 mg/dL (0.70-1.30); EST Glomerular Filtration Rate 80 mL/min (>60); Est Glom Filt Rate - Afr Amer 97 mL/min (>60); Globulin 3.4 g/dL (2.2-4.2); Glucose 96 mg/dL (74-106); Potassium 4.5 mmol/L (3.5-5.1); Protein, Total 7.4 g/dL (6.4-8.2); Sodium Level 139 mmol/L (136-145)
== END | disposition home or self-care (01) ==
LOC: MFPLAB 16:39
PROVIDERS: PCP Family Medicine; Visit Provider Family Medicine
DX: F42.9 Obsessive-compulsive disorder, unspecified (principal)
CPT/HCPCS: 36415; 80053; 82140; 85025

== ENCOUNTER → 2024-03-02 | Outpatient (CLI) | payer MEDICAID, SELFPAY ==
[2024-03-07 16:07] LABS: Testosterone, % Free 2.45 % (1.50-4.20); Testosterone, Total 351 ng/dL (264-916)
== END | disposition home or self-care (01) ==
LOC: MFPLAB 15:36
PROVIDERS: PCP Family Medicine; Visit Provider Family Medicine
DX: N52.9 Male erectile dysfunction, unspecified (principal)
CPT/HCPCS: 36415; 84402; 84403

== ENCOUNTER → 2024-06-04 | Outpatient (CLI) | payer MEDICAID, SELFPAY ==
[2024-06-04 18:20] LABS: ALB/GLOB Ratio 1.3 RATIO (0.9-2.4); AST(SGOT) 25 U/L (15-37); Alanine Aminotransfer ALT/SGPT 50 U/L (16-61); Alkaline Phosphatase 53 U/L (45-117); Anion Gap 5 (5-15); BUN 17 mg/dL (7-18); BUN/Creat Ratio 15.3 RATIO (10-20); Calcium,Total 8.9 mg/dL (8.5-10.1); Chloride 107 mmol/L (98-107); Creatinine, Serum 1.11 mg/dL (0.70-1.30); EST Glomerular Filtration Rate 73 mL/min (>60); Est Glom Filt Rate - Afr Amer 88 mL/min (>60); Glucose 107 mg/dL (74-106); Potassium 4.1 mmol/L (3.5-5.1); Sodium Level 138 mmol/L (136-145)
[2024-06-04 18:28] LABS: Hemoglobin A1c 4.8 % (3.8-5.6)
== END | disposition home or self-care (01) ==
LOC: MFPLAB 16:01
PROVIDERS: PCP Family Medicine; Visit Provider Family Medicine
DX: E16.2 Hypoglycemia, unspecified (principal)
CPT/HCPCS: 36415; 80053; 83036

== ENCOUNTER → 2024-11-22 | Outpatient (CLI) | payer MEDICAID, SELFPAY ==
[2024-11-22 18:19] LABS: Absolute Lymphocyte Count 1.34 X10^3/uL (0.83-4.51); Absolute Neutrophil Count 2.8 X10^3/uL (2.0-7.7); Basophil# 0.05 X10^3/uL; Basophil% 1.1 % (0-1); Eosinophil# 0.11 X10^3/uL; Eosinophils% 2.4 % (0-5); Hematocrit 43.4 % (40-54); Hemoglobin 15.2 g/dL (13.0-16.5); Lymphocyte # 1.34 X10^3/ul (0.83-4.51); Lymphocyte % 28.6 % (19-41); Mean Corpuscular Hgb 31.7 pg (27.0-32.0); Mean Corpuscular Volume 90.4 fL (80-94); Monocyte# 0.41 X10^3/uL; Monocyte% 8.8 % (0-10); NRBC Flagged by Analyzer 0 % (0-5); Neutrophil # 2.76 X10^3/uL (2.7-7.7); Neutrophil % 58.9 % (47-70); Platelet Count 184 K/mm3 (150-450); RBC Distribution Width CV 13.6 % (11.6-14.6); RBC Distribution Width SD 45.6 fl (35.1-43.9); White Blood Count 4.7 K/mm3 (4.4-11.0)
[2024-11-22 18:29] LABS: Microalbumin,Random Urine < 12.0 mg/L (NO RANGE EST.); Microalbumin:Creatinine Ratio UNABLE TO CALCULATE mg/g CRE
[2024-11-22 18:30] LABS: Ammonia 41.7 umol/L (16-60)
[2024-11-22 18:33] LABS: ALB/GLOB Ratio 1.6 RATIO (0.9-2.4); AST(SGOT) 29 U/L (<=37); Alanine Aminotransfer ALT/SGPT 39 U/L (<=46); Albumin, Serum 4.3 g/dL (3.5-5.0); Alkaline Phosphatase 57 U/L (40-129); Anion Gap 12 (5-15); BUN 9 mg/dL (4-19); BUN/Creat Ratio 8.6 RATIO (10-20); Calcium,Total 9.1 mg/dL (7.6-11.0); Carbon Dioxide 20.3 mmol/L (21.0-32.0); Chloride 106 mmol/L (98-108); Creatinine, Serum 1.01 mg/dL (0.70-1.20); EST Glomerular Filtration Rate 88 (>60); Globulin 2.6 g/dL (2.2-4.2); Glucose 110 mg/dL (70-99); Potassium 4.2 mmol/L (3.3-5.1); Protein, Total 6.9 g/dL (5.9-8.4); Sodium Level 138 mmol/L (133-145); Total Bilirubin 0.44 mg/dL (0.00-1.30)
== END | disposition home or self-care (01) ==
LOC: MTLAB 15:48
PROVIDERS: PCP Family Medicine; Referring Provider Family Medicine; Visit Provider Family Medicine
DX: I10 Essential (primary) hypertension (principal); F41.1 Generalized anxiety disorder
CPT/HCPCS: 36415; 80053; 82043; 82140; 82570; 85025